=== PATIENT | male | born 1960 | race Caucasian/White ===

== ENCOUNTER 2018-12-20 02:55 | Inpatient (IN) ==
--- NOTE | 2018-12-20 03:24 | Emergency Department Note ---
Disposition Clinical Impression: Non-STEMI (non-ST elevated myocardial infarction), Acute decompensated heart failure, SOB (shortness of breath) Chest pain Qualifiers: Chest pain type: unspecified Qualified Code(s): R07.9 - Chest pain, unspecified Disposition: Admitted As Inpatient Condition: Good Time of Disposition: 05:30 SOB HPI - General Chief Complaint: ED Shortness of Breath/Dyspnea Stated Complaint: KYLE Time Seen by Provider: 12/20/18 03:00 Source: patient, EMS Limitations: no limitations Nursing Notes Reviewed: Yes Vital Signs Reviewed: Yes - History of Present Illness Patient is a 58-year-old male with past medical history of cirrhosis, ascites, COPD, GERD, hypertension, type 2 diabetes who presents with shortness of breath and chest pain. Patient says that the symptoms started earlier this afternoon. States that he was eating some pizza at the time and felt substernal chest pain that was sharp, did not radiate, worsened with exertion. Chest pain lasted about an hour and was not relieved with rest. Patient did not try any other medications to help with the pain. Shortness of breath also has been worsening since this afternoon. Chest pain does not worsen with deep inspiration. He endorses a dry cough, no wheezing. Denies any fevers or chills. Denies nausea, vomiting. - Related Data Home Medications Medication Instructions Recorded Confirmed Folic Acid 1 mg PO DAILY 04/18/15 06/24/15 Furosemide [Lasix] 40 mg PO BID 04/18/15 06/24/15 GlipiZIDE XL (24 HR) [Glucotrol XL] 10 mg PO 0800 04/18/15 06/24/15 Metoprolol [Lopressor] 25 mg PO BID 04/18/15 06/24/15 Omeprazole [PriLOSEC] 40 mg PO DAILY 04/18/15 06/24/15 TraMADol [Ultram] 100 mg PO TID PRN 04/18/15 06/24/15 Docusate [Colace] 100 mg PO DAILY 06/23/15 06/23/15 Tamsulosin [Flomax] 0.4 mg PO DAILY 06/23/15 06/23/15 Thiamine Mononitrate [Vitamin B-1] 100 mg PO DAILY 06/23/15 06/24/15 Previous Rx's Medication Instructions Recorded Spironolactone [Aldactone] 100 mg PO TID #90 tablet 04/18/15 predniSONE [PredniSONE] 60 mg PO DAILY 5 Days tablet 10/14/15 Nortriptyline [Pamelor] 25 mg PO TID PRN #21 capsule 12/08/18 Allergies Allergy/AdvReac Type Severity Reaction Status Date / Time No Known Allergies Allergy Verified 12/08/18 20:09 All systems ED: reviewed and negative except as stated. Review of Systems: As Per HPI Constitutional: Denies: fever, chills, weakness Eyes: Denies: eye pain, eye discharge, vision change ENT ED: Denies: ear pain, throat pain, dental pain Cardiovascular: Reports: chest pain, dyspnea on exertion. Denies: palpitations Respiratory: Reports: cough, dyspnea. Denies: wheezes Gastrointestinal: Denies: abdominal pain, nausea, vomiting Genitourinary: Denies: urgency, dysuria, frequency Musculoskeletal: Denies: back pain, neck pain, joint swelling Integumentary: Denies: rash, abrasion, lesions Neurological: Denies: headache, weakness, numbness Psychiatric: Denies: anxiety, depression, suicidal thoughts Endocrine: Denies: fatigue, heat or cold intolerance, polyuria Past Medical History - Past Medical History Attestation: Yes The following information was validated with the patient. Source: patient Medical history: Reports: arthritis, cirrhosis, COPD, diabetes, GERD, hypertension Surgical history: Reports: other Psychiatric history: Reports: depression - Social History Smoking Status: Current every day smoker Smokeless Tobacco Status: No Alcohol use: Reports: occasionally Drug use: Reports: none Physical Exam GEN: Speaking in phrases while trying to catch breath, no acute distress HEENT: NC, AT. MMM. EOMI, clear conjunctiva, oropharynx clear. NECK: Supple without lymphadenopathy. No stiffness or restricted ROM. HEART: Normal rate and regular rhythm, normal S1/S1, no m/r/g LUNGS: CTAB, moving air well. No crackles or wheezes are heard. ABDOMEN: Soft, nontender, distended abdomen with good bowel sounds heard. BACK: No CVAT, no obvious deformity. EXTREMITIES: Without cyanosis, clubbing or edema. 2+ pitting edema to the bilateral lower extremities. NEUROLOGICAL: Grossly nonfocal. Alert and oriented, moving all 4 extremities. CN not formally tested but appear grossly intact. Observed to ambulate with normal gait. Skin: Warm and dry without any rash. - General Limitations: no limitations General appearance: alert, in no apparent distress Course Course Narrative: Patient was seen and examined. Blood pressure notable for 91/44. Physical exam showed clear lungs though with lower extremity edema. Labs were obtained for chest pain rule out. EKG and troponin was ordered. Chest x-ray was ordered. - Reevaluation(s) Reevaluation #1: Cardiology was consulted at this time. Patient was communicated to Dr. Jeramy Fox. Cardiology will see the patient in the morning. Will start heparin drip now. Time: 05:29 Vital Signs Temperature 98.7 F 12/20/18 03:03 Pulse Rate 85 12/20/18 03:03 Respiratory Rate 16 12/20/18 03:03 Blood Pressure 91/44 12/20/18 03:03 O2 Sat by Pulse Oximetry 100 12/20/18 03:03 Temperature 98.7 F 12/20/18 03:03 Pulse Rate 94 12/20/18 04:57 Respiratory Rate 19 12/20/18 05:01 Blood Pressure 105/73 12/20/18 04:57 O2 Sat by Pulse Oximetry 97 12/20/18 05:01 Oxygen Delivery Oxygen Delivery Nasal Cannula Shortness of Breath/Dyspnea - [facility] Narrative Medical decision making narrative: Patient is a 58-year-old male who presented with shortness of breath and chest pain concerning for a AL yesterday. Differential includes but is not limited to AL, ACS, pneumonia, COPD exacerbation, CHF exacerbation, fluid overload, pneumothorax. Labs remarkable for hemoglobin of 7.9 which is stable. Sodium was 126 which is baseline. Troponin was 4.47. BNP was 3708. Chest x-ray showed cardiomegaly with pulmonary vascular congestion, no focal consolidation concerning for pneumonia or pneumothorax. Low suspicion for COPD exacerbation given character of patient's chest pain and development of shortness of breath following. Patient does appear fluid overloaded on exam with lower extremity swelling. Cardiology was consulted patient was started on a heparin drip. Patient was given 325 aspirin. Patient was also given 40 of Lasix and DuoNeb's for shortness of breath. A CT of his chest showed no PE, showed pleural effusions possibly due to CHF or fluid overload. Patient was admitted to the hospital for management of an NSTEMI and subsequent decompensated heart failure. Patient was communicated to the hospitalists and accepted for admission. - Medical Records Medical records reviewed: Yes I reviewed the patient's medical records. - Lab Data Lab results reviewed: Yes I reviewed the patient's lab results. Result diagrams: 12/20/18 03:10 12/20/18 03:10 Lab Results 12/20/18 12/20/18 12/20/18 Range/Units 03:10 03:10 03:10 WBC 10.4 (4.3-11.1) K/mcL RBC 2.76 L (4.19-5.50) M/mcL Hgb 7.9 L (12.9-16.9) g/dL Hct 25.7 L (37.5-50.1) % MCV 93.1 (83.0-100.0) fL MCH 28.6 (28.0-33.3) pg MCHC 30.7 L (31.6-35.5) g/dL RDW 17.1 H (11.5-14.5) % Plt Count 217 (140-400) K/mcL MPV 10.0 (9.4-12.4) fL Immature Gran % 0.5 (0-4) % Seg Neutrophils % 78.6 % Lymphocytes % 10.5 % Monocytes % 9.0 % Eosinophils % 1.1 % Basophils % 0.3 % Neutrophils # 8.2 (1.6-8.9) K/mcL Lymphocytes # 1.1 (0.6-4.6) K/mcL Monocytes # 0.9 (0.0-1.3) K/mcL Eosinophils # 0.1 (0.0-0.6) K/mcL Basophils # 0.0 (0.0-0.2) K/mcL Heparin Anti-Xa, Unfract (0.30-0.70) IU/mL Sodium 126 L (136-145) mEq/L Potassium 4.1 (3.5-5.1) mEq/L Chloride 93 L (98-107) mEq/L Carbon Dioxide 22 L (23-29) mEq/L BUN 10 (6-20) mg/dL Creatinine 1.13 (0.70-1.30) mg/dL Est GFR ( Amer) > 60 (> 60) Est GFR (Non-Af Amer) > 60 (> 60) BUN/Creatinine Ratio 9 (6-26) Glucose 123 H (70-105) mg/dL Calculated Osmolality 262 L (280-300) Calcium 9.0 (8.6-10.3) mg/dL Total Bilirubin 0.6 (0.3-1.0) mg/dL AST 42 H (13-39) Units/L ALT 19 (7-52) Units/L Alkaline Phosphatase 96 (34-104) Units/L Troponin I 4.47 H* (< 0.04) ng/mL B-Natriuretic Peptide 3708 H (Less than 100) pg/mL Serum Total Protein 7.1 (6.4-8.9) g/dL Albumin 3.8 (3.5-5.7) g/dL Globulin 3.3 (2.4-3.5) g/dL Albumin/Globulin Ratio 1.2 (1.1-2.2) Blood Type Antibody Screen 12/20/18 12/20/18 Range/Units 04:20 04:20 WBC (4.3-11.1) K/mcL RBC (4.19-5.50) M/mcL Hgb (12.9-16.9) g/dL Hct (37.5-50.1) % MCV (83.0-100.0) fL MCH (28.0-33.3) pg MCHC (31.6-35.5) g/dL RDW (11.5-14.5) % Plt Count (140-400) K/mcL MPV (9.4-12.4) fL Immature Gran % (0-4) % Seg Neutrophils % % Lymphocytes % % Monocytes % % Eosinophils % % Basophils % % Neutrophils # (1.6-8.9) K/mcL Lymphocytes # (0.6-4.6) K/mcL Monocytes # (0.0-1.3) K/mcL Eosinophils # (0.0-0.6) K/mcL Basophils # (0.0-0.2) K/mcL Heparin Anti-Xa, Unfract 0.01 L (0.30-0.70) IU/mL Sodium (136-145) mEq/L Potassium (3.5-5.1) mEq/L Chloride (98-107) mEq/L Carbon Dioxide (23-29) mEq/L BUN (6-20) mg/dL Creatinine (0.70-1.30) mg/dL Est GFR ( Amer) (> 60) Est GFR (Non-Af Amer) (> 60) BUN/Creatinine Ratio (6-26) Glucose (70-105) mg/dL Calculated Osmolality (280-300) Calcium (8.6-10.3) mg/dL Total Bilirubin (0.3-1.0) mg/dL AST (13-39) Units/L ALT (7-52) Units/L Alkaline Phosphatase (34-104) Units/L Troponin I (< 0.04) ng/mL B-Natriuretic Peptide (Less than 100) pg/mL Serum Total Protein (6.4-8.9) g/dL Albumin (3.5-5.7) g/dL Globulin (2.4-3.5) g/dL Albumin/Globulin Ratio (1.1-2.2) Blood Type A POSITIVE Antibody Screen NEGATIVE - Radiology Data Radiology results reviewed: Yes I reviewed the patient's radiology results. Chest X-Ray 12/20/18 03:06 IMPRESSION: Cardiomegaly with pulmonary vascular congestion. D/ / Mark Kiran / Mark Kiran Interpreting Provider: Mark Kiran Chest CTA 12/20/18 04:01 IMPRESSION: 1. No pulmonary embolism. 2. Mild edema with small pleural effusions, consistent with CHF or fluid overload. 3. Cirrhosis. D/ / Christopher Rojas MD / Christopher Rojas MD Interpreting Provider: Christopher Rojas MD - EKG Data EKG attestation: Yes I reviewed and interpreted this EKG. EKG results narrative: An EKG was obtained at 3:02 AM. My interpretation of the EKG is NSR, no axis deviation, normal intervals, no ST elevations or depressions, no T-wave inversions. No WPW, brugada, HOCM. Compared to prior from 10/26/2015.
[2018-12-20 03:25] LABS: Basophils % 0.3 %; Eosinophils # 0.1 K/mcL (0.0-0.6); Eosinophils % 1.1 %; Hematocrit 25.7 % (37.5-50.1); Hemoglobin 7.9 g/dL (12.9-16.9); Immature Granulocytes % 0.5 % (0-4); Lymphocytes # 1.1 K/mcL (0.6-4.6); Lymphocytes % 10.5 %; Mean Corpuscular HGB Conc 30.7 g/dL (31.6-35.5); Mean Corpuscular Hemoglobin 28.6 pg (28.0-33.3); Mean Corpuscular Volume 93.1 fL (83.0-100.0); Monocytes # 0.9 K/mcL (0.0-1.3); Neutrophils # 8.2 K/mcL (1.6-8.9); Platelet Count 217 K/mcL (140-400); Red Blood Count 2.76 M/mcL (4.19-5.50); Red Cell Distribution Width 17.1 % (11.5-14.5); Segmented Neutrophils % 78.6 %; White Blood Count 10.4 K/mcL (4.3-11.1)
[2018-12-20 03:47] LABS: Alanine Aminotransferase 19 Units/L (7-52); Albumin 3.8 g/dL (3.5-5.7); Albumin/Globulin Ratio 1.2 (1.1-2.2); Alkaline Phosphatase 96 Units/L (34-104); Aspartate Amino Transferase 42 Units/L (13-39); BUN/Creatinine Ratio 9 (6-26); Bilirubin,Total 0.6 mg/dL (0.3-1.0); Blood Urea Nitrogen 10 mg/dL (6-20); Carbon Dioxide 22 mEq/L (23-29); Chloride 93 mEq/L (98-107); Globulin 3.3 g/dL (2.4-3.5); Glucose 123 mg/dL (70-105); Osmolality,Calculated 262 (280-300); Potassium 4.1 mEq/L (3.5-5.1); Sodium 126 mEq/L (136-145); Total Protein 7.1 g/dL (6.4-8.9); Troponin I 4.47 ng/mL (< 0.04); eGFR For African Americans > 60 (> 60); eGFR For Non-African Americans > 60 (> 60)
[2018-12-20] MEDS ORDERED: Isovue-370 500 ML BOTTLE IVP ONE (04:01)
[2018-12-20] MEDS ORDERED: Aspirin 325 MG TABLET PO ONE (04:03)
--- NOTE | 2018-12-20 04:08 | Emergency Department Note ---
Disposition Clinical Impression: Non-STEMI (non-ST elevated myocardial infarction), Acute decompensated heart failure, SOB (shortness of breath) Disposition: Admitted As Inpatient Condition: Serious Referrals: Sadi Xiong DO [Primary Care Provider] - Forms: ED Satisfaction Letter Time of Disposition: 05:18 General Adult HPI - General Chief complaint: ED Shortness of Breath/Dyspnea Stated complaint: KYLE Time Seen by Provider: 12/20/18 03:00 Source: patient, EMS Limitations: no limitations Nursing Notes Reviewed: Yes Vital Signs Reviewed: Yes - History of Present Illness Pain Scale: 7 - Related Data Home Medications Medication Instructions Recorded Confirmed Folic Acid 1 mg PO DAILY 04/18/15 06/24/15 Furosemide [Lasix] 40 mg PO BID 04/18/15 06/24/15 GlipiZIDE XL (24 HR) [Glucotrol XL] 10 mg PO 0800 04/18/15 06/24/15 Metoprolol [Lopressor] 25 mg PO BID 04/18/15 06/24/15 Omeprazole [PriLOSEC] 40 mg PO DAILY 04/18/15 06/24/15 TraMADol [Ultram] 100 mg PO TID PRN 04/18/15 06/24/15 Docusate [Colace] 100 mg PO DAILY 06/23/15 06/23/15 Tamsulosin [Flomax] 0.4 mg PO DAILY 06/23/15 06/23/15 Thiamine Mononitrate [Vitamin B-1] 100 mg PO DAILY 06/23/15 06/24/15 Previous Rx's Medication Instructions Recorded Spironolactone [Aldactone] 100 mg PO TID #90 tablet 04/18/15 predniSONE [PredniSONE] 60 mg PO DAILY 5 Days tablet 10/14/15 Nortriptyline [Pamelor] 25 mg PO TID PRN #21 capsule 12/08/18 Allergies Allergy/AdvReac Type Severity Reaction Status Date / Time No Known Allergies Allergy Verified 12/08/18 20:09 Constitutional: Denies: fever, chills, weakness Eyes: Denies: eye pain, eye discharge, vision change ENT ED: Denies: ear pain, throat pain, dental pain Cardiovascular: Reports: chest pain, dyspnea on exertion. Denies: palpitations Respiratory: Reports: cough, dyspnea. Denies: wheezes Gastrointestinal: Denies: abdominal pain, nausea, vomiting Genitourinary: Denies: urgency, dysuria, frequency Musculoskeletal: Denies: back pain, neck pain, joint swelling Integumentary: Denies: rash, abrasion, lesions Neurological: Denies: headache, weakness, numbness Psychiatric: Denies: anxiety, depression, suicidal thoughts Endocrine: Denies: fatigue, heat or cold intolerance, polyuria Past Medical History - Past Medical History Medical history: Reports: arthritis, cirrhosis, COPD, diabetes, GERD, hypertension Surgical history: Reports: other Psychiatric history: Reports: depression - Social History Smoking Status: Current every day smoker Smokeless Tobacco Status: No Alcohol use: Reports: occasionally Drug use: Reports: none Physical Exam - General Limitations: no limitations General appearance: alert, in no apparent distress Course Vital Signs Temperature 98.7 F 12/20/18 03:03 Pulse Rate 85 12/20/18 03:03 Respiratory Rate 16 12/20/18 03:03 Blood Pressure 91/44 12/20/18 03:03 O2 Sat by Pulse Oximetry 100 12/20/18 03:03 Temperature 98.7 F 12/20/18 03:03 Pulse Rate 94 12/20/18 04:57 Respiratory Rate 19 12/20/18 05:01 Blood Pressure 105/73 12/20/18 04:57 O2 Sat by Pulse Oximetry 97 12/20/18 05:01 Oxygen Delivery Oxygen Delivery Nasal Cannula Medical Decision Making - Lab Data Result diagrams: 12/20/18 03:10 12/20/18 03:10 Lab Results 12/20/18 12/20/18 12/20/18 Range/Units 03:10 03:10 03:10 WBC 10.4 (4.3-11.1) K/mcL RBC 2.76 L (4.19-5.50) M/mcL Hgb 7.9 L (12.9-16.9) g/dL Hct 25.7 L (37.5-50.1) % MCV 93.1 (83.0-100.0) fL MCH 28.6 (28.0-33.3) pg MCHC 30.7 L (31.6-35.5) g/dL RDW 17.1 H (11.5-14.5) % Plt Count 217 (140-400) K/mcL MPV 10.0 (9.4-12.4) fL Immature Gran % 0.5 (0-4) % Seg Neutrophils % 78.6 % Lymphocytes % 10.5 % Monocytes % 9.0 % Eosinophils % 1.1 % Basophils % 0.3 % Neutrophils # 8.2 (1.6-8.9) K/mcL Lymphocytes # 1.1 (0.6-4.6) K/mcL Monocytes # 0.9 (0.0-1.3) K/mcL Eosinophils # 0.1 (0.0-0.6) K/mcL Basophils # 0.0 (0.0-0.2) K/mcL Heparin Anti-Xa, Unfract (0.30-0.70) IU/mL Sodium 126 L (136-145) mEq/L Potassium 4.1 (3.5-5.1) mEq/L Chloride 93 L (98-107) mEq/L Carbon Dioxide 22 L (23-29) mEq/L BUN 10 (6-20) mg/dL Creatinine 1.13 (0.70-1.30) mg/dL Est GFR ( Amer) > 60 (> 60) Est GFR (Non-Af Amer) > 60 (> 60) BUN/Creatinine Ratio 9 (6-26) Glucose 123 H (70-105) mg/dL Calculated Osmolality 262 L (280-300) Calcium 9.0 (8.6-10.3) mg/dL Total Bilirubin 0.6 (0.3-1.0) mg/dL AST 42 H (13-39) Units/L ALT 19 (7-52) Units/L Alkaline Phosphatase 96 (34-104) Units/L Troponin I 4.47 H* (< 0.04) ng/mL B-Natriuretic Peptide 3708 H (Less than 100) pg/mL Serum Total Protein 7.1 (6.4-8.9) g/dL Albumin 3.8 (3.5-5.7) g/dL Globulin 3.3 (2.4-3.5) g/dL Albumin/Globulin Ratio 1.2 (1.1-2.2) Blood Type 12/20/18 12/20/18 Range/Units 04:20 04:20 WBC (4.3-11.1) K/mcL RBC (4.19-5.50) M/mcL Hgb (12.9-16.9) g/dL Hct (37.5-50.1) % MCV (83.0-100.0) fL MCH (28.0-33.3) pg MCHC (31.6-35.5) g/dL RDW (11.5-14.5) % Plt Count (140-400) K/mcL MPV (9.4-12.4) fL Immature Gran % (0-4) % Seg Neutrophils % % Lymphocytes % % Monocytes % % Eosinophils % % Basophils % % Neutrophils # (1.6-8.9) K/mcL Lymphocytes # (0.6-4.6) K/mcL Monocytes # (0.0-1.3) K/mcL Eosinophils # (0.0-0.6) K/mcL Basophils # (0.0-0.2) K/mcL Heparin Anti-Xa, Unfract 0.01 L (0.30-0.70) IU/mL Sodium (136-145) mEq/L Potassium (3.5-5.1) mEq/L Chloride (98-107) mEq/L Carbon Dioxide (23-29) mEq/L BUN (6-20) mg/dL Creatinine (0.70-1.30) mg/dL Est GFR ( Amer) (> 60) Est GFR (Non-Af Amer) (> 60) BUN/Creatinine Ratio (6-26) Glucose (70-105) mg/dL Calculated Osmolality (280-300) Calcium (8.6-10.3) mg/dL Total Bilirubin (0.3-1.0) mg/dL AST (13-39) Units/L ALT (7-52) Units/L Alkaline Phosphatase (34-104) Units/L Troponin I (< 0.04) ng/mL B-Natriuretic Peptide (Less than 100) pg/mL Serum Total Protein (6.4-8.9) g/dL Albumin (3.5-5.7) g/dL Globulin (2.4-3.5) g/dL Albumin/Globulin Ratio (1.1-2.2) Blood Type A POSITIVE Critical Care Time Critical Care Time: Yes Total Critical Care Time: 40 Attestation: Critical care performed: Time is exclusive of separately billable procedures. Time includes: direct patient care, patient reassessment, coordination of patient care, interpretation of data (laboratory data, radiology data, and respiratory data), review of patient's medical records, medical consultation and documentation of patient care. Procedures included in critical care time: Procedures excluded from critical care time: Attestation Statement - Attestation Attestation: I examined this patient and my medical decision-making was reviewed with the Resident Physician. I agree with the documented findings, disposition and treatment plan as described except to the extent set forth below. 'Patient to the ED with a chief complaint of shortness of breath. Worsening throughout the day. Patient an episode of chest pain last night at 2 AM while eating pizza. It resolved. He is currently pain-free. Dry cough. No fever. History of COPD. No cardiac history. He is diabetic. On examination he is in no distress. His lungs are clear. He has 2-3+ pitting edema in his lower extremities. Plan. Cardiac workup. EKG reviewed with the resident. Inferior mild depressions. No ST elevations. Troponin elevated at 4. Reevaluated the patient. Still not having any chest pain. We will check a CTA as his lungs are clear and his dyspneic. Bedside echo performed by Dr. Gilmore and myself. Posterior wall appears hypokinetic. Patient receiving aspirin at this time.
[2018-12-20] MEDS ORDERED: Furosemide 40 MG/4 ML VIAL IVP ONE (04:53)
[2018-12-20] MEDS ORDERED: Ipratropium/Albuterol Neb 3 ML IH ONE (04:53)
[2018-12-20] MEDS ORDERED: *HR* Heparin 5,000 UNIT/ML VIAL IVP PRN ×2 (05:17)
[2018-12-20] MEDS ORDERED: *HR* Heparin 5,000 UNIT/ML VIAL IVP ONE (05:17)
[2018-12-20] MEDS ORDERED: Heparin 25,000 UNIT/250 ML D5W 25,000 UNIT/250 ML IV.SOLN IVC SCH (05:30)
[2018-12-20] MEDS ORDERED: Naloxone 0.4 MG/ML INJ IVP PRN (06:26)
[2018-12-20] MEDS ORDERED: *HR* LORazepam 2 MG/ML VIAL IVP PRN (06:26)
[2018-12-20] MEDS ORDERED: Ondansetron 4 MG/2 ML VIAL IVP PRN (06:26)
[2018-12-20] MEDS ORDERED: Pantoprazole 40 MG in 0.9 % Sodium Chloride Mini Bag 100 ML IVC SCH (06:30)
[2018-12-20] MEDS ORDERED: *HR* Dextrose 50 % in Water (Syg) 50 ML SYRINGE IVP PRN (06:38)
[2018-12-20] MEDS ORDERED: D5% in Water 1,000 ML IVC PRN (06:38)
[2018-12-20] MEDS ORDERED: Dextrose Gel 15 GM/37.5 ML TUBE PO PRN ×2 (06:38)
[2018-12-20] MEDS ORDERED: Morphine Sulfate 2 MG/ML SYRINGE IVP PRN (06:39)
--- NOTE | 2018-12-20 06:53 | Internal Med History&Physical ---
Date of Encounter: 12/20/18 Time of Encounter: 06:20 Internal Medicine - H&P: HPI Chief complaint: SOB Admitted From: Emergency Dept Plans for Post Hospital Care: Home History of present illness: Mr. Reynolds is a 58 year old male presents to the ER with 3-4 day history of shortness of breath, progressive orthopnea, edema, and fatigue. Workup in ER revealed patient to have a non-STEMI, anemia, and hyponatremia. Patient was given aspirin and was about to start heparin drip. Consult was made to cardiology and recommendation was made to start heparin drip, ASA, and BB. He was then admitted to hospitalist service. Upon my assessment of the patient, I reviewed his old records and note that he has cirrhosis, esophageal varices, and anemia. Upon further questioning of the patient, patient states he is due to see Dr. Aguila tomorrow for colonoscopy as he has been having some bloody stools. His last EGD was in 2014 showing grade 1 varices. Because of the reported GI bleeding, anemia, cirrhosis, and high risk of further bleeding, I asked ER to cancel heparin drip and transfuse 2 units packed red cells at this moment. Patient drinks roughly 12 beers per day every day and is already tremulous and appears as though he may be withdrawing. He denies any chest pain at this time. However, he does state that he has become progressively short of breath over last few days. He admits to several pound weight gain and increased abdominal girth. Past Med Surg Social Fam HX - Past Medical History Attestation: Yes The following information was validated with the patient. Source: old records reviewed Medical history: arthritis, cirrhosis, COPD, diabetes, GERD, hypertension Additional medical history: alcoholic cirrhosis Psychiatric history: depression - Past Surgical History Surgical History: tonsillectomy Additional surgical history: tonsillectomy. EGD. colonoscopy - Social History Smoking Status: Current every day smoker Smokeless Tobacco Status: No Alcohol use: heavy Drug use: none Current living situation: Home Activity Level: Independent ambulation Recent Out of Country Travel Within the Last 8 Weeks: No - Family History Mother Adopted: No Family Member Ethnicity: Non- Living Status: Hx Family Endocrine Disorder: Yes (diabetes) Internal Medicine - H&P: Meds Folic Acid 1 mg PO DAILY 04/18/15 [History] Furosemide [Lasix] 40 mg PO BID 04/18/15 [History] GlipiZIDE XL (24 HR) [Glucotrol XL] 10 mg PO 0800 04/18/15 [History] Metoprolol [Lopressor] 25 mg PO BID 04/18/15 [History] Omeprazole [PriLOSEC] 40 mg PO DAILY 04/18/15 [History] Spironolactone [Aldactone] 100 mg PO TID #90 tablet 04/18/15 [Rx] TraMADol [Ultram] 100 mg PO TID PRN 04/18/15 [History] Docusate [Colace] 100 mg PO DAILY 06/23/15 [History] Tamsulosin [Flomax] 0.4 mg PO DAILY 06/23/15 [History] Thiamine Mononitrate [Vitamin B-1] 100 mg PO DAILY 06/23/15 [History] predniSONE [PredniSONE] 60 mg PO DAILY 5 Days tablet 10/14/15 [Rx] Nortriptyline [Pamelor] 25 mg PO TID PRN #21 capsule 12/08/18 [Rx] Allergy/AdvReac Type Severity Reaction Status Date / Time No Known Allergies Allergy Verified 12/08/18 20:09 - Constitutional Constitutional: fatigue, weight gain, no chills, no fever(s), no night sweats - EENT Eyes: no blurry vision, no change in vision Ears: no ear pain, no tinnitus Nose, mouth and throat: no nasal congestion, no sore throat - Cardiovascular Cardiovascular ROS IM: diaphoresis, dyspnea, dyspnea on exertion, edema, orthopnea, paroxysmal nocturnal dyspnea, no chest pain - Respiratory Respiratory: no cough, no hemoptysis, no chest congestion, no excessive phlegm production - Gastrointestinal Gastrointestinal: bloating, melena, no coffee ground emesis, no diarrhea, no heartburn, no hematemesis, no hematochezia, no nausea, no vomiting - Genitourinary Genitourinary ROS male: no dysuria, no flank pain, no hematuria - Musculoskeletal Musculoskeletal ROS IM: arthralgias - Integumentary Integumentary IM: no rash, no jaundice - Neurological Neurological ROS: no dizziness, no focal weakness, no frequent falls, no headache(s) - Psychiatric Psychiatric: no anxiety, no depression - Endocrine Endocrine IM: no polydipsia, no polyphagia, no polyuria - Allergic/Immunologic Allergic/Immunologic: no GI upset with certain foods - Constitutional Vitals: Temp Pulse Resp BP Pulse Ox 98.7 F 94 19 105/73 97 12/20/18 03:03 12/20/18 04:57 12/20/18 05:01 12/20/18 04:57 12/20/18 05:01 General appearance: Present: cooperative, disheveled, mild distress, A&O X 3, pleasant, answers questions appropriately Exam: tremulous; mildly SOB; disheveled - Head Head exam: Present: normal inspection - Eye Eye exam: Present: EOMI, PERRL. Absent: scleral icterus Pupils: Present: normal accommodation - ENT ENT exam: Present: mucous membranes dry, normal exam, normal oropharynx - Neck Neck exam general surgery: Present: full ROM, supple, trachea midline. Absent: tenderness, nuchal rigidity, thyromegaly - Respiratory Respiratory exam: Present: rales, respiratory distress (mild), rhonchi, tachypnea. Absent: chest wall tenderness, wheezes - Cardiovascular Cardiovascular exam: Present: distant heart sounds, RRR, +S1, +S2, systolic murmur. Absent: diastolic murmur - GI/Abdominal GI/Abdominal exam: Present: normal bowel sounds, soft. Absent: guarding, hepatomegaly, mass, rebound, splenomegaly, tenderness - Extremities Exam Extremities exam: Present: full ROM, pedal edema (2-3+), warm, radial pulses palpable and symmetrical. Absent: calf tenderness, joint swelling, tenderness - Back Exam Back exam: Present: normal inspection. Absent: CVA tenderness (L), CVA tenderness (R) - Neurological Exam Neurological exam: Present: alert, CN II-XII intact, oriented X3, no focal deficits, strengths equal and symetr throughout. Absent: motor sensory deficit Additional comments: mild tremors - Psychiatric Psychiatric exam: Present: anxious - Skin Skin exam: Present: dry, intact, pallor Internal Med - H&P Results - Labs CBC & Chem 7: 12/20/18 03:10 12/20/18 03:10 Labs: Short CBC 12/20/18 Range/Units 03:10 WBC 10.4 (4.3-11.1) K/mcL Hgb 7.9 L (12.9-16.9) g/dL Hct 25.7 L (37.5-50.1) % Plt Count 217 (140-400) K/mcL Neutrophils # 8.2 (1.6-8.9) K/mcL BMP 12/20/18 03:10 Sodium 126 L Potassium 4.1 Chloride 93 L Carbon Dioxide 22 L BUN 10 Creatinine 1.13 Glucose 123 H Calcium 9.0 Cardiac Enzymes 12/20/18 Range/Units 03:10 Troponin I 4.47 H* (< 0.04) ng/mL Liver Function 12/20/18 Range/Units 03:10 Total Bilirubin 0.6 (0.3-1.0) mg/dL AST 42 H (13-39) Units/L ALT 19 (7-52) Units/L Alkaline Phosphatase 96 (34-104) Units/L Albumin 3.8 (3.5-5.7) g/dL - EKG Data -: EKG Interpreted by Myself - EKG Data Prior EKG available for review: no EKG comments: 12/20/18 07:[address]-T changes; Poor R wave progression - Impressions ITS Impressions Chest X-Ray 12/20/18 03:06 IMPRESSION: Cardiomegaly with pulmonary vascular congestion. D/ / Mark Kiran / Mark Kiran Interpreting Provider: Mark Kiran Chest CTA 12/20/18 04:01 IMPRESSION: 1. No pulmonary embolism. 2. Mild edema with small pleural effusions, consistent with CHF or fluid overload. 3. Cirrhosis. D/ / Christopher Rojas MD / Christopher Rojas MD Interpreting Provider: Christopher Rojas MD - Diagnostic Studies Chest x-ray Status: image reviewed by me (CHF) - Assessment and Plan (1) Non-STEMI (non-ST elevated myocardial infarction) Current Visit: Yes Status: Acute Assessment and plan: 1. Supportive measures with PRBC transfusion. 2. Hold off Heparin gtt until GI bleed stabilizes and endoscopy can be performed. 3. ECHO, trend troponins, consult Cardiology. 4. Monitor on telemetry. (2) GI bleed Current Visit: Yes Status: Chronic Assessment and plan: 1. Consult GI. 2. Protonix drip. 3. Monitor serial H/H; transfuse as necessary. Qualifiers: GI bleed type/associated pathology: unspecified gastrointestinal hemorrhage type Qualified Code(s): K92.2 - Gastrointestinal hemorrhage, unspecified (3) Acute decompensated heart failure Current Visit: Yes Status: Acute Assessment and plan: 1. Fluid restrict; Lasix diuresis. 2. Monitor I/O. 3. ECHO ordered. 4. Supportive measures. (4) DVT prophylaxis Current Visit: Yes Status: Acute Assessment and plan: 1. EPCD's. (5) Alcoholism Current Visit: Yes Status: Acute Assessment and plan: 1. Will place on CIWA protocol and monitor for withdrawal. 2. MVI/Thiamine/Folate.
[2018-12-20 07:42] LABS: Hematocrit 24.7 % (37.5-50.1); Hemoglobin 7.5 g/dL (12.9-16.9)
[2018-12-20 07:50] LABS: INR 1.1; Prothrombin Time 12.8 Seconds (9.4-12.1)
[2018-12-20 07:52] LABS: Activated Partial Thrombo Time 29.2 Seconds (26.0-36.0)
[2018-12-20 08:29] LABS: Bilirubin,Urine Negative (Negative); Blood,Urine Negative (Negative); Clarity,Urine Clear (Clear); Color,Urine Yellow (Yellow); Glucose,Urine (UA) Normal (Normal); Ketones,Urine Negative (Negative); Leukocyte Esterase,Urine Negative (Negative); Nitrite,Urine Negative (Negative); Protein,Urine Negative (Neg-Trace); Specific Gravity,Urine 1.023 (1.010-1.025); Urobilinogen,Urine Normal (Normal)
--- NOTE | 2018-12-20 10:08 | Cardiology Consult Note ---
Date of Encounter: 12/20/18 Time of Encounter: 09:00 Assessment and Plan (1) Non-STEMI (non-ST elevated myocardial infarction) Current Visit: Yes Status: Acute Per cardiology: -NSTEMI with trops 4.47, 2.81. -Denies current chest pain, however admitted to chest pain Friday. -ECG with non-specific ST and T wave abnormalities noted. -TTE pending. -Not on asa or heparin drip due to acute anemia, reports melena. -Will start statin and BB. No asa or heparin due to anemia, melena. -Patient is not currently a candidate for LHC with acute anemia, pending GI work up. However, discussed potential LHC during this admission and patient refuses. Risks of no LHC explained to patient, who states understanding. -Will treat medically, no cardiac rehab consult at this time. -Further recs pending TTE. (2) GI bleed Current Visit: Yes Status: Acute Per cardiology: -Hemoglobin 7.5, worse than baseline. -Reports melena. -Known history of esophageal varices. -GI consult pending. -Management per primary and GI services. Qualifiers: GI bleed type/associated pathology: unspecified gastrointestinal hemorrhage type Qualified Code(s): K92.2 - Gastrointestinal hemorrhage, unspecified (3) CHF (congestive heart failure) Current Visit: Yes Status: Acute Per cardiology: -Acute CHF, reports NYHA class III symptoms. -TTE pending. -TTE 07/2018 with LVEF 55-60%, mild concentric LVH, mild diastolic dysfunction, no segmental wall motion abnormalities noted. -X-ray with pulmonaru vascular congestion. -On IV lasix. -Still requiring O2, not normally on at home. -Agree with IV diuresis. -Strict i/so, fluid restriction, daily weights. -CHF education reviewed with patient. -Further recs pending TTE. Qualifiers: Heart failure type: unspecified Heart failure chronicity: acute Qualified Code(s): I50.9 - Heart failure, unspecified Discussion w patient/family: The assessment and plan as outlined above was discussed with the patient who expressed understanding and agreement. All questions were answered. Thank you for involving us in the care of your patient. Please call with any questions. Discussed and reviewed with . History of Present Illness Consult date: 12/20/18 Requesting physician: Tanvir Gilmore Consult reason: NSTEMI Chief complaint: shortness of breath History of present illness: Mr. Reynolds is a 58 year old male with a relevant past medical history of ETOH abuse reported 10-20 beers per day since age 8, cirrhosis, esophageal varices, HTN, CVA, astham, obesity, COPD, DM, HLD, who presented to [facility] with complaints of shortness of breath. Patient states symptoms started on Friday, states he felt like he was drowning. Patient also reported chest discomfort on Friday, states he contributed it to GERD, since it was after eating a pizza. Patient denies current chest discomfort. Reports shortness of breath has imrpoved since admission. Patient does report currently drinking about 10-12 beers per day. Past Med Surg Social Fam HX - Past Medical History Attestation: Yes The following information was validated with the patient. Source: patient, old records reviewed Medical history: arthritis, cirrhosis, COPD, diabetes, GERD, hypertension Additional medical history: alcoholic cirrhosis Psychiatric history: depression - Past Surgical History Surgical History: tonsillectomy Additional surgical history: tonsillectomy. EGD. colonoscopy - Social History Smoking Status: Current every day smoker Packs per day: 1 Smokeless Tobacco Status: No Alcohol use: heavy Drug use: none - Family History Mother Adopted: No Family Member Ethnicity: Non- Living Status: Hx Family Endocrine Disorder: Yes (diabetes) Medications and Allergies Folic Acid 1 mg PO DAILY 04/18/15 [History] Furosemide [Lasix] 40 mg PO BID 04/18/15 [History] GlipiZIDE XL (24 HR) [Glucotrol XL] 10 mg PO 0800 04/18/15 [History] Metoprolol [Lopressor] 25 mg PO BID 04/18/15 [History] Omeprazole [PriLOSEC] 40 mg PO DAILY 04/18/15 [History] Spironolactone [Aldactone] 100 mg PO TID #90 tablet 04/18/15 [Rx] TraMADol [Ultram] 100 mg PO TID PRN 04/18/15 [History] Docusate [Colace] 100 mg PO DAILY 06/23/15 [History] Tamsulosin [Flomax] 0.4 mg PO DAILY 06/23/15 [History] Thiamine Mononitrate [Vitamin B-1] 100 mg PO DAILY 06/23/15 [History] predniSONE [PredniSONE] 60 mg PO DAILY 5 Days tablet 10/14/15 [Rx] Nortriptyline [Pamelor] 25 mg PO TID PRN #21 capsule 12/08/18 [Rx] Allergy/AdvReac Type Severity Reaction Status Date / Time No Known Allergies Allergy Verified 12/08/18 20:09 All Systems Review: The remainder of the systems were reviewed and are negative - Cardiovascular Cardiovascular: as per HPI, chest pain at rest, dyspnea at rest, dyspnea on exertion Physical Examination Vital Signs, Last 4 Hours Temp Pulse Resp BP Pulse Ox 12/20/18 07:44 98.4 F 90 18 127/63 99 General: Conversant, No Apparent Distress HEENT: Atraumatic, Normocephaly, Mucus Membranes Moist Neck: No JVD, Normal carotid pulses Cardiac: Reg Rate and Rhythm, Normal S1 and S2, No Murmur Lungs: Other (Lung sounds diminished throughout. ) Neuro: Alert and responsive, No focal deficits noted Abdomen: Soft, Non-Tender Skin: No rashes noted on visualized skin Musculoskeletal: No Chest Wall Tenderness Extremities: No Clubbing, No Cyanosis, No Edema, Normal Pulses Results 12/20/18 07:29 12/20/18 03:10 Lab Results Impressions Chest X-Ray 12/20/18 03:06 IMPRESSION: Cardiomegaly with pulmonary vascular congestion. D/ / Mark Kiran / Mark Kiran Interpreting Provider: Mark Kiran Chest CTA 12/20/18 04:01 IMPRESSION: 1. No pulmonary embolism. 2. Mild edema with small pleural effusions, consistent with CHF or fluid overload. 3. Cirrhosis. D/ / Christopher Rojas MD / Christopher oRjas MD Interpreting Provider: Christopher Rojas MD Active Medications Dextrose/Water (Dextrose 50% (Syg)) 25 ml IVP AD PRN PRN Reason: Hypoglycemia Stop: 06/21/19 06:39 Furosemide (Lasix) 40 mg IVP BID [facility] Stop: 06/21/19 09:01 Glucagon (Glucagen) 1 mg IM ONCE PRN PRN Reason: Hypoglycemia Stop: 06/21/19 06:39 Glucose (Gluctose) 15 gm PO ONCE PRN PRN Reason: Hypoglycemia Stop: 06/21/19 06:39 Glucose (Gluctose) 30 gm PO ONCE PRN PRN Reason: Hypoglycemia Stop: 06/21/19 06:39 Dextrose (Dextrose 5%) 1,000 mls @ 100 mls/hr IVC .Q10H PRN PRN Reason: HYPOGLYCEMIA Stop: 06/21/19 06:39 Thiamine HCl 100 mg/ Folic Acid 1 mg/ Multivitamins 10 ml / Sodium Chloride 511.2 mls @ 85.2 mls/hr IVPB DAILY@1800 [facility] Stop: 12/22/18 23:59 Pantoprazole Sodium 40 mg/ (Sodium Chloride) 100 mls @ 20 mls/hr IVC .Q5H [facility] Stop: 06/21/19 06:31 Insulin Human Lispro (Humalog) 0 units SQ Q6HR [facility]; Protocol Stop: 06/21/19 12:01 Lorazepam (Ativan) 1 mg IVP Q1H PRN PRN Reason: Alcohol Withdrawal Stop: 06/21/19 06:27 Morphine Sulfate (Morphine) 2 mg IVP Q3H PRN; Protocol PRN Reason: Chest Pain Stop: 06/21/19 06:40 Naloxone HCl (Narcan) 0.4 mg IVP Q2MPRN PRN PRN Reason: SEE COMMENTS Stop: 06/21/19 06:27 Ondansetron HCl (Zofran) 4 mg IVP Q8HR PRN PRN Reason: Nausea And Vomiting Stop: 06/21/19 06:27 Laboratory Tests 12/20/18 12/20/18 12/20/18 03:10 03:10 03:10 Hgb 7.9 L Creatinine 1.13 AST 42 H ALT 19 Troponin I 4.47 H* B-Natriuretic Peptide 3708 H 12/20/18 07:29 Hgb Creatinine AST ALT Troponin I 2.81 H* B-Natriuretic Peptide - Imaging and Cardiology Chest Xray: report reviewed Echo: pending - EKG Interpretation EKG results cardiology: personally reviewed (ECG with SR, HR 80. Non-specific ST and T wave abnormalities noted.), other (Telemetry reviewed with average HR previous 12 hours noted to be 94, SR. PVCs, PACs noted.) Consult Discharge Plan - Plan Referrals: Sadi Xiong DO [Primary Care Provider] -
[2018-12-20] MEDS: Furosemide 40 MG/4 ML VIAL IVP SCH ×2 (10:37→21:28)
[2018-12-20] MEDS: Metoprolol XL (24 HR) Succ 25 MG TAB.ER.24H PO SCH (11:44)
[2018-12-20 13:13] LABS: Hematocrit 25.2 % (37.5-50.1); Hemoglobin 7.8 g/dL (12.9-16.9)
--- NOTE | 2018-12-20 13:16 | Event Note ---
Date of Encounter: 12/20/18 Time of Encounter: 13:13 I have seen and evaluated the patient at bedside. H&P, labs and image studies reviewed. Patient reported having dark stool on Friday and Friday. Denies chest pain during my evaluation. DC PPI drip started on pantoprazole 40mg/IV BID. continue IV diuretics. elevated trops. cardiolog recommended medical management will continue to follow up
[2018-12-20] MEDS: Insulin LISPRO 300 UNITS/3 ML VIAL SQ SCH ×2 (13:24→17:45)
[2018-12-20] MEDS: Nicotine 21 MG PATCH.TD24 TD SCH (13:25)
[2018-12-20] MEDS ORDERED: 0.9 % Sodium Chloride 250 ML ONE (13:45)
[2018-12-20] MEDS: Pantoprazole 40 MG VIAL IVP SCH ×2 (15:47→17:46)
[2018-12-20] MEDS: *HR* HYDROcodone/Acet 5/325 mg TABLET PO PRN (17:47)
[2018-12-20] MEDS ORDERED: Thiamine (B-1) 100 MG, Folic Acid 1 MG, MVI, adult with vitamin K 10 ML in 0.9 % Sodi... IVPB SCH (18:00)
[2018-12-20 18:55] LABS: Hematocrit 27.2 % (37.5-50.1); Hemoglobin 8.6 g/dL (12.9-16.9)
[2018-12-20] MEDS ORDERED: *HR* OxyCODONE Immed Rel 5 MG TABLET PO ONE (21:13)
[2018-12-21] MEDS: Insulin LISPRO 300 UNITS/3 ML VIAL SQ SCH ×4 (04:36→20:45)
[2018-12-21] MEDS: *HR* HYDROcodone/Acet 5/325 mg TABLET PO PRN ×3 (05:20→22:19)
[2018-12-21] MEDS: Pantoprazole 40 MG VIAL IVP SCH (05:22)
[2018-12-21 05:32] LABS: Basophils % 0.3 %; Eosinophils # 0.1 K/mcL (0.0-0.6); Eosinophils % 1.4 %; Hematocrit 26.7 % (37.5-50.1); Hemoglobin 8.4 g/dL (12.9-16.9); Immature Granulocytes % 0.5 % (0-4); Lymphocytes % 11.9 %; Mean Corpuscular HGB Conc 31.5 g/dL (31.6-35.5); Mean Corpuscular Hemoglobin 28.3 pg (28.0-33.3); Mean Corpuscular Volume 89.9 fL (83.0-100.0); Mean Platelet Volume 10.2 fL (9.4-12.4); Monocytes # 0.8 K/mcL (0.0-1.3); Monocytes % 9.5 %; Neutrophils # 6.6 K/mcL (1.6-8.9); Platelet Count 212 K/mcL (140-400); Red Blood Count 2.97 M/mcL (4.19-5.50); Red Cell Distribution Width 17.8 % (11.5-14.5); Segmented Neutrophils % 76.4 %; White Blood Count 8.6 K/mcL (4.3-11.1)
[2018-12-21 05:57] LABS: Alanine Aminotransferase 15 Units/L (7-52); Albumin 3.4 g/dL (3.5-5.7); Albumin/Globulin Ratio 1.1 (1.1-2.2); Alkaline Phosphatase 96 Units/L (34-104); Aspartate Amino Transferase 28 Units/L (13-39); BUN/Creatinine Ratio 8 (6-26); Bilirubin,Total 0.9 mg/dL (0.3-1.0); Blood Urea Nitrogen 8 mg/dL (6-20); Calcium 9.1 mg/dL (8.6-10.3); Carbon Dioxide 29 mEq/L (23-29); Chloride 95 mEq/L (98-107); Chol/HDL Ratio 2.4 (0-4.9); Cholesterol 99 mg/dL (< 200); Globulin 3.2 g/dL (2.4-3.5); Glucose 108 mg/dL (70-105); HDL Cholesterol 42 mg/dL (40-59); LDL Cholesterol,Calculated 41 mg/dL (0-99); Magnesium 1.7 mg/dL (1.6-2.6); Osmolality,Calculated 271 (280-300); Potassium 3.9 mEq/L (3.5-5.1); Sodium 131 mEq/L (136-145); Total Protein 6.6 g/dL (6.4-8.9); Triglycerides 82 mg/dL (< 150); eGFR For African Americans > 60 (> 60); eGFR For Non-African Americans > 60 (> 60)
[2018-12-21] MEDS ORDERED: Perflutren Lipid Microsphere 1.3 ML in 0.9 % Sodium Chloride 8.7 ML IVP ONE (07:18)
[2018-12-21 08:42] LABS: Estimated Average Glucose 126 mg/dl
[2018-12-21] MEDS: Furosemide 40 MG/4 ML VIAL IVP SCH (10:06)
[2018-12-21] MEDS: Metoprolol XL (24 HR) Succ 25 MG TAB.ER.24H PO SCH (10:07)
[2018-12-21] MEDS: Nicotine 21 MG PATCH.TD24 TD SCH (10:07)
--- NOTE | 2018-12-21 10:53 | Cardiology Progress Note ---
Date of Encounter: 12/21/18 Time of Encounter: 09:00 Assessment and Plan (1) Non-STEMI (non-ST elevated myocardial infarction) Current Visit: Yes Status: Acute Per cardiology: -NSTEMI with trops 4.47, 2.81, 2.55. -Denies current chest pain, however admitted to chest pain Friday. -ECG with non-specific ST and T wave abnormalities noted. -TTE with LVEF 50-55%, does have apex, apical inferior, and apical septal wall hypokinetic. -Not on asa or heparin drip due to acute anemia, reports melena. Continue statin, BB. -Patient is not currently a candidate for LHC with acute anemia, pending GI work up. However, discussed potential LHC during this admission and patient refuses. Risks of no LHC explained to patient, who states understanding. -Will treat medically, no cardiac rehab consult at this time. -Cardiology will sign off, will arrange outpatient follow up. (2) GI bleed Current Visit: Yes Status: Acute Per cardiology: -Hemoglobin 7.5 on admission, worse than baseline. -Reports melena. -Known history of esophageal varices. -GI consult pending. -Management per primary and GI services. Qualifiers: GI bleed type/associated pathology: unspecified gastrointestinal hemorrhage type Qualified Code(s): K92.2 - Gastrointestinal hemorrhage, unspecified (3) CHF (congestive heart failure) Current Visit: Yes Status: Acute Per cardiology: -Acute CHF, reports NYHA class III symptoms. -TTE with LVEF 50-55%, SWMA noted as above. -TTE 07/2018 with LVEF 55-60%, mild concentric LVH, mild diastolic dysfunction, no segmental wall motion abnormalities noted. -X-ray with pulmonary vascular congestion. -On IV lasix, curently net negative ~5L. Euvolemic on exam. -Now off O2. -Now euvolemic, will stop IV diuresis and will start oral lasix. -Strict i/so, fluid restriction, daily weights. -CHF education reviewed with patient and family at length. Patient was encouraged to quit drinking ETOH. Qualifiers: Heart failure type: diastolic Heart failure chronicity: acute Qualified Code(s): I50.31 - Acute diastolic (congestive) heart failure Discussion w patient/family: The assessment and plan as outlined above was discussed with the patient and family who expressed understanding and agreement. All questions were answered. Thank you for involving us in the care of your patient. Please call with any questions. Discussed and reviewed with . Subjective Principal diagnosis: NSTEMI, CHF Interval history: Patient reports shortness of breath is improved. No longer requiring O2. Denies chest pain. Objective Vital Signs, Last 4 Hours Temp Pulse Resp BP Pulse Ox 12/21/18 10:33 98.6 F 12/21/18 08:00 100.8 F H 104 16 142/80 93 General: Conversant, No Apparent Distress HEENT: Atraumatic, Normocephaly, Mucus Membranes Moist Neck: No JVD, Normal carotid pulses Cardiac: Reg Rate and Rhythm, Normal S1 and S2, No Murmur Lungs: Other (Lung sounds diminished throughout. ) Neuro: Alert and responsive, No focal deficits noted Abdomen: Soft, Non-Tender Skin: No rashes noted on visualized skin Musculoskeletal: No Chest Wall Tenderness Extremities: No Clubbing, No Cyanosis, No Edema, Normal Pulses Results 12/21/18 05:07 12/21/18 05:07 Lab Results Impressions Echocardiogram Limited Views 12/21/18 06:26 Impressions: LVEF 50-55%. Mild segmental left ventricular systolic dysfunction. Normal right ventricular structure and function. Cardiology consult team notified. Left Ventricular Wall Motion: Rest Echo Findings The apex, apical inferior and apical septal [place] were hypokinetic. All other wall segments showed normal motion. Findings: Study Quality * Technically adequate exam. ECG Findings * Sinus tachycardia. Left Ventricle * LVEF 50-55%. * Normal LV chamber size, wall thickness. * Mild segmental left ventricular systolic dysfunction. Right Ventricle * Normal right ventricular structure and function. Left Atrium * Normal left atrial size. Right Atrium * Normal right atrial size. Tricuspid Valve * Estimated RA pressure is 8 mmHg. IVC * The IVC is not dilated. * < 50% respiratory change. Active Medications Hydrocodone Bitart/Acetaminophen ([place] 5-325 Mg) 1 tab PO Q6HR PRN PRN Reason: Pain Stop: 06/21/19 15:58 Last Admin: 12/21/18 05:20 Dose: 1 tab Documented by: Atorvastatin Calcium (Lipitor) 20 mg PO HS [facility]ATH[facility] Stop: 06/21/19 21:01 Last Admin: 12/20/18 21:27 Dose: 20 mg Documented by: Dextrose/Water (Dextrose 50% (Syg)) 25 ml IVP AD PRN PRN Reason: Hypoglycemia Stop: 06/21/19 06:39 Furosemide (Lasix) 40 mg IVP BID [facility] Stop: 06/21/19 09:01 Last Admin: 12/21/18 10:06 Dose: 40 mg Documented by: Glucagon (Glucagen) 1 mg IM ONCE PRN PRN Reason: Hypoglycemia Stop: 06/21/19 06:39 Glucose (Gluctose) 15 gm PO ONCE PRN PRN Reason: Hypoglycemia Stop: 06/21/19 06:39 Glucose (Gluctose) 30 gm PO ONCE PRN PRN Reason: Hypoglycemia Stop: 06/21/19 06:39 Dextrose (Dextrose 5%) 1,000 mls @ 100 mls/hr IVC .Q10H PRN PRN Reason: HYPOGLYCEMIA Stop: 06/21/19 06:39 Insulin Human Lispro (Humalog) 0 units SQ Q6HR [facility]; Protocol Stop: 06/21/19 12:01 Last Admin: 12/21/18 06:13 Dose: Not Given Documented by: Lorazepam (Ativan) 1 mg IVP Q1H PRN PRN Reason: Alcohol Withdrawal Stop: 06/21/19 06:27 Last Admin: 12/21/18 05:25 Dose: 1 mg Documented by: Metoprolol Succinate (Toprol Xl) 25 mg PO DAILY [facility] Stop: 06/21/19 10:21 Last Admin: 12/21/18 10:07 Dose: 25 mg Documented by: Morphine Sulfate (Morphine) 2 mg IVP Q3H PRN; Protocol PRN Reason: Chest Pain Stop: 06/21/19 06:40 Naloxone HCl (Narcan) 0.4 mg IVP Q2MPRN PRN PRN Reason: SEE COMMENTS Stop: 06/21/19 06:27 Nicotine (Nicoderm) 21 mg TD DAILY [facility]; Protocol Stop: 06/21/19 11:59 Last Admin: 12/21/18 10:07 Dose: 21 mg Documented by: Ondansetron HCl (Zofran) 4 mg IVP Q8HR PRN PRN Reason: Nausea And Vomiting Stop: 06/21/19 06:27 Pantoprazole Sodium (Protonix) 40 mg IVP Q12HR [facility] Stop: 06/21/19 13:17 Last Admin: 12/21/18 05:22 Dose: 40 mg Documented by: Laboratory Tests 12/21/18 12/21/18 05:07 05:07 Hgb 8.4 L Creatinine 0.95 - Imaging and Cardiology Chest Xray: report reviewed Echo: report reviewed - EKG Interpretation EKG results cardiology: other (Telemetry reviewed with average HR previous 12 hours noted to be 100, SR. PVCs, PACS noted.) Consult Discharge Plan - Plan Referrals: Sadi Xiong DO [Primary Care Provider] -
[2018-12-21] MEDS ORDERED: Lidocaine -MPF 2% 2 ML VIAL ONE (12:46)
[2018-12-21] MEDS ORDERED: *HR* Propofol 200 MG/20 ML VIAL IVP ONE (12:46)
--- NOTE | 2018-12-21 13:12 | Anesthesia Evaluation PreOp ---
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 alcohol abuse, recently decreased from 24 beers a day to 10-12.) Alcohol Use: heavy Drug use: none Medications and Allergies Folic Acid 1 mg PO DAILY 04/18/15 [History] Furosemide [Lasix] 40 mg PO BID 04/18/15 [History] GlipiZIDE XL (24 HR) [Glucotrol XL] 10 mg PO 0800 04/18/15 [History] Metoprolol [Lopressor] 25 mg PO BID 04/18/15 [History] Omeprazole [PriLOSEC] 40 mg PO DAILY 04/18/15 [History] Spironolactone [Aldactone] 100 mg PO TID #90 tablet 04/18/15 [Rx] TraMADol [Ultram] 100 mg PO TID PRN 04/18/15 [History] Docusate [Colace] 100 mg PO DAILY 06/23/15 [History] Tamsulosin [Flomax] 0.4 mg PO DAILY 06/23/15 [History] Thiamine Mononitrate [Vitamin B-1] 100 mg PO DAILY 06/23/15 [History] predniSONE [PredniSONE] 60 mg PO DAILY 5 Days tablet 10/14/15 [Rx] Nortriptyline [Pamelor] 25 mg PO TID PRN #21 capsule 12/08/18 [Rx] Allergy/AdvReac Type Severity Reaction Status Date / Time No Known Allergies Allergy Verified 12/08/18 20:09 - Meds/Allergy Pre-op Review Medications Reviewed: Yes Allergies Reviewed: Yes Beta Blockers on Current Med List: Yes (1000) Anesthesia Results - Labs 12/21/18 05:07 12/21/18 05:07 Was transfused 2 units RBCs over the weekend. - Imaging EKG: report reviewed (nonspecific ST-T wave changes, ECHO-EF 55%,) Anesthesia Exam Selected Entries 12/21/18 11:37 Temperature 98.7 F Pulse Rate 93 Respiratory Rate 16 Blood Pressure 150/77 Weight: 155 kg. BMI 47 NPO (# of Hours): over 8 hours - HEENT Pupil (Motor): Pupils equal Mallampati: I Teeth: Missing (multiple missing teeth, no upper teeth) Oral Opening: Greater than 3 - Cardiac Rhythm: Regular Murmur: None - Pulmonary Breath Sounds: bilateral Clear Anesthesia Assess/Plan ASA Score: 4 Level of consciousness: Cooperative Anesthetic Plan: MAC Monitoring Plan: Standard Monitors Recovery Plan: Other (Discussed MAC anesthesia, agreed to procee.)
--- NOTE | 2018-12-21 13:51 | Anesthesia Evaluation Post Op ---
Date of Encounter: 12/21/18 Time of Encounter: 13:50 - Vital Signs Vital Signs: 104/56, HR 108, RR 20, SpO2 100% - Lungs Lungs: Clear Ascult./Percussion - Airway Airway: Non-obstructed - Cardiovascular Regular Rate - Mental Status Mental Status: Alert & Oriented, Answers Appropriately - Pain Pain Scale: 0 Pain Scale used: Numeric (1 - 10) - Nausea Vomiting Nausea Vomiting: Not Present - Hydration Hydration: NPO, Has not voided - Discharge PostOp Status: Transfer Patient to floor
--- NOTE | 2018-12-21 14:45 | Gastroenterology Consult Note ---
<Azar Rockwell - Last Filed: 12/21/18 14:43> Date of Encounter: 12/21/18 Time of Encounter: 11:05 - Assessment and plan (1) Cirrhosis Status: Acute Assessment and plan: MELD-Na 20, Child-Jaquez class A, DF 11.2. AFP 5 on 06/02/2018. Check AFP and liver US to r/o HCC. Recommend 2-4 BMs daily, use Lactulose if needed. Lifestyle Changes: 1. Total abstinence from alcohol including social drinking. 2. No smoking. 3. Gradual loss of weight. 4. Drink at least 3 cups of coffee due to its antioxidant effects in the liver, it reduces risk of HCC and advance fibrosis. 5. If needed, use less than 2 g/day of Tylenol (in divided doses). 6. Vaccination for Hep A, B, Pneumococcus if not already received and yearly influenza vaccination by PCP. 7. Avoid NSAIDS as can cause kidney damage. 8. Avoid benzodiazepines and other sedatives such as anti-histamines, narcotics etc. as can cause encephalopathy or confusion. 9. Take a late carbohydrate meal supplement as it reduces glucose production from protein breakdown and thus improves nutrition. 10. In cirrhosis, statins are safe to use and also improve portal hypertension and decrease risk of HCC. 11. Screening: Hepatocellular cancer screening: US of liver and AFP every 6 months Qualifiers: Hepatic cirrhosis type: alcoholic cirrhosis Ascites presence: unspecified Qualified Code(s): K70.30 - Alcoholic cirrhosis of liver without ascites (2) GI bleed Status: Acute Assessment and plan: Hgb 7.9 on admission and Hgb 8.4 today. He has received one unit PRBC. Continue to monitor CBC and transfuse PRBC as needed. Iron 20 with ferritin 16. Plan for EGD today to r/o esophagitis, gastritis, duodenitis, PUD, MW tear, variceal bleed, or AVM. Keep NPO for EGD. Qualifiers: GI bleed type/associated pathology: unspecified gastrointestinal hemorrhage type Qualified Code(s): K92.2 - Gastrointestinal hemorrhage, unspecified (3) Non-STEMI (non-ST elevated myocardial infarction) Status: Acute Assessment and plan: Patient refused LHC. - Time Spent With Patient Total time spent is greater than 50% in coordination of care (as documented) at patient's floor/unit and/or counseling patient: GI History of Present Illness - Data of Consult Patient: known to practice within the last 3 years Consult date: 12/21/18 Requesting Physician: Luke Pruitt MD - Consult Narrative Reason for consult: GI bleed, cirrhosis History of present illness: Mr. Reynolds is a 58 year old male with PMHx of alcoholic cirrhosis, esophageal varices, COPD, DM, GERD, HTN who presented to the ED with 3-4 day history of shortness of breath, progressive orthopnea, edema, and fatigue. Workup in ER revealed patient to have a NSTEMI, anemia, and hyponatremia. Patient refuses [facility] at this time. Patient was scheduled to have EGD and colonoscopy by Dr. Aguila today as outpatient due to having melena. He denies any abdominal fullness, difficulty thinking clearly. He admits to drinking about 12 beers daily. Procedures: EGD 03/01/2015 Dr. Aguila: Grade 1 esophageal varices, portal hypert ensive gastropathy. Colonoscopy 03/01/2015 Dr. Aguila: Two tubular adenoma ranging from 6-7 mm. NSAIDs: None Anticoagulation: None Past Med Surg Social Fam HX - Past Medical History Medical history: arthritis, cirrhosis, COPD, diabetes, GERD, hypertension Additional medical history: alcoholic cirrhosis Psychiatric history: depression - Past Surgical History Surgical History: tonsillectomy Additional surgical history: tonsillectomy. EGD. colonoscopy - Social History Smoking Status: Current every day smoker Packs per day: 1 Smokeless Tobacco Status: No Alcohol use: heavy Drug use: none - Family History Mother Adopted: No Family Member Ethnicity: Non- Living Status: Hx Family Endocrine Disorder: Yes (diabetes) - Gastrointestinal Gastrointestinal: Present: as per HPI - Constitutional Constitutional: as per HPI - EENT Eyes: as per HPI Ears: Present: as per HPI Nose, mouth and throat: Present: as per HPI - Cardiovascular Cardiovascular ROS: Present: as per HPI - Respiratory Respiratory IM: Present: as per HPI - Genitourinary Genitourinary: Absent: change in color, Urinary frequency - Neurological ROS Neurological GI: Present: as per HPI - Hematologic/Lymphatic Hematologic/Lymphatic pediatric: Present: as per HPI - Musculoskeletal Musculoskeletal ROS GI: Present: as per HPI - Integumentary Integumentary GI: Present: as per HPI - Psychiatric ROS Psychiatric GI: Present: as per HPI - Endocrine Endocrine IM: Present: as per HPI - Constitutional Vitals: Temp Pulse Resp BP Pulse Ox 98.7 F 96 16 153/74 98 12/21/18 14:08 12/21/18 14:08 12/21/18 14:08 12/21/18 14:08 12/21/18 14:08 General appearance: Present: cooperative, A&O X 3, no acute distress, answers questions appropriately - Head Head exam: Present: atraumatic, normocephalic - Eye Eye exam: Present: normal appearance, sclera anicteric - ENT ENT exam: Present: mucous membranes dry - Neck Neck exam general surgery: Present: normal inspection, trachea midline - Respiratory Respiratory exam: Present: decreased breath sounds, CTAB. Absent: rales, rhonchi - Cardiovascular Cardiovascular exam: Present: RRR, +S1, +S2 - GI/Abdominal GI/Abdominal exam: Present: soft, no peritoneal signs. Absent: distended, firm, guarding, tenderness Additional comments: obese - Rectal Rectal exam: Present: deferred - Extremities Exam Extremities exam: Present: warm - Neurological Exam Neurological exam: Present: no focal deficits - Psychiatric Psychiatric exam: Present: normal affect, normal mood - Skin Skin exam: Present: dry, intact, normal color, warm Results - Labs CBC & Chem 7: 12/21/18 05:07 12/21/18 05:07 Labs: Last Result 12/21/18 05:07 Calcium 9.1 Triglycerides 82 Entire Visit 12/21/18 12/21/18 05:07 05:07 Hgb 8.4 L Hct 26.7 L Total Bilirubin 0.9 AST 28 ALT 15 - ABG ABG results: PT/INR, D-dimer PT 12.8 Seconds (9.4-12.1) H 12/20/18 07:29 - Impressions Impressions Echocardiogram Limited Views 12/21/18 06:26 Impressions: LVEF 50-55%. Mild segmental left ventricular systolic dysfunction. Normal right ventricular structure and function. Cardiology consult team notified. Left Ventricular Wall Motion: Rest Echo Findings The apex, apical inferior and apical septal york were hypokinetic. All other wall segments showed normal motion. Findings: Study Quality * Technically adequate exam. ECG Findings * Sinus tachycardia. Left Ventricle * LVEF 50-55%. * Normal LV chamber size, wall thickness. * Mild segmental left ventricular systolic dysfunction. Right Ventricle * Normal right ventricular structure and function. Left Atrium * Normal left atrial size. Right Atrium * Normal right atrial size. Tricuspid Valve * Estimated RA pressure is 8 mmHg. IVC * The IVC is not dilated. * < 50% respiratory change. Consult Discharge Plan - Plan Referrals: Sadi Xiong DO [Primary Care Provider] - Prescriptions: Iron Polysaccharide Complex [Ferric X-150] 150 mg PO BID #60 capsule HYDROcodone/Acet 5/325 mg [[place] 5-325 mg] 1 tab PO Q6HR PRN 7 Days #28 tablet PRN Reason: Pain <Mike Sandra - Last Filed: 01/04/19 05:55> Date of Encounter: 12/21/18 - Time Spent With Patient Total time spent is greater than 50% in coordination of care (as documented) at patient's floor/unit and/or counseling patient: GI History of Present Illness - Data of Consult Requesting Physician: Mary Wagner - Consult Narrative History of present illness: Mr. Reynolds is a 58 year old male with history of alcoholic cirrhosis, esophageal varices, COPD, DM, GERD, HTN who presented to the ED with 3-4 day history of shortness of breath, progressive orthopnea, edema, and fatigue and workup in the ED suggests NSTEMI. Plan EGD to check for etiology of severe anemia. Differential diagnosis wide as multifactorial etiology of DARBY I have personally performed a face to face evaluation on this patient. I have reviewed and agree with the care plan. History and Exam by me shows: - Constitutional Vitals: Temp Pulse Resp BP Pulse Ox 98.1 F 83 18 148/74 98 12/28/18 07:05 12/28/18 07:05 12/28/18 07:05 12/28/18 07:05 12/28/18 07:05 Results - Labs CBC & Chem 7: 12/28/18 04:35 12/28/18 04:35 - ABG ABG results: ABG ABG pH 7.48 pH Units (7.32-7.45) H 12/23/18 04:41 ABG pCO2 42 mmHg (35-45) 12/23/18 04:41 ABG pO2 62 mmHg (85-104) L 12/23/18 04:41 ABG O2 Saturation 93 % (95-98) L 12/23/18 04:41 PT/INR, D-dimer PT 12.8 Seconds (9.4-12.1) H 12/20/18 07:29
--- NOTE | 2018-12-21 15:40 | Internal Med Progress Note ---
Hospitalist Progress Note - Encounter Date of Encounter: 12/21/18 Time of Encounter: 15:38 - Subjective Interval History: I have seen and evaluated the patient at bedside. Patient denies chest pain, and reports improvement on his shortness of breath. reports chronic back pain. denies nausea or vomiting - Exam Vitals: Temp Pulse Resp BP Pulse Ox 98.6 F 95 16 165/83 99 12/21/18 15:14 12/21/18 15:14 12/21/18 15:14 12/21/18 15:14 12/21/18 15:14 Exam: Vitals: Reviewed General: Alert and orientedx x4. In mild distress due to chronic back pain Cardiovascular: RRR, normal S1 & S2, no rubs, murmurs or gallops. Lungs: CTA b/l, no wheezes or crackles. Abdomen: Soft, non-tender, no rigidity. Extremities: 2+ edema in the lower extr b/l Neurological: Normal cognition and motor skills. Rest of the physical exam is non contributory - Assessment and Plan (1) Acute decompensated heart failure Current Visit: Yes Status: Acute Assessment and Plan: Respiratory status continues to improve. patient with a total negative balance of 6.1 litters. Plan: To continue IV diruresis with furosemide 40mg/IV BI strict intake and output water restriction to 1.5 litters a day. daily weight low dose aces add on metoprolol (2) Non-STEMI (non-ST elevated myocardial infarction) Current Visit: Yes Status: Acute Assessment and Plan: patient refused LHC. will start aspirin following colonoscopy. continue bb. (3) GI bleed Current Visit: Yes Status: Acute Assessment and Plan: Patient reported passing dark stool about 3 days ago. patient with Hx of esophageal varices. s/P EGD: grade II esophageal varices. Portal hypertensive gastropathy. Plan - scheduled for colonoscopy tomorrow - change PPI to once a day - clear liquid diet - NPO at midnight - continue anti-emetics (4) Alcoholism Current Visit: Yes Status: Chronic Assessment and Plan: Not withdrawing. (5) Esophageal varices Current Visit: Yes Status: Acute (6) Cirrhosis Current Visit: No Status: Chronic (7) DM (diabetes mellitus), type 2 Current Visit: No Status: Chronic Assessment and Plan: on insulin lispro low dose sliding scale (8) Anemia Current Visit: Yes Status: Chronic Assessment and Plan: iron deficiency and acute blood lost anemia. s/p 1 PRBCs transfused. ferrous sulfate added DVT Prophylaxis: Mechanical dvt prophylaxis. no chemical dvt prophylaxis due to GI bleed - Summary of Assessment and Plan Summary of Assessment and Plan: patient to remain in the hospital scheduled for EGD tomorrow - Time Spent with Patient Total time spent is greater than 50% in coordination of care (as documented) at patient's floor/unit and/or counseling patient: Greater than 35 minutes (45) Plan of Care Discussed with: patient (and the nurse.) Internal Medicine: Result - Labs CBC & Chem 7: 12/21/18 05:07 12/21/18 05:07 Labs: Short CBC 12/20/18 12/21/18 Range/Units 18:42 05:07 WBC 8.6 (4.3-11.1) K/mcL Hgb 8.6 L 8.4 L (12.9-16.9) g/dL Hct 27.2 L 26.7 L (37.5-50.1) % Plt Count 212 (140-400) K/mcL Neutrophils # 6.6 (1.6-8.9) K/mcL BMP 12/21/18 05:07 Sodium 131 L Potassium 3.9 Chloride 95 L Carbon Dioxide 29 BUN 8 Creatinine 0.95 Glucose 108 H Calcium 9.1 Liver Function 12/21/18 Range/Units 05:07 Total Bilirubin 0.9 (0.3-1.0) mg/dL AST 28 (13-39) Units/L ALT 15 (7-52) Units/L Alkaline Phosphatase 96 (34-104) Units/L Albumin 3.4 L (3.5-5.7) g/dL - ABG Interpretation ABG results: PT/INR, D-dimer PT 12.8 Seconds (9.4-12.1) H 12/20/18 07:29 - Impressions Impressions Echocardiogram Limited Views 12/21/18 06:26 Impressions: LVEF 50-55%. Mild segmental left ventricular systolic dysfunction. Normal right ventricular structure and function. Cardiology consult team notified. Left Ventricular Wall Motion: Rest Echo Findings The apex, apical inferior and apical septal york were hypokinetic. All other wall segments showed normal motion. Findings: Study Quality * Technically adequate exam. ECG Findings * Sinus tachycardia. Left Ventricle * LVEF 50-55%. * Normal LV chamber size, wall thickness. * Mild segmental left ventricular systolic dysfunction. Right Ventricle * Normal right ventricular structure and function. Left Atrium * Normal left atrial size. Right Atrium * Normal right atrial size. Tricuspid Valve * Estimated RA pressure is 8 mmHg. IVC * The IVC is not dilated. * < 50% respiratory change. Consult Discharge Plan - Plan Referrals: Sadi Xiong DO [Primary Care Provider] - (3) GI bleed Qualifiers: GI bleed type/associated pathology: unspecified gastrointestinal hemorrhage type Qualified Code(s): K92.2 - Gastrointestinal hemorrhage, unspecified (6) Cirrhosis Qualifiers: Hepatic cirrhosis type: alcoholic cirrhosis Ascites presence: unspecified Qualified Code(s): K70.30 - Alcoholic cirrhosis of liver without ascites (7) DM (diabetes mellitus), type 2 Qualifiers: Diabetes mellitus complication status: without complication Qualified Code(s): E11.9 - Type 2 diabetes mellitus without complications (8) Anemia Qualifiers: Anemia type: unspecified type Qualified Code(s): D64.9 - Anemia, unspecified
--- NOTE | 2018-12-21 16:01 | Electrocardiograph Report ---
[place] [id number] Test Date: 2018-12-20 Pat Name: Damir Reynolds Department: EXAM15 Room: 2NE35 Gender: M [employer] General Manager: : 1960 Requested By: [id number] Order Number: [id number] Reading MD: Osbaldo Howe Measurements Intervals Blue Rate: 89 P: 66 WV: 252 QRS: 79 QRSD: 92 T: 100 QT: 360 QTc: 438 Interpretive Statements Sinus rhythm Prolonged WV interval Low voltage, precordial leads Consider anterior infarct Borderline repolarization abnormality Electronically Signed On 12-21-2018 16:00:03 EDT by Osbaldo Howe
[2018-12-21] MEDS: Furosemide 40 MG TABLET PO SCH (16:06)
--- NOTE | 2018-12-21 16:19 | Electrocardiograph Report ---
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
[2018-12-21] MEDS ORDERED: SODIUM CHLORIDE/NAHCO3/KCL/PEG 4,000 ML SOLN.RECON PO ONE (17:00)
--- NOTE | 2018-12-21 20:55 | Anesthesia Evaluation PreOp ---
Date of Encounter: 12/21/18 Time of Encounter: 20:53 - Past History Planned Operation: Colonoscopy Cardiac History: [place] (Admitted through ER with non-STEMI on 12/20), Other (A dmitted through ER with non-STEMI on 12/20, dyspnea and hypnatremia.) Pulmonary History: Former smoker, ANGELA Dx Other Medical History: Hepatic (cirrhosis, varices), Diabetes Type II, GERD, Other (Hyponatremia, MO BMI 47.7) Anesthesia History: No Prior Anesthetic Complications, Past Anesthesia (EGD) Alcohol Use: heavy Drug use: none Medications and Allergies Metoprolol [Lopressor] 25 mg PO BID 04/18/15 [History] Docusate [Colace] 100 mg PO BID PRN 06/23/15 [History] Tamsulosin [Flomax] 0.4 mg PO DAILY 06/23/15 [History] Thiamine Mononitrate [Vitamin B-1] 100 mg PO DAILY 06/23/15 [History] Albuterol Sulfate [Ventolin Hfa] 2 puff IH Q6H PRN 12/21/18 [History] Aspirin 81 mg PO DAILY 12/21/18 [History] Cetirizine HCl [24Hour Allergy] 10 mg PO DAILY PRN 12/21/18 [History] Empagliflozin [Jardiance] 10 mg PO DAILY 12/21/18 [History] Ferrous Sulfate 325 mg PO DAILY 12/21/18 [History] Fluticasone Propionate Nasal [Flonase] 2 spray NS DAILY PRN 12/21/18 [History] Folic Acid 1 mg PO DAILY 12/21/18 [History] Furosemide [Lasix] 60 mg PO BID 12/21/18 [History] GlipiZIDE XL (24 HR) [Glucotrol XL] 10 mg PO BID 12/21/18 [History] Levomefolate/B6/B12/Algal Oil [Metanx Capsule] 1 cap PO BID 12/21/18 [History] Lisinopril [Zestril] 10 mg PO DAILY 12/21/18 [History] Multivit-Min/FA/Lycopen/Lutein [Centrum Silver Men Tablet] 1 tab PO DAILY 12/21/18 [History] Omeprazole [PriLOSEC] 40 mg PO DAILY 12/21/18 [History] Tramadol HCl [Ultram] 100 mg PO QID PRN 12/21/18 [History] Umeclidinium [place] [Incruse Ellipta] 1 puff IH HS 12/21/18 [History] metFORMIN [Glucophage] 500 mg PO BID 12/21/18 [History] Allergy/AdvReac Type Severity Reaction Status Date / Time No Known Allergies Allergy Verified 12/21/18 14:45 - Meds/Allergy Pre-op Review Medications Reviewed: Yes Allergies Reviewed: Yes Beta Blockers on Current Med List: Yes Anesthesia Results - Labs 12/21/18 05:07 12/21/18 05:07 - Imaging EKG: report reviewed (SINUS RHYTHM WITH FIRST DEGREE AV BLOCK NONSPECIFIC ST-T CHANGES Electronically Signed On 12-21-2018 16:17:19 EDT by Osbaldo Howe) Additional studies: Limited Echo with Imaging Enhancement Agent Name: Damir Reynolds Date of Study: 12/21/2018 EV/EV limited echo w enhance Impressions: LVEF 50-55%. Mild segmental left ventricular systolic dysfunction. Normal right ventricular structure and function. Cardiology consult team notified Anesthesia Exam Vital Signs/O2 Sat, Most Current Temp Pulse Resp BP Pulse Ox 98.9 F 97 17 126/96 95 12/21/18 20:55 12/21/18 20:55 12/21/18 20:55 12/21/18 20:55 12/21/18 20:55 - HEENT Pupil (Motor): Pupils equal, EOMI Mallampati: I (Pupils equal Mallampati: I Teeth: Missing (multiple missing teeth, no upper teeth) Oral Opening: Greater than 3 - Cardiac Rhythm: Regular Murmur: None - Pulmonary Breath Sounds: bilateral Clear Anesthesia Assess/Plan ASA Score: 4) Teeth: Missing Denture Type: Upper: Complete - BULB TESTER LOC: Oriented BULB TESTER Motor: Normal RUE, Normal LUE, Normal RLE, Normal LLE, Normal Face BULB TESTER Sensory: Normal: RUE, LUE, RLE, LLE, Face - Cardiac Rhythm: Regular Murmur: None JVD: No Carotid Bruit: No - Pulmonary Breath Sounds: bilateral Clear Respiratory Effort: Symmetrical Anesthesia Assess/Plan ASA Score: 4
[2018-12-22] MEDS: Insulin LISPRO 300 UNITS/3 ML VIAL SQ SCH ×5 (00:58→21:05)
[2018-12-22] MEDS: Pantoprazole 40 MG VIAL IVP SCH (05:59)
[2018-12-22] MEDS ORDERED: Fluticasone Propionate Nasal 50 MCG/SPRAY BOTTLE NS PRN (09:32)
[2018-12-22] MEDS ORDERED: Loratadine 10 MG TABLET PO PRN (09:32)
[2018-12-22] MEDS: Furosemide 40 MG TABLET PO SCH ×2 (10:19→16:35)
[2018-12-22] MEDS: Metoprolol XL (24 HR) Succ 25 MG TAB.ER.24H PO SCH (10:19)
[2018-12-22] MEDS: Nicotine 21 MG PATCH.TD24 TD SCH (10:19)
[2018-12-22] MEDS: *HR* HYDROcodone/Acet 5/325 mg TABLET PO PRN ×2 (10:20→16:34)
[2018-12-22] MEDS ORDERED: Lidocaine -MPF 2% 2 ML VIAL ONE (14:06)
[2018-12-22 14:27] LABS: BUN/Creatinine Ratio 7 (6-26); Blood Urea Nitrogen 5 mg/dL (6-20); Calcium 8.8 mg/dL (8.6-10.3); Carbon Dioxide 31 mEq/L (23-29); Chloride 95 mEq/L (98-107); Glucose 135 mg/dL (70-105); Magnesium 1.6 mg/dL (1.6-2.6); Osmolality,Calculated 273 (280-300); Potassium 3.8 mEq/L (3.5-5.1); Sodium 132 mEq/L (136-145); eGFR For African Americans > 60 (> 60); eGFR For Non-African Americans > 60 (> 60)
[2018-12-22 14:29] LABS: Hematocrit 29.4 % (37.5-50.1); Mean Corpuscular HGB Conc 30.6 g/dL (31.6-35.5); Mean Corpuscular Volume 91.3 fL (83.0-100.0); Mean Platelet Volume 10.3 fL (9.4-12.4); Platelet Count 195 K/mcL (140-400); Red Blood Count 3.22 M/mcL (4.19-5.50); White Blood Count 7.2 K/mcL (4.3-11.1)
[2018-12-22] MEDS ORDERED: *HR* PHENYLEPHRINE 1,000 MCG/10 ML SYRINGE IVP ONE (14:29)
--- NOTE | 2018-12-22 15:57 | Anesthesia Evaluation Post Op ---
Date of Encounter: 12/22/18 Time of Encounter: 15:50 - Vital Signs Vital Signs: Vital Signs Time 1550 BP 80/46 Pulse 100 Resp 20 O2 Sat 100 - Lungs Lungs: Clear Ascult./Percussion - Airway Airway: Non-obstructed - Cardiovascular Regular Rate - Mental Status Mental Status: Alert & Oriented, Answers Appropriately - Pain Pain Scale: 0 Pain Scale used: Numeric (1 - 10) - Nausea Vomiting Nausea Vomiting: Not Present - Hydration Hydration: NPO, Has not voided - Discharge PostOp Status: Transfer Patient to floor
--- NOTE | 2018-12-22 21:08 | Internal Med Progress Note ---
Hospitalist Progress Note - Encounter Date of Encounter: 12/22/18 Time of Encounter: 18:25 - Subjective Interval History: Mr Reynolds is now agreeable to left heart catheter. He attributes his initial refusal to not being fully educated. He does admit to being anxious and would like to be sedated before the procedure GEN: Denies fever, chills or malaise HEENT: Denies headache blurriness, or dysphagia RESP: Denies SOB or cough CV: Denies chest pain or palpitations GI: Denies Nausea, vomiting, diarrhea or constipation Reviewed current in hospital medications with modifications see orders Reviewed Routine labs - Exam Vitals: Temp Pulse Resp BP Pulse Ox 98.6 F 102 18 115/72 93 12/22/18 20:47 12/22/18 20:47 12/22/18 20:47 12/22/18 20:47 12/22/18 20:47 Exam: GEN: Obese male NAD, A&O x 3, Pleasant and conversant by bedside SKIN: [place] warm acyanotic not jaundice HEART: RRR, no murmurs LUNGS: CTA no wheeze or crackles, overall non labored ABDOMEN; Soft, non tender or distended, BS x 4 normactive EXT: No LE edema, Pedal pulses 1+, radial pulses 2+ PSYCH: Mood and affect is appropriate - Assessment and Plan (1) Non-STEMI (non-ST elevated myocardial infarction) Current Visit: Yes Status: Acute Assessment and Plan: patient initially refused LHC. He is now agreeable to left heart cath. Cardiology is following (2) DM (diabetes mellitus), type 2 Current Visit: No Status: Chronic Assessment and Plan: on insulin lispro low dose sliding scale, A1c was 6 (3) Acute decompensated heart failure Current Visit: Yes Status: Acute Assessment and Plan: His coronary artery disease likely playing a factor. Respiratory status continues to improve. patient with a total negative balance of 13.2 litters. Plan: To continue IV diruresis with furosemide 40mg/IV BI strict intake and output water restriction to 1.5 litters a day. daily weight low dose aces add on metoprolol (4) GI bleed Current Visit: Yes Status: Acute Assessment and Plan: Status post colonoscopy which revealed colonic polyp in the sigmoid colon 20 mm nonbleeding internal hemorrhoids and diverticulosis likely source of bleed. Hemoglobin stable at 9 would also initiate anemia work up. Patient reported passing dark stool about 3 days ago. patient with Hx of esophageal varices. s/P EGD: grade II esophageal varices. Portal hypertensive gastropathy. (5) Alcoholism Current Visit: Yes Status: Chronic Assessment and Plan: Not withdrawing. Continue to encourage abstinence place on CIWA (6) Esophageal varices Current Visit: Yes Status: Acute Assessment and Plan: Status post EGD on Toprol-XL for now (7) Anemia Current Visit: Yes Status: Chronic Assessment and Plan: Work up initiated DVT Prophylaxis: SCDs - Time Spent with Patient Total time spent is greater than 50% in coordination of care (as documented) at patient's floor/unit and/or counseling patient: Internal Medicine: Result - Labs CBC & Chem 7: 12/22/18 13:58 12/22/18 13:58 Labs: Short CBC 12/22/18 Range/Units 13:58 WBC 7.2 (4.3-11.1) K/mcL Hgb 9.0 L (12.9-16.9) g/dL Hct 29.4 L (37.5-50.1) % Plt Count 195 (140-400) K/mcL BMP 12/22/18 13:58 Sodium 132 L Potassium 3.8 Chloride 95 L Carbon Dioxide 31 H BUN 5 L Creatinine 0.73 Glucose 135 H Calcium 8.8 - ABG Interpretation ABG results: PT/INR, D-dimer PT 12.8 Seconds (9.4-12.1) H 12/20/18 07:29 - VTE Documentation of Mechanical Device: Graduated compression elastic hosiery Consult Discharge Plan - Plan Referrals: Sadi Xiong DO [Primary Care Provider] - (2) DM (diabetes mellitus), type 2 Qualifiers: Diabetes mellitus complication status: without complication Qualified Code(s): E11.9 - Type 2 diabetes mellitus without complications (4) GI bleed Qualifiers: GI bleed type/associated pathology: unspecified gastrointestinal hemorrhage type Qualified Code(s): K92.2 - Gastrointestinal hemorrhage, unspecified (7) Anemia Qualifiers: Anemia type: unspecified type Qualified Code(s): D64.9 - Anemia, unspecified
[2018-12-22] MEDS ORDERED: *HR* LORazepam 1 MG TABLET PO SCH (21:15)
[2018-12-23 04:49] LABS: ABG Base Excess 7 mEq/L (-2 to 3); ABG HCO3 32 mEq/L (21-27); ABG Oxygen Saturation 93 % (95-98); ABG PCO2 42 mmHg (35-45); ABG PH 7.48 pH Units (7.32-7.45); ABG PO2 62 mmHg (85-104); ABG TCO2 33 mEq/L (20-26)
[2018-12-23] MEDS: Pantoprazole 40 MG VIAL IVP SCH (04:58)
[2018-12-23 06:26] LABS: Hematocrit 27.6 % (37.5-50.1); Hemoglobin 8.5 g/dL (12.9-16.9); Mean Corpuscular HGB Conc 30.8 g/dL (31.6-35.5); Mean Corpuscular Hemoglobin 28.4 pg (28.0-33.3); Mean Corpuscular Volume 92.3 fL (83.0-100.0); Platelet Count 190 K/mcL (140-400); Red Blood Count 2.99 M/mcL (4.19-5.50); Red Cell Distribution Width 17.5 % (11.5-14.5); White Blood Count 7.3 K/mcL (4.3-11.1)
[2018-12-23 06:44] LABS: BUN/Creatinine Ratio 6 (6-26); Blood Urea Nitrogen 6 mg/dL (6-20); Calcium 8.9 mg/dL (8.6-10.3); Carbon Dioxide 31 mEq/L (23-29); Chloride 95 mEq/L (98-107); Glucose 145 mg/dL (70-105); Osmolality,Calculated 280 (280-300); Potassium 3.7 mEq/L (3.5-5.1); Sodium 135 mEq/L (136-145); eGFR For African Americans > 60 (> 60); eGFR For Non-African Americans > 60 (> 60)
[2018-12-23 06:45] LABS: % Iron Saturation 7 % (20-55); Iron 23 mcg/dL (65-175); Transferrin 250 mg/dL (203-362)
[2018-12-23 07:02] LABS: Ferritin 31 ng/mL (20-250)
[2018-12-23 07:12] LABS: Folate > 22.3 ng/mL (3.0-16.0); Vitamin B12 > 1500 pg/mL (250-1100)
[2018-12-23] MEDS ORDERED: *HR* LORazepam 2 MG/ML VIAL IVP PRN ×3 (08:19)
[2018-12-23] MEDS: Insulin LISPRO 300 UNITS/3 ML VIAL SQ SCH ×4 (08:29→20:54)
[2018-12-23] MEDS: Folic Acid 1 MG TABLET PO SCH (08:33)
[2018-12-23] MEDS: Metoprolol XL (24 HR) Succ 25 MG TAB.ER.24H PO SCH (08:33)
[2018-12-23] MEDS: Thiamine (B-1) 100 MG TABLET PO SCH (08:34)
[2018-12-23] MEDS: Furosemide 40 MG TABLET PO SCH ×2 (08:34→16:02)
[2018-12-23] MEDS ORDERED: Folic Acid 1 MG TABLET PO SCH (09:00)
[2018-12-23] MEDS: Nicotine 21 MG PATCH.TD24 TD SCH (10:56)
[2018-12-23] MEDS ORDERED: Ipratropium/Albuterol Neb 3 ML IH PRN (11:05)
--- NOTE | 2018-12-23 11:19 | Discharge Summary ---
Orders not resulted at time of discharge: Pending orders 12/22/18 09:53 AFP Tumor Marker Non- AM 0400 Date of Encounter: 12/23/18 - Discharge Diagnosis (1) Non-STEMI (non-ST elevated myocardial infarction) Status: Acute (2) DM (diabetes mellitus), type 2 Status: Chronic Qualifiers: Diabetes mellitus complication status: without complication Qualified Code(s): E11.9 - Type 2 diabetes mellitus without complications (3) Acute decompensated heart failure Status: Acute (4) GI bleed Status: Acute Qualifiers: GI bleed type/associated pathology: unspecified gastrointestinal hemorrhage type Qualified Code(s): K92.2 - Gastrointestinal hemorrhage, unspecified (5) Alcoholism Status: Chronic (6) Esophageal varices Status: Acute (7) Anemia Status: Chronic Qualifiers: Anemia type: unspecified type Qualified Code(s): D64.9 - Anemia, unspecified (8) COPD (chronic obstructive pulmonary disease) Status: Acute Hospital course: Mr. Reynolds is a 58 year old male - Time Spent with Patient Total time spent providing and/or coordinating discharge services: - Discharge Medications Prescriptions: No Action Metoprolol [Lopressor] 25 mg PO BID Docusate [Colace] 100 mg PO BID PRN PRN Reason: Constipation Tamsulosin [Flomax] 0.4 mg PO DAILY Thiamine Mononitrate [Vitamin B-1] 100 mg PO DAILY Albuterol Sulfate [Ventolin Hfa] 2 puff IH Q6H PRN PRN Reason: Shortness Of Breath Aspirin 81 mg PO DAILY Cetirizine HCl [24Hour Allergy] 10 mg PO DAILY PRN PRN Reason: Allergy Symptoms Empagliflozin [Jardiance] 10 mg PO DAILY Ferrous Sulfate 325 mg PO DAILY Fluticasone Propionate Nasal [Flonase] 2 spray NS DAILY PRN PRN Reason: Allergy Symptoms Folic Acid 1 mg PO DAILY Furosemide [Lasix] 60 mg PO BID GlipiZIDE XL (24 HR) [Glucotrol XL] 10 mg PO BID Levomefolate/B6/B12/Algal Oil [Metanx Capsule] 1 cap PO BID Lisinopril [Zestril] 10 mg PO DAILY metFORMIN [Glucophage] 500 mg PO BID Omeprazole [PriLOSEC] 40 mg PO DAILY Tramadol HCl [Ultram] 100 mg PO QID PRN PRN Reason: Pain Umeclidinium Reading [Incruse Ellipta] 1 puff IH HS Multivit-Min/FA/Lycopen/Lutein [Centrum Silver Men Tablet] 1 tab PO DAILY Home Medications: Metoprolol [Lopressor] 25 mg PO BID 04/18/15 [History] Docusate [Colace] 100 mg PO BID PRN 06/23/15 [History] Tamsulosin [Flomax] 0.4 mg PO DAILY 06/23/15 [History] Thiamine Mononitrate [Vitamin B-1] 100 mg PO DAILY 06/23/15 [History] Albuterol Sulfate [Ventolin Hfa] 2 puff IH Q6H PRN 12/21/18 [History] Aspirin 81 mg PO DAILY 12/21/18 [History] Cetirizine HCl [24Hour Allergy] 10 mg PO DAILY PRN 12/21/18 [History] Empagliflozin [Jardiance] 10 mg PO DAILY 12/21/18 [History] Ferrous Sulfate 325 mg PO DAILY 12/21/18 [History] Fluticasone Propionate Nasal [Flonase] 2 spray NS DAILY PRN 12/21/18 [History] Folic Acid 1 mg PO DAILY 12/21/18 [History] Furosemide [Lasix] 60 mg PO BID 12/21/18 [History] GlipiZIDE XL (24 HR) [Glucotrol XL] 10 mg PO BID 12/21/18 [History] Levomefolate/B6/B12/Algal Oil [Metanx Capsule] 1 cap PO BID 12/21/18 [History] Lisinopril [Zestril] 10 mg PO DAILY 12/21/18 [History] Multivit-Min/FA/Lycopen/Lutein [Centrum Silver Men Tablet] 1 tab PO DAILY 12/21/18 [History] Omeprazole [PriLOSEC] 40 mg PO DAILY 12/21/18 [History] Tramadol HCl [Ultram] 100 mg PO QID PRN 12/21/18 [History] Umeclidinium Reading [Incruse Ellipta] 1 puff IH HS 12/21/18 [History] metFORMIN [Glucophage] 500 mg PO BID 12/21/18 [History] Allergies/Adverse Reactions: Allergy/AdvReac Type Severity Reaction Status Date / Time No Known Allergies Allergy Verified 12/21/18 14:45 Date of admission: 12/20/18 06:26 Primary care physician: Sadi Xiong DO Consults: 12/20/18 05:16 Consult to Cardiology [CONS] Stat Comment: Consulting Provider: Cardiology Arlet Reason for Consult: NM Call Completed: Yes 12/20/18 06:54 Consult to Gastroenterology [CONS] Routine Consulting Provider: Gastroenterology Arlet Reason for Consult: GI bleed; Cirrohsis Call Completed: No 12/22/18 15:16 Consult to Nurse Navigator [CONS] Routine Comment: CHF, NSTEMI 12/23/18 08:31 Consult to Cardiology [CONS] Routine Comment: Pt is NPO Consulting Provider: Cardiology Arlet Reason for Consult: Patient is agreeable to heart cath Call Completed: Yes - Constitutional Vitals: Temp Pulse Resp BP Pulse Ox 97.4 F L 88 28 152/72 100 12/23/18 07:42 12/23/18 07:42 12/23/18 04:47 12/23/18 07:42 12/23/18 07:42 General appearance: Present: cooperative, disheveled, mild distress, A&O X 3, pleasant, answers questions appropriately - Patient Status Condition: Good - Discharge Instructions Follow Up With: Sadi Xiong DO [Primary Care Provider] - - VTE Documentation of Mechanical Device: Graduated compression elastic hosiery
--- NOTE | 2018-12-23 12:04 | Cardiology Progress Note ---
Date of Encounter: 12/23/18 Time of Encounter: 09:45 Assessment and Plan (1) Non-STEMI (non-ST elevated myocardial infarction) Current Visit: Yes Status: Acute Per cardiology: -NSTEMI with trops 4.47, 2.81, 2.55. -Denies current chest pain, however admitted to chest pain Friday. -ECG with non-specific ST and T wave abnormalities noted. -TTE with LVEF 50-55%, does have apex, apical inferior, and apical septal wall hypokinetic. -Not on asa or heparin drip due to acute anemia, reports melena. Continue statin, BB. -Patient is not currently a candidate for LHC. Patient did undergo GI evaluation and esopahgeal varices noted, however non-bleeding. Lesion noted in colonoscopy and cautery was performed. Patient has been deemed high risk for coronary evaluation due to high risk of bleeding. I discussed at length with patient and family regarding risk and benefits of LHC, and patient is in agreement with no LHC. Patient was reviewed at length with also. -Will treat medically, no cardiac rehab consult at this time. -Cardiology will sign off, will arrange outpatient follow up. (2) GI bleed Current Visit: Yes Status: Acute Per cardiology: -Management per primary and GI services. Qualifiers: GI bleed type/associated pathology: unspecified gastrointestinal hemorrhage type Qualified Code(s): K92.2 - Gastrointestinal hemorrhage, unspecified (3) CHF (congestive heart failure) Current Visit: Yes Status: Acute Per cardiology: -Acute CHF, reports NYHA class III symptoms. -TTE with LVEF 50-55%, SWMA noted as above. -TTE 07/2018 with LVEF 55-60%, mild concentric LVH, mild diastolic dysfunction, no segmental wall motion abnormalities noted. -X-ray with pulmonary vascular congestion. -On oral lasix, curently net negative ~13L. Euvolemic on exam. -Currently on Bipap. -Continue lasix. -Strict i/so, fluid restriction, daily weights. -CHF education reviewed with patient and family at length. Patient was encouraged to quit drinking ETOH. Qualifiers: Heart failure type: diastolic Heart failure chronicity: acute Qualified Code(s): I50.31 - Acute diastolic (congestive) heart failure Discussion w patient/family: The assessment and plan as outlined above was discussed with the patient and family who expressed understanding and agreement. All questions were answered. Thank you for involving us in the care of your patient. Please call with any questions. Discussed and reviewed with . Subjective Principal diagnosis: NSTEMI, CHF Interval history: Patient reports shortness of breath is improved. Denies chest pain. Objective Vital Signs Temperature 98.7 F 12/20/18 03:03 Pulse Rate 85 12/20/18 03:03 Respiratory Rate 16 12/20/18 03:03 Blood Pressure 91/44 12/20/18 03:03 O2 Sat by Pulse Oximetry 100 12/20/18 03:03 Temperature 97.4 F L 12/23/18 07:42 Pulse Rate 88 12/23/18 07:42 Respiratory Rate 28 12/23/18 04:47 Blood Pressure 152/72 12/23/18 07:42 O2 Sat by Pulse Oximetry 100 12/23/18 07:42 Oxygen Delivery Oxygen Delivery Nasal Cannula General: Conversant, No Apparent Distress HEENT: Atraumatic, Normocephaly, Mucus Membranes Moist Neck: No JVD, Normal carotid pulses Cardiac: Reg Rate and Rhythm, Normal S1 and S2, No Murmur Lungs: Other (Lung sounds diminished throughout. ) Neuro: Alert and responsive, No focal deficits noted Abdomen: Soft, Non-Tender Skin: No rashes noted on visualized skin Musculoskeletal: No Chest Wall Tenderness Extremities: No Clubbing, No Cyanosis, No Edema, Normal Pulses Results 12/23/18 06:11 12/23/18 06:11 Lab Results Active Medications Hydrocodone Bitart/Acetaminophen (Brice 5-325 Mg) 1 tab PO Q6HR PRN PRN Reason: Pain Stop: 06/21/19 15:58 Last Admin: 12/22/18 16:34 Dose: 1 tab Documented by: Albuterol Sulfate (Proventil Inhaler) 2 puff IH Q6H PRN PRN Reason: Shortness Of Breath Stop: 06/23/19 09:33 Albuterol/Ipratropium (Duoneb) 3 ml IH Q2VVSWC PRN PRN Reason: Shortness Of Breath/Wheezing Stop: 06/24/19 11:06 Atorvastatin Calcium (Lipitor) 20 mg PO HS SATHISH Stop: 06/21/19 21:01 Last Admin: 12/22/18 20:49 Dose: 20 mg Documented by: Dextrose/Water (Dextrose 50% (Syg)) 25 ml IVP AD PRN PRN Reason: Hypoglycemia Stop: 06/21/19 06:39 Ferrous Sulfate (Ferrous Sulfate) 325 mg PO BIDWM SATHISH Stop: 06/22/19 17:01 Last Admin: 12/23/18 08:34 Dose: 325 mg Documented by: Fluticasone Propionate (Flonase) 100 mcg NS DAILY PRN; Protocol PRN Reason: Allergy Symptoms Stop: 06/23/19 09:33 Folic Acid (Folic Acid) 1 mg PO DAILY SATHISH Stop: 06/24/19 09:01 Last Admin: 12/23/18 08:33 Dose: 1 mg Documented by: Furosemide (Lasix) 40 mg PO BIDDIURETIC [facility] Stop: 06/22/19 17:01 Last Admin: 12/23/18 08:34 Dose: 40 mg Documented by: Glucagon (Glucagen) 1 mg IM ONCE PRN PRN Reason: Hypoglycemia Stop: 06/21/19 06:39 Glucose (Gluctose) 15 gm PO ONCE PRN PRN Reason: Hypoglycemia Stop: 06/21/19 06:39 Glucose (Gluctose) 30 gm PO ONCE PRN PRN Reason: Hypoglycemia Stop: 06/21/19 06:39 Dextrose (Dextrose 5%) 1,000 mls @ 100 mls/hr IVC .Q10H PRN PRN Reason: HYPOGLYCEMIA Stop: 06/21/19 06:39 Insulin Human Lispro (Humalog) 0 units SQ TIDAC [facility]; Protocol Stop: 06/24/19 07:31 Last Admin: 12/23/18 11:34 Dose: 2 units Documented by: Insulin Human Lispro (Humalog) 0 units SQ [facility]; Protocol Stop: 06/23/19 21:01 Last Admin: 12/22/18 21:05 Dose: Not Given Documented by: Lisinopril (Zestril) 10 mg PO DAILY [facility]; Protocol Stop: 06/24/19 09:01 Last Admin: 12/23/18 08:33 Dose: 10 mg Documented by: Loratadine (Claritin) 10 mg PO DAILY PRN PRN Reason: Allergy Symptoms Lorazepam (Ativan) 1 mg IVP Q1H PRN PRN Reason: Alcohol Withdrawal Stop: 06/24/19 08:20 Lorazepam (Ativan) 2 mg IVP Q4HR PRN PRN Reason: CIWA Score of 10-21 Stop: 06/24/19 08:20 Lorazepam (Ativan) 4 mg IVP Q4HR PRN PRN Reason: CIWA Score of 22-45 Stop: 06/24/19 08:20 Metoprolol Succinate (Toprol Xl) 25 mg PO DAILY [facility] Stop: 06/21/19 10:21 Last Admin: 12/23/18 08:33 Dose: 25 mg Documented by: Morphine Sulfate (Morphine) 2 mg IVP Q3H PRN; Protocol PRN Reason: Chest Pain Stop: 06/21/19 06:40 Naloxone HCl (Narcan) 0.4 mg IVP Q2MPRN PRN PRN Reason: SEE COMMENTS Stop: 06/21/19 06:27 Nicotine (Nicoderm) 21 mg TD DAILY [facility]; Protocol Stop: 06/21/19 11:59 Last Admin: 12/23/18 10:56 Dose: 21 mg Documented by: Ondansetron HCl (Zofran) 4 mg IVP Q8HR PRN PRN Reason: Nausea And Vomiting Stop: 06/21/19 06:27 Pantoprazole Sodium (Protonix) 40 mg IVP DAILY@0630 [facility] Stop: 06/23/19 06:31 Last Admin: 12/23/18 04:58 Dose: 40 mg Documented by: Tamsulosin HCl (Flomax) 0.4 mg PO DAILY [facility]; Protocol Stop: 06/24/19 09:01 Last Admin: 12/23/18 08:34 Dose: 0.4 mg Documented by: Thiamine HCl (Vitamin B-1) 100 mg PO DAILY [facility] Stop: 06/24/19 09:01 Last Admin: 12/23/18 08:34 Dose: 100 mg Documented by: Laboratory Tests 12/23/18 12/23/18 06:11 06:11 Hgb 8.5 L Creatinine 0.98 - Imaging and Cardiology Chest Xray: report reviewed Echo: report reviewed - EKG Interpretation EKG results cardiology: other (Telemetry reveiwed with average HR previous 12 hours noted to be 100, SR. PVCs, PACs noted.) - VTE Documentation of Mechanical Device: Graduated compression elastic hosiery Consult Discharge Plan - Plan Referrals: Sadi Xiong DO [Primary Care Provider] -
[2018-12-23] MEDS: *HR* HYDROcodone/Acet 5/325 mg TABLET PO PRN (12:29)
--- NOTE | 2018-12-23 19:30 | Internal Med Progress Note ---
Hospitalist Progress Note - Encounter Date of Encounter: 12/23/18 Time of Encounter: 13:00 - Subjective Interval History: Mr. Reynolds was not considered a candidate for left heart catheter given his increased risk for bleeds from cirrhosis and varices. He does qualify for nocturnal oxygen use based on his nighttime pulse ox GEN: Denies fever, chills or malaise HEENT: Denies headache blurriness, or dysphagia RESP: Denies SOB or cough CV: Denies chest pain or palpitations GI: Denies Nausea, vomiting, diarrhea or constipation Reviewed current in hospital medications with modifications see orders Reviewed Routine labs - Exam Vitals: Temp Pulse Resp BP Pulse Ox 98.8 F 107 20 130/70 100 12/23/18 15:49 12/23/18 15:49 12/23/18 13:00 12/23/18 15:49 12/23/18 15:49 Exam: GEN: Obese male NAD, A&O x 3, Pleasant and conversant SKIN: [place] warm acyanotic not jaundice HEART: RRR, no murmurs LUNGS: Diminished with few wheezing and scattered crackles, overall non labored ABDOMEN; Soft, non tender or distended, BS x 4 normactive EXT: No LE edema, Pedal pulses 1+, radial pulses 2+ PSYCH: Mood anxious and affect is labile - Assessment and Plan (1) Non-STEMI (non-ST elevated myocardial infarction) Current Visit: Yes Status: Acute Assessment and Plan: patient initially refused LHC. He is now agreeable to left heart cath. Cardiology is following per progress note not considered ideal candidate at present due to increased risks of bleed given his cirrhosis and varices. We will continue to optimize medical management he is on KAYLIN inhibitor with lisinopril beta christiana with metoprolol and atorvastatin moderate intensity (2) DM (diabetes mellitus), type 2 Current Visit: No Status: Chronic Assessment and Plan: on insulin lispro low dose sliding scale, A1c was 6, POC 120-156 at goal (3) Acute decompensated heart failure Current Visit: Yes Status: Acute Assessment and Plan: His coronary artery disease likely playing a factor. Continue to optimize treatment may need outpatient follow-up with cardiology to discuss treatment option Respiratory status continues to improve. patient with a total negative balance of 13.2 litters. Plan: To continue IV diruresis with furosemide 40mg/IV BI strict intake and output water restriction to 1.5 litters a day. daily weight low dose aces add on metoprolol (4) GI bleed Current Visit: Yes Status: Acute Assessment and Plan: Status post colonoscopy which revealed colonic polyp in the sigmoid colon 20 mm nonbleeding internal hemorrhoids and diverticulosis likely source of bleed. Hemoglobin stable 9 yesterday 8.5 today would also initiate anemia work up- suggestive of iron deficiency anemia ferritin is low normal supratherapeutic B12 and folate. Patient reported passing dark stool about 3 days ago. patient with Hx of esophageal varices. s/P EGD: grade II esophageal varices. Portal hypertensive gastropathy. (5) Alcoholism Current Visit: Yes Status: Chronic Assessment and Plan: Not withdrawing. Continue to encourage abstinence place on CIWA (6) Esophageal varices Current Visit: Yes Status: Acute Assessment and Plan: Status post EGD on Toprol-XL for now (7) Anemia Current Visit: Yes Status: Chronic Assessment and Plan: Work up initiated revealed mild iron deficiency anemia would initiate iron sucrose, oral supplementation would not be adequate in the short-term (8) COPD (chronic obstructive pulmonary disease) Current Visit: Yes Status: Acute Assessment and Plan: His chronic tobacco use suspect underlying COPD. DuoNeb DVT Prophylaxis: SCDs - Time Spent with Patient Total time spent is greater than 50% in coordination of care (as documented) at patient's floor/unit and/or counseling patient: Internal Medicine: Result - Labs CBC & Chem 7: 12/23/18 06:11 12/23/18 06:11 Labs: Short CBC 12/23/18 Range/Units 06:11 WBC 7.3 (4.3-11.1) K/mcL Hgb 8.5 L (12.9-16.9) g/dL Hct 27.6 L (37.5-50.1) % Plt Count 190 (140-400) K/mcL BMP 12/23/18 06:11 Sodium 135 L Potassium 3.7 Chloride 95 L Carbon Dioxide 31 H BUN 6 Creatinine 0.98 Glucose 145 H Calcium 8.9 - ABG Interpretation ABG results: ABG ABG pH 7.48 pH Units (7.32-7.45) H 12/23/18 04:41 ABG pCO2 42 mmHg (35-45) 12/23/18 04:41 ABG pO2 62 mmHg (85-104) L 12/23/18 04:41 ABG O2 Saturation 93 % (95-98) L 12/23/18 04:41 PT/INR, D-dimer PT 12.8 Seconds (9.4-12.1) H 12/20/18 07:29 - Impressions Impressions Chest X-Ray 12/23/18 12:27 IMPRESSION: No acute process. D/ / Azar Hilario MD / Azar Hilario MD Interpreting Provider: Azar Hilario MD - VTE Documentation of Mechanical Device: Graduated compression elastic hosiery Consult Discharge Plan - Plan Referrals: Sadi Xiong DO [Primary Care Provider] - (2) DM (diabetes mellitus), type 2 Qualifiers: Diabetes mellitus complication status: without complication Qualified Code(s): E11.9 - Type 2 diabetes mellitus without complications (4) GI bleed Qualifiers: GI bleed type/associated pathology: unspecified gastrointestinal hemorrhage type Qualified Code(s): K92.2 - Gastrointestinal hemorrhage, unspecified (7) Anemia Qualifiers: Anemia type: iron deficiency Iron deficiency anemia type: chronic blood loss Qualified Code(s): D50.0 - Iron deficiency anemia secondary to blood loss (chronic)
[2018-12-23] MEDS: Ipratropium/Albuterol Neb 3 ML IH SCH (22:48)
[2018-12-24] MEDS: *HR* HYDROcodone/Acet 5/325 mg TABLET PO PRN ×4 (03:19→23:31)
[2018-12-24] MEDS: Ipratropium/Albuterol Neb 3 ML IH SCH ×4 (04:17→22:11)
[2018-12-24 05:18] LABS: Hematocrit 27.5 % (37.5-50.1); Hemoglobin 8.6 g/dL (12.9-16.9); Mean Corpuscular HGB Conc 31.3 g/dL (31.6-35.5); Mean Corpuscular Hemoglobin 29.1 pg (28.0-33.3); Mean Corpuscular Volume 92.9 fL (83.0-100.0); Mean Platelet Volume 10.2 fL (9.4-12.4); Platelet Count 181 K/mcL (140-400); Red Blood Count 2.96 M/mcL (4.19-5.50); Red Cell Distribution Width 17.4 % (11.5-14.5); White Blood Count 6.6 K/mcL (4.3-11.1)
[2018-12-24 05:39] LABS: BUN/Creatinine Ratio 6 (6-26); Blood Urea Nitrogen 5 mg/dL (6-20); Calcium 8.6 mg/dL (8.6-10.3); Carbon Dioxide 30 mEq/L (23-29); Chloride 96 mEq/L (98-107); Glucose 150 mg/dL (70-105); Osmolality,Calculated 280 (280-300); Potassium 3.5 mEq/L (3.5-5.1); Sodium 135 mEq/L (136-145); eGFR For African Americans > 60 (> 60); eGFR For Non-African Americans > 60 (> 60)
[2018-12-24] MEDS: Pantoprazole 40 MG VIAL IVP SCH (06:09)
[2018-12-24] MEDS: Metoprolol XL (24 HR) Succ 25 MG TAB.ER.24H PO SCH (08:02)
[2018-12-24] MEDS: Thiamine (B-1) 100 MG TABLET PO SCH (08:03)
[2018-12-24] MEDS: Folic Acid 1 MG TABLET PO SCH (08:03)
[2018-12-24] MEDS: Nicotine 21 MG PATCH.TD24 TD SCH (08:04)
[2018-12-24] MEDS: Furosemide 40 MG TABLET PO SCH ×2 (08:04→17:06)
[2018-12-24] MEDS: Insulin LISPRO 300 UNITS/3 ML VIAL SQ SCH ×4 (08:08→21:56)
--- NOTE | 2018-12-24 18:07 | Internal Med Progress Note ---
Hospitalist Progress Note - Encounter Date of Encounter: 12/24/18 Time of Encounter: 15:00 - Subjective Interval History: Mr. Reynolds is complaining of limited mobility and afraid of ambulation due to his acute on chronic low back pain. Discharge planning was discussed with the patient he is now agreeable to go to [facility] for rehabilitation. GEN: Denies fever, chills or malaise HEENT: Denies headache blurriness, or dysphagia RESP: Denies SOB or cough CV: Denies chest pain or palpitations GI: Denies Nausea, vomiting, diarrhea or constipation Reviewed current in hospital medications with modifications see orders Reviewed Routine labs - Exam Vitals: Temp Pulse Resp BP Pulse Ox 98.2 F 94 18 122/68 94 12/24/18 14:46 12/24/18 14:46 12/24/18 15:37 12/24/18 15:37 12/24/18 15:37 Exam: GEN: Obese male NAD, A&O x 3, seems tearful SKIN: [place] warm acyanotic not jaundice HEART: RRR, no murmurs LUNGS: Diminished with few wheezing and scattered crackles, overall non labored ABDOMEN; Soft, non tender or distended, BS x 4 normactive EXT: No LE edema, Pedal pulses 1+, radial pulses 2+ PSYCH: Mood anxious and affect is labile - Assessment and Plan (1) Non-STEMI (non-ST elevated myocardial infarction) Current Visit: Yes Status: Acute Assessment and Plan: patient initially refused LHC. He is now agreeable to left heart cath. Cardiology is following per progress note not considered ideal candidate at present due to increased risks of bleed given his cirrhosis and varices. We will continue to optimize medical management he is on KAYLIN inhibitor with lisinopril beta christiana with metoprolol and atorvastatin moderate intensity. He denies any chest pain (2) DM (diabetes mellitus), type 2 Current Visit: No Status: Chronic Assessment and Plan: on insulin lispro low dose sliding scale, A1c was 6, POC 148-208 at goal (3) Acute decompensated heart failure Current Visit: Yes Status: Acute Assessment and Plan: His coronary artery disease likely playing a factor. Continue to optimize treatment may need outpatient follow-up with cardiology to discuss treatment option Respiratory status continues to improve. patient with a total negative balance of 13.2 litters. Plan: To continue IV diruresis with furosemide 40mg/IV BI strict intake and output water restriction to 1.5 litters a day. daily weight low dose aces add on metoprolol (4) GI bleed Current Visit: Yes Status: Acute Assessment and Plan: Status post colonoscopy which revealed colonic polyp in the sigmoid colon 20 mm nonbleeding internal hemorrhoids and diverticulosis likely source of bleed. Hemoglobin stable 8.6 today would also initiate anemia work up-suggestive of iron deficiency anemia ferritin is low normal supratherapeutic B12 and folate. Patient reported passing dark stool about 3 days ago. patient with Hx of esophageal varices. s/P EGD: grade II esophageal varices. Portal hypertensive gastropathy. (5) Alcoholism Current Visit: Yes Status: Chronic Assessment and Plan: Not withdrawing. Continue to encourage abstinence place on CIWA, [place] CIWA (6) Esophageal varices Current Visit: Yes Status: Acute Assessment and Plan: Status post EGD on Toprol-XL for now (7) Anemia Current Visit: Yes Status: Chronic Assessment and Plan: Work up initiated revealed mild iron deficiency anemia would initiate iron sucrose, oral supplementation would not be adequate in the short-term (8) COPD (chronic obstructive pulmonary disease) Current Visit: Yes Status: Acute Assessment and Plan: His chronic tobacco use suspect underlying COPD. Star (9) Chronic intermittent hypoxia with obstructive sleep apnea Current Visit: Yes Status: Acute Assessment and Plan: Given patient's body habitus and nocturnal pulse ox patient appears to have ANGELA and nighttime hypoxia. He would benefit from a sleep study to qualify him for a CPAP howver this will have to be done as an outpatient DVT Prophylaxis: SCDs given his history of GI bleed. Anticipate discharge to ECF tomorrow - Time Spent with Patient Total time spent is greater than 50% in coordination of care (as documented) at patient's floor/unit and/or counseling patient: Internal Medicine: Result - Labs CBC & Chem 7: 12/24/18 04:25 12/24/18 04:25 Labs: Short CBC 12/24/18 Range/Units 04:25 WBC 6.6 (4.3-11.1) K/mcL Hgb 8.6 L (12.9-16.9) g/dL Hct 27.5 L (37.5-50.1) % Plt Count 181 (140-400) K/mcL BMP 12/24/18 04:25 Sodium 135 L Potassium 3.5 Chloride 96 L Carbon Dioxide 30 H BUN 5 L Creatinine 0.84 Glucose 150 H Calcium 8.6 - ABG Interpretation ABG results: ABG ABG pH 7.48 pH Units (7.32-7.45) H 12/23/18 04:41 ABG pCO2 42 mmHg (35-45) 12/23/18 04:41 ABG pO2 62 mmHg (85-104) L 12/23/18 04:41 ABG O2 Saturation 93 % (95-98) L 12/23/18 04:41 PT/INR, D-dimer PT 12.8 Seconds (9.4-12.1) H 12/20/18 07:29 - VTE Documentation of Mechanical Device: Graduated compression elastic hosiery Consult Discharge Plan - Plan Referrals: Sadi Xiong DO [Primary Care Provider] - (2) DM (diabetes mellitus), type 2 Qualifiers: Diabetes mellitus complication status: without complication Qualified Code(s): E11.9 - Type 2 diabetes mellitus without complications (4) GI bleed Qualifiers: GI bleed type/associated pathology: unspecified gastrointestinal hemorrhage type Qualified Code(s): K92.2 - Gastrointestinal hemorrhage, unspecified (7) Anemia Qualifiers: Anemia type: iron deficiency Iron deficiency anemia type: chronic blood loss Qualified Code(s): D50.0 - Iron deficiency anemia secondary to blood loss (chronic)
[2018-12-25] MEDS: Ipratropium/Albuterol Neb 3 ML IH SCH ×2 (04:11→10:18)
[2018-12-25] MEDS: Pantoprazole 40 MG VIAL IVP SCH (05:14)
[2018-12-25] MEDS: *HR* HYDROcodone/Acet 5/325 mg TABLET PO PRN ×3 (06:01→23:37)
[2018-12-25 06:12] LABS: Basophils % 0.6 %; Eosinophils # 0.4 K/mcL (0.0-0.6); Eosinophils % 5.2 %; Hematocrit 28.5 % (37.5-50.1); Hemoglobin 8.7 g/dL (12.9-16.9); Immature Granulocytes % 0.3 % (0-4); Lymphocytes % 15.1 %; Mean Corpuscular HGB Conc 30.5 g/dL (31.6-35.5); Mean Corpuscular Hemoglobin 28.6 pg (28.0-33.3); Mean Corpuscular Volume 93.8 fL (83.0-100.0); Mean Platelet Volume 10.6 fL (9.4-12.4); Monocytes # 0.9 K/mcL (0.0-1.3); Monocytes % 12.7 %; Neutrophils # 4.5 K/mcL (1.6-8.9); Platelet Count 185 K/mcL (140-400); Red Blood Count 3.04 M/mcL (4.19-5.50); Red Cell Distribution Width 17.2 % (11.5-14.5); Segmented Neutrophils % 66.1 %; White Blood Count 6.9 K/mcL (4.3-11.1)
[2018-12-25 06:34] LABS: BUN/Creatinine Ratio 8 (6-26); Blood Urea Nitrogen 8 mg/dL (6-20); Calcium 9.1 mg/dL (8.6-10.3); Carbon Dioxide 29 mEq/L (23-29); Chloride 98 mEq/L (98-107); Glucose 136 mg/dL (70-105); Osmolality,Calculated 280 (280-300); Potassium 3.8 mEq/L (3.5-5.1); Sodium 135 mEq/L (136-145); eGFR For African Americans > 60 (> 60); eGFR For Non-African Americans > 60 (> 60)
[2018-12-25] MEDS: Furosemide 40 MG TABLET PO SCH ×2 (09:06→16:41)
[2018-12-25] MEDS: Metoprolol XL (24 HR) Succ 25 MG TAB.ER.24H PO SCH (09:06)
[2018-12-25] MEDS: Thiamine (B-1) 100 MG TABLET PO SCH (09:07)
[2018-12-25] MEDS: Folic Acid 1 MG TABLET PO SCH (09:07)
[2018-12-25] MEDS: Insulin LISPRO 300 UNITS/3 ML VIAL SQ SCH ×4 (09:07→21:26)
[2018-12-25] MEDS: Nicotine 21 MG PATCH.TD24 TD SCH (09:08)
--- NOTE | 2018-12-25 13:22 | Internal Med Progress Note ---
Hospitalist Progress Note - Encounter Date of Encounter: 12/25/18 Time of Encounter: 13:15 - Subjective Interval History: Mr Reynolds is awaiting placement. Per nursing staff shrestha has been discontinued, He now avoids in the bedside bath room instead of the bedside urinal. He stated he did not tolerate the BiPAP mask last night and really not keen on using it. GEN: Denies fever, chills or malaise HEENT: Denies headache blurriness, or dysphagia RESP: Denies SOB or cough CV: Denies chest pain or palpitations GI: Denies Nausea, vomiting, diarrhea or constipation Reviewed current in hospital medications with modifications see orders Reviewed Routine labs - Exam Vitals: Temp Pulse Resp BP Pulse Ox 98.1 F 100 16 120/64 96 12/25/18 11:04 12/25/18 11:04 12/25/18 11:04 12/25/18 11:04 12/25/18 11:04 Exam: GEN: Obese male NAD, A&O x 3 although somnolent SKIN: [place] warm acyanotic not jaundice HEART: RRR but tachycardic, no murmurs LUNGS: Diminished with few wheezing and scattered crackles, overall non labored ABDOMEN; Soft, non tender or distended, BS x 4 normactive EXT: No LE edema, Pedal pulses 1+, radial pulses 2+ PSYCH: Mood anxious and affect is labile - Assessment and Plan (1) Non-STEMI (non-ST elevated myocardial infarction) Current Visit: Yes Status: Acute Assessment and Plan: patient initially refused LHC. He is now agreeable to left heart cath. Cardiology is following per progress note not considered ideal candidate at present due to increased risks of bleed given his cirrhosis and varices. We will continue to optimize medical management he is on KAYLIN inhibitor with lisinopril beta christiana with metoprolol and atorvastatin moderate intensity. He denies any chest pain (2) DM (diabetes mellitus), type 2 Current Visit: No Status: Chronic Assessment and Plan: on insulin lispro low dose sliding scale, A1c was 6, POC 157-190 at goal (3) Acute decompensated heart failure Current Visit: Yes Status: Acute Assessment and Plan: His coronary artery disease likely playing a factor. Continue to optimize treatment may need outpatient follow-up with cardiology to discuss futher treatment option Respiratory status continues to improve. patient with a total negative balance of 16 L (4) GI bleed Current Visit: Yes Status: Acute Assessment and Plan: Status post colonoscopy which revealed colonic polyp in the sigmoid colon 20 mm nonbleeding internal hemorrhoids and diverticulosis likely source of bleed. Hemoglobin stable 8.6 today would also initiate anemia work up-suggestive of iron deficiency anemia ferritin is low normal supratherapeutic B12 and folate. Patient reported passing dark stool about 3 days ago. patient with Hx of esophageal varices. s/P EGD: grade II esophageal varices. Portal hypertensive gastropathy. (5) Alcoholism Current Visit: Yes Status: Chronic Assessment and Plan: Not withdrawing. Continue to encourage abstinence place on CIWA, [place] CIWA (6) Esophageal varices Current Visit: Yes Status: Acute Assessment and Plan: Status post EGD on Toprol-XL for now (7) Anemia Current Visit: Yes Status: Chronic Assessment and Plan: Work up initiated revealed mild iron deficiency anemia would initiate iron sucrose, oral supplementation would not be adequate in the short-term, hemoglobin trended up slightly 8.6 to 8.7 (8) COPD (chronic obstructive pulmonary disease) Current Visit: Yes Status: Acute Assessment and Plan: His chronic tobacco use suspect underlying COPD. continue DuoNeb, would discontinue scheduled dosing due to tachycardia. No more incidence of patient desatting oxygen weaned down to 2 L satting 96% (9) Chronic intermittent hypoxia with obstructive sleep apnea Current Visit: Yes Status: Acute Assessment and Plan: Given patient's body habitus and nocturnal pulse ox patient appears to have ANGELA and nighttime hypoxia. He would benefit from a sleep study to qualify him for a CPAP howver this will have to be done as an outpatient. Although per today's discussion, patient seems to indicate he is not keen on positive ventilation due to claustrophobia DVT Prophylaxis: SCDs given his history of GI bleed. Anticipate discharge in the next 48 hours - Time Spent with Patient Total time spent is greater than 50% in coordination of care (as documented) at patient's floor/unit and/or counseling patient: Internal Medicine: Result - Labs CBC & Chem 7: 12/25/18 05:29 12/25/18 05:29 Labs: Short CBC 12/25/18 Range/Units 05:29 WBC 6.9 (4.3-11.1) K/mcL Hgb 8.7 L (12.9-16.9) g/dL Hct 28.5 L (37.5-50.1) % Plt Count 185 (140-400) K/mcL Neutrophils # 4.5 (1.6-8.9) K/mcL BMP 12/25/18 05:29 Sodium 135 L Potassium 3.8 Chloride 98 Carbon Dioxide 29 BUN 8 Creatinine 0.96 Glucose 136 H Calcium 9.1 - ABG Interpretation ABG results: ABG ABG pH 7.48 pH Units (7.32-7.45) H 12/23/18 04:41 ABG pCO2 42 mmHg (35-45) 12/23/18 04:41 ABG pO2 62 mmHg (85-104) L 12/23/18 04:41 ABG O2 Saturation 93 % (95-98) L 12/23/18 04:41 PT/INR, D-dimer PT 12.8 Seconds (9.4-12.1) H 12/20/18 07:29 - VTE Documentation of Mechanical Device: Graduated compression elastic hosiery Consult Discharge Plan - Plan Referrals: Sadi Xiong DO [Primary Care Provider] - (2) DM (diabetes mellitus), type 2 Qualifiers: Diabetes mellitus complication status: without complication Qualified Code(s): E11.9 - Type 2 diabetes mellitus without complications (4) GI bleed Qualifiers: GI bleed type/associated pathology: unspecified gastrointestinal hemorrhage type Qualified Code(s): K92.2 - Gastrointestinal hemorrhage, unspecified (7) Anemia Qualifiers: Anemia type: iron deficiency Iron deficiency anemia type: chronic blood loss Qualified Code(s): D50.0 - Iron deficiency anemia secondary to blood loss (chronic)
[2018-12-26] MEDS: *HR* HYDROcodone/Acet 5/325 mg TABLET PO PRN ×3 (05:49→21:14)
[2018-12-26 07:35] LABS: Basophils % 0.5 %; Eosinophils # 0.5 K/mcL (0.0-0.6); Eosinophils % 6.8 %; Hematocrit 29.2 % (37.5-50.1); Hemoglobin 8.8 g/dL (12.9-16.9); Immature Granulocytes % 0.3 % (0-4); Lymphocytes % 15.6 %; Mean Corpuscular HGB Conc 30.1 g/dL (31.6-35.5); Mean Corpuscular Hemoglobin 27.9 pg (28.0-33.3); Mean Corpuscular Volume 92.7 fL (83.0-100.0); Mean Platelet Volume 10.8 fL (9.4-12.4); Monocytes # 0.8 K/mcL (0.0-1.3); Monocytes % 11.3 %; Neutrophils # 4.3 K/mcL (1.6-8.9); Platelet Count 215 K/mcL (140-400); Red Blood Count 3.15 M/mcL (4.19-5.50); Red Cell Distribution Width 17.2 % (11.5-14.5); Segmented Neutrophils % 65.5 %; White Blood Count 6.6 K/mcL (4.3-11.1)
[2018-12-26 07:58] LABS: BUN/Creatinine Ratio 8 (6-26); Blood Urea Nitrogen 7 mg/dL (6-20); Calcium 8.9 mg/dL (8.6-10.3); Carbon Dioxide 31 mEq/L (23-29); Chloride 98 mEq/L (98-107); Glucose 119 mg/dL (70-105); Magnesium 1.7 mg/dL (1.6-2.6); Osmolality,Calculated 281 (280-300); Sodium 136 mEq/L (136-145); eGFR For African Americans > 60 (> 60); eGFR For Non-African Americans > 60 (> 60)
[2018-12-26] MEDS: Insulin LISPRO 300 UNITS/3 ML VIAL SQ SCH ×4 (10:20→21:16)
[2018-12-26] MEDS: Folic Acid 1 MG TABLET PO SCH (10:27)
[2018-12-26] MEDS: Thiamine (B-1) 100 MG TABLET PO SCH (10:27)
[2018-12-26] MEDS: Metoprolol XL (24 HR) Succ 25 MG TAB.ER.24H PO SCH (10:27)
[2018-12-26] MEDS: Nicotine 21 MG PATCH.TD24 TD SCH (10:27)
[2018-12-26] MEDS: Furosemide 40 MG TABLET PO SCH ×2 (10:27→17:39)
--- NOTE | 2018-12-26 16:08 | Internal Med Progress Note ---
Hospitalist Progress Note - Encounter Date of Encounter: 12/26/18 Time of Encounter: 11:15 - Subjective Interval History: Mr Reynolds is awaiting placement to the ECF for rehabilitation. He did not tolerate BiPAP machine last night GEN: Denies fever, chills or malaise HEENT: Denies headache blurriness, or dysphagia RESP: Denies SOB or cough CV: Denies chest pain or palpitations GI: Denies Nausea, vomiting, diarrhea or constipation Reviewed current in hospital medications with modifications see orders Reviewed Routine labs - Exam Vitals: Temp Pulse Resp BP Pulse Ox 98.1 F 110 22 104/82 96 12/26/18 15:52 12/26/18 15:52 12/26/18 15:52 12/26/18 15:52 12/26/18 15:52 Exam: GEN: Obese male NAD, A&O x 3 more awake today SKIN: [place] warm acyanotic not jaundice HEART: RRR but tachycardic, no murmurs LUNGS: Diminished but appears CTA no wheezing or rales overall non labored ABDOMEN; Soft, non tender or distended, BS x 4 normactive EXT: No LE edema, Pedal pulses 1+, radial pulses 2+ PSYCH: Mood anxious and affect is labile - Assessment and Plan (1) Non-STEMI (non-ST elevated myocardial infarction) Current Visit: Yes Status: Acute Assessment and Plan: patient initially refused LHC. He is now agreeable to left heart cath. Cardiology is following per progress note not considered ideal candidate at present due to increased risks of bleed given his cirrhosis and varices. We marla l continue to optimize medical management he is on KAYLIN inhibitor with lisinopril beta christiana with metoprolol and atorvastatin moderate intensity. He denies any chest pain (2) DM (diabetes mellitus), type 2 Current Visit: No Status: Chronic Assessment and Plan: on insulin lispro low dose sliding scale, A1c was 6, POC 160-195 at goal (3) Acute decompensated heart failure Current Visit: Yes Status: Acute Assessment and Plan: His coronary artery disease likely playing a factor. Continue to optimize karin atment may need outpatient follow-up with cardiology to discuss futher treatment option Respiratory status continues to improve. patient with a total negative balance of 19 L (4) GI bleed Current Visit: Yes Status: Acute Assessment and Plan: Status post colonoscopy which revealed colonic polyp in the sigmoid colon 20 mm nonbleeding internal hemorrhoids and diverticulosis likely source of bleed. H emoglobin trending up 8.6-8.7-8.8 today would also initiate anemia work up- suggestive of iron deficiency anemia ferritin is low normal supratherapeutic B12 and folate. Patient reported passing dark stool about 3 days ago. patient with Hx of esophageal varices. s/P EGD: grade II esophageal varices. Portal hypertensive gastropathy. (5) Alcoholism Current Visit: Yes Status: Chronic Assessment and Plan: Not withdrawing. Continue to encourage abstinence place on CIWA, [place] CIWA (6) Esophageal varices Current Visit: Yes Status: Acute Assessment and Plan: Status post EGD on Toprol-XL for now (7) Anemia Current Visit: Yes Status: Chronic Assessment and Plan: Work up initiated revealed mild iron deficiency anemia would initiate iron sucrose, oral supplementation would not be adequate in the short-term, h emoglobin trended up slightly 8.6-8.7-8.8 (8) COPD (chronic obstructive pulmonary disease) Current Visit: Yes Status: Acute Assessment and Plan: His chronic tobacco use suspect underlying COPD. continue DuoNeb prn, would discontinue scheduled dosing due to tachycardia. No more incidence of patient desatting oxygen weaned down to 2 L satting 96% (9) Chronic intermittent hypoxia with obstructive sleep apnea Current Visit: Yes Status: Acute Assessment and Plan: Given patient's body habitus and nocturnal pulse ox patient appears to have ANGELA and nighttime hypoxia. He would benefit from a sleep study to qualify him for a CPAP howver this will have to be done as an outpatient. Although per today's discussion, patient seems to indicate he is not keen on positive ventilation due to claustrophobia DVT Prophylaxis: SCDs given his history of GI bleed. Anticipate discharge friday - Time Spent with Patient Total time spent is greater than 50% in coordination of care (as documented) at patient's floor/unit and/or counseling patient: Internal Medicine: Result - Labs CBC & Chem 7: 12/26/18 06:45 12/26/18 06:45 Labs: Short CBC 12/26/18 Range/Units 06:45 WBC 6.6 (4.3-11.1) K/mcL Hgb 8.8 L (12.9-16.9) g/dL Hct 29.2 L (37.5-50.1) % Plt Count 215 (140-400) K/mcL Neutrophils # 4.3 (1.6-8.9) K/mcL BMP 12/26/18 06:45 Sodium 136 Potassium 4.0 Chloride 98 Carbon Dioxide 31 H BUN 7 Creatinine 0.89 Glucose 119 H Calcium 8.9 - ABG Interpretation ABG results: ABG ABG pH 7.48 pH Units (7.32-7.45) H 12/23/18 04:41 ABG pCO2 42 mmHg (35-45) 12/23/18 04:41 ABG pO2 62 mmHg (85-104) L 12/23/18 04:41 ABG O2 Saturation 93 % (95-98) L 12/23/18 04:41 PT/INR, D-dimer PT 12.8 Seconds (9.4-12.1) H 12/20/18 07:29 - VTE Documentation of Mechanical Device: Graduated compression elastic hosiery Consult Discharge Plan - Plan Referrals: Sadi Xiong DO [Primary Care Provider] - (2) DM (diabetes mellitus), type 2 Qualifiers: Diabetes mellitus complication status: without complication Qualified Code(s): E11.9 - Type 2 diabetes mellitus without complications (4) GI bleed Qualifiers: GI bleed type/associated pathology: unspecified gastrointestinal hemorrhage type Qualified Code(s): K92.2 - Gastrointestinal hemorrhage, unspecified (7) Anemia Qualifiers: Anemia type: iron deficiency Iron deficiency anemia type: chronic blood loss Qualified Code(s): D50.0 - Iron deficiency anemia secondary to blood loss (chronic)
[2018-12-27] MEDS: *HR* HYDROcodone/Acet 5/325 mg TABLET PO PRN ×2 (05:30→14:36)
[2018-12-27] MEDS: Metoprolol XL (24 HR) Succ 25 MG TAB.ER.24H PO SCH (08:57)
[2018-12-27] MEDS: Nicotine 21 MG PATCH.TD24 TD SCH (08:57)
[2018-12-27] MEDS: Thiamine (B-1) 100 MG TABLET PO SCH (08:57)
[2018-12-27] MEDS: Folic Acid 1 MG TABLET PO SCH (08:58)
[2018-12-27] MEDS: Furosemide 40 MG TABLET PO SCH ×2 (08:58→16:46)
[2018-12-27 09:00] LABS: Basophils % 0.5 %; Eosinophils # 0.4 K/mcL (0.0-0.6); Eosinophils % 5.8 %; Immature Granulocytes % 0.2 % (0-4); Lymphocytes # 0.8 K/mcL (0.6-4.6); Lymphocytes % 13.6 %; Mean Corpuscular Hemoglobin 28.5 pg (28.0-33.3); Mean Corpuscular Volume 94.9 fL (83.0-100.0); Mean Platelet Volume 10.5 fL (9.4-12.4); Monocytes # 0.7 K/mcL (0.0-1.3); Monocytes % 11.8 %; Neutrophils # 4.1 K/mcL (1.6-8.9); Platelet Count 193 K/mcL (140-400); Red Blood Count 3.16 M/mcL (4.19-5.50); Red Cell Distribution Width 17.2 % (11.5-14.5); Segmented Neutrophils % 68.1 %
[2018-12-27] MEDS: Insulin LISPRO 300 UNITS/3 ML VIAL SQ SCH ×4 (09:01→22:52)
[2018-12-27 09:21] LABS: BUN/Creatinine Ratio 10 (6-26); Blood Urea Nitrogen 10 mg/dL (6-20); Calcium 8.8 mg/dL (8.6-10.3); Carbon Dioxide 32 mEq/L (23-29); Chloride 96 mEq/L (98-107); Glucose 143 mg/dL (70-105); Magnesium 1.8 mg/dL (1.6-2.6); Osmolality,Calculated 282 (280-300); Sodium 135 mEq/L (136-145); eGFR For African Americans > 60 (> 60); eGFR For Non-African Americans > 60 (> 60)
--- NOTE | 2018-12-27 14:20 | Internal Med Progress Note ---
Hospitalist Progress Note - Encounter Date of Encounter: 12/27/18 Time of Encounter: 10:25 - Subjective Interval History: Mr dixon is awaiting placement to [facility] for rehabilitation. This morning he stated he is a little bit sleepy and tired he attributes this to his chronic back pain. He states he has been ambulating. He only tolerated his BiPAP briefly. GEN: Denies fever, chills or malaise HEENT: Denies headache blurriness, or dysphagia RESP: Denies SOB or cough CV: Denies chest pain or palpitations GI: Denies Nausea, vomiting, diarrhea or constipation Reviewed current in hospital medications with modifications see orders Reviewed Routine labs - Exam Vitals: Temp Pulse Resp BP Pulse Ox 98.1 F 114 20 121/66 99 12/26/18 15:52 12/27/18 11:57 12/27/18 11:57 12/27/18 11:57 12/26/18 21:17 Exam: GEN: Obese male NAD, A&O x 3, Pleasant and conversant, at his bedside SKIN: [place] warm acyanotic not jaundice HEART: RRR, no murmurs LUNGS: Diminished but CTA no wheeze or crackles, overall non labored ABDOMEN; Soft, non tender or distended, BS x 4 normactive EXT: No LE edema, Pedal pulses 1+, radial pulses 2+ PSYCH: Mood and affect is appropriate - Assessment and Plan (1) DM (diabetes mellitus), type 2 Current Visit: Yes Status: Chronic Assessment and Plan: on insulin lispro low dose sliding scale, A1c was 6, POC 126-163 at goal (2) Anemia Current Visit: Yes Status: Chronic Assessment and Plan: Work up initiated revealed mild iron deficiency anemia would initiate iron sucrose, oral supplementation would not be adequate in the short-term, hemoglobin trended up slightly 8.6-8.7-8.8-9 improvement since IV iron sucrose (3) Non-STEMI (non-ST elevated myocardial infarction) Current Visit: Yes Status: Acute Assessment and Plan: patient initially refused LHC. He is now agreeable to left heart cath. Cardiology is following per progress note not considered ideal candidate at present due to increased risks of bleed given his cirrhosis and varices. We will continue to optimize medical management he is on KAYLIN inhibitor with lisinopril beta christiana with metoprolol and atorvastatin moderate intensity. He denies any chest pain (4) Acute decompensated heart failure Current Visit: Yes Status: Acute Assessment and Plan: His coronary artery disease likely playing a factor. Continue to optimize treatment may need outpatient follow-up with cardiology to discuss futher treatm ent option. He has agreed to ECF for rehabilitation Respiratory status continues to improve. patient with a total negative balance of 19 L (5) GI bleed Current Visit: Yes Status: Acute Assessment and Plan: Status post colonoscopy which revealed colonic polyp in the sigmoid colon 20 mm nonbleeding internal hemorrhoids and diverticulosis likely source of bleed. Hemoglobin trending up 8.6-8.7-8.8 -9 today would also initiate anemia work up- suggestive of iron deficiency anemia ferritin is low normal supratherapeutic B12 and folate. Patient reported passing dark stool about 3 days ago. patient with Hx of esophageal varices. s/P EGD: grade II esophageal varices. Portal hypertensive gastropathy. (6) Alcoholism Current Visit: Yes Status: Chronic Assessment and Plan: Not withdrawing. Continue to encourage abstinence place on CIWA, [place] CIWA (7) Esophageal varices Current Visit: Yes Status: Acute Assessment and Plan: Status post EGD on Toprol-XL for now (8) COPD (chronic obstructive pulmonary disease) Current Visit: Yes Status: Acute (9) Chronic intermittent hypoxia with obstructive sleep apnea Current Visit: Yes Status: Acute Assessment and Plan: Given patient's body habitus and nocturnal pulse ox patient appears to have ANGELA and nighttime hypoxia. He would benefit from a sleep study to qualify him for a CPAP however this will have to be done as an outpatient. Although per today's discussion, patient seems to indicate he is not keen on positive ventilation due to claustrophobia DVT Prophylaxis: Given his recent GI bleed, on SCDs expect discharge tomorrow - Time Spent with Patient Total time spent is greater than 50% in coordination of care (as documented) at patient's floor/unit and/or counseling patient: Internal Medicine: Result - Labs CBC & Chem 7: 12/27/18 08:41 12/27/18 08:41 Labs: Short CBC 12/27/18 Range/Units 08:41 WBC 6.0 (4.3-11.1) K/mcL Hgb 9.0 L (12.9-16.9) g/dL Hct 30.0 L (37.5-50.1) % Plt Count 193 (140-400) K/mcL Neutrophils # 4.1 (1.6-8.9) K/mcL BMP 12/27/18 08:41 Sodium 135 L Potassium 4.0 Chloride 96 L Carbon Dioxide 32 H BUN 10 Creatinine 0.96 Glucose 143 H Calcium 8.8 - ABG Interpretation ABG results: ABG ABG pH 7.48 pH Units (7.32-7.45) H 12/23/18 04:41 ABG pCO2 42 mmHg (35-45) 12/23/18 04:41 ABG pO2 62 mmHg (85-104) L 12/23/18 04:41 ABG O2 Saturation 93 % (95-98) L 12/23/18 04:41 PT/INR, D-dimer PT 12.8 Seconds (9.4-12.1) H 12/20/18 07:29 - VTE Documentation of Mechanical Device: Graduated compression elastic hosiery Consult Discharge Plan - Plan Referrals: Sadi Xiong DO [Primary Care Provider] - (1) DM (diabetes mellitus), type 2 Qualifiers: Diabetes mellitus complication status: without complication Qualified Code(s) : E11.9 - Type 2 diabetes mellitus without complications (2) Anemia Qualifiers: Anemia type: iron deficiency Iron deficiency anemia type: chronic blood loss Qualified Code(s): D50.0 - Iron deficiency anemia secondary to blood loss (chronic) (5) GI bleed Qualifiers: GI bleed type/associated pathology: unspecified gastrointestinal hemorrhage type Qualified Code(s): K92.2 - Gastrointestinal hemorrhage, unspecified
[2018-12-28] MEDS: *HR* HYDROcodone/Acet 5/325 mg TABLET PO PRN ×3 (00:42→16:56)
[2018-12-28 05:17] LABS: Basophils % 0.6 %; Eosinophils # 0.3 K/mcL (0.0-0.6); Eosinophils % 5.9 %; Hematocrit 30.7 % (37.5-50.1); Hemoglobin 9.4 g/dL (12.9-16.9); Immature Granulocytes % 0.2 % (0-4); Lymphocytes # 0.9 K/mcL (0.6-4.6); Lymphocytes % 17.1 %; Mean Corpuscular HGB Conc 30.6 g/dL (31.6-35.5); Mean Corpuscular Hemoglobin 28.9 pg (28.0-33.3); Mean Corpuscular Volume 94.5 fL (83.0-100.0); Mean Platelet Volume 10.7 fL (9.4-12.4); Monocytes # 0.7 K/mcL (0.0-1.3); Monocytes % 12.5 %; Neutrophils # 3.5 K/mcL (1.6-8.9); Platelet Count 211 K/mcL (140-400); Red Blood Count 3.25 M/mcL (4.19-5.50); Red Cell Distribution Width 17.2 % (11.5-14.5); Segmented Neutrophils % 63.7 %; White Blood Count 5.5 K/mcL (4.3-11.1)
[2018-12-28 05:37] LABS: BUN/Creatinine Ratio 10 (6-26); Blood Urea Nitrogen 10 mg/dL (6-20); Calcium 9.4 mg/dL (8.6-10.3); Carbon Dioxide 32 mEq/L (23-29); Chloride 97 mEq/L (98-107); Glucose 143 mg/dL (70-105); Osmolality,Calculated 280 (280-300); Potassium 4.1 mEq/L (3.5-5.1); Sodium 134 mEq/L (136-145); eGFR For African Americans > 60 (> 60); eGFR For Non-African Americans > 60 (> 60)
[2018-12-28 07:10] VITALS: BP 148/74
[2018-12-28] MEDS: Thiamine (B-1) 100 MG TABLET PO SCH (09:11)
[2018-12-28] MEDS: Metoprolol XL (24 HR) Succ 25 MG TAB.ER.24H PO SCH (09:12)
[2018-12-28] MEDS: Folic Acid 1 MG TABLET PO SCH (09:12)
[2018-12-28] MEDS: Furosemide 40 MG TABLET PO SCH (09:12)
[2018-12-28] MEDS: Nicotine 21 MG PATCH.TD24 TD SCH (09:13)
[2018-12-28] MEDS: Insulin LISPRO 300 UNITS/3 ML VIAL SQ SCH ×2 (09:14→13:11)
--- NOTE | 2018-12-28 10:24 | Discharge Summary ---
- NOTES TO OUTPATIENT PROVIDER Notes to Outpatient Provider: Posthospital discharge for GI bleed, NSTEMI, chronic respiratory failure with hypoxia status post nocturnal pulse oximetry. Patient would need to evaluated for sleep apnea given his body habitus. Patient required noninvasive positive pressure ventilation during his hospital stay. Date of Encounter: 12/28/18 Time of Encounter: 10:22 - Discharge Diagnosis (1) Acute decompensated heart failure Priority: Primary Status: Acute Assessment and Plan: His coronary artery disease likely playing a factor. Continue to optimize treatment may need outpatient follow-up with cardiology to discuss futher treatment option. He has agreed to ECF for rehabilitation Respiratory status continues to improve. patient with a total negative balance of 19 L (2) GI bleed Priority: Primary Status: Acute Assessment and Plan: Status post colonoscopy which revealed colonic polyp in the sigmoid colon 20 mm nonbleeding internal hemorrhoids and diverticulosis likely source of bleed. Hemoglobin trending up 8.6-8.7-8.8 -9 today would also initiate anemia work up- suggestive of iron deficiency anemia ferritin is low normal supratherapeutic B12 and folate. Patient reported passing dark stool about 3 days ago. patient with Hx of esophageal varices. s/P EGD: grade II esophageal varices. Portal hypertensive gastropathy. Qualifiers: GI bleed type/associated pathology: unspecified gastrointestinal hemorrhage type Qualified Code(s): K92.2 - Gastrointestinal hemorrhage, unspecified (3) Non-STEMI (non-ST elevated myocardial infarction) Priority: Secondary Status: Acute Assessment and Plan: patient initially refused LHC. He is now agreeable to left heart cath. Cardio logy is following per progress note not considered ideal candidate at present due to increased risks of bleed given his cirrhosis and varices. We will continue to optimize medical management he is on KAYLIN inhibitor with lisinopril beta christiana with metoprolol and atorvastatin moderate intensity. He denies any chest pain (4) DM (diabetes mellitus), type 2 Priority: Secondary Status: Chronic Assessment and Plan: on insulin lispro low dose sliding scale, A1c was 6, POC 126-163 at goal Qualifiers: Diabetes mellitus complication status: without complication Qualified Code(s): E11.9 - Type 2 diabetes mellitus without complications (5) Anemia Priority: Secondary Status: Chronic Assessment and Plan: Work up initiated revealed mild iron deficiency anemia would initiate iron sucrose, oral supplementation would not be adequate in the short-term, hemoglobin trended up slightly 8.6-8.7-8.8-9 improvement since IV iron sucrose Qualifiers: Anemia type: iron deficiency Iron deficiency anemia type: chronic blood loss Qualified Code(s): D50.0 - Iron deficiency anemia secondary to blood loss (chronic) (6) Alcoholism Priority: Secondary Status: Chronic Assessment and Plan: Not withdrawing. Continue to encourage abstinence place on CIWA, DC CIWA (7) Esophageal varices Priority: Secondary Status: Acute Assessment and Plan: Status post EGD on Toprol-XL for now Qualifiers: Esophageal varices type: secondary Esophageal varices bleeding: with bleeding Qualified Code(s): I85.11 - Secondary esophageal varices with bleeding (8) COPD (chronic obstructive pulmonary disease) Priority: Secondary Status: Acute Assessment and Plan: His chronic tobacco use suspect underlying COPD. continue DuoNeb prn, would discontinue scheduled dosing due to tachycardia. No more incidence of patient desatting oxygen weaned down to 2 L satting 96% Qualifiers: COPD type: unspecified COPD Qualified Code(s): J44.9 - Chronic obstructive pulmonary disease, unspecified (9) Chronic intermittent hypoxia with obstructive sleep apnea Priority: Secondary Status: Acute Assessment and Plan: Given patient's body habitus and nocturnal pulse ox patient appears to have ANGELA and nighttime hypoxia. He would benefit from a sleep study to qualify him for a CPAP however this will have to be done as an outpatient. Although per today's discussion, patient seems to indicate he is not keen on positive ventilation due to claustrophobia Hospital course: Mr. Reynolds is a 58 year old male was hospitalized with shortness of breath, acute GI bleed and underwent EGD noted to have varices requiring intervention. Patient hospital stay was prolonged due to his acute coronary syndrome workup he was deemed too high risk for left heart Catheterization as such was opted for medical management on interim. Patient given his comorbid condition of body habitus was deemed not a candidate for discharge home given his limited mobility. His hospitalization was for prolonged due to ECF placement issues and patient's indecision regarding the treatment plan. Patient was also noted to this set intermittently nocturnal pulse oximetry revealed significant hypoxia. Given his body habitus he was considered to need workup for obstructive sleep apnea. Patient required noninvasive positive ventilation during his hospital stay initially was reluctant citing claustrophobia. Once patient was educated on positive ventilation and benefits he was able to tolerate the mask. He did try the mask last night all night and reported this morning feeling quite a new. He is very keen on undergoing sleep study now. This could be arranged as outpatient. He is currently been discharged to a rehabilitation facility - Time Spent with Patient Total time spent providing and/or coordinating discharge services: - Discharge Medications Prescriptions: New Ipratropium/Albuterol Neb [Duoneb] 3 ml IH [id number] PRN #0 inhsol PRN Reason: Shortness Of Breath/Wheezing Iron Polysaccharide Complex [Ferric X-150] 150 mg PO BID #60 capsule Atorvastatin [Lipitor] 20 mg PO HS tablet Nicotine Patch [Nicoderm] 21 mg TD DAILY patch.td24 HYDROcodone/Acet 5/325 mg [[place] 5-325 mg] 1 tab PO Q6HR PRN 7 Days #28 tablet PRN Reason: Pain Furosemide [Lasix] 40 mg PO BIDDIURETIC tablet Polyethylene Glycol 3350 [MiraLAX] 17 gm PO DAILY powd.pack Continued Metoprolol [Lopressor] 25 mg PO BID Docusate [Colace] 100 mg PO BID PRN PRN Reason: Constipation Tamsulosin [Flomax] 0.4 mg PO DAILY Thiamine Mononitrate [Vitamin B-1] 100 mg PO DAILY Albuterol Sulfate [Ventolin Hfa] 2 puff IH Q6H PRN PRN Reason: Shortness Of Breath Aspirin 81 mg PO DAILY Cetirizine HCl [24Hour Allergy] 10 mg PO DAILY PRN PRN Reason: Allergy Symptoms Empagliflozin [Jardiance] 10 mg PO DAILY Fluticasone Propionate Nasal [Flonase] 2 spray NS DAILY PRN PRN Reason: Allergy Symptoms Folic Acid 1 mg PO DAILY GlipiZIDE XL (24 HR) [Glucotrol XL] 10 mg PO BID Levomefolate/B6/B12/Algal Oil [Metanx Capsule] 1 cap PO BID Lisinopril [Zestril] 10 mg PO DAILY metFORMIN [Glucophage] 500 mg PO BID Omeprazole [PriLOSEC] 40 mg PO DAILY Umeclidinium [place] [Incruse Ellipta] 1 puff IH HS Multivit-Min/FA/Lycopen/Lutein [Centrum Silver Men Tablet] 1 tab PO DAILY Discontinued Ferrous Sulfate 325 mg PO DAILY Furosemide [Lasix] 60 mg PO BID Tramadol HCl [Ultram] 100 mg PO QID PRN PRN Reason: Pain Home Medications: Metoprolol [Lopressor] 25 mg PO BID 04/18/15 [History] Docusate [Colace] 100 mg PO BID PRN 06/23/15 [History] Tamsulosin [Flomax] 0.4 mg PO DAILY 06/23/15 [History] Thiamine Mononitrate [Vitamin B-1] 100 mg PO DAILY 06/23/15 [History] Albuterol Sulfate [Ventolin Hfa] 2 puff IH Q6H PRN 12/21/18 [History] Aspirin 81 mg PO DAILY 12/21/18 [History] Cetirizine HCl [24Hour Allergy] 10 mg PO DAILY PRN 12/21/18 [History] Empagliflozin [Jardiance] 10 mg PO DAILY 12/21/18 [History] Fluticasone Propionate Nasal [Flonase] 2 spray NS DAILY PRN 12/21/18 [History] Folic Acid 1 mg PO DAILY 12/21/18 [History] GlipiZIDE XL (24 HR) [Glucotrol XL] 10 mg PO BID 12/21/18 [History] Levomefolate/B6/B12/Algal Oil [Metanx Capsule] 1 cap PO BID 12/21/18 [History] Lisinopril [Zestril] 10 mg PO DAILY 12/21/18 [History] Multivit-Min/FA/Lycopen/Lutein [Centrum Silver Men Tablet] 1 tab PO DAILY 12/21/18 [History] Omeprazole [PriLOSEC] 40 mg PO DAILY 12/21/18 [History] Umeclidinium [place] [Incruse Ellipta] 1 puff IH HS 12/21/18 [History] metFORMIN [Glucophage] 500 mg PO BID 12/21/18 [History] Atorvastatin [Lipitor] 20 mg PO HS tablet 12/28/18 [Rx] Furosemide [Lasix] 40 mg PO BIDDIURETIC tablet 12/28/18 [Rx] HYDROcodone/Acet 5/325 mg [[place] 5-325 mg] 1 tab PO Q6HR PRN 7 Days #28 tablet 12/28/18 [Rx] Ipratropium/Albuterol Neb [Duoneb] 3 ml IH [id number] PRN #0 inhsol 12/28/18 [Rx] Iron Polysaccharide Complex [Ferric X-150] 150 mg PO BID #60 capsule 12/28/18 [Rx] Nicotine Patch [Nicoderm] 21 mg TD DAILY patch.td24 12/28/18 [Rx] Polyethylene Glycol 3350 [MiraLAX] 17 gm PO DAILY powd.pack 12/28/18 [Rx] Allergies/Adverse Reactions: Allergy/AdvReac Type Severity Reaction Status Date / Time No Known Allergies Allergy Verified 12/21/18 14:45 Date of admission: 12/20/18 06:26 Primary care physician: Sadi Xiong DO Consults: 12/20/18 05:16 Consult to Cardiology [CONS] Stat Comment: Consulting Provider: Cardiology [place] Reason for Consult: ME Call Completed: Yes 12/20/18 06:54 Consult to Gastroenterology [CONS] Routine Consulting Provider: Gastroenterology [place] Reason for Consult: GI bleed; Cirrohsis Call Completed: No 12/22/18 15:16 Consult to Nurse Navigator [CONS] Routine Comment: CHF, NSTEMI 12/23/18 08:31 Consult to Cardiology [CONS] Routine Comment: Pt is NPO Consulting Provider: Cardiology [place] Reason for Consult: Patient is agreeable to heart cath Call Completed: Yes 12/24/18 14:19 Consult to Physical Therapy [CONS] Routine Comment: Evaluate, develop and implement POC Reason for Consult: weakness, poss SNF for rehab Does patient have active BEDREST order?: No Is patient medically & hemodynamically stable?: Yes 12/24/18 14:20 Consult to Occupational Therapy [CONS] Routine Comment: Evaluate, develop and implement POC Reason for Consult: weakness, poss SNF placement for rehab Does patient have active BEDREST order?: No Is patient medically & hemodynamically stable?: Yes Discharging clinician: Mary Wagner Anticipated date of discharge: 12/28/18 - Constitutional Vitals: Temp Pulse Resp BP Pulse Ox 98.1 F 83 18 148/74 98 12/28/18 07:05 12/28/18 07:05 12/28/18 07:05 12/28/18 07:05 12/28/18 07:05 General appearance: Present: cooperative, disheveled, mild distress, A&O X 3, pleasant, answers questions appropriately Exam: GEN: NAD, A&O x 3, Pleasant and conversant SKIN: [place] warm acyanotic not jaundice HEART: RRR, no murmurs LUNGS: CTA no wheeze or crackles, overall non labored ABDOMEN; Soft, non tender or distended, BS x 4 normactive EXT: No LE edema, Pedal pulses 1+, radial pulses 2+ PSYCH: Mood and affect is appropriate - Patient Status Disposition: Transfer Inpatient Rehab Fac Condition: Good Functional capacity at discharge: independent ambulation Overall status at discharge: patient is progressing back to baseline - Discharge Instructions Follow Up With: Sadi Xiong DO [Primary Care Provider] - - Diet and Activity Activity: as per the cardiac rehab, as per physical therapy Diet: diabetic diet, low fat, low cholesterol, low salt diet - VTE Documentation of Mechanical Device: Graduated compression elastic hosiery
--- NOTE | 2018-12-28 10:50 | Physician Discharge Referral ---
ExtendedCare Referral Info Provider in Charge after Transfer: PCP Institutional Level of Care: Intermediate - Diagnosis (1) Acute decompensated heart failure Priority: Primary Status: Acute (2) GI bleed Priority: Primary Status: Acute (3) Non-STEMI (non-ST elevated myocardial infarction) Priority: Secondary Status: Acute (4) DM (diabetes mellitus), type 2 Priority: Secondary Status: Chronic (5) Anemia Priority: Secondary Status: Chronic (6) Alcoholism Priority: Secondary Status: Chronic (7) Esophageal varices Priority: Secondary Status: Acute (8) COPD (chronic obstructive pulmonary disease) Priority: Secondary Status: Acute (9) Chronic intermittent hypoxia with obstructive sleep apnea Priority: Secondary Status: Acute Prognosis: Fair Aware of Diagnosis: Patient, Family Aware of Prognosis: Patient, Family - Transfer Medications Prescriptions: Iron Polysaccharide Complex [Ferric X-150] 150 mg PO BID #60 capsule HYDROcodone/Acet 5/325 mg [[place] 5-325 mg] 1 tab PO Q6HR PRN 7 Days #28 tablet PRN Reason: Pain Home Medications: Metoprolol [Lopressor] 25 mg PO BID 04/18/15 [History] Docusate [Colace] 100 mg PO BID PRN 06/23/15 [History] Tamsulosin [Flomax] 0.4 mg PO DAILY 06/23/15 [History] Thiamine Mononitrate [Vitamin B-1] 100 mg PO DAILY 06/23/15 [History] Albuterol Sulfate [Ventolin Hfa] 2 puff IH Q6H PRN 12/21/18 [History] Aspirin 81 mg PO DAILY 12/21/18 [History] Cetirizine HCl [24Hour Allergy] 10 mg PO DAILY PRN 12/21/18 [History] Empagliflozin [Jardiance] 10 mg PO DAILY 12/21/18 [History] Fluticasone Propionate Nasal [Flonase] 2 spray NS DAILY PRN 12/21/18 [History] Folic Acid 1 mg PO DAILY 12/21/18 [History] GlipiZIDE XL (24 HR) [Glucotrol XL] 10 mg PO BID 12/21/18 [History] Levomefolate/B6/B12/Algal Oil [Metanx Capsule] 1 cap PO BID 12/21/18 [History] Lisinopril [Zestril] 10 mg PO DAILY 12/21/18 [History] Multivit-Min/FA/Lycopen/Lutein [Centrum Silver Men Tablet] 1 tab PO DAILY 12/21/18 [History] Omeprazole [PriLOSEC] 40 mg PO DAILY 12/21/18 [History] Umeclidinium [place] [Incruse Ellipta] 1 puff IH HS 12/21/18 [History] metFORMIN [Glucophage] 500 mg PO BID 12/21/18 [History] Atorvastatin [Lipitor] 20 mg PO HS tablet 12/28/18 [Rx] Furosemide [Lasix] 40 mg PO BIDDIURETIC tablet 12/28/18 [Rx] HYDROcodone/Acet 5/325 mg [[place] 5-325 mg] 1 tab PO Q6HR PRN 7 Days #28 tablet 12/28/18 [Rx] Ipratropium/Albuterol Neb [Duoneb] 3 ml IH [id number] PRN #0 inhsol 12/28/18 [Rx] Iron Polysaccharide Complex [Ferric X-150] 150 mg PO BID #60 capsule 12/28/18 [Rx] Nicotine Patch [Nicoderm] 21 mg TD DAILY patch.td24 12/28/18 [Rx] Polyethylene Glycol 3350 [MiraLAX] 17 gm PO DAILY powd.pack 12/28/18 [Rx] Allergies/Adverse Reactions: Allergy/AdvReac Type Severity Reaction Status Date / Time No Known Allergies Allergy Verified 12/21/18 14:45 - Respiratory Orders Oxygen / L per min (2 to 3 L) Smoking Cessation: Smoking cessation has been advised. For more information, call the [place] Tobacco Quit Line at 9-175-WIOF-NOW. - Advance Directives Code Status: Full Code - Mobility Orders Ambulate - Rehabiliation Orders Rehab Potential: Good - Diet Orders Cardiac CERTIFICATION: I certify that the transfer of the above named patient to an Extended Care Facility is necessary for the continuing treatment of the diagnosis listed. The above information is true and accurate reflection of patient's current condition. Confidential - Redisclosure prohibited without a patient's written consent.
== END 2018-12-28 20:24 | DRG 190 ==
LOC: EMEROOARM 02:55 → 2NENU 02:55 → SUATTDRO 06:26 → 2NENU 06:57
PROVIDERS: ADMIT Family Medicine; ATTEND Pharmacist

== ENCOUNTER 2019-01-12 19:30 | Inpatient (IN) ==
[2019-01-12] MEDS ORDERED: Aspirin 81 MG TAB.CHEW PO ONE (19:42)
[2019-01-12 20:31] LABS: BUN/Creatinine Ratio 17 (6-26); Blood Urea Nitrogen 25 mg/dL (6-20); Calcium 9.1 mg/dL (8.6-10.3); Carbon Dioxide 26 mEq/L (23-29); Chloride 92 mEq/L (98-107); Glucose 165 mg/dL (70-105); Osmolality,Calculated 274 (280-300); Potassium 4.2 mEq/L (3.5-5.1); Sodium 128 mEq/L (136-145); eGFR For African Americans > 60 (> 60); eGFR For Non-African Americans 50 (> 60)
[2019-01-12 20:37] LABS: Troponin I 0.04 ng/mL (< 0.04)
[2019-01-12] MEDS ORDERED: 0.9 % Sodium Chloride 1,000 ML IVC ONE (20:56)
[2019-01-12 21:51] LABS: Hematocrit 31.6 % (37.5-50.1); Mean Corpuscular HGB Conc 31.6 g/dL (31.6-35.5); Mean Corpuscular Hemoglobin 28.3 pg (28.0-33.3); Mean Corpuscular Volume 89.5 fL (83.0-100.0); Mean Platelet Volume 12.1 fL (9.4-12.4); Platelet Count 230 K/mcL (140-400); Red Blood Count 3.53 M/mcL (4.19-5.50); Red Cell Distribution Width 15.8 % (11.5-14.5); White Blood Count 18.5 K/mcL (4.3-11.1)
[2019-01-12 23:07] LABS: Bilirubin,Urine Negative (Negative); Blood,Urine Negative (Negative); Clarity,Urine Cloudy (Clear); Color,Urine Yellow (Yellow); Glucose,Urine (UA) Normal (Normal); Ketones,Urine Negative (Negative); Leukocyte Esterase,Urine Large (Negative); Nitrite,Urine Negative (Negative); Protein,Urine Negative (Neg-Trace); Specific Gravity,Urine 1.014 (1.010-1.025); Urobilinogen,Urine Normal (Normal)
[2019-01-12 23:14] LABS: Bacteria,Urine Moderate per hpf (None-Few); Hyaline Casts,Urine None Seen per lpf (None-Few); RBC,Urine 0-3 per hpf (0-3); Squamous Epithelial Cell,Urine Many per lpf (None-Few); WBC,Urine TNTC per hpf (0-3)
[2019-01-13] MEDS ORDERED: Nicotine 21 MG PATCH.TD24 TD PRN (00:26)
[2019-01-13] MEDS ORDERED: Naloxone 0.4 MG/ML INJ IVP PRN (00:27)
[2019-01-13] MEDS ORDERED: Dextrose Gel 15 GM/37.5 ML TUBE PO PRN ×2 (00:39)
[2019-01-13] MEDS ORDERED: D5% in Water 1,000 ML IVC PRN (00:39)
[2019-01-13] MEDS ORDERED: *HR* Dextrose 50 % in Water (Syg) 50 ML SYRINGE IVP PRN (00:39)
[2019-01-13] MEDS: cefTRIAXone 1,000 MG in Water for inj. (sterile) 10 ML IVP SCH ×2 (00:59→08:59)
[2019-01-13 02:08] LABS: Hematocrit 30.2 % (37.5-50.1); Hemoglobin 9.6 g/dL (12.9-16.9); Mean Corpuscular HGB Conc 31.8 g/dL (31.6-35.5); Mean Corpuscular Volume 91.2 fL (83.0-100.0); Mean Platelet Volume 11.6 fL (9.4-12.4); Platelet Count 208 K/mcL (140-400); Red Blood Count 3.31 M/mcL (4.19-5.50); Red Cell Distribution Width 15.9 % (11.5-14.5); White Blood Count 16.7 K/mcL (4.3-11.1)
[2019-01-13 02:22] LABS: BUN/Creatinine Ratio 18 (6-26); Blood Urea Nitrogen 25 mg/dL (6-20); Calcium 8.8 mg/dL (8.6-10.3); Carbon Dioxide 26 mEq/L (23-29); Chloride 95 mEq/L (98-107); Glucose 127 mg/dL (70-105); Osmolality,Calculated 276 (280-300); Potassium 4.1 mEq/L (3.5-5.1); Sodium 130 mEq/L (136-145); eGFR For African Americans > 60 (> 60); eGFR For Non-African Americans 52 (> 60)
[2019-01-13 02:25] LABS: Troponin I 0.04 ng/mL (< 0.04)
[2019-01-13] MEDS: *HR* HYDROcodone/Acet 5/325 mg TABLET PO PRN (04:26)
[2019-01-13] MEDS: Insulin LISPRO 300 UNITS/3 ML VIAL SQ SCH ×3 (05:48→17:30)
[2019-01-13] MEDS ORDERED: Ipratropium/Albuterol Neb 3 ML IH PRN (09:16)
[2019-01-13] MEDS ORDERED: Loratadine 10 MG TABLET PO PRN (09:16)
[2019-01-13] MEDS ORDERED: Fluticasone Propionate Nasal 50 MCG/SPRAY BOTTLE NS PRN (09:16)
[2019-01-13] MEDS: Aspirin 81 MG TAB.CHEW PO SCH (10:04)
[2019-01-13] MEDS: Folic Acid 1 MG TABLET PO SCH (10:04)
[2019-01-13] MEDS: *HR* Heparin 5,000 UNIT/ML VIAL SQ SCH ×2 (13:08→17:29)
[2019-01-13] MEDS: Tiotropium 18 MCG inhalation IH SCH (20:17)
[2019-01-13] MEDS ORDERED: NON-FORMULARY MEDICATION 1 EACH EACH (Umeclidinium Bromide [Incruse Ellipta] 1 PUFF) IH SCH (21:00)
[2019-01-13] MEDS: Iron Polysaccharide Complex 150 MG CAPSULE PO SCH (21:06)
[2019-01-14] MEDS: *HR* HYDROcodone/Acet 5/325 mg TABLET PO PRN ×3 (00:10→18:59)
[2019-01-14] MEDS: Insulin LISPRO 300 UNITS/3 ML VIAL SQ SCH ×5 (00:12→21:56)
[2019-01-14] MEDS: *HR* Heparin 5,000 UNIT/ML VIAL SQ SCH ×2 (05:15→17:52)
[2019-01-14 05:39] LABS: Basophils % 0.3 %; Eosinophils % 2.1 %; Hematocrit 31.1 % (37.5-50.1); Hemoglobin 9.8 g/dL (12.9-16.9); Immature Granulocytes % 0.5 % (0-4); Lymphocytes % 13.2 %; Mean Corpuscular HGB Conc 31.5 g/dL (31.6-35.5); Mean Corpuscular Hemoglobin 28.1 pg (28.0-33.3); Mean Corpuscular Volume 89.1 fL (83.0-100.0); Mean Platelet Volume 12.1 fL (9.4-12.4); Monocytes % 8.3 %; Platelet Count 211 K/mcL (140-400); Red Blood Count 3.49 M/mcL (4.19-5.50); Red Cell Distribution Width 15.6 % (11.5-14.5); Segmented Neutrophils % 75.6 %; White Blood Count 10.6 K/mcL (4.3-11.1)
[2019-01-14 05:40] LABS: Eosinophils # 0.2 K/mcL (0.0-0.6); Lymphocytes # 1.4 K/mcL (0.6-4.6); Monocytes # 0.9 K/mcL (0.0-1.3)
[2019-01-14 05:56] LABS: BUN/Creatinine Ratio 18 (6-26); Blood Urea Nitrogen 16 mg/dL (6-20); Calcium 9.3 mg/dL (8.6-10.3); Carbon Dioxide 28 mEq/L (23-29); Chloride 97 mEq/L (98-107); Glucose 189 mg/dL (70-105); Osmolality,Calculated 284 (280-300); Potassium 4.1 mEq/L (3.5-5.1); Sodium 134 mEq/L (136-145); eGFR For African Americans > 60 (> 60); eGFR For Non-African Americans > 60 (> 60)
[2019-01-14] MEDS ORDERED: Regadenoson 0.4 MG/5 ML SYRINGE IVP ONE (06:25)
[2019-01-14] MEDS: Thiamine (B-1) 100 MG TABLET PO SCH (08:59)
[2019-01-14] MEDS: Aspirin 81 MG TAB.CHEW PO SCH (08:59)
[2019-01-14] MEDS: Folic Acid 1 MG TABLET PO SCH (08:59)
[2019-01-14] MEDS: Multivit/Ca/Min/Fe/FA 1 TAB TABLET PO SCH (08:59)
[2019-01-14] MEDS: Iron Polysaccharide Complex 150 MG CAPSULE PO SCH ×2 (08:59→21:15)
[2019-01-14] MEDS ORDERED: Nicotine 21 MG PATCH.TD24 TD SCH (09:00)
[2019-01-14] MEDS: LEVOMEFOLATE PO SCH (09:00)
[2019-01-14] MEDS: B12 PO SCH (09:00)
[2019-01-14] MEDS: B6 PO SCH (09:00)
[2019-01-14] MEDS: ALGAL OIL PO SCH (09:00)
[2019-01-14] MEDS: cefTRIAXone 1,000 MG in Water for inj. (sterile) 10 ML IVP SCH (09:00)
[2019-01-14] MEDS: Tiotropium 18 MCG inhalation IH SCH (20:24)
[2019-01-15] MEDS: *HR* Heparin 5,000 UNIT/ML VIAL SQ SCH (02:21)
[2019-01-15] MEDS: Insulin LISPRO 300 UNITS/3 ML VIAL SQ SCH (02:21)
[2019-01-15 06:54] VITALS: BP 167/84
[2019-01-15] MEDS: Multivit/Ca/Min/Fe/FA 1 TAB TABLET PO SCH (08:31)
[2019-01-15] MEDS: Aspirin 81 MG TAB.CHEW PO SCH (08:31)
[2019-01-15] MEDS: Folic Acid 1 MG TABLET PO SCH (08:31)
[2019-01-15] MEDS: cefTRIAXone 1,000 MG in Water for inj. (sterile) 10 ML IVP SCH (08:32)
[2019-01-15] MEDS: Thiamine (B-1) 100 MG TABLET PO SCH (08:32)
[2019-01-15] MEDS: Iron Polysaccharide Complex 150 MG CAPSULE PO SCH (08:32)
[2019-01-15] MEDS: *HR* HYDROcodone/Acet 5/325 mg TABLET PO PRN (08:32)
[2019-01-15] MEDS: ALGAL OIL PO SCH (08:33)
[2019-01-15] MEDS: B12 PO SCH (08:33)
[2019-01-15] MEDS: LEVOMEFOLATE PO SCH (08:33)
[2019-01-15] MEDS: B6 PO SCH (08:33)
== END 2019-01-15 09:40 | disposition home or self-care (01) | DRG 463 ==
LOC: EMEROOARM 19:30 → 3BNU 19:30
PROVIDERS: ADMIT Family Medicine; ATTEND Family Medicine

== ENCOUNTER 2019-01-19 16:02 | Observation (INO) ==
--- NOTE | 2019-01-19 17:30 | Emergency Department Note ---
Disposition Clinical Impression: Anemia, DM (diabetes mellitus), type 2, Tobacco abuse, CAD (coronary artery disease), Obesity, COPD (chronic obstructive pulmonary disease), CHF (congestive heart failure) Disposition: Admitted As Inpatient Forms: ED Satisfaction Letter Time of Disposition: 21:14 General Adult HPI - General Chief complaint: ED Recheck/Abnormal Lab/Rx Stated complaint: Needs a heart cath Time Seen by Provider: 01/19/19 17:27 Source: patient Limitations: no limitations - History of Present Illness HPI Narrative: 58-year-old male reports emergency department from the outpatient residency clinic at their recommendation for a notably abnormal stress test. The patient states he was recently hospitalized last week and stayed in the hospital from Friday through Friday. He has known alcoholic, per report he had hyponatremia urinary tract infection and abnormal cardiac testing. The patient followed up today, and there were concerns for significant coronary abnormalities on the stress test. The patient denies acute chest pain or shortness of breath. He has had intermittent shortness of breath and chest discomfort over the last month however. He does not describe chest pain arrived to emergency department. There is no history of prior aneurysm malignancy DVT or PE. The patient denies acute abdominal pain vomiting or diarrhea. No confusion slurred speech facial drooping or unilateral arm or leg weakness or numbness no falls injuries or acute back pain. The patient came at the behest of his primary care evaluate her regarding significant vascular comorbidities and abnormal stress test with reportedly elevated troponins last week. There is no history of coughing up blood, no leg swelling, no syncope or trauma. No confusion or convulsion. Pain Scale: 0 - Related Data Home Medications Medication Instructions Recorded Confirmed Metoprolol [Lopressor] 25 mg PO BID 04/18/15 01/12/19 Tamsulosin [Flomax] 0.4 mg PO DAILY 06/23/15 01/12/19 Thiamine Mononitrate [Vitamin B-1] 100 mg PO DAILY 06/23/15 01/12/19 Albuterol Sulfate [Ventolin Hfa] 2 puff IH Q6H PRN 12/21/18 01/12/19 Aspirin 81 mg PO DAILY 12/21/18 01/12/19 Cetirizine HCl [24Hour Allergy] 10 mg PO DAILY PRN 12/21/18 01/12/19 Fluticasone Propionate Nasal 2 spray NS DAILY PRN 12/21/18 01/12/19 [Flonase] Folic Acid 1 mg PO DAILY 12/21/18 01/12/19 GlipiZIDE XL (24 HR) [Glucotrol XL] 10 mg PO BID 12/21/18 01/12/19 Levomefolate/B6/B12/Algal Oil 1 cap PO DAILY 12/21/18 01/12/19 [Metanx Capsule] Lisinopril [Zestril] 10 mg PO DAILY 12/21/18 01/12/19 Multivit-Min/FA/Lycopen/Lutein 1 tab PO DAILY 12/21/18 01/12/19 [Centrum Silver Men Tablet] Omeprazole [PriLOSEC] 40 mg PO DAILY 12/21/18 01/12/19 Umeclidinium Empire [Incruse 1 puff IH HS 12/21/18 01/12/19 Ellipta] metFORMIN [Glucophage] 500 mg PO BID 12/21/18 01/12/19 HYDROcodone/Acet 5/325 mg [[place]ster 1 tab PO Q6HR PRN 01/12/19 01/12/19 5-325 mg] Polyethylene Glycol 3350 [MiraLAX] 17 gm PO DAILY PRN 01/12/19 01/12/19 Tramadol HCl [Ultram] 100 mg PO QID PRN 01/12/19 01/12/19 Previous Rx's Medication Instructions Recorded Atorvastatin [Lipitor] 20 mg PO HS tablet 12/28/18 Ipratropium/Albuterol Neb [Duoneb] 3 ml IH [id number] PRN #0 inhsol 12/28/18 Iron Polysaccharide Complex 150 mg PO BID #60 capsule 12/28/18 [Ferric X-150] Nicotine Patch [Nicoderm] 21 mg TD DAILY patch.td24 12/28/18 Amoxicillin/Clavulanate [Augmentin] 875 mg PO BIDWM #14 tablet 01/15/19 Furosemide [Lasix] 40 mg PO DAILY #30 tablet 01/15/19 Allergies Allergy/AdvReac Type Severity Reaction Status Date / Time No Known Allergies Allergy Verified 01/19/19 16:24 All systems ED: reviewed and negative except as stated. Past Medical History - Past Medical History Medical history: Reports: cirrhosis, CHF, COPD, myocardial infarction, other Surgical history: Reports: tonsillectomy Psychiatric history: Reports: depression - Social History Smoking Status: Current every day smoker Smokeless Tobacco Status: No Alcohol use: Reports: none Drug use: Reports: none Physical Exam - General Limitations: no limitations General appearance: alert, in no apparent distress - Head Head exam: atraumatic, normocephalic, normal inspection - Eye Eye exam: Present: normal appearance, PERRL, EOMI - ENT ENT exam: normal exam, normal oropharynx, mucous membranes moist, TM's normal bilaterally, normal external ear exam - Neck Neck exam: Present: normal inspection, full ROM, trachea midline - Chest Chest inspection: Present: normal inspection, symmetric chest wall rise. Absent: tenderness - Respiratory Respiratory exam: Present: normal lung sounds bilaterally. Absent: respiratory distress, prolonged expiratory phase - Cardiovascular Cardiovascular exam: Present: regular rate, normal rhythm, normal heart sounds - Abdominal Exam Abdominal exam: Present: soft, Non-Tender, normal bowel sounds. Absent: tenderness, distention, guarding, rebound, rigidity - Extremities Exam Extremities exam: Present: normal inspection, full ROM, normal capillary refill. Absent: tenderness, pedal edema, joint swelling, calf tenderness - Expanded Lower Extremity Exam Lower leg exam: Absent: Homans' sign Neurovascular/Tendon exam: Present: normal capillary refill. Absent: pulse deficit, motor deficit, sensory deficit, tendon deficit, extremity cold to touch, pallor - Back Exam Back exam: Present: normal inspection, full ROM. Absent: tenderness, CVA te nderness (R), CVA tenderness (L), vertebral tenderness - Neurological Exam Neurological exam: Present: alert, oriented X3, CN II-XII intact. Absent: motor sensory deficit - Psychiatric Psychiatric exam: Present: normal affect, normal mood - Skin Skin exam: Present: warm, dry, intact, normal color Course Vital Signs Temperature 98.4 F 01/19/19 16:22 Pulse Rate 90 01/19/19 16:22 Respiratory Rate 18 01/19/19 16:22 Blood Pressure 115/71 01/19/19 16:22 O2 Sat by Pulse Oximetry 98 01/19/19 16:22 Temperature 98.4 F 01/19/19 16:22 Pulse Rate 90 01/19/19 16:22 Respiratory Rate 18 01/19/19 16:22 Blood Pressure 115/71 01/19/19 16:22 O2 Sat by Pulse Oximetry 98 01/19/19 16:22 Oxygen Delivery Oxygen Delivery Room Air Medical Decision Making - MDM Narrative Medical decision making narrative: The patient has significant abnormalities on his stress test. He was sent in from the outpatient clinic for concerns regarding these abnormalities. The patient is had intermittent chest pain and shortness of breath over the last month but is not having active chest pain or shortness of breath today. EKG shows no acute changes there are some slight T-wave inversions laterally. Basic laboratory studies obtained anemia and hyperglycemia noted. The patient is known to be diabetic he is somewhat obese but has no history of prior coronary stents. Based on the patient's significant stress test abnormalities with notable vascular risk factors, I thought it might be appropriate to admit the patient the hospital. I discussed the case with the regulatory internship on-call Dr. Mena who feels it would be appropriate to admit the patient to primary medical service with cardiology consultation. I discussed the case with the hospitalist on-call who has excepted the patient to their care. Aspirin was given in the emergency department. The patient is agreeable and currently pending admission. - Lab Data Lab results reviewed: Yes I reviewed the patient's lab results. Result diagrams: 01/19/19 17:57 01/19/19 17:59 Lab Results 01/19/19 01/19/19 01/19/19 Range/Units 17:57 17:57 17:57 WBC 10.7 (4.3-11.1) K/mcL RBC 3.71 L (4.19-5.50) M/mcL Hgb 10.6 L (12.9-16.9) g/dL Hct 33.4 L (37.5-50.1) % MCV 90.0 (83.0-100.0) fL MCH 28.6 (28.0-33.3) pg MCHC 31.7 (31.6-35.5) g/dL RDW 15.9 H (11.5-14.5) % Plt Count 226 (140-400) K/mcL MPV 11.6 (9.4-12.4) fL Immature Gran % 0.3 (0-4) % Seg Neutrophils % 76.8 % Lymphocytes % 12.6 % Monocytes % 7.3 % Eosinophils % 2.7 % Basophils % 0.3 % Neutrophils # 8.2 (1.6-8.9) K/mcL Lymphocytes # 1.4 (0.6-4.6) K/mcL Monocytes # 0.8 (0.0-1.3) K/mcL Eosinophils # 0.3 (0.0-0.6) K/mcL Basophils # 0.0 (0.0-0.2) K/mcL PT 12.1 (9.4-12.1) Seconds INR 1.1 APTT 35.6 (26.0-36.0) Seconds Sodium (136-145) mEq/L Potassium (3.5-5.1) mEq/L Chloride (98-107) mEq/L Carbon Dioxide (23-29) mEq/L BUN (6-20) mg/dL Creatinine (0.70-1.30) mg/dL Est GFR ( Amer) (> 60) Est GFR (Non-Af Amer) (> 60) BUN/Creatinine Ratio (6-26) Glucose (70-105) mg/dL Calculated Osmolality (280-300) Lactic Acid (0.5-2.2) mmol/L Calcium (8.6-10.3) mg/dL Total Bilirubin (0.3-1.0) mg/dL Direct Bilirubin (0.0-0.2) mg/dL Indirect Bilirubin (0.0-1.2) mg/dL AST (13-39) Units/L ALT (7-52) Units/L Alkaline Phosphatase (34-104) Units/L Troponin I (< 0.04) ng/mL B-Natriuretic Peptide 329 H (Less than 100) pg/mL Serum Total Protein (6.4-8.9) g/dL Albumin (3.5-5.7) g/dL Globulin (2.4-3.5) g/dL Albumin/Globulin Ratio (1.1-2.2) Lipase (11-82) Units/L Urine Color (Yellow) Urine Clarity (Clear) Urine pH (5.0-8.0) pH Units Ur Specific Shannon (1.010-1.025) Urine Protein (Neg-Trace) mg/dL Urine Glucose (UA) (Normal) mg/dL Urine Ketones (Negative) mg/dL Urine Blood (Negative) Urine Nitrite (Negative) Urine Bilirubin (Negative) Urine Urobilinogen (Normal) mg/dL Ur Leukocyte Esterase (Negative) Ur Culture Indicated? (NO) Ethyl Alcohol (Less than 10) mg/dL 01/19/19 01/19/19 01/19/19 Range/Units 17:57 17:59 17:59 WBC (4.3-11.1) K/mcL RBC (4.19-5.50) M/mcL Hgb (12.9-16.9) g/dL Hct (37.5-50.1) % MCV (83.0-100.0) fL MCH (28.0-33.3) pg MCHC (31.6-35.5) g/dL RDW (11.5-14.5) % Plt Count (140-400) K/mcL MPV (9.4-12.4) fL Immature Gran % (0-4) % Seg Neutrophils % % Lymphocytes % % Monocytes % % Eosinophils % % Basophils % % Neutrophils # (1.6-8.9) K/mcL Lymphocytes # (0.6-4.6) K/mcL Monocytes # (0.0-1.3) K/mcL Eosinophils # (0.0-0.6) K/mcL Basophils # (0.0-0.2) K/mcL PT (9.4-12.1) Seconds INR APTT (26.0-36.0) Seconds Sodium 133 L (136-145) mEq/L Potassium 4.0 (3.5-5.1) mEq/L Chloride 99 (98-107) mEq/L Carbon Dioxide 24 (23-29) mEq/L BUN 16 (6-20) mg/dL Creatinine 0.97 (0.70-1.30) mg/dL Est GFR ( Amer) > 60 (> 60) Est GFR (Non-Af Amer) > 60 (> 60) BUN/Creatinine Ratio 16 (6-26) Glucose 196 H (70-105) mg/dL Calculated Osmolality 283 (280-300) Lactic Acid 2.3 H (0.5-2.2) mmol/L Calcium 9.4 (8.6-10.3) mg/dL Total Bilirubin 0.3 (0.3-1.0) mg/dL Direct Bilirubin 0.1 (0.0-0.2) mg/dL Indirect Bilirubin 0.2 (0.0-1.2) mg/dL AST 19 (13-39) Units/L ALT 18 (7-52) Units/L Alkaline Phosphatase 122 H (34-104) Units/L Troponin I 0.03 (< 0.04) ng/mL B-Natriuretic Peptide (Less than 100) pg/mL Serum Total Protein 7.6 (6.4-8.9) g/dL Albumin 3.8 (3.5-5.7) g/dL Globulin 3.8 H (2.4-3.5) g/dL Albumin/Globulin Ratio 1.0 L (1.1-2.2) Lipase 31 (11-82) Units/L Urine Color (Yellow) Urine Clarity (Clear) Urine pH (5.0-8.0) pH Units Ur Specific Shannon (1.010-1.025) Urine Protein (Neg-Trace) mg/dL Urine Glucose (UA) (Normal) mg/dL Urine Ketones (Negative) mg/dL Urine Blood (Negative) Urine Nitrite (Negative) Urine Bilirubin (Negative) Urine Urobilinogen (Normal) mg/dL Ur Leukocyte Esterase (Negative) Ur Culture Indicated? (NO) Ethyl Alcohol < 10 (Less than 10) mg/dL 01/19/19 Range/Units 19:16 WBC (4.3-11.1) K/mcL RBC (4.19-5.50) M/mcL Hgb (12.9-16.9) g/dL Hct (37.5-50.1) % MCV (83.0-100.0) fL MCH (28.0-33.3) pg MCHC (31.6-35.5) g/dL RDW (11.5-14.5) % Plt Count (140-400) K/mcL MPV (9.4-12.4) fL Immature Gran % (0-4) % Seg Neutrophils % % Lymphocytes % % Monocytes % % Eosinophils % % Basophils % % Neutrophils # (1.6-8.9) K/mcL Lymphocytes # (0.6-4.6) K/mcL Monocytes # (0.0-1.3) K/mcL Eosinophils # (0.0-0.6) K/mcL Basophils # (0.0-0.2) K/mcL PT (9.4-12.1) Seconds INR APTT (26.0-36.0) Seconds Sodium (136-145) mEq/L Potassium (3.5-5.1) mEq/L Chloride (98-107) mEq/L Carbon Dioxide (23-29) mEq/L BUN (6-20) mg/dL Creatinine (0.70-1.30) mg/dL Est GFR ( Amer) (> 60) Est GFR (Non-Af Amer) (> 60) BUN/Creatinine Ratio (6-26) Glucose (70-105) mg/dL Calculated Osmolality (280-300) Lactic Acid (0.5-2.2) mmol/L Calcium (8.6-10.3) mg/dL Total Bilirubin (0.3-1.0) mg/dL Direct Bilirubin (0.0-0.2) mg/dL Indirect Bilirubin (0.0-1.2) mg/dL AST (13-39) Units/L ALT (7-52) Units/L Alkaline Phosphatase (34-104) Units/L Troponin I (< 0.04) ng/mL B-Natriuretic Peptide (Less than 100) pg/mL Serum Total Protein (6.4-8.9) g/dL Albumin (3.5-5.7) g/dL Globulin (2.4-3.5) g/dL Albumin/Globulin Ratio (1.1-2.2) Lipase (11-82) Units/L Urine Color Yellow (Yellow) Urine Clarity Clear (Clear) Urine pH 6.0 (5.0-8.0) pH Units Ur Specific Shannon 1.016 (1.010-1.025) Urine Protein Negative (Neg-Trace) mg/dL Urine Glucose (UA) Normal (Normal) mg/dL Urine Ketones Negative (Negative) mg/dL Urine Blood Negative (Negative) Urine Nitrite Negative (Negative) Urine Bilirubin Negative (Negative) Urine Urobilinogen Normal (Normal) mg/dL Ur Leukocyte Esterase Negative (Negative) Ur Culture Indicated? NO (NO) Ethyl Alcohol (Less than 10) mg/dL - Radiology Data Radiology results reviewed: Yes I reviewed the patient's radiology results.
[2019-01-19 18:20] LABS: Basophils % 0.3 %; Eosinophils # 0.3 K/mcL (0.0-0.6); Eosinophils % 2.7 %; Hematocrit 33.4 % (37.5-50.1); Hemoglobin 10.6 g/dL (12.9-16.9); Immature Granulocytes % 0.3 % (0-4); Lymphocytes # 1.4 K/mcL (0.6-4.6); Lymphocytes % 12.6 %; Mean Corpuscular HGB Conc 31.7 g/dL (31.6-35.5); Mean Corpuscular Hemoglobin 28.6 pg (28.0-33.3); Mean Platelet Volume 11.6 fL (9.4-12.4); Monocytes # 0.8 K/mcL (0.0-1.3); Monocytes % 7.3 %; Neutrophils # 8.2 K/mcL (1.6-8.9); Platelet Count 226 K/mcL (140-400); Red Blood Count 3.71 M/mcL (4.19-5.50); Red Cell Distribution Width 15.9 % (11.5-14.5); Segmented Neutrophils % 76.8 %; White Blood Count 10.7 K/mcL (4.3-11.1)
[2019-01-19 18:27] LABS: INR 1.1; Prothrombin Time 12.1 Seconds (9.4-12.1)
[2019-01-19 18:30] LABS: Activated Partial Thrombo Time 35.6 Seconds (26.0-36.0)
[2019-01-19 18:42] LABS: Alanine Aminotransferase 18 Units/L (7-52); Albumin 3.8 g/dL (3.5-5.7); Alkaline Phosphatase 122 Units/L (34-104); Aspartate Amino Transferase 19 Units/L (13-39); BUN/Creatinine Ratio 16 (6-26); Bilirubin,Direct 0.1 mg/dL (0.0-0.2); Bilirubin,Indirect 0.2 mg/dL (0.0-1.2); Bilirubin,Total 0.3 mg/dL (0.3-1.0); Blood Urea Nitrogen 16 mg/dL (6-20); Calcium 9.4 mg/dL (8.6-10.3); Carbon Dioxide 24 mEq/L (23-29); Chloride 99 mEq/L (98-107); Ethanol < 10 mg/dL (Less than 10); Globulin 3.8 g/dL (2.4-3.5); Glucose 196 mg/dL (70-105); Osmolality,Calculated 283 (280-300); Sodium 133 mEq/L (136-145); Total Protein 7.6 g/dL (6.4-8.9); Troponin I 0.03 ng/mL (< 0.04); eGFR For African Americans > 60 (> 60); eGFR For Non-African Americans > 60 (> 60)
[2019-01-19 19:28] LABS: Bilirubin,Urine Negative (Negative); Blood,Urine Negative (Negative); Clarity,Urine Clear (Clear); Color,Urine Yellow (Yellow); Glucose,Urine (UA) Normal (Normal); Ketones,Urine Negative (Negative); Leukocyte Esterase,Urine Negative (Negative); Nitrite,Urine Negative (Negative); Protein,Urine Negative (Neg-Trace); Specific Gravity,Urine 1.016 (1.010-1.025); Urobilinogen,Urine Normal (Normal)
[2019-01-19] MEDS ORDERED: Aspirin 325 MG TABLET PO ONE (20:58)
[2019-01-19] MEDS ORDERED: *HR* HYDROmorphone (PF) 1 MG/ML SYRINGE IVP ONE (22:27)
[2019-01-19] MEDS ORDERED: Ondansetron 4 MG/2 ML VIAL IVP ONE (22:28)
[2019-01-20] MEDS ORDERED: *HR* HYDROmorphone 2 MG TABLET PO ONE (02:17)
[2019-01-20] MEDS ORDERED: Naloxone 0.4 MG/ML INJ IVP PRN (02:20)
[2019-01-20] MEDS ORDERED: *HR* Promethazine 25 MG/ML VIAL IVP PRN (02:20)
--- NOTE | 2019-01-20 03:47 | Internal Med History&Physical ---
Date of Encounter: 01/20/19 Time of Encounter: 01:30 Internal Medicine - H&P: HPI Chief complaint: Abnormal stress test Admitted From: Emergency Dept Plans for Post Hospital Care: Home History of present illness: Mr. Reynolds is a 58 year old male w/PMH of cirrhosis, diabetes, CHF, COPD, GERD, previous myocardial infarction, sciatica, bilateral hip pain, and depression presents from the ED w/CC of abnormal stress test results. Patient was recently hospitalized d/t hyponatremia, UTI, and abnormal cardiac testing. Patient presented to the ED d/t recommendation from his PCP for these abnormal test results. Patient reports he is under a lot of stress at home currently. He denies recent illness, fever, chills, nausea, vomiting, chest pain, shortness of breath, unusual bleeding, headache, changes in vision, abdominal pain, diarrhea, constipation, dizziness, lightheadedness, numbness, tingling, pre-syncope, or syncope. Past Med Surg Social Fam HX - Past Medical History Source: patient, old records reviewed Medical history: cirrhosis, CHF, COPD, myocardial infarction, other Additional medical history: alcoholic cirrhosis Psychiatric history: depression - Past Surgical History Surgical History: tonsillectomy, other Additional surgical history: tonsillectomy. EGD. colonoscopy - Social History Smoking Status: Current every day smoker Packs per day: 1/2 PPD Smokeless Tobacco Status: No Alcohol use: none Drug use: none Current living situation: Home, With Family Activity Level: Independent ambulation Recent Out of Country Travel Within the Last 8 Weeks: No Exposure or Possible Exposure to Illness During Travel: No - Family History Mother Adopted: No Race: Family Member Ethnicity: Non- Living Status: Age at : 86 Cause of : Old age Hx Family Endocrine Disorder: Yes (DM) Father Race: Family Member Ethnicity: Non- Living Status: Age at : 40 Cause of : Alcoholism Hx Family Endocrine Disorder: Yes (DM) Hx Family Psychosocial Disorders: Yes (Alcoholism) Brother Race: Family Member Ethnicity: Non- Living Status: Age at : 51 Cause of : Unknown Sister Race: Family Member Ethnicity: Non- Living Status: Still Living Hx Family Medical Disorders: No Internal Medicine - H&P: Meds Metoprolol [Lopressor] 25 mg PO BID 04/18/15 [History] Tamsulosin [Flomax] 0.4 mg PO DAILY 06/23/15 [History] Thiamine Mononitrate [Vitamin B-1] 100 mg PO DAILY 06/23/15 [History] Albuterol Sulfate [Ventolin Hfa] 2 puff IH Q6H PRN 12/21/18 [History] Aspirin 81 mg PO DAILY 12/21/18 [History] Cetirizine HCl [24Hour Allergy] 10 mg PO DAILY PRN 12/21/18 [History] Fluticasone Propionate Nasal [Flonase] 2 spray NS DAILY PRN 12/21/18 [History] Folic Acid 1 mg PO DAILY 12/21/18 [History] GlipiZIDE XL (24 HR) [Glucotrol XL] 10 mg PO BID 12/21/18 [History] Levomefolate/B6/B12/Algal Oil [Metanx Capsule] 1 cap PO DAILY 12/21/18 [History] Lisinopril [Zestril] 10 mg PO DAILY 12/21/18 [History] Multivit-Min/FA/Lycopen/Lutein [Centrum Silver Men Tablet] 1 tab PO DAILY 12/21/18 [History] Omeprazole [PriLOSEC] 40 mg PO DAILY 12/21/18 [History] Umeclidinium Waterfall [Incruse Ellipta] 1 puff IH HS 12/21/18 [History] metFORMIN [Glucophage] 500 mg PO BID 12/21/18 [History] Atorvastatin [Lipitor] 20 mg PO HS tablet 12/28/18 [Rx] Ipratropium/Albuterol Neb [Duoneb] 3 ml IH [id number] PRN #0 inhsol 12/28/18 [Rx] Iron Polysaccharide Complex [Ferric X-150] 150 mg PO BID #60 capsule 12/28/18 [Rx] Nicotine Patch [Nicoderm] 21 mg TD DAILY patch.td24 12/28/18 [Rx] HYDROcodone/Acet 5/325 mg [Rosepine 5-325 mg] 1 tab PO Q6HR PRN 01/12/19 [History] Polyethylene Glycol 3350 [MiraLAX] 17 gm PO DAILY PRN 01/12/19 [History] Tramadol HCl [Ultram] 100 mg PO QID PRN 01/12/19 [History] Amoxicillin/Clavulanate [Augmentin] 875 mg PO BIDWM #14 tablet 01/15/19 [Rx] Furosemide [Lasix] 40 mg PO DAILY #30 tablet 01/15/19 [Rx] Allergy/AdvReac Type Severity Reaction Status Date / Time No Known Allergies Allergy Verified 01/19/19 16:24 All Systems PM: A 10-system review of systems was performed and is negative for pertinent findings except as documented above in the HPI. - Constitutional Constitutional: as per HPI, no chills, no fever(s), no night sweats - EENT Eyes: as per HPI, no change in vision, no discharge, no pain, no photophobia Ears: as per HPI, no ear discharge, no ear pain, no tinnitus Nose, mouth and throat: as per HPI, no dysphagia, no nasal discharge, no neck pain, no sore throat - Breasts Breasts: as per HPI - Cardiovascular Cardiovascular ROS IM: as per HPI, no chest pain, no diaphoresis, no dyspnea, no lightheadedness, no palpitations, no syncope - Respiratory Respiratory: as per HPI, no cough, no dyspnea, no wheezing, no excessive phlegm production - Gastrointestinal Gastrointestinal: no abdominal pain, no diarrhea, no hematemesis, no h ematochezia, no melena, no nausea, no vomiting - Genitourinary Genitourinary ROS male: as per HPI - Musculoskeletal Musculoskeletal ROS IM: back pain, other (Sciatica), no numbness, no tingling - Integumentary Integumentary IM: no rash, no unusual bruising - Neurological Neurological ROS: no confusion, no convulsions, no focal weakness, no numbness, no tingling, no tremor(s) - Psychiatric Psychiatric: as per HPI, depression - Endocrine Endocrine IM: as per HPI - Hematologic/Lymphatic Hematologic/Lymphatic: no easy bruising - Allergic/Immunologic Allergic/Immunologic: as per HPI - Constitutional Vitals: Temp Pulse Resp BP Pulse Ox 98.2 F 98 18 97/54 95 01/20/19 00:44 01/20/19 00:44 01/20/19 00:44 01/20/19 00:44 01/20/19 00:44 General appearance: Present: cooperative, mild distress (Sciatica), A&O X 3, morbidly obese, pleasant, answers questions appropriately Exam: Patient examined at bedside. Patient reports back pain and sciatica with movement. Denies CP or SOB. Patient also denies any other sx or complaints on exam. VS: 98.2F temp, HR 98, RR 18, BP 97/54, SPO2 95% on room air. - Head Head exam: Present: atraumatic, normocephalic - Eye Eye exam: Present: PERRL, conjuntiva pink, sclera anicteric Pupils: Present: PERRL - ENT ENT exam: Present: normal exam - Neck Neck exam general surgery: Present: normal inspection, supple, trachea midline. Absent: lymphadenopathy - Respiratory Respiratory exam: Present: CTAB. Absent: accessory muscle use, rales, rhonchi, wheezes - Cardiovascular Cardiovascular exam: Present: RRR, +S1, +S2. Absent: diastolic murmur, gallop, rubs, systolic murmur - GI/Abdominal GI/Abdominal exam: Present: normal bowel sounds, soft, no peritoneal signs. Absent: distended, tenderness - Rectal Rectal exam: Present: deferred - Additional comments: exam deferred. - Extremities Exam Extremities exam: Present: warm, radial pulses palpable and symmetrical. Absent: calf tenderness, cyanotic, pedal edema - Back Exam Back exam: Present: normal inspection - Neurological Exam Neurological exam: Present: alert, CN II-XII intact, oriented X3, no focal deficits. Absent: pronater drift, facial droop, speech deficit - Psychiatric Psychiatric exam: Present: normal affect, normal mood - Skin Skin exam: Present: dry, intact Internal Med - H&P Results - Labs CBC & Chem 7: 01/19/19 17:57 01/19/19 17:59 Labs: Short CBC 01/19/19 Range/Units 17:57 WBC 10.7 (4.3-11.1) K/mcL Hgb 10.6 L (12.9-16.9) g/dL Hct 33.4 L (37.5-50.1) % Plt Count 226 (140-400) K/mcL Neutrophils # 8.2 (1.6-8.9) K/mcL BMP 01/19/19 17:59 Sodium 133 L Potassium 4.0 Chloride 99 Carbon Dioxide 24 BUN 16 Creatinine 0.97 Glucose 196 H Calcium 9.4 Cardiac Enzymes 01/19/19 Range/Units 17:59 Troponin I 0.03 (< 0.04) ng/mL Liver Function 01/19/19 Range/Units 17:59 Total Bilirubin 0.3 (0.3-1.0) mg/dL Direct Bilirubin 0.1 (0.0-0.2) mg/dL AST 19 (13-39) Units/L ALT 18 (7-52) Units/L Alkaline Phosphatase 122 H (34-104) Units/L Albumin 3.8 (3.5-5.7) g/dL Urine 01/19/19 Range/Units 19:16 Urine Color Yellow (Yellow) Urine Clarity Clear (Clear) Urine pH 6.0 (5.0-8.0) pH Units Ur Specific [place] 1.016 (1.010-1.025) Urine Protein Negative (Neg-Trace) mg/dL Urine Glucose (UA) Normal (Normal) mg/dL - EKG Data EKG shows normal: sinus rhythm - EKG Data Prior EKG available for review: yes EKG comments: 01/20/19 05:00 EKG dated 01/12/19 shows sinus rhythm with prolonged MT interval. EKG dated 01/19/19 shows sinus rhythm with low QRS voltage in precordial leads and nonspecific T-wave abnormality. EKG dated 01/20/19 shows sinus rhythm with nonspecific T-wave abnormality. - Diagnostic Studies Chest x-ray Additional comments: Impressions Chest X-Ray 01/19/19 00:00 IMPRESSION: Mild pulmonary vascular congestion. D/ / Angel Paul MD / Angel Paul MD Interpreting Provider: Angel Paul MD - Assessment and Plan (1) Abnormal stress test Current Visit: Yes Status: Acute Assessment and plan: Acutely abnormal stress test. Patient was recently hospitalized d/t hyponatremia, UTI, and abnormal cardiac testing. Patient presented to the ED d/t recommendation from his PCP for these abnormal test results. Patient reports he is under a lot of stress at home currently. Patient denies CP or SOB on exam. C ardiology consulted in ED. Discussion for possible LHC today. NPO. Patient is high risk for cardiac event and further morbidity d/t current abnormal stress test results requiring possible LHC, hx of CAD, hx of previous PR, current cirrhosis; and risk factors of CHF, COPD, HTN, HLD, DM, current tobacco abuse, and morbid obesity. Observation. (2) CAD (coronary artery disease) Current Visit: Yes Status: Chronic Assessment and plan: Hx of chronic CAD. Hx of previous PR. Current abnormal stress test results. Patient also reports he has carotid blockages and did not follow-up after dx. Carotid Dopplers on 08/18/18 showed right proximal ICA and mid ICA have severe 60-79% stenosis. Left mid ICA has a critical 80-99% stenosis. Continue pts. HTN and HLD medications. Continuous cardiac telemetry. Qualifiers: Coronary Disease-Associated Artery/Lesion type: [place] artery [place] vs. transplanted heart: [place] heart Associated angina: angina presence unspecified Qualified Code(s): I25.10 - Atherosclerotic heart disease of [place] coronary artery without angina pectoris (3) CHF (congestive heart failure) Current Visit: Yes Status: Chronic Assessment and plan: Hx of chronic CHF. Stable. Patient shows no signs of edema or fluid overload on exam. 1.5L daily fluid restriction. Monitor I&O. Qualifiers: Heart failure type: systolic Heart failure chronicity: chronic Qualified Code(s): I50.22 - Chronic systolic (congestive) heart failure (4) COPD (chronic obstructive pulmonary disease) Current Visit: Yes Status: Chronic Assessment and plan: Hx of chronic COPD. Stable. Supplemental O2 w/titration and SpO2 monitoring. Qualifiers: COPD type: unspecified COPD Qualified Code(s): J44.9 - Chronic obstructive pulmonary disease, unspecified (5) DM (diabetes mellitus), type 2 Current Visit: Yes Status: Chronic Assessment and plan: Hx of chronic DM controlled w/oral anti-hyperglycemic medications. Hold oral medications and administer low-dose correction SS insulin and BG checks. BG checks and SS insulin every 6 hour patient is nothing by mouth. BG checks and SS insulin before meals at bedtime when patient is no longer nothing by mouth. Hypoglycemic protocol ordered. A1c in a.m. labs. Qualifiers: Diabetes mellitus assisted insulin use: without assisted use Diabetes mellitus complication status: with other specified complication Qualified Code(s): E11.69 - Type 2 diabetes mellitus with other specified complication (6) Chronic back pain Current Visit: Yes Status: Chronic Assessment and plan: Hx of chronic back pain with right-sided sciatica. Dilaudid ordered once to see how pts. pain responds. Monitor and administer pain medications as needed being mindful of pts. cirrhosis. Falls/safety precautions and up with assist. Qualifiers: Back pain location: low back pain Back pain laterality: bilateral Sciatica presence: with sciatica Sciatica laterality: sciatica of right side Qualified Code(s): M54.41 - Lumbago with sciatica, right side; G89.29 - Other chronic pain (7) Alcoholism Current Visit: Yes Status: Chronic Assessment and plan: Hx of chronic alcoholism. Patient reports he quit prior to previous admission. (8) Cirrhosis Current Visit: Yes Status: Chronic Assessment and plan: Hx of alcoholic cirrhosis. Patient reports he stopped drinking prior to previous admission. AST 19 and ALT 18 on admission. Monitor f/u labs. Qualifiers: Hepatic cirrhosis type: alcoholic cirrhosis Ascites presence: unspecified Qualified Code(s): K70.30 - Alcoholic cirrhosis of liver without ascites (9) GERD (gastroesophageal reflux disease) Current Visit: Yes Status: Chronic Assessment and plan: Hx of chronic GERD. Continue pts. Prilosec daily. Qualifiers: Esophagitis presence: esophagitis presence not specified Qualified Code(s): K21.9 - Gastro-esophageal reflux disease without esophagitis (10) Tobacco abuse Current Visit: Yes Status: Chronic Assessment and plan: Hx of chronic tobacco abuse. Pt. reports he smoked 1.5 PPD prior to previous admission and now smokes .5 PPD. Will require nicotine patch post-Cardiology intervention. (11) DVT prophylaxis Current Visit: Yes Status: Acute Assessment and plan: Bilateral SCDs on LEs for DVT prophylaxis d/t possible C today. - Time Spent With Patient Total time spent is greater than 50% in coordination of care (as documented) at patient's floor/unit and/or counseling patient: Greater than 35 minutes
[2019-01-20] MEDS ORDERED: Ipratropium/Albuterol Neb 3 ML IH PRN (05:21)
[2019-01-20] MEDS ORDERED: D5% in Water 1,000 ML IVC PRN (05:23)
[2019-01-20] MEDS ORDERED: Dextrose Gel 15 GM/37.5 ML TUBE PO PRN ×2 (05:23)
[2019-01-20] MEDS ORDERED: *HR* Dextrose 50 % in Water (Syg) 50 ML SYRINGE IVP PRN (05:23)
[2019-01-20 05:51] LABS: Hematocrit 30.8 % (37.5-50.1); Hemoglobin 9.7 g/dL (12.9-16.9); Mean Corpuscular HGB Conc 31.5 g/dL (31.6-35.5); Mean Corpuscular Hemoglobin 28.7 pg (28.0-33.3); Mean Corpuscular Volume 91.1 fL (83.0-100.0); Mean Platelet Volume 11.1 fL (9.4-12.4); Platelet Count 206 K/mcL (140-400); Red Blood Count 3.38 M/mcL (4.19-5.50); Red Cell Distribution Width 15.9 % (11.5-14.5); White Blood Count 9.9 K/mcL (4.3-11.1)
[2019-01-20 06:09] LABS: BUN/Creatinine Ratio 16 (6-26); Blood Urea Nitrogen 21 mg/dL (6-20); Calcium 8.9 mg/dL (8.6-10.3); Carbon Dioxide 27 mEq/L (23-29); Chloride 100 mEq/L (98-107); Chol/HDL Ratio 4.6 (0-4.9); Cholesterol 133 mg/dL (< 200); Glucose 109 mg/dL (70-105); HDL Cholesterol 29 mg/dL (40-59); LDL Cholesterol,Calculated 71 mg/dL (0-99); Magnesium 1.6 mg/dL (1.6-2.6); Osmolality,Calculated 286 (280-300); Potassium 3.9 mEq/L (3.5-5.1); Sodium 136 mEq/L (136-145); Triglycerides 166 mg/dL (< 150); eGFR For African Americans > 60 (> 60); eGFR For Non-African Americans 58 (> 60)
[2019-01-20] MEDS: Insulin LISPRO 300 UNITS/3 ML VIAL SQ SCH ×8 (07:50→23:50)
[2019-01-20 09:13] LABS: Estimated Average Glucose 140 mg/dl
[2019-01-20] MEDS: Iron Polysaccharide Complex 150 MG CAPSULE PO SCH ×2 (09:57→22:35)
[2019-01-20] MEDS: Thiamine (B-1) 100 MG TABLET PO SCH (09:57)
[2019-01-20] MEDS: Aspirin 81 MG TAB.CHEW PO SCH (09:57)
[2019-01-20] MEDS: Folic Acid 1 MG TABLET PO SCH (09:57)
[2019-01-20] MEDS: Nicotine 14 MG PATCH.TD24 TD SCH (10:03)
[2019-01-20] MEDS ORDERED: Perflutren Lipid Microsphere 1.3 ML in 0.9 % Sodium Chloride 8.7 ML IVP ONE (10:10)
[2019-01-20] MEDS: Tiotropium 18 MCG inhalation IH SCH (10:27)
--- NOTE | 2019-01-20 12:27 | Cardiology Consult Note ---
<LamonteTeri Manuelito - Last Filed: 01/20/19 12:20> Date of Encounter: 01/20/19 Time of Encounter: 09:00 Assessment and Plan (1) Abnormal stress test Current Visit: Yes Status: Acute Per cardiology: -Stress test 01/14/19 with medium sized, moderate intensity inferior, inferolateral, and apex reversible perfusion defect, suggestive of ischemia. -Recent OK without LHC due to patient was not a candidate with active bleeding, troponin 4.47 12/20/18. -TTE 11/2018 with LVEF 50-55%, SMWA noted, which were new from previous. -Patient denies chest pain, increased shortness of breath, or increased fatigue. -Troponin negative. -ECG with non-specific T wave abnormalities noted. -Of note, hemoglobin down trending. -Will repeat TTE. -Monitor hemoglobin closely. -Continue ASA, statin, BB. -Can consider LHC pending TTE and hemoglobin trend. Discussed at length with pateint and family regarding high risk of bleeding and other risks of LHC. P ateint and family state understanding and wish to proceed with LHC, if reasonable. (2) Diastolic congestive heart failure, NYHA class 2 Current Visit: Yes Status: Chronic Per cardiology: -Known diastolic CHF, reports NYHA class II symptoms. -TTE as above. -Euvolemic on exam. -ON lasix at home. -Continue home lasix. -CHF education reviewed with patient. Qualifiers: Congestive heart failure chronicity: chronic Qualified Code(s): I50.32 - Chronic diastolic (congestive) heart failure (3) Anemia Current Visit: Yes Status: Chronic Per cardiology: -Known anemia. -Hemoglobin down trending today. -Known history of GI bleeding, esophageal varices. -Reports black stools, however states chronic due to iron supplementation. -Will order stool OB. -Monitor hemoglobin. Qualifiers: Anemia type: unspecified type Qualified Code(s): D64.9 - Anemia, unspecified Discussion w patient/family: The assessment and plan as outlined above was discussed with the patient and/or family members who expressed understanding and agreement. All questions were answered. Thank you for involving us in the care of your patient. Please call with any questions. Discussed and reviewed with . History of Present Illness Consult date: 01/19/19 Requesting physician: José Luis Victoria Consult reason: abnormal stress test Chief complaint: abnormal stress test History of present illness: Mr. Reynolds is a 58 year old male with a relevant PMH of ETOH abuse reported 10-20 beers per day since age 8--stopped 3 weeks ago, cirrhosis, esophageal varices, HTN, CVA, asthma, obesity, COPD, DM, HLD, [place], who presented to [facility] with concerns of abnormal stress test. Patient was recently admitted and underwent stress, however patient signed out AMA prior to stress test resulting. Patient states he saw his PCP yesterday and was told his stress test was abnormal, so he presented to ER. Patient denies chest pain. Denies shortness of breath. Denies edema. Patient reports he was just concerned about stress test. Past Med Surg Social Fam HX - Past Medical History Attestation: Yes The following information was validated with the patient. Source: patient, old records reviewed Medical history: cirrhosis, CHF, COPD, myocardial infarction, other Additional medical history: alcoholic cirrhosis Psychiatric history: depression - Past Surgical History Surgical History: tonsillectomy, other Additional surgical history: tonsillectomy. EGD. colonoscopy - Social History Smoking Status: Current every day smoker Packs per day: 1/2 PPD Smokeless Tobacco Status: No Alcohol use: none Drug use: none - Family History Mother Adopted: No Race: Family Member Ethnicity: Non- Living Status: Age at : 86 Cause of : Old age Hx Family Endocrine Disorder: Yes (DM) Father Race: Family Member Ethnicity: Non- Living Status: Age at : 40 Cause of : Alcoholism Hx Family Endocrine Disorder: Yes (DM) Hx Family Psychosocial Disorders: Yes (Alcoholism) Brother Race: Family Member Ethnicity: Non- Living Status: Age at : 51 Cause of : Unknown Sister Race: Family Member Ethnicity: Non- Living Status: Still Living Hx Family Medical Disorders: No Medications and Allergies Metoprolol [Lopressor] 25 mg PO BID 04/18/15 [History] Tamsulosin [Flomax] 0.4 mg PO DAILY 06/23/15 [History] Thiamine Mononitrate [Vitamin B-1] 100 mg PO DAILY 06/23/15 [History] Albuterol Sulfate [Ventolin Hfa] 2 puff IH Q6H PRN 12/21/18 [History] Aspirin 81 mg PO DAILY 12/21/18 [History] Cetirizine HCl [24Hour Allergy] 10 mg PO DAILY PRN 12/21/18 [History] Fluticasone Propionate Nasal [Flonase] 2 spray NS DAILY PRN 12/21/18 [History] Folic Acid 1 mg PO DAILY 12/21/18 [History] GlipiZIDE XL (24 HR) [Glucotrol XL] 10 mg PO BID 12/21/18 [History] Levomefolate/B6/B12/Algal Oil [Metanx Capsule] 1 cap PO DAILY 12/21/18 [History] Lisinopril [Zestril] 10 mg PO DAILY 12/21/18 [History] Multivit-Min/FA/Lycopen/Lutein [Centrum Silver Men Tablet] 1 tab PO DAILY 12/21/18 [History] Omeprazole [PriLOSEC] 40 mg PO DAILY 12/21/18 [History] Umeclidinium [place] [Incruse Ellipta] 1 puff IH HS 12/21/18 [History] metFORMIN [Glucophage] 500 mg PO BID 12/21/18 [History] Atorvastatin [Lipitor] 20 mg PO HS tablet 12/28/18 [Rx] Ipratropium/Albuterol Neb [Duoneb] 3 ml IH [id number] PRN #0 inhsol 12/28/18 [Rx] Iron Polysaccharide Complex [Ferric X-150] 150 mg PO BID #60 capsule 12/28/18 [Rx] Nicotine Patch [Nicoderm] 21 mg TD DAILY patch.td24 12/28/18 [Rx] HYDROcodone/Acet 5/325 mg [[place] 5-325 mg] 1 tab PO Q6HR PRN 01/12/19 [History] Polyethylene Glycol 3350 [MiraLAX] 17 gm PO DAILY PRN 01/12/19 [History] Tramadol HCl [Ultram] 100 mg PO QID PRN 01/12/19 [History] Amoxicillin/Clavulanate [Augmentin] 875 mg PO BIDWM #14 tablet 01/15/19 [Rx] Furosemide [Lasix] 40 mg PO DAILY #30 tablet 01/15/19 [Rx] Allergy/AdvReac Type Severity Reaction Status Date / Time No Known Allergies Allergy Verified 01/19/19 16:24 All Systems Review: The remainder of the systems were reviewed and are negative - Cardiovascular Cardiovascular: as per HPI, other (Abnormal testing) Physical Examination Vital Signs, Last 4 Hours Temp Pulse Resp BP Pulse Ox 01/20/19 11:11 98.0 F 79 16 129/60 98 01/20/19 10:27 18 96 General: Conversant, No Apparent Distress HEENT: Atraumatic, Normocephaly, Mucus Membranes Moist Neck: No JVD, Normal carotid pulses Cardiac: Reg Rate and Rhythm, Normal S1 and S2, No Murmur Lungs: Normal Breath Sounds, No Wheeze, Rales, Rhonchi Neuro: Alert and responsive, No focal deficits noted Abdomen: Soft, Non-Tender Skin: No rashes noted on visualized skin Musculoskeletal: No Chest Wall Tenderness Extremities: No Clubbing, No Cyanosis, No Edema, Normal Pulses Results 01/20/19 05:24 01/20/19 05:24 Lab Results Impressions Chest X-Ray 01/19/19 00:00 IMPRESSION: Mild pulmonary vascular congestion. D/ / Angel Paul MD / Angel Paul MD Interpreting Provider: Angel Paul MD Echocardiogram Limited Views 01/20/19 08:54 Impressions: LVEF 55-60%. Mildly dilated left ventricle. Normal LV wall thickness and function. Left Ventricular Wall Motion: Rest Echo Findings All wall segments showed normal motion. Findings: Study Quality * Technically adequate exam. ECG Findings * Normal sinus rhythm. Left Ventricle * LVEF 55-60%. * Mildly dilated left ventricle. * Normal LV wall thickness and function. Active Medications Albuterol/Ipratropium (Duoneb) 3 ml IH [id number] PRN PRN Reason: Shortness Of Breath/Wheezing Stop: 07/22/19 05:22 Aspirin (Aspirin) 81 mg PO DAILY SATHISH Stop: 07/22/19 09:01 Last Admin: 01/20/19 09:57 Dose: 81 mg Documented by: Atorvastatin Calcium (Lipitor) 20 mg PO HS SATHISH Stop: 07/22/19 21:01 Dextrose/Water (Dextrose 50% (Syg)) 25 ml IVP AD PRN PRN Reason: Hypoglycemia Stop: 07/22/19 05:24 Folic Acid (Folic Acid) 1 mg PO DAILY [facility] Stop: 07/22/19 09:01 Last Admin: 01/20/19 09:57 Dose: 1 mg Documented by: Glucagon (Glucagen) 1 mg IM ONCE PRN PRN Reason: Hypoglycemia Stop: 07/22/19 05:24 Glucose (Gluctose) 15 gm PO ONCE PRN PRN Reason: Hypoglycemia Stop: 07/22/19 05:24 Glucose (Gluctose) 30 gm PO ONCE PRN PRN Reason: Hypoglycemia Stop: 07/22/19 05:24 Dextrose (Dextrose 5%) 1,000 mls @ 100 mls/hr IVC .Q10H PRN PRN Reason: HYPOGLYCEMIA Stop: 07/22/19 05:24 Insulin Human Lispro (Humalog) 0 units SQ Q6HR [facility]; Protocol Stop: 07/22/19 06:01 Last Admin: 01/20/19 07:50 Dose: Not Given Documented by: Insulin Human Lispro (Humalog) 0 units SQ HS [facility]; Protocol Stop: 07/22/19 21:01 Insulin Human Lispro (Humalog) 0 units SQ TIDAC [facility]; Protocol Stop: 07/22/19 07:31 Last Admin: 01/20/19 08:41 Dose: Not Given Documented by: Metoprolol Tartrate (Lopressor) 25 mg PO BID [facility] Stop: 07/22/19 09:01 Last Admin: 01/20/19 09:57 Dose: 25 mg Documented by: Naloxone HCl (Narcan) 0.4 mg IVP Q2MPRN PRN PRN Reason: SEE COMMENTS Stop: 07/22/19 02:21 Nicotine (Nicoderm) 14 mg TD DAILY [facility]; Protocol Stop: 07/22/19 10:01 Last Admin: 01/20/19 10:03 Dose: 14 mg Documented by: Omeprazole (Prilosec) 40 mg PO 0630 [facility] Stop: 07/22/19 06:31 Last Admin: 01/20/19 09:57 Dose: 40 mg Documented by: Polyethylene Glycol (Miralax) 17 gm PO DAILY PRN PRN Reason: Constipation Stop: 07/22/19 05:22 Polysaccharide Iron Complex (Ferrex 150) 150 mg PO BID [facility] Stop: 07/22/19 09:01 Last Admin: 01/20/19 09:57 Dose: 150 mg Documented by: Tamsulosin HCl (Flomax) 0.4 mg PO HS [facility]; Protocol Stop: 07/22/19 21:01 Thiamine HCl (Vitamin B-1) 100 mg PO DAILY [facility] Stop: 07/22/19 09:01 Last Admin: 01/20/19 09:57 Dose: 100 mg Documented by: Tiotropium [place] (Spiriva) 18 mcg IH DAILY [facility] Stop: 07/22/19 09:01 Last Admin: 01/20/19 10:27 Dose: 18 mcg Documented by: Laboratory Tests 01/19/19 01/19/19 01/20/19 17:57 17:59 05:24 Hgb 10.6 L 9.7 L Creatinine Troponin I 0.03 01/20/19 05:24 Hgb Creatinine 1.28 Troponin I - Imaging and Cardiology Chest Xray: report reviewed Stress Test: report reviewed Echo: report reviewed - EKG Interpretation EKG results cardiology: personally reviewed (ECG with SR, HR 90. Non-specific T wave abnormalities noted.) Consult Discharge Plan - Plan Referrals: Harrison Villarreal MD [Primary Care Provider] - HAS-BLED Score - Score Abnormal liver function: Cirrhosis or Bilirubin >2x normal or AST/ALT/AP>3x normal Bleeding: Prior major bleeding or predisposition to bleeding Prior alcohol or drug usage history: Greater than or equal to 8 drinks/week Medication usage predisposing to bleeding: Antiplatelet agents, NSAIDs, Anticoagulants Score: 4 <Kortney Manuel - Last Filed: 01/20/19 13:06> Date of Encounter: 01/20/19 - Attending Attestation I examined this patient and my medical decision-making was reviewed with the REGIONAL OPERATIONS MANAGER. I agree with the documented findings, disposition and treatment plan as described. Mr. Reynolds presents out of concern for abnormal stress test that was recently performed. He denies recent chest pain or worsening dyspnea. Troponin negative. No acute ECG changes. Recent admission in November 2018 for bleeding. Endoscopy did not show active bleeding thought secondary to diverticulosis and internal hemorrhoids. Has cirrhosis and esophageal varices. Currently blood count downtrended. Patient denies active bleed but reports dark stools may be from iron supplementation. Recommend following Hgb and considering GI consult. Discussed stress test finding with the patient who asks to undergo LHC. The R/B/A of the procedure were discussed with the patient including possibility of bleeding and fatal bleeding if requiring PCI and DAPT. Patient expressed understanding and would like to think about his options. He presently is chest pain free and has normal LVEF. Assessment and Plan Discussion w patient/family: The assessment and plan as outlined above was discussed with the patient and/or family members who expressed understanding and agreement. All questions were answered. Thank you for involving us in the care of your patient. Please call with any questions. History of Present Illness History of present illness: Mr. Reynolds is a 58 year old male All Systems Review: The remainder of the systems were reviewed and are negative Physical Examination Vital Signs, Last 4 Hours Temp Pulse Resp BP Pulse Ox 01/20/19 11:11 98.0 F 79 16 129/60 98 01/20/19 10:27 18 96 Results 01/20/19 05:24 01/20/19 05:24 Lab Results 01/19/19 01/19/19 01/19/19 17:57 17:57 17:57 WBC 10.7 Hgb 10.6 L Hct 33.4 L Plt Count 226 INR 1.1 APTT 35.6 Sodium Potassium Chloride Carbon Dioxide BUN Creatinine Glucose Calcium Magnesium Total Bilirubin AST ALT Alkaline Phosphatase Troponin I B-Natriuretic Peptide 329 H Lipase 01/19/19 01/19/19 01/20/19 17:57 17:59 05:24 WBC 9.9 Hgb 9.7 L Hct 30.8 L Plt Count 206 INR APTT Sodium 133 L Potassium 4.0 Chloride 99 Carbon Dioxide 24 BUN 16 Creatinine 0.97 Glucose 196 H Calcium 9.4 Magnesium Total Bilirubin 0.3 AST 19 ALT 18 Alkaline Phosphatase 122 H Troponin I 0.03 B-Natriuretic Peptide Lipase 31 01/20/19 05:24 WBC Hgb Hct Plt Count INR APTT Sodium 136 Potassium 3.9 Chloride 100 Carbon Dioxide 27 BUN 21 H Creatinine 1.28 Glucose 109 H Calcium 8.9 Magnesium 1.6 Total Bilirubin AST ALT Alkaline Phosphatase Troponin I B-Natriuretic Peptide Lipase
--- NOTE | 2019-01-20 13:10 | Electrocardiograph Report ---
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
[2019-01-20] MEDS ORDERED: Fluticasone Propionate Nasal 50 MCG/SPRAY BOTTLE NS PRN (14:41)
[2019-01-20] MEDS: *HR* HYDROcodone/Acet 5/325 mg TABLET PO PRN ×2 (14:58→23:52)
--- NOTE | 2019-01-20 15:43 | Discharge Summary ---
- NOTES TO OUTPATIENT PROVIDER Notes to Outpatient Provider: f/u with PCP in one week. f/u with Cardiology in 5-7 days. If you get any Chest pain / chest pressure please go to nearest ER [facility], since you do need Heart Cath. Orders not resulted at time of discharge: Pending orders 01/19/19 17:58 Culture,Blood [BC] Stat 01/20/19 13:45 Occult Blood,Stool [BF] Routine Date of Encounter: 01/20/19 Time of Encounter: 15:41 - Discharge Diagnosis (1) Abnormal stress test Priority: Primary Status: Acute (2) DM (diabetes mellitus), type 2 Priority: Secondary Status: Chronic Qualifiers: Diabetes mellitus long-term insulin use: without long-term use Diabetes m ellitus complication status: with other specified complication Qualified Code(s): E11.69 - Type 2 diabetes mellitus with other specified complication (3) Tobacco abuse Priority: Secondary Status: Chronic (4) DVT prophylaxis Priority: Secondary Status: Acute (5) Cirrhosis Priority: Secondary Status: Chronic Qualifiers: Hepatic cirrhosis type: alcoholic cirrhosis Ascites presence: unspecified Qualified Code(s): K70.30 - Alcoholic cirrhosis of liver without ascites (6) Alcoholism Priority: Secondary Status: Chronic (7) CHF (congestive heart failure) Priority: Secondary Status: Chronic Qualifiers: Heart failure type: systolic Heart failure chronicity: chronic Qualified Code(s): I50.22 - Chronic systolic (congestive) heart failure (8) COPD (chronic obstructive pulmonary disease) Priority: Secondary Status: Chronic Qualifiers: COPD type: unspecified COPD Qualified Code(s): J44.9 - Chronic obstructive pulmonary disease, unspecified (9) CAD (coronary artery disease) Priority: Secondary Status: Chronic Qualifiers: Coronary Disease-Associated Artery/Lesion type: [place] artery [place] vs. transplanted heart: [place] heart Associated angina: angina presence unspecified Qualified Code(s): I25.10 - Atherosclerotic heart disease of [place] coronary artery without angina pectoris (10) Chronic back pain Priority: Secondary Status: Chronic Qualifiers: Back pain location: low back pain Back pain laterality: bilateral Sciatica presence: with sciatica Sciatica laterality: sciatica of right side Qualified Code(s): M54.41 - Lumbago with sciatica, right side; G89.29 - Other chronic pain (11) GERD (gastroesophageal reflux disease) Priority: Secondary Status: Chronic Qualifiers: Esophagitis presence: esophagitis presence not specified Qualified Code(s): K21.9 - Gastro-esophageal reflux disease without esophagitis Hospital course: Mr. Reynolds is a 58 year old male with a relevant PMH of ETOH abuse reported 10-20 beers per day since age 8--stopped 3 weeks ago, cirrhosis, esophageal varices with GI bleed, HTN, CVA, asthma, obesity, COPD, DM, HLD, [place], who presented to [facility] since he had an out pt abnormal stress test. Patient was recently admitted and underwent stress, however patient signed out AMA prior to stress test resulting. Patient states he saw his PCP yesterday and was told his stress test was abnormal, so he presented to ER. Patient denies chest pain. Denies shortness of breath. Denies edema. Patient reports he was just concerned about stress test. He was admitted in the hospital and placed him on phototypesetting equipment monitor. His initial Trop 0.03. He denied any Chest pain what so ever. Pt stated he never had CP. He was evaluated by Hair Machine Operator who wanted to monitor his Hb closely for now before to do any LHC since he does have recently dx esophageal varices which put him on high risk for bleeding. Pt do not want to stay in the hospital now, he wanted leave AMA. I did explained to him he needs this diagnostic LHC to find out where he had the lesion, if he wont take care of it he may with heart attack. However he still decided to leave AMA. Pt did mention if he gets CP m he will come back to ER. - Time Spent with Patient Total time spent providing and/or coordinating discharge services: - Discharge Medications Prescriptions: New Nicotine Patch [Nicoderm] 14 mg TD DAILY #30 patch.td24 Continued Metoprolol [Lopressor] 25 mg PO BID Tamsulosin [Flomax] 0.4 mg PO DAILY Thiamine Mononitrate [Vitamin B-1] 100 mg PO DAILY Albuterol Sulfate [Ventolin Hfa] 2 puff IH Q6H PRN PRN Reason: Shortness Of Breath Aspirin 81 mg PO DAILY Cetirizine HCl [24Hour Allergy] 10 mg PO DAILY PRN PRN Reason: Allergy Symptoms Fluticasone Propionate Nasal [Flonase] 2 spray NS DAILY PRN PRN Reason: Allergy Symptoms Folic Acid 1 mg PO DAILY GlipiZIDE XL (24 HR) [Glucotrol XL] 10 mg PO BID Levomefolate/B6/B12/Algal Oil [Metanx Capsule] 1 cap PO DAILY Lisinopril [Zestril] 10 mg PO DAILY metFORMIN [Glucophage] 500 mg PO BID Omeprazole [PriLOSEC] 40 mg PO DAILY Umeclidinium [place] [Incruse Ellipta] 1 puff IH HS Multivit-Min/FA/Lycopen/Lutein [Centrum Silver Men Tablet] 1 tab PO DAILY Ipratropium/Albuterol Neb [Duoneb] 3 ml IH [id number] PRN #0 inhsol PRN Reason: Shortness Of Breath/Wheezing Iron Polysaccharide Complex [Ferric X-150] 150 mg PO BID #60 capsule Atorvastatin [Lipitor] 20 mg PO HS tablet Nicotine Patch [Nicoderm] 21 mg TD DAILY patch.td24 Polyethylene Glycol 3350 [MiraLAX] 17 gm PO DAILY PRN PRN Reason: Constipation Tramadol HCl [Ultram] 100 mg PO QID PRN PRN Reason: Mild To Moderate Pain HYDROcodone/Acet 5/325 mg [[place] 5-325 mg] 1 tab PO Q6HR PRN PRN Reason: Severe Pain Amoxicillin/Clavulanate [Augmentin] 875 mg PO BIDWM #14 tablet Furosemide [Lasix] 40 mg PO DAILY #30 tablet Home Medications: Metoprolol [Lopressor] 25 mg PO BID 04/18/15 [History] Tamsulosin [Flomax] 0.4 mg PO DAILY 06/23/15 [History] Thiamine Mononitrate [Vitamin B-1] 100 mg PO DAILY 06/23/15 [History] Albuterol Sulfate [Ventolin Hfa] 2 puff IH Q6H PRN 12/21/18 [History] Aspirin 81 mg PO DAILY 12/21/18 [History] Cetirizine HCl [24Hour Allergy] 10 mg PO DAILY PRN 12/21/18 [History] Fluticasone Propionate Nasal [Flonase] 2 spray NS DAILY PRN 12/21/18 [History] Folic Acid 1 mg PO DAILY 12/21/18 [History] GlipiZIDE XL (24 HR) [Glucotrol XL] 10 mg PO BID 12/21/18 [History] Levomefolate/B6/B12/Algal Oil [Metanx Capsule] 1 cap PO DAILY 12/21/18 [History] Lisinopril [Zestril] 10 mg PO DAILY 12/21/18 [History] Multivit-Min/FA/Lycopen/Lutein [Centrum Silver Men Tablet] 1 tab PO DAILY 12/21/18 [History] Omeprazole [PriLOSEC] 40 mg PO DAILY 12/21/18 [History] Umeclidinium [place] [Incruse Ellipta] 1 puff IH HS 12/21/18 [History] metFORMIN [Glucophage] 500 mg PO BID 12/21/18 [History] Atorvastatin [Lipitor] 20 mg PO HS tablet 12/28/18 [Rx] Ipratropium/Albuterol Neb [Duoneb] 3 ml IH [id number] PRN #0 inhsol 12/28/18 [Rx] Iron Polysaccharide Complex [Ferric X-150] 150 mg PO BID #60 capsule 12/28/18 [Rx] Nicotine Patch [Nicoderm] 21 mg TD DAILY patch.td24 12/28/18 [Rx] HYDROcodone/Acet 5/325 mg [[place] 5-325 mg] 1 tab PO Q6HR PRN 01/12/19 [History] Polyethylene Glycol 3350 [MiraLAX] 17 gm PO DAILY PRN 01/12/19 [History] Tramadol HCl [Ultram] 100 mg PO QID PRN 01/12/19 [History] Amoxicillin/Clavulanate [Augmentin] 875 mg PO BIDWM #14 tablet 01/15/19 [Rx] Furosemide [Lasix] 40 mg PO DAILY #30 tablet 01/15/19 [Rx] Nicotine Patch [Nicoderm] 14 mg TD DAILY #30 patch.td24 01/20/19 [Rx] Allergies/Adverse Reactions: Allergy/AdvReac Type Severity Reaction Status Date / Time No Known Allergies Allergy Verified 01/19/19 16:24 Date of admission: 01/19/19 23:31 Primary care physician: Harrison Villarreal Consults: 01/19/19 20:59 Consult to Cardiology [CONS] Stat Comment: Consulting Provider: Cardiology [place] Reason for Consult: Abnormal stress test Dr. Mena Time Notified: 20:59 Call Completed: Yes 01/20/19 02:22 Consult to Occupational Therapy [CONS] Routine Comment: Evaluate, develop and implement POC Reason for Consult: Patient has hx of chronic back pain and sciatica. Reports difficulty w/ambulation. Please assess for ambulation stre ngth, safety, stability, and possible home assistive/rehabilitation needs for postdischarge planning. Does patient have active BEDREST order?: No Is patient medically & hemodynamically stable?: Yes Patient assessed for mobility or mobilized this visit?: No Consult to Program Or Project Administrator [CONS] Routine Reason for SW Consult: Please assess patient for possible home needs for post-discharge planning. 01/20/19 02:23 Consult to Physical Therapy [CONS] Routine Comment: Evaluate, develop and implement POC Reason for Consult: Patient has hx of chronic back pain and sciatica. Reports difficulty w/ambulation. Please assess for ambulation strength, safety, stability, and possible home assistive/rehabilitation needs for postdischarge planning. Does patient have active BEDREST order?: No Is patient medically & hemodynamically stable?: Yes Patient assessed for mobility or mobilized this visit?: No - Constitutional Vitals: Temp Pulse Resp BP Pulse Ox 98.0 F 79 16 129/60 98 01/20/19 11:11 01/20/19 11:11 01/20/19 11:11 01/20/19 11:11 01/20/19 11:11 General appearance: Present: cooperative, A&O X 3, morbidly obese, pleasant, answers questions appropriately Exam: Gen: Alert, awake, Oriented to time,place and person Chest: Diminished breath sounds B/L, No wheezing, No crackles, No rales Heart: S1S2+ RRR No murmurs Abd: Soft, NT, BS +, No organomegaly Ext: No edema, pulses are palpable, No calf tenderness Neuro : No acute focal neuro deficits noticed Skin: No rash. - Patient Status Disposition: Left Against Medical Advice Condition: Fair Overall status at discharge: patient is back to baseline - Discharge Instructions Follow Up With: Harrison Villarreal MD [Primary Care Provider] - Kortney Manuel DO [Partnered Physician] - - Diet and Activity Activity: increase activity as tolerated Diet: low salt diet
--- NOTE | 2019-01-20 16:34 | Internal Med Progress Note ---
Hospitalist Progress Note - Encounter Date of Encounter: 01/20/19 Time of Encounter: 16:31 - Subjective Interval History: Mr. Reynolds is a 58 year old male with a relevant PMH of ETOH abuse reported 10-20 beers per day since age 8--stopped 3 weeks ago, cirrhosis, esophageal varices with GI bleed, HTN, CVA, asthma, obesity, COPD, DM, HLD, DC, who presented to [facility] since he had an out pt abnormal stress test. Patient was recently admitted and underwent stress, however patient signed out AMA prior to stress test resulting. Patient states he saw his PCP yesterday and was told his stress test was abnormal, so he presented to ER. Patient denies chest pain. Denies shortness of breath. Denies edema. Patient reports he was just concerned about stress test. He was admitted in the hospital and placed him on residential monitor. His initial Trop 0.03. He denied any Chest pain what so ever. Pt stated he never had CP. He was evaluated by Sales Director who wanted to monitor his Hb closely for now before to do any LHC since he does have recently dx esophageal varices which put him on high risk for bleeding. Pt do not want to stay in the hospital now, he wanted leave AMA. I did explained to him he needs this diagnostic LHC to find out where he had the lesion. He changed his mind and wanted to stay in the hospital now. - Exam Vitals: Temp Pulse Resp BP Pulse Ox 98.0 F 79 16 129/60 98 01/20/19 11:11 01/20/19 11:11 01/20/19 11:11 01/20/19 11:11 01/20/19 11:11 Exam: Gen: Alert, awake, Oriented to time,place and person Chest: Diminished breath sounds B/L, No wheezing, No crackles, No rales Heart: S1S2+ RRR No murmurs Abd: Soft, NT, BS +, No organomegaly Ext: No edema, pulses are palpable, No calf tenderness Neuro : No acute focal neuro deficits noticed Skin: No rash. - Assessment and Plan (1) Abnormal stress test Current Visit: Yes Status: Acute Assessment and Plan: Cont on tele talked to card .. scheduled for LHC in AM Cont ASA for now cont home med Statin and BB (2) DM (diabetes mellitus), type 2 Current Visit: Yes Status: Chronic Assessment and Plan: Stable BS on ISS ADA diet (3) Anemia Current Visit: Yes Status: Chronic Assessment and Plan: cont close monitoring chronic anemia stable Hb for now (4) Esophageal varices Current Visit: No Status: Acute Assessment and Plan: s/p EGD in 10/11 no signs of active bleeding now continue close monitoring (5) Tobacco abuse Current Visit: Yes Status: Chronic Assessment and Plan: Counseled to quit smoking placed on nicotine patch (6) DVT prophylaxis Current Visit: Yes Status: Acute Assessment and Plan: Bilateral SCDs on LEs for DVT prophylaxis d/t possible LHC today. (7) Cirrhosis Current Visit: Yes Status: Chronic Assessment and Plan: Hx of alcoholic cirrhosis. Patient reports he stopped drinking prior to previous admission. AST 19 and ALT 18 on admission. Continue close monitoring (8) Alcoholism Current Visit: Yes Status: Chronic Assessment and Plan: Hx of chronic alcoholism. Patient reports he quit prior to previous admission. (9) CHF (congestive heart failure) Current Visit: Yes Status: Chronic Assessment and Plan: Chronic diastolic CHF not in exacerbation close monitoring (10) COPD (chronic obstructive pulmonary disease) Current Visit: Yes Status: Chronic Assessment and Plan: Hx of chronic COPD. Stable not in exacerbation resumed home inhalers (11) CAD (coronary artery disease) Current Visit: Yes Status: Chronic Assessment and Plan: Continue home medications scheduled for heart cath In the morning (12) Chronic back pain Current Visit: Yes Status: Chronic Assessment and Plan: Chronic narcotic dependent resumed all home medications (13) GERD (gastroesophageal reflux disease) Current Visit: Yes Status: Chronic Assessment and Plan: Continue PPI - Time Spent with Patient Total time spent is greater than 50% in coordination of care (as documented) at patient's floor/unit and/or counseling patient: Internal Medicine: Result - Labs CBC & Chem 7: 01/20/19 05:24 01/20/19 05:24 Labs: Short CBC 01/19/19 01/20/19 Range/Units 17:57 05:24 WBC 10.7 9.9 (4.3-11.1) K/mcL Hgb 10.6 L 9.7 L (12.9-16.9) g/dL Hct 33.4 L 30.8 L (37.5-50.1) % Plt Count 226 206 (140-400) K/mcL Neutrophils # 8.2 (1.6-8.9) K/mcL BMP 01/19/19 01/20/19 17:59 05:24 Sodium 133 L 136 Potassium 4.0 3.9 Chloride 99 100 Carbon Dioxide 24 27 BUN 16 21 H Creatinine 0.97 1.28 Glucose 196 H 109 H Calcium 9.4 8.9 Cardiac Enzymes 01/19/19 Range/Units 17:59 Troponin I 0.03 (< 0.04) ng/mL Liver Function 01/19/19 Range/Units 17:59 Total Bilirubin 0.3 (0.3-1.0) mg/dL Direct Bilirubin 0.1 (0.0-0.2) mg/dL AST 19 (13-39) Units/L ALT 18 (7-52) Units/L Alkaline Phosphatase 122 H (34-104) Units/L Albumin 3.8 (3.5-5.7) g/dL Urine 01/19/19 Range/Units 19:16 Urine Color Yellow (Yellow) Urine Clarity Clear (Clear) Urine pH 6.0 (5.0-8.0) pH Units Ur Specific Lindsay 1.016 (1.010-1.025) Urine Protein Negative (Neg-Trace) mg/dL Urine Glucose (UA) Normal (Normal) mg/dL - ABG Interpretation ABG results: PT/INR, D-dimer PT 12.1 Seconds (9.4-12.1) 01/19/19 17:57 - Impressions Impressions Chest X-Ray 01/19/19 00:00 IMPRESSION: Mild pulmonary vascular congestion. D/ / Angel Paul MD / Angel Paul MD Interpreting Provider: Angel Paul MD Echocardiogram Limited Views 01/20/19 08:54 Impressions: LVEF 55-60%. Mildly dilated left ventricle. Normal LV wall thickness and function. Left Ventricular Wall Motion: Rest Echo Findings All wall segments showed normal motion. Findings: Study Quality * Technically adequate exam. ECG Findings * Normal sinus rhythm. Left Ventricle * LVEF 55-60%. * Mildly dilated left ventricle. * Normal LV wall thickness and function. Consult Discharge Plan - Plan Instructions: Nicotine (Absorbed through the skin), Chest Pain (DC) Referrals: Harrison Villarreal MD [Primary Care Provider] - (Please contact our office for a follow-up appointment. ) Kortney Manuel DO [Partnered Physician] - (An appointment has been requested.) Prescriptions: Nicotine Patch [Nicoderm] 14 mg TD DAILY #30 patch.td24 (2) DM (diabetes mellitus), type 2 Qualifiers: Diabetes mellitus shelter insulin use: without shelter use Diabetes mellitus complication status: with other specified complication Qualified Code(s): E11.69 - Type 2 diabetes mellitus with other specified complication (3) Anemia Qualifiers: Anemia type: unspecified type Qualified Code(s): D64.9 - Anemia, unspecified (4) Esophageal varices Qualifiers: Esophageal varices type: secondary Esophageal varices bleeding: with bleeding Qualified Code(s): I85.11 - Secondary esophageal varices with bleeding (7) Cirrhosis Qualifiers: Hepatic cirrhosis type: alcoholic cirrhosis Ascites presence: unspecified Qualified Code(s): K70.30 - Alcoholic cirrhosis of liver without ascites (9) CHF (congestive heart failure) Qualifiers: Heart failure type: systolic Heart failure chronicity: chronic Qualified Code(s): I50.22 - Chronic systolic (congestive) heart failure (10) COPD (chronic obstructive pulmonary disease) Qualifiers: COPD type: unspecified COPD Qualified Code(s): J44.9 - Chronic obstructive pulmonary disease, unspecified (11) CAD (coronary artery disease) Qualifiers: Coronary Disease-Associated Artery/Lesion type: [place] artery [place] vs. transplanted heart: [place] heart Associated angina: angina presence unspecified Qualified Code(s): I25.10 - Atherosclerotic heart disease of [place] coronary artery without angina pectoris (12) Chronic back pain Qualifiers: Back pain location: low back pain Back pain laterality: bilateral Sciatica presence: with sciatica Sciatica laterality: sciatica of right side Qualified Code(s): M54.41 - Lumbago with sciatica, right side; G89.29 - Other chronic pain (13) GERD (gastroesophageal reflux disease) Qualifiers: Esophagitis presence: esophagitis presence not specified Qualified Code(s): K21.9 - Gastro-esophageal reflux disease without esophagitis
[2019-01-21 01:29] LABS: Hematocrit 32.1 % (37.5-50.1); Hemoglobin 10.2 g/dL (12.9-16.9); Mean Corpuscular HGB Conc 31.8 g/dL (31.6-35.5); Mean Corpuscular Hemoglobin 28.8 pg (28.0-33.3); Mean Corpuscular Volume 90.7 fL (83.0-100.0); Mean Platelet Volume 11.5 fL (9.4-12.4); Platelet Count 212 K/mcL (140-400); Red Blood Count 3.54 M/mcL (4.19-5.50); Red Cell Distribution Width 15.7 % (11.5-14.5); White Blood Count 8.7 K/mcL (4.3-11.1)
[2019-01-21 01:46] LABS: % Iron Saturation 24 % (20-55); BUN/Creatinine Ratio 15 (6-26); Blood Urea Nitrogen 15 mg/dL (6-20); Calcium 9.2 mg/dL (8.6-10.3); Carbon Dioxide 27 mEq/L (23-29); Chloride 101 mEq/L (98-107); Glucose 184 mg/dL (70-105); Iron 73 mcg/dL (65-175); Osmolality,Calculated 286 (280-300); Potassium 4.2 mEq/L (3.5-5.1); Sodium 135 mEq/L (136-145); Transferrin 217 mg/dL (203-362); eGFR For African Americans > 60 (> 60); eGFR For Non-African Americans > 60 (> 60)
[2019-01-21] MEDS: Insulin LISPRO 300 UNITS/3 ML VIAL SQ SCH ×7 (05:53→21:00)
[2019-01-21] MEDS ORDERED: Nicotine 21 MG PATCH.TD24 TD SCH (09:00)
[2019-01-21] MEDS: Iron Polysaccharide Complex 150 MG CAPSULE PO SCH ×2 (09:51→20:59)
[2019-01-21] MEDS: Furosemide 40 MG TABLET PO SCH (09:51)
[2019-01-21] MEDS: Aspirin 81 MG TAB.CHEW PO SCH (09:51)
[2019-01-21] MEDS: Folic Acid 1 MG TABLET PO SCH (09:51)
[2019-01-21] MEDS: Thiamine (B-1) 100 MG TABLET PO SCH (09:51)
[2019-01-21] MEDS: Tiotropium 18 MCG inhalation IH SCH (10:07)
[2019-01-21] MEDS: *HR* HYDROcodone/Acet 5/325 mg TABLET PO PRN ×2 (10:11→17:14)
--- NOTE | 2019-01-21 10:24 | Event Note ---
Date of Encounter: 01/21/19 Time of Encounter: 10:00 - Cardiology Event Note Discussed and reviewed with patient regarding LHC vs medical management. Educated on risk of major bleeding with PCI requiring dual anti-platelet therapy. Patient states understanding and wishes to proceed with LHC. Risks versus benefits of LHC explained to patient who states understanding and agreeable to proceed. Further recs pending LHC. HAS-BLED Score - Score Abnormal liver function: Cirrhosis or Bilirubin >2x normal or AST/ALT/AP>3x normal Bleeding: Prior major bleeding or predisposition to bleeding Prior alcohol or drug usage history: Greater than or equal to 8 drinks/week Medication usage predisposing to bleeding: Antiplatelet agents, NSAIDs, Anticoagulants Score: 4
[2019-01-21] MEDS ORDERED: *HR* Heparin 10,000 UNIT/10 ML VIAL ONE (10:32)
[2019-01-21] MEDS ORDERED: Heparin 1,000 UNITS/500 mL 500 ML ONE (10:32)
[2019-01-21] MEDS ORDERED: Nitroglycerin 1,000 MCG/10 ML VIAL IV ONE (10:32)
[2019-01-21] MEDS ORDERED: 0.9 % Sodium Chloride 2,000 ML ONE (10:32)
[2019-01-21] MEDS ORDERED: Iopamidol 125 ML INFUS..BTL ONE ×2 (10:36→12:21)
[2019-01-21] MEDS ORDERED: Verapamil 5 MG/2 ML VIAL ONE (10:54)
[2019-01-21] MEDS ORDERED: *HR* Midazolam HCl 2 MG/2 ML VIAL ONE (12:05)
--- NOTE | 2019-01-21 12:08 | Pre-Sedation Evaluation ---
Pre-sedation evaluation - Pre-sedation checklist Date of procedure: 01/21/19 Procedure: [facility] Recent Vitals: Last Vital Signs Temp 97.8 F 01/21/19 10:35 Pulse 75 01/21/19 10:35 Resp 16 01/21/19 10:35 BP 151/77 01/21/19 10:35 Pulse Ox 94 01/21/19 10:35 H&P (including ROS) documented in medical record: Yes Previous reaction to sedatives/anesthetics: No Dietary Status: NPO after Midnight Airway Assessment: Patient can open mouth completely, TMJ function normal Dentition: poor dentition Possible difficult airway: No ASA Classification *see protocol: CLASS III-Severe systemic disease Plan of Care: Pt appropriate candidate for procedure/moderate/conscious sedation Cardiac Registry (Cardio Only) - Functional Capacity Functional Capacity: >=4 METS without symptoms - Clincal Frailty Scale Clinical Frailty Scale: Well
--- NOTE | 2019-01-21 12:51 | Event Note ---
Date of Encounter: 01/21/19 Time of Encounter: 12:49 - Cardiology Event Note Cath completed. 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
--- NOTE | 2019-01-21 13:03 | Invasive Diagnostic Lab Proc ---
Name: Damir Reynolds Date of Study: 01/21/2019 Date: 1960 Ht: 70.9in Medical Record#: [id number] Age: 58 Wt: 322.54lb Gender: Male BSA: 2.58 Order #: [id number] BMI: 45.15 Physicians Procedure Physician: Zenon Guzman MD Referring MD: Referring MD: Staff Name Position Time In Stephen Polo RN Hammer Operator 11:37 AM Christa Donald RT (R) Scrub 11:38 AM Erick Hdz RT (R) Monitor 11:38 AM Indications Indication Other-Abnormal Test - Stress Procedures Performed Procedure L HRT ARTERY/VENTRICLE ANGIO PRQ CARD BM STENT W/ANGIO 1 VSL Pre-Procedure Checklist Informed consent is complete signed and on chart. H&P is on chart. ID band is on and ID verified with patient. Patient NPO for procedure The procedure was described for the patient and questions were answered. Blood Pressure: 151/77 ECG is on chart. Rhythm: NSR Plan of Care Patient will tolerate the procedure without complications. Adequate level of comfort will be maintained. Hemodynamics will remain stable Patient will recover from procedure without complications. Respiratory function will be maintained. Cardiac rhythm will remain stable. Patient temperature will be maintained. Patient and/or family have verbalized understanding of the procedure. Patient Education Chief Complaint/Reason for Test: Cardiac Cath Developmental Category: Adult (18-64 years) Developmentally Appropriate for Age: Yes Learning Barriers: None Education Needs: Procedure Education Method: Verbal Information Taught: Cardiac Cath Educational Evaluation: Able to repeat information Intravenous Access Time IV Size Location DC'd Fluid/Drip Rate Units RN 11:55 AM 22g 1" Patent On Arrival Lt Hand 0.9NaCl 25 ml/hr Stephen Polo RN Allergies No Known Allergies Vital Signs Time BP (mmHg) HR (bpm) O2 Sat. RR (bpm) LOC 11:55 AM 151 / 77 75 94 % 16 5 = Fully awake and oriented or at pre-proc level 11:55 AM / % 5 = Fully awake and oriented or at pre-proc level 11:56 AM / % 5 = Fully awake and oriented or at pre-proc level 12:11 PM / % 4 = Oriented but drowsy 12:26 PM / % 5 = Fully awake and oriented or at pre-proc level 12:07 PM 184 / 98 84 98 % 10 12:12 PM 165 / 88 84 98 % 16 12:17 PM 90 / 33 89 99 % 13 12:19 PM 103 / 53 88 98 % 13 12:25 PM 164 / 67 82 99 % 17 12:30 PM 135 / 70 86 99 % 8 12:35 PM 138 / 75 84 99 % 8 12:42 PM 166 / 156 83 99 % 14 12:45 PM 144 / 90 89 100 % 23 12:41 PM / % 5 = Fully awake and oriented or at pre-proc level Procedural Medications Time Medication Dose Units Method Given By 12:07 PM Oxygen 2 L/min nasal cannula Stephen Polo RN 12:08 PM Versed 2 mg Intravenous Stephen Polo RN 12:12 PM Lidocaine 2% 1 ml Subcutaneous Zenon Guzman MD 12:15 PM Heparin 4000 units Nitroglycerin 200 mcg Verapamil 2.5 mg Intraarterial Zenon Guzman MD 12:29 PM Nitroglycerin 200 mcg Intracoronary Zenon Guzman MD 12:30 PM Heparin 3000 units Intravenous Stephen Polo RN 12:43 PM Plavix 600 mg Orally Stephen Polo RN ASA Classification: CLASS II- Mild systemic disease (i.e. well-controlled diabetes, hypertension, asthma, cigarette smoking) Srinivasa Score Preprocedure Postprocedure Activity 2- Moves 4 extremities sustained head lift Activity 2- Moves 4 extremities sustained head lift Circulation 2- SBP +/= 20 points of pre-anesthetic level Circulation 2- SBP +/= 20 points of pre-anesthetic level Consciousness 2- Awake and alert oriented x 3 Consciousness 2- Awake and alert oriented x 3 O2 Saturation 2- Able to maintain O2 satruation of 92% on room air O2 Saturation 2- Able to maintain O2 satruation of 92% on room air Respiratory 2- Able to deep breathe and cough well Respiratory 2- Able to deep breathe and cough well Total Score 10 Total Score 10 Contrast Agent: Isovue Diagnostic Contrast: 140 ml Total Contrast: 140 ml Fluoro Dose: 127 mGy Activated Clotting Time Time Seconds to Clot 12:30 PM 179 Procedure Log Time Note Enter By 11:38 AM Stephen Polo RN Position: Hammer Operator Time in: 11:37 [email or web address] 11:38 AM Christa Donald RT (R) Position: Scrub Time in: 11:38 [email or web address] 11:38 AM Erick Hdz (R) Position: Monitor Time in: 11:38 [email or web address] 11:38 AM Patient charges- Angio tray pack, Navilyst 3mm J, Pulse Oximetry and ACIST tubing and transducer [email or web address] 11:55 AM CathStat 11:55 AM 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 well-controlled diabetes, hypertension, asthma, cigarette smoking) [email or web address] 11:55 AM Meet and greet completed [email or web address] 11:55 AM Sign in performed according to hospital policy. Informed consent was obtained. [email or web address] 11:55 AM Time: :55 Patient comfortable and pain free: Yes [email or web address] 11:56 AM Time: :55LOC: 5 = Fully awake and oriented or at pre-proc level [email or web address] 11:56 AM Procedure start 11:56 [email or web address] 12:02 PM Hair removed from procedure site in procedure lab using clippers. Right wrist and Right groin prepped with Chloraprep by Christa Donald (R), then patient was draped. Skin intact. [email or web address] 12:06 PM Vitals capture started with the following parameters, Patient=Adult, Interval=5 min, Initial Oinpfjml=898 mmHg, Deflation Rate=5 mmHg, Cuff placed on Left Arm 12:06 PM Recorded ECG: HR=83 Condition=Condition 1 12:07 PM HR=84 bpm, PNEZ=657/98 mmhg, SpO2=98.0 %, Resp=10 B/min 12:07 PM Time: 12:07 Oxygen on at 2 L/min per nasal cannula by Stephen Polo RN [place] [id number] 12:08 PM Time: 12:08 Versed 2 mg Intravenous Given by Stephen Polo RN [place] [id number] 12:11 PM Time: :56LOC: 5 = Fully awake and oriented or at pre-proc level [email or web address] 12:11 PM Time: :55 Patient comfortable and pain free: Yes [email or web address] 12:11 PM Time out was performed according to hospital policy. Conscious sedation and anesthesia was achieved (see medication log with in this report above) [email or web address] 12:12 PM HR=84 bpm, CWZR=429/88 mmhg, SpO2=98.0 %, Resp=16 B/min 12:12 PM Time: 12:12 1 ml Lidocaine 2% to right radial Subcutaneous Given by Zenon Guzman MD [email or web address] 12:14 PM Access obtained by percutaneous puncture. 6Fr 10cm Terumo Glidesheath sheath placed in right Radial artery. [id number] [email or web address] 12:15 PM Pressure channel 2 zeroed. 12:15 PM Time: 12:15 Patient given 4,000 units Heparin, 200 mcg Nitroglycerin, and 2.5 mg Verapamil Intraarterial by Zenon Guzman MD. This is given to reduce risk of vessel spasm and thrombosis. [email or web address] 12:15 PM 0.035 260cm Navilyst 3mmJ wire [id number] [email or web address] 12:16 PM 5Fr FL3.5 catheter inserted over the wire [id number] 12:17 PM LCA angiography performed in multiple views. [email or web address] 12:17 PM HR=89 bpm, NIBP=90/33 mmhg, SpO2=99.0 %, Resp=13 B/min 12:17 PM Recorded Pressure: Ao, HR=89, Condition=Condition 1 (Aorta) Ao 102/55/73 12:17 PM Vitals capture stopped. 12:17 PM Vitals capture started with the following parameters, Patient=Adult, Interval=5 min, Initial Ipilijka=366 mmHg, Deflation Rate=5 mmHg, Cuff placed on Left Arm 12:19 PM HR=88 bpm, GKBK=214/53 mmhg, SpO2=98.0 %, Resp=13 B/min 12:20 PM Catheter removed [facility] 12:20 PM 5Fr FR 4 catheter [email or web address] PM Recorded Pressure: Ao, HR=98, Condition=Condition 1 (Aorta) Ao 129/79/100 12:21 PM RCA angiography performed in multiple views. [email or web address] 12:22 PM Coronary Dominance: right [email or web address] 12:22 PM Catheter removed [facility] 12:23 PM 5Fr Pigtail catheter inserted over the wire [facility] 12:24 PM Recorded Pressure: LV, HR=88, Condition=Condition 1 (Left Ventricle) LV 141/25/29 12:24 PM Recorded Pressure: LV, HR=88, Condition=Condition 1 (Left Ventricle) LV 144/22/26 12:25 PM Vitals capture started with the following parameters, Patient=Adult, Interval=5 min, Initial Rqomdwnq=467 mmHg, Deflation Rate=5 mmHg, Cuff placed on Left Arm 12:25 PM Recorded Pressure: LV, Ao, HR=87, Condition=Condition 1 (Left Ventricle) LV 163/29/32, (Aorta) Ao 155/29/78 12:25 PM Catheter crossed the aortic valve and was selectively placed in the left ventricle. Pressures recorded on pullback for left heart catheterization. [email or web address] 12:25 PM hand injected LV gram [email or web address] 12:25 PM Catheter removed [email or web address] 12:25 PM HR=82 bpm, MPCA=728/67 mmhg, SpO2=99.0 %, Resp=17 B/min 12: PM Time: 12:11 Patient comfortable and pain free: Yes [email or web address] 12:26 PM Time: 12:11LOC: 4 = Oriented but drowsy [email or web address] 12:27 PM Inflation device was opened. [email or web address] 12:27 PM Lesion found in Mid RCA. Pre Stenosis: 90 Pre TOSHIA Flow: [email or web address] 12:27 PM Right Coronary, Right Posterior Descending Arteries with Right Posterolateral and Acute Marginal branches with 90 % stenosis. If graft is supplying this area, 0 % stenosis [email or web address] 12:28 PM 6Fr JR 4 [place] Bright-Tip guide catheter was used to cannulate the PCI vessel successfully. reused? No [email or web address] 12:28 PM Recorded Pressure: Ao, HR=82, Condition=Condition 1 (Aorta) Ao 149/85/109 12:29 PM Time: 12:29 Nitroglycerin 200 mcg Intracoronary Given by Zenon Guzman MD [place] [id number] 12:30 PM At 12:30 the ACT was 179 seconds. [email or web address] 12:30 PM .014 Balance 300cm guide wire across target lesion- successful. reused? No [email or web address] 12:30 PM HR=86 bpm, UWYT=519/70 mmhg, SpO2=99.0 %, Resp=8 B/min 12:30 PM Time: 12:30 Heparin 3000 units Intravenous Given by Stephen Polo RN [email or web address] 12:33 PM 3.0mm x 20mm Rebel [place] [employer] bare metal stent across target lesion- successful Lot #[id number] [email or web address] 12:35 PM HR=84 bpm, CWGZ=437/75 mmhg, SpO2=99.0 %, Resp=8 B/min 12:36 PM Stent delivery system removed intact. not deployed [email or web address] 12:36 PM 2.5 mm x 20 mm Emerge [employer]or[employer] balloon across target lesion- successful. reused? No [email or web address] 12:38 PM Balloon inflated @ 14 kym for 17 seconds [email or web address] 12:38 PM Balloon catheter removed intact. [email or web address] 12:38 PM 3.0mm x 20 rebel stent advanced [email or web address] 12:41 PM Stent deployed @ 14 kym for 30 seconds [email or web address] 12:41 PM Time: 12:26LOC: 5 = Fully awake and oriented or at pre-proc level [email or web address] 12:41 PM Time: 12:26 Patient comfortable and pain free: Yes [email or web address] 12:41 PM Stent delivery system removed intact. [email or web address] 12:41 PM Guide wire removed intact. [email or web address] 12:42 PM Guide catheter removed intact. [email or web address] 12:42 PM HR=83 bpm, LCBI=692/156 mmhg, SpO2=99.0 %, Resp=14 B/min 12:43 PM Arterial sheath pulled, Vasc Band closure device used and was Successful S/N. [email or web address] 12:43 PM 10 ml air in Vasc Band. [email or web address] 12:43 PM Time: 12:43 Plavix 600 mg Orally Given by Stephen Polo RN [email or web address] 12:44 PM Procedure completed at 12:44 01/21/2019 [email or web address] 12:45 PM Sign out completed: Radiation Dose 1318.12 mGy, 127 Gy/cm2 Fluoro Time: 11.1 Isovue 370 - 200ml contrast 140 ml given by Zenon Guzman MD. Complications: None. 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 Sedation minutes 37. Cardiac Rehab Consult needed: Yes. Confirmed administered medications: Yes [email or web address] 12:45 PM Isovue 370 - 200ml,1 Bottle(s) used. [email or web address] 12:45 PM Estimated Blood Loss: minimal [email or web address] 12:45 PM Post ECG NSR [email or web address] 12:45 PM Post Blood Pressure 138/75 [email or web address] 12:45 PM 12:45 Post Pulses Rt Radial 1+ [email or web address] 12:45 PM Information taught Cardiac Cath, PCI, and Vasc Band [email or web address] 12:45 PM HR=89 bpm, SLKS=819/90 mmhg, JsM6=012.0 %, Resp=23 B/min 12:45 PM Education needs Procedure, Plan of Care, and Disease Process [email or web address] 12:46 PM Learning barriers :Sedated [email or web address] 12:46 PM Education Methods Verbal [email or web address] 12:46 PM Education evaluation Needs further instruction [email or web address] 12:46 PM Site status No bleeding/ No Hematoma - Rt Wrist as reported by Sites, Christa RT (R) at 12:46 [email or web address] 12:46 PM Delay to floor No [email or web address] 12:46 PM Family placed in consult room. [email or web address] 12:46 PM Complications: None [email or web address] 12:48 PM Vitals capture stopped. 12:50 PM Report given to fran MORALES Pt taken to 3B Room #55. 12:50 [email or web address] 12:51 PM Patient out of room: 12:51 [email or web address] 12:53 PM Lesion found in Proximal LAD. Pre Stenosis: 70 Pre TOSHIA Flow: [email or web address] 12:53 PM Proximal Left Anterior Descending Coronary Artery with 70% stenosis. If graft is supplying this territory, 0 % stenosis. [email or web address] 12:53 PM Lesion found in Mid LAD. Pre Stenosis: 30 Pre TOSHIA Flow: [email or web address] 12:53 PM Mid/Distal Left Anterior Descending Coronary Artery and diagonal branches with 30% stenosis. If graft is supplying this area, 0 % stenosis [email or web address] 12:56 PM Time: 12:41 Patient comfortable and pain free: Yes [email or web address] 12:56 PM Time: 12:41LOC: 5 = Fully awake and oriented or at pre-proc level [email or web address] Complications Complication None None Hemodynamics Pressures Site Systolic/A Wave Diastolic/V Wave Mean AO 102 55 73 AO 129 79 100 LV 141 25 29 LV 144 22 26 LV 163 29 32 AO 155 29 78 AO 149 85 109 Post Procedure Information Blood Pressure: 138/75 mmHg Rhythm: NSR Post procedural instructions were given Closure Device Time Device Success/Fail 01/21/2019 12:43:00 PM Mechanical Compression Successful Site Checks Time Location Status Staff Sheath In? Note 12:46 PM Rt Wrist No bleeding/ No Hematoma Sites, Christa RT (R) Pulses Time Site Pre-Procedure Post-Procedure Note 01/21/2019 11:55:00 AM Bilateral DP & PT 1+ 01/21/2019 12:07:00 PM Rt Radial 2+ 01/21/2019 12:07:00 PM Lt Radial 2+ 12:45:00 PM Rt Radial 1+ Updated by Erick Hdz RT (R) on 01/21/2019 12:58:48 PM Erick Hdz, RT electronically signed on 01/21/2019 12:59:10 PM with status of Final
[2019-01-21] MEDS: Nicotine 14 MG PATCH.TD24 TD SCH (14:18)
[2019-01-21] MEDS ORDERED: traMADol 50 MG TABLET PO PRN (16:01)
[2019-01-21] MEDS ORDERED: Loratadine 10 MG TABLET PO PRN (16:01)
--- NOTE | 2019-01-21 16:07 | Internal Med Progress Note ---
Hospitalist Progress Note - Encounter Date of Encounter: 01/21/19 Time of Encounter: 16:04 - Subjective Interval History: He just came back from [facility]. He denied any CP / SOB. Resting comfortably. - Exam Vitals: Temp Pulse Resp BP Pulse Ox 97.8 F 85 16 108/59 99 01/21/19 10:35 01/21/19 15:29 01/21/19 15:00 01/21/19 15:00 01/21/19 15:00 Exam: Gen: Alert, awake, Oriented to time,place and person Chest: Diminished breath sounds B/L, No wheezing, No crackles, No rales Heart: S1S2+ RRR No murmurs Abd: Soft, NT, BS +, No organomegaly Ext: No edema, pulses are palpable, No calf tenderness Neuro : No acute focal neuro deficits noticed Skin: No rash. - Assessment and Plan (1) Abnormal stress test Current Visit: Yes Status: Acute Assessment and Plan: Cont on tele s/p [facility] today He had lesion in RCA with dominant-tubular 85%.. Placed BMS Started him on DAPT ASA + Plavix - 30 days cont home med Statin and BB (2) CAD (coronary artery disease) Current Visit: Yes Status: Chronic Assessment and Plan: Continue home medications (3) DM (diabetes mellitus), type 2 Current Visit: Yes Status: Chronic Assessment and Plan: Stable BS on ISS ADA diet (4) Anemia Current Visit: Yes Status: Chronic Assessment and Plan: cont close monitoring chronic anemia stable Hb for now (5) Esophageal varices Current Visit: No Status: Acute Assessment and Plan: s/p EGD in 10/11 no signs of active bleeding now continue close monitoring (6) Tobacco abuse Current Visit: Yes Status: Chronic Assessment and Plan: Counseled to quit smoking placed on nicotine patch (7) DVT prophylaxis Current Visit: Yes Status: Acute Assessment and Plan: Bilateral SCDs on LEs for DVT prophylaxis d/t possible [facility] today. (8) Cirrhosis Current Visit: Yes Status: Chronic Assessment and Plan: Hx of alcoholic cirrhosis. Patient reports he stopped drinking prior to previous admission. AST 19 and ALT 18 on admission. Continue close monitoring (9) Alcoholism Current Visit: Yes Status: Chronic Assessment and Plan: Hx of chronic alcoholism. Patient reports he quit prior to previous admission. (10) CHF (congestive heart failure) Current Visit: Yes Status: Chronic Assessment and Plan: Chronic diastolic CHF not in exacerbation close monitoring (11) COPD (chronic obstructive pulmonary disease) Current Visit: Yes Status: Chronic Assessment and Plan: Hx of chronic COPD. Stable not in exacerbation resumed home inhalers (12) Chronic back pain Current Visit: Yes Status: Chronic Assessment and Plan: Chronic narcotic dependent resumed all home medications (13) GERD (gastroesophageal reflux disease) Current Visit: Yes Status: Chronic Assessment and Plan: Continue PPI - Time Spent with Patient Total time spent is greater than 50% in coordination of care (as documented) at patient's floor/unit and/or counseling patient: Internal Medicine: Result - Labs CBC & Chem 7: 01/21/19 01:00 01/21/19 01:00 Labs: Short CBC 01/21/19 Range/Units 01:00 WBC 8.7 (4.3-11.1) K/mcL Hgb 10.2 L (12.9-16.9) g/dL Hct 32.1 L (37.5-50.1) % Plt Count 212 (140-400) K/mcL BMP 01/21/19 01:00 Sodium 135 L Potassium 4.2 Chloride 101 Carbon Dioxide 27 BUN 15 Creatinine 0.98 Glucose 184 H Calcium 9.2 - ABG Interpretation ABG results: PT/INR, D-dimer PT 12.1 Seconds (9.4-12.1) 01/19/19 17:57 Consult Discharge Plan - Plan Instructions: Nicotine (Absorbed through the skin), Chest Pain (DC) Referrals: Harrison Villarreal MD [Primary Care Provider] - (Please contact our office for a follow-up appointment. ) Kortney Manuel DO [Partnered Physician] - (An appointment has been requested.) Prescriptions: Nicotine Patch [Nicoderm] 14 mg TD DAILY #30 patch.td24 (2) CAD (coronary artery disease) Qualifiers: Coronary Disease-Associated Artery/Lesion type: [place] artery [place] vs. transplanted heart: [place] heart Associated angina: angina presence unspecified Qualified Code(s): I25.10 - Atherosclerotic heart disease of [place] coronary artery without angina pectoris (3) DM (diabetes mellitus), type 2 Qualifiers: Diabetes mellitus terminal system operator insulin use: without terminal system operator use Diabetes mellitus complication status: with other specified complication Qualified Code(s): E11.69 - Type 2 diabetes mellitus with other specified complication (4) Anemia Qualifiers: Anemia type: unspecified type Qualified Code(s): D64.9 - Anemia, unspecified (5) Esophageal varices Qualifiers: Esophageal varices type: secondary Esophageal varices bleeding: with bleeding Qualified Code(s): I85.11 - Secondary esophageal varices with bleeding (8) Cirrhosis Qualifiers: Hepatic cirrhosis type: alcoholic cirrhosis Ascites presence: unspecified Qualified Code(s): K70.30 - Alcoholic cirrhosis of liver without ascites (10) CHF (congestive heart failure) Qualifiers: Heart failure type: systolic Heart failure chronicity: chronic Qualified Code(s): I50.22 - Chronic systolic (congestive) heart failure (11) COPD (chronic obstructive pulmonary disease) Qualifiers: COPD type: unspecified COPD Qualified Code(s): J44.9 - Chronic obstructive pulmonary disease, unspecified (12) Chronic back pain Qualifiers: Back pain location: low back pain Back pain laterality: bilateral Sciatica presence: with sciatica Sciatica laterality: sciatica of right side Qualified Code(s): M54.41 - Lumbago with sciatica, right side; G89.29 - Other chronic pain (13) GERD (gastroesophageal reflux disease) Qualifiers: Esophagitis presence: esophagitis presence not specified Qualified Code(s): K21.9 - Gastro-esophageal reflux disease without esophagitis
[2019-01-22] MEDS: *HR* HYDROcodone/Acet 5/325 mg TABLET PO PRN ×2 (00:28→08:43)
[2019-01-22] MEDS ORDERED: Melatonin 3 MG TABLET PO PRN (00:49)
--- NOTE | 2019-01-22 04:25 | Electrocardiograph Report ---
[place] [employer] Test Date: 2019-01-19 Pat Name: Damir Reynolds Department: 104 Room: 3B55 Gender: M Purchasing Manager/Sales: Lane SIMONB: 1960 Requested By: Viet Hurtado Order Number: [id number] Reading MD: Jeri Thompson Measurements Intervals [place] Rate: 90 P: -77 MS: 208 QRS: 49 QRSD: 81 T: 0 QT: 342 QTc: 390 Interpretive Statements SINUS RHYTHM LOW QRS VOLTAGE IN PRECORDIAL LEADS NONSPECIFIC T-WAVE ABNORMALITY Electronically Signed On 01-22-2019 4:23:35 EDT by Jeri Thompson
[2019-01-22 05:33] LABS: White Blood Count 9.3 K/mcL (4.3-11.1)
[2019-01-22 05:34] LABS: Basophils # 0.1 K/mcL (0.0-0.2); Basophils % 0.5 %; Eosinophils # 0.3 K/mcL (0.0-0.6); Eosinophils % 3.4 %; Hematocrit 31.1 % (37.5-50.1); Hemoglobin 9.6 g/dL (12.9-16.9); Immature Granulocytes % 0.4 % (0-4); Lymphocytes # 1.6 K/mcL (0.6-4.6); Lymphocytes % 17.5 %; Mean Corpuscular HGB Conc 30.9 g/dL (31.6-35.5); Mean Corpuscular Hemoglobin 28.3 pg (28.0-33.3); Mean Corpuscular Volume 91.7 fL (83.0-100.0); Mean Platelet Volume 10.9 fL (9.4-12.4); Monocytes # 0.8 K/mcL (0.0-1.3); Neutrophils # 6.4 K/mcL (1.6-8.9); Platelet Count 184 K/mcL (140-400); Red Blood Count 3.39 M/mcL (4.19-5.50); Red Cell Distribution Width 15.9 % (11.5-14.5); Segmented Neutrophils % 69.2 %
[2019-01-22 05:52] LABS: BUN/Creatinine Ratio 15 (6-26); Blood Urea Nitrogen 13 mg/dL (6-20); Calcium 9.4 mg/dL (8.6-10.3); Carbon Dioxide 28 mEq/L (23-29); Chloride 102 mEq/L (98-107); Glucose 140 mg/dL (70-105); Osmolality,Calculated 284 (280-300); Sodium 136 mEq/L (136-145); eGFR For African Americans > 60 (> 60); eGFR For Non-African Americans > 60 (> 60)
[2019-01-22 07:29] VITALS: BP 140/67
[2019-01-22] MEDS: Tiotropium 18 MCG inhalation IH SCH (08:05)
[2019-01-22] MEDS: Insulin LISPRO 300 UNITS/3 ML VIAL SQ SCH (08:42)
[2019-01-22] MEDS: Thiamine (B-1) 100 MG TABLET PO SCH (08:42)
[2019-01-22] MEDS: Folic Acid 1 MG TABLET PO SCH (08:42)
[2019-01-22] MEDS: Nicotine 14 MG PATCH.TD24 TD SCH (08:43)
[2019-01-22] MEDS: Iron Polysaccharide Complex 150 MG CAPSULE PO SCH (08:43)
[2019-01-22] MEDS: Aspirin 81 MG TAB.CHEW PO SCH (08:43)
[2019-01-22] MEDS: Furosemide 40 MG TABLET PO SCH (08:57)
--- NOTE | 2019-01-22 09:49 | Discharge Summary ---
- NOTES TO OUTPATIENT PROVIDER Notes to Outpatient Provider: f/u with PCP in one week. f/u with Cardiology in 1-2 weeks. Please take Plavix 75mg along with Aspirin 81mg for 30 days. Orders not resulted at time of discharge: Pending orders 01/19/19 17:58 Culture,Blood [BC] Stat 01/20/19 13:45 Occult Blood,Stool [BF] Routine Date of Encounter: 01/22/19 Time of Encounter: 09:47 - Discharge Diagnosis (1) Abnormal stress test Priority: Primary Status: Acute (2) CAD (coronary artery disease) Priority: Secondary Status: Chronic Qualifiers: Coronary Disease-Associated Artery/Lesion type: [place] artery [place] vs. transplanted heart: [place] heart Associated angina: angina presence unspecified Qualified Code(s): I25.10 - Atherosclerotic heart disease of [place] coronary artery without angina pectoris (3) Paroxysmal A-fib Priority: Primary Status: Acute (4) DM (diabetes mellitus), type 2 Priority: Secondary Status: Chronic Qualifiers: Diabetes mellitus chcf insulin use: without terminal press operator use Diabetes mellitus complication status: with other specified complication Qualified Code(s): E11.69 - Type 2 diabetes mellitus with other specified complication (5) Anemia Priority: Secondary Status: Chronic Qualifiers: Anemia type: unspecified type Qualified Code(s): D64.9 - Anemia, unspecified (6) Esophageal varices Priority: Secondary Status: Acute Qualifiers: Esophageal varices type: secondary Esophageal varices bleeding: with bleeding Qualified Code(s): I85.11 - Secondary esophageal varices with bleeding (7) Tobacco abuse Priority: Secondary Status: Chronic (8) DVT prophylaxis Priority: Secondary Status: Acute (9) Cirrhosis Priority: Secondary Status: Chronic Qualifiers: Hepatic cirrhosis type: alcoholic cirrhosis Ascites presence: unspecified Qualified Code(s): K70.30 - Alcoholic cirrhosis of liver without ascites (10) Alcoholism Priority: Secondary Status: Chronic (11) CHF (congestive heart failure) Priority: Secondary Status: Chronic Qualifiers: Heart failure type: systolic Heart failure chronicity: chronic Qualified Code(s): I50.22 - Chronic systolic (congestive) heart failure (12) COPD (chronic obstructive pulmonary disease) Priority: Secondary Status: Chronic Qualifiers: COPD type: unspecified COPD Qualified Code(s): J44.9 - Chronic obstructive pulmonary disease, unspecified (13) Chronic back pain Priority: Secondary Status: Chronic Qualifiers: Back pain location: low back pain Back pain laterality: bilateral Sciatica presence: with sciatica Sciatica laterality: sciatica of right side Qualified Code(s): M54.41 - Lumbago with sciatica, right side; G89.29 - Other chronic pain (14) GERD (gastroesophageal reflux disease) Priority: Secondary Status: Chronic Qualifiers: Esophagitis presence: esophagitis presence not specified Qualified Code(s): K21.9 - Gastro-esophageal reflux disease without esophagitis (15) Morbid obesity with BMI of 45.0-49.9, adult Priority: Secondary Status: Acute Hospital course: Mr. Reynolds is a 58 year old male with a relevant PMH of ETOH abuse reported 10-20 beers per day since age 8--stopped 3 weeks ago, cirrhosis, esophageal varices with GI bleed, HTN, CVA, asthma, obesity, COPD, DM, HLD, OR, who presented to [facility] since he had an out pt abnormal stress test. Patient was recently admitted and underwent stress, however patient signed out AMA prior to stress test resulting. Patient states he saw his PCP yesterday and was told his stress test was abnormal, so he presented to ER. Patient denies chest pain. Denies shortness of breath. Denies edema. Patient reports he was just concerned about stress test. He was admitted in the hospital and placed him on new product trainer. His initial Trop was 0.03. He denied any Chest pain what so ever. Pt stated he never had CP. He was evaluated by Wool Scourer who wanted to monitor his Hb closely for now before to do any LHC since he does have recently dx esophageal varices which put him on high risk for bleeding. He did go for LHC y/d which showed lesion in RCA with dominant-tubular 85%.. Placed BMS and started him on DAPT ASA + Plavix for 30 days. He does have ANGELA too, and he happened to have Afib on monitor last night. However now he is back in NSR and rate controlled with Metoprolol. He is not a candidate for anti coagulation due to esophageal varices and GI bleed. So recommend to continue Aspirin and also go for sleep study as an out pt. - Time Spent with Patient Total time spent providing and/or coordinating discharge services: - Discharge Medications Prescriptions: New Nicotine Patch [Nicoderm] 14 mg TD DAILY #30 patch.td24 Clopidogrel [Plavix] 75 mg PO DAILY #30 tablet Continued Metoprolol [Lopressor] 25 mg PO BID Tamsulosin [Flomax] 0.4 mg PO DAILY Thiamine Mononitrate [Vitamin B-1] 100 mg PO DAILY Albuterol Sulfate [Ventolin Hfa] 2 puff IH Q6H PRN PRN Reason: Shortness Of Breath Aspirin 81 mg PO DAILY Cetirizine HCl [24Hour Allergy] 10 mg PO DAILY PRN PRN Reason: Allergy Symptoms Fluticasone Propionate Nasal [Flonase] 2 spray NS DAILY PRN PRN Reason: Allergy Symptoms Folic Acid 1 mg PO DAILY GlipiZIDE XL (24 HR) [Glucotrol XL] 10 mg PO BID Levomefolate/B6/B12/Algal Oil [Metanx Capsule] 1 cap PO DAILY Lisinopril [Zestril] 10 mg PO DAILY metFORMIN [Glucophage] 500 mg PO BID Omeprazole [PriLOSEC] 40 mg PO DAILY Umeclidinium [place] [Incruse Ellipta] 1 puff IH HS Multivit-Min/FA/Lycopen/Lutein [Centrum Silver Men Tablet] 1 tab PO DAILY Ipratropium/Albuterol Neb [Duoneb] 3 ml IH [id number] PRN #0 inhsol PRN Reason: Shortness Of Breath/Wheezing Iron Polysaccharide Complex [Ferric X-150] 150 mg PO BID #60 capsule Atorvastatin [Lipitor] 20 mg PO HS tablet Polyethylene Glycol 3350 [MiraLAX] 17 gm PO DAILY PRN PRN Reason: Constipation Tramadol HCl [Ultram] 100 mg PO QID PRN PRN Reason: Mild To Moderate Pain HYDROcodone/Acet 5/325 mg [[place] 5-325 mg] 1 tab PO Q6HR PRN PRN Reason: Severe Pain Furosemide [Lasix] 40 mg PO DAILY #30 tablet Home Medications: Metoprolol [Lopressor] 25 mg PO BID 04/18/15 [History] Tamsulosin [Flomax] 0.4 mg PO DAILY 06/23/15 [History] Thiamine Mononitrate [Vitamin B-1] 100 mg PO DAILY 06/23/15 [History] Albuterol Sulfate [Ventolin Hfa] 2 puff IH Q6H PRN 12/21/18 [History] Aspirin 81 mg PO DAILY 12/21/18 [History] Cetirizine HCl [24Hour Allergy] 10 mg PO DAILY PRN 12/21/18 [History] Fluticasone Propionate Nasal [Flonase] 2 spray NS DAILY PRN 12/21/18 [History] Folic Acid 1 mg PO DAILY 12/21/18 [History] GlipiZIDE XL (24 HR) [Glucotrol XL] 10 mg PO BID 12/21/18 [History] Levomefolate/B6/B12/Algal Oil [Metanx Capsule] 1 cap PO DAILY 12/21/18 [History] Lisinopril [Zestril] 10 mg PO DAILY 12/21/18 [History] Multivit-Min/FA/Lycopen/Lutein [Centrum Silver Men Tablet] 1 tab PO DAILY 12/21/18 [History] Omeprazole [PriLOSEC] 40 mg PO DAILY 12/21/18 [History] Umeclidinium [place] [Incruse Ellipta] 1 puff IH HS 12/21/18 [History] metFORMIN [Glucophage] 500 mg PO BID 12/21/18 [History] Atorvastatin [Lipitor] 20 mg PO HS tablet 12/28/18 [Rx] Ipratropium/Albuterol Neb [Duoneb] 3 ml IH [id number] PRN #0 inhsol 12/28/18 [Rx] Iron Polysaccharide Complex [Ferric X-150] 150 mg PO BID #60 capsule 12/28/18 [Rx] HYDROcodone/Acet 5/325 mg [[place] 5-325 mg] 1 tab PO Q6HR PRN 01/12/19 [History] Polyethylene Glycol 3350 [MiraLAX] 17 gm PO DAILY PRN 01/12/19 [History] Tramadol HCl [Ultram] 100 mg PO QID PRN 01/12/19 [History] Furosemide [Lasix] 40 mg PO DAILY #30 tablet 01/15/19 [Rx] Nicotine Patch [Nicoderm] 14 mg TD DAILY #30 patch.td24 01/20/19 [Rx] Clopidogrel [Plavix] 75 mg PO DAILY #30 tablet 01/22/19 [Rx] Allergies/Adverse Reactions: Allergy/AdvReac Type Severity Reaction Status Date / Time No Known Allergies Allergy Verified 01/21/19 10:39 Date of admission: 01/19/19 23:31 Primary care physician: Harrison Villarreal Consults: 01/19/19 20:59 Consult to Cardiology [CONS] Stat Comment: Consulting Provider: Cardiology [facility] Reason for Consult: Abnormal stress test Dr. Mena Time Notified: 20:59 Call Completed: Yes 01/20/19 02:22 Consult to Manager Performance [CONS] Routine Reason for SW Consult: Please assess patient for possible home needs for post-discharge planning. 01/21/19 12:46 Consult to Cardiac Rehabilitation-Phase1 [CONS] Routine Comment: Reason for Consult: post op PCI Call Completed: Yes - Constitutional Vitals: Temp Pulse Resp BP Pulse Ox 98.2 F 79 16 140/67 97 01/22/19 07:21 01/22/19 07:21 01/22/19 08:05 01/22/19 07:21 01/22/19 08:05 General appearance: Present: cooperative, A&O X 3, morbidly obese, pleasant, answers questions appropriately Exam: Gen: Alert, awake, Oriented to time,place and person Chest: Diminished breath sounds B/L, No wheezing, No crackles, No rales Heart: S1S2+ RRR No murmurs Abd: Soft, NT, BS +, No organomegaly Ext: No edema, pulses are palpable, No calf tenderness Neuro : No acute focal neuro deficits noticed Skin: No rash. - Patient Status Disposition: Home, Self-Care Condition: Good Overall status at discharge: patient is back to baseline - Discharge Instructions Instructions: Nicotine (Absorbed through the skin), Chest Pain (DC) Follow Up With: Harrison Villarrela MD [Primary Care Provider] - (Please contact our office for a follow-up appointment. ) Kortney Manuel DO [Partnered Physician] - (An appointment has been requested.) - Diet and Activity Activity: increase activity as tolerated Diet: low salt diet
--- NOTE | 2019-01-22 21:04 | Electrocardiograph Report ---
[place] [id number] Test Date: 2019-01-22 Pat Name: Damir Reynolds Department: 113 Room: 3B Gender: M Material Dispatcher: : 1960 Requested By: Lorena Frost Order Number: [id number] Reading MD: Arthur Villela Measurements Intervals [place] Rate: 75 P: 10 MT: 238 QRS: 33 QRSD: 82 T: 22 QT: 368 QTc: 397 Interpretive Statements SINUS RHYTHM WITH FIRST DEGREE AV BLOCK NONSPECIFIC T-WAVE ABNORMALITY Electronically Signed On 01-22-2019 21:03:13 EDT by Arthur Villela
== END 2019-01-22 10:02 | disposition home or self-care (01) ==
LOC: 3BNU 16:02 → EMEROOARM 16:02 → SUATTDRO 23:31 → 3BNU 01-20 00:08
PROVIDERS: ADMIT Internal Medicine; ATTEND Family Medicine

== ENCOUNTER 2019-05-09 17:00 | Inpatient (IN) ==
[2019-05-09] MEDS ORDERED: methylPREDNISolone 125 MG/2 ML VIAL IVP ONE (17:21)
[2019-05-09] MEDS ORDERED: Ipratropium/Albuterol Neb 3 ML IH ONE (17:21)
[2019-05-09 17:40] LABS: Basophils # 0.1 K/mcL (0.0-0.2); Basophils % 0.7 %; Eosinophils # 0.2 K/mcL (0.0-0.6); Hematocrit 33.6 % (37.5-50.1); Hemoglobin 11.5 g/dL (12.9-16.9); Immature Granulocytes % 0.4 % (0-4); Lymphocytes # 1.1 K/mcL (0.6-4.6); Lymphocytes % 14.2 %; Mean Corpuscular HGB Conc 34.2 g/dL (31.6-35.5); Mean Corpuscular Hemoglobin 32.8 pg (28.0-33.3); Mean Corpuscular Volume 95.7 fL (83.0-100.0); Mean Platelet Volume 10.2 fL (9.4-12.4); Monocytes # 0.6 K/mcL (0.0-1.3); Monocytes % 7.9 %; Neutrophils # 5.6 K/mcL (1.6-8.9); Platelet Count 225 K/mcL (140-400); Red Blood Count 3.51 M/mcL (4.19-5.50); Red Cell Distribution Width 14.1 % (11.5-14.5); Segmented Neutrophils % 73.8 %; White Blood Count 7.6 K/mcL (4.3-11.1)
[2019-05-09 17:53] LABS: Bilirubin,Urine Negative (Negative); Blood,Urine Negative (Negative); Clarity,Urine Clear (Clear); Color,Urine Yellow (Yellow); Glucose,Urine (UA) Normal (Normal); Ketones,Urine Negative (Negative); Leukocyte Esterase,Urine Negative (Negative); Nitrite,Urine Negative (Negative); Protein,Urine Negative (Neg-Trace); Specific Gravity,Urine 1.012 (1.010-1.025); Urobilinogen,Urine Normal (Normal)
[2019-05-09] MEDS ORDERED: Furosemide 40 MG/4 ML VIAL IVP ONE (18:02)
[2019-05-09 18:08] LABS: Calcium 9.3 mg/dL (8.6-10.3); Potassium 5.2 mEq/L (3.5-5.1)
[2019-05-09 18:11] LABS: Troponin I 0.67 ng/mL (< 0.04)
[2019-05-09] MEDS ORDERED: Aspirin 325 MG TABLET PO ONE (18:18)
[2019-05-09] MEDS ORDERED: *HR* Heparin 5,000 UNIT/ML VIAL IVP PRN ×2 (18:19)
[2019-05-09] MEDS ORDERED: *HR* Heparin 5,000 UNIT/ML VIAL IVP ONE (18:19)
[2019-05-09] MEDS ORDERED: Heparin 25,000 UNIT/250 ML D5W 25,000 UNIT/250 ML IV.SOLN IVC SCH (18:30)
[2019-05-09 18:35] LABS: Prothrombin Time 10.9 Seconds (9.4-12.1)
[2019-05-09 18:38] LABS: Activated Partial Thrombo Time 34.2 Seconds (26.0-36.0)
[2019-05-09] MEDS ORDERED: Naloxone 0.4 MG/ML INJ IVP PRN (22:17)
[2019-05-09] MEDS ORDERED: Dextrose Gel 15 GM/37.5 ML TUBE PO PRN ×2 (22:19)
[2019-05-09] MEDS ORDERED: *HR* LORazepam 2 MG/ML VIAL IVP PRN ×3 (22:19)
[2019-05-09] MEDS ORDERED: D5% in Water 1,000 ML IVC PRN (22:19)
[2019-05-09] MEDS ORDERED: *HR* Dextrose 50 % in Water (Syg) 50 ML SYRINGE IVP PRN (22:19)
[2019-05-09] MEDS ORDERED: Nicotine 21 MG PATCH.TD24 TD SCH (22:30)
[2019-05-09] MEDS ORDERED: Albuterol 2.5 MG/3 ML NEBULIZER IH PRN (23:37)
[2019-05-09] MEDS ORDERED: Azithromycin 500 MG in 0.9 % Sodium Chloride 250 ML IVPB SCH (23:45)
[2019-05-10] MEDS ORDERED: Insulin LISPRO 300 UNITS/3 ML VIAL SQ SCH
[2019-05-10] MEDS ORDERED: MethylPREDNISolone 40 MG/ML VIAL IVP SCH
[2019-05-10] MEDS: Ipratropium/Albuterol Neb 3 ML IH SCH ×6 (00:09→22:53)
[2019-05-10 00:53] LABS: BUN/Creatinine Ratio 22 (6-26); Blood Urea Nitrogen 30 mg/dL (6-20); Calcium 9.5 mg/dL (8.6-10.3); Carbon Dioxide 19 mEq/L (23-29); Chloride 95 mEq/L (98-107); Glucose 283 mg/dL (70-105); Osmolality,Calculated 280 (280-300); Potassium 5.2 mEq/L (3.5-5.1); Sodium 127 mEq/L (136-145); eGFR For African Americans > 60 (> 60); eGFR For Non-African Americans 52 (> 60)
[2019-05-10] MEDS ORDERED: Nitroglycerin 0.4 MG TAB.SUBL SL ONE (01:25)
[2019-05-10] MEDS: Nitroglycerin 0.4 MG TAB.SUBL SL PRN ×2 (01:26→01:32)
[2019-05-10] MEDS ORDERED: Dextrose Gel 15 GM/37.5 ML TUBE PO PRN ×2 (01:53)
[2019-05-10] MEDS ORDERED: *HR* Heparin 5,000 UNIT/ML VIAL IVP PRN ×2 (01:53)
[2019-05-10] MEDS ORDERED: Albuterol 2.5 MG/3 ML NEBULIZER IH PRN (01:53)
[2019-05-10] MEDS ORDERED: *HR* Dextrose 50 % in Water (Syg) 50 ML SYRINGE IVP PRN (01:53)
[2019-05-10] MEDS ORDERED: *HR* LORazepam 2 MG/ML VIAL IVP PRN ×2 (01:53)
[2019-05-10] MEDS ORDERED: Nitroglycerin 0.4 MG TAB.SUBL SL PRN (01:53)
[2019-05-10] MEDS ORDERED: D5% in Water 1,000 ML IVC PRN (01:53)
[2019-05-10] MEDS ORDERED: Naloxone 0.4 MG/ML INJ IVP PRN (01:53)
[2019-05-10] MEDS ORDERED: Dexmedetomidine HCl 400 MCG/100 ML MLS IVC ONE (01:56)
[2019-05-10] MEDS: Heparin 25,000 UNIT/250 ML D5W 25,000 UNIT/250 ML IV.SOLN IVC SCH ×2 (02:01→14:16)
[2019-05-10 02:43] LABS: Hematocrit 33.5 % (37.5-50.1); Hemoglobin 11.4 g/dL (12.9-16.9); Mean Corpuscular Hemoglobin 32.4 pg (28.0-33.3); Mean Corpuscular Volume 95.2 fL (83.0-100.0); Platelet Count 222 K/mcL (140-400); Red Blood Count 3.52 M/mcL (4.19-5.50)
[2019-05-10 03:04] LABS: Calcium 8.9 mg/dL (8.6-10.3); Potassium 5.9 mEq/L (3.5-5.1)
[2019-05-10 03:09] LABS: Troponin I 0.68 ng/mL (< 0.04)
[2019-05-10] MEDS ORDERED: Calcium Gluconate 1gm/50mL 1 GM/50 ML BAG IVPB ONE (03:23)
[2019-05-10] MEDS ORDERED: Albuterol 2.5 MG/3 ML NEBULIZER IH ONE (03:24)
[2019-05-10] MEDS ORDERED: Insulin Human Regular 10 UNIT in 0.9 % Sodium Chloride 10 ML IV ONE (03:25)
[2019-05-10] MEDS: Insulin LISPRO 300 UNITS/3 ML VIAL SQ SCH ×3 (05:49→18:42)
[2019-05-10] MEDS: MethylPREDNISolone 40 MG/ML VIAL IVP SCH ×3 (05:50→18:48)
[2019-05-10 07:01] LABS: BUN/Creatinine Ratio 24 (6-26); Blood Urea Nitrogen 33 mg/dL (6-20); Calcium 8.9 mg/dL (8.6-10.3); Carbon Dioxide 24 mEq/L (23-29); Chloride 94 mEq/L (98-107); Glucose 341 mg/dL (70-105); Osmolality,Calculated 289 (280-300); Potassium 5.3 mEq/L (3.5-5.1); Sodium 129 mEq/L (136-145); eGFR For African Americans > 60 (> 60); eGFR For Non-African Americans 52 (> 60)
[2019-05-10] MEDS: Aspirin 81 MG TAB.CHEW PO SCH (08:01)
[2019-05-10] MEDS: Nicotine 21 MG PATCH.TD24 TD SCH (08:02)
[2019-05-10] MEDS: Furosemide 40 MG/4 ML VIAL IVP SCH (08:02)
[2019-05-10] MEDS ORDERED: Furosemide 40 MG/4 ML VIAL IVP SCH (09:00)
[2019-05-10] MEDS ORDERED: Fluticasone Propionate Nasal 50 MCG/SPRAY BOTTLE NS PRN (13:36)
[2019-05-10] MEDS: Menthol 9.1 MG LOZENGE PO PRN ×2 (14:08→22:36)
[2019-05-10] MEDS ORDERED: Thiamine (B-1) 100 MG, Folic Acid 1 MG, MVI, adult with vitamin K 10 ML in 0.9 % Sodi... IVPB SCH (18:00)
[2019-05-10] MEDS: Thiamine (B-1) 100 MG, Folic Acid 1 MG, MVI, adult with vitamin K 10 ML in 0.9 % Sodi... IVPB SCH (18:48)
[2019-05-10] MEDS: Insulin DETEMIR 100 UNIT/ML X5UNITS SQ SCH (20:32)
[2019-05-10] MEDS ORDERED: NON-FORMULARY MEDICATION 1 EACH EACH (Umeclidinium Bromide [Incruse Ellipta] 1 PUFF) IH SCH (21:00)
[2019-05-10] MEDS ORDERED: Perflutren Lipid Microsphere 1.3 ML in 0.9 % Sodium Chloride 8.7 ML IVP ONE (21:17)
[2019-05-11] MEDS: Insulin LISPRO 300 UNITS/3 ML VIAL SQ SCH ×4 (00:20→18:28)
[2019-05-11] MEDS: *HR* LORazepam 2 MG/ML VIAL IVP PRN ×2 (00:33→04:25)
[2019-05-11] MEDS: Azithromycin 500 MG in 0.9 % Sodium Chloride 250 ML IVPB SCH (01:05)
[2019-05-11] MEDS: Ipratropium/Albuterol Neb 3 ML IH SCH ×4 (03:34→22:17)
[2019-05-11] MEDS: MethylPREDNISolone 40 MG/ML VIAL IVP SCH ×2 (06:15→18:30)
[2019-05-11 08:00] LABS: Basophils % 0.1 %; Hematocrit 32.9 % (37.5-50.1); Hemoglobin 10.9 g/dL (12.9-16.9); Immature Granulocytes % 0.6 % (0-4); Lymphocytes # 0.5 K/mcL (0.6-4.6); Lymphocytes % 4.1 %; Mean Corpuscular HGB Conc 33.1 g/dL (31.6-35.5); Mean Corpuscular Hemoglobin 32.5 pg (28.0-33.3); Mean Corpuscular Volume 98.2 fL (83.0-100.0); Monocytes # 0.7 K/mcL (0.0-1.3); Neutrophils # 10.1 K/mcL (1.6-8.9); Platelet Count 213 K/mcL (140-400); Red Blood Count 3.35 M/mcL (4.19-5.50); Red Cell Distribution Width 14.3 % (11.5-14.5); Segmented Neutrophils % 89.2 %; White Blood Count 11.3 K/mcL (4.3-11.1)
[2019-05-11] MEDS: Furosemide 40 MG/4 ML VIAL IVP SCH (08:10)
[2019-05-11] MEDS: Nicotine 21 MG PATCH.TD24 TD SCH (08:12)
[2019-05-11 08:13] LABS: BUN/Creatinine Ratio 28 (6-26); Blood Urea Nitrogen 26 mg/dL (6-20); Calcium 9.4 mg/dL (8.6-10.3); Carbon Dioxide 25 mEq/L (23-29); Chloride 98 mEq/L (98-107); Glucose 217 mg/dL (70-105); Osmolality,Calculated 295 (280-300); Potassium 4.6 mEq/L (3.5-5.1); Sodium 137 mEq/L (136-145); eGFR For African Americans > 60 (> 60); eGFR For Non-African Americans > 60 (> 60)
[2019-05-11] MEDS: Aspirin 81 MG TAB.CHEW PO SCH (08:13)
[2019-05-11 08:21] LABS: Troponin I 7.42 ng/mL (< 0.04)
[2019-05-11] MEDS: Heparin 25,000 UNIT/250 ML D5W 25,000 UNIT/250 ML IV.SOLN IVC SCH (09:14)
[2019-05-11] MEDS: Tiotropium 18 MCG inhalation IH SCH (10:03)
[2019-05-11] MEDS ORDERED: 0.9 % Sodium Chloride 2,000 ML ONE (10:26)
[2019-05-11] MEDS ORDERED: Nitroglycerin 1,000 MCG/10 ML VIAL IV ONE (10:26)
[2019-05-11] MEDS ORDERED: *HR* Heparin 10,000 UNIT/10 ML VIAL ONE (10:26)
[2019-05-11] MEDS ORDERED: ISOVUE-370 200 ML INFUS..BTL ONE (10:26)
[2019-05-11] MEDS ORDERED: Heparin 1,000 UNITS/500 mL 500 ML ONE (10:26)
[2019-05-11] MEDS ORDERED: *HR* Midazolam HCl 2 MG/2 ML VIAL ONE (10:43)
[2019-05-11] MEDS ORDERED: *HR* FentaNYL (PF) 100 MCG/2 ML VIAL ONE (10:43)
[2019-05-11] MEDS ORDERED: Verapamil 5 MG/2 ML VIAL ONE (11:10)
[2019-05-11] MEDS: Isosorbide MONOnitrate (24 HR) 30 MG TAB.ER.24H PO SCH (14:00)
[2019-05-11] MEDS: *HR* Heparin 5,000 UNIT/ML VIAL SQ SCH (18:30)
[2019-05-11] MEDS: Thiamine (B-1) 100 MG, Folic Acid 1 MG, MVI, adult with vitamin K 10 ML in 0.9 % Sodi... IVPB SCH (18:30)
[2019-05-11] MEDS: Insulin DETEMIR 100 UNIT/ML X5UNITS SQ SCH (21:23)
[2019-05-12] MEDS: Azithromycin 500 MG in 0.9 % Sodium Chloride 250 ML IVPB SCH (01:16)
[2019-05-12] MEDS: Insulin LISPRO 300 UNITS/3 ML VIAL SQ SCH ×3 (02:19→11:25)
[2019-05-12] MEDS: Ipratropium/Albuterol Neb 3 ML IH SCH ×2 (04:23→11:06)
[2019-05-12] MEDS: *HR* Heparin 5,000 UNIT/ML VIAL SQ SCH (05:42)
[2019-05-12] MEDS: MethylPREDNISolone 40 MG/ML VIAL IVP SCH (05:42)
[2019-05-12 07:24] LABS: BUN/Creatinine Ratio 21 (6-26); Blood Urea Nitrogen 23 mg/dL (6-20); Calcium 9.7 mg/dL (8.6-10.3); Carbon Dioxide 24 mEq/L (23-29); Chloride 100 mEq/L (98-107); Glucose 163 mg/dL (70-105); Osmolality,Calculated 289 (280-300); Potassium 4.5 mEq/L (3.5-5.1); Sodium 136 mEq/L (136-145); eGFR For African Americans > 60 (> 60); eGFR For Non-African Americans > 60 (> 60)
[2019-05-12] MEDS: Tiotropium 18 MCG inhalation IH SCH (07:34)
[2019-05-12] MEDS: Nicotine 21 MG PATCH.TD24 TD SCH (07:55)
[2019-05-12] MEDS: Furosemide 40 MG/4 ML VIAL IVP SCH (07:55)
[2019-05-12] MEDS: Isosorbide MONOnitrate (24 HR) 30 MG TAB.ER.24H PO SCH (07:56)
[2019-05-12] MEDS: Aspirin 81 MG TAB.CHEW PO SCH (07:56)
[2019-05-12] MEDS ORDERED: GuaiFENesin Liq 200 MG/10 ML UDC PO PRN (08:03)
[2019-05-12] MEDS ORDERED: Morphine Sulfate 2 MG/ML SYRINGE IVP ONE (08:03)
[2019-05-12 11:07] VITALS: BP 150/96
[2019-05-12] MEDS ORDERED: FLU Vac QV 19-20 (6Month+)/PF 0.5 ML SYRINGE IM ONE (12:43)
[2019-05-13] MEDS ORDERED: predniSONE 20 MG TABLET PO SCH (09:00)
[2019-05-13] MEDS ORDERED: Azithromycin 250 MG TABLET PO SCH (09:00)
[2019-05-13] MEDS ORDERED: Metoprolol XL (24 HR) Succ 50 MG TAB.ER.24H PO SCH (09:00)
[2019-05-13] MEDS ORDERED: Furosemide 40 MG TABLET PO SCH (09:00)
[2019-05-13] MEDS ORDERED: Folic Acid 1 MG TABLET PO SCH ×2 (09:00)
[2019-05-13] MEDS ORDERED: Vitamin B Complex/Vit C/Vit E 1 EACH TABLET PO SCH ×2 (09:00)
[2019-05-13] MEDS ORDERED: Thiamine (B-1) 100 MG TABLET PO SCH ×2 (09:00)
== END 2019-05-12 13:56 | disposition home or self-care (01) | DRG 192 ==
LOC: EMEROOARM 17:00 → 2NENU 17:00 → SUATTDRO 19:14 → 2NENU 20:00 → 2NNU 05-10 02:01 → SUATTDRO 05-10 16:49
PROVIDERS: ADMIT Internal Medicine; ATTEND Family Medicine

== ENCOUNTER 2019-05-17 17:52 | Inpatient (IN) ==
[2019-05-17] MEDS ORDERED: 0.9 % Sodium Chloride 1,000 ML IVC ONE (18:33)
[2019-05-17] MEDS ORDERED: Metoclopramide 10 MG/2 ML VIAL IVP ONE (18:33)
[2019-05-17 18:50] LABS: Basophils % 0.1 %; Eosinophils # 0.2 K/mcL (0.0-0.6); Eosinophils % 1.7 %; Hematocrit 31.3 % (37.5-50.1); Hemoglobin 10.3 g/dL (12.9-16.9); Immature Granulocytes % 0.3 % (0-4); Lymphocytes # 0.8 K/mcL (0.6-4.6); Lymphocytes % 7.7 %; Mean Corpuscular HGB Conc 32.9 g/dL (31.6-35.5); Mean Corpuscular Hemoglobin 32.9 pg (28.0-33.3); Mean Platelet Volume 11.1 fL (9.4-12.4); Monocytes # 0.7 K/mcL (0.0-1.3); Monocytes % 6.6 %; Neutrophils # 8.8 K/mcL (1.6-8.9); Platelet Count 153 K/mcL (140-400); Red Blood Count 3.13 M/mcL (4.19-5.50); Red Cell Distribution Width 14.6 % (11.5-14.5); Segmented Neutrophils % 83.6 %; White Blood Count 10.5 K/mcL (4.3-11.1)
[2019-05-17 19:10] LABS: Alanine Aminotransferase 34 Units/L (7-52); Albumin 3.8 g/dL (3.5-5.7); Albumin/Globulin Ratio 1.4 (1.1-2.2); Alkaline Phosphatase 94 Units/L (34-104); Aspartate Amino Transferase 34 Units/L (13-39); BUN/Creatinine Ratio 21 (6-26); Bilirubin,Direct 0.2 mg/dL (0.0-0.2); Bilirubin,Indirect 0.5 mg/dL (0.0-1.0); Bilirubin,Total 0.7 mg/dL (0.3-1.0); Blood Urea Nitrogen 28 mg/dL (6-20); Carbon Dioxide 24 mEq/L (23-29); Chloride 99 mEq/L (98-107); Globulin 2.8 g/dL (2.4-3.5); Glucose 111 mg/dL (70-105); Osmolality,Calculated 280 (280-300); Potassium 4.6 mEq/L (3.5-5.1); Sodium 132 mEq/L (136-145); Total Protein 6.6 g/dL (6.4-8.9); Troponin I 0.56 ng/mL (< 0.04); eGFR For African Americans > 60 (> 60); eGFR For Non-African Americans 55 (> 60)
[2019-05-17] MEDS ORDERED: Aspirin 325 MG TABLET PO ONE (19:22)
[2019-05-17 19:34] LABS: Bilirubin,Urine Negative (Negative); Blood,Urine Negative (Negative); Clarity,Urine Clear (Clear); Color,Urine Yellow (Yellow); Glucose,Urine (UA) Normal (Normal); Ketones,Urine Negative (Negative); Leukocyte Esterase,Urine Negative (Negative); Nitrite,Urine Negative (Negative); Protein,Urine Negative (Neg-Trace); Specific Gravity,Urine 1.016 (1.010-1.025); Urobilinogen,Urine Normal (Normal)
[2019-05-17] MEDS ORDERED: Furosemide 40 MG/4 ML VIAL IVP ONE (22:21)
[2019-05-18] MEDS ORDERED: Nicotine 14 MG PATCH.TD24 TD PRN (05:10)
[2019-05-18] MEDS ORDERED: GuaiFENesin Liq 200 MG/10 ML UDC PO PRN (05:11)
[2019-05-18] MEDS ORDERED: Fluticasone Propionate Nasal 50 MCG/SPRAY BOTTLE NS PRN (05:11)
[2019-05-18 05:26] LABS: Basophils % 0.1 %; Eosinophils # 0.2 K/mcL (0.0-0.6); Eosinophils % 2.4 %; Hematocrit 29.3 % (37.5-50.1); Hemoglobin 9.5 g/dL (12.9-16.9); Immature Granulocytes % 0.2 % (0-4); Lymphocytes # 1.3 K/mcL (0.6-4.6); Lymphocytes % 14.7 %; Mean Corpuscular HGB Conc 32.4 g/dL (31.6-35.5); Mean Corpuscular Hemoglobin 32.3 pg (28.0-33.3); Mean Corpuscular Volume 99.7 fL (83.0-100.0); Mean Platelet Volume 10.9 fL (9.4-12.4); Monocytes # 0.8 K/mcL (0.0-1.3); Monocytes % 9.5 %; Neutrophils # 6.3 K/mcL (1.6-8.9); Platelet Count 144 K/mcL (140-400); Red Blood Count 2.94 M/mcL (4.19-5.50); Red Cell Distribution Width 14.3 % (11.5-14.5); Segmented Neutrophils % 73.1 %; White Blood Count 8.6 K/mcL (4.3-11.1)
[2019-05-18 05:42] LABS: Albumin 3.5 g/dL (3.5-5.7); Albumin/Globulin Ratio 1.4 (1.1-2.2); Bilirubin,Total 0.3 mg/dL (0.3-1.0); Calcium 8.7 mg/dL (8.6-10.3); Globulin 2.5 g/dL (2.4-3.5); Potassium 4.2 mEq/L (3.5-5.1)
[2019-05-18 05:46] LABS: Troponin I 0.56 ng/mL (< 0.04)
[2019-05-18] MEDS: Aspirin 81 MG TAB.CHEW PO SCH (08:34)
[2019-05-18] MEDS: Multivit/Ca/Min/Fe/FA 1 TAB TABLET PO SCH (08:34)
[2019-05-18] MEDS: Folic Acid 1 MG TABLET PO SCH (08:35)
[2019-05-18] MEDS: Acetaminophen 325 MG TABLET PO PRN ×2 (08:39→16:54)
[2019-05-18] MEDS ORDERED: [UNRECOGNIZED DRUG - OTHER] PO SCH (09:00)
[2019-05-18] MEDS ORDERED: Metoprolol XL (24 HR) Succ 50 MG TAB.ER.24H PO SCH (09:00)
[2019-05-18] MEDS ORDERED: B6 PO SCH (09:00)
[2019-05-18] MEDS ORDERED: B12 PO SCH (09:00)
[2019-05-18] MEDS ORDERED: LEVOMEFOLATE PO SCH (09:00)
[2019-05-18] MEDS ORDERED: ALGAL OIL PO SCH (09:00)
[2019-05-18] MEDS: Isosorbide MONOnitrate (24 HR) 30 MG TAB.ER.24H PO SCH (12:10)
[2019-05-18] MEDS ORDERED: Loratadine 10 MG TABLET PO PRN (14:17)
[2019-05-18] MEDS ORDERED: *HR* Dextrose 50 % in Water (Syg) 50 ML SYRINGE IVP PRN (15:20)
[2019-05-18] MEDS ORDERED: D5% in Water 1,000 ML IVC PRN (15:20)
[2019-05-18] MEDS ORDERED: Dextrose Gel 15 GM/37.5 ML TUBE PO PRN ×2 (15:20)
[2019-05-18] MEDS: Insulin LISPRO 300 UNITS/3 ML VIAL SQ SCH ×2 (16:50→21:19)
[2019-05-18] MEDS: *HR* Heparin 5,000 UNIT/ML VIAL SQ SCH (21:19)
[2019-05-19] MEDS: Ipratropium/Albuterol Neb 3 ML IH PRN ×2 (03:38→19:54)
[2019-05-19 07:00] LABS: Basophils % 0.2 %; Eosinophils # 0.2 K/mcL (0.0-0.6); Eosinophils % 1.7 %; Hematocrit 28.8 % (37.5-50.1); Hemoglobin 9.5 g/dL (12.9-16.9); Immature Granulocytes % 0.3 % (0-4); Lymphocytes # 1.2 K/mcL (0.6-4.6); Lymphocytes % 13.4 %; Mean Corpuscular Hemoglobin 32.2 pg (28.0-33.3); Mean Corpuscular Volume 97.6 fL (83.0-100.0); Mean Platelet Volume 11.1 fL (9.4-12.4); Monocytes # 1.1 K/mcL (0.0-1.3); Monocytes % 12.2 %; Neutrophils # 6.3 K/mcL (1.6-8.9); Platelet Count 137 K/mcL (140-400); Red Blood Count 2.95 M/mcL (4.19-5.50); Red Cell Distribution Width 14.3 % (11.5-14.5); Segmented Neutrophils % 72.2 %; White Blood Count 8.7 K/mcL (4.3-11.1)
[2019-05-19] MEDS: *HR* Heparin 5,000 UNIT/ML VIAL SQ SCH ×3 (07:08→21:15)
[2019-05-19 07:22] LABS: % Iron Saturation 18 % (20-55); BUN/Creatinine Ratio 22 (6-26); Blood Urea Nitrogen 28 mg/dL (6-20); Calcium 9.2 mg/dL (8.6-10.3); Carbon Dioxide 24 mEq/L (23-29); Chloride 102 mEq/L (98-107); Glucose 143 mg/dL (70-105); Iron 53 mcg/dL (65-175); Osmolality,Calculated 286 (280-300); Potassium 4.6 mEq/L (3.5-5.1); Sodium 134 mEq/L (136-145); Transferrin 215 mg/dL (203-362); eGFR For African Americans > 60 (> 60); eGFR For Non-African Americans 59 (> 60)
[2019-05-19 07:38] LABS: Ferritin 100 ng/mL (20-250)
[2019-05-19] MEDS: Furosemide 40 MG/4 ML VIAL IVP SCH (07:44)
[2019-05-19] MEDS: Aspirin 81 MG TAB.CHEW PO SCH (07:44)
[2019-05-19] MEDS: Finasteride 5 MG TABLET PO SCH (07:44)
[2019-05-19] MEDS: Folic Acid 1 MG TABLET PO SCH (07:44)
[2019-05-19] MEDS: Multivit/Ca/Min/Fe/FA 1 TAB TABLET PO SCH (07:44)
[2019-05-19] MEDS: Thiamine (B-1) 100 MG TABLET PO SCH (07:44)
[2019-05-19] MEDS: Insulin LISPRO 300 UNITS/3 ML VIAL SQ SCH ×4 (07:45→20:21)
[2019-05-19] MEDS: Acetaminophen 325 MG TABLET PO PRN (07:45)
[2019-05-19] MEDS: Metoprolol XL (24 HR) Succ 25 MG TAB.ER.24H PO SCH (07:45)
[2019-05-19 07:47] LABS: Folate > 22.3 ng/mL (3.0-16.0); Vitamin B12 > 1500 pg/mL (250-1100)
[2019-05-19] MEDS: Isosorbide MONOnitrate (24 HR) 30 MG TAB.ER.24H PO SCH (10:23)
[2019-05-19] MEDS: MethylPREDNISolone 40 MG/ML VIAL IVP SCH ×2 (16:09→22:15)
[2019-05-19] MEDS ORDERED: *HR* LORazepam 2 MG/ML VIAL IVP ONE (22:08)
[2019-05-20] MEDS: *HR* Heparin 5,000 UNIT/ML VIAL SQ SCH ×3 (05:03→20:30)
[2019-05-20 05:13] LABS: Hematocrit 30.9 % (37.5-50.1); Immature Granulocytes % 0.7 % (0-4); Lymphocytes # 0.3 K/mcL (0.6-4.6); Lymphocytes % 4.7 %; Mean Corpuscular HGB Conc 32.4 g/dL (31.6-35.5); Mean Corpuscular Hemoglobin 32.7 pg (28.0-33.3); Mean Platelet Volume 11.3 fL (9.4-12.4); Monocytes # 0.1 K/mcL (0.0-1.3); Neutrophils # 5.6 K/mcL (1.6-8.9); Platelet Count 137 K/mcL (140-400); Red Blood Count 3.06 M/mcL (4.19-5.50); Red Cell Distribution Width 13.8 % (11.5-14.5); Segmented Neutrophils % 93.6 %
[2019-05-20 05:30] LABS: BUN/Creatinine Ratio 21 (6-26); Blood Urea Nitrogen 21 mg/dL (6-20); Calcium 9.5 mg/dL (8.6-10.3); Carbon Dioxide 26 mEq/L (23-29); Chloride 100 mEq/L (98-107); Glucose 254 mg/dL (70-105); Osmolality,Calculated 290 (280-300); Potassium 5.4 mEq/L (3.5-5.1); Sodium 134 mEq/L (136-145); eGFR For African Americans > 60 (> 60); eGFR For Non-African Americans > 60 (> 60)
[2019-05-20] MEDS: Thiamine (B-1) 100 MG TABLET PO SCH (07:52)
[2019-05-20] MEDS: MethylPREDNISolone 40 MG/ML VIAL IVP SCH ×2 (07:52→15:18)
[2019-05-20] MEDS: Aspirin 81 MG TAB.CHEW PO SCH (07:52)
[2019-05-20] MEDS: Finasteride 5 MG TABLET PO SCH (07:52)
[2019-05-20] MEDS: Multivit/Ca/Min/Fe/FA 1 TAB TABLET PO SCH (07:52)
[2019-05-20] MEDS: Folic Acid 1 MG TABLET PO SCH (07:52)
[2019-05-20] MEDS: Isosorbide MONOnitrate (24 HR) 30 MG TAB.ER.24H PO SCH (07:52)
[2019-05-20] MEDS: Metoprolol XL (24 HR) Succ 25 MG TAB.ER.24H PO SCH (07:52)
[2019-05-20] MEDS: Furosemide 40 MG/4 ML VIAL IVP SCH (07:53)
[2019-05-20] MEDS: Insulin LISPRO 300 UNITS/3 ML VIAL SQ SCH ×4 (07:59→20:34)
[2019-05-21] MEDS: MethylPREDNISolone 40 MG/ML VIAL IVP SCH ×2 (00:24→08:40)
[2019-05-21] MEDS: Ipratropium/Albuterol Neb 3 ML IH PRN (04:20)
[2019-05-21] MEDS: *HR* Heparin 5,000 UNIT/ML VIAL SQ SCH ×3 (06:16→20:33)
[2019-05-21] MEDS: Finasteride 5 MG TABLET PO SCH (08:40)
[2019-05-21] MEDS: Insulin LISPRO 300 UNITS/3 ML VIAL SQ SCH ×4 (08:40→20:33)
[2019-05-21] MEDS: Thiamine (B-1) 100 MG TABLET PO SCH (08:40)
[2019-05-21] MEDS: Furosemide 40 MG/4 ML VIAL IVP SCH ×2 (08:40→17:21)
[2019-05-21] MEDS: Metoprolol XL (24 HR) Succ 25 MG TAB.ER.24H PO SCH (08:40)
[2019-05-21] MEDS: Isosorbide MONOnitrate (24 HR) 30 MG TAB.ER.24H PO SCH (08:41)
[2019-05-21] MEDS: Multivit/Ca/Min/Fe/FA 1 TAB TABLET PO SCH (08:41)
[2019-05-21] MEDS: Folic Acid 1 MG TABLET PO SCH (08:41)
[2019-05-21] MEDS: Aspirin 81 MG TAB.CHEW PO SCH (08:41)
[2019-05-21] MEDS ORDERED: Levalbuterol Neb 1.25 MG/3 ML ONE (22:43)
[2019-05-21] MEDS: Levalbuterol Neb 1.25 MG/3 ML IH SCH (22:46)
[2019-05-22] MEDS: Levalbuterol Neb 1.25 MG/3 ML IH SCH ×4 (03:54→22:19)
[2019-05-22] MEDS: *HR* Heparin 5,000 UNIT/ML VIAL SQ SCH ×3 (05:32→21:13)
[2019-05-22] MEDS: Thiamine (B-1) 100 MG TABLET PO SCH (09:02)
[2019-05-22] MEDS: Furosemide 40 MG/4 ML VIAL IVP SCH ×2 (09:02→16:28)
[2019-05-22] MEDS: Metoprolol XL (24 HR) Succ 25 MG TAB.ER.24H PO SCH (09:02)
[2019-05-22] MEDS: Isosorbide MONOnitrate (24 HR) 30 MG TAB.ER.24H PO SCH (09:02)
[2019-05-22] MEDS: Folic Acid 1 MG TABLET PO SCH (09:02)
[2019-05-22] MEDS: Multivit/Ca/Min/Fe/FA 1 TAB TABLET PO SCH (09:02)
[2019-05-22] MEDS: Aspirin 81 MG TAB.CHEW PO SCH (09:02)
[2019-05-22] MEDS: Finasteride 5 MG TABLET PO SCH (09:02)
[2019-05-22] MEDS: Insulin LISPRO 300 UNITS/3 ML VIAL SQ SCH ×4 (09:03→21:13)
[2019-05-22] MEDS: predniSONE 20 MG TABLET PO SCH (09:03)
[2019-05-22] MEDS: Azithromycin 250 MG TABLET PO SCH (10:42)
[2019-05-22] MEDS: Tiotropium 18 MCG inhalation IH SCH (10:58)
[2019-05-22 16:48] LABS: Basophils % 0.1 %; Hemoglobin 9.2 g/dL (12.9-16.9); Immature Granulocytes % 0.5 % (0-4); Lymphocytes # 0.6 K/mcL (0.6-4.6); Lymphocytes % 3.9 %; Mean Corpuscular HGB Conc 32.9 g/dL (31.6-35.5); Mean Corpuscular Hemoglobin 33.1 pg (28.0-33.3); Mean Corpuscular Volume 100.7 fL (83.0-100.0); Mean Platelet Volume 11.3 fL (9.4-12.4); Monocytes # 0.7 K/mcL (0.0-1.3); Monocytes % 4.7 %; Platelet Count 146 K/mcL (140-400); Red Blood Count 2.78 M/mcL (4.19-5.50); Red Cell Distribution Width 13.7 % (11.5-14.5); Segmented Neutrophils % 90.8 %
[2019-05-22 16:49] LABS: White Blood Count 15.4 K/mcL (4.3-11.1)
[2019-05-22 17:09] LABS: BUN/Creatinine Ratio 22 (6-26); Blood Urea Nitrogen 28 mg/dL (6-20); Calcium 9.2 mg/dL (8.6-10.3); Carbon Dioxide 26 mEq/L (23-29); Chloride 95 mEq/L (98-107); Glucose 275 mg/dL (70-105); Osmolality,Calculated 291 (280-300); Sodium 133 mEq/L (136-145); eGFR For African Americans > 60 (> 60); eGFR For Non-African Americans 58 (> 60)
[2019-05-23] MEDS: Levalbuterol Neb 1.25 MG/3 ML IH SCH ×4 (04:05→22:21)
[2019-05-23 04:41] LABS: Basophils % 0.1 %; Eosinophils % 0.1 %; Hematocrit 26.6 % (37.5-50.1); Hemoglobin 8.7 g/dL (12.9-16.9); Immature Granulocytes % 0.5 % (0-4); Lymphocytes # 1.8 K/mcL (0.6-4.6); Lymphocytes % 11.5 %; Mean Corpuscular HGB Conc 32.7 g/dL (31.6-35.5); Mean Corpuscular Hemoglobin 32.6 pg (28.0-33.3); Mean Corpuscular Volume 99.6 fL (83.0-100.0); Mean Platelet Volume 10.9 fL (9.4-12.4); Monocytes # 1.3 K/mcL (0.0-1.3); Monocytes % 8.7 %; Neutrophils # 12.1 K/mcL (1.6-8.9); Nucleated Red Blood Cells 0.1 /100 WBC (0); Platelet Count 141 K/mcL (140-400); Red Blood Count 2.67 M/mcL (4.19-5.50); Red Cell Distribution Width 13.9 % (11.5-14.5); Segmented Neutrophils % 79.1 %; White Blood Count 15.2 K/mcL (4.3-11.1)
[2019-05-23 05:00] LABS: BUN/Creatinine Ratio 21 (6-26); Blood Urea Nitrogen 27 mg/dL (6-20); Carbon Dioxide 28 mEq/L (23-29); Chloride 95 mEq/L (98-107); Glucose 202 mg/dL (70-105); Osmolality,Calculated 289 (280-300); Potassium 3.5 mEq/L (3.5-5.1); Sodium 134 mEq/L (136-145); eGFR For African Americans > 60 (> 60); eGFR For Non-African Americans 56 (> 60)
[2019-05-23] MEDS: *HR* Heparin 5,000 UNIT/ML VIAL SQ SCH ×3 (05:49→20:56)
[2019-05-23] MEDS: Furosemide 40 MG/4 ML VIAL IVP SCH ×2 (09:07→18:14)
[2019-05-23] MEDS: Metoprolol XL (24 HR) Succ 25 MG TAB.ER.24H PO SCH (09:07)
[2019-05-23] MEDS: Finasteride 5 MG TABLET PO SCH (09:07)
[2019-05-23] MEDS: Isosorbide MONOnitrate (24 HR) 30 MG TAB.ER.24H PO SCH (09:07)
[2019-05-23] MEDS: Thiamine (B-1) 100 MG TABLET PO SCH (09:07)
[2019-05-23] MEDS: Folic Acid 1 MG TABLET PO SCH (09:08)
[2019-05-23] MEDS: Multivit/Ca/Min/Fe/FA 1 TAB TABLET PO SCH (09:08)
[2019-05-23] MEDS: Aspirin 81 MG TAB.CHEW PO SCH (09:08)
[2019-05-23] MEDS: Azithromycin 250 MG TABLET PO SCH (09:08)
[2019-05-23] MEDS: predniSONE 20 MG TABLET PO SCH (09:09)
[2019-05-23] MEDS: Insulin LISPRO 300 UNITS/3 ML VIAL SQ SCH ×4 (09:13→20:56)
[2019-05-23] MEDS: Tiotropium 18 MCG inhalation IH SCH (10:09)
[2019-05-23] MEDS: Acetaminophen 325 MG TABLET PO PRN (13:47)
[2019-05-24] MEDS: Acetaminophen 325 MG TABLET PO PRN ×2 (01:03→06:56)
[2019-05-24] MEDS: Levalbuterol Neb 1.25 MG/3 ML IH SCH ×2 (04:41→09:43)
[2019-05-24] MEDS: *HR* Heparin 5,000 UNIT/ML VIAL SQ SCH (06:18)
[2019-05-24 07:05] VITALS: BP 143/72
[2019-05-24 07:30] LABS: Basophils % 0.1 %; Eosinophils # 0.1 K/mcL (0.0-0.6); Eosinophils % 0.8 %; Hematocrit 27.8 % (37.5-50.1); Immature Granulocytes % 0.5 % (0-4); Lymphocytes # 1.8 K/mcL (0.6-4.6); Lymphocytes % 11.9 %; Mean Corpuscular HGB Conc 32.4 g/dL (31.6-35.5); Mean Corpuscular Hemoglobin 32.8 pg (28.0-33.3); Mean Corpuscular Volume 101.5 fL (83.0-100.0); Mean Platelet Volume 11.1 fL (9.4-12.4); Monocytes # 0.7 K/mcL (0.0-1.3); Monocytes % 4.9 %; Neutrophils # 12.4 K/mcL (1.6-8.9); Platelet Count 151 K/mcL (140-400); Red Blood Count 2.74 M/mcL (4.19-5.50); Red Cell Distribution Width 14.2 % (11.5-14.5); Segmented Neutrophils % 81.8 %; White Blood Count 15.2 K/mcL (4.3-11.1)
[2019-05-24 07:34] LABS: BUN/Creatinine Ratio 24 (6-26); Blood Urea Nitrogen 26 mg/dL (6-20); Calcium 9.5 mg/dL (8.6-10.3); Carbon Dioxide 32 mEq/L (23-29); Chloride 96 mEq/L (98-107); Glucose 157 mg/dL (70-105); Osmolality,Calculated 294 (280-300); Potassium 3.5 mEq/L (3.5-5.1); Sodium 138 mEq/L (136-145); eGFR For African Americans > 60 (> 60); eGFR For Non-African Americans > 60 (> 60)
[2019-05-24] MEDS: Insulin LISPRO 300 UNITS/3 ML VIAL SQ SCH (07:41)
[2019-05-24] MEDS: Furosemide 40 MG/4 ML VIAL IVP SCH (07:42)
[2019-05-24] MEDS: Isosorbide MONOnitrate (24 HR) 30 MG TAB.ER.24H PO SCH (07:43)
[2019-05-24] MEDS: Multivit/Ca/Min/Fe/FA 1 TAB TABLET PO SCH (07:43)
[2019-05-24] MEDS: Aspirin 81 MG TAB.CHEW PO SCH (07:44)
[2019-05-24] MEDS: Finasteride 5 MG TABLET PO SCH (07:45)
[2019-05-24] MEDS: Folic Acid 1 MG TABLET PO SCH (07:45)
[2019-05-24] MEDS: predniSONE 20 MG TABLET PO SCH (07:45)
[2019-05-24] MEDS: Metoprolol XL (24 HR) Succ 25 MG TAB.ER.24H PO SCH (07:46)
[2019-05-24] MEDS: Azithromycin 250 MG TABLET PO SCH (07:46)
[2019-05-24] MEDS: Thiamine (B-1) 100 MG TABLET PO SCH (07:46)
[2019-05-24] MEDS: Tiotropium 18 MCG inhalation IH SCH (09:43)
== END 2019-05-24 10:36 | disposition home or self-care (01) | DRG 194 ==
LOC: EMEROOARM 17:52 → 2NNU 17:52 → SUATTDRO 23:22 → 2NNU 23:59 → 3ANU 05-20 10:48
PROVIDERS: ADMIT Internal Medicine; ATTEND Internal Medicine

== ENCOUNTER 2019-05-28 15:10 | Inpatient (IN) ==
[2019-05-28] MEDS ORDERED: Ipratropium/Albuterol Neb 3 ML IH ONE (15:23)
[2019-05-28] MEDS ORDERED: methylPREDNISolone 125 MG/2 ML VIAL IVP ONE (15:23)
[2019-05-28 16:21] LABS: White Blood Count 10.3 K/mcL (4.3-11.1)
[2019-05-28 16:22] LABS: Basophils % 0.2 %; Eosinophils # 0.2 K/mcL (0.0-0.6); Eosinophils % 1.7 %; Hematocrit 27.3 % (37.5-50.1); Hemoglobin 9.1 g/dL (12.9-16.9); Immature Granulocytes % 0.6 % (0-4); Lymphocytes # 0.9 K/mcL (0.6-4.6); Mean Corpuscular HGB Conc 33.3 g/dL (31.6-35.5); Mean Corpuscular Hemoglobin 32.7 pg (28.0-33.3); Mean Corpuscular Volume 98.2 fL (83.0-100.0); Mean Platelet Volume 11.2 fL (9.4-12.4); Monocytes # 0.7 K/mcL (0.0-1.3); Monocytes % 6.3 %; Neutrophils # 8.5 K/mcL (1.6-8.9); Platelet Count 169 K/mcL (140-400); Red Blood Count 2.78 M/mcL (4.19-5.50); Red Cell Distribution Width 14.4 % (11.5-14.5); Segmented Neutrophils % 82.2 %
[2019-05-28 16:43] LABS: Calcium 8.9 mg/dL (8.6-10.3); Troponin I 0.05 ng/mL (< 0.04)
[2019-05-28] MEDS ORDERED: Aspirin 81 MG TAB.CHEW PO STA (16:44)
[2019-05-28] MEDS: 0.9 % Sodium Chloride 1,000 ML IVC SCH (17:14)
[2019-05-28] MEDS ORDERED: Pantoprazole 40 MG VIAL IVP ONE (18:12)
[2019-05-28] MEDS ORDERED: Azithromycin 500 MG in 0.9 % Sodium Chloride 250 ML IVPB SCH (20:00)
[2019-05-28] MEDS ORDERED: *HR* Dextrose 50 % in Water (Syg) 50 ML SYRINGE IVP PRN (22:06)
[2019-05-28] MEDS ORDERED: Dextrose Gel 15 GM/37.5 ML TUBE PO PRN ×2 (22:06)
[2019-05-28] MEDS ORDERED: D5% in Water 1,000 ML IVC PRN (22:06)
[2019-05-28 22:53] LABS: Estimated Average Glucose 137 mg/dl
[2019-05-28] MEDS: Ipratropium/Albuterol Neb 3 ML IH SCH (22:54)
[2019-05-28] MEDS: Insulin LISPRO 300 UNITS/3 ML VIAL SQ SCH (22:57)
[2019-05-29] MEDS: MethylPREDNISolone 40 MG/ML VIAL IVP SCH ×4 (00:04→18:18)
[2019-05-29] MEDS: Ipratropium/Albuterol Neb 3 ML IH SCH ×4 (03:42→22:55)
[2019-05-29] MEDS: 0.9 % Sodium Chloride 1,000 ML IVC SCH ×2 (05:28→13:06)
[2019-05-29 07:08] LABS: Hematocrit 26.6 % (37.5-50.1); Hemoglobin 8.8 g/dL (12.9-16.9); Immature Granulocytes % 0.6 % (0-4); Lymphocytes # 0.3 K/mcL (0.6-4.6); Lymphocytes % 3.2 %; Mean Corpuscular HGB Conc 33.1 g/dL (31.6-35.5); Mean Corpuscular Hemoglobin 31.9 pg (28.0-33.3); Mean Corpuscular Volume 96.4 fL (83.0-100.0); Mean Platelet Volume 11.6 fL (9.4-12.4); Monocytes # 0.1 K/mcL (0.0-1.3); Neutrophils # 7.4 K/mcL (1.6-8.9); Platelet Count 167 K/mcL (140-400); Red Blood Count 2.76 M/mcL (4.19-5.50); Red Cell Distribution Width 14.2 % (11.5-14.5); Segmented Neutrophils % 95.2 %; White Blood Count 7.8 K/mcL (4.3-11.1)
[2019-05-29 07:27] LABS: Albumin 3.8 g/dL (3.5-5.7); Albumin/Globulin Ratio 1.3 (1.1-2.2); Bilirubin,Total 0.5 mg/dL (0.3-1.0); Potassium 4.1 mEq/L (3.5-5.1); Total Protein 6.8 g/dL (6.4-8.9)
[2019-05-29] MEDS: Insulin LISPRO 300 UNITS/3 ML VIAL SQ SCH ×3 (07:47→18:19)
[2019-05-29] MEDS: *HR* Heparin 5,000 UNIT/ML VIAL SQ SCH (18:18)
[2019-05-29] MEDS ORDERED: Acetaminophen 325 MG TABLET PO PRN (18:38)
[2019-05-29] MEDS ORDERED: Nitroglycerin 0.4 MG TAB.SUBL SL PRN (18:43)
[2019-05-29] MEDS ORDERED: Nitroglycerin 0.4 MG TAB.SUBL SL ONE (18:47)
[2019-05-29] MEDS ORDERED: NON-FORMULARY MEDICATION 1 EACH EACH (Umeclidinium Bromide [Incruse Ellipta] 1 PUFF) IH SCH (21:00)
[2019-05-29] MEDS: Tiotropium 18 MCG inhalation IH SCH (22:54)
[2019-05-30] MEDS: MethylPREDNISolone 40 MG/ML VIAL IVP SCH ×2 (00:28→06:36)
[2019-05-30 02:47] LABS: VBG HCO3 24 mEq/L (21-27); VBG PCO2 29 mmHg (41-51); VBG PH 7.52 pH Units (7.32-7.42); VBG PO2 132 mmHg (25-50)
[2019-05-30 02:51] LABS: Hematocrit 26.7 % (37.5-50.1); Mean Corpuscular HGB Conc 33.7 g/dL (31.6-35.5); Mean Corpuscular Hemoglobin 32.4 pg (28.0-33.3); Mean Platelet Volume 11.1 fL (9.4-12.4); Platelet Count 187 K/mcL (140-400); Red Blood Count 2.78 M/mcL (4.19-5.50); Red Cell Distribution Width 14.5 % (11.5-14.5); White Blood Count 9.7 K/mcL (4.3-11.1)
[2019-05-30 02:52] LABS: INR 1.1
[2019-05-30] MEDS ORDERED: *HR* LORazepam 2 MG/ML VIAL IVP ONE (03:01)
[2019-05-30 03:03] LABS: Alanine Aminotransferase 24 Units/L (7-52); Albumin 3.8 g/dL (3.5-5.7); Albumin/Globulin Ratio 1.2 (1.1-2.2); Alkaline Phosphatase 78 Units/L (34-104); Aspartate Amino Transferase 17 Units/L (13-39); BUN/Creatinine Ratio 43 (6-26); Bilirubin,Direct 0.1 mg/dL (0.0-0.2); Bilirubin,Indirect 0.5 mg/dL (0.0-1.0); Bilirubin,Total 0.6 mg/dL (0.3-1.0); Blood Urea Nitrogen 59 mg/dL (6-20); Calcium 9.1 mg/dL (8.6-10.3); Carbon Dioxide 22 mEq/L (23-29); Chloride 94 mEq/L (98-107); Globulin 3.1 g/dL (2.4-3.5); Glucose 296 mg/dL (70-105); Magnesium 2.1 mg/dL (1.6-2.6); Osmolality,Calculated 294 (280-300); Potassium 4.4 mEq/L (3.5-5.1); Sodium 128 mEq/L (136-145); Total Protein 6.9 g/dL (6.4-8.9); eGFR For African Americans > 60 (> 60); eGFR For Non-African Americans 54 (> 60)
[2019-05-30] MEDS: Ipratropium/Albuterol Neb 3 ML IH SCH ×4 (04:20→21:52)
[2019-05-30] MEDS: *HR* Heparin 5,000 UNIT/ML VIAL SQ SCH (06:36)
[2019-05-30] MEDS: Metoprolol XL (24 HR) Succ 50 MG TAB.ER.24H PO SCH (08:35)
[2019-05-30] MEDS: Azithromycin 250 MG TABLET PO SCH (08:35)
[2019-05-30] MEDS: Aspirin 81 MG TAB.CHEW PO SCH (08:35)
[2019-05-30] MEDS: Insulin LISPRO 300 UNITS/3 ML VIAL SQ SCH ×3 (08:36→17:01)
[2019-05-30] MEDS: Folic Acid 1 MG TABLET PO SCH (10:42)
[2019-05-30] MEDS: Furosemide 40 MG TABLET PO SCH (10:42)
[2019-05-30] MEDS: Isosorbide MONOnitrate (24 HR) 30 MG TAB.ER.24H PO SCH (10:42)
[2019-05-30] MEDS: Thiamine (B-1) 100 MG TABLET PO SCH (10:42)
[2019-05-30] MEDS: *HR* Enoxaparin 150 MG/ML SYRINGE SQ SCH ×2 (10:42→17:01)
[2019-05-30] MEDS ORDERED: *HR* LORazepam 0.5 MG TABLET PO ONE (21:07)
[2019-05-30] MEDS: Tiotropium 18 MCG inhalation IH SCH (21:52)
[2019-05-31] MEDS: Ipratropium/Albuterol Neb 3 ML IH SCH ×4 (04:25→22:34)
[2019-05-31] MEDS: *HR* Enoxaparin 150 MG/ML SYRINGE SQ SCH ×2 (05:35→17:05)
[2019-05-31 06:06] LABS: Hemoglobin 8.8 g/dL (12.9-16.9); Mean Corpuscular HGB Conc 32.6 g/dL (31.6-35.5); Mean Corpuscular Hemoglobin 31.9 pg (28.0-33.3); Mean Corpuscular Volume 97.8 fL (83.0-100.0); Mean Platelet Volume 11.6 fL (9.4-12.4); Platelet Count 181 K/mcL (140-400); Red Blood Count 2.76 M/mcL (4.19-5.50); Red Cell Distribution Width 14.5 % (11.5-14.5); White Blood Count 12.7 K/mcL (4.3-11.1)
[2019-05-31 06:32] LABS: Troponin I 0.49 ng/mL (< 0.04)
[2019-05-31 06:49] LABS: Alanine Aminotransferase 22 Units/L (7-52); Albumin 3.8 g/dL (3.5-5.7); Albumin/Globulin Ratio 1.3 (1.1-2.2); Alkaline Phosphatase 75 Units/L (34-104); Aspartate Amino Transferase 17 Units/L (13-39); BUN/Creatinine Ratio 42 (6-26); Bilirubin,Direct 0.1 mg/dL (0.0-0.2); Bilirubin,Indirect 0.3 mg/dL (0.0-1.0); Bilirubin,Total 0.4 mg/dL (0.3-1.0); Blood Urea Nitrogen 57 mg/dL (6-20); Calcium 9.5 mg/dL (8.6-10.3); Carbon Dioxide 22 mEq/L (23-29); Chloride 93 mEq/L (98-107); Glucose 275 mg/dL (70-105); Magnesium 2.2 mg/dL (1.6-2.6); Osmolality,Calculated 290 (280-300); Potassium 4.5 mEq/L (3.5-5.1); Sodium 127 mEq/L (136-145); Total Protein 6.8 g/dL (6.4-8.9); eGFR For African Americans > 60 (> 60); eGFR For Non-African Americans 54 (> 60)
[2019-05-31] MEDS: Furosemide 40 MG TABLET PO SCH (07:53)
[2019-05-31] MEDS: predniSONE 20 MG TABLET PO SCH (07:53)
[2019-05-31] MEDS: Thiamine (B-1) 100 MG TABLET PO SCH (07:53)
[2019-05-31] MEDS: Insulin LISPRO 300 UNITS/3 ML VIAL SQ SCH ×3 (07:53→17:03)
[2019-05-31] MEDS: Isosorbide MONOnitrate (24 HR) 30 MG TAB.ER.24H PO SCH (07:53)
[2019-05-31] MEDS: Folic Acid 1 MG TABLET PO SCH (07:54)
[2019-05-31] MEDS: Azithromycin 250 MG TABLET PO SCH (07:54)
[2019-05-31] MEDS: Aspirin 81 MG TAB.CHEW PO SCH (07:54)
[2019-05-31] MEDS: Metoprolol XL (24 HR) Succ 50 MG TAB.ER.24H PO SCH (07:54)
[2019-05-31] MEDS ORDERED: Furosemide 20 MG/2 ML VIAL IVP ONE (14:12)
[2019-05-31] MEDS ORDERED: Furosemide 40 MG/4 ML VIAL IVP ONE (14:30)
[2019-05-31] MEDS ORDERED: Perflutren Lipid Microsphere 1.3 ML in 0.9 % Sodium Chloride 8.7 ML IVP ONE (15:21)
[2019-05-31 15:37] LABS: ABG Base Excess 2 mEq/L (-2 to 3); ABG HCO3 28 mEq/L (21-27); ABG Oxygen Saturation 98 % (95-98); ABG PCO2 44 mmHg (35-45); ABG PO2 98 mmHg (85-104); ABG TCO2 29 mEq/L (20-26)
[2019-05-31 16:08] LABS: % Iron Saturation 15 % (20-55); Iron 51 mcg/dL (65-175); Transferrin 248 mg/dL (203-362)
[2019-05-31] MEDS: Methyl Salicylate/Menthol 57 APPL/57 GM TUBE TP PRN (16:33)
[2019-05-31 16:34] LABS: Folate > 22.3 ng/mL (3.0-16.0); Vitamin B12 > 1500 pg/mL (250-1100)
[2019-05-31 17:44] LABS: Ferritin 110 ng/mL (20-250)
[2019-05-31] MEDS: Acetaminophen 325 MG TABLET PO PRN (20:46)
[2019-06-01] MEDS: Methyl Salicylate/Menthol 57 APPL/57 GM TUBE TP PRN (03:16)
[2019-06-01] MEDS: Ipratropium/Albuterol Neb 3 ML IH SCH ×4 (03:50→22:12)
[2019-06-01] MEDS: *HR* Enoxaparin 150 MG/ML SYRINGE SQ SCH (05:14)
[2019-06-01 05:41] LABS: Hematocrit 25.8 % (37.5-50.1); Hemoglobin 8.6 g/dL (12.9-16.9); Mean Corpuscular HGB Conc 33.3 g/dL (31.6-35.5); Mean Corpuscular Hemoglobin 32.5 pg (28.0-33.3); Mean Corpuscular Volume 97.4 fL (83.0-100.0); Mean Platelet Volume 11.1 fL (9.4-12.4); Platelet Count 183 K/mcL (140-400); Red Blood Count 2.65 M/mcL (4.19-5.50); Red Cell Distribution Width 14.3 % (11.5-14.5); White Blood Count 12.6 K/mcL (4.3-11.1)
[2019-06-01 06:02] LABS: BUN/Creatinine Ratio 40 (6-26); Blood Urea Nitrogen 50 mg/dL (6-20); Calcium 9.6 mg/dL (8.6-10.3); Carbon Dioxide 27 mEq/L (23-29); Chloride 91 mEq/L (98-107); Glucose 212 mg/dL (70-105); Magnesium 2.1 mg/dL (1.6-2.6); Osmolality,Calculated 286 (280-300); Potassium 4.4 mEq/L (3.5-5.1); Sodium 128 mEq/L (136-145); eGFR For African Americans > 60 (> 60); eGFR For Non-African Americans 59 (> 60)
[2019-06-01] MEDS ORDERED: Furosemide 40 MG/4 ML VIAL IVP SCH ×2 (09:00→21:00)
[2019-06-01] MEDS: Insulin LISPRO 300 UNITS/3 ML VIAL SQ SCH ×4 (10:12→23:33)
[2019-06-01] MEDS: Folic Acid 1 MG TABLET PO SCH (10:13)
[2019-06-01] MEDS: Isosorbide MONOnitrate (24 HR) 30 MG TAB.ER.24H PO SCH (10:13)
[2019-06-01] MEDS: Azithromycin 250 MG TABLET PO SCH (10:15)
[2019-06-01] MEDS: Metoprolol XL (24 HR) Succ 50 MG TAB.ER.24H PO SCH (10:15)
[2019-06-01] MEDS: predniSONE 20 MG TABLET PO SCH (10:15)
[2019-06-01] MEDS: Thiamine (B-1) 100 MG TABLET PO SCH (10:15)
[2019-06-01] MEDS: Aspirin 81 MG TAB.CHEW PO SCH (10:16)
[2019-06-01 12:19] LABS: INR 1.1; Prothrombin Time 12.8 Seconds (9.4-12.1)
[2019-06-01] MEDS ORDERED: *HR* Heparin 5,000 UNIT/ML VIAL SQ SCH (18:00)
[2019-06-01] MEDS: Furosemide 40 MG/4 ML VIAL IVP SCH (18:07)
[2019-06-01] MEDS: Apixaban 5 MG TABLET PO SCH (20:56)
[2019-06-02] MEDS: Ipratropium/Albuterol Neb 3 ML IH SCH ×4 (03:32→21:56)
[2019-06-02 05:46] LABS: Hemoglobin 8.2 g/dL (12.9-16.9); Mean Corpuscular HGB Conc 34.2 g/dL (31.6-35.5); Mean Corpuscular Hemoglobin 32.5 pg (28.0-33.3); Mean Corpuscular Volume 95.2 fL (83.0-100.0); Platelet Count 161 K/mcL (140-400); Red Blood Count 2.52 M/mcL (4.19-5.50); Red Cell Distribution Width 14.1 % (11.5-14.5); White Blood Count 9.7 K/mcL (4.3-11.1)
[2019-06-02 06:03] LABS: BUN/Creatinine Ratio 38 (6-26); Blood Urea Nitrogen 44 mg/dL (6-20); Calcium 9.4 mg/dL (8.6-10.3); Carbon Dioxide 28 mEq/L (23-29); Chloride 94 mEq/L (98-107); Glucose 166 mg/dL (70-105); Osmolality,Calculated 285 (280-300); Potassium 4.4 mEq/L (3.5-5.1); Sodium 130 mEq/L (136-145); eGFR For African Americans > 60 (> 60); eGFR For Non-African Americans > 60 (> 60)
[2019-06-02] MEDS: Furosemide 40 MG/4 ML VIAL IVP SCH ×2 (09:00→17:15)
[2019-06-02] MEDS: predniSONE 20 MG TABLET PO SCH (09:01)
[2019-06-02] MEDS: Apixaban 5 MG TABLET PO SCH ×2 (09:01→20:35)
[2019-06-02] MEDS: Isosorbide MONOnitrate (24 HR) 30 MG TAB.ER.24H PO SCH (09:01)
[2019-06-02] MEDS: Thiamine (B-1) 100 MG TABLET PO SCH (09:01)
[2019-06-02] MEDS: Insulin LISPRO 300 UNITS/3 ML VIAL SQ SCH ×4 (09:02→20:35)
[2019-06-02] MEDS: Metoprolol XL (24 HR) Succ 50 MG TAB.ER.24H PO SCH (09:02)
[2019-06-02] MEDS: Folic Acid 1 MG TABLET PO SCH (09:02)
[2019-06-02] MEDS: Azithromycin 250 MG TABLET PO SCH (09:02)
[2019-06-03] MEDS: Ipratropium/Albuterol Neb 3 ML IH SCH ×4 (03:52→22:41)
[2019-06-03] MEDS: Metoprolol XL (24 HR) Succ 50 MG TAB.ER.24H PO SCH (08:12)
[2019-06-03] MEDS: Apixaban 5 MG TABLET PO SCH ×2 (08:12→21:05)
[2019-06-03] MEDS: Folic Acid 1 MG TABLET PO SCH (08:12)
[2019-06-03] MEDS: Isosorbide MONOnitrate (24 HR) 30 MG TAB.ER.24H PO SCH (08:13)
[2019-06-03] MEDS: Furosemide 40 MG/4 ML VIAL IVP SCH ×2 (08:13→16:37)
[2019-06-03] MEDS: predniSONE 20 MG TABLET PO SCH (08:13)
[2019-06-03] MEDS: Insulin LISPRO 300 UNITS/3 ML VIAL SQ SCH ×4 (08:14→21:04)
[2019-06-03] MEDS: Thiamine (B-1) 100 MG TABLET PO SCH (08:18)
[2019-06-03 08:41] LABS: BUN/Creatinine Ratio 32 (6-26); Blood Urea Nitrogen 37 mg/dL (6-20); Calcium 9.2 mg/dL (8.6-10.3); Carbon Dioxide 27 mEq/L (23-29); Chloride 95 mEq/L (98-107); Glucose 197 mg/dL (70-105); Osmolality,Calculated 286 (280-300); Potassium 3.9 mEq/L (3.5-5.1); Sodium 131 mEq/L (136-145); eGFR For African Americans > 60 (> 60); eGFR For Non-African Americans > 60 (> 60)
[2019-06-03] MEDS: Insulin DETEMIR 100 UNIT/ML X5UNITS SQ SCH (14:23)
[2019-06-04] MEDS: Ipratropium/Albuterol Neb 3 ML IH SCH ×3 (04:17→16:59)
[2019-06-04 04:53] LABS: BUN/Creatinine Ratio 27 (6-26); Blood Urea Nitrogen 33 mg/dL (6-20); Calcium 9.1 mg/dL (8.6-10.3); Carbon Dioxide 27 mEq/L (23-29); Chloride 96 mEq/L (98-107); Glucose 194 mg/dL (70-105); Osmolality,Calculated 285 (280-300); Potassium 4.2 mEq/L (3.5-5.1); Sodium 131 mEq/L (136-145); eGFR For African Americans > 60 (> 60); eGFR For Non-African Americans > 60 (> 60)
[2019-06-04] MEDS: Insulin LISPRO 300 UNITS/3 ML VIAL SQ SCH ×4 (07:32→21:38)
[2019-06-04] MEDS: Isosorbide MONOnitrate (24 HR) 30 MG TAB.ER.24H PO SCH (07:33)
[2019-06-04] MEDS: Metoprolol XL (24 HR) Succ 50 MG TAB.ER.24H PO SCH (07:33)
[2019-06-04] MEDS: predniSONE 20 MG TABLET PO SCH (07:33)
[2019-06-04] MEDS: Thiamine (B-1) 100 MG TABLET PO SCH (07:33)
[2019-06-04] MEDS: Folic Acid 1 MG TABLET PO SCH (07:33)
[2019-06-04] MEDS: Furosemide 40 MG/4 ML VIAL IVP SCH (07:33)
[2019-06-04] MEDS: Apixaban 5 MG TABLET PO SCH ×2 (07:33→21:38)
[2019-06-04] MEDS: Insulin DETEMIR 100 UNIT/ML X5UNITS SQ SCH (07:38)
[2019-06-04] MEDS ORDERED: Furosemide 240 MG in 0.9 % Sodium Chloride 96 ML IVC SCH (12:15)
[2019-06-05] MEDS: Ipratropium/Albuterol Neb 3 ML IH SCH ×5 (00:01→22:40)
[2019-06-05] MEDS: Insulin LISPRO 300 UNITS/3 ML VIAL SQ SCH ×4 (08:44→20:24)
[2019-06-05] MEDS: Folic Acid 1 MG TABLET PO SCH (08:45)
[2019-06-05] MEDS: Thiamine (B-1) 100 MG TABLET PO SCH (08:45)
[2019-06-05] MEDS: Isosorbide MONOnitrate (24 HR) 30 MG TAB.ER.24H PO SCH (08:45)
[2019-06-05] MEDS: Apixaban 5 MG TABLET PO SCH ×2 (08:45→20:49)
[2019-06-05] MEDS: Insulin DETEMIR 100 UNIT/ML X5UNITS SQ SCH (08:45)
[2019-06-05] MEDS: Metoprolol XL (24 HR) Succ 50 MG TAB.ER.24H PO SCH (08:45)
[2019-06-05 11:14] LABS: Hematocrit 24.1 % (37.5-50.1); Hemoglobin 8.1 g/dL (12.9-16.9); Mean Corpuscular HGB Conc 33.6 g/dL (31.6-35.5); Mean Corpuscular Hemoglobin 32.5 pg (28.0-33.3); Mean Corpuscular Volume 96.8 fL (83.0-100.0); Mean Platelet Volume 11.1 fL (9.4-12.4); Platelet Count 177 K/mcL (140-400); Red Blood Count 2.49 M/mcL (4.19-5.50); Red Cell Distribution Width 13.9 % (11.5-14.5); White Blood Count 16.3 K/mcL (4.3-11.1)
[2019-06-05 11:19] LABS: BUN/Creatinine Ratio 30 (6-26); Blood Urea Nitrogen 34 mg/dL (6-20); Calcium 8.6 mg/dL (8.6-10.3); Carbon Dioxide 29 mEq/L (23-29); Chloride 95 mEq/L (98-107); Glucose 262 mg/dL (70-105); Osmolality,Calculated 289 (280-300); Potassium 4.1 mEq/L (3.5-5.1); Sodium 131 mEq/L (136-145); eGFR For African Americans > 60 (> 60); eGFR For Non-African Americans > 60 (> 60)
[2019-06-05] MEDS: Furosemide 240 MG in 0.9 % Sodium Chloride 96 ML IVC SCH (12:24)
[2019-06-05] MEDS ORDERED: *HR* OxyCODONE Immed Rel 5 MG TABLET PO ONE (14:10)
[2019-06-05] MEDS: Acetaminophen 325 MG TABLET PO PRN (20:49)
[2019-06-06] MEDS: Furosemide 240 MG in 0.9 % Sodium Chloride 96 ML IVC SCH (00:13)
[2019-06-06] MEDS: Ipratropium/Albuterol Neb 3 ML IH SCH ×4 (03:48→22:19)
[2019-06-06] MEDS: Metoprolol XL (24 HR) Succ 50 MG TAB.ER.24H PO SCH (08:39)
[2019-06-06] MEDS: Thiamine (B-1) 100 MG TABLET PO SCH (08:39)
[2019-06-06] MEDS: Apixaban 5 MG TABLET PO SCH ×2 (08:40→20:00)
[2019-06-06] MEDS: Folic Acid 1 MG TABLET PO SCH (08:40)
[2019-06-06] MEDS: Isosorbide MONOnitrate (24 HR) 30 MG TAB.ER.24H PO SCH (08:40)
[2019-06-06] MEDS: Insulin LISPRO 300 UNITS/3 ML VIAL SQ SCH ×4 (08:40→19:58)
[2019-06-06] MEDS: Insulin DETEMIR 100 UNIT/ML X5UNITS SQ SCH (08:43)
[2019-06-06 11:17] LABS: Hematocrit 23.5 % (37.5-50.1); Hemoglobin 7.5 g/dL (12.9-16.9); Mean Corpuscular HGB Conc 31.9 g/dL (31.6-35.5); Mean Corpuscular Hemoglobin 32.2 pg (28.0-33.3); Mean Corpuscular Volume 100.9 fL (83.0-100.0); Mean Platelet Volume 11.1 fL (9.4-12.4); Platelet Count 136 K/mcL (140-400); Red Blood Count 2.33 M/mcL (4.19-5.50); Red Cell Distribution Width 14.1 % (11.5-14.5); White Blood Count 15.6 K/mcL (4.3-11.1)
[2019-06-06 11:37] LABS: BUN/Creatinine Ratio 24 (6-26); Blood Urea Nitrogen 29 mg/dL (6-20); Calcium 8.4 mg/dL (8.6-10.3); Carbon Dioxide 29 mEq/L (23-29); Chloride 95 mEq/L (98-107); Glucose 195 mg/dL (70-105); Magnesium 1.8 mg/dL (1.6-2.6); Osmolality,Calculated 283 (280-300); Sodium 131 mEq/L (136-145); eGFR For African Americans > 60 (> 60); eGFR For Non-African Americans > 60 (> 60)
[2019-06-06] MEDS: Methyl Salicylate/Menthol 57 APPL/57 GM TUBE TP PRN ×2 (12:27→20:05)
[2019-06-06] MEDS ORDERED: 0.9 % Sodium Chloride 250 ML ONE (14:16)
[2019-06-06] MEDS ORDERED: Furosemide 240 MG in 0.9 % Sodium Chloride 96 ML IVC SCH (23:15)
[2019-06-06] MEDS: Benzonatate 100 MG CAPSULE PO PRN (23:41)
[2019-06-06] MEDS: Acetaminophen 325 MG TABLET PO PRN (23:41)
[2019-06-07] MEDS: Ipratropium/Albuterol Neb 3 ML IH SCH ×4 (03:44→22:07)
[2019-06-07 04:28] LABS: Basophils % 0.1 %; Eosinophils # 0.2 K/mcL (0.0-0.6); Eosinophils % 1.2 %; Hematocrit 25.5 % (37.5-50.1); Hemoglobin 8.7 g/dL (12.9-16.9); Immature Granulocytes % 0.5 % (0-4); Lymphocytes # 0.9 K/mcL (0.6-4.6); Lymphocytes % 6.9 %; Mean Corpuscular HGB Conc 34.1 g/dL (31.6-35.5); Mean Corpuscular Hemoglobin 32.6 pg (28.0-33.3); Mean Corpuscular Volume 95.5 fL (83.0-100.0); Mean Platelet Volume 11.2 fL (9.4-12.4); Monocytes # 0.9 K/mcL (0.0-1.3); Monocytes % 6.4 %; Neutrophils # 11.4 K/mcL (1.6-8.9); Platelet Count 145 K/mcL (140-400); Red Blood Count 2.67 M/mcL (4.19-5.50); Red Cell Distribution Width 14.6 % (11.5-14.5); Segmented Neutrophils % 84.9 %; White Blood Count 13.4 K/mcL (4.3-11.1)
[2019-06-07 04:46] LABS: BUN/Creatinine Ratio 25 (6-26); Blood Urea Nitrogen 34 mg/dL (6-20); Calcium 8.9 mg/dL (8.6-10.3); Carbon Dioxide 29 mEq/L (23-29); Chloride 92 mEq/L (98-107); Glucose 219 mg/dL (70-105); Osmolality,Calculated 282 (280-300); Potassium 4.4 mEq/L (3.5-5.1); Sodium 129 mEq/L (136-145); eGFR For African Americans > 60 (> 60); eGFR For Non-African Americans 54 (> 60)
[2019-06-07] MEDS: Acetaminophen 325 MG TABLET PO PRN (05:31)
[2019-06-07] MEDS: Insulin LISPRO 300 UNITS/3 ML VIAL SQ SCH ×4 (08:55→20:42)
[2019-06-07] MEDS: Insulin DETEMIR 100 UNIT/ML X5UNITS SQ SCH (08:58)
[2019-06-07] MEDS: Apixaban 5 MG TABLET PO SCH ×2 (08:59→20:41)
[2019-06-07] MEDS: Thiamine (B-1) 100 MG TABLET PO SCH (09:00)
[2019-06-07] MEDS: Folic Acid 1 MG TABLET PO SCH (09:01)
[2019-06-07] MEDS: Metoprolol XL (24 HR) Succ 50 MG TAB.ER.24H PO SCH (09:02)
[2019-06-07] MEDS: Isosorbide MONOnitrate (24 HR) 30 MG TAB.ER.24H PO SCH (09:02)
[2019-06-07 13:48] LABS: BUN/Creatinine Ratio 26 (6-26); Blood Urea Nitrogen 32 mg/dL (6-20); Calcium 8.9 mg/dL (8.6-10.3); Carbon Dioxide 29 mEq/L (23-29); Chloride 93 mEq/L (98-107); Glucose 236 mg/dL (70-105); Osmolality,Calculated 281 (280-300); Potassium 4.2 mEq/L (3.5-5.1); Sodium 128 mEq/L (136-145); eGFR For African Americans > 60 (> 60); eGFR For Non-African Americans 60 (> 60)
[2019-06-07] MEDS: Furosemide 240 MG in 0.9 % Sodium Chloride 96 ML IVC SCH ×2 (16:46→20:48)
[2019-06-08] MEDS: Ipratropium/Albuterol Neb 3 ML IH SCH ×4 (04:05→22:58)
[2019-06-08 05:11] LABS: BUN/Creatinine Ratio 22 (6-26); Blood Urea Nitrogen 27 mg/dL (6-20); Calcium 8.8 mg/dL (8.6-10.3); Carbon Dioxide 29 mEq/L (23-29); Chloride 93 mEq/L (98-107); Glucose 166 mg/dL (70-105); Osmolality,Calculated 279 (280-300); Potassium 4.3 mEq/L (3.5-5.1); Sodium 130 mEq/L (136-145); eGFR For African Americans > 60 (> 60); eGFR For Non-African Americans 59 (> 60)
[2019-06-08] MEDS: Insulin LISPRO 300 UNITS/3 ML VIAL SQ SCH ×7 (07:53→20:57)
[2019-06-08] MEDS: Folic Acid 1 MG TABLET PO SCH (07:54)
[2019-06-08] MEDS: Insulin DETEMIR 100 UNIT/ML X5UNITS SQ SCH (07:54)
[2019-06-08] MEDS: Acetaminophen 325 MG TABLET PO PRN ×2 (07:54→16:37)
[2019-06-08] MEDS: Apixaban 5 MG TABLET PO SCH ×2 (07:54→21:06)
[2019-06-08] MEDS: Metoprolol XL (24 HR) Succ 50 MG TAB.ER.24H PO SCH (07:55)
[2019-06-08] MEDS: Isosorbide MONOnitrate (24 HR) 30 MG TAB.ER.24H PO SCH (07:55)
[2019-06-08] MEDS: Thiamine (B-1) 100 MG TABLET PO SCH (07:55)
[2019-06-08] MEDS: Benzonatate 100 MG CAPSULE PO PRN (11:56)
[2019-06-08] MEDS: Furosemide 240 MG in 0.9 % Sodium Chloride 96 ML IVC SCH (12:48)
[2019-06-09] MEDS ORDERED: Ipratropium/Albuterol Neb 3 ML IH ONE (01:53)
[2019-06-09] MEDS: Ipratropium/Albuterol Neb 3 ML IH SCH ×4 (03:49→21:44)
[2019-06-09] MEDS: Furosemide 240 MG in 0.9 % Sodium Chloride 96 ML IVC SCH ×2 (05:09→20:22)
[2019-06-09 05:39] LABS: Hematocrit 25.3 % (37.5-50.1); Hemoglobin 8.3 g/dL (12.9-16.9); Mean Corpuscular HGB Conc 32.8 g/dL (31.6-35.5); Mean Corpuscular Hemoglobin 31.6 pg (28.0-33.3); Mean Corpuscular Volume 96.2 fL (83.0-100.0); Mean Platelet Volume 11.3 fL (9.4-12.4); Platelet Count 138 K/mcL (140-400); Red Blood Count 2.63 M/mcL (4.19-5.50); Red Cell Distribution Width 13.7 % (11.5-14.5); White Blood Count 10.5 K/mcL (4.3-11.1)
[2019-06-09 06:01] LABS: BUN/Creatinine Ratio 22 (6-26); Blood Urea Nitrogen 28 mg/dL (6-20); Calcium 8.8 mg/dL (8.6-10.3); Carbon Dioxide 30 mEq/L (23-29); Chloride 92 mEq/L (98-107); Glucose 163 mg/dL (70-105); Magnesium 1.7 mg/dL (1.6-2.6); Osmolality,Calculated 283 (280-300); Potassium 3.6 mEq/L (3.5-5.1); Sodium 132 mEq/L (136-145); eGFR For African Americans > 60 (> 60); eGFR For Non-African Americans 58 (> 60)
[2019-06-09] MEDS: Apixaban 5 MG TABLET PO SCH ×2 (08:23→20:58)
[2019-06-09] MEDS: Folic Acid 1 MG TABLET PO SCH (08:23)
[2019-06-09] MEDS: Thiamine (B-1) 100 MG TABLET PO SCH (08:23)
[2019-06-09] MEDS: Metoprolol XL (24 HR) Succ 50 MG TAB.ER.24H PO SCH (08:23)
[2019-06-09] MEDS: Isosorbide MONOnitrate (24 HR) 30 MG TAB.ER.24H PO SCH (08:23)
[2019-06-09] MEDS: Insulin LISPRO 300 UNITS/3 ML VIAL SQ SCH ×7 (08:24→21:00)
[2019-06-09] MEDS: Insulin DETEMIR 100 UNIT/ML X5UNITS SQ SCH (08:25)
[2019-06-10] MEDS: Ipratropium/Albuterol Neb 3 ML IH SCH ×2 (03:44→10:38)
[2019-06-10 05:24] LABS: Hematocrit 24.5 % (37.5-50.1); Hemoglobin 8.2 g/dL (12.9-16.9); Mean Corpuscular HGB Conc 33.5 g/dL (31.6-35.5); Mean Corpuscular Volume 95.7 fL (83.0-100.0); Mean Platelet Volume 10.7 fL (9.4-12.4); Platelet Count 134 K/mcL (140-400); Red Blood Count 2.56 M/mcL (4.19-5.50); Red Cell Distribution Width 13.3 % (11.5-14.5); White Blood Count 9.7 K/mcL (4.3-11.1)
[2019-06-10 05:45] LABS: BUN/Creatinine Ratio 19 (6-26); Blood Urea Nitrogen 20 mg/dL (6-20); Calcium 8.5 mg/dL (8.6-10.3); Carbon Dioxide 31 mEq/L (23-29); Chloride 90 mEq/L (98-107); Glucose 155 mg/dL (70-105); Magnesium 1.7 mg/dL (1.6-2.6); Osmolality,Calculated 278 (280-300); Potassium 3.4 mEq/L (3.5-5.1); Sodium 131 mEq/L (136-145); eGFR For African Americans > 60 (> 60); eGFR For Non-African Americans > 60 (> 60)
[2019-06-10] MEDS: Thiamine (B-1) 100 MG TABLET PO SCH (08:36)
[2019-06-10] MEDS: Apixaban 5 MG TABLET PO SCH (08:36)
[2019-06-10] MEDS: Isosorbide MONOnitrate (24 HR) 30 MG TAB.ER.24H PO SCH (08:37)
[2019-06-10] MEDS: Insulin LISPRO 300 UNITS/3 ML VIAL SQ SCH ×4 (08:37→11:45)
[2019-06-10] MEDS: Metoprolol XL (24 HR) Succ 50 MG TAB.ER.24H PO SCH (08:37)
[2019-06-10] MEDS: Insulin DETEMIR 100 UNIT/ML X5UNITS SQ SCH (08:37)
[2019-06-10] MEDS: Folic Acid 1 MG TABLET PO SCH (08:37)
[2019-06-10 11:34] VITALS: BP 111/61
[2019-06-10] MEDS: Furosemide 240 MG in 0.9 % Sodium Chloride 96 ML IVC SCH (12:51)
== END 2019-06-10 15:38 | disposition short-term general hospital (02) | DRG 190 ==
LOC: EMEROOARM 15:10 → 2ANU 15:10 → SUATTDRO 19:39 → 2ANU 20:52 → SUATTDRO 05-30 10:42
PROVIDERS: ADMIT Family Medicine; ATTEND Internal Medicine

== ENCOUNTER 2019-07-08 13:34 | Inpatient (IN) ==
[2019-07-08 14:20] LABS: Basophils % 0.2 %; Eosinophils # 0.1 K/mcL (0.0-0.6); Eosinophils % 1.6 %; Hematocrit 22.1 % (37.5-50.1); Immature Granulocytes % 0.4 % (0-4); Lymphocytes # 0.3 K/mcL (0.6-4.6); Lymphocytes % 3.9 %; Mean Corpuscular HGB Conc 31.7 g/dL (31.6-35.5); Mean Corpuscular Hemoglobin 30.6 pg (28.0-33.3); Mean Corpuscular Volume 96.5 fL (83.0-100.0); Mean Platelet Volume 9.8 fL (9.4-12.4); Monocytes # 0.7 K/mcL (0.0-1.3); Monocytes % 8.3 %; Neutrophils # 6.9 K/mcL (1.6-8.9); Platelet Count 191 K/mcL (140-400); Red Blood Count 2.29 M/mcL (4.19-5.50); Red Cell Distribution Width 14.4 % (11.5-14.5); Segmented Neutrophils % 85.6 %; White Blood Count 8.1 K/mcL (4.3-11.1)
[2019-07-08 14:24] LABS: Bilirubin,Urine Small (Negative); Blood,Urine Large (Negative); Color,Urine Yellow (Yellow); Glucose,Urine (UA) Normal (Normal); Ketones,Urine Negative (Negative); Leukocyte Esterase,Urine Large (Negative); Nitrite,Urine Negative (Negative); PH,Urine 5.5 pH Units (5.0-8.0); Protein,Urine 30 mg/dL (Neg-Trace); Urobilinogen,Urine Normal (Normal)
[2019-07-08 14:29] LABS: Bacteria,Urine None Seen per hpf (None-Few)
[2019-07-08 14:29] LABS: Amphetamine Screen,Urine Negative ng/mL (Cutoff=1000); Barbiturate Screen,Urine Negative ng/mL (Cutoff=200); Benzodiazepines Screen,Urine Negative ng/mL (Cutoff=200); Cannabinoid Screen,Urine Negative ng/mL (Cutoff = 50); Cocaine Screen,Urine Negative ng/mL (Cutoff= 300); Opiate Screen,Urine Positive ng/mL (Cutoff=300); Phencyclidine Screen,Urine Negative ng/mL (Cutoff=25)
[2019-07-08 14:31] LABS: Clarity,Urine Hazy (Clear)
[2019-07-08 14:44] LABS: Alanine Aminotransferase 11 Units/L (7-52); Albumin 3.4 g/dL (3.5-5.7); Albumin/Globulin Ratio 1.2 (1.1-2.2); Alkaline Phosphatase 77 Units/L (34-104); Aspartate Amino Transferase 15 Units/L (13-39); BUN/Creatinine Ratio 26 (6-26); Bilirubin,Direct 0.2 mg/dL (0.0-0.2); Bilirubin,Indirect 0.3 mg/dL (0.0-1.0); Bilirubin,Total 0.5 mg/dL (0.3-1.0); Blood Urea Nitrogen 58 mg/dL (6-20); Calcium 8.8 mg/dL (8.6-10.3); Carbon Dioxide 26 mEq/L (23-29); Chloride 88 mEq/L (98-107); Ethanol < 10 mg/dL (Less than 10); Globulin 2.9 g/dL (2.4-3.5); Glucose 93 mg/dL (70-105); Osmolality,Calculated 272 (280-300); Potassium 4.6 mEq/L (3.5-5.1); Sodium 123 mEq/L (136-145); Total Protein 6.3 g/dL (6.4-8.9); Troponin I 0.03 ng/mL (< 0.04); eGFR For African Americans 36 (> 60); eGFR For Non-African Americans 30 (> 60)
[2019-07-08 14:48] LABS: Squamous Epithelial Cell,Urine Few per lpf (None-Few); Transitional Epi Cells,Urine Few per hpf (None-Few)
[2019-07-08 14:50] LABS: Mucus,Urine Moderate per lpf (Few)
[2019-07-08] MEDS ORDERED: Naloxone 0.4 MG/ML INJ IVP PRN (16:58)
[2019-07-08] MEDS ORDERED: Ondansetron ODT 4 MG TAB.RAPDIS SL PRN (16:58)
[2019-07-08] MEDS ORDERED: Furosemide 40 MG/4 ML VIAL IVP SCH ×2 (17:05→21:00)
[2019-07-08] MEDS ORDERED: *HR* Dextrose 50 % in Water (Syg) 50 ML SYRINGE IVP PRN (17:08)
[2019-07-08] MEDS ORDERED: D5% in Water 1,000 ML IVC PRN (17:08)
[2019-07-08] MEDS ORDERED: Dextrose Gel 15 GM/37.5 ML TUBE PO PRN ×2 (17:08)
[2019-07-08] MEDS ORDERED: *HR* LORazepam 2 MG/ML VIAL IVP PRN ×3 (17:12)
[2019-07-08] MEDS ORDERED: Albumin 25% 25gram/100mL 25 GM/100 ML IV.SOLN IVPB ONE (17:23)
[2019-07-08 17:32] LABS: ABG Base Excess 2 mEq/L (-2 to 3); ABG HCO3 27 mEq/L (21-27); ABG Oxygen Saturation 97 % (95-98); ABG PCO2 45 mmHg (35-45); ABG PH 7.38 pH Units (7.32-7.45); ABG PO2 98 mmHg (85-104); ABG TCO2 28 mEq/L (20-26)
[2019-07-08 17:55] LABS: % Iron Saturation 5 % (20-55); Iron 20 mcg/dL (65-175); Transferrin 280 mg/dL (203-362)
[2019-07-08 18:08] LABS: Ferritin 51 ng/mL (20-250)
[2019-07-08 18:32] LABS: Hematocrit 22.6 % (37.5-50.1); Hemoglobin 7.1 g/dL (12.9-16.9)
[2019-07-08] MEDS: predniSONE 20 MG TABLET PO SCH (18:39)
[2019-07-08] MEDS: cefTRIAXone 1,000 MG in Water for inj. (sterile) 10 ML IVP SCH (18:39)
[2019-07-08 18:56] LABS: Calcium 8.8 mg/dL (8.6-10.3); Potassium 4.6 mEq/L (3.5-5.1)
[2019-07-08] MEDS: Insulin LISPRO 300 UNITS/3 ML VIAL SQ SCH (19:35)
[2019-07-08] MEDS: Ipratropium/Albuterol Neb 3 ML IH SCH (19:55)
[2019-07-08] MEDS: Furosemide 40 MG/4 ML VIAL IVP SCH ×2 (21:16→21:22)
[2019-07-09] MEDS: Ipratropium/Albuterol Neb 3 ML IH SCH ×7 (00:07→23:35)
[2019-07-09] MEDS ORDERED: *HR* LORazepam 2 MG/ML VIAL IVP ONE (00:22)
[2019-07-09 00:42] LABS: Hematocrit 22.5 % (37.5-50.1); Hemoglobin 7.4 g/dL (12.9-16.9)
[2019-07-09 00:43] LABS: Hematocrit 22.5 % (37.5-50.1); Hemoglobin 7.4 g/dL (12.9-16.9); Mean Corpuscular HGB Conc 32.9 g/dL (31.6-35.5); Mean Corpuscular Hemoglobin 30.3 pg (28.0-33.3); Mean Corpuscular Volume 92.2 fL (83.0-100.0); Mean Platelet Volume 10.5 fL (9.4-12.4); Platelet Count 215 K/mcL (140-400); Red Blood Count 2.44 M/mcL (4.19-5.50); Red Cell Distribution Width 14.5 % (11.5-14.5); White Blood Count 7.7 K/mcL (4.3-11.1)
[2019-07-09 00:44] LABS: Potassium 5.5 mEq/L (3.5-5.1)
[2019-07-09] MEDS: Nystatin POWDER 30 GM BOTTLE TP SCH ×4 (00:55→21:01)
[2019-07-09 05:47] LABS: Calcium 8.8 mg/dL (8.6-10.3); Potassium 5.3 mEq/L (3.5-5.1)
[2019-07-09] MEDS ORDERED: Furosemide 20 MG/2 ML VIAL IVP ONE (07:19)
[2019-07-09] MEDS ORDERED: 0.9 % Sodium Chloride 250 ML IVC SCH (07:30)
[2019-07-09] MEDS: cefTRIAXone 1,000 MG in Water for inj. (sterile) 10 ML IVP SCH (08:16)
[2019-07-09] MEDS: Furosemide 40 MG/4 ML VIAL IVP SCH ×2 (08:17→21:01)
[2019-07-09] MEDS: Insulin LISPRO 300 UNITS/3 ML VIAL SQ SCH ×4 (08:18→21:02)
[2019-07-09] MEDS: Folic Acid 1 MG TABLET PO SCH ×2 (08:18→12:26)
[2019-07-09] MEDS: Vitamin B Complex/Vit C/Vit E 1 EACH TABLET PO SCH ×2 (08:18→12:26)
[2019-07-09] MEDS: Thiamine (B-1) 100 MG TABLET PO SCH ×2 (08:18→12:26)
[2019-07-09] MEDS: predniSONE 20 MG TABLET PO SCH ×2 (10:30→12:27)
[2019-07-09] MEDS: Iron Sucrose Complex 200 MG in 0.9 % Sodium Chloride 100 ML IVPB SCH (12:27)
[2019-07-09 14:04] LABS: Calcium 8.8 mg/dL (8.6-10.3); Potassium 4.7 mEq/L (3.5-5.1)
[2019-07-09 14:14] LABS: Hematocrit 23.5 % (37.5-50.1); Hemoglobin 7.7 g/dL (12.9-16.9)
[2019-07-09] MEDS: *HR* OxyCODONE Immed Rel 5 MG TABLET PO PRN (17:47)
[2019-07-09 17:49] LABS: Calcium 8.9 mg/dL (8.6-10.3); Potassium 4.5 mEq/L (3.5-5.1)
[2019-07-09] MEDS: Albuterol 2.5 MG/3 ML NEBULIZER IH PRN (18:16)
[2019-07-09 21:58] LABS: Hematocrit 24.7 % (37.5-50.1)
[2019-07-09 22:17] LABS: Calcium 9.1 mg/dL (8.6-10.3); Potassium 4.7 mEq/L (3.5-5.1)
[2019-07-10] MEDS ORDERED: *HR* LORazepam 2 MG/ML VIAL IVP ONE (01:43)
[2019-07-10] MEDS: Albuterol 2.5 MG/3 ML NEBULIZER IH PRN (01:54)
[2019-07-10] MEDS: Ipratropium/Albuterol Neb 3 ML IH SCH (03:24)
[2019-07-10] MEDS: Levalbuterol Neb 1.25 MG/3 ML IH SCH ×5 (03:49→19:42)
[2019-07-10] MEDS ORDERED: Levalbuterol Neb 1.25 MG/3 ML IH SCH (04:00)
[2019-07-10 06:42] LABS: Hematocrit 25.2 % (37.5-50.1); Hemoglobin 8.2 g/dL (12.9-16.9); Mean Corpuscular HGB Conc 32.5 g/dL (31.6-35.5); Mean Corpuscular Hemoglobin 29.6 pg (28.0-33.3); Mean Platelet Volume 10.1 fL (9.4-12.4); Platelet Count 236 K/mcL (140-400); Red Blood Count 2.77 M/mcL (4.19-5.50); Red Cell Distribution Width 15.2 % (11.5-14.5); White Blood Count 7.6 K/mcL (4.3-11.1)
[2019-07-10 06:53] LABS: Calcium 9.2 mg/dL (8.6-10.3); Potassium 4.5 mEq/L (3.5-5.1)
[2019-07-10] MEDS ORDERED: Albumin 25% 25gram/100mL 25 GM/100 ML IV.SOLN IVPB ONE (07:13)
[2019-07-10] MEDS: Insulin LISPRO 300 UNITS/3 ML VIAL SQ SCH ×3 (08:50→18:21)
[2019-07-10] MEDS: Folic Acid 1 MG TABLET PO SCH (08:51)
[2019-07-10] MEDS: Thiamine (B-1) 100 MG TABLET PO SCH ×2 (08:51)
[2019-07-10] MEDS: Metoprolol XL (24 HR) Succ 25 MG TAB.ER.24H PO SCH (08:51)
[2019-07-10] MEDS: Vitamin B Complex/Vit C/Vit E 1 EACH TABLET PO SCH (08:51)
[2019-07-10] MEDS: predniSONE 20 MG TABLET PO SCH (08:51)
[2019-07-10] MEDS: Apixaban 5 MG TABLET PO SCH ×2 (08:52→21:00)
[2019-07-10] MEDS: Fluticasone Propionate Nasal 50 MCG/SPRAY BOTTLE NS SCH (08:52)
[2019-07-10] MEDS: Furosemide 40 MG/4 ML VIAL IVP SCH ×3 (08:52→21:00)
[2019-07-10] MEDS: Nystatin POWDER 30 GM BOTTLE TP SCH ×3 (08:53→21:00)
[2019-07-10] MEDS ORDERED: Gabapentin 300 MG CAPSULE PO SCH (09:00)
[2019-07-10 09:30] LABS: ABG Base Excess 3 mEq/L (-2 to 3); ABG HCO3 28 mEq/L (21-27); ABG Oxygen Saturation 96 % (95-98); ABG PCO2 47 mmHg (35-45); ABG PH 7.38 pH Units (7.32-7.45); ABG PO2 84 mmHg (85-104); ABG TCO2 30 mEq/L (20-26)
[2019-07-10] MEDS: Iron Sucrose Complex 200 MG in 0.9 % Sodium Chloride 100 ML IVPB SCH (10:38)
[2019-07-10] MEDS: *HR* OxyCODONE Immed Rel 5 MG TABLET PO PRN ×2 (13:29→18:20)
[2019-07-10] MEDS: Tiotropium 18 MCG inhalation IH SCH (19:43)
[2019-07-10] MEDS: Gabapentin 300 MG CAPSULE PO SCH (21:00)
[2019-07-10] MEDS ORDERED: NON-FORMULARY MEDICATION 1 EACH EACH (Umeclidinium Bromide [Incruse Ellipta] 1 PUFF) IH SCH (21:00)
[2019-07-11 01:46] LABS: Hemoglobin 8.2 g/dL (12.9-16.9); Mean Corpuscular HGB Conc 32.8 g/dL (31.6-35.5); Mean Corpuscular Hemoglobin 29.6 pg (28.0-33.3); Mean Corpuscular Volume 90.3 fL (83.0-100.0); Mean Platelet Volume 9.7 fL (9.4-12.4); Platelet Count 211 K/mcL (140-400); Red Blood Count 2.77 M/mcL (4.19-5.50); White Blood Count 6.7 K/mcL (4.3-11.1)
[2019-07-11 01:59] LABS: BUN/Creatinine Ratio 45 (6-26); Blood Urea Nitrogen 64 mg/dL (6-20); Calcium 9.5 mg/dL (8.6-10.3); Carbon Dioxide 26 mEq/L (23-29); Chloride 88 mEq/L (98-107); Glucose 145 mg/dL (70-105); Osmolality,Calculated 279 (280-300); Potassium 4.4 mEq/L (3.5-5.1); Sodium 124 mEq/L (136-145); eGFR For African Americans > 60 (> 60); eGFR For Non-African Americans 51 (> 60)
[2019-07-11 02:00] LABS: Phosphorous 4.7 mg/dL (2.7-4.5); Uric Acid 15.5 mg/dL (2.3-7.6)
[2019-07-11 02:14] LABS: Thyroid Stimulating Hormone 1.24 mcIU/mL (0.340-5.600)
[2019-07-11] MEDS: Levalbuterol Neb 1.25 MG/3 ML IH SCH ×6 (04:02→20:10)
[2019-07-11] MEDS: *HR* OxyCODONE Immed Rel 5 MG TABLET PO PRN ×4 (05:09→21:17)
[2019-07-11] MEDS: Insulin LISPRO 300 UNITS/3 ML VIAL SQ SCH ×5 (05:10→21:18)
[2019-07-11] MEDS ORDERED: Tolvaptan 15 MG TABLET PO ONE (09:49)
[2019-07-11] MEDS: Gabapentin 300 MG CAPSULE PO SCH ×2 (10:45→21:17)
[2019-07-11] MEDS: Apixaban 5 MG TABLET PO SCH ×2 (10:45→21:17)
[2019-07-11] MEDS: Thiamine (B-1) 100 MG TABLET PO SCH ×3 (10:46→10:58)
[2019-07-11] MEDS: Vitamin B Complex/Vit C/Vit E 1 EACH TABLET PO SCH (10:47)
[2019-07-11] MEDS: Folic Acid 1 MG TABLET PO SCH (10:47)
[2019-07-11] MEDS: predniSONE 20 MG TABLET PO SCH (10:47)
[2019-07-11] MEDS: Metoprolol XL (24 HR) Succ 25 MG TAB.ER.24H PO SCH (10:47)
[2019-07-11] MEDS: Iron Sucrose Complex 200 MG in 0.9 % Sodium Chloride 100 ML IVPB SCH (10:59)
[2019-07-11] MEDS: Nystatin POWDER 30 GM BOTTLE TP SCH ×3 (10:59→21:37)
[2019-07-11] MEDS: Furosemide 40 MG/4 ML VIAL IVP SCH ×3 (11:00→21:19)
[2019-07-11] MEDS: Fluticasone Propionate Nasal 50 MCG/SPRAY BOTTLE NS SCH (11:00)
[2019-07-11] MEDS: Tiotropium 18 MCG inhalation IH SCH (20:10)
[2019-07-12] MEDS: Levalbuterol Neb 1.25 MG/3 ML IH SCH ×6 (00:06→19:57)
[2019-07-12 02:54] LABS: Hematocrit 24.2 % (37.5-50.1); Mean Corpuscular HGB Conc 33.1 g/dL (31.6-35.5); Mean Corpuscular Hemoglobin 30.3 pg (28.0-33.3); Mean Corpuscular Volume 91.7 fL (83.0-100.0); Mean Platelet Volume 9.6 fL (9.4-12.4); Platelet Count 189 K/mcL (140-400); Red Blood Count 2.64 M/mcL (4.19-5.50); Red Cell Distribution Width 14.9 % (11.5-14.5); White Blood Count 6.5 K/mcL (4.3-11.1)
[2019-07-12 03:17] LABS: Albumin 3.8 g/dL (3.5-5.7); Albumin/Globulin Ratio 1.3 (1.1-2.2); BUN/Creatinine Ratio 50 (6-26); Bilirubin,Direct 0.1 mg/dL (0.0-0.2); Bilirubin,Indirect 0.3 mg/dL (0.0-1.0); Bilirubin,Total 0.4 mg/dL (0.3-1.0); Blood Urea Nitrogen 63 mg/dL (6-20); Calcium 9.5 mg/dL (8.6-10.3); Carbon Dioxide 30 mEq/L (23-29); Chloride 88 mEq/L (98-107); Glucose 195 mg/dL (70-105); Osmolality,Calculated 289 (280-300); Potassium 4.2 mEq/L (3.5-5.1); Sodium 128 mEq/L (136-145); Total Protein 6.8 g/dL (6.4-8.9); eGFR For African Americans > 60 (> 60); eGFR For Non-African Americans 58 (> 60)
[2019-07-12] MEDS ORDERED: Tolvaptan 15 MG TABLET PO ONE (08:14)
[2019-07-12] MEDS: predniSONE 20 MG TABLET PO SCH (09:28)
[2019-07-12] MEDS: Vitamin B Complex/Vit C/Vit E 1 EACH TABLET PO SCH (09:28)
[2019-07-12] MEDS: Thiamine (B-1) 100 MG TABLET PO SCH (09:28)
[2019-07-12] MEDS: Metoprolol XL (24 HR) Succ 25 MG TAB.ER.24H PO SCH (09:29)
[2019-07-12] MEDS: Folic Acid 1 MG TABLET PO SCH (09:29)
[2019-07-12] MEDS: Gabapentin 300 MG CAPSULE PO SCH ×2 (09:29→21:26)
[2019-07-12] MEDS: Furosemide 40 MG/4 ML VIAL IVP SCH ×3 (09:29→21:27)
[2019-07-12] MEDS: Insulin LISPRO 300 UNITS/3 ML VIAL SQ SCH ×4 (09:30→21:38)
[2019-07-12] MEDS: Apixaban 5 MG TABLET PO SCH ×2 (09:33→21:26)
[2019-07-12] MEDS: Nystatin POWDER 30 GM BOTTLE TP SCH ×3 (09:35→21:56)
[2019-07-12] MEDS: Fluticasone Propionate Nasal 50 MCG/SPRAY BOTTLE NS SCH (10:21)
[2019-07-12] MEDS: *HR* OxyCODONE Immed Rel 5 MG TABLET PO PRN ×2 (17:26→23:35)
[2019-07-12] MEDS: Tiotropium 18 MCG inhalation IH SCH (19:57)
[2019-07-13] MEDS: Levalbuterol Neb 1.25 MG/3 ML IH SCH ×6 (03:49→20:19)
[2019-07-13 06:06] LABS: Hematocrit 25.7 % (37.5-50.1); Hemoglobin 8.4 g/dL (12.9-16.9); Mean Corpuscular HGB Conc 32.7 g/dL (31.6-35.5); Mean Corpuscular Hemoglobin 30.1 pg (28.0-33.3); Mean Corpuscular Volume 92.1 fL (83.0-100.0); Mean Platelet Volume 9.9 fL (9.4-12.4); Platelet Count 211 K/mcL (140-400); Red Blood Count 2.79 M/mcL (4.19-5.50); Red Cell Distribution Width 14.8 % (11.5-14.5); White Blood Count 5.8 K/mcL (4.3-11.1)
[2019-07-13 06:53] LABS: BUN/Creatinine Ratio 50 (6-26); Blood Urea Nitrogen 54 mg/dL (6-20); Calcium 9.7 mg/dL (8.6-10.3); Carbon Dioxide 31 mEq/L (23-29); Chloride 93 mEq/L (98-107); Glucose 231 mg/dL (70-105); Osmolality,Calculated 280 (280-300); Potassium 3.6 mEq/L (3.5-5.1); Sodium 124 mEq/L (136-145); eGFR For African Americans > 60 (> 60); eGFR For Non-African Americans > 60 (> 60)
[2019-07-13] MEDS ORDERED: Tolvaptan 15 MG TABLET PO ONE (07:59)
[2019-07-13] MEDS: Furosemide 40 MG/4 ML VIAL IVP SCH ×3 (08:25→22:19)
[2019-07-13] MEDS: Fluticasone Propionate Nasal 50 MCG/SPRAY BOTTLE NS SCH (08:27)
[2019-07-13] MEDS: Insulin LISPRO 300 UNITS/3 ML VIAL SQ SCH ×4 (08:27→22:20)
[2019-07-13] MEDS: Metoprolol XL (24 HR) Succ 25 MG TAB.ER.24H PO SCH (08:28)
[2019-07-13] MEDS: Folic Acid 1 MG TABLET PO SCH (08:29)
[2019-07-13] MEDS: predniSONE 20 MG TABLET PO SCH (08:29)
[2019-07-13] MEDS: Gabapentin 300 MG CAPSULE PO SCH ×2 (08:29→22:19)
[2019-07-13] MEDS: *HR* OxyCODONE Immed Rel 5 MG TABLET PO PRN (08:29)
[2019-07-13] MEDS: Thiamine (B-1) 100 MG TABLET PO SCH (08:29)
[2019-07-13] MEDS: Apixaban 5 MG TABLET PO SCH ×2 (08:29→22:19)
[2019-07-13] MEDS: Nystatin POWDER 30 GM BOTTLE TP SCH ×3 (08:30→22:20)
[2019-07-13] MEDS: Vitamin B Complex/Vit C/Vit E 1 EACH TABLET PO SCH (08:30)
[2019-07-13] MEDS: Tiotropium 18 MCG inhalation IH SCH (22:01)
[2019-07-13] MEDS: Insulin DETEMIR 100 UNIT/ML X5UNITS SQ SCH (22:29)
[2019-07-14] MEDS: Levalbuterol Neb 1.25 MG/3 ML IH SCH ×7 (00:46→23:35)
[2019-07-14 05:49] LABS: Hematocrit 26.5 % (37.5-50.1); Hemoglobin 8.2 g/dL (12.9-16.9); Mean Corpuscular HGB Conc 30.9 g/dL (31.6-35.5); Mean Corpuscular Hemoglobin 29.6 pg (28.0-33.3); Mean Corpuscular Volume 95.7 fL (83.0-100.0); Mean Platelet Volume 10.1 fL (9.4-12.4); Platelet Count 208 K/mcL (140-400); Red Blood Count 2.77 M/mcL (4.19-5.50); Red Cell Distribution Width 15.1 % (11.5-14.5)
[2019-07-14] MEDS: Furosemide 40 MG/4 ML VIAL IVP SCH ×3 (07:54→21:15)
[2019-07-14] MEDS: Fluticasone Propionate Nasal 50 MCG/SPRAY BOTTLE NS SCH (07:57)
[2019-07-14] MEDS: Thiamine (B-1) 100 MG TABLET PO SCH (07:57)
[2019-07-14] MEDS: Gabapentin 300 MG CAPSULE PO SCH ×2 (07:57→21:14)
[2019-07-14] MEDS: Nystatin POWDER 30 GM BOTTLE TP SCH ×3 (07:57→21:15)
[2019-07-14] MEDS: Insulin LISPRO 300 UNITS/3 ML VIAL SQ SCH ×4 (07:57→21:15)
[2019-07-14] MEDS: Vitamin B Complex/Vit C/Vit E 1 EACH TABLET PO SCH (07:57)
[2019-07-14] MEDS: Metoprolol XL (24 HR) Succ 25 MG TAB.ER.24H PO SCH (07:58)
[2019-07-14] MEDS: Folic Acid 1 MG TABLET PO SCH (07:58)
[2019-07-14] MEDS: Apixaban 5 MG TABLET PO SCH ×2 (07:58→21:14)
[2019-07-14 10:12] LABS: BUN/Creatinine Ratio 39 (6-26); Blood Urea Nitrogen 41 mg/dL (6-20); Calcium 10.4 mg/dL (8.6-10.3); Carbon Dioxide 37 mEq/L (23-29); Chloride 90 mEq/L (98-107); Glucose 159 mg/dL (70-105); Osmolality,Calculated 297 (280-300); Potassium 3.5 mEq/L (3.5-5.1); Sodium 137 mEq/L (136-145); eGFR For African Americans > 60 (> 60); eGFR For Non-African Americans > 60 (> 60)
[2019-07-14 13:21] LABS: VBG HCO3 37 mEq/L (21-27); VBG PCO2 56 mmHg (41-51); VBG PH 7.43 pH Units (7.32-7.42); VBG PO2 116 mmHg (25-50)
[2019-07-14] MEDS: Benzonatate 100 MG CAPSULE PO PRN (17:02)
[2019-07-14] MEDS: Tiotropium 18 MCG inhalation IH SCH (20:02)
[2019-07-14] MEDS: *HR* OxyCODONE Immed Rel 5 MG TABLET PO PRN (21:14)
[2019-07-14] MEDS: Insulin DETEMIR 100 UNIT/ML X5UNITS SQ SCH (21:14)
[2019-07-15] MEDS: Levalbuterol Neb 1.25 MG/3 ML IH SCH ×5 (03:59→20:33)
[2019-07-15 05:50] LABS: Basophils % 0.2 %; Eosinophils # 0.2 K/mcL (0.0-0.6); Eosinophils % 2.7 %; Hematocrit 29.1 % (37.5-50.1); Hemoglobin 8.8 g/dL (12.9-16.9); Immature Granulocytes % 0.4 % (0-4); Lymphocytes # 1.4 K/mcL (0.6-4.6); Lymphocytes % 15.1 %; Mean Corpuscular HGB Conc 30.2 g/dL (31.6-35.5); Mean Corpuscular Hemoglobin 29.1 pg (28.0-33.3); Mean Corpuscular Volume 96.4 fL (83.0-100.0); Mean Platelet Volume 10.1 fL (9.4-12.4); Monocytes # 0.7 K/mcL (0.0-1.3); Monocytes % 8.3 %; Neutrophils # 6.5 K/mcL (1.6-8.9); Platelet Count 209 K/mcL (140-400); Red Blood Count 3.02 M/mcL (4.19-5.50); Segmented Neutrophils % 73.3 %; White Blood Count 8.9 K/mcL (4.3-11.1)
[2019-07-15 05:57] LABS: VBG HCO3 38 mEq/L (21-27); VBG PCO2 57 mmHg (41-51); VBG PH 7.44 pH Units (7.32-7.42); VBG PO2 129 mmHg (25-50)
[2019-07-15] MEDS: *HR* OxyCODONE Immed Rel 5 MG TABLET PO PRN ×4 (06:08→22:29)
[2019-07-15 06:15] LABS: BUN/Creatinine Ratio 35 (6-26); Blood Urea Nitrogen 29 mg/dL (6-20); Calcium 9.8 mg/dL (8.6-10.3); Chloride 93 mEq/L (98-107); Glucose 121 mg/dL (70-105); Osmolality,Calculated 289 (280-300); Potassium 3.4 mEq/L (3.5-5.1); Sodium 136 mEq/L (136-145); eGFR For African Americans > 60 (> 60); eGFR For Non-African Americans > 60 (> 60)
[2019-07-15 06:24] LABS: Carbon Dioxide 35 mEq/L (23-29)
[2019-07-15] MEDS: Vitamin B Complex/Vit C/Vit E 1 EACH TABLET PO SCH (08:13)
[2019-07-15] MEDS: Thiamine (B-1) 100 MG TABLET PO SCH (08:13)
[2019-07-15] MEDS: Metoprolol XL (24 HR) Succ 25 MG TAB.ER.24H PO SCH (08:14)
[2019-07-15] MEDS: Gabapentin 300 MG CAPSULE PO SCH ×2 (08:14→22:28)
[2019-07-15] MEDS: Folic Acid 1 MG TABLET PO SCH (08:14)
[2019-07-15] MEDS: Fluticasone Propionate Nasal 50 MCG/SPRAY BOTTLE NS SCH (08:14)
[2019-07-15] MEDS: Apixaban 5 MG TABLET PO SCH ×2 (08:14→22:29)
[2019-07-15] MEDS: Insulin LISPRO 300 UNITS/3 ML VIAL SQ SCH ×4 (08:15→22:21)
[2019-07-15] MEDS ORDERED: Furosemide 40 MG/4 ML VIAL IVP ONE (08:51)
[2019-07-15] MEDS: Nystatin POWDER 30 GM BOTTLE TP SCH ×3 (09:37→22:22)
[2019-07-15] MEDS: Benzonatate 100 MG CAPSULE PO PRN ×3 (09:43→22:29)
[2019-07-15] MEDS: Tiotropium 18 MCG inhalation IH SCH (20:33)
[2019-07-15] MEDS: Insulin DETEMIR 100 UNIT/ML X5UNITS SQ SCH (22:29)
[2019-07-16] MEDS: Levalbuterol Neb 1.25 MG/3 ML IH SCH ×5 (00:08→15:36)
[2019-07-16 06:35] LABS: BUN/Creatinine Ratio 26 (6-26); Blood Urea Nitrogen 24 mg/dL (6-20); Calcium 9.3 mg/dL (8.6-10.3); Carbon Dioxide 38 mEq/L (23-29); Chloride 89 mEq/L (98-107); Glucose 108 mg/dL (70-105); Osmolality,Calculated 289 (280-300); Potassium 3.6 mEq/L (3.5-5.1); Sodium 137 mEq/L (136-145); eGFR For African Americans > 60 (> 60); eGFR For Non-African Americans > 60 (> 60)
[2019-07-16 06:36] VITALS: BP 115/66
[2019-07-16] MEDS: Insulin LISPRO 300 UNITS/3 ML VIAL SQ SCH ×2 (09:46→13:14)
[2019-07-16] MEDS: Folic Acid 1 MG TABLET PO SCH (09:59)
[2019-07-16] MEDS: Thiamine (B-1) 100 MG TABLET PO SCH (09:59)
[2019-07-16] MEDS: Vitamin B Complex/Vit C/Vit E 1 EACH TABLET PO SCH (09:59)
[2019-07-16] MEDS: Apixaban 5 MG TABLET PO SCH (09:59)
[2019-07-16] MEDS: Gabapentin 300 MG CAPSULE PO SCH (10:00)
[2019-07-16] MEDS: Fluticasone Propionate Nasal 50 MCG/SPRAY BOTTLE NS SCH (10:01)
[2019-07-16] MEDS: Nystatin POWDER 30 GM BOTTLE TP SCH (10:01)
[2019-07-16] MEDS: Metoprolol XL (24 HR) Succ 25 MG TAB.ER.24H PO SCH (10:01)
== END 2019-07-16 15:45 | disposition home health service (06) | DRG 194 ==
LOC: EMEROOARM 13:34 → 2ANU 13:34 → SUATTDRO 16:01 → 2ANU 16:28 → SUATTDRO 07-10 13:10
PROVIDERS: ADMIT Family Medicine; ATTEND Internal Medicine

== ENCOUNTER 2019-07-17 18:35 | Inpatient (IN) ==
[2019-07-17 19:47] LABS: Basophils % 0.2 %; Eosinophils # 0.1 K/mcL (0.0-0.6); Eosinophils % 0.9 %; Hematocrit 28.5 % (37.5-50.1); Hemoglobin 8.9 g/dL (12.9-16.9); Immature Granulocytes % 0.3 % (0-4); Lymphocytes # 0.8 K/mcL (0.6-4.6); Lymphocytes % 7.2 %; Mean Corpuscular HGB Conc 31.2 g/dL (31.6-35.5); Mean Corpuscular Hemoglobin 29.7 pg (28.0-33.3); Mean Platelet Volume 9.7 fL (9.4-12.4); Monocytes # 0.6 K/mcL (0.0-1.3); Monocytes % 6.1 %; Neutrophils # 8.9 K/mcL (1.6-8.9); Platelet Count 170 K/mcL (140-400); Red Cell Distribution Width 14.5 % (11.5-14.5); Segmented Neutrophils % 85.3 %; White Blood Count 10.5 K/mcL (4.3-11.1)
[2019-07-17 20:05] LABS: BUN/Creatinine Ratio 17 (6-26); Blood Urea Nitrogen 21 mg/dL (6-20); Calcium 9.4 mg/dL (8.6-10.3); Carbon Dioxide 36 mEq/L (23-29); Chloride 90 mEq/L (98-107); Glucose 106 mg/dL (70-105); Osmolality,Calculated 279 (280-300); Potassium 3.7 mEq/L (3.5-5.1); Sodium 133 mEq/L (136-145); eGFR For African Americans > 60 (> 60); eGFR For Non-African Americans > 60 (> 60)
[2019-07-17 20:10] LABS: Troponin I 0.06 ng/mL (< 0.04)
[2019-07-17 20:31] LABS: Bilirubin,Urine Negative (Negative); Blood,Urine Negative (Negative); Clarity,Urine Clear (Clear); Color,Urine Yellow (Yellow); Glucose,Urine (UA) Normal (Normal); Ketones,Urine Negative (Negative); Leukocyte Esterase,Urine Trace (Negative); Nitrite,Urine Negative (Negative); PH,Urine 7.5 pH Units (5.0-8.0); Protein,Urine Negative (Neg-Trace); Specific Gravity,Urine 1.014 (1.010-1.025); Urobilinogen,Urine Normal (Normal)
[2019-07-17 20:33] LABS: Bacteria,Urine None Seen per hpf (None-Few); Hyaline Casts,Urine None Seen per lpf (None-Few); RBC,Urine 0-3 per hpf (0-3); Squamous Epithelial Cell,Urine Many per lpf (None-Few)
[2019-07-17 21:55] LABS: INR 1.4; Prothrombin Time 15.9 Seconds (9.4-12.1)
[2019-07-17] MEDS ORDERED: Naloxone 0.4 MG/ML INJ IVP PRN ×2 (22:56→22:58)
[2019-07-17] MEDS ORDERED: Ondansetron ODT 4 MG TAB.RAPDIS SL PRN (22:58)
[2019-07-17] MEDS ORDERED: Mag Hydrox/Al Hydrox/Simeth 30 ML UDC PO PRN (22:58)
[2019-07-17] MEDS ORDERED: Benzonatate 100 MG CAPSULE PO PRN (23:04)
[2019-07-17] MEDS: Tiotropium 18 MCG inhalation IH SCH (23:36)
[2019-07-17] MEDS: Furosemide 20 MG TABLET PO SCH (23:59)
[2019-07-18] MEDS: Acetaminophen 325 MG TABLET PO PRN (00:04)
[2019-07-18] MEDS: *HR* OxyCODONE Immed Rel 5 MG TABLET PO PRN ×3 (00:50→16:03)
[2019-07-18 03:39] LABS: Basophils % 0.2 %; Eosinophils # 0.3 K/mcL (0.0-0.6); Eosinophils % 3.5 %; Hematocrit 27.9 % (37.5-50.1); Hemoglobin 8.6 g/dL (12.9-16.9); Immature Granulocytes % 0.4 % (0-4); Lymphocytes # 1.1 K/mcL (0.6-4.6); Lymphocytes % 12.5 %; Mean Corpuscular HGB Conc 30.8 g/dL (31.6-35.5); Mean Corpuscular Hemoglobin 29.4 pg (28.0-33.3); Mean Corpuscular Volume 95.2 fL (83.0-100.0); Mean Platelet Volume 10.4 fL (9.4-12.4); Monocytes # 0.8 K/mcL (0.0-1.3); Monocytes % 8.8 %; Neutrophils # 6.3 K/mcL (1.6-8.9); Platelet Count 166 K/mcL (140-400); Red Blood Count 2.93 M/mcL (4.19-5.50); Red Cell Distribution Width 14.5 % (11.5-14.5); Segmented Neutrophils % 74.6 %; White Blood Count 8.5 K/mcL (4.3-11.1)
[2019-07-18 03:45] LABS: BUN/Creatinine Ratio 17 (6-26); Blood Urea Nitrogen 25 mg/dL (6-20); Calcium 8.7 mg/dL (8.6-10.3); Carbon Dioxide 35 mEq/L (23-29); Chloride 92 mEq/L (98-107); Glucose 96 mg/dL (70-105); Magnesium 1.2 mg/dL (1.6-2.6); Osmolality,Calculated 278 (280-300); Potassium 3.5 mEq/L (3.5-5.1); Sodium 132 mEq/L (136-145); eGFR For African Americans > 60 (> 60); eGFR For Non-African Americans 51 (> 60)
[2019-07-18] MEDS: Furosemide 20 MG TABLET PO SCH (09:18)
[2019-07-18] MEDS: Gabapentin 300 MG CAPSULE PO SCH ×3 (09:19→22:18)
[2019-07-18] MEDS: Apixaban 5 MG TABLET PO SCH ×3 (09:19→22:17)
[2019-07-18] MEDS: Loratadine 10 MG TABLET PO SCH (09:19)
[2019-07-18] MEDS: Metoprolol XL (24 HR) Succ 25 MG TAB.ER.24H PO SCH (09:20)
[2019-07-18] MEDS: Folic Acid 1 MG TABLET PO SCH (09:20)
[2019-07-18] MEDS: Insulin LISPRO 300 UNITS/3 ML VIAL SQ SCH ×5 (09:21→22:16)
[2019-07-18] MEDS: Fluticasone Propionate Nasal 50 MCG/SPRAY BOTTLE NS SCH (09:21)
[2019-07-18] MEDS: Ipratropium/Albuterol Neb 3 ML IH PRN (20:52)
[2019-07-18] MEDS: Tiotropium 18 MCG inhalation IH SCH (20:59)
[2019-07-18] MEDS ORDERED: Furosemide 40 MG/4 ML VIAL IVP SCH (21:00)
[2019-07-18] MEDS: Insulin DETEMIR 100 UNIT/ML X5UNITS SQ SCH ×2 (22:15)
[2019-07-19] MEDS: Acetaminophen 325 MG TABLET PO PRN ×2 (05:00→19:58)
[2019-07-19 06:26] LABS: Calcium 8.1 mg/dL (8.6-10.3); Magnesium 1.3 mg/dL (1.6-2.6); Phosphorous 5.3 mg/dL (2.7-4.5); Potassium 3.9 mEq/L (3.5-5.1)
[2019-07-19] MEDS ORDERED: 0.9 % Sodium Chloride 500 ML IVC ONE ×2 (08:42→09:52)
[2019-07-19] MEDS: Insulin LISPRO 300 UNITS/3 ML VIAL SQ SCH ×4 (08:43→19:59)
[2019-07-19] MEDS ORDERED: 0.9 % Sodium Chloride 500 ML ONE (08:45)
[2019-07-19] MEDS: Apixaban 5 MG TABLET PO SCH ×2 (08:48→19:59)
[2019-07-19] MEDS: Loratadine 10 MG TABLET PO SCH (08:48)
[2019-07-19] MEDS: Folic Acid 1 MG TABLET PO SCH (08:49)
[2019-07-19] MEDS: Metoprolol XL (24 HR) Succ 25 MG TAB.ER.24H PO SCH (08:49)
[2019-07-19 09:10] LABS: Basophils % 0.1 %; Eosinophils # 0.3 K/mcL (0.0-0.6); Hematocrit 27.7 % (37.5-50.1); Hemoglobin 8.4 g/dL (12.9-16.9); Immature Granulocytes % 0.2 % (0-4); Lymphocytes # 1.1 K/mcL (0.6-4.6); Lymphocytes % 12.2 %; Mean Corpuscular HGB Conc 30.3 g/dL (31.6-35.5); Mean Corpuscular Hemoglobin 29.4 pg (28.0-33.3); Mean Corpuscular Volume 96.9 fL (83.0-100.0); Mean Platelet Volume 10.5 fL (9.4-12.4); Monocytes # 0.7 K/mcL (0.0-1.3); Monocytes % 8.3 %; Neutrophils # 6.7 K/mcL (1.6-8.9); Platelet Count 157 K/mcL (140-400); Red Blood Count 2.86 M/mcL (4.19-5.50); Red Cell Distribution Width 14.6 % (11.5-14.5); Segmented Neutrophils % 76.2 %; White Blood Count 8.7 K/mcL (4.3-11.1)
[2019-07-19 09:15] LABS: ABG Base Excess 13 mEq/L (-2 to 3); ABG HCO3 38 mEq/L (21-27); ABG Oxygen Saturation 100 % (95-98); ABG PCO2 52 mmHg (35-45); ABG PH 7.47 pH Units (7.32-7.45); ABG PO2 156 mmHg (85-104); ABG TCO2 40 mEq/L (20-26)
[2019-07-19] MEDS: Gabapentin 300 MG CAPSULE PO SCH ×2 (10:10→19:59)
[2019-07-19] MEDS: Fluticasone Propionate Nasal 50 MCG/SPRAY BOTTLE NS SCH (10:15)
[2019-07-19] MEDS ORDERED: Albumin Human 5% 12.5 GM/250 ML IV.SOLN IVPB ONE ×2 (10:52→13:00)
[2019-07-19] MEDS ORDERED: Piperacillin/Tazobactam 3.375 GM in 0.9 % Sodium Chloride Mini Bag 100 ML IVPB ONE (11:04)
[2019-07-19] MEDS: 0.9 % Sodium Chloride 1,000 ML IVC ONE ×2 (12:06→17:30)
[2019-07-19] MEDS: Albumin Human 5% 12.5 GM/250 ML IV.SOLN IVPB ONE ×2 (12:07→14:28)
[2019-07-19] MEDS ORDERED: Norepinephrine 4 MG in 0.9 % Sodium Chloride 250 ML IVC SCH (14:30)
[2019-07-19] MEDS ORDERED: Perflutren Lipid Microsphere 1.3 ML in 0.9 % Sodium Chloride 8.7 ML IVP ONE (15:40)
[2019-07-19 16:14] LABS: INR 1.6; Prothrombin Time 18.6 Seconds (9.4-12.1)
[2019-07-19] MEDS: Insulin DETEMIR 100 UNIT/ML X5UNITS SQ SCH (19:59)
[2019-07-19] MEDS: Ipratropium/Albuterol Neb 3 ML IH PRN (20:25)
[2019-07-19] MEDS: Tiotropium 18 MCG inhalation IH SCH (21:23)
[2019-07-20] MEDS: 0.9 % Sodium Chloride 1,000 ML IVC SCH ×2 (03:39→11:14)
[2019-07-20 04:24] LABS: Basophils % 0.2 %; Eosinophils # 0.2 K/mcL (0.0-0.6); Eosinophils % 1.9 %; Hematocrit 26.4 % (37.5-50.1); Hemoglobin 8.2 g/dL (12.9-16.9); Immature Granulocytes % 0.4 % (0-4); Lymphocytes # 1.1 K/mcL (0.6-4.6); Lymphocytes % 13.7 %; Mean Corpuscular HGB Conc 31.1 g/dL (31.6-35.5); Mean Corpuscular Hemoglobin 29.9 pg (28.0-33.3); Mean Corpuscular Volume 96.4 fL (83.0-100.0); Mean Platelet Volume 10.3 fL (9.4-12.4); Monocytes # 0.7 K/mcL (0.0-1.3); Monocytes % 8.8 %; Neutrophils # 6.1 K/mcL (1.6-8.9); Platelet Count 138 K/mcL (140-400); Red Blood Count 2.74 M/mcL (4.19-5.50); Red Cell Distribution Width 14.8 % (11.5-14.5); White Blood Count 8.1 K/mcL (4.3-11.1)
[2019-07-20] MEDS: Ipratropium/Albuterol Neb 3 ML IH PRN (04:34)
[2019-07-20 04:38] LABS: Calcium 7.9 mg/dL (8.6-10.3); Magnesium 1.6 mg/dL (1.6-2.6); Phosphorous 4.2 mg/dL (2.7-4.5); Potassium 4.1 mEq/L (3.5-5.1)
[2019-07-20 04:48] LABS: Troponin I 0.1 ng/mL (< 0.04)
[2019-07-20] MEDS ORDERED: 0.9 % Sodium Chloride 1,000 ML ONE ×2 (05:07→05:46)
[2019-07-20] MEDS ORDERED: Heparin 1,000 UNITS/500 mL 500 ML ONE (05:49)
[2019-07-20] MEDS: Loratadine 10 MG TABLET PO SCH (08:36)
[2019-07-20] MEDS: Folic Acid 1 MG TABLET PO SCH (08:36)
[2019-07-20] MEDS: Gabapentin 300 MG CAPSULE PO SCH ×2 (08:37→20:33)
[2019-07-20] MEDS: Apixaban 5 MG TABLET PO SCH (08:37)
[2019-07-20] MEDS: Piperacillin/Tazobactam 3.375 GM in 0.9 % Sodium Chloride Mini Bag 100 ML IVPB SCH ×3 (08:38→23:48)
[2019-07-20] MEDS: Fluticasone Propionate Nasal 50 MCG/SPRAY BOTTLE NS SCH (08:38)
[2019-07-20] MEDS: Insulin LISPRO 300 UNITS/3 ML VIAL SQ SCH ×4 (08:48→20:35)
[2019-07-20] MEDS ORDERED: Aminoglycoside Consult 1 EACH MC ONE (09:15)
[2019-07-20] MEDS: *HR* OxyCODONE Immed Rel 5 MG TABLET PO PRN ×2 (15:53→22:06)
[2019-07-20] MEDS: Benzonatate 100 MG CAPSULE PO SCH (20:33)
[2019-07-20] MEDS: Insulin DETEMIR 100 UNIT/ML X5UNITS SQ SCH (20:34)
[2019-07-20] MEDS: Tiotropium 18 MCG inhalation IH SCH (20:44)
[2019-07-20] MEDS ORDERED: Albuterol 2.5 MG/3 ML NEBULIZER IH PRN (20:57)
[2019-07-21 03:47] LABS: Basophils % 0.2 %; Eosinophils # 0.2 K/mcL (0.0-0.6); Eosinophils % 2.3 %; Hematocrit 25.2 % (37.5-50.1); Hemoglobin 7.9 g/dL (12.9-16.9); Immature Granulocytes % 0.5 % (0-4); Lymphocytes # 0.8 K/mcL (0.6-4.6); Lymphocytes % 8.9 %; Mean Corpuscular HGB Conc 31.3 g/dL (31.6-35.5); Mean Corpuscular Hemoglobin 29.6 pg (28.0-33.3); Mean Corpuscular Volume 94.4 fL (83.0-100.0); Mean Platelet Volume 10.5 fL (9.4-12.4); Monocytes # 0.8 K/mcL (0.0-1.3); Monocytes % 9.7 %; Neutrophils # 6.8 K/mcL (1.6-8.9); Platelet Count 131 K/mcL (140-400); Red Blood Count 2.67 M/mcL (4.19-5.50); Red Cell Distribution Width 14.8 % (11.5-14.5); Segmented Neutrophils % 78.4 %; White Blood Count 8.6 K/mcL (4.3-11.1)
[2019-07-21 03:49] LABS: INR 1.5; Prothrombin Time 16.7 Seconds (9.4-12.1)
[2019-07-21 03:52] LABS: Activated Partial Thrombo Time 35.7 Seconds (26.0-36.0)
[2019-07-21 04:02] LABS: Albumin 3.4 g/dL (3.5-5.7); Albumin/Globulin Ratio 1.2 (1.1-2.2); Bilirubin,Total 0.6 mg/dL (0.3-1.0); Globulin 2.8 g/dL (2.4-3.5); Magnesium 1.5 mg/dL (1.6-2.6); Potassium 3.9 mEq/L (3.5-5.1); Total Protein 6.2 g/dL (6.4-8.9)
[2019-07-21] MEDS ORDERED: *HR* Heparin 5,000 UNIT/ML VIAL SQ SCH (06:00)
[2019-07-21] MEDS: Insulin LISPRO 300 UNITS/3 ML VIAL SQ SCH ×4 (07:27→20:40)
[2019-07-21] MEDS: Piperacillin/Tazobactam 3.375 GM in 0.9 % Sodium Chloride Mini Bag 100 ML IVPB SCH (07:28)
[2019-07-21] MEDS: Benzonatate 100 MG CAPSULE PO SCH ×3 (07:29→20:29)
[2019-07-21] MEDS: *HR* OxyCODONE Immed Rel 5 MG TABLET PO PRN ×2 (07:29→16:42)
[2019-07-21] MEDS: Gabapentin 300 MG CAPSULE PO SCH ×2 (07:29→20:30)
[2019-07-21] MEDS: Loratadine 10 MG TABLET PO SCH (07:29)
[2019-07-21] MEDS: Folic Acid 1 MG TABLET PO SCH (07:29)
[2019-07-21] MEDS: Fluticasone Propionate Nasal 50 MCG/SPRAY BOTTLE NS SCH (07:30)
[2019-07-21] MEDS ORDERED: Ondansetron ODT 4 MG TAB.RAPDIS SL PRN (13:17)
[2019-07-21] MEDS ORDERED: Naloxone 0.4 MG/ML INJ IVP PRN (13:17)
[2019-07-21] MEDS ORDERED: Mag Hydrox/Al Hydrox/Simeth 30 ML UDC PO PRN (13:17)
[2019-07-21] MEDS ORDERED: Ampicillin 1,000 MG in 0.9 % Sodium Chloride Mini Bag 100 ML IVPB SCH (16:00)
[2019-07-21] MEDS: *HR* Heparin 5,000 UNIT/ML VIAL SQ SCH (16:36)
[2019-07-21] MEDS: Furosemide 40 MG TABLET PO SCH (16:36)
[2019-07-21] MEDS: Ampicillin 1,000 MG in 0.9 % Sodium Chloride Mini Bag 100 ML IVPB SCH ×3 (16:43→21:51)
[2019-07-21] MEDS: Tiotropium 18 MCG inhalation IH SCH (20:00)
[2019-07-21] MEDS: Acetaminophen 325 MG TABLET PO PRN (20:29)
[2019-07-21] MEDS: Insulin DETEMIR 100 UNIT/ML X5UNITS SQ SCH (20:41)
[2019-07-21] MEDS: Albuterol 2.5 MG/3 ML NEBULIZER IH PRN (21:16)
[2019-07-22] MEDS: Ampicillin 1,000 MG in 0.9 % Sodium Chloride Mini Bag 100 ML IVPB SCH ×5 (00:14→15:30)
[2019-07-22] MEDS: *HR* OxyCODONE Immed Rel 5 MG TABLET PO PRN ×2 (03:39→16:37)
[2019-07-22 04:13] LABS: Basophils % 0.3 %; Eosinophils # 0.2 K/mcL (0.0-0.6); Eosinophils % 2.6 %; Hematocrit 24.9 % (37.5-50.1); Hemoglobin 7.8 g/dL (12.9-16.9); Immature Granulocytes % 0.3 % (0-4); Lymphocytes # 0.9 K/mcL (0.6-4.6); Lymphocytes % 11.8 %; Mean Corpuscular HGB Conc 31.3 g/dL (31.6-35.5); Mean Corpuscular Hemoglobin 30.1 pg (28.0-33.3); Mean Corpuscular Volume 96.1 fL (83.0-100.0); Mean Platelet Volume 11.2 fL (9.4-12.4); Monocytes # 0.8 K/mcL (0.0-1.3); Monocytes % 10.7 %; Neutrophils # 5.3 K/mcL (1.6-8.9); Platelet Count 126 K/mcL (140-400); Red Blood Count 2.59 M/mcL (4.19-5.50); Red Cell Distribution Width 14.8 % (11.5-14.5); Segmented Neutrophils % 74.3 %; White Blood Count 7.2 K/mcL (4.3-11.1)
[2019-07-22 04:34] LABS: Alanine Aminotransferase 13 Units/L (7-52); Albumin 3.5 g/dL (3.5-5.7); Albumin/Globulin Ratio 1.1 (1.1-2.2); Alkaline Phosphatase 84 Units/L (34-104); Aspartate Amino Transferase 18 Units/L (13-39); BUN/Creatinine Ratio 30 (6-26); Bilirubin,Total 0.6 mg/dL (0.3-1.0); Blood Urea Nitrogen 37 mg/dL (6-20); Calcium 8.5 mg/dL (8.6-10.3); Carbon Dioxide 28 mEq/L (23-29); Chloride 97 mEq/L (98-107); Globulin 3.1 g/dL (2.4-3.5); Glucose 108 mg/dL (70-105); Magnesium 1.5 mg/dL (1.6-2.6); Osmolality,Calculated 291 (280-300); Phosphorous 2.9 mg/dL (2.7-4.5); Potassium 4.1 mEq/L (3.5-5.1); Sodium 136 mEq/L (136-145); Total Protein 6.6 g/dL (6.4-8.9); eGFR For African Americans > 60 (> 60); eGFR For Non-African Americans > 60 (> 60)
[2019-07-22] MEDS: *HR* Heparin 5,000 UNIT/ML VIAL SQ SCH (05:09)
[2019-07-22] MEDS: Insulin LISPRO 300 UNITS/3 ML VIAL SQ SCH ×4 (09:13→22:22)
[2019-07-22] MEDS: Gabapentin 300 MG CAPSULE PO SCH ×2 (09:25→22:18)
[2019-07-22] MEDS: Benzonatate 100 MG CAPSULE PO SCH ×3 (09:25→22:18)
[2019-07-22] MEDS: Furosemide 40 MG TABLET PO SCH ×2 (09:26→16:37)
[2019-07-22] MEDS: Metoprolol XL (24 HR) Succ 25 MG TAB.ER.24H PO SCH (09:26)
[2019-07-22] MEDS: Folic Acid 1 MG TABLET PO SCH (09:26)
[2019-07-22] MEDS: Loratadine 10 MG TABLET PO SCH (09:26)
[2019-07-22] MEDS: Fluticasone Propionate Nasal 50 MCG/SPRAY BOTTLE NS SCH (09:33)
[2019-07-22 10:45] LABS: Hematocrit 25.3 % (37.5-50.1)
[2019-07-22 12:07] LABS: Uric Acid 9.8 mg/dL (2.3-7.6)
[2019-07-22 14:29] LABS: Source,Synovial Fluid Left knee
[2019-07-22 15:08] LABS: Appearance,Synovial Fluid Clear (Clear-Hazy); Color,Synovial Fluid Straw (Straw)
[2019-07-22 16:14] LABS: Hematocrit 26.4 % (37.5-50.1); Hemoglobin 8.2 g/dL (12.9-16.9)
[2019-07-22] MEDS: Tiotropium 18 MCG inhalation IH SCH (20:28)
[2019-07-22] MEDS: Apixaban 5 MG TABLET PO SCH (22:19)
[2019-07-22] MEDS: Amoxicillin 500 MG CAPSULE PO SCH (22:19)
[2019-07-22] MEDS: Insulin DETEMIR 100 UNIT/ML X5UNITS SQ SCH (22:22)
[2019-07-22 22:46] LABS: Hematocrit 24.5 % (37.5-50.1); Hemoglobin 7.6 g/dL (12.9-16.9)
[2019-07-23] MEDS: *HR* OxyCODONE Immed Rel 5 MG TABLET PO PRN ×3 (01:26→23:36)
[2019-07-23] MEDS: Acetaminophen 325 MG TABLET PO PRN ×2 (01:41→23:41)
[2019-07-23] MEDS ORDERED: Melatonin 3 MG TABLET PO ONE (02:32)
[2019-07-23 04:10] LABS: Hematocrit 24.1 % (37.5-50.1); Hemoglobin 7.6 g/dL (12.9-16.9); Mean Corpuscular HGB Conc 31.5 g/dL (31.6-35.5); Mean Corpuscular Hemoglobin 29.9 pg (28.0-33.3); Mean Corpuscular Volume 94.9 fL (83.0-100.0); Mean Platelet Volume 11.8 fL (9.4-12.4); Platelet Count 139 K/mcL (140-400); Red Blood Count 2.54 M/mcL (4.19-5.50); Red Cell Distribution Width 14.7 % (11.5-14.5); White Blood Count 7.7 K/mcL (4.3-11.1)
[2019-07-23 04:22] LABS: BUN/Creatinine Ratio 29 (6-26); Blood Urea Nitrogen 30 mg/dL (6-20); Calcium 8.5 mg/dL (8.6-10.3); Carbon Dioxide 29 mEq/L (23-29); Chloride 97 mEq/L (98-107); Glucose 158 mg/dL (70-105); Osmolality,Calculated 281 (280-300); Potassium 4.1 mEq/L (3.5-5.1); Sodium 131 mEq/L (136-145); eGFR For African Americans > 60 (> 60); eGFR For Non-African Americans > 60 (> 60)
[2019-07-23] MEDS: Insulin LISPRO 300 UNITS/3 ML VIAL SQ SCH ×4 (07:51→23:11)
[2019-07-23] MEDS: Amoxicillin 500 MG CAPSULE PO SCH ×3 (07:51→21:07)
[2019-07-23] MEDS: Folic Acid 1 MG TABLET PO SCH (07:52)
[2019-07-23] MEDS: Gabapentin 300 MG CAPSULE PO SCH ×2 (07:52→21:07)
[2019-07-23] MEDS: Benzonatate 100 MG CAPSULE PO SCH ×3 (07:52→21:07)
[2019-07-23] MEDS: Apixaban 5 MG TABLET PO SCH ×2 (07:52→21:08)
[2019-07-23] MEDS: Metoprolol XL (24 HR) Succ 25 MG TAB.ER.24H PO SCH (07:52)
[2019-07-23] MEDS: Furosemide 40 MG TABLET PO SCH (07:52)
[2019-07-23] MEDS: Loratadine 10 MG TABLET PO SCH (07:52)
[2019-07-23] MEDS: Fluticasone Propionate Nasal 50 MCG/SPRAY BOTTLE NS SCH (08:03)
[2019-07-23] MEDS ORDERED: Furosemide 40 MG/4 ML VIAL IVP ONE (14:12)
[2019-07-23] MEDS: polyethylene glycoL 3350 17 GM POWD.PACK PO PRN (16:16)
[2019-07-23] MEDS: predniSONE 20 MG TABLET PO SCH (17:17)
[2019-07-23] MEDS: Albuterol 2.5 MG/3 ML NEBULIZER IH PRN (20:59)
[2019-07-23] MEDS: Tiotropium 18 MCG inhalation IH SCH (20:59)
[2019-07-23] MEDS ORDERED: Insulin DETEMIR 100 UNIT/ML X5UNITS SQ SCH (21:00)
[2019-07-24 04:28] LABS: Mean Corpuscular HGB Conc 30.8 g/dL (31.6-35.5); Mean Corpuscular Hemoglobin 29.2 pg (28.0-33.3); Mean Corpuscular Volume 94.9 fL (83.0-100.0); Mean Platelet Volume 11.4 fL (9.4-12.4); Platelet Count 145 K/mcL (140-400); Red Blood Count 2.74 M/mcL (4.19-5.50); Red Cell Distribution Width 14.8 % (11.5-14.5); White Blood Count 7.2 K/mcL (4.3-11.1)
[2019-07-24 04:47] LABS: BUN/Creatinine Ratio 27 (6-26); Blood Urea Nitrogen 30 mg/dL (6-20); Calcium 9.1 mg/dL (8.6-10.3); Carbon Dioxide 27 mEq/L (23-29); Chloride 97 mEq/L (98-107); Glucose 219 mg/dL (70-105); Magnesium 1.6 mg/dL (1.6-2.6); Osmolality,Calculated 287 (280-300); Sodium 132 mEq/L (136-145); eGFR For African Americans > 60 (> 60); eGFR For Non-African Americans > 60 (> 60)
[2019-07-24] MEDS: Insulin LISPRO 300 UNITS/3 ML VIAL SQ SCH ×4 (08:27→21:51)
[2019-07-24] MEDS: predniSONE 20 MG TABLET PO SCH (08:28)
[2019-07-24] MEDS: *HR* OxyCODONE Immed Rel 5 MG TABLET PO PRN ×2 (08:28→22:06)
[2019-07-24] MEDS: Amoxicillin 500 MG CAPSULE PO SCH ×3 (08:28→21:50)
[2019-07-24] MEDS: Apixaban 5 MG TABLET PO SCH ×2 (08:29→21:50)
[2019-07-24] MEDS: Metoprolol XL (24 HR) Succ 25 MG TAB.ER.24H PO SCH (08:29)
[2019-07-24] MEDS: Loratadine 10 MG TABLET PO SCH (08:29)
[2019-07-24] MEDS: Folic Acid 1 MG TABLET PO SCH (08:29)
[2019-07-24] MEDS: Benzonatate 100 MG CAPSULE PO SCH (08:29)
[2019-07-24] MEDS: Gabapentin 300 MG CAPSULE PO SCH ×2 (08:58→21:50)
[2019-07-24] MEDS: Fluticasone Propionate Nasal 50 MCG/SPRAY BOTTLE NS SCH (08:58)
[2019-07-24] MEDS ORDERED: Furosemide 40 MG/4 ML VIAL IVP SCH (09:00)
[2019-07-24] MEDS: Furosemide 40 MG/4 ML VIAL IVP SCH ×2 (16:16→21:50)
[2019-07-24] MEDS ORDERED: metOLazone 5 MG TABLET PO ONE (20:30)
[2019-07-24] MEDS: Tiotropium 18 MCG inhalation IH SCH (20:42)
[2019-07-24] MEDS: Albuterol 2.5 MG/3 ML NEBULIZER IH PRN (20:48)
[2019-07-24] MEDS: Insulin DETEMIR 100 UNIT/ML X5UNITS SQ SCH (21:52)
[2019-07-25] MEDS ORDERED: Melatonin 3 MG TABLET PO STA (01:11)
[2019-07-25 05:43] LABS: BUN/Creatinine Ratio 28 (6-26); Blood Urea Nitrogen 33 mg/dL (6-20); Calcium 9.3 mg/dL (8.6-10.3); Carbon Dioxide 30 mEq/L (23-29); Chloride 98 mEq/L (98-107); Glucose 193 mg/dL (70-105); Magnesium 1.7 mg/dL (1.6-2.6); Osmolality,Calculated 293 (280-300); Potassium 4.4 mEq/L (3.5-5.1); Sodium 135 mEq/L (136-145); eGFR For African Americans > 60 (> 60); eGFR For Non-African Americans > 60 (> 60)
[2019-07-25] MEDS: Insulin LISPRO 300 UNITS/3 ML VIAL SQ SCH ×4 (08:35→20:41)
[2019-07-25] MEDS: Furosemide 40 MG/4 ML VIAL IVP SCH (08:35)
[2019-07-25] MEDS: Apixaban 5 MG TABLET PO SCH ×2 (08:36→20:39)
[2019-07-25] MEDS: Amoxicillin 500 MG CAPSULE PO SCH ×3 (08:36→20:40)
[2019-07-25] MEDS: Loratadine 10 MG TABLET PO SCH (08:36)
[2019-07-25] MEDS: predniSONE 20 MG TABLET PO SCH (08:36)
[2019-07-25] MEDS: Gabapentin 300 MG CAPSULE PO SCH ×2 (08:36→20:39)
[2019-07-25] MEDS: Metoprolol XL (24 HR) Succ 25 MG TAB.ER.24H PO SCH (08:36)
[2019-07-25] MEDS: Fluticasone Propionate Nasal 50 MCG/SPRAY BOTTLE NS SCH (08:36)
[2019-07-25] MEDS: *HR* OxyCODONE Immed Rel 5 MG TABLET PO PRN ×3 (08:44→23:57)
[2019-07-25] MEDS ORDERED: metOLazone 5 MG TABLET PO SCH (09:00)
[2019-07-25] MEDS ORDERED: Furosemide 40 MG/4 ML VIAL IVP SCH (09:00)
[2019-07-25] MEDS: Furosemide 80 MG in 0.9 % Sodium Chloride 50 ML IV SCH ×2 (15:16→20:40)
[2019-07-25] MEDS: Albuterol 2.5 MG/3 ML NEBULIZER IH PRN (19:48)
[2019-07-25] MEDS: Tiotropium 18 MCG inhalation IH SCH (19:48)
[2019-07-25] MEDS: Insulin DETEMIR 100 UNIT/ML X5UNITS SQ SCH (20:39)
[2019-07-25] MEDS: metOLazone 5 MG TABLET PO SCH (20:39)
[2019-07-26] MEDS: Melatonin 3 MG TABLET PO SCH ×2 (00:08→22:09)
[2019-07-26 06:35] LABS: BUN/Creatinine Ratio 28 (6-26); Blood Urea Nitrogen 35 mg/dL (6-20); Calcium 9.6 mg/dL (8.6-10.3); Carbon Dioxide 33 mEq/L (23-29); Chloride 97 mEq/L (98-107); Glucose 127 mg/dL (70-105); Magnesium 1.5 mg/dL (1.6-2.6); Osmolality,Calculated 292 (280-300); Potassium 4.1 mEq/L (3.5-5.1); Sodium 136 mEq/L (136-145); eGFR For African Americans > 60 (> 60); eGFR For Non-African Americans > 60 (> 60)
[2019-07-26] MEDS: Insulin LISPRO 300 UNITS/3 ML VIAL SQ SCH ×4 (08:32→22:10)
[2019-07-26] MEDS: Apixaban 5 MG TABLET PO SCH ×2 (08:58→22:09)
[2019-07-26] MEDS: Gabapentin 300 MG CAPSULE PO SCH ×2 (08:58→22:10)
[2019-07-26] MEDS: Metoprolol XL (24 HR) Succ 25 MG TAB.ER.24H PO SCH (08:58)
[2019-07-26] MEDS: Loratadine 10 MG TABLET PO SCH (08:58)
[2019-07-26] MEDS: predniSONE 20 MG TABLET PO SCH (08:58)
[2019-07-26] MEDS: metOLazone 5 MG TABLET PO SCH ×2 (08:58→22:09)
[2019-07-26] MEDS: Amoxicillin 500 MG CAPSULE PO SCH ×3 (08:58→22:09)
[2019-07-26] MEDS: *HR* OxyCODONE Immed Rel 5 MG TABLET PO PRN ×2 (09:09→22:09)
[2019-07-26] MEDS: Fluticasone Propionate Nasal 50 MCG/SPRAY BOTTLE NS SCH (09:12)
[2019-07-26] MEDS: Furosemide 80 MG in 0.9 % Sodium Chloride 50 ML IV SCH ×2 (09:27→23:23)
[2019-07-26] MEDS ORDERED: Colchicine 0.6 MG TABLET PO ONE ×2 (12:17→15:00)
[2019-07-26] MEDS ORDERED: Methyl Salicylate/Menthol 28 GM TUBE TP SCH (12:30)
[2019-07-26] MEDS: polyethylene glycoL 3350 17 GM POWD.PACK PO PRN (17:21)
[2019-07-26] MEDS: Methyl Salicylate/Menthol 57 APPL/57 GM TUBE TP SCH (22:14)
[2019-07-26] MEDS: Insulin DETEMIR 100 UNIT/ML X5UNITS SQ SCH (22:14)
[2019-07-27] MEDS: *HR* OxyCODONE Immed Rel 5 MG TABLET PO PRN ×4 (04:13→22:50)
[2019-07-27 05:07] LABS: Hematocrit 25.7 % (37.5-50.1); Hemoglobin 7.9 g/dL (12.9-16.9); Mean Corpuscular HGB Conc 30.7 g/dL (31.6-35.5); Mean Corpuscular Hemoglobin 29.2 pg (28.0-33.3); Mean Corpuscular Volume 94.8 fL (83.0-100.0); Mean Platelet Volume 11.2 fL (9.4-12.4); Platelet Count 207 K/mcL (140-400); Red Blood Count 2.71 M/mcL (4.19-5.50); Red Cell Distribution Width 14.8 % (11.5-14.5); White Blood Count 8.5 K/mcL (4.3-11.1)
[2019-07-27 05:28] LABS: BUN/Creatinine Ratio 32 (6-26); Blood Urea Nitrogen 35 mg/dL (6-20); Calcium 9.6 mg/dL (8.6-10.3); Carbon Dioxide 31 mEq/L (23-29); Chloride 93 mEq/L (98-107); Glucose 103 mg/dL (70-105); Magnesium 1.7 mg/dL (1.6-2.6); Osmolality,Calculated 284 (280-300); Potassium 4.1 mEq/L (3.5-5.1); Sodium 133 mEq/L (136-145); eGFR For African Americans > 60 (> 60); eGFR For Non-African Americans > 60 (> 60)
[2019-07-27] MEDS: Albuterol 2.5 MG/3 ML NEBULIZER IH PRN ×2 (05:40→22:19)
[2019-07-27] MEDS: Insulin LISPRO 300 UNITS/3 ML VIAL SQ SCH ×4 (07:35→22:00)
[2019-07-27] MEDS: Metoprolol XL (24 HR) Succ 25 MG TAB.ER.24H PO SCH (09:15)
[2019-07-27] MEDS: Loratadine 10 MG TABLET PO SCH (09:15)
[2019-07-27] MEDS: Gabapentin 300 MG CAPSULE PO SCH ×2 (09:15→21:59)
[2019-07-27] MEDS: metOLazone 5 MG TABLET PO SCH (09:15)
[2019-07-27] MEDS: predniSONE 20 MG TABLET PO SCH (09:16)
[2019-07-27] MEDS: Amoxicillin 500 MG CAPSULE PO SCH ×3 (09:16→21:58)
[2019-07-27] MEDS: Apixaban 5 MG TABLET PO SCH ×2 (09:16→21:58)
[2019-07-27] MEDS: Colchicine 0.6 MG TABLET PO SCH ×2 (09:16→22:10)
[2019-07-27] MEDS: Furosemide 80 MG in 0.9 % Sodium Chloride 50 ML IV SCH ×2 (09:16→21:59)
[2019-07-27] MEDS: Fluticasone Propionate Nasal 50 MCG/SPRAY BOTTLE NS SCH (09:17)
[2019-07-27] MEDS: Methyl Salicylate/Menthol 57 APPL/57 GM TUBE TP SCH ×2 (09:18→22:10)
[2019-07-27] MEDS: polyethylene glycoL 3350 17 GM POWD.PACK PO PRN (17:28)
[2019-07-27] MEDS ORDERED: metOLazone 5 MG TABLET PO SCH (21:00)
[2019-07-27] MEDS ORDERED: Insulin DETEMIR 100 UNIT/ML X5UNITS SQ SCH (21:00)
[2019-07-27] MEDS: Melatonin 3 MG TABLET PO SCH (21:59)
[2019-07-27] MEDS: Insulin DETEMIR 100 UNIT/ML X5UNITS SQ SCH (22:00)
[2019-07-28] MEDS: Albuterol 2.5 MG/3 ML NEBULIZER IH PRN (00:53)
[2019-07-28 04:35] LABS: Hematocrit 24.2 % (37.5-50.1); Hemoglobin 7.7 g/dL (12.9-16.9); Mean Corpuscular HGB Conc 31.8 g/dL (31.6-35.5); Mean Corpuscular Hemoglobin 29.8 pg (28.0-33.3); Mean Corpuscular Volume 93.8 fL (83.0-100.0); Platelet Count 206 K/mcL (140-400); Red Blood Count 2.58 M/mcL (4.19-5.50); Red Cell Distribution Width 14.7 % (11.5-14.5)
[2019-07-28 04:47] LABS: BUN/Creatinine Ratio 32 (6-26); Blood Urea Nitrogen 35 mg/dL (6-20); Calcium 9.1 mg/dL (8.6-10.3); Carbon Dioxide 32 mEq/L (23-29); Chloride 93 mEq/L (98-107); Glucose 172 mg/dL (70-105); Magnesium 1.9 mg/dL (1.6-2.6); Osmolality,Calculated 288 (280-300); Sodium 133 mEq/L (136-145); eGFR For African Americans > 60 (> 60); eGFR For Non-African Americans > 60 (> 60)
[2019-07-28] MEDS: Furosemide 80 MG in 0.9 % Sodium Chloride 50 ML IV SCH ×2 (07:44→21:00)
[2019-07-28] MEDS: Loratadine 10 MG TABLET PO SCH (07:45)
[2019-07-28] MEDS: Metoprolol XL (24 HR) Succ 25 MG TAB.ER.24H PO SCH (07:45)
[2019-07-28] MEDS: Amoxicillin 500 MG CAPSULE PO SCH (07:45)
[2019-07-28] MEDS: Colchicine 0.6 MG TABLET PO SCH ×2 (07:45→20:59)
[2019-07-28] MEDS: Gabapentin 300 MG CAPSULE PO SCH ×2 (07:45→20:59)
[2019-07-28] MEDS: Apixaban 5 MG TABLET PO SCH ×2 (07:46→20:59)
[2019-07-28] MEDS: Insulin LISPRO 300 UNITS/3 ML VIAL SQ SCH ×4 (07:46→21:01)
[2019-07-28] MEDS: Fluticasone Propionate Nasal 50 MCG/SPRAY BOTTLE NS SCH (08:00)
[2019-07-28] MEDS: *HR* OxyCODONE Immed Rel 5 MG TABLET PO PRN ×2 (08:02→14:41)
[2019-07-28] MEDS: Methyl Salicylate/Menthol 57 APPL/57 GM TUBE TP SCH ×2 (08:04→21:43)
[2019-07-28] MEDS: *HR* HYDROcodone/Acet 5/325 mg TABLET PO PRN (20:59)
[2019-07-28] MEDS: Melatonin 3 MG TABLET PO SCH (21:00)
[2019-07-28] MEDS: Insulin DETEMIR 100 UNIT/ML X5UNITS SQ SCH (21:42)
[2019-07-29] MEDS: *HR* HYDROcodone/Acet 5/325 mg TABLET PO PRN ×2 (03:35→09:42)
[2019-07-29 04:18] LABS: Hematocrit 25.4 % (37.5-50.1); Hemoglobin 8.1 g/dL (12.9-16.9)
[2019-07-29 04:45] LABS: BUN/Creatinine Ratio 31 (6-26); Blood Urea Nitrogen 34 mg/dL (6-20); Calcium 9.3 mg/dL (8.6-10.3); Carbon Dioxide 34 mEq/L (23-29); Chloride 94 mEq/L (98-107); Glucose 114 mg/dL (70-105); Magnesium 1.7 mg/dL (1.6-2.6); Osmolality,Calculated 286 (280-300); Phosphorous 3.8 mg/dL (2.7-4.5); Sodium 134 mEq/L (136-145); eGFR For African Americans > 60 (> 60); eGFR For Non-African Americans > 60 (> 60)
[2019-07-29] MEDS: Colchicine 0.6 MG TABLET PO SCH (08:20)
[2019-07-29] MEDS: Apixaban 5 MG TABLET PO SCH (08:22)
[2019-07-29] MEDS: Metoprolol XL (24 HR) Succ 25 MG TAB.ER.24H PO SCH (08:22)
[2019-07-29] MEDS: Gabapentin 300 MG CAPSULE PO SCH (08:22)
[2019-07-29] MEDS: Furosemide 80 MG in 0.9 % Sodium Chloride 50 ML IV SCH (08:23)
[2019-07-29] MEDS: Loratadine 10 MG TABLET PO SCH (08:23)
[2019-07-29] MEDS: Insulin LISPRO 300 UNITS/3 ML VIAL SQ SCH ×2 (08:25→11:46)
[2019-07-29] MEDS: Fluticasone Propionate Nasal 50 MCG/SPRAY BOTTLE NS SCH (08:51)
[2019-07-29] MEDS: Methyl Salicylate/Menthol 57 APPL/57 GM TUBE TP SCH (08:51)
[2019-07-29 11:23] VITALS: BP 126/76
== END 2019-07-29 13:26 | DRG 280 ==
LOC: 2ANU 18:35 → EMEROOARM 18:35 → 2ANU 22:22 → SUATTDRO 07-19 14:57 → ICNU 07-20 06:57 → 2NENU 07-21 17:35
PROVIDERS: ADMIT Family Medicine; ATTEND Internal Medicine

== ENCOUNTER 2019-08-01 13:10 | Inpatient (IN) ==
[2019-08-01 14:01] LABS: Basophils % 0.2 %; Eosinophils # 0.1 K/mcL (0.0-0.6); Eosinophils % 2.1 %; Hematocrit 28.2 % (37.5-50.1); Hemoglobin 8.8 g/dL (12.9-16.9); Immature Granulocytes % 0.2 % (0-4); Lymphocytes # 0.6 K/mcL (0.6-4.6); Lymphocytes % 9.6 %; Mean Corpuscular HGB Conc 31.2 g/dL (31.6-35.5); Mean Corpuscular Volume 93.1 fL (83.0-100.0); Monocytes # 0.4 K/mcL (0.0-1.3); Monocytes % 7.2 %; Neutrophils # 4.6 K/mcL (1.6-8.9); Platelet Count 231 K/mcL (140-400); Red Blood Count 3.03 M/mcL (4.19-5.50); Segmented Neutrophils % 80.7 %; White Blood Count 5.7 K/mcL (4.3-11.1)
[2019-08-01 14:06] LABS: INR 1.2; Prothrombin Time 13.5 Seconds (9.4-12.1)
[2019-08-01 14:09] LABS: Activated Partial Thrombo Time 33.4 Seconds (26.0-36.0)
[2019-08-01 14:22] LABS: Alanine Aminotransferase 12 Units/L (7-52); Albumin 3.8 g/dL (3.5-5.7); Albumin/Globulin Ratio 1.3 (1.1-2.2); Alkaline Phosphatase 87 Units/L (34-104); Aspartate Amino Transferase 16 Units/L (13-39); BUN/Creatinine Ratio 20 (6-26); Bilirubin,Total 0.6 mg/dL (0.3-1.0); Blood Urea Nitrogen 22 mg/dL (6-20); Calcium 9.1 mg/dL (8.6-10.3); Carbon Dioxide 27 mEq/L (23-29); Chloride 96 mEq/L (98-107); Glucose 52 mg/dL (70-105); Osmolality,Calculated 275 (280-300); Sodium 132 mEq/L (136-145); Total Protein 6.8 g/dL (6.4-8.9); eGFR For African Americans > 60 (> 60); eGFR For Non-African Americans > 60 (> 60)
[2019-08-01 14:27] LABS: Troponin I 0.11 ng/mL (< 0.04)
[2019-08-01] MEDS ORDERED: Bumetanide 1 MG/4 ML VIAL IVP SCH (14:30)
[2019-08-01] MEDS ORDERED: Ondansetron 4 MG/2 ML VIAL IVP PRN (15:15)
[2019-08-01] MEDS ORDERED: Naloxone 0.4 MG/ML INJ IVP PRN (15:15)
[2019-08-01] MEDS ORDERED: D5% in Water 1,000 ML IVC PRN (15:18)
[2019-08-01] MEDS ORDERED: Dextrose Gel 15 GM/37.5 ML TUBE PO PRN (15:18)
[2019-08-01] MEDS: *HR* HYDROcodone/Acet 5/325 mg TABLET PO PRN ×2 (16:35→22:34)
[2019-08-01] MEDS: Dextrose Gel 15 GM/37.5 ML TUBE PO PRN ×2 (16:54→20:41)
[2019-08-01] MEDS: Insulin LISPRO 300 UNITS/3 ML VIAL SQ SCH (16:55)
[2019-08-01] MEDS: Furosemide 40 MG/4 ML VIAL IVP SCH (20:40)
[2019-08-01] MEDS: Colchicine 0.6 MG TABLET PO SCH (20:41)
[2019-08-01] MEDS: Apixaban 5 MG TABLET PO SCH (20:41)
[2019-08-01] MEDS: Gabapentin 300 MG CAPSULE PO SCH (20:42)
[2019-08-01] MEDS: Melatonin 3 MG TABLET PO SCH (20:42)
[2019-08-01] MEDS: *HR* Dextrose 50 % in Water (Syg) 50 ML SYRINGE IVP PRN (22:49)
[2019-08-01] MEDS ORDERED: Ipratropium/Albuterol Neb 3 ML IH PRN (23:13)
[2019-08-01] MEDS: Tiotropium 18 MCG inhalation IH SCH (23:58)
[2019-08-02 00:26] LABS: Basophils % 0.3 %; Eosinophils # 0.2 K/mcL (0.0-0.6); Hemoglobin 8.2 g/dL (12.9-16.9); Immature Granulocytes % 0.1 % (0-4); Lymphocytes % 14.2 %; Mean Corpuscular HGB Conc 31.5 g/dL (31.6-35.5); Mean Corpuscular Hemoglobin 29.2 pg (28.0-33.3); Mean Corpuscular Volume 92.5 fL (83.0-100.0); Mean Platelet Volume 10.6 fL (9.4-12.4); Monocytes # 0.6 K/mcL (0.0-1.3); Monocytes % 9.1 %; Neutrophils # 4.9 K/mcL (1.6-8.9); Platelet Count 221 K/mcL (140-400); Red Blood Count 2.81 M/mcL (4.19-5.50); Segmented Neutrophils % 73.3 %; White Blood Count 6.7 K/mcL (4.3-11.1)
[2019-08-02] MEDS: *HR* Dextrose 50 % in Water (Syg) 50 ML SYRINGE IVP PRN ×2 (00:37→04:07)
[2019-08-02 00:46] LABS: BUN/Creatinine Ratio 19 (6-26); Blood Urea Nitrogen 24 mg/dL (6-20); Calcium 8.7 mg/dL (8.6-10.3); Carbon Dioxide 28 mEq/L (23-29); Chloride 97 mEq/L (98-107); Glucose 56 mg/dL (70-105); Osmolality,Calculated 276 (280-300); Potassium 3.3 mEq/L (3.5-5.1); Sodium 132 mEq/L (136-145); eGFR For African Americans > 60 (> 60); eGFR For Non-African Americans 60 (> 60)
[2019-08-02 01:13] LABS: Magnesium 1.4 mg/dL (1.6-2.6)
[2019-08-02] MEDS: Insulin LISPRO 300 UNITS/3 ML VIAL SQ SCH ×3 (09:29→15:45)
[2019-08-02] MEDS: *HR* HYDROcodone/Acet 5/325 mg TABLET PO PRN ×3 (09:37→23:32)
[2019-08-02] MEDS: Metoprolol XL (24 HR) Succ 25 MG TAB.ER.24H PO SCH (09:38)
[2019-08-02] MEDS: Folic Acid 1 MG TABLET PO SCH (09:38)
[2019-08-02] MEDS: Colchicine 0.6 MG TABLET PO SCH ×2 (09:38→21:09)
[2019-08-02] MEDS: Thiamine (B-1) 100 MG TABLET PO SCH (09:38)
[2019-08-02] MEDS: Finasteride 5 MG TABLET PO SCH (09:39)
[2019-08-02] MEDS: Apixaban 5 MG TABLET PO SCH ×2 (09:39→21:09)
[2019-08-02] MEDS: Gabapentin 300 MG CAPSULE PO SCH ×2 (09:39→21:09)
[2019-08-02] MEDS: polyethylene glycoL 3350 17 GM POWD.PACK PO SCH (09:40)
[2019-08-02] MEDS: Furosemide 40 MG/4 ML VIAL IVP SCH ×2 (09:40→20:58)
[2019-08-02] MEDS: Fluticasone Propionate Nasal 50 MCG/SPRAY BOTTLE NS SCH (09:41)
[2019-08-02] MEDS: D10% in Water 500 ML IVC SCH (10:00)
[2019-08-02] MEDS: Tiotropium 18 MCG inhalation IH SCH (20:10)
[2019-08-02] MEDS: Melatonin 3 MG TABLET PO SCH (21:09)
[2019-08-03] MEDS: D10% in Water 500 ML IVC SCH (01:14)
[2019-08-03] MEDS ORDERED: Morphine Sulfate 2 MG/ML SYRINGE IVP ONE (01:51)
[2019-08-03 02:28] LABS: Calcium 8.5 mg/dL (8.6-10.3); Magnesium 1.7 mg/dL (1.6-2.6); Phosphorous 4.9 mg/dL (2.7-4.5); Potassium 4.4 mEq/L (3.5-5.1)
[2019-08-03] MEDS: Insulin LISPRO 300 UNITS/3 ML VIAL SQ SCH ×3 (08:08→17:18)
[2019-08-03] MEDS: *HR* HYDROcodone/Acet 5/325 mg TABLET PO PRN ×2 (08:08→17:18)
[2019-08-03] MEDS: Gabapentin 300 MG CAPSULE PO SCH ×2 (08:08→20:20)
[2019-08-03] MEDS: Thiamine (B-1) 100 MG TABLET PO SCH (08:09)
[2019-08-03] MEDS: Folic Acid 1 MG TABLET PO SCH (08:09)
[2019-08-03] MEDS: Fluticasone Propionate Nasal 50 MCG/SPRAY BOTTLE NS SCH (08:09)
[2019-08-03] MEDS: Apixaban 5 MG TABLET PO SCH ×2 (08:09→20:20)
[2019-08-03] MEDS: Colchicine 0.6 MG TABLET PO SCH (08:09)
[2019-08-03] MEDS: polyethylene glycoL 3350 17 GM POWD.PACK PO SCH (08:09)
[2019-08-03] MEDS: Metoprolol XL (24 HR) Succ 25 MG TAB.ER.24H PO SCH (08:09)
[2019-08-03] MEDS: Finasteride 5 MG TABLET PO SCH (08:09)
[2019-08-03 10:20] LABS: ABG Base Excess 2 mEq/L (-2 to 3); ABG HCO3 26 mEq/L (21-27); ABG Oxygen Saturation 99 % (95-98); ABG PCO2 41 mmHg (35-45); ABG PH 7.42 pH Units (7.32-7.45); ABG PO2 119 mmHg (85-104); ABG TCO2 28 mEq/L (20-26)
[2019-08-03] MEDS ORDERED: 0.9 % Sodium Chloride 250 ML IV ONE (10:56)
[2019-08-03] MEDS ORDERED: Albumin 25% 25gram/100mL 25 GM/100 ML IV.SOLN IVPB ONE (13:00)
[2019-08-03] MEDS: Tiotropium 18 MCG inhalation IH SCH (19:37)
[2019-08-03] MEDS: Melatonin 3 MG TABLET PO SCH (20:20)
[2019-08-04 04:59] LABS: Basophils % 0.4 %; Eosinophils # 0.2 K/mcL (0.0-0.6); Eosinophils % 2.8 %; Hematocrit 24.2 % (37.5-50.1); Hemoglobin 7.6 g/dL (12.9-16.9); Immature Granulocytes % 0.6 % (0-4); Lymphocytes # 1.1 K/mcL (0.6-4.6); Lymphocytes % 16.1 %; Mean Corpuscular HGB Conc 31.4 g/dL (31.6-35.5); Mean Corpuscular Hemoglobin 29.3 pg (28.0-33.3); Mean Corpuscular Volume 93.4 fL (83.0-100.0); Mean Platelet Volume 11.3 fL (9.4-12.4); Monocytes # 0.9 K/mcL (0.0-1.3); Monocytes % 13.3 %; Neutrophils # 4.5 K/mcL (1.6-8.9); Platelet Count 186 K/mcL (140-400); Red Blood Count 2.59 M/mcL (4.19-5.50); Red Cell Distribution Width 15.5 % (11.5-14.5); Segmented Neutrophils % 66.8 %; White Blood Count 6.7 K/mcL (4.3-11.1)
[2019-08-04 05:29] LABS: Calcium 8.7 mg/dL (8.6-10.3); Magnesium 1.7 mg/dL (1.6-2.6); Phosphorous 5.8 mg/dL (2.7-4.5); Potassium 4.7 mEq/L (3.5-5.1)
[2019-08-04 05:36] LABS: Thyroid Stimulating Hormone 1.631 mcIU/mL (0.340-5.600)
[2019-08-04] MEDS: Insulin LISPRO 300 UNITS/3 ML VIAL SQ SCH ×3 (08:19→16:40)
[2019-08-04] MEDS: Fluticasone Propionate Nasal 50 MCG/SPRAY BOTTLE NS SCH (08:20)
[2019-08-04] MEDS: Folic Acid 1 MG TABLET PO SCH (08:20)
[2019-08-04] MEDS: Apixaban 5 MG TABLET PO SCH ×2 (08:20→20:40)
[2019-08-04] MEDS: Thiamine (B-1) 100 MG TABLET PO SCH (08:21)
[2019-08-04] MEDS: Finasteride 5 MG TABLET PO SCH (08:21)
[2019-08-04] MEDS: Metoprolol XL (24 HR) Succ 25 MG TAB.ER.24H PO SCH (08:21)
[2019-08-04] MEDS: Gabapentin 300 MG CAPSULE PO SCH (08:21)
[2019-08-04] MEDS: polyethylene glycoL 3350 17 GM POWD.PACK PO SCH (08:23)
[2019-08-04] MEDS ORDERED: Colchicine 0.6 MG TABLET PO SCH (09:00)
[2019-08-04] MEDS ORDERED: Tolvaptan 15 MG TABLET PO ONE (09:30)
[2019-08-04] MEDS ORDERED: *HR* HYDROcodone/Acet 5/325 mg TABLET PO PRN ×2 (10:01→15:06)
[2019-08-04] MEDS ORDERED: Dextrose Gel 15 GM/37.5 ML TUBE PO PRN ×2 (15:06)
[2019-08-04] MEDS ORDERED: Ipratropium/Albuterol Neb 3 ML IH PRN (15:06)
[2019-08-04] MEDS ORDERED: Naloxone 0.4 MG/ML INJ IVP PRN (15:06)
[2019-08-04] MEDS ORDERED: D5% in Water 1,000 ML IVC PRN (15:06)
[2019-08-04] MEDS ORDERED: Ondansetron 4 MG/2 ML VIAL IVP PRN (15:06)
[2019-08-04] MEDS ORDERED: *HR* Dextrose 50 % in Water (Syg) 50 ML SYRINGE IVP PRN (15:06)
[2019-08-04] MEDS ORDERED: Albumin 25% 25gram/100mL 25 GM/100 ML IV.SOLN IVPB SCH (16:00)
[2019-08-04] MEDS: Albumin 25% 25gram/100mL 25 GM/100 ML IV.SOLN IVPB SCH (16:31)
[2019-08-04 16:33] LABS: Calcium 8.7 mg/dL (8.6-10.3); Potassium 4.8 mEq/L (3.5-5.1)
[2019-08-04 17:39] LABS: Hematocrit 24.6 % (37.5-50.1); Hemoglobin 7.5 g/dL (12.9-16.9); Mean Corpuscular HGB Conc 30.5 g/dL (31.6-35.5); Mean Corpuscular Hemoglobin 28.6 pg (28.0-33.3); Mean Corpuscular Volume 93.9 fL (83.0-100.0); Mean Platelet Volume 11.1 fL (9.4-12.4); Platelet Count 176 K/mcL (140-400); Red Blood Count 2.62 M/mcL (4.19-5.50); Red Cell Distribution Width 15.3 % (11.5-14.5); White Blood Count 6.3 K/mcL (4.3-11.1)
[2019-08-04] MEDS: Furosemide 20 MG/2 ML VIAL IVP SCH (18:05)
[2019-08-04] MEDS ORDERED: Tiotropium 18 MCG inhalation IH SCH (21:00)
[2019-08-04] MEDS ORDERED: Furosemide 40 MG/4 ML VIAL IVP SCH ×2 (21:00)
[2019-08-04] MEDS ORDERED: Melatonin 3 MG TABLET PO SCH (21:00)
[2019-08-04] MEDS ORDERED: Gabapentin 300 MG CAPSULE PO SCH ×2 (21:00)
[2019-08-05] MEDS: Albumin 25% 25gram/100mL 25 GM/100 ML IV.SOLN IVPB SCH ×3 (01:01→15:04)
[2019-08-05] MEDS: Furosemide 20 MG/2 ML VIAL IVP SCH ×3 (01:01→17:40)
[2019-08-05 04:00] LABS: Basophils % 0.5 %; Eosinophils # 0.2 K/mcL (0.0-0.6); Eosinophils % 2.4 %; Hematocrit 23.6 % (37.5-50.1); Hemoglobin 7.3 g/dL (12.9-16.9); Immature Granulocytes % 0.3 % (0-4); Lymphocytes # 0.7 K/mcL (0.6-4.6); Mean Corpuscular HGB Conc 30.9 g/dL (31.6-35.5); Mean Corpuscular Hemoglobin 28.9 pg (28.0-33.3); Mean Corpuscular Volume 93.3 fL (83.0-100.0); Mean Platelet Volume 10.8 fL (9.4-12.4); Monocytes # 0.7 K/mcL (0.0-1.3); Neutrophils # 4.8 K/mcL (1.6-8.9); Platelet Count 174 K/mcL (140-400); Red Blood Count 2.53 M/mcL (4.19-5.50); Red Cell Distribution Width 15.3 % (11.5-14.5); Segmented Neutrophils % 74.8 %; White Blood Count 6.4 K/mcL (4.3-11.1)
[2019-08-05 04:08] LABS: Magnesium 1.6 mg/dL (1.6-2.6); Potassium 4.4 mEq/L (3.5-5.1)
[2019-08-05] MEDS: Insulin LISPRO 300 UNITS/3 ML VIAL SQ SCH ×3 (07:59→17:40)
[2019-08-05] MEDS: Apixaban 5 MG TABLET PO SCH ×3 (08:01→20:08)
[2019-08-05] MEDS ORDERED: Dextrose Gel 15 GM/37.5 ML TUBE PO PRN ×2 (08:55)
[2019-08-05] MEDS ORDERED: Naloxone 0.4 MG/ML INJ IVP PRN (08:55)
[2019-08-05] MEDS ORDERED: D5% in Water 1,000 ML IVC PRN (08:55)
[2019-08-05] MEDS ORDERED: *HR* Dextrose 50 % in Water (Syg) 50 ML SYRINGE IVP PRN (08:55)
[2019-08-05] MEDS ORDERED: Ipratropium/Albuterol Neb 3 ML IH PRN (08:55)
[2019-08-05] MEDS ORDERED: polyethylene glycoL 3350 17 GM POWD.PACK PO SCH (09:00)
[2019-08-05] MEDS ORDERED: Fluticasone Propionate Nasal 50 MCG/SPRAY BOTTLE NS SCH (09:00)
[2019-08-05] MEDS ORDERED: Finasteride 5 MG TABLET PO SCH (09:00)
[2019-08-05] MEDS ORDERED: Folic Acid 1 MG TABLET PO SCH (09:00)
[2019-08-05] MEDS ORDERED: Thiamine (B-1) 100 MG TABLET PO SCH (09:00)
[2019-08-05] MEDS: Fluticasone Propionate Nasal 50 MCG/SPRAY BOTTLE NS SCH (09:25)
[2019-08-05] MEDS: Folic Acid 1 MG TABLET PO SCH (09:25)
[2019-08-05] MEDS: Thiamine (B-1) 100 MG TABLET PO SCH (09:26)
[2019-08-05] MEDS: Finasteride 5 MG TABLET PO SCH (09:26)
[2019-08-05] MEDS: polyethylene glycoL 3350 17 GM POWD.PACK PO SCH (09:26)
[2019-08-05] MEDS: *HR* HYDROcodone/Acet 5/325 mg TABLET PO PRN ×3 (09:33→23:01)
[2019-08-05] MEDS: Gabapentin 300 MG CAPSULE PO SCH (20:08)
[2019-08-05] MEDS: Tiotropium 18 MCG inhalation IH SCH (20:10)
[2019-08-05] MEDS: Melatonin 3 MG TABLET PO SCH (20:11)
[2019-08-06] MEDS: Albumin 25% 25gram/100mL 25 GM/100 ML IV.SOLN IVPB SCH ×3 (00:08→18:26)
[2019-08-06] MEDS: Furosemide 20 MG/2 ML VIAL IVP SCH ×3 (01:46→19:07)
[2019-08-06] MEDS: *HR* HYDROcodone/Acet 5/325 mg TABLET PO PRN (05:37)
[2019-08-06 07:40] LABS: Basophils % 0.5 %; Eosinophils # 0.2 K/mcL (0.0-0.6); Eosinophils % 2.5 %; Hematocrit 20.5 % (37.5-50.1); Hemoglobin 6.7 g/dL (12.9-16.9); Immature Granulocytes % 0.3 % (0-4); Lymphocytes # 0.7 K/mcL (0.6-4.6); Lymphocytes % 11.4 %; Mean Corpuscular HGB Conc 32.7 g/dL (31.6-35.5); Mean Corpuscular Hemoglobin 29.9 pg (28.0-33.3); Mean Corpuscular Volume 91.5 fL (83.0-100.0); Monocytes # 0.6 K/mcL (0.0-1.3); Monocytes % 10.6 %; Neutrophils # 4.4 K/mcL (1.6-8.9); Platelet Count 161 K/mcL (140-400); Red Blood Count 2.24 M/mcL (4.19-5.50); Red Cell Distribution Width 15.1 % (11.5-14.5); Segmented Neutrophils % 74.7 %
[2019-08-06 07:44] LABS: Calcium 9.7 mg/dL (8.6-10.3); Magnesium 1.7 mg/dL (1.6-2.6); Phosphorous 4.9 mg/dL (2.7-4.5); Potassium 4.8 mEq/L (3.5-5.1)
[2019-08-06] MEDS: Thiamine (B-1) 100 MG TABLET PO SCH (08:21)
[2019-08-06] MEDS: Finasteride 5 MG TABLET PO SCH (08:21)
[2019-08-06] MEDS: Insulin LISPRO 300 UNITS/3 ML VIAL SQ SCH ×3 (08:22→17:18)
[2019-08-06] MEDS: Apixaban 5 MG TABLET PO SCH (08:22)
[2019-08-06] MEDS: Fluticasone Propionate Nasal 50 MCG/SPRAY BOTTLE NS SCH (08:22)
[2019-08-06] MEDS: polyethylene glycoL 3350 17 GM POWD.PACK PO SCH (08:22)
[2019-08-06] MEDS: Folic Acid 1 MG TABLET PO SCH (08:26)
[2019-08-06] MEDS: Pantoprazole 40 MG VIAL IVP SCH ×2 (10:43→17:18)
[2019-08-06] MEDS ORDERED: 0.9 % Sodium Chloride 250 ML ONE ×2 (11:21→17:15)
[2019-08-06] MEDS ORDERED: 0.9 % Sodium Chloride 250 ML IVC SCH (11:30)
[2019-08-06] MEDS: Ondansetron 4 MG/2 ML VIAL IVP PRN ×2 (14:24→21:45)
[2019-08-06] MEDS: Tiotropium 18 MCG inhalation IH SCH (20:28)
[2019-08-06] MEDS: Gabapentin 300 MG CAPSULE PO SCH (21:44)
[2019-08-06] MEDS: Melatonin 3 MG TABLET PO SCH (21:45)
[2019-08-06] MEDS: *HR* OxyCODONE Immed Rel 5 MG TABLET PO PRN (21:54)
[2019-08-06] MEDS ORDERED: Albumin 25% 25gram/100mL 25 GM/100 ML IV.SOLN IVPB ONE (23:00)
[2019-08-07] MEDS: Albumin 25% 25gram/100mL 25 GM/100 ML IV.SOLN IVPB SCH ×4 (00:13→23:26)
[2019-08-07] MEDS: Furosemide 20 MG/2 ML VIAL IVP SCH ×3 (02:06→18:28)
[2019-08-07] MEDS: Pantoprazole 40 MG VIAL IVP SCH ×2 (05:04→18:27)
[2019-08-07 07:12] LABS: Basophils % 0.3 %; Eosinophils # 0.1 K/mcL (0.0-0.6); Eosinophils % 1.7 %; Hematocrit 24.5 % (37.5-50.1); Hemoglobin 7.8 g/dL (12.9-16.9); Immature Granulocytes % 0.3 % (0-4); Lymphocytes # 0.6 K/mcL (0.6-4.6); Lymphocytes % 9.7 %; Mean Corpuscular HGB Conc 31.8 g/dL (31.6-35.5); Mean Corpuscular Hemoglobin 29.2 pg (28.0-33.3); Mean Corpuscular Volume 91.8 fL (83.0-100.0); Mean Platelet Volume 10.2 fL (9.4-12.4); Monocytes # 0.8 K/mcL (0.0-1.3); Monocytes % 13.2 %; Neutrophils # 4.7 K/mcL (1.6-8.9); Platelet Count 161 K/mcL (140-400); Red Blood Count 2.67 M/mcL (4.19-5.50); Red Cell Distribution Width 14.9 % (11.5-14.5); Segmented Neutrophils % 74.8 %; White Blood Count 6.3 K/mcL (4.3-11.1)
[2019-08-07] MEDS: Thiamine (B-1) 100 MG TABLET PO SCH (07:26)
[2019-08-07] MEDS: Finasteride 5 MG TABLET PO SCH (07:26)
[2019-08-07] MEDS: Folic Acid 1 MG TABLET PO SCH (07:26)
[2019-08-07] MEDS: Fluticasone Propionate Nasal 50 MCG/SPRAY BOTTLE NS SCH (07:27)
[2019-08-07] MEDS ORDERED: *HR* Propofol 200 MG/20 ML VIAL IVP ONE ×2 (10:56→12:27)
[2019-08-07] MEDS ORDERED: Lidocaine -MPF 2% 2 ML VIAL ONE ×2 (10:56→12:27)
[2019-08-07 14:15] LABS: Calcium 9.9 mg/dL (8.6-10.3); Magnesium 1.8 mg/dL (1.6-2.6); Phosphorous 3.8 mg/dL (2.7-4.5); Potassium 4.3 mEq/L (3.5-5.1)
[2019-08-07] MEDS: Insulin LISPRO 300 UNITS/3 ML VIAL SQ SCH ×2 (16:05→16:55)
[2019-08-07] MEDS: *HR* OxyCODONE Immed Rel 5 MG TABLET PO PRN ×2 (16:54→23:25)
[2019-08-07] MEDS: Tiotropium 18 MCG inhalation IH SCH (19:45)
[2019-08-07] MEDS: Melatonin 3 MG TABLET PO SCH (20:47)
[2019-08-07] MEDS: Gabapentin 300 MG CAPSULE PO SCH (20:47)
[2019-08-08] MEDS: Furosemide 20 MG/2 ML VIAL IVP SCH ×3 (03:26→18:16)
[2019-08-08 06:05] LABS: Basophils % 0.3 %; Eosinophils # 0.2 K/mcL (0.0-0.6); Eosinophils % 2.2 %; Hematocrit 23.6 % (37.5-50.1); Hemoglobin 7.6 g/dL (12.9-16.9); Immature Granulocytes % 0.3 % (0-4); Lymphocytes # 0.8 K/mcL (0.6-4.6); Lymphocytes % 11.4 %; Mean Corpuscular HGB Conc 32.2 g/dL (31.6-35.5); Mean Corpuscular Volume 93.3 fL (83.0-100.0); Mean Platelet Volume 11.3 fL (9.4-12.4); Monocytes # 0.8 K/mcL (0.0-1.3); Monocytes % 12.1 %; Neutrophils # 4.9 K/mcL (1.6-8.9); Platelet Count 150 K/mcL (140-400); Red Blood Count 2.53 M/mcL (4.19-5.50); Red Cell Distribution Width 14.8 % (11.5-14.5); Segmented Neutrophils % 73.7 %; White Blood Count 6.7 K/mcL (4.3-11.1)
[2019-08-08] MEDS: Pantoprazole 40 MG VIAL IVP SCH ×2 (06:22→18:16)
[2019-08-08 06:24] LABS: Calcium 9.8 mg/dL (8.6-10.3); Magnesium 1.8 mg/dL (1.6-2.6); Phosphorous 4.3 mg/dL (2.7-4.5); Potassium 4.3 mEq/L (3.5-5.1)
[2019-08-08] MEDS: Albumin 25% 25gram/100mL 25 GM/100 ML IV.SOLN IVPB SCH ×2 (10:23→16:27)
[2019-08-08] MEDS: Finasteride 5 MG TABLET PO SCH (10:27)
[2019-08-08] MEDS: *HR* OxyCODONE Immed Rel 5 MG TABLET PO PRN ×2 (10:27→18:16)
[2019-08-08] MEDS: Thiamine (B-1) 100 MG TABLET PO SCH (10:27)
[2019-08-08] MEDS: Folic Acid 1 MG TABLET PO SCH (10:27)
[2019-08-08] MEDS: Fluticasone Propionate Nasal 50 MCG/SPRAY BOTTLE NS SCH (10:28)
[2019-08-08] MEDS: Insulin LISPRO 300 UNITS/3 ML VIAL SQ SCH ×3 (10:28→16:28)
[2019-08-08] MEDS: Tiotropium 18 MCG inhalation IH SCH (19:34)
[2019-08-08] MEDS: Gabapentin 300 MG CAPSULE PO SCH (22:31)
[2019-08-08] MEDS: Melatonin 3 MG TABLET PO SCH (22:31)
[2019-08-09] MEDS: *HR* OxyCODONE Immed Rel 5 MG TABLET PO PRN ×3 (00:35→19:55)
[2019-08-09] MEDS: Albumin 25% 25gram/100mL 25 GM/100 ML IV.SOLN IVPB SCH ×4 (00:36→23:33)
[2019-08-09] MEDS: Furosemide 20 MG/2 ML VIAL IVP SCH ×4 (02:33→23:34)
[2019-08-09 04:37] LABS: Basophils % 0.3 %; Eosinophils # 0.2 K/mcL (0.0-0.6); Eosinophils % 2.9 %; Hematocrit 25.4 % (37.5-50.1); Immature Granulocytes % 0.5 % (0-4); Lymphocytes # 0.8 K/mcL (0.6-4.6); Lymphocytes % 10.2 %; Mean Corpuscular HGB Conc 31.5 g/dL (31.6-35.5); Mean Corpuscular Hemoglobin 29.4 pg (28.0-33.3); Mean Corpuscular Volume 93.4 fL (83.0-100.0); Mean Platelet Volume 10.8 fL (9.4-12.4); Monocytes # 0.8 K/mcL (0.0-1.3); Monocytes % 10.8 %; Neutrophils # 5.8 K/mcL (1.6-8.9); Platelet Count 165 K/mcL (140-400); Red Blood Count 2.72 M/mcL (4.19-5.50); Red Cell Distribution Width 14.7 % (11.5-14.5); Segmented Neutrophils % 75.3 %; White Blood Count 7.7 K/mcL (4.3-11.1)
[2019-08-09 04:57] LABS: BUN/Creatinine Ratio 35 (6-26); Blood Urea Nitrogen 50 mg/dL (6-20); Carbon Dioxide 26 mEq/L (23-29); Chloride 99 mEq/L (98-107); Glucose 144 mg/dL (70-105); Magnesium 1.9 mg/dL (1.6-2.6); Osmolality,Calculated 290 (280-300); Phosphorous 3.7 mg/dL (2.7-4.5); Potassium 4.1 mEq/L (3.5-5.1); Sodium 132 mEq/L (136-145); eGFR For African Americans > 60 (> 60); eGFR For Non-African Americans 51 (> 60)
[2019-08-09] MEDS: Pantoprazole 40 MG VIAL IVP SCH (06:01)
[2019-08-09] MEDS: Folic Acid 1 MG TABLET PO SCH (08:15)
[2019-08-09] MEDS: Finasteride 5 MG TABLET PO SCH (08:15)
[2019-08-09] MEDS: Thiamine (B-1) 100 MG TABLET PO SCH (08:15)
[2019-08-09] MEDS: Fluticasone Propionate Nasal 50 MCG/SPRAY BOTTLE NS SCH (08:17)
[2019-08-09] MEDS: Insulin LISPRO 300 UNITS/3 ML VIAL SQ SCH ×3 (08:17→16:52)
[2019-08-09] MEDS: Melatonin 3 MG TABLET PO SCH (19:51)
[2019-08-09] MEDS: Gabapentin 300 MG CAPSULE PO SCH (19:51)
[2019-08-09] MEDS: Tiotropium 18 MCG inhalation IH SCH (20:18)
[2019-08-10 04:57] LABS: Basophils % 0.6 %; Eosinophils # 0.3 K/mcL (0.0-0.6); Eosinophils % 4.1 %; Hematocrit 24.7 % (37.5-50.1); Hemoglobin 7.9 g/dL (12.9-16.9); Immature Granulocytes % 0.1 % (0-4); Immature Platelets 5.2 % (1.1-6.1); Lymphocytes # 0.8 K/mcL (0.6-4.6); Lymphocytes % 11.1 %; Mean Corpuscular Hemoglobin 30.4 pg (28.0-33.3); Mean Platelet Volume 11.3 fL (9.4-12.4); Monocytes # 0.6 K/mcL (0.0-1.3); Neutrophils # 5.3 K/mcL (1.6-8.9); Platelet Count 154 K/mcL (140-400); Red Cell Distribution Width 14.7 % (11.5-14.5); Segmented Neutrophils % 75.1 %; White Blood Count 7.1 K/mcL (4.3-11.1)
[2019-08-10 05:19] LABS: Calcium 10.2 mg/dL (8.6-10.3); Magnesium 1.7 mg/dL (1.6-2.6); Phosphorous 4.5 mg/dL (2.7-4.5); Potassium 4.5 mEq/L (3.5-5.1)
[2019-08-10] MEDS: Insulin LISPRO 300 UNITS/3 ML VIAL SQ SCH ×3 (08:07→16:31)
[2019-08-10] MEDS: Thiamine (B-1) 100 MG TABLET PO SCH (08:14)
[2019-08-10] MEDS: Finasteride 5 MG TABLET PO SCH (08:14)
[2019-08-10] MEDS: Folic Acid 1 MG TABLET PO SCH (08:15)
[2019-08-10] MEDS: Albumin 25% 25gram/100mL 25 GM/100 ML IV.SOLN IVPB SCH (08:15)
[2019-08-10] MEDS: Fluticasone Propionate Nasal 50 MCG/SPRAY BOTTLE NS SCH (08:16)
[2019-08-10] MEDS: *HR* OxyCODONE Immed Rel 5 MG TABLET PO PRN ×2 (08:25→18:45)
[2019-08-10] MEDS ORDERED: Spironolactone 25 MG TABLET PO SCH (09:00)
[2019-08-10] MEDS: Furosemide 20 MG/2 ML VIAL IVP SCH (10:06)
[2019-08-10] MEDS: Furosemide 40 MG TABLET PO SCH (16:31)
[2019-08-10] MEDS: Gabapentin 300 MG CAPSULE PO SCH (19:44)
[2019-08-10] MEDS: Melatonin 3 MG TABLET PO SCH (19:44)
[2019-08-10] MEDS: Tiotropium 18 MCG inhalation IH SCH (20:11)
[2019-08-10] MEDS ORDERED: Insulin LISPRO 300 UNITS/3 ML VIAL SQ SCH (21:00)
[2019-08-11 04:58] LABS: Basophils % 0.4 %; Eosinophils # 0.2 K/mcL (0.0-0.6); Eosinophils % 2.9 %; Hematocrit 24.9 % (37.5-50.1); Hemoglobin 7.9 g/dL (12.9-16.9); Immature Granulocytes % 0.3 % (0-4); Lymphocytes # 0.7 K/mcL (0.6-4.6); Lymphocytes % 10.2 %; Mean Corpuscular HGB Conc 31.7 g/dL (31.6-35.5); Mean Corpuscular Hemoglobin 29.7 pg (28.0-33.3); Mean Corpuscular Volume 93.6 fL (83.0-100.0); Monocytes # 0.6 K/mcL (0.0-1.3); Monocytes % 8.1 %; Neutrophils # 5.6 K/mcL (1.6-8.9); Platelet Count 165 K/mcL (140-400); Red Blood Count 2.66 M/mcL (4.19-5.50); Red Cell Distribution Width 14.5 % (11.5-14.5); Segmented Neutrophils % 78.1 %; White Blood Count 7.1 K/mcL (4.3-11.1)
[2019-08-11 05:16] LABS: BUN/Creatinine Ratio 35 (6-26); Blood Urea Nitrogen 50 mg/dL (6-20); Calcium 9.8 mg/dL (8.6-10.3); Carbon Dioxide 23 mEq/L (23-29); Chloride 99 mEq/L (98-107); Glucose 134 mg/dL (70-105); Magnesium 1.9 mg/dL (1.6-2.6); Osmolality,Calculated 287 (280-300); Phosphorous 4.2 mg/dL (2.7-4.5); Potassium 4.1 mEq/L (3.5-5.1); Sodium 131 mEq/L (136-145); eGFR For African Americans > 60 (> 60); eGFR For Non-African Americans 51 (> 60)
[2019-08-11] MEDS: *HR* OxyCODONE Immed Rel 5 MG TABLET PO PRN ×2 (05:25→13:18)
[2019-08-11] MEDS ORDERED: Artificial Tears SOLN 15 ML BOTTLE BOTH EYES PRN (08:04)
[2019-08-11] MEDS: Furosemide 40 MG TABLET PO SCH (08:13)
[2019-08-11] MEDS: Folic Acid 1 MG TABLET PO SCH (08:14)
[2019-08-11] MEDS: Fluticasone Propionate Nasal 50 MCG/SPRAY BOTTLE NS SCH (08:15)
[2019-08-11] MEDS: Insulin LISPRO 300 UNITS/3 ML VIAL SQ SCH (08:15)
[2019-08-11] MEDS: Finasteride 5 MG TABLET PO SCH (08:16)
[2019-08-11] MEDS: Thiamine (B-1) 100 MG TABLET PO SCH (08:16)
[2019-08-11] MEDS ORDERED: CLEAR EYES NATURAL TEARS 15 ML BOTTLE BOTH EYES PRN (08:30)
[2019-08-11 11:20] VITALS: BP 165/75
== END 2019-08-11 13:46 | DRG 812 ==
LOC: EMEROOARM 13:10 → 2NENU 13:10 → SUATTDRO 15:34 → 2NENU 16:02 → ICNU 08-04 14:58 → 2ANU 08-05 14:48
PROVIDERS: ADMIT Internal Medicine; ATTEND Internal Medicine

== ENCOUNTER 2019-08-17 16:07 | Observation (INO) ==
[2019-08-17] MEDS ORDERED: Furosemide 40 MG/4 ML VIAL IVP ONE (16:34)
[2019-08-17 16:41] LABS: Basophils % 0.3 %; Eosinophils # 0.2 K/mcL (0.0-0.6); Eosinophils % 2.1 %; Hematocrit 23.4 % (37.5-50.1); Hemoglobin 7.5 g/dL (12.9-16.9); Immature Granulocytes % 0.3 % (0-4); Lymphocytes # 0.8 K/mcL (0.6-4.6); Lymphocytes % 10.6 %; Mean Corpuscular HGB Conc 32.1 g/dL (31.6-35.5); Mean Corpuscular Volume 93.6 fL (83.0-100.0); Monocytes # 0.4 K/mcL (0.0-1.3); Neutrophils # 5.8 K/mcL (1.6-8.9); Platelet Count 209 K/mcL (140-400); Red Cell Distribution Width 14.8 % (11.5-14.5); Segmented Neutrophils % 80.7 %; White Blood Count 7.2 K/mcL (4.3-11.1)
[2019-08-17 17:13] LABS: Troponin I 0.07 ng/mL (< 0.04)
[2019-08-17] MEDS ORDERED: *HR* Dextrose 50 % in Water (Syg) 50 ML SYRINGE IVP PRN (22:02)
[2019-08-17] MEDS ORDERED: Ipratropium/Albuterol Neb 3 ML IH PRN (22:02)
[2019-08-17] MEDS ORDERED: Dextrose Gel 15 GM/37.5 ML TUBE PO PRN ×2 (22:02)
[2019-08-17] MEDS ORDERED: D5% in Water 1,000 ML IVC PRN (22:02)
[2019-08-17] MEDS ORDERED: Naloxone 0.4 MG/ML INJ IVP PRN (22:02)
[2019-08-17] MEDS ORDERED: Albuterol 2.5 MG/3 ML NEBULIZER IH PRN (22:02)
[2019-08-17] MEDS ORDERED: Aspirin 81 MG TAB.CHEW PO ONE (22:06)
[2019-08-17] MEDS ORDERED: *HR* HYDROcodone/Acet 5/325 mg TABLET PO PRN (22:08)
[2019-08-17] MEDS ORDERED: Benzonatate 100 MG CAPSULE PO PRN (22:08)
[2019-08-17] MEDS ORDERED: Gabapentin 300 MG CAPSULE PO SCH (22:15)
[2019-08-17] MEDS ORDERED: Apixaban 5 MG TABLET PO SCH ×2 (22:15→22:45)
[2019-08-17] MEDS ORDERED: Melatonin 3 MG TABLET PO SCH (22:15)
[2019-08-17] MEDS ORDERED: 0.9 % Sodium Chloride 500 ML IVC SCH (22:15)
[2019-08-17] MEDS ORDERED: Insulin LISPRO 300 UNITS/3 ML VIAL SQ SCH (22:30)
[2019-08-17 23:01] LABS: Bilirubin,Urine Negative (Negative); Blood,Urine Trace (Negative); Clarity,Urine Cloudy (Clear); Color,Urine Yellow (Yellow); Glucose,Urine (UA) Normal (Normal); Ketones,Urine Negative (Negative); Leukocyte Esterase,Urine Large (Negative); Nitrite,Urine Negative (Negative); PH,Urine 5.5 pH Units (5.0-8.0); Protein,Urine Negative (Neg-Trace); Specific Gravity,Urine 1.018 (1.010-1.025); Urobilinogen,Urine Normal (Normal)
[2019-08-17 23:04] LABS: Bacteria,Urine Moderate per hpf (None-Few); Hyaline Casts,Urine None Seen per lpf (None-Few); Squamous Epithelial Cell,Urine Few per lpf (None-Few); WBC,Urine TNTC per hpf (0-3)
[2019-08-17] MEDS: Nicotine 14 MG PATCH.TD24 TD SCH (23:04)
[2019-08-17 23:11] LABS: RBC,Urine 0-3 per hpf (0-3)
[2019-08-18 00:44] LABS: Basophils % 0.3 %; Eosinophils # 0.2 K/mcL (0.0-0.6); Eosinophils % 2.4 %; Hematocrit 21.4 % (37.5-50.1); Hemoglobin 6.7 g/dL (12.9-16.9); Immature Granulocytes % 0.3 % (0-4); Lymphocytes # 0.8 K/mcL (0.6-4.6); Lymphocytes % 12.8 %; Mean Corpuscular HGB Conc 31.3 g/dL (31.6-35.5); Mean Corpuscular Hemoglobin 29.1 pg (28.0-33.3); Mean Platelet Volume 10.7 fL (9.4-12.4); Monocytes # 0.5 K/mcL (0.0-1.3); Monocytes % 8.7 %; Neutrophils # 4.7 K/mcL (1.6-8.9); Platelet Count 170 K/mcL (140-400); Segmented Neutrophils % 75.5 %; White Blood Count 6.2 K/mcL (4.3-11.1)
[2019-08-18 00:52] LABS: Albumin/Globulin Ratio 1.9 (1.1-2.2); Bilirubin,Total 0.5 mg/dL (0.3-1.0); Calcium 9.1 mg/dL (8.6-10.3); Globulin 2.1 g/dL (2.4-3.5); Magnesium 1.6 mg/dL (1.6-2.6); Phosphorous 4.6 mg/dL (2.7-4.5); Potassium 4.2 mEq/L (3.5-5.1); Total Protein 6.1 g/dL (6.4-8.9)
[2019-08-18 00:58] LABS: INR 2.1
[2019-08-18] MEDS ORDERED: Acetaminophen 325 MG TABLET PO ONE (01:07)
[2019-08-18] MEDS ORDERED: Pantoprazole 40 MG VIAL IVP SCH (01:08)
[2019-08-18] MEDS ORDERED: 0.9 % Sodium Chloride 250 ML IVC SCH (01:15)
[2019-08-18 05:13] LABS: Calcium 8.7 mg/dL (8.6-10.3); Potassium 4.2 mEq/L (3.5-5.1); Troponin I 0.07 ng/mL (< 0.04)
[2019-08-18 07:28] LABS: Basophils % 0.3 %; Eosinophils # 0.2 K/mcL (0.0-0.6); Eosinophils % 2.9 %; Hematocrit 21.6 % (37.5-50.1); Hemoglobin 6.9 g/dL (12.9-16.9); Immature Granulocytes % 0.2 % (0-4); Lymphocytes # 0.8 K/mcL (0.6-4.6); Lymphocytes % 13.1 %; Mean Corpuscular HGB Conc 31.9 g/dL (31.6-35.5); Mean Corpuscular Hemoglobin 29.6 pg (28.0-33.3); Mean Corpuscular Volume 92.7 fL (83.0-100.0); Mean Platelet Volume 11.1 fL (9.4-12.4); Monocytes # 0.5 K/mcL (0.0-1.3); Monocytes % 7.6 %; Neutrophils # 4.7 K/mcL (1.6-8.9); Platelet Count 178 K/mcL (140-400); Red Blood Count 2.33 M/mcL (4.19-5.50); Red Cell Distribution Width 15.1 % (11.5-14.5); Segmented Neutrophils % 75.9 %; White Blood Count 6.2 K/mcL (4.3-11.1)
[2019-08-18] MEDS ORDERED: Insulin LISPRO 300 UNITS/3 ML VIAL SQ SCH ×2 (07:30→12:00)
[2019-08-18] MEDS ORDERED: cefTRIAXone 2,000 MG in Water for inj. (sterile) 20 ML IVP ONE (08:29)
[2019-08-18] MEDS ORDERED: 0.9 % Sodium Chloride 500 ML IVC ONE (08:34)
[2019-08-18] MEDS ORDERED: Hydrocortisone Sodium Succ 100 MG/2 ML VIAL IVP ONE (08:34)
[2019-08-18 09:07] LABS: VBG HCO3 22 mEq/L (21-27); VBG PCO2 33 mmHg (41-51); VBG PH 7.42 pH Units (7.32-7.42); VBG PO2 119 mmHg (25-50)
[2019-08-18] MEDS ORDERED: 0.9 % Sodium Chloride 500 ML ONE (09:24)
[2019-08-18] MEDS: Nicotine 14 MG PATCH.TD24 TD SCH (09:32)
[2019-08-18] MEDS ORDERED: Lactulose Oral Soln 20 GM/30 ML UDC PO ONE (10:26)
[2019-08-18 10:38] LABS: Albumin 3.8 g/dL (3.5-5.7); Albumin/Globulin Ratio 1.8 (1.1-2.2); Bilirubin,Direct 0.2 mg/dL (0.0-0.2); Bilirubin,Indirect 0.5 mg/dL (0.0-1.0); Bilirubin,Total 0.7 mg/dL (0.3-1.0); Globulin 2.1 g/dL (2.4-3.5); Total Protein 5.9 g/dL (6.4-8.9)
[2019-08-18 11:15] VITALS: BP 100/59
[2019-08-18] MEDS ORDERED: Albumin 25% 25gram/100mL 25 GM/100 ML IV.SOLN IVPB ONE (12:07)
[2019-08-18 12:14] LABS: Hematocrit 24.1 % (37.5-50.1)
[2019-08-18 12:18] LABS: Hemoglobin 8.9 g/dL (12.9-16.9)
[2019-08-18] MEDS ORDERED: Octreotide 50 MCG/ML INJ IVP ONE (14:34)
[2019-08-18] MEDS ORDERED: *HR* Heparin 5,000 UNIT/ML VIAL SQ SCH (22:04)
== END 2019-08-18 15:16 | disposition other institution (70) ==
LOC: 2NNU 16:07 → EMEROOARM 16:07 → SUATTDRO 20:27 → 2NNU 20:32
PROVIDERS: ADMIT Internal Medicine; ATTEND Student in an Organized Health Care Education/Training Program

== ENCOUNTER 2019-11-16 11:49 | Inpatient (IN) ==
[2019-11-16 13:06] LABS: Basophils % 0.2 %; Eosinophils # 0.1 K/mcL (0.0-0.6); Eosinophils % 1.1 %; Hematocrit 21.5 % (37.5-50.1); Hemoglobin 6.9 g/dL (12.9-16.9); Immature Granulocytes % 0.3 % (0-4); Lymphocytes # 0.3 K/mcL (0.6-4.6); Lymphocytes % 2.6 %; Mean Corpuscular HGB Conc 32.1 g/dL (31.6-35.5); Mean Corpuscular Hemoglobin 29.6 pg (28.0-33.3); Mean Corpuscular Volume 92.3 fL (83.0-100.0); Mean Platelet Volume 11.9 fL (9.4-12.4); Monocytes # 0.5 K/mcL (0.0-1.3); Monocytes % 3.8 %; Neutrophils # 11.1 K/mcL (1.6-8.9); Platelet Count 97 K/mcL (140-400); Red Blood Count 2.33 M/mcL (4.19-5.50); Red Cell Distribution Width 16.6 % (11.5-14.5); White Blood Count 12.1 K/mcL (4.3-11.1)
[2019-11-16 13:29] LABS: Troponin I 0.09 ng/mL (< 0.04)
[2019-11-16 13:51] LABS: Calcium 9.1 mg/dL (8.6-10.3); Potassium 4.6 mEq/L (3.5-5.1)
[2019-11-16] MEDS ORDERED: Furosemide 40 MG/4 ML VIAL IVP ONE (16:22)
[2019-11-16] MEDS ORDERED: Naloxone 0.4 MG/ML INJ IVP PRN (16:23)
[2019-11-16] MEDS ORDERED: 0.9 % Sodium Chloride 250 ML ONE (16:32)
[2019-11-16 16:48] LABS: Bacteria,Urine Few per hpf (None-Few); Bilirubin,Urine Negative (Negative); Blood,Urine Negative (Negative); Clarity,Urine Clear (Clear); Color,Urine Yellow (Yellow); Glucose,Urine (UA) Normal (Normal); Hyaline Casts,Urine Few per lpf (None Seen); Ketones,Urine Negative (Negative); Leukocyte Esterase,Urine Small (Negative); Mucus,Urine Few per lpf (None-Few); Nitrite,Urine Negative (Negative); PH,Urine 5.5 pH Units (5.0-8.0); Protein,Urine Trace mg/dL (Neg-Trace); RBC,Urine 0-3 per hpf (0-3); Specific Gravity,Urine 1.018 (1.010-1.025); Squamous Epithelial Cell,Urine Few per hpf (None-Few); Urobilinogen,Urine Normal (Normal)
[2019-11-16 17:03] LABS: VBG HCO3 23 mEq/L (21-27); VBG PCO2 35 mmHg (41-51); VBG PH 7.42 pH Units (7.32-7.42); VBG PO2 209 mmHg (25-50)
[2019-11-16] MEDS ORDERED: D5% in Water 1,000 ML IVC PRN (17:11)
[2019-11-16] MEDS ORDERED: Dextrose Gel 15 GM/37.5 ML TUBE PO PRN ×2 (17:11)
[2019-11-16] MEDS ORDERED: *HR* Dextrose 50 % in Water (Vial) 50 ML VIAL IVP PRN (17:11)
[2019-11-16] MEDS ORDERED: Fluticasone Propionate Nasal 50 MCG/SPRAY BOTTLE NS PRN (17:21)
[2019-11-16] MEDS ORDERED: Simethicone 80 MG TAB.CHEW PO PRN (17:21)
[2019-11-16] MEDS: Pantoprazole 40 MG VIAL IVP SCH (18:52)
[2019-11-16] MEDS: Lactulose Oral Soln 20 GM/30 ML UDC PO SCH ×2 (18:52→21:17)
[2019-11-16] MEDS: Albumin 25% 25gram/100mL 25 GM/100 ML IV.SOLN IVPB SCH ×2 (18:52→23:46)
[2019-11-16 19:36] LABS: Basophils % 0.2 %; Eosinophils # 0.2 K/mcL (0.0-0.6); Eosinophils % 1.5 %; Hematocrit 23.6 % (37.5-50.1); Hemoglobin 7.5 g/dL (12.9-16.9); Immature Granulocytes % 0.3 % (0-4); Lymphocytes # 0.3 K/mcL (0.6-4.6); Lymphocytes % 3.3 %; Mean Corpuscular HGB Conc 31.8 g/dL (31.6-35.5); Mean Corpuscular Hemoglobin 29.3 pg (28.0-33.3); Mean Corpuscular Volume 92.2 fL (83.0-100.0); Mean Platelet Volume 11.9 fL (9.4-12.4); Monocytes # 0.5 K/mcL (0.0-1.3); Monocytes % 4.4 %; Neutrophils # 9.3 K/mcL (1.6-8.9); Platelet Count 101 K/mcL (140-400); Red Blood Count 2.56 M/mcL (4.19-5.50); Red Cell Distribution Width 16.2 % (11.5-14.5); Segmented Neutrophils % 90.3 %; White Blood Count 10.3 K/mcL (4.3-11.1)
[2019-11-16 20:13] LABS: Calcium 9.2 mg/dL (8.6-10.3); Potassium 4.6 mEq/L (3.5-5.1)
[2019-11-16] MEDS: Insulin LISPRO 300 UNITS/3 ML VIAL SQ SCH (20:16)
[2019-11-16] MEDS: Ipratropium/Albuterol Neb 3 ML IH SCH (20:20)
[2019-11-16] MEDS: Furosemide 40 MG/4 ML VIAL IVP SCH (21:18)
[2019-11-17] MEDS: Ipratropium/Albuterol Neb 3 ML IH SCH ×7 (00:19→23:29)
[2019-11-17 01:20] LABS: Hemoglobin 6.7 g/dL (12.9-16.9); Lymphocytes % 4.2 %
[2019-11-17 01:21] LABS: Basophils % 0.4 %; Eosinophils # 0.1 K/mcL (0.0-0.6); Eosinophils % 1.2 %; Hematocrit 21.3 % (37.5-50.1); Immature Granulocytes % 0.4 % (0-4); Immature Platelets 5.3 % (1.1-6.1); Lymphocytes # 0.3 K/mcL (0.6-4.6); Mean Corpuscular HGB Conc 31.5 g/dL (31.6-35.5); Mean Corpuscular Hemoglobin 29.8 pg (28.0-33.3); Mean Corpuscular Volume 94.7 fL (83.0-100.0); Mean Platelet Volume 11.8 fL (9.4-12.4); Monocytes # 0.4 K/mcL (0.0-1.3); Monocytes % 5.3 %; Red Blood Count 2.25 M/mcL (4.19-5.50); Red Cell Distribution Width 16.4 % (11.5-14.5); Segmented Neutrophils % 88.5 %; White Blood Count 8.2 K/mcL (4.3-11.1)
[2019-11-17 01:25] LABS: Neutrophils # 7.3 K/mcL (1.6-8.9); Platelet Count 87 K/mcL (140-400)
[2019-11-17 01:39] LABS: Calcium 9.1 mg/dL (8.6-10.3); Magnesium 2.3 mg/dL (1.6-2.6); Potassium 4.6 mEq/L (3.5-5.1)
[2019-11-17] MEDS: polyethylene glycoL 3350 17 GM POWD.PACK PO PRN ×2 (02:41→21:34)
[2019-11-17] MEDS ORDERED: Bisacodyl 10 MG RECTAL SUPPOSITORY RC ONE (03:35)
[2019-11-17 03:59] LABS: Hematocrit 20.8 % (37.5-50.1); Hemoglobin 6.7 g/dL (12.9-16.9)
[2019-11-17] MEDS: Pantoprazole 40 MG VIAL IVP SCH ×2 (05:49→17:06)
[2019-11-17] MEDS: Insulin LISPRO 300 UNITS/3 ML VIAL SQ SCH ×4 (07:33→21:12)
[2019-11-17] MEDS ORDERED: NON-FORMULARY MEDICATION 1 EACH EACH (Umeclidinium Bromide [Incruse Ellipta] 1 PUFF) IH SCH (09:00)
[2019-11-17] MEDS: Lactulose Oral Soln 20 GM/30 ML UDC PO SCH ×2 (09:23→21:13)
[2019-11-17] MEDS: Metoprolol XL (24 HR) Succ 25 MG TAB.ER.24H PO SCH (09:24)
[2019-11-17] MEDS: Albumin 25% 25gram/100mL 25 GM/100 ML IV.SOLN IVPB SCH (09:25)
[2019-11-17] MEDS: Furosemide 40 MG/4 ML VIAL IVP SCH ×2 (09:25→21:13)
[2019-11-17 11:36] LABS: Albumin 4.3 g/dL (3.5-5.7)
[2019-11-17] MEDS ORDERED: cefTRIAXone 2,000 MG in Water for inj. (sterile) 20 ML IVP ONE (11:38)
[2019-11-17 14:29] LABS: INR 1.7
[2019-11-17 16:57] LABS: Hematocrit 23.7 % (37.5-50.1); Hemoglobin 7.5 g/dL (12.9-16.9)
[2019-11-17 17:12] LABS: % Iron Saturation 18 % (20-55); Iron 59 mcg/dL (65-175); Transferrin 233 mg/dL (203-362)
[2019-11-17 17:30] LABS: Ferritin 132 ng/mL (20-250)
[2019-11-18 01:05] LABS: Hemoglobin 7.1 g/dL (12.9-16.9); Immature Platelets 6.8 % (1.1-6.1); Mean Corpuscular HGB Conc 32.3 g/dL (31.6-35.5); Mean Corpuscular Hemoglobin 29.1 pg (28.0-33.3); Mean Corpuscular Volume 90.2 fL (83.0-100.0); Red Blood Count 2.44 M/mcL (4.19-5.50); White Blood Count 7.8 K/mcL (4.3-11.1)
[2019-11-18 01:17] LABS: Potassium 4.6 mEq/L (3.5-5.1)
[2019-11-18] MEDS: Ipratropium/Albuterol Neb 3 ML IH SCH ×6 (03:07→23:25)
[2019-11-18] MEDS: Pantoprazole 40 MG VIAL IVP SCH ×2 (05:30→19:11)
[2019-11-18] MEDS: Furosemide 40 MG/4 ML VIAL IVP SCH ×2 (10:53→20:21)
[2019-11-18] MEDS: Insulin LISPRO 300 UNITS/3 ML VIAL SQ SCH ×4 (10:54→20:46)
[2019-11-18] MEDS: Metoprolol XL (24 HR) Succ 25 MG TAB.ER.24H PO SCH (10:54)
[2019-11-18] MEDS: Lactulose Oral Soln 20 GM/30 ML UDC PO SCH ×2 (10:54→20:20)
[2019-11-18] MEDS: cefTRIAXone 1,000 MG in Water for inj. (sterile) 10 ML IVP SCH (14:28)
[2019-11-18] MEDS: polyethylene glycoL 3350 17 GM POWD.PACK PO PRN (14:40)
[2019-11-19] MEDS: Ipratropium/Albuterol Neb 3 ML IH SCH ×7 (03:33→23:04)
[2019-11-19] MEDS: Pantoprazole 40 MG VIAL IVP SCH ×2 (05:15→17:07)
[2019-11-19 05:59] LABS: Hematocrit 21.2 % (37.5-50.1); Mean Corpuscular Hemoglobin 29.8 pg (28.0-33.3); Mean Corpuscular Volume 90.2 fL (83.0-100.0); Mean Platelet Volume 11.3 fL (9.4-12.4); Platelet Count 115 K/mcL (140-400); Red Blood Count 2.35 M/mcL (4.19-5.50); White Blood Count 7.1 K/mcL (4.3-11.1)
[2019-11-19 06:25] LABS: Calcium 9.5 mg/dL (8.6-10.3); Potassium 4.6 mEq/L (3.5-5.1)
[2019-11-19] MEDS: Insulin LISPRO 300 UNITS/3 ML VIAL SQ SCH ×4 (07:44→21:48)
[2019-11-19] MEDS ORDERED: *HR* Propofol 200 MG/20 ML VIAL IVP ONE (07:49)
[2019-11-19] MEDS ORDERED: Lidocaine -MPF 2% 2 ML VIAL ONE (07:49)
[2019-11-19] MEDS: Lactulose Oral Soln 20 GM/30 ML UDC PO SCH ×2 (09:30→21:46)
[2019-11-19] MEDS: carvediloL 6.25 MG TABLET PO SCH ×2 (09:30→16:42)
[2019-11-19] MEDS: Furosemide 40 MG/4 ML VIAL IVP SCH ×2 (09:31→21:46)
[2019-11-19] MEDS: cefTRIAXone 1,000 MG in Water for inj. (sterile) 10 ML IVP SCH (09:31)
[2019-11-19] MEDS: Metoprolol XL (24 HR) Succ 25 MG TAB.ER.24H PO SCH (11:02)
[2019-11-19 13:47] LABS: Creatinine,Urine 67 mg/dL; Microalbum/Creatinine Ratio,Ur 752 mcg/mg (Less than 30); Microalbumin,Urine 504 mg/L; Protein/Creatinine Ratio,Urine 1.61 mg/mg (0.00-0.20); Sodium, Urine < 10.0 mEq/L
[2019-11-19] MEDS ORDERED: *HR* Heparin 5,000 UNIT/ML VIAL ONE (15:35)
[2019-11-19] MEDS: Preparation H Ointment 57 GM TUBE RC SCH ×2 (17:54→21:47)
[2019-11-19] MEDS: Ondansetron 4 MG/2 ML VIAL IVP PRN (18:23)
[2019-11-19] MEDS ORDERED: *HR* HYDROcodone/Acet 5/325 mg TABLET PO ONE (18:57)
[2019-11-20] MEDS: Ipratropium/Albuterol Neb 3 ML IH SCH ×5 (03:46→19:48)
[2019-11-20 05:11] LABS: Hematocrit 21.3 % (37.5-50.1); Mean Corpuscular HGB Conc 32.9 g/dL (31.6-35.5); Mean Corpuscular Hemoglobin 29.9 pg (28.0-33.3); Mean Platelet Volume 10.8 fL (9.4-12.4); Platelet Count 122 K/mcL (140-400); Red Blood Count 2.34 M/mcL (4.19-5.50); Red Cell Distribution Width 15.9 % (11.5-14.5)
[2019-11-20 05:30] LABS: Calcium 8.9 mg/dL (8.6-10.3); Potassium 4.5 mEq/L (3.5-5.1)
[2019-11-20] MEDS: Pantoprazole 40 MG VIAL IVP SCH (06:19)
[2019-11-20] MEDS: Insulin LISPRO 300 UNITS/3 ML VIAL SQ SCH ×4 (07:18→20:50)
[2019-11-20] MEDS: Furosemide 40 MG/4 ML VIAL IVP SCH ×2 (07:57→20:46)
[2019-11-20] MEDS: Lactulose Oral Soln 20 GM/30 ML UDC PO SCH ×2 (07:57→20:45)
[2019-11-20] MEDS ORDERED: 0.9 % Sodium Chloride 250 ML IVC PRN (08:27)
[2019-11-20] MEDS ORDERED: *HR* Heparin 10,000 UNIT/10 ML VIAL IV PRN (08:27)
[2019-11-20] MEDS ORDERED: 0.9 % Sodium Chloride 1,000 ML PRIME SCH (08:30)
[2019-11-20] MEDS: Preparation H Ointment 57 GM TUBE RC SCH ×2 (13:47→20:46)
[2019-11-20] MEDS: carvediloL 6.25 MG TABLET PO SCH ×2 (13:47→17:19)
[2019-11-21] MEDS: Ipratropium/Albuterol Neb 3 ML IH SCH ×7 (00:14→23:48)
[2019-11-21] MEDS ORDERED: *HR* OxyCODONE Immed Rel 5 MG TABLET PO PRN (01:06)
[2019-11-21] MEDS ORDERED: Acetaminophen 325 MG TABLET PO PRN (01:06)
[2019-11-21] MEDS: Insulin LISPRO 300 UNITS/3 ML VIAL SQ SCH ×5 (07:43→21:45)
[2019-11-21 08:49] LABS: Basophils % 0.3 %; Eosinophils # 0.3 K/mcL (0.0-0.6); Eosinophils % 4.5 %; Hematocrit 24.7 % (37.5-50.1); Hemoglobin 7.8 g/dL (12.9-16.9); Immature Granulocytes % 0.3 % (0-4); Lymphocytes # 0.4 K/mcL (0.6-4.6); Lymphocytes % 6.1 %; Mean Corpuscular HGB Conc 31.6 g/dL (31.6-35.5); Mean Corpuscular Hemoglobin 29.2 pg (28.0-33.3); Mean Corpuscular Volume 92.5 fL (83.0-100.0); Mean Platelet Volume 11.1 fL (9.4-12.4); Monocytes # 0.8 K/mcL (0.0-1.3); Monocytes % 14.1 %; Neutrophils # 4.3 K/mcL (1.6-8.9); Platelet Count 147 K/mcL (140-400); Red Blood Count 2.67 M/mcL (4.19-5.50); Segmented Neutrophils % 74.7 %; White Blood Count 5.7 K/mcL (4.3-11.1)
[2019-11-21 09:05] LABS: Potassium 4.5 mEq/L (3.5-5.1)
[2019-11-21] MEDS: carvediloL 6.25 MG TABLET PO SCH ×2 (09:05→16:31)
[2019-11-21] MEDS: Lactulose Oral Soln 20 GM/30 ML UDC PO SCH ×2 (09:06→21:42)
[2019-11-21] MEDS: Preparation H Ointment 57 GM TUBE RC SCH ×2 (09:06→21:47)
[2019-11-21] MEDS: Furosemide 40 MG/4 ML VIAL IVP SCH ×2 (09:06→21:45)
[2019-11-21] MEDS: polyethylene glycoL 3350 17 GM POWD.PACK PO PRN (16:43)
[2019-11-22] MEDS: Ipratropium/Albuterol Neb 3 ML IH SCH ×5 (04:09→20:06)
[2019-11-22 04:34] LABS: Basophils % 0.4 %; Eosinophils # 0.3 K/mcL (0.0-0.6); Eosinophils % 5.4 %; Hematocrit 24.4 % (37.5-50.1); Hemoglobin 7.6 g/dL (12.9-16.9); Immature Granulocytes % 0.2 % (0-4); Lymphocytes # 0.4 K/mcL (0.6-4.6); Mean Corpuscular HGB Conc 31.1 g/dL (31.6-35.5); Mean Corpuscular Hemoglobin 28.9 pg (28.0-33.3); Mean Corpuscular Volume 92.8 fL (83.0-100.0); Mean Platelet Volume 11.6 fL (9.4-12.4); Monocytes # 0.8 K/mcL (0.0-1.3); Monocytes % 13.9 %; Neutrophils # 4.1 K/mcL (1.6-8.9); Platelet Count 158 K/mcL (140-400); Red Blood Count 2.63 M/mcL (4.19-5.50); Red Cell Distribution Width 15.9 % (11.5-14.5); Segmented Neutrophils % 73.1 %; White Blood Count 5.6 K/mcL (4.3-11.1)
[2019-11-22 04:51] LABS: Calcium 8.8 mg/dL (8.6-10.3); Potassium 4.7 mEq/L (3.5-5.1)
[2019-11-22] MEDS ORDERED: *HR* Heparin 10,000 UNIT/10 ML VIAL IV PRN (08:58)
[2019-11-22] MEDS ORDERED: 0.9 % Sodium Chloride 250 ML IVC PRN (08:58)
[2019-11-22] MEDS: Insulin LISPRO 300 UNITS/3 ML VIAL SQ SCH ×4 (09:35→21:10)
[2019-11-22] MEDS: Lactulose Oral Soln 20 GM/30 ML UDC PO SCH ×2 (09:36→21:09)
[2019-11-22] MEDS: carvediloL 6.25 MG TABLET PO SCH ×2 (09:36→17:09)
[2019-11-22] MEDS: Preparation H Ointment 57 GM TUBE RC SCH ×2 (09:36→21:10)
[2019-11-22] MEDS: Furosemide 40 MG/4 ML VIAL IVP SCH ×2 (09:47→21:09)
[2019-11-22] MEDS: Ondansetron 4 MG/2 ML VIAL IVP PRN (16:28)
[2019-11-23] MEDS: Ipratropium/Albuterol Neb 3 ML IH SCH ×7 (00:10→23:06)
[2019-11-23 03:09] LABS: Hematocrit 23.8 % (37.5-50.1); Hemoglobin 7.5 g/dL (12.9-16.9); Mean Corpuscular HGB Conc 31.5 g/dL (31.6-35.5); Mean Corpuscular Hemoglobin 29.6 pg (28.0-33.3); Mean Corpuscular Volume 94.1 fL (83.0-100.0); Mean Platelet Volume 10.2 fL (9.4-12.4); Platelet Count 136 K/mcL (140-400); Red Blood Count 2.53 M/mcL (4.19-5.50); White Blood Count 5.6 K/mcL (4.3-11.1)
[2019-11-23 03:29] LABS: Potassium 4.4 mEq/L (3.5-5.1)
[2019-11-23] MEDS ORDERED: *HR* Heparin 10,000 UNIT/10 ML VIAL IV PRN (07:49)
[2019-11-23] MEDS ORDERED: 0.9 % Sodium Chloride 250 ML IVC PRN (07:49)
[2019-11-23] MEDS ORDERED: 0.9 % Sodium Chloride 1,000 ML PRIME SCH (08:00)
[2019-11-23] MEDS: Insulin LISPRO 300 UNITS/3 ML VIAL SQ SCH ×4 (08:01→21:20)
[2019-11-23] MEDS: Furosemide 20 MG TABLET PO SCH (08:07)
[2019-11-23] MEDS: Preparation H Ointment 57 GM TUBE RC SCH ×2 (08:08→21:21)
[2019-11-23] MEDS: carvediloL 6.25 MG TABLET PO SCH ×2 (08:08→16:52)
[2019-11-23] MEDS ORDERED: Lidocaine/EPI 1:100k 1% 50 ML VIAL ONE (08:28)
[2019-11-23] MEDS ORDERED: Heparin 1,000 UNITS/500 mL 500 ML ONE (08:28)
[2019-11-23 11:48] LABS: Hepatitis B Surface Antigen Nonreactive (Nonreactive)
[2019-11-23 12:17] LABS: Hepatitis B Core IgM Nonreactive (Nonreactive)
[2019-11-23] MEDS ORDERED: 0.9 % Sodium Chloride 500 ML ONE (14:20)
[2019-11-23] MEDS ORDERED: *HR* Midazolam HCl 2 MG/2 ML VIAL IVP ONE (14:22)
[2019-11-23] MEDS ORDERED: *HR* FentaNYL (PF) 100 MCG/2 ML VIAL IVP ONE (14:22)
[2019-11-23] MEDS ORDERED: *HR* FentaNYL (PF) 100 MCG/2 ML VIAL ONE (14:22)
[2019-11-23] MEDS ORDERED: *HR* Midazolam HCl 2 MG/2 ML VIAL ONE (14:23)
[2019-11-23] MEDS ORDERED: CeFAZolin 2,000 MG/50 ML BAG IVPB ONE ×2 (14:26→14:45)
[2019-11-23] MEDS ORDERED: *HR* Heparin 5,000 UNIT/ML VIAL ONE (14:37)
[2019-11-23] MEDS: Lactulose Oral Soln 20 GM/30 ML UDC PO SCH ×2 (16:20→21:20)
[2019-11-23] MEDS: Apixaban 5 MG TABLET PO SCH (21:20)
[2019-11-24] MEDS: Ipratropium/Albuterol Neb 3 ML IH SCH ×3 (04:26→11:09)
[2019-11-24] MEDS ORDERED: 0.9 % Sodium Chloride 250 ML IVC PRN (07:20)
[2019-11-24] MEDS ORDERED: *HR* Heparin 10,000 UNIT/10 ML VIAL IV PRN (07:20)
[2019-11-24] MEDS: Lactulose Oral Soln 20 GM/30 ML UDC PO SCH (07:33)
[2019-11-24] MEDS: carvediloL 6.25 MG TABLET PO SCH (07:34)
[2019-11-24] MEDS: Apixaban 5 MG TABLET PO SCH (07:34)
[2019-11-24] MEDS: Furosemide 20 MG TABLET PO SCH (07:35)
[2019-11-24] MEDS: Insulin LISPRO 300 UNITS/3 ML VIAL SQ SCH ×2 (07:36→11:34)
[2019-11-24 07:51] LABS: Hematocrit 25.9 % (37.5-50.1); Hemoglobin 8.2 g/dL (12.9-16.9); Mean Corpuscular HGB Conc 31.7 g/dL (31.6-35.5); Mean Corpuscular Hemoglobin 29.8 pg (28.0-33.3); Mean Corpuscular Volume 94.2 fL (83.0-100.0); Platelet Count 143 K/mcL (140-400); Red Blood Count 2.75 M/mcL (4.19-5.50); Red Cell Distribution Width 15.9 % (11.5-14.5); White Blood Count 5.8 K/mcL (4.3-11.1)
[2019-11-24 08:11] LABS: Calcium 9.3 mg/dL (8.6-10.3); Potassium 4.6 mEq/L (3.5-5.1)
[2019-11-24] MEDS: Preparation H Ointment 57 GM TUBE RC SCH (11:35)
[2019-11-24 12:34] VITALS: BP 121/64
== END 2019-11-24 13:06 | DRG 194 ==
LOC: EMEROOARM 11:49 → 2ANU 11:49 → SUATTDRO 17:34 → 2ANU 18:02 → SUATTDRO 11-18 10:58
PROVIDERS: ADMIT Pharmacist; ATTEND Family Medicine
PROC: IRPERMA (2019-11-23 12:00)

== ENCOUNTER 2019-11-27 08:34 | Inpatient (IN) ==
[2019-11-27 09:27] LABS: Basophils % 0.2 %; Eosinophils # 0.2 K/mcL (0.0-0.6); Hemoglobin 7.6 g/dL (12.9-16.9); Immature Granulocytes % 0.2 % (0-4); Lymphocytes # 0.5 K/mcL (0.6-4.6); Lymphocytes % 8.6 %; Mean Corpuscular HGB Conc 31.7 g/dL (31.6-35.5); Mean Corpuscular Volume 94.9 fL (83.0-100.0); Monocytes # 0.8 K/mcL (0.0-1.3); Monocytes % 13.3 %; Neutrophils # 4.4 K/mcL (1.6-8.9); Platelet Count 142 K/mcL (140-400); Red Blood Count 2.53 M/mcL (4.19-5.50); Red Cell Distribution Width 15.2 % (11.5-14.5); Segmented Neutrophils % 73.7 %
[2019-11-27] MEDS ORDERED: Azithromycin 500 MG in 0.9 % Sodium Chloride 250 ML IVPB ONE (09:35)
[2019-11-27] MEDS ORDERED: cefTRIAXone 1,000 MG in Water for inj. (sterile) 10 ML IVP ONE (09:36)
[2019-11-27 09:53] LABS: Albumin 3.9 g/dL (3.5-5.7); Albumin/Globulin Ratio 1.5 (1.1-2.2); Bilirubin,Direct 0.2 mg/dL (0.0-0.2); Bilirubin,Indirect 0.4 mg/dL (0.0-1.0); Bilirubin,Total 0.6 mg/dL (0.3-1.0); Calcium 8.8 mg/dL (8.6-10.3); Globulin 2.6 g/dL (2.4-3.5); Potassium 3.4 mEq/L (3.5-5.1); Total Protein 6.5 g/dL (6.4-8.9)
[2019-11-27 09:56] LABS: Troponin I 0.08 ng/mL (< 0.04)
[2019-11-27] MEDS ORDERED: Furosemide 40 MG in 0.9 % Sodium Chloride 50 ML IV STA (10:49)
[2019-11-27] MEDS ORDERED: Furosemide 40 MG/4 ML VIAL IVP ONE (11:03)
[2019-11-27] MEDS ORDERED: Isovue-370 500 ML BOTTLE IVP ONE (11:06)
[2019-11-27] MEDS ORDERED: Perflutren Lipid Microsphere 1.3 ML in 0.9 % Sodium Chloride 8.7 ML IVP ONE ×2 (12:56→14:30)
[2019-11-27] MEDS ORDERED: *HR* Heparin 5,000 UNIT/ML VIAL IVP ONE (13:02)
[2019-11-27] MEDS ORDERED: *HR* Heparin 5,000 UNIT/ML VIAL IVP PRN ×2 (13:02)
[2019-11-27] MEDS ORDERED: Heparin 25,000 UNIT/250 ML D5W 25,000 UNIT/250 ML IV.SOLN IVC SCH (13:15)
[2019-11-27 16:11] LABS: INR 2.3; Prothrombin Time 26.4 Seconds (9.4-12.1)
[2019-11-27 16:16] LABS: Heparin anti-factor XA UFH > 2.00 IU/mL (0.30-0.70)
[2019-11-27] MEDS ORDERED: Fluticasone Propionate Nasal 50 MCG/SPRAY BOTTLE NS PRN (17:57)
[2019-11-27] MEDS ORDERED: Simethicone 80 MG TAB.CHEW PO PRN (17:57)
[2019-11-27] MEDS ORDERED: polyethylene glycoL 3350 17 GM POWD.PACK PO PRN (17:57)
[2019-11-27] MEDS ORDERED: *HR* OxyCODONE Immed Rel 5 MG TABLET PO PRN (17:57)
[2019-11-27] MEDS ORDERED: Ipratropium/Albuterol Neb 3 ML IH PRN (17:57)
[2019-11-27] MEDS ORDERED: *HR* HYDROcodone/Acet 5/325 mg TABLET PO SCH (18:00)
[2019-11-27] MEDS ORDERED: Naloxone 0.4 MG/ML INJ IVP PRN (18:01)
[2019-11-27 18:32] LABS: Hematocrit 26.5 % (37.5-50.1)
[2019-11-27 20:19] VITALS: BP 86/62
[2019-11-27] MEDS ORDERED: Lactulose Oral Soln 20 GM/30 ML UDC PO SCH (21:00)
[2019-11-27] MEDS ORDERED: Gabapentin 100 MG CAPSULE PO SCH (21:00)
[2019-11-27] MEDS ORDERED: Insulin LISPRO 300 UNITS/3 ML VIAL SQ SCH (21:00)
[2019-11-27] MEDS ORDERED: Melatonin 3 MG TABLET PO SCH (21:00)
[2019-11-28] MEDS ORDERED: Pantoprazole 40 MG VIAL IVP SCH (06:00)
[2019-11-28] MEDS ORDERED: Insulin LISPRO 300 UNITS/3 ML VIAL SQ SCH (08:00)
[2019-11-28] MEDS ORDERED: carvediloL 6.25 MG TABLET PO SCH (08:00)
[2019-11-28] MEDS ORDERED: Loratadine 10 MG TABLET PO SCH (09:00)
[2019-11-28] MEDS ORDERED: cefTRIAXone 1,000 MG in Water for inj. (sterile) 10 ML IVP SCH (09:00)
[2019-11-28] MEDS ORDERED: Azithromycin 500 MG in 0.9 % Sodium Chloride 250 ML IVPB SCH (09:00)
[2019-11-28] MEDS ORDERED: Furosemide 20 MG TABLET PO SCH (09:00)
[2019-11-28] MEDS ORDERED: Thiamine (B-1) 100 MG TABLET PO SCH (09:00)
[2019-11-28] MEDS ORDERED: Folic Acid 1 MG TABLET PO SCH (09:00)
[2019-11-28] MEDS ORDERED: Multivit/Ca/Min/Fe/FA 1 TAB TABLET PO SCH (09:00)
[2019-11-28] MEDS ORDERED: Tiotropium 18 MCG inhalation IH SCH (10:00)
== END 2019-11-27 19:40 | disposition short-term general hospital (02) | DRG 134 ==
LOC: 2NNU 08:34 → EMEROOARM 08:34 → 2NNU 18:00
PROVIDERS: ADMIT Internal Medicine; ATTEND Student in an Organized Health Care Education/Training Program

== ENCOUNTER 2019-12-08 05:21 | Observation (INO) ==
[2019-12-08 07:07] LABS: Basophils # 0.1 K/mcL (0.0-0.2); Basophils % 0.6 %; Eosinophils # 0.1 K/mcL (0.0-0.6); Eosinophils % 1.4 %; Hemoglobin 7.6 g/dL (12.9-16.9); Immature Platelets 4.6 % (1.1-6.1); Lymphocytes # 0.7 K/mcL (0.6-4.6); Lymphocytes % 8.5 %; Mean Corpuscular HGB Conc 30.4 g/dL (31.6-35.5); Mean Corpuscular Hemoglobin 29.6 pg (28.0-33.3); Mean Corpuscular Volume 97.3 fL (83.0-100.0); Mean Platelet Volume 10.8 fL (9.4-12.4); Monocytes % 11.2 %; Neutrophils # 6.7 K/mcL (1.6-8.9); Platelet Count 122 K/mcL (140-400); Red Blood Count 2.57 M/mcL (4.19-5.50); Red Cell Distribution Width 15.9 % (11.5-14.5); Segmented Neutrophils % 77.3 %; White Blood Count 8.7 K/mcL (4.3-11.1)
[2019-12-08 07:09] LABS: INR 3.7; Prothrombin Time 42.6 Seconds (9.4-12.1)
[2019-12-08 07:12] LABS: Activated Partial Thrombo Time 43.1 Seconds (26.0-36.0)
[2019-12-08 07:12] LABS: VBG HCO3 28 mEq/L (21-27); VBG PCO2 53 mmHg (41-51); VBG PH 7.33 pH Units (7.32-7.42); VBG PO2 94 mmHg (25-50)
[2019-12-08 07:34] LABS: Albumin 3.8 g/dL (3.5-5.7); Albumin/Globulin Ratio 1.5 (1.1-2.2); Bilirubin,Direct 0.1 mg/dL (0.0-0.2); Bilirubin,Indirect 0.4 mg/dL (0.0-1.0); Bilirubin,Total 0.5 mg/dL (0.3-1.0); Calcium 9.2 mg/dL (8.6-10.3); Globulin 2.6 g/dL (2.4-3.5); Potassium 4.1 mEq/L (3.5-5.1); Total Protein 6.4 g/dL (6.4-8.9); Troponin I 0.35 ng/mL (< 0.04)
[2019-12-08] MEDS ORDERED: Ondansetron ODT 4 MG TAB.RAPDIS SL PRN (09:06)
[2019-12-08] MEDS ORDERED: Naloxone 0.4 MG/ML INJ IVP PRN (09:06)
[2019-12-08] MEDS ORDERED: *HR* Heparin 10,000 UNIT/10 ML VIAL IV PRN (10:54)
[2019-12-08] MEDS ORDERED: 0.9 % Sodium Chloride 250 ML IVC PRN (10:54)
[2019-12-08] MEDS ORDERED: 0.9 % Sodium Chloride 1,000 ML PRIME SCH (11:00)
[2019-12-08 11:22] LABS: Hepatitis B Surface Antibody < 3.10 mIU/mL
[2019-12-08 11:34] LABS: Hepatitis B Surface Antigen Nonreactive (Nonreactive)
[2019-12-08] MEDS ORDERED: Fluticasone Propionate Nasal 50 MCG/SPRAY BOTTLE NS PRN (14:43)
[2019-12-08] MEDS ORDERED: polyethylene glycoL 3350 17 GM POWD.PACK PO PRN (14:43)
[2019-12-08] MEDS ORDERED: hydrOXYzine pamoate 25 MG CAPSULE PO PRN (14:45)
[2019-12-08] MEDS ORDERED: *HR* Dextrose 50 % in Water (Vial) 50 ML VIAL IVP PRN (17:06)
[2019-12-08] MEDS ORDERED: D5% in Water 1,000 ML IVC PRN (17:06)
[2019-12-08] MEDS ORDERED: Dextrose Gel 15 GM/37.5 ML TUBE PO PRN ×2 (17:06)
[2019-12-08] MEDS ORDERED: Warfarin perPT PO PRN (18:00)
[2019-12-08 18:01] LABS: Bacteria,Urine Few per hpf (None-Few); Bilirubin,Urine Small (Negative); Blood,Urine Negative (Negative); Clarity,Urine Clear (Clear); Color,Urine Light-Orange (Yellow); Glucose,Urine (UA) Normal (Normal); Hyaline Casts,Urine Many per lpf (None Seen); Ketones,Urine Negative (Negative); Leukocyte Esterase,Urine Negative (Negative); Mucus,Urine Few per lpf (None-Few); Nitrite,Urine Negative (Negative); Protein,Urine 30 mg/dL (Neg-Trace); RBC,Urine 0-3 per hpf (0-3); Squamous Epithelial Cell,Urine Few per hpf (None-Few); Urobilinogen,Urine Normal (Normal)
[2019-12-08] MEDS: Insulin LISPRO 300 UNITS/3 ML VIAL SQ SCH (19:17)
[2019-12-08] MEDS: Melatonin 3 MG TABLET PO SCH (21:16)
[2019-12-08] MEDS: Gabapentin 100 MG CAPSULE PO SCH (21:16)
[2019-12-08] MEDS: Insulin DETEMIR 100 UNIT/ML X5UNITS SQ SCH (21:16)
[2019-12-09 03:06] LABS: INR 3.6; Prothrombin Time 41.3 Seconds (9.4-12.1)
[2019-12-09 03:15] LABS: Calcium 8.9 mg/dL (8.6-10.3); Potassium 4.4 mEq/L (3.5-5.1)
[2019-12-09] MEDS ORDERED: 0.9 % Sodium Chloride 250 ML IVC PRN (07:19)
[2019-12-09] MEDS ORDERED: *HR* Heparin 10,000 UNIT/10 ML VIAL IV PRN (07:19)
[2019-12-09] MEDS: Tiotropium 18 MCG inhalation IH SCH (07:19)
[2019-12-09] MEDS ORDERED: 0.9 % Sodium Chloride 1,000 ML PRIME SCH (07:30)
[2019-12-09] MEDS: Insulin LISPRO 300 UNITS/3 ML VIAL SQ SCH ×3 (07:47→16:33)
[2019-12-09] MEDS: Gabapentin 100 MG CAPSULE PO SCH ×2 (07:58→21:43)
[2019-12-09] MEDS: hydrOXYzine pamoate 25 MG CAPSULE PO PRN (07:58)
[2019-12-09] MEDS ORDERED: *HR* LORazepam 2 MG/ML VIAL IVP ONE (09:41)
[2019-12-09] MEDS: carvediloL 6.25 MG TABLET PO SCH (12:39)
[2019-12-09] MEDS ORDERED: *HR* Warfarin 1 MG TABLET PO ONE (18:00)
[2019-12-09] MEDS: Melatonin 3 MG TABLET PO SCH (21:43)
[2019-12-09] MEDS: Insulin DETEMIR 100 UNIT/ML X5UNITS SQ SCH (21:45)
[2019-12-10] MEDS: Ipratropium/Albuterol Neb 3 ML IH PRN (04:11)
[2019-12-10 07:11] LABS: INR 2.8; Prothrombin Time 32.2 Seconds (9.4-12.1)
[2019-12-10 07:29] LABS: Calcium 8.4 mg/dL (8.6-10.3); Potassium 3.8 mEq/L (3.5-5.1)
[2019-12-10] MEDS ORDERED: 0.9 % Sodium Chloride 250 ML IVC PRN (08:03)
[2019-12-10] MEDS ORDERED: *HR* Heparin 10,000 UNIT/10 ML VIAL IV PRN (08:03)
[2019-12-10] MEDS: hydrOXYzine pamoate 25 MG CAPSULE PO PRN (08:25)
[2019-12-10] MEDS: Gabapentin 100 MG CAPSULE PO SCH ×2 (08:26→20:52)
[2019-12-10] MEDS: carvediloL 6.25 MG TABLET PO SCH (08:26)
[2019-12-10] MEDS: Insulin LISPRO 300 UNITS/3 ML VIAL SQ SCH ×3 (08:26→18:30)
[2019-12-10] MEDS: *HR* LORazepam 0.5 MG TABLET PO PRN (10:24)
[2019-12-10] MEDS: Tiotropium 18 MCG inhalation IH SCH (11:17)
[2019-12-10] MEDS ORDERED: *HR* Warfarin 5 MG TABLET PO ONE (18:00)
[2019-12-10] MEDS: Melatonin 3 MG TABLET PO SCH (20:52)
[2019-12-10] MEDS: Insulin DETEMIR 100 UNIT/ML X5UNITS SQ SCH (22:22)
[2019-12-11 03:13] LABS: Prothrombin Time 33.7 Seconds (9.4-12.1)
[2019-12-11 03:26] LABS: Basophils # 0.1 K/mcL (0.0-0.2); Basophils % 0.5 %; Calcium 8.9 mg/dL (8.6-10.3); Eosinophils # 0.1 K/mcL (0.0-0.6); Eosinophils % 1.3 %; Hematocrit 26.2 % (37.5-50.1); Hemoglobin 7.9 g/dL (12.9-16.9); Immature Granulocytes % 0.6 % (0-4); Lymphocytes # 0.9 K/mcL (0.6-4.6); Lymphocytes % 8.9 %; Mean Corpuscular HGB Conc 30.2 g/dL (31.6-35.5); Mean Corpuscular Hemoglobin 29.6 pg (28.0-33.3); Mean Corpuscular Volume 98.1 fL (83.0-100.0); Mean Platelet Volume 10.7 fL (9.4-12.4); Monocytes # 0.9 K/mcL (0.0-1.3); Monocytes % 9.5 %; Neutrophils # 7.9 K/mcL (1.6-8.9); Platelet Count 119 K/mcL (140-400); Potassium 4.2 mEq/L (3.5-5.1); Red Blood Count 2.67 M/mcL (4.19-5.50); Red Cell Distribution Width 15.3 % (11.5-14.5); Segmented Neutrophils % 79.2 %; White Blood Count 9.9 K/mcL (4.3-11.1)
[2019-12-11] MEDS ORDERED: 0.9 % Sodium Chloride 250 ML IVC PRN (07:30)
[2019-12-11] MEDS ORDERED: *HR* Heparin 10,000 UNIT/10 ML VIAL IV PRN (07:45)
[2019-12-11] MEDS: Gabapentin 100 MG CAPSULE PO SCH ×2 (08:00→21:27)
[2019-12-11] MEDS ORDERED: Darbepoetin 100 MCG/0.5 ML SYRINGE SQ SCH (08:00)
[2019-12-11] MEDS: *HR* LORazepam 0.5 MG TABLET PO PRN (08:01)
[2019-12-11] MEDS: Insulin LISPRO 300 UNITS/3 ML VIAL SQ SCH ×3 (08:13→17:21)
[2019-12-11] MEDS ORDERED: *HR* LORazepam 2 MG/ML VIAL IVP ONE (09:09)
[2019-12-11] MEDS: Tiotropium 18 MCG inhalation IH SCH (10:11)
[2019-12-11] MEDS: carvediloL 6.25 MG TABLET PO SCH (15:30)
[2019-12-11] MEDS: Lactulose Oral Soln 20 GM/30 ML UDC PO SCH (15:37)
[2019-12-11] MEDS ORDERED: *HR* Warfarin 3 MG TABLET PO ONE (18:00)
[2019-12-11] MEDS: Melatonin 3 MG TABLET PO SCH (21:27)
[2019-12-11] MEDS: Insulin DETEMIR 100 UNIT/ML X5UNITS SQ SCH (21:27)
[2019-12-12] MEDS ORDERED: Acetaminophen IV 1,000 MG/100 ML INFUS..BTL IVPB ONE (03:04)
[2019-12-12 06:23] LABS: Basophils # 0.1 K/mcL (0.0-0.2); Basophils % 0.6 %; Eosinophils # 0.1 K/mcL (0.0-0.6); Eosinophils % 1.1 %; Hematocrit 23.9 % (37.5-50.1); Hemoglobin 7.2 g/dL (12.9-16.9); Immature Granulocytes % 0.5 % (0-4); Lymphocytes # 0.8 K/mcL (0.6-4.6); Lymphocytes % 9.4 %; Mean Corpuscular HGB Conc 30.1 g/dL (31.6-35.5); Mean Corpuscular Hemoglobin 28.6 pg (28.0-33.3); Mean Corpuscular Volume 94.8 fL (83.0-100.0); Mean Platelet Volume 10.6 fL (9.4-12.4); Monocytes # 0.9 K/mcL (0.0-1.3); Monocytes % 10.8 %; Neutrophils # 6.2 K/mcL (1.6-8.9); Platelet Count 128 K/mcL (140-400); Red Blood Count 2.52 M/mcL (4.19-5.50); Red Cell Distribution Width 15.4 % (11.5-14.5); Segmented Neutrophils % 77.6 %
[2019-12-12 06:39] LABS: INR 3.3; Prothrombin Time 37.2 Seconds (9.4-12.1)
[2019-12-12 06:45] LABS: Calcium 8.6 mg/dL (8.6-10.3); Potassium 4.2 mEq/L (3.5-5.1)
[2019-12-12] MEDS ORDERED: *HR* LORazepam 0.5 MG TABLET PO PRN (07:32)
[2019-12-12] MEDS: Insulin LISPRO 300 UNITS/3 ML VIAL SQ SCH ×3 (08:18→17:33)
[2019-12-12] MEDS: carvediloL 6.25 MG TABLET PO SCH (09:31)
[2019-12-12] MEDS: Folic Acid 1 MG TABLET PO SCH (09:32)
[2019-12-12] MEDS: Loratadine 10 MG TABLET PO SCH (09:32)
[2019-12-12] MEDS: Gabapentin 100 MG CAPSULE PO SCH ×2 (09:33→19:32)
[2019-12-12] MEDS: Lactulose Oral Soln 20 GM/30 ML UDC PO SCH ×3 (09:33→17:28)
[2019-12-12] MEDS: Multivit/Ca/Min/Fe/FA 1 TAB TABLET PO SCH (09:33)
[2019-12-12] MEDS: Thiamine (B-1) 100 MG TABLET PO SCH (09:33)
[2019-12-12] MEDS: Tiotropium 18 MCG inhalation IH SCH (10:16)
[2019-12-12] MEDS ORDERED: *HR* Warfarin 1 MG TABLET PO ONE (18:00)
[2019-12-12] MEDS: Melatonin 3 MG TABLET PO SCH (19:32)
[2019-12-12] MEDS: hydrOXYzine pamoate 25 MG CAPSULE PO PRN (19:32)
[2019-12-12] MEDS: Insulin DETEMIR 100 UNIT/ML X5UNITS SQ SCH (21:06)
[2019-12-13 06:54] LABS: Basophils # 0.1 K/mcL (0.0-0.2); Basophils % 0.6 %; Eosinophils # 0.1 K/mcL (0.0-0.6); Eosinophils % 1.6 %; Hematocrit 25.9 % (37.5-50.1); Hemoglobin 7.7 g/dL (12.9-16.9); Immature Granulocytes % 0.6 % (0-4); Lymphocytes # 0.8 K/mcL (0.6-4.6); Lymphocytes % 9.4 %; Mean Corpuscular HGB Conc 29.7 g/dL (31.6-35.5); Mean Corpuscular Hemoglobin 29.1 pg (28.0-33.3); Mean Corpuscular Volume 97.7 fL (83.0-100.0); Mean Platelet Volume 10.4 fL (9.4-12.4); Neutrophils # 6.3 K/mcL (1.6-8.9); Platelet Count 147 K/mcL (140-400); Red Blood Count 2.65 M/mcL (4.19-5.50); Red Cell Distribution Width 15.4 % (11.5-14.5); Segmented Neutrophils % 75.8 %; White Blood Count 8.3 K/mcL (4.3-11.1)
[2019-12-13 06:58] LABS: INR 3.1; Prothrombin Time 35.1 Seconds (9.4-12.1)
[2019-12-13 07:19] LABS: Calcium 8.8 mg/dL (8.6-10.3); Potassium 4.1 mEq/L (3.5-5.1)
[2019-12-13] MEDS ORDERED: 0.9 % Sodium Chloride 250 ML IVC PRN (07:20)
[2019-12-13] MEDS ORDERED: *HR* Heparin 10,000 UNIT/10 ML VIAL IV PRN (07:33)
[2019-12-13] MEDS: Insulin LISPRO 300 UNITS/3 ML VIAL SQ SCH ×3 (08:00→17:31)
[2019-12-13] MEDS: Gabapentin 100 MG CAPSULE PO SCH ×2 (08:00→19:43)
[2019-12-13] MEDS: carvediloL 6.25 MG TABLET PO SCH (08:00)
[2019-12-13] MEDS: Lactulose Oral Soln 20 GM/30 ML UDC PO SCH ×3 (08:00→17:30)
[2019-12-13] MEDS: Loratadine 10 MG TABLET PO SCH (08:01)
[2019-12-13] MEDS: Thiamine (B-1) 100 MG TABLET PO SCH (08:01)
[2019-12-13] MEDS: hydrOXYzine pamoate 25 MG CAPSULE PO PRN (08:01)
[2019-12-13] MEDS: Multivit/Ca/Min/Fe/FA 1 TAB TABLET PO SCH (08:01)
[2019-12-13] MEDS: Folic Acid 1 MG TABLET PO SCH (08:01)
[2019-12-13] MEDS ORDERED: *HR* LORazepam 1 MG TABLET PO ONE (09:07)
[2019-12-13] MEDS: Tiotropium 18 MCG inhalation IH SCH (10:18)
[2019-12-13] MEDS ORDERED: *HR* Warfarin 5 MG TABLET PO ONE (18:00)
[2019-12-13] MEDS: Melatonin 3 MG TABLET PO SCH (19:43)
[2019-12-13] MEDS: Insulin DETEMIR 100 UNIT/ML X5UNITS SQ SCH (19:44)
[2019-12-14 03:02] LABS: Hematocrit 25.7 % (37.5-50.1); Hemoglobin 7.7 g/dL (12.9-16.9); Mean Corpuscular Hemoglobin 28.6 pg (28.0-33.3); Mean Corpuscular Volume 95.5 fL (83.0-100.0); Mean Platelet Volume 10.7 fL (9.4-12.4); Platelet Count 130 K/mcL (140-400); Red Blood Count 2.69 M/mcL (4.19-5.50); Red Cell Distribution Width 15.2 % (11.5-14.5)
[2019-12-14 03:06] LABS: INR 2.9; Prothrombin Time 32.5 Seconds (9.4-12.1)
[2019-12-14 03:24] LABS: Calcium 8.6 mg/dL (8.6-10.3); Potassium 4.3 mEq/L (3.5-5.1)
[2019-12-14] MEDS ORDERED: 0.9 % Sodium Chloride 250 ML IVC PRN (06:58)
[2019-12-14] MEDS: Tiotropium 18 MCG inhalation IH SCH (07:54)
[2019-12-14] MEDS: Insulin LISPRO 300 UNITS/3 ML VIAL SQ SCH ×3 (08:30→16:27)
[2019-12-14] MEDS: Gabapentin 100 MG CAPSULE PO SCH ×2 (08:31→19:46)
[2019-12-14] MEDS: Lactulose Oral Soln 20 GM/30 ML UDC PO SCH ×3 (08:31→16:26)
[2019-12-14] MEDS: Thiamine (B-1) 100 MG TABLET PO SCH (08:32)
[2019-12-14] MEDS: carvediloL 6.25 MG TABLET PO SCH (08:33)
[2019-12-14] MEDS: Loratadine 10 MG TABLET PO SCH (08:33)
[2019-12-14] MEDS: Multivit/Ca/Min/Fe/FA 1 TAB TABLET PO SCH (08:33)
[2019-12-14] MEDS: Folic Acid 1 MG TABLET PO SCH (08:33)
[2019-12-14] MEDS ORDERED: *HR* Warfarin 5 MG TABLET PO ONE (18:00)
[2019-12-14] MEDS: Insulin DETEMIR 100 UNIT/ML X5UNITS SQ SCH (19:45)
[2019-12-14] MEDS: Melatonin 3 MG TABLET PO SCH (19:46)
[2019-12-15 03:07] LABS: Hematocrit 26.2 % (37.5-50.1); Hemoglobin 7.7 g/dL (12.9-16.9); Mean Corpuscular HGB Conc 29.4 g/dL (31.6-35.5); Mean Corpuscular Hemoglobin 28.5 pg (28.0-33.3); Mean Platelet Volume 10.6 fL (9.4-12.4); Platelet Count 135 K/mcL (140-400); Red Cell Distribution Width 15.4 % (11.5-14.5); White Blood Count 9.9 K/mcL (4.3-11.1)
[2019-12-15 03:11] LABS: INR 3.5; Prothrombin Time 39.4 Seconds (9.4-12.1)
[2019-12-15 03:26] LABS: Calcium 8.7 mg/dL (8.6-10.3)
[2019-12-15] MEDS: Lactulose Oral Soln 20 GM/30 ML UDC PO SCH ×3 (07:57→16:43)
[2019-12-15] MEDS: Multivit/Ca/Min/Fe/FA 1 TAB TABLET PO SCH (07:58)
[2019-12-15] MEDS: Gabapentin 100 MG CAPSULE PO SCH ×2 (07:58→19:48)
[2019-12-15] MEDS: Thiamine (B-1) 100 MG TABLET PO SCH (07:58)
[2019-12-15] MEDS: Loratadine 10 MG TABLET PO SCH (07:58)
[2019-12-15] MEDS: Folic Acid 1 MG TABLET PO SCH (07:58)
[2019-12-15] MEDS: carvediloL 6.25 MG TABLET PO SCH (07:58)
[2019-12-15] MEDS: Insulin LISPRO 300 UNITS/3 ML VIAL SQ SCH ×3 (07:59→16:44)
[2019-12-15] MEDS ORDERED: *HR* LORazepam 1 MG TABLET PO PRN (08:39)
[2019-12-15] MEDS: Tiotropium 18 MCG inhalation IH SCH (09:42)
[2019-12-15] MEDS ORDERED: *HR* Warfarin 1 MG TABLET PO ONE (18:00)
[2019-12-15] MEDS: Melatonin 3 MG TABLET PO SCH (19:48)
[2019-12-15] MEDS: Insulin DETEMIR 100 UNIT/ML X5UNITS SQ SCH (19:49)
[2019-12-15] MEDS ORDERED: *HR* OxyCODONE Immed Rel 5 MG TABLET PO PRN (19:57)
[2019-12-15] MEDS ORDERED: Methyl Salicylate/Menthol 57 APPL/57 GM TUBE TP PRN (19:58)
[2019-12-15] MEDS: Ipratropium/Albuterol Neb 3 ML IH PRN (21:32)
[2019-12-16 02:07] LABS: Hemoglobin 7.6 g/dL (12.9-16.9); Mean Corpuscular HGB Conc 30.4 g/dL (31.6-35.5); Mean Corpuscular Volume 95.4 fL (83.0-100.0); Mean Platelet Volume 10.5 fL (9.4-12.4); Platelet Count 137 K/mcL (140-400); Red Blood Count 2.62 M/mcL (4.19-5.50); Red Cell Distribution Width 15.6 % (11.5-14.5); White Blood Count 9.4 K/mcL (4.3-11.1)
[2019-12-16 02:12] LABS: INR 3.2; Prothrombin Time 36.4 Seconds (9.4-12.1)
[2019-12-16 02:28] LABS: Calcium 8.6 mg/dL (8.6-10.3); Potassium 4.4 mEq/L (3.5-5.1)
[2019-12-16] MEDS: Ipratropium/Albuterol Neb 3 ML IH PRN (04:24)
[2019-12-16] MEDS ORDERED: 0.9 % Sodium Chloride 250 ML IVC PRN (07:20)
[2019-12-16] MEDS: Tiotropium 18 MCG inhalation IH SCH (07:46)
[2019-12-16] MEDS: Insulin LISPRO 300 UNITS/3 ML VIAL SQ SCH (08:51)
[2019-12-16] MEDS: hydrOXYzine pamoate 25 MG CAPSULE PO PRN (08:58)
[2019-12-16 16:58] VITALS: BP 101/57
[2019-12-16] MEDS ORDERED: *HR* Warfarin 4 MG TABLET PO SCH (18:00)
== END 2019-12-16 18:05 ==
LOC: EMEROOARM 05:21 → 2ANU 05:21 → SUATTDRO 08:36 → 2ANU 09:43
PROVIDERS: ADMIT Internal Medicine; ATTEND Internal Medicine

== ENCOUNTER 2019-12-18 08:39 | Inpatient (IN) ==
[2019-12-18] MEDS ORDERED: Ipratropium/Albuterol Neb 3 ML IH ONE (08:54)
[2019-12-18 09:35] LABS: Basophils % 0.5 %; Eosinophils # 0.2 K/mcL (0.0-0.6); Eosinophils % 2.8 %; Hematocrit 27.9 % (37.5-50.1); Hemoglobin 8.3 g/dL (12.9-16.9); Immature Granulocytes % 0.3 % (0-4); Lymphocytes # 0.6 K/mcL (0.6-4.6); Lymphocytes % 6.6 %; Mean Corpuscular HGB Conc 29.7 g/dL (31.6-35.5); Mean Corpuscular Hemoglobin 28.4 pg (28.0-33.3); Mean Corpuscular Volume 95.5 fL (83.0-100.0); Mean Platelet Volume 10.2 fL (9.4-12.4); Monocytes % 11.5 %; Neutrophils # 6.8 K/mcL (1.6-8.9); Platelet Count 122 K/mcL (140-400); Red Blood Count 2.92 M/mcL (4.19-5.50); Red Cell Distribution Width 15.5 % (11.5-14.5); Segmented Neutrophils % 78.3 %; White Blood Count 8.7 K/mcL (4.3-11.1)
[2019-12-18 09:41] LABS: INR 1.8; Prothrombin Time 20.3 Seconds (9.4-12.1)
[2019-12-18 09:57] LABS: Albumin 3.9 g/dL (3.5-5.7); Albumin/Globulin Ratio 1.3 (1.1-2.2); Bilirubin,Direct 0.2 mg/dL (0.0-0.2); Bilirubin,Indirect 0.4 mg/dL (0.0-1.0); Bilirubin,Total 0.6 mg/dL (0.3-1.0); Globulin 2.9 g/dL (2.4-3.5); Potassium 3.9 mEq/L (3.5-5.1); Total Protein 6.8 g/dL (6.4-8.9)
[2019-12-18 10:08] LABS: Troponin I 0.04 ng/mL (< 0.04)
[2019-12-18] MEDS ORDERED: Ondansetron 4 MG/2 ML VIAL IVP PRN (11:21)
[2019-12-18] MEDS ORDERED: Naloxone 0.4 MG/ML INJ IVP PRN (11:21)
[2019-12-18] MEDS ORDERED: Ipratropium/Albuterol Neb 3 ML IH PRN (11:24)
[2019-12-18] MEDS ORDERED: *HR* Dextrose 50 % in Water (Vial) 50 ML VIAL IVP PRN (11:25)
[2019-12-18] MEDS ORDERED: *HR* Heparin 5,000 UNIT/ML VIAL IVP ONE (11:25)
[2019-12-18] MEDS ORDERED: *HR* Heparin 5,000 UNIT/ML VIAL IVP PRN ×2 (11:25)
[2019-12-18] MEDS ORDERED: D5% in Water 1,000 ML IVC PRN (11:25)
[2019-12-18] MEDS ORDERED: Dextrose Gel 15 GM/37.5 ML TUBE PO PRN ×2 (11:25)
[2019-12-18] MEDS ORDERED: Heparin 25,000 UNIT/250 ML D5W 25,000 UNIT/250 ML IV.SOLN IVC SCH (11:30)
[2019-12-18] MEDS ORDERED: 0.9 % Sodium Chloride 250 ML IVC PRN ×2 (12:14→12:16)
[2019-12-18] MEDS ORDERED: *HR* Heparin 10,000 UNIT/10 ML VIAL IV PRN (12:16)
[2019-12-18] MEDS ORDERED: 0.9 % Sodium Chloride 1,000 ML PRIME SCH (12:30)
[2019-12-18 13:25] LABS: Folate 19.7 ng/mL (3.0-16.0)
[2019-12-18] MEDS ORDERED: *HR* LORazepam 1 MG TABLET PO ONE (13:31)
[2019-12-18] MEDS: Insulin LISPRO 300 UNITS/3 ML VIAL SQ SCH ×2 (14:11→18:11)
[2019-12-18 14:38] LABS: Immature Reticulocyte % 19.3 % (11.0-38.0); Retculocyte # 0.08 M/mcL (0.05-0.10); Reticulocyte % 2.6 % (1.6-2.8)
[2019-12-18] MEDS: Lactulose Oral Soln 20 GM/30 ML UDC PO SCH ×2 (15:01→18:04)
[2019-12-18] MEDS: hydrOXYzine pamoate 25 MG CAPSULE PO PRN (16:05)
[2019-12-18] MEDS ORDERED: *HR* Midazolam HCl 5 MG/5 ML VIAL IVP ONE (17:51)
[2019-12-18] MEDS ORDERED: *HR* Warfarin 3 MG TABLET PO SCH (18:00)
[2019-12-18] MEDS: FentaNYL (PF) 1,000 MCG/100 ML IV.SOLN IVC SCH (18:13)
[2019-12-18] MEDS: Midazolam HCl 50 MG/100 ML IV.SOLN IVC SCH (18:14)
[2019-12-18] MEDS ORDERED: Artificial Tears SOLN 15 ML BOTTLE BOTH EYES PRN (18:24)
[2019-12-18] MEDS ORDERED: Vancomycin 2,000 MG/520 ML IV.SOLN IVPB ONE (19:00)
[2019-12-18 19:26] LABS: Adenovirus Not Detected (Not Detect); Bordetella Pertussis Not Detected (Not Detect); Chlamydophila pneumoniae Not Detected (Not Detect); Coronavirus 229E Not Detected (Not Detect); Coronavirus HKU1 Not Detected (Not Detect); Coronavirus NL63 Not Detected (Not Detect); Coronavirus OC43 Not Detected (Not Detect); Human Metapneumovirus Not Detected (Not Detect); Human Rhinovirus/Enterovirus Not Detected (Not Detect); Influenza A Subtype 2009 H1 Not Detected (Not Detect); Influenza B Not Detected (Not Detect); Mycoplasma pneumoniae Not Detected (Not Detect); Parainfluenza Virus 1 Not Detected (Not Detect); Parainfluenza Virus 2 Not Detected (Not Detect); Parainfluenza Virus 3 Not Detected (Not Detect); Parainfluenza Virus 4 Not Detected (Not Detect); Respiratory Syncytial Virus Not Detected (Not Detect)
[2019-12-18 19:41] LABS: ABG Base Excess 5 mEq/L (-2 to 3); ABG HCO3 32 mEq/L (21-27); ABG Oxygen Saturation 100 % (95-98); ABG PCO2 63 mmHg (35-45); ABG PH 7.31 pH Units (7.32-7.45); ABG PO2 510 mmHg (85-104); ABG TCO2 34 mEq/L (20-26); Blood Gas Modality ASSIST CONTROL; Blood Gas VT 500 cc
[2019-12-18 19:53] LABS: Basophils # 0.1 K/mcL (0.0-0.2); Basophils % 0.3 %; Eosinophils # 0.2 K/mcL (0.0-0.6); Hematocrit 26.2 % (37.5-50.1); Hemoglobin 7.9 g/dL (12.9-16.9); Immature Granulocytes % 0.4 % (0-4); Lymphocytes # 0.4 K/mcL (0.6-4.6); Lymphocytes % 2.6 %; Mean Corpuscular HGB Conc 30.2 g/dL (31.6-35.5); Mean Corpuscular Volume 96.3 fL (83.0-100.0); Mean Platelet Volume 10.7 fL (9.4-12.4); Monocytes # 0.9 K/mcL (0.0-1.3); Neutrophils # 13.7 K/mcL (1.6-8.9); Platelet Count 108 K/mcL (140-400); Red Blood Count 2.72 M/mcL (4.19-5.50); Red Cell Distribution Width 15.4 % (11.5-14.5); Segmented Neutrophils % 89.7 %
[2019-12-18 19:54] LABS: White Blood Count 15.3 K/mcL (4.3-11.1)
[2019-12-18 19:59] LABS: VBG Ionized Calcium 1.01 mmol/L (1.15-1.35)
[2019-12-18 20:18] LABS: Albumin 3.7 g/dL (3.5-5.7); Albumin/Globulin Ratio 1.3 (1.1-2.2); Bilirubin,Direct 0.2 mg/dL (0.0-0.2); Bilirubin,Indirect 0.5 mg/dL (0.0-1.0); Bilirubin,Total 0.7 mg/dL (0.3-1.0); Calcium 8.9 mg/dL (8.6-10.3); Globulin 2.9 g/dL (2.4-3.5); Magnesium 1.9 mg/dL (1.6-2.6); Phosphorous 3.6 mg/dL (2.7-4.5); Potassium 4.2 mEq/L (3.5-5.1); Total Protein 6.6 g/dL (6.4-8.9)
[2019-12-18] MEDS: Azithromycin 500 MG in 0.9 % Sodium Chloride 250 ML IVPB SCH (21:04)
[2019-12-18] MEDS: Pantoprazole 40 MG VIAL IVP SCH (21:04)
[2019-12-18] MEDS: Chlorhexidine Rinse 15 ML MOUTHWASH MM SCH (21:04)
[2019-12-18] MEDS: Artificial Tears SOLN 15 ML BOTTLE BOTH EYES SCH ×2 (21:29→23:44)
[2019-12-19] MEDS: Norepinephrine 4 MG/254 ML IV.SOLN IVC SCH ×2 (00:02→23:55)
[2019-12-19 00:14] LABS: Hematocrit 25.2 % (37.5-50.1); Hemoglobin 7.4 g/dL (12.9-16.9)
[2019-12-19] MEDS: Artificial Tears SOLN 15 ML BOTTLE BOTH EYES SCH ×5 (03:48→20:37)
[2019-12-19] MEDS: FentaNYL (PF) 1,000 MCG/100 ML IV.SOLN IVC SCH (04:35)
[2019-12-19 04:47] LABS: ABG Base Excess 3 mEq/L (-2 to 3); ABG HCO3 28 mEq/L (21-27); ABG Oxygen Saturation 98 % (95-98); ABG PCO2 44 mmHg (35-45); ABG PH 7.41 pH Units (7.32-7.45); ABG PO2 110 mmHg (85-104); ABG TCO2 30 mEq/L (20-26); Blood Gas VT 500 cc
[2019-12-19 05:06] LABS: Hemoglobin 7.2 g/dL (12.9-16.9); Red Cell Distribution Width 15.4 % (11.5-14.5)
[2019-12-19 05:08] LABS: Hematocrit 23.6 % (37.5-50.1); Immature Platelets 6.4 % (1.1-6.1); Mean Corpuscular HGB Conc 30.5 g/dL (31.6-35.5); Mean Corpuscular Volume 95.2 fL (83.0-100.0); Red Blood Count 2.48 M/mcL (4.19-5.50); White Blood Count 8.9 K/mcL (4.3-11.1)
[2019-12-19 05:09] LABS: INR 1.8; Prothrombin Time 20.4 Seconds (9.4-12.1)
[2019-12-19 05:11] LABS: Activated Partial Thrombo Time 35.9 Seconds (26.0-36.0)
[2019-12-19 05:23] LABS: Albumin 3.4 g/dL (3.5-5.7); Calcium 8.6 mg/dL (8.6-10.3); Calcium 8.8 mg/dL (8.6-10.3); Magnesium 1.9 mg/dL (1.6-2.6); Phosphorous 3.7 mg/dL (2.7-4.5); Potassium 4.3 mEq/L (3.5-5.1)
[2019-12-19] MEDS: Piperacillin/Tazobactam 3.375 GM in 0.9 % Sodium Chloride Mini Bag 100 ML IVPB SCH ×2 (06:12→17:35)
[2019-12-19] MEDS: Pantoprazole 40 MG VIAL IVP SCH ×2 (06:13→17:35)
[2019-12-19] MEDS ORDERED: Perflutren Lipid Microsphere 1.3 ML in 0.9 % Sodium Chloride 8.7 ML IVP PRN (07:28)
[2019-12-19] MEDS: Lactulose Oral Soln 20 GM/30 ML UDC PO SCH ×3 (07:44→17:35)
[2019-12-19] MEDS: Folic Acid 1 MG TABLET PO SCH (07:44)
[2019-12-19] MEDS: Insulin LISPRO 300 UNITS/3 ML VIAL SQ SCH ×3 (07:56→15:55)
[2019-12-19] MEDS: Chlorhexidine Rinse 15 ML MOUTHWASH MM SCH ×2 (07:56→20:37)
[2019-12-19] MEDS ORDERED: Ferumoxytol 510 MG in 0.9 % Sodium Chloride 100 ML IVPB ONE (10:56)
[2019-12-19] MEDS: *HR* HYDROcodone/Acet 5/325 mg TABLET PO PRN ×2 (15:51→21:02)
[2019-12-19] MEDS ORDERED: Vancomycin 1,500 MG/265 ML IV.SOLN IVPB ONE (16:00)
[2019-12-19] MEDS ORDERED: *HR* Heparin 5,000 UNIT/ML VIAL IVP PRN ×2 (16:23)
[2019-12-19] MEDS: Heparin 25,000 UNIT/250 ML D5W 25,000 UNIT/250 ML IV.SOLN IVC SCH (17:35)
[2019-12-19] MEDS ORDERED: *HR* EPINEPHrine 1 MG/10 ML SYRINGE IVP ONE (17:53)
[2019-12-19 18:18] LABS: Hematocrit 25.1 % (37.5-50.1); Hemoglobin 7.6 g/dL (12.9-16.9)
[2019-12-19 18:21] LABS: INR 1.9; Prothrombin Time 21.1 Seconds (9.4-12.1)
[2019-12-19] MEDS: Midazolam HCl 50 MG/100 ML IV.SOLN IVC SCH (18:49)
[2019-12-19] MEDS: Azithromycin 500 MG in 0.9 % Sodium Chloride 250 ML IVPB SCH (18:51)
[2019-12-19] MEDS: hydrOXYzine pamoate 25 MG CAPSULE PO PRN (21:45)
[2019-12-19] MEDS ORDERED: *HR* Heparin 5,000 UNIT/ML VIAL SQ SCH (22:00)
[2019-12-20 03:09] LABS: Basophils % 0.5 %; Eosinophils # 0.3 K/mcL (0.0-0.6); Eosinophils % 3.4 %; Hematocrit 23.6 % (37.5-50.1); Hemoglobin 7.1 g/dL (12.9-16.9); Immature Granulocytes % 0.4 % (0-4); Lymphocytes # 0.9 K/mcL (0.6-4.6); Lymphocytes % 10.6 %; Mean Corpuscular HGB Conc 30.1 g/dL (31.6-35.5); Mean Corpuscular Hemoglobin 28.7 pg (28.0-33.3); Mean Corpuscular Volume 95.5 fL (83.0-100.0); Mean Platelet Volume 10.5 fL (9.4-12.4); Monocytes % 12.5 %; Platelet Count 109 K/mcL (140-400); Red Blood Count 2.47 M/mcL (4.19-5.50); Red Cell Distribution Width 15.1 % (11.5-14.5); Segmented Neutrophils % 72.6 %; White Blood Count 8.3 K/mcL (4.3-11.1)
[2019-12-20 03:31] LABS: Calcium 8.4 mg/dL (8.6-10.3); Potassium 3.9 mEq/L (3.5-5.1)
[2019-12-20] MEDS: Piperacillin/Tazobactam 3.375 GM in 0.9 % Sodium Chloride Mini Bag 100 ML IVPB SCH (05:14)
[2019-12-20] MEDS: Pantoprazole 40 MG VIAL IVP SCH ×2 (05:14→17:28)
[2019-12-20] MEDS: Heparin 25,000 UNIT/250 ML D5W 25,000 UNIT/250 ML IV.SOLN IVC SCH ×2 (06:20→15:35)
[2019-12-20] MEDS: Insulin LISPRO 300 UNITS/3 ML VIAL SQ SCH ×3 (07:30→16:54)
[2019-12-20] MEDS ORDERED: 0.9 % Sodium Chloride 250 ML IVC PRN ×2 (07:46→12:49)
[2019-12-20] MEDS ORDERED: *HR* Heparin 10,000 UNIT/10 ML VIAL IV PRN ×2 (07:46→12:49)
[2019-12-20] MEDS: *HR* HYDROcodone/Acet 5/325 mg TABLET PO PRN ×2 (08:00→17:36)
[2019-12-20] MEDS: Lactulose Oral Soln 20 GM/30 ML UDC PO SCH ×3 (08:01→17:32)
[2019-12-20] MEDS: Folic Acid 1 MG TABLET PO SCH (08:01)
[2019-12-20 10:56] LABS: Magnesium 1.9 mg/dL (1.6-2.6)
[2019-12-20 10:58] LABS: Troponin I 0.13 ng/mL (< 0.04)
[2019-12-20] MEDS ORDERED: Aminoglycoside Consult 1 EACH MC ONE (11:43)
[2019-12-20] MEDS ORDERED: *HR* Dextrose 50 % in Water (Vial) 50 ML VIAL IVP PRN (12:49)
[2019-12-20] MEDS ORDERED: Artificial Tears SOLN 15 ML BOTTLE BOTH EYES PRN (12:49)
[2019-12-20] MEDS ORDERED: Dextrose Gel 15 GM/37.5 ML TUBE PO PRN ×2 (12:49)
[2019-12-20] MEDS ORDERED: D5% in Water 1,000 ML IVC PRN (12:49)
[2019-12-20] MEDS ORDERED: 0.9 % Sodium Chloride 1,000 ML PRIME SCH (12:49)
[2019-12-20] MEDS ORDERED: Naloxone 0.4 MG/ML INJ IVP PRN (12:49)
[2019-12-20] MEDS ORDERED: *HR* Heparin 5,000 UNIT/ML VIAL IVP PRN ×2 (12:49)
[2019-12-20 18:00] LABS: Hematocrit 23.7 % (37.5-50.1); Hemoglobin 7.1 g/dL (12.9-16.9)
[2019-12-20] MEDS: hydrOXYzine pamoate 25 MG CAPSULE PO PRN (18:31)
[2019-12-21] MEDS: Heparin 25,000 UNIT/250 ML D5W 25,000 UNIT/250 ML IV.SOLN IVC SCH ×2 (01:23→14:58)
[2019-12-21] MEDS: *HR* HYDROcodone/Acet 5/325 mg TABLET PO PRN ×3 (01:35→19:44)
[2019-12-21] MEDS: Pantoprazole 40 MG VIAL IVP SCH ×2 (05:24→18:03)
[2019-12-21 05:48] LABS: Hematocrit 23.8 % (37.5-50.1)
[2019-12-21 07:03] LABS: Hematocrit 22.9 % (37.5-50.1); Hemoglobin 6.9 g/dL (12.9-16.9)
[2019-12-21 07:22] LABS: Calcium 8.3 mg/dL (8.6-10.3); Potassium 4.1 mEq/L (3.5-5.1)
[2019-12-21] MEDS ORDERED: Furosemide 40 MG/4 ML VIAL IVP ONE ×3 (07:25→16:00)
[2019-12-21] MEDS ORDERED: Albumin 25% 25gram/100mL 25 GM/100 ML IV.SOLN IVPB ONE (07:25)
[2019-12-21] MEDS: Insulin LISPRO 300 UNITS/3 ML VIAL SQ SCH ×3 (08:43→16:14)
[2019-12-21] MEDS: Folic Acid 1 MG TABLET PO SCH (10:36)
[2019-12-21] MEDS: Lactulose Oral Soln 20 GM/30 ML UDC PO SCH ×3 (10:36→17:25)
[2019-12-21] MEDS: *HR* OxyCODONE Immed Rel 5 MG TABLET PO PRN (22:50)
[2019-12-22] MEDS: *HR* HYDROcodone/Acet 5/325 mg TABLET PO PRN (02:09)
[2019-12-22] MEDS: Ondansetron 4 MG/2 ML VIAL IVP PRN (03:41)
[2019-12-22] MEDS: hydrOXYzine pamoate 25 MG CAPSULE PO PRN (03:41)
[2019-12-22] MEDS: Acetaminophen 325 MG TABLET PO PRN ×2 (03:41→13:12)
[2019-12-22 03:46] LABS: Hematocrit 23.2 % (37.5-50.1)
[2019-12-22] MEDS: *HR* OxyCODONE Immed Rel 5 MG TABLET PO PRN (05:13)
[2019-12-22] MEDS: Pantoprazole 40 MG VIAL IVP SCH ×2 (05:28→17:22)
[2019-12-22] MEDS: Lactulose Oral Soln 20 GM/30 ML UDC PO SCH ×3 (07:57→17:22)
[2019-12-22] MEDS: Folic Acid 1 MG TABLET PO SCH (07:57)
[2019-12-22 08:37] LABS: Calcium 8.5 mg/dL (8.6-10.3)
[2019-12-22] MEDS: Insulin LISPRO 300 UNITS/3 ML VIAL SQ SCH ×3 (08:55→16:33)
[2019-12-22] MEDS ORDERED: SODIUM CHLORIDE 0.9% IVPB ONE (09:45)
[2019-12-22] MEDS ORDERED: FUROSEMIDE IVPB ONE (09:45)
[2019-12-22] MEDS ORDERED: Furosemide 40 MG/4 ML VIAL IVP ONE (10:00)
[2019-12-22] MEDS: Albumin Human 5% 12.5 GM/250 ML IV.SOLN IVC SCH ×2 (10:09→15:00)
[2019-12-22] MEDS: Heparin 25,000 UNIT/250 ML D5W 25,000 UNIT/250 ML IV.SOLN IVC SCH (10:39)
[2019-12-22 16:59] LABS: Hematocrit 22.5 % (37.5-50.1); Hemoglobin 6.8 g/dL (12.9-16.9)
[2019-12-22] MEDS: Simethicone 80 MG TAB.CHEW PO PRN (22:48)
[2019-12-23] MEDS: *HR* HYDROcodone/Acet 5/325 mg TABLET PO PRN ×2 (00:05→22:26)
[2019-12-23] MEDS: Ondansetron 4 MG/2 ML VIAL IVP PRN (02:00)
[2019-12-23 03:40] LABS: Basophils % 0.3 %; Eosinophils # 0.3 K/mcL (0.0-0.6); Eosinophils % 3.9 %; Hematocrit 23.9 % (37.5-50.1); Hemoglobin 7.1 g/dL (12.9-16.9); Immature Granulocytes % 0.4 % (0-4); Lymphocytes # 0.9 K/mcL (0.6-4.6); Lymphocytes % 11.4 %; Mean Corpuscular HGB Conc 29.7 g/dL (31.6-35.5); Mean Corpuscular Hemoglobin 28.4 pg (28.0-33.3); Mean Corpuscular Volume 95.6 fL (83.0-100.0); Mean Platelet Volume 10.1 fL (9.4-12.4); Monocytes # 0.8 K/mcL (0.0-1.3); Monocytes % 11.3 %; Neutrophils # 5.4 K/mcL (1.6-8.9); Platelet Count 168 K/mcL (140-400); Red Cell Distribution Width 15.4 % (11.5-14.5); Segmented Neutrophils % 72.7 %; White Blood Count 7.4 K/mcL (4.3-11.1)
[2019-12-23 03:57] LABS: Calcium 8.7 mg/dL (8.6-10.3)
[2019-12-23] MEDS: Heparin 25,000 UNIT/250 ML D5W 25,000 UNIT/250 ML IV.SOLN IVC SCH ×2 (04:23→19:57)
[2019-12-23] MEDS: Pantoprazole 40 MG VIAL IVP SCH ×2 (04:24→18:50)
[2019-12-23] MEDS ORDERED: Prochlorperazine 10 MG/2 ML VIAL IVP PRN (06:26)
[2019-12-23] MEDS: *HR* OxyCODONE Immed Rel 5 MG TABLET PO PRN (08:57)
[2019-12-23] MEDS: Insulin LISPRO 300 UNITS/3 ML VIAL SQ SCH ×3 (09:00→19:29)
[2019-12-23] MEDS: Folic Acid 1 MG TABLET PO SCH (09:10)
[2019-12-23] MEDS: Lactulose Oral Soln 20 GM/30 ML UDC PO SCH ×3 (09:10→18:49)
[2019-12-23] MEDS ORDERED: Ferumoxytol 510 MG in 0.9 % Sodium Chloride 100 ML IVPB ONE (09:27)
[2019-12-23] MEDS: Furosemide 40 MG TABLET PO SCH (10:10)
[2019-12-23 16:07] LABS: Prothrombin Time 22.3 Seconds (9.4-12.1)
[2019-12-23] MEDS ORDERED: *HR* Warfarin 3 MG TABLET PO ONE (18:00)
[2019-12-23] MEDS ORDERED: Warfarin perPT PO PRN (18:00)
[2019-12-23] MEDS: Gabapentin 100 MG CAPSULE PO SCH (19:54)
[2019-12-24 04:12] LABS: Hematocrit 23.4 % (37.5-50.1); Mean Corpuscular HGB Conc 29.9 g/dL (31.6-35.5); Mean Corpuscular Hemoglobin 28.2 pg (28.0-33.3); Mean Corpuscular Volume 94.4 fL (83.0-100.0); Platelet Count 172 K/mcL (140-400); Red Blood Count 2.48 M/mcL (4.19-5.50); Red Cell Distribution Width 15.5 % (11.5-14.5); White Blood Count 6.6 K/mcL (4.3-11.1)
[2019-12-24 04:16] LABS: INR 1.9; Prothrombin Time 21.6 Seconds (9.4-12.1)
[2019-12-24 04:35] LABS: Calcium 9.4 mg/dL (8.6-10.3); Potassium 4.1 mEq/L (3.5-5.1)
[2019-12-24] MEDS: Ipratropium/Albuterol Neb 3 ML IH PRN (05:52)
[2019-12-24] MEDS: Pantoprazole 40 MG VIAL IVP SCH ×2 (06:07→18:47)
[2019-12-24] MEDS ORDERED: carvediloL 25 MG TABLET PO SCH (09:00)
[2019-12-24] MEDS: Insulin LISPRO 300 UNITS/3 ML VIAL SQ SCH ×3 (13:11→18:43)
[2019-12-24] MEDS: Furosemide 40 MG TABLET PO SCH (13:13)
[2019-12-24] MEDS: polyethylene glycoL 3350 17 GM POWD.PACK PO SCH ×2 (13:13→13:34)
[2019-12-24] MEDS: Folic Acid 1 MG TABLET PO SCH (13:13)
[2019-12-24] MEDS: Lactulose Oral Soln 20 GM/30 ML UDC PO SCH ×3 (13:13→18:44)
[2019-12-24] MEDS: Gabapentin 100 MG CAPSULE PO SCH ×2 (13:15→19:59)
[2019-12-24] MEDS: Thiamine (B-1) 100 MG TABLET PO SCH (13:15)
[2019-12-24] MEDS: Multivit/Ca/Min/Fe/FA 1 TAB TABLET PO SCH (13:15)
[2019-12-24] MEDS: Heparin 25,000 UNIT/250 ML D5W 25,000 UNIT/250 ML IV.SOLN IVC SCH ×2 (13:16→18:55)
[2019-12-24] MEDS: *HR* OxyCODONE Immed Rel 5 MG TABLET PO PRN (13:28)
[2019-12-24] MEDS: Ondansetron 4 MG/2 ML VIAL IVP PRN (22:55)
[2019-12-25] MEDS: *HR* OxyCODONE Immed Rel 5 MG TABLET PO PRN ×2 (00:15→19:57)
[2019-12-25] MEDS: Heparin 25,000 UNIT/250 ML D5W 25,000 UNIT/250 ML IV.SOLN IVC SCH (04:25)
[2019-12-25 05:00] LABS: Basophils % 0.4 %; Eosinophils # 0.3 K/mcL (0.0-0.6); Eosinophils % 3.7 %; Hematocrit 22.7 % (37.5-50.1); Hemoglobin 6.8 g/dL (12.9-16.9); Immature Granulocytes % 0.4 % (0-4); Lymphocytes # 0.8 K/mcL (0.6-4.6); Mean Corpuscular Hemoglobin 28.6 pg (28.0-33.3); Mean Corpuscular Volume 95.4 fL (83.0-100.0); Mean Platelet Volume 10.4 fL (9.4-12.4); Monocytes # 0.9 K/mcL (0.0-1.3); Monocytes % 13.3 %; Neutrophils # 4.7 K/mcL (1.6-8.9); Platelet Count 172 K/mcL (140-400); Red Blood Count 2.38 M/mcL (4.19-5.50); Red Cell Distribution Width 15.9 % (11.5-14.5); Segmented Neutrophils % 70.2 %; White Blood Count 6.7 K/mcL (4.3-11.1)
[2019-12-25 05:03] LABS: INR 2.2; Prothrombin Time 25.4 Seconds (9.4-12.1)
[2019-12-25 05:22] LABS: Calcium 9.3 mg/dL (8.6-10.3); Potassium 4.1 mEq/L (3.5-5.1)
[2019-12-25] MEDS: Pantoprazole 40 MG VIAL IVP SCH ×2 (06:21→17:00)
[2019-12-25] MEDS ORDERED: carvediloL 6.25 MG TABLET PO SCH (08:00)
[2019-12-25] MEDS: Insulin LISPRO 300 UNITS/3 ML VIAL SQ SCH ×3 (08:32→17:00)
[2019-12-25] MEDS: Folic Acid 1 MG TABLET PO SCH (10:31)
[2019-12-25] MEDS: Lactulose Oral Soln 20 GM/30 ML UDC PO SCH ×3 (10:31→17:00)
[2019-12-25] MEDS: Multivit/Ca/Min/Fe/FA 1 TAB TABLET PO SCH (10:31)
[2019-12-25] MEDS: Thiamine (B-1) 100 MG TABLET PO SCH (10:31)
[2019-12-25] MEDS: Gabapentin 100 MG CAPSULE PO SCH ×2 (10:31→19:57)
[2019-12-25] MEDS: polyethylene glycoL 3350 17 GM POWD.PACK PO SCH (10:31)
[2019-12-25] MEDS: Furosemide 40 MG TABLET PO SCH (10:32)
[2019-12-25] MEDS: Ipratropium/Albuterol Neb 3 ML IH PRN (11:03)
[2019-12-25] MEDS ORDERED: 0.9 % Sodium Chloride 250 ML ONE (14:17)
[2019-12-25] MEDS: Ondansetron 4 MG/2 ML VIAL IVP PRN (15:12)
[2019-12-26] MEDS: Pantoprazole 40 MG VIAL IVP SCH ×2 (05:16→17:11)
[2019-12-26 05:45] LABS: Mean Corpuscular HGB Conc 30.8 g/dL (31.6-35.5); Mean Corpuscular Hemoglobin 29.1 pg (28.0-33.3); Mean Corpuscular Volume 94.5 fL (83.0-100.0); Mean Platelet Volume 10.1 fL (9.4-12.4); Platelet Count 173 K/mcL (140-400); Red Blood Count 2.75 M/mcL (4.19-5.50); Red Cell Distribution Width 16.1 % (11.5-14.5); White Blood Count 7.2 K/mcL (4.3-11.1)
[2019-12-26 05:50] LABS: INR 1.8; Prothrombin Time 20.1 Seconds (9.4-12.1)
[2019-12-26 06:08] LABS: Calcium 9.1 mg/dL (8.6-10.3); Potassium 4.2 mEq/L (3.5-5.1)
[2019-12-26 06:33] LABS: Folate > 22.3 ng/mL (3.0-16.0); Vitamin B12 1082 pg/mL (250-1100)
[2019-12-26] MEDS: Insulin LISPRO 300 UNITS/3 ML VIAL SQ SCH ×3 (07:38→16:38)
[2019-12-26] MEDS: Ipratropium/Albuterol Neb 3 ML IH PRN (07:47)
[2019-12-26] MEDS: Thiamine (B-1) 100 MG TABLET PO SCH (07:50)
[2019-12-26] MEDS: *HR* OxyCODONE Immed Rel 5 MG TABLET PO PRN ×2 (07:50→20:02)
[2019-12-26] MEDS: Multivit/Ca/Min/Fe/FA 1 TAB TABLET PO SCH (07:50)
[2019-12-26] MEDS: polyethylene glycoL 3350 17 GM POWD.PACK PO SCH (07:51)
[2019-12-26] MEDS: Folic Acid 1 MG TABLET PO SCH (07:51)
[2019-12-26] MEDS: Gabapentin 100 MG CAPSULE PO SCH ×2 (07:51→20:02)
[2019-12-26] MEDS: Lactulose Oral Soln 20 GM/30 ML UDC PO SCH ×3 (07:51→17:11)
[2019-12-26] MEDS: Metoprolol XL (24 HR) Succ 25 MG TAB.ER.24H PO SCH (07:51)
[2019-12-26] MEDS: Furosemide 40 MG TABLET PO SCH (07:51)
[2019-12-26] MEDS: Ondansetron 4 MG/2 ML VIAL IVP PRN (11:16)
[2019-12-26] MEDS ORDERED: *HR* Warfarin 3 MG TABLET PO ONE (18:00)
[2019-12-27] MEDS: *HR* OxyCODONE Immed Rel 5 MG TABLET PO PRN (03:32)
[2019-12-27 03:54] LABS: INR 1.6; Prothrombin Time 17.9 Seconds (9.4-12.1)
[2019-12-27] MEDS: Ipratropium/Albuterol Neb 3 ML IH PRN ×2 (06:02→21:47)
[2019-12-27] MEDS: Pantoprazole 40 MG VIAL IVP SCH (06:11)
[2019-12-27] MEDS: Insulin LISPRO 300 UNITS/3 ML VIAL SQ SCH ×3 (09:57→17:52)
[2019-12-27] MEDS: Folic Acid 1 MG TABLET PO SCH (10:03)
[2019-12-27] MEDS: Thiamine (B-1) 100 MG TABLET PO SCH (10:03)
[2019-12-27] MEDS: Multivit/Ca/Min/Fe/FA 1 TAB TABLET PO SCH (10:03)
[2019-12-27] MEDS: Furosemide 40 MG TABLET PO SCH (10:03)
[2019-12-27] MEDS: Lactulose Oral Soln 20 GM/30 ML UDC PO SCH ×3 (10:03→17:55)
[2019-12-27] MEDS: Gabapentin 100 MG CAPSULE PO SCH ×2 (10:03→19:42)
[2019-12-27] MEDS: Metoprolol XL (24 HR) Succ 25 MG TAB.ER.24H PO SCH (10:04)
[2019-12-27] MEDS: polyethylene glycoL 3350 17 GM POWD.PACK PO SCH (10:06)
[2019-12-27] MEDS: hydrOXYzine pamoate 25 MG CAPSULE PO PRN (17:58)
[2019-12-27] MEDS ORDERED: *HR* Warfarin 3 MG TABLET PO ONE (18:00)
[2019-12-27] MEDS: *HR* HYDROcodone/Acet 5/325 mg TABLET PO PRN (21:29)
[2019-12-28 03:58] LABS: Hematocrit 25.3 % (37.5-50.1); Hemoglobin 7.8 g/dL (12.9-16.9); INR 1.4
[2019-12-28 04:17] LABS: Calcium 9.2 mg/dL (8.6-10.3); Potassium 4.3 mEq/L (3.5-5.1)
[2019-12-28] MEDS: Insulin LISPRO 300 UNITS/3 ML VIAL SQ SCH ×3 (08:12→16:25)
[2019-12-28] MEDS: Multivit/Ca/Min/Fe/FA 1 TAB TABLET PO SCH (08:23)
[2019-12-28] MEDS: Gabapentin 100 MG CAPSULE PO SCH ×2 (08:24→21:01)
[2019-12-28] MEDS: Thiamine (B-1) 100 MG TABLET PO SCH (08:24)
[2019-12-28] MEDS: Lactulose Oral Soln 20 GM/30 ML UDC PO SCH ×3 (08:24→17:12)
[2019-12-28] MEDS: Folic Acid 1 MG TABLET PO SCH (08:24)
[2019-12-28] MEDS: Furosemide 40 MG TABLET PO SCH (08:24)
[2019-12-28] MEDS: Metoprolol XL (24 HR) Succ 25 MG TAB.ER.24H PO SCH (08:24)
[2019-12-28] MEDS: polyethylene glycoL 3350 17 GM POWD.PACK PO SCH ×2 (08:25→17:14)
[2019-12-28] MEDS: *HR* HYDROcodone/Acet 5/325 mg TABLET PO PRN ×3 (08:32→23:49)
[2019-12-28] MEDS: *HR* OxyCODONE Immed Rel 5 MG TABLET PO PRN (21:01)
[2019-12-28] MEDS: Simethicone 80 MG TAB.CHEW PO PRN (21:01)
[2019-12-28] MEDS: Melatonin 3 MG TABLET PO PRN (21:01)
[2019-12-28] MEDS: hydrOXYzine pamoate 25 MG CAPSULE PO PRN (21:02)
[2019-12-29] MEDS ORDERED: 0.9 % Sodium Chloride 500 ML IVC SCH
[2019-12-29 04:32] LABS: INR 1.3; Prothrombin Time 14.8 Seconds (9.4-12.1)
[2019-12-29 05:50] LABS: Calcium 8.9 mg/dL (8.6-10.3); Potassium 4.4 mEq/L (3.5-5.1)
[2019-12-29] MEDS: Insulin LISPRO 300 UNITS/3 ML VIAL SQ SCH ×3 (08:53→16:33)
[2019-12-29] MEDS: Folic Acid 1 MG TABLET PO SCH (09:01)
[2019-12-29] MEDS: Multivit/Ca/Min/Fe/FA 1 TAB TABLET PO SCH (09:01)
[2019-12-29] MEDS: Gabapentin 100 MG CAPSULE PO SCH ×2 (09:02→20:01)
[2019-12-29] MEDS: Thiamine (B-1) 100 MG TABLET PO SCH (09:02)
[2019-12-29] MEDS: Lactulose Oral Soln 20 GM/30 ML UDC PO SCH ×3 (09:02→16:08)
[2019-12-29] MEDS: Metoprolol XL (24 HR) Succ 25 MG TAB.ER.24H PO SCH (09:02)
[2019-12-29] MEDS: polyethylene glycoL 3350 17 GM POWD.PACK PO SCH (09:02)
[2019-12-29] MEDS: *HR* HYDROcodone/Acet 5/325 mg TABLET PO PRN (09:04)
[2019-12-29] MEDS: Ipratropium/Albuterol Neb 3 ML IH PRN (09:16)
[2019-12-29 10:47] LABS: Basophils % 0.6 %; Eosinophils # 0.4 K/mcL (0.0-0.6); Eosinophils % 5.3 %; Hematocrit 27.4 % (37.5-50.1); Hemoglobin 8.4 g/dL (12.9-16.9); Immature Granulocytes % 0.3 % (0-4); Lymphocytes # 0.6 K/mcL (0.6-4.6); Lymphocytes % 9.2 %; Mean Corpuscular HGB Conc 30.7 g/dL (31.6-35.5); Mean Corpuscular Hemoglobin 29.3 pg (28.0-33.3); Mean Corpuscular Volume 95.5 fL (83.0-100.0); Mean Platelet Volume 10.3 fL (9.4-12.4); Monocytes # 0.7 K/mcL (0.0-1.3); Monocytes % 10.4 %; Neutrophils # 4.9 K/mcL (1.6-8.9); Platelet Count 197 K/mcL (140-400); Red Blood Count 2.87 M/mcL (4.19-5.50); Red Cell Distribution Width 16.3 % (11.5-14.5); Segmented Neutrophils % 74.2 %; White Blood Count 6.6 K/mcL (4.3-11.1)
[2019-12-29] MEDS ORDERED: *HR* Heparin 5,000 UNIT/ML VIAL IVP PRN ×2 (13:09)
[2019-12-29] MEDS ORDERED: Heparin 25,000UNIT/250ML 1/2NS 25,000 UNIT/250 ML IV.SOLN IVC SCH (13:15)
[2019-12-30] MEDS: Ipratropium/Albuterol Neb 3 ML IH PRN (02:20)
[2019-12-30 02:53] LABS: Hematocrit 27.4 % (37.5-50.1); Hemoglobin 8.2 g/dL (12.9-16.9)
[2019-12-30 02:57] LABS: INR 1.4; Prothrombin Time 15.5 Seconds (9.4-12.1)
[2019-12-30 03:13] LABS: Calcium 9.1 mg/dL (8.6-10.3); Potassium 4.7 mEq/L (3.5-5.1)
[2019-12-30] MEDS ORDERED: Heparin 25,000UNIT/250ML 1/2NS 25,000 UNIT/250 ML IV.SOLN IVC SCH ×2 (03:30→04:30)
[2019-12-30] MEDS ORDERED: 0.9 % Sodium Chloride 500 ML IVC SCH (06:30)
[2019-12-30] MEDS: Insulin LISPRO 300 UNITS/3 ML VIAL SQ SCH ×3 (07:43→17:09)
[2019-12-30] MEDS: Metoprolol XL (24 HR) Succ 25 MG TAB.ER.24H PO SCH (07:59)
[2019-12-30] MEDS: Lactulose Oral Soln 20 GM/30 ML UDC PO SCH ×4 (07:59→17:10)
[2019-12-30] MEDS: polyethylene glycoL 3350 17 GM POWD.PACK PO SCH (07:59)
[2019-12-30] MEDS: Folic Acid 1 MG TABLET PO SCH (08:00)
[2019-12-30] MEDS: Thiamine (B-1) 100 MG TABLET PO SCH (08:00)
[2019-12-30] MEDS: Gabapentin 100 MG CAPSULE PO SCH ×2 (08:00→20:38)
[2019-12-30] MEDS: Multivit/Ca/Min/Fe/FA 1 TAB TABLET PO SCH (08:00)
[2019-12-30] MEDS: Heparin 25,000UNIT/250ML 1/2NS 25,000 UNIT/250 ML IV.SOLN IVC SCH (14:03)
[2019-12-30] MEDS ORDERED: 0.9 % Sodium Chloride 1,000 ML ONE (14:06)
[2019-12-30] MEDS ORDERED: Heparin 1,000 UNITS/500 mL 500 ML ONE (14:06)
[2019-12-30] MEDS ORDERED: *HR* Heparin 10,000 UNIT/10 ML VIAL ONE (14:06)
[2019-12-30] MEDS ORDERED: Nitroglycerin 1,000 MCG/10 ML VIAL IV ONE (14:07)
[2019-12-30] MEDS ORDERED: ISOVUE-370 200 ML INFUS..BTL ONE (14:07)
[2019-12-30] MEDS ORDERED: Furosemide 40 MG TABLET PO SCH (15:30)
[2019-12-30] MEDS: *HR* HYDROcodone/Acet 5/325 mg TABLET PO PRN (17:09)
[2019-12-31 05:56] LABS: Heparin anti-factor XA UFH 0.46 IU/mL (0.30-0.70); INR 1.3; Prothrombin Time 15.3 Seconds (9.4-12.1)
[2019-12-31 06:06] LABS: Calcium 8.8 mg/dL (8.6-10.3); Potassium 4.4 mEq/L (3.5-5.1)
[2019-12-31] MEDS: polyethylene glycoL 3350 17 GM POWD.PACK PO SCH (08:58)
[2019-12-31] MEDS: Metoprolol XL (24 HR) Succ 25 MG TAB.ER.24H PO SCH (08:58)
[2019-12-31] MEDS: Lactulose Oral Soln 20 GM/30 ML UDC PO SCH ×3 (08:58→18:45)
[2019-12-31] MEDS: Multivit/Ca/Min/Fe/FA 1 TAB TABLET PO SCH (08:59)
[2019-12-31] MEDS: Folic Acid 1 MG TABLET PO SCH (09:00)
[2019-12-31] MEDS: Thiamine (B-1) 100 MG TABLET PO SCH (09:00)
[2019-12-31] MEDS: Gabapentin 100 MG CAPSULE PO SCH ×2 (09:00→20:33)
[2019-12-31] MEDS: *HR* HYDROcodone/Acet 5/325 mg TABLET PO PRN ×2 (09:05→23:28)
[2019-12-31] MEDS ORDERED: Furosemide 40 MG TABLET PO SCH (09:45)
[2019-12-31] MEDS: Insulin LISPRO 300 UNITS/3 ML VIAL SQ SCH ×3 (10:15→16:30)
[2019-12-31] MEDS: Heparin 25,000UNIT/250ML 1/2NS 25,000 UNIT/250 ML IV.SOLN IVC SCH (14:00)
[2019-12-31] MEDS ORDERED: *HR* Warfarin 3 MG TABLET PO ONE (18:00)
[2019-12-31] MEDS ORDERED: Warfarin perPT PO PRN (18:00)
[2020-01-01 04:56] LABS: Heparin anti-factor XA UFH 0.46 IU/mL (0.30-0.70)
[2020-01-01 04:57] LABS: INR 1.4
[2020-01-01 05:08] LABS: Calcium 9.3 mg/dL (8.6-10.3); Potassium 4.2 mEq/L (3.5-5.1)
[2020-01-01] MEDS: polyethylene glycoL 3350 17 GM POWD.PACK PO SCH (10:01)
[2020-01-01] MEDS: Lactulose Oral Soln 20 GM/30 ML UDC PO SCH ×4 (10:02→16:27)
[2020-01-01] MEDS: Furosemide 40 MG TABLET PO SCH ×2 (10:02→16:24)
[2020-01-01] MEDS: Multivit/Ca/Min/Fe/FA 1 TAB TABLET PO SCH (10:03)
[2020-01-01] MEDS: Gabapentin 100 MG CAPSULE PO SCH ×2 (10:03→20:55)
[2020-01-01] MEDS: Metoprolol XL (24 HR) Succ 25 MG TAB.ER.24H PO SCH (10:03)
[2020-01-01] MEDS: Folic Acid 1 MG TABLET PO SCH (10:04)
[2020-01-01] MEDS: Thiamine (B-1) 100 MG TABLET PO SCH (10:04)
[2020-01-01] MEDS: Insulin LISPRO 300 UNITS/3 ML VIAL SQ SCH ×3 (11:25→16:21)
[2020-01-01] MEDS: *HR* HYDROcodone/Acet 5/325 mg TABLET PO PRN (11:34)
[2020-01-01] MEDS: Heparin 25,000UNIT/250ML 1/2NS 25,000 UNIT/250 ML IV.SOLN IVC SCH (16:16)
[2020-01-01] MEDS ORDERED: *HR* Warfarin 3 MG TABLET PO ONE (18:00)
[2020-01-01] MEDS: *HR* OxyCODONE Immed Rel 5 MG TABLET PO PRN (20:54)
[2020-01-01] MEDS: hydrOXYzine pamoate 25 MG CAPSULE PO PRN (22:23)
[2020-01-02] MEDS: Acetaminophen 325 MG TABLET PO PRN (01:47)
[2020-01-02] MEDS: Melatonin 3 MG TABLET PO PRN (02:39)
[2020-01-02 03:04] LABS: Basophils % 0.4 %; Eosinophils # 0.2 K/mcL (0.0-0.6); Eosinophils % 3.4 %; Hemoglobin 8.5 g/dL (12.9-16.9); Immature Granulocytes % 0.1 % (0-4); Lymphocytes # 0.7 K/mcL (0.6-4.6); Lymphocytes % 9.6 %; Mean Corpuscular HGB Conc 30.4 g/dL (31.6-35.5); Mean Corpuscular Volume 95.6 fL (83.0-100.0); Mean Platelet Volume 10.1 fL (9.4-12.4); Monocytes # 0.8 K/mcL (0.0-1.3); Monocytes % 12.4 %; Platelet Count 189 K/mcL (140-400); Red Blood Count 2.93 M/mcL (4.19-5.50); Red Cell Distribution Width 16.4 % (11.5-14.5); Segmented Neutrophils % 74.1 %; White Blood Count 6.8 K/mcL (4.3-11.1)
[2020-01-02 03:07] LABS: INR 1.7; Prothrombin Time 19.1 Seconds (9.4-12.1)
[2020-01-02 03:22] LABS: Calcium 9.4 mg/dL (8.6-10.3); Potassium 3.8 mEq/L (3.5-5.1)
[2020-01-02] MEDS: Multivit/Ca/Min/Fe/FA 1 TAB TABLET PO SCH (09:10)
[2020-01-02] MEDS: Metoprolol XL (24 HR) Succ 25 MG TAB.ER.24H PO SCH (09:10)
[2020-01-02] MEDS: Folic Acid 1 MG TABLET PO SCH (09:11)
[2020-01-02] MEDS: Furosemide 40 MG TABLET PO SCH ×2 (09:11→17:16)
[2020-01-02] MEDS: Thiamine (B-1) 100 MG TABLET PO SCH (09:11)
[2020-01-02] MEDS: *HR* OxyCODONE Immed Rel 5 MG TABLET PO PRN ×2 (09:11→17:21)
[2020-01-02] MEDS: Gabapentin 100 MG CAPSULE PO SCH ×2 (09:11→22:08)
[2020-01-02] MEDS: polyethylene glycoL 3350 17 GM POWD.PACK PO SCH (09:12)
[2020-01-02] MEDS: Lactulose Oral Soln 20 GM/30 ML UDC PO SCH ×3 (09:12→17:16)
[2020-01-02] MEDS: Insulin LISPRO 300 UNITS/3 ML VIAL SQ SCH ×3 (09:12→17:16)
[2020-01-02] MEDS ORDERED: Albumin 25% 25gram/100mL 25 GM/100 ML IV.SOLN IVPB ONE (12:24)
[2020-01-02] MEDS: Heparin 25,000UNIT/250ML 1/2NS 25,000 UNIT/250 ML IV.SOLN IVC SCH (17:16)
[2020-01-02] MEDS ORDERED: *HR* Warfarin 3 MG TABLET PO ONE (18:00)
[2020-01-03 04:21] LABS: INR 1.7; Prothrombin Time 19.5 Seconds (9.4-12.1)
[2020-01-03 04:37] LABS: Calcium 9.2 mg/dL (8.6-10.3); Potassium 4.1 mEq/L (3.5-5.1)
[2020-01-03] MEDS: Metoprolol XL (24 HR) Succ 25 MG TAB.ER.24H PO SCH (09:19)
[2020-01-03] MEDS: Multivit/Ca/Min/Fe/FA 1 TAB TABLET PO SCH (09:19)
[2020-01-03] MEDS: Gabapentin 100 MG CAPSULE PO SCH (09:19)
[2020-01-03] MEDS: Lactulose Oral Soln 20 GM/30 ML UDC PO SCH ×3 (09:19→16:49)
[2020-01-03] MEDS: hydrOXYzine pamoate 25 MG CAPSULE PO PRN (09:19)
[2020-01-03] MEDS: Insulin LISPRO 300 UNITS/3 ML VIAL SQ SCH ×3 (09:20→16:49)
[2020-01-03] MEDS: Folic Acid 1 MG TABLET PO SCH (09:20)
[2020-01-03] MEDS: Thiamine (B-1) 100 MG TABLET PO SCH (09:20)
[2020-01-03] MEDS: Furosemide 40 MG TABLET PO SCH ×2 (09:20→16:47)
[2020-01-03] MEDS: polyethylene glycoL 3350 17 GM POWD.PACK PO SCH (09:21)
[2020-01-03] MEDS ORDERED: *HR* Enoxaparin 150 MG/ML SYRINGE SQ SCH (12:49)
[2020-01-03 15:34] VITALS: BP 161/65
[2020-01-03] MEDS: Acetaminophen 325 MG TABLET PO PRN (16:47)
[2020-01-03] MEDS ORDERED: *HR* Warfarin 4 MG TABLET PO ONE (18:00)
== END 2020-01-03 17:47 | DRG 194 ==
LOC: EMEROOARM 08:39 → 2ANU 08:39 → ICNU 17:36 → SUATTDRO 12-19 09:46 → 2ANU 12-22 18:24
PROVIDERS: ADMIT Internal Medicine; ATTEND Internal Medicine

== ENCOUNTER 2020-01-11 12:58 | Inpatient (IN) ==
[2020-01-11] MEDS ORDERED: methylPREDNISolone 125 MG/2 ML VIAL IVP ONE (13:18)
[2020-01-11] MEDS ORDERED: Furosemide 40 MG/4 ML VIAL IVP ONE (13:18)
[2020-01-11] MEDS ORDERED: Ipratropium/Albuterol Neb 3 ML IH ONE (13:19)
[2020-01-11 13:47] LABS: Basophils % 0.3 %; Eosinophils # 0.2 K/mcL (0.0-0.6); Eosinophils % 1.7 %; Hemoglobin 9.2 g/dL (12.9-16.9); Immature Granulocytes % 0.5 % (0-4); Lymphocytes # 0.6 K/mcL (0.6-4.6); Lymphocytes % 5.8 %; Mean Corpuscular HGB Conc 30.7 g/dL (31.6-35.5); Mean Corpuscular Hemoglobin 29.4 pg (28.0-33.3); Mean Corpuscular Volume 95.8 fL (83.0-100.0); Mean Platelet Volume 10.3 fL (9.4-12.4); Monocytes # 0.8 K/mcL (0.0-1.3); Monocytes % 7.8 %; Neutrophils # 9.1 K/mcL (1.6-8.9); Platelet Count 225 K/mcL (140-400); Red Blood Count 3.13 M/mcL (4.19-5.50); Red Cell Distribution Width 16.1 % (11.5-14.5); Segmented Neutrophils % 83.9 %; White Blood Count 10.8 K/mcL (4.3-11.1)
[2020-01-11 13:51] LABS: Activated Partial Thrombo Time 52.5 Seconds (26.0-36.0)
[2020-01-11 13:59] LABS: INR 13.7; Prothrombin Time 156.6 Seconds (9.4-12.1)
[2020-01-11 14:07] LABS: Troponin I 0.04 ng/mL (< 0.04)
[2020-01-11 14:19] LABS: Alanine Aminotransferase 8 Units/L (7-52); Albumin 3.6 g/dL (3.5-5.7); Albumin/Globulin Ratio 1.1 (1.1-2.2); Alkaline Phosphatase 90 Units/L (34-104); Aspartate Amino Transferase 18 Units/L (13-39); BUN/Creatinine Ratio 21 (6-26); Bilirubin,Direct 0.3 mg/dL (0.0-0.2); Bilirubin,Indirect 0.5 mg/dL (0.0-1.0); Bilirubin,Total 0.8 mg/dL (0.3-1.0); Blood Urea Nitrogen 22 mg/dL (6-20); Calcium 8.6 mg/dL (8.6-10.3); Carbon Dioxide 31 mEq/L (23-29); Chloride 94 mEq/L (98-107); Globulin 3.2 g/dL (2.4-3.5); Glucose 113 mg/dL (70-105); Osmolality,Calculated 292 (280-300); Potassium 3.4 mEq/L (3.5-5.1); Sodium 139 mEq/L (136-145); Total Protein 6.8 g/dL (6.4-8.9); eGFR For African Americans > 60 (> 60); eGFR For Non-African Americans > 60 (> 60)
[2020-01-11] MEDS ORDERED: Albuterol 2.5 MG/3 ML NEBULIZER IH ONE (16:01)
[2020-01-11] MEDS ORDERED: Ondansetron 4 MG/2 ML VIAL IVP PRN (16:44)
[2020-01-11] MEDS ORDERED: Naloxone 0.4 MG/ML INJ IVP PRN (16:44)
[2020-01-11] MEDS ORDERED: D5% in Water 1,000 ML IVC PRN (16:59)
[2020-01-11] MEDS ORDERED: Dextrose Gel 15 GM/37.5 ML TUBE PO PRN ×2 (16:59)
[2020-01-11] MEDS ORDERED: *HR* Dextrose 50 % in Water (Vial) 50 ML VIAL IVP PRN (16:59)
[2020-01-11 18:32] LABS: ABG Base Excess 4 mEq/L (-2 to 3); ABG HCO3 30 mEq/L (21-27); ABG Oxygen Saturation 99 % (95-98); ABG PCO2 48 mmHg (35-45); ABG PH 7.39 pH Units (7.32-7.45); ABG PO2 142 mmHg (85-104); ABG TCO2 31 mEq/L (20-26)
[2020-01-11] MEDS: Insulin LISPRO 300 UNITS/3 ML VIAL SQ SCH (19:43)
[2020-01-11] MEDS: Levalbuterol Neb 0.63 MG/3 ML IH SCH (22:46)
[2020-01-12] MEDS: Levalbuterol Neb 0.63 MG/3 ML IH SCH ×4 (03:23→21:36)
[2020-01-12 04:55] LABS: Hematocrit 28.7 % (37.5-50.1); Hemoglobin 8.8 g/dL (12.9-16.9); Immature Granulocytes % 0.6 % (0-4); Lymphocytes # 0.3 K/mcL (0.6-4.6); Lymphocytes % 5.1 %; Mean Corpuscular HGB Conc 30.7 g/dL (31.6-35.5); Mean Corpuscular Hemoglobin 28.4 pg (28.0-33.3); Mean Corpuscular Volume 92.6 fL (83.0-100.0); Mean Platelet Volume 10.4 fL (9.4-12.4); Monocytes # 0.1 K/mcL (0.0-1.3); Monocytes % 1.4 %; Neutrophils # 4.6 K/mcL (1.6-8.9); Platelet Count 218 K/mcL (140-400); Red Cell Distribution Width 15.7 % (11.5-14.5); Segmented Neutrophils % 92.9 %
[2020-01-12 04:58] LABS: INR 2.4
[2020-01-12 04:59] LABS: White Blood Count 4.9 K/mcL (4.3-11.1)
[2020-01-12 05:08] LABS: Albumin 3.4 g/dL (3.5-5.7); Albumin/Globulin Ratio 1.1 (1.1-2.2); Bilirubin,Direct 0.2 mg/dL (0.0-0.2); Bilirubin,Indirect 0.4 mg/dL (0.0-1.0); Bilirubin,Total 0.6 mg/dL (0.3-1.0); Total Protein 6.4 g/dL (6.4-8.9)
[2020-01-12 05:09] LABS: % Iron Saturation 8 % (20-55); Iron 15 mcg/dL (65-175); Transferrin 130 mg/dL (203-362)
[2020-01-12 05:10] LABS: BUN/Creatinine Ratio 30 (6-26); Blood Urea Nitrogen 28 mg/dL (6-20); Calcium 8.7 mg/dL (8.6-10.3); Carbon Dioxide 27 mEq/L (23-29); Chloride 96 mEq/L (98-107); Glucose 215 mg/dL (70-105); Magnesium 1.4 mg/dL (1.6-2.6); Osmolality,Calculated 296 (280-300); Potassium 4.3 mEq/L (3.5-5.1); Sodium 137 mEq/L (136-145); eGFR For African Americans > 60 (> 60); eGFR For Non-African Americans > 60 (> 60)
[2020-01-12] MEDS: Pantoprazole 40 MG VIAL IVP SCH ×2 (05:17→16:19)
[2020-01-12 05:27] LABS: Ferritin 543 ng/mL (20-250)
[2020-01-12 05:36] LABS: Folate > 22.3 ng/mL (3.0-16.0); Vitamin B12 1150 pg/mL (250-1100)
[2020-01-12] MEDS ORDERED: Furosemide 40 MG/4 ML VIAL IVP SCH (09:00)
[2020-01-12] MEDS ORDERED: predniSONE 20 MG TABLET PO SCH (09:00)
[2020-01-12] MEDS: Insulin LISPRO 300 UNITS/3 ML VIAL SQ SCH ×4 (09:20→19:53)
[2020-01-12] MEDS: Spironolactone 25 MG TABLET PO SCH (09:21)
[2020-01-12] MEDS: Magnesium Oxide 400 MG TABLET PO SCH ×2 (09:21→19:53)
[2020-01-12] MEDS: Furosemide 240 MG in 0.9 % Sodium Chloride 96 ML IVC SCH (12:29)
[2020-01-12] MEDS ORDERED: Warfarin perPT PO PRN (18:00)
[2020-01-12] MEDS: Lactulose Oral Soln 20 GM/30 ML UDC PO SCH (19:53)
[2020-01-12] MEDS ORDERED: *HR* Warfarin 1 MG TABLET PO ONE (19:54)
[2020-01-12] MEDS: Acetaminophen 325 MG TABLET PO PRN (20:16)
[2020-01-13] MEDS: Levalbuterol Neb 0.63 MG/3 ML IH SCH ×4 (03:05→22:10)
[2020-01-13] MEDS: Acetaminophen 325 MG TABLET PO PRN ×3 (04:05→21:51)
[2020-01-13 07:29] LABS: Eosinophils % 0.1 %; Hematocrit 27.3 % (37.5-50.1); Hemoglobin 8.5 g/dL (12.9-16.9); Immature Granulocytes % 0.6 % (0-4); Lymphocytes # 0.4 K/mcL (0.6-4.6); Lymphocytes % 4.5 %; Mean Corpuscular HGB Conc 31.1 g/dL (31.6-35.5); Mean Corpuscular Hemoglobin 28.7 pg (28.0-33.3); Mean Corpuscular Volume 92.2 fL (83.0-100.0); Mean Platelet Volume 10.8 fL (9.4-12.4); Monocytes # 0.8 K/mcL (0.0-1.3); Monocytes % 8.3 %; Platelet Count 244 K/mcL (140-400); Red Blood Count 2.96 M/mcL (4.19-5.50); Red Cell Distribution Width 15.8 % (11.5-14.5); Segmented Neutrophils % 86.5 %; White Blood Count 9.4 K/mcL (4.3-11.1)
[2020-01-13 07:38] LABS: INR 1.4; Prothrombin Time 15.4 Seconds (9.4-12.1)
[2020-01-13 07:42] LABS: Neutrophils # 8.1 K/mcL (1.6-8.9)
[2020-01-13 07:51] LABS: BUN/Creatinine Ratio 29 (6-26); Blood Urea Nitrogen 32 mg/dL (6-20); Calcium 9.2 mg/dL (8.6-10.3); Carbon Dioxide 34 mEq/L (23-29); Chloride 96 mEq/L (98-107); Glucose 158 mg/dL (70-105); Osmolality,Calculated 298 (280-300); Potassium 3.7 mEq/L (3.5-5.1); Sodium 139 mEq/L (136-145); eGFR For African Americans > 60 (> 60); eGFR For Non-African Americans > 60 (> 60)
[2020-01-13] MEDS: Insulin LISPRO 300 UNITS/3 ML VIAL SQ SCH ×4 (10:12→21:23)
[2020-01-13] MEDS: Lactulose Oral Soln 20 GM/30 ML UDC PO SCH ×3 (10:12→18:37)
[2020-01-13] MEDS: Furosemide 240 MG in 0.9 % Sodium Chloride 96 ML IVC SCH (10:12)
[2020-01-13] MEDS: Magnesium Oxide 400 MG TABLET PO SCH ×2 (10:14→21:51)
[2020-01-13] MEDS: Spironolactone 25 MG TABLET PO SCH (10:15)
[2020-01-13] MEDS: polyethylene glycoL 3350 17 GM POWD.PACK PO SCH (10:15)
[2020-01-13] MEDS: *HR* Enoxaparin 120 MG/0.8 ML SYRINGE SQ SCH ×2 (12:40→18:37)
[2020-01-13] MEDS: Metoprolol XL (24 HR) Succ 25 MG TAB.ER.24H PO SCH (13:35)
[2020-01-13] MEDS ORDERED: *HR* Warfarin 1 MG TABLET PO ONE (18:00)
[2020-01-13] MEDS: Melatonin 3 MG TABLET PO SCH (21:51)
[2020-01-14 01:22] LABS: Basophils % 0.1 %; Eosinophils # 0.2 K/mcL (0.0-0.6); Eosinophils % 1.4 %; Hematocrit 26.5 % (37.5-50.1); Hemoglobin 8.1 g/dL (12.9-16.9); Immature Granulocytes % 0.5 % (0-4); Mean Corpuscular HGB Conc 30.6 g/dL (31.6-35.5); Mean Corpuscular Hemoglobin 28.5 pg (28.0-33.3); Mean Corpuscular Volume 93.3 fL (83.0-100.0); Mean Platelet Volume 10.3 fL (9.4-12.4); Monocytes % 8.4 %; Platelet Count 225 K/mcL (140-400); Red Blood Count 2.84 M/mcL (4.19-5.50); Red Cell Distribution Width 15.8 % (11.5-14.5); Segmented Neutrophils % 82.6 %
[2020-01-14 01:23] LABS: Lymphocytes # 0.9 K/mcL (0.6-4.6); White Blood Count 12.1 K/mcL (4.3-11.1)
[2020-01-14 01:31] LABS: INR 1.4; Prothrombin Time 15.9 Seconds (9.4-12.1)
[2020-01-14 01:42] LABS: BUN/Creatinine Ratio 27 (6-26); Blood Urea Nitrogen 31 mg/dL (6-20); Calcium 8.9 mg/dL (8.6-10.3); Carbon Dioxide 32 mEq/L (23-29); Chloride 97 mEq/L (98-107); Glucose 110 mg/dL (70-105); Osmolality,Calculated 295 (280-300); Potassium 3.6 mEq/L (3.5-5.1); Sodium 139 mEq/L (136-145); eGFR For African Americans > 60 (> 60); eGFR For Non-African Americans > 60 (> 60)
[2020-01-14] MEDS: Levalbuterol Neb 0.63 MG/3 ML IH SCH ×4 (03:24→22:06)
[2020-01-14] MEDS: *HR* Enoxaparin 120 MG/0.8 ML SYRINGE SQ SCH (06:00)
[2020-01-14] MEDS: Lactulose Oral Soln 20 GM/30 ML UDC PO SCH ×3 (09:04→18:53)
[2020-01-14] MEDS: Metoprolol XL (24 HR) Succ 25 MG TAB.ER.24H PO SCH (09:04)
[2020-01-14] MEDS: Spironolactone 25 MG TABLET PO SCH (09:04)
[2020-01-14] MEDS: Thiamine (B-1) 100 MG TABLET PO SCH (09:04)
[2020-01-14] MEDS: Magnesium Oxide 400 MG TABLET PO SCH ×2 (09:05→20:07)
[2020-01-14] MEDS: polyethylene glycoL 3350 17 GM POWD.PACK PO SCH (09:05)
[2020-01-14] MEDS: Folic Acid 1 MG TABLET PO SCH (09:05)
[2020-01-14] MEDS: Insulin LISPRO 300 UNITS/3 ML VIAL SQ SCH ×4 (09:06→19:46)
[2020-01-14] MEDS: Furosemide 40 MG TABLET PO SCH ×2 (09:16→18:53)
[2020-01-14] MEDS: Acetaminophen 325 MG TABLET PO PRN (14:12)
[2020-01-14] MEDS: Melatonin 3 MG TABLET PO SCH (20:08)
[2020-01-14] MEDS ORDERED: Apixaban 5 MG TABLET PO SCH (21:00)
[2020-01-14 21:37] LABS: Bacteria,Urine Few per hpf (None-Few); Bilirubin,Urine Negative (Negative); Blood,Urine Negative (Negative); Clarity,Urine Clear (Clear); Color,Urine Light-Yellow (Yellow); Glucose,Urine (UA) Normal (Normal); Hyaline Casts,Urine Few per lpf (None Seen); Ketones,Urine Negative (Negative); Leukocyte Esterase,Urine Small (Negative); Mucus,Urine Few per lpf (None-Few); Nitrite,Urine Negative (Negative); PH,Urine 6.5 pH Units (5.0-8.0); Protein,Urine Trace mg/dL (Neg-Trace); RBC,Urine 0-3 per hpf (0-3); Specific Gravity,Urine 1.013 (1.010-1.025); Urobilinogen,Urine Normal (Normal)
[2020-01-15] MEDS: Acetaminophen 325 MG TABLET PO PRN (03:20)
[2020-01-15] MEDS: Levalbuterol Neb 0.63 MG/3 ML IH SCH ×4 (03:57→21:35)
[2020-01-15 06:18] LABS: Basophils % 0.2 %; Eosinophils # 0.3 K/mcL (0.0-0.6); Eosinophils % 3.1 %; Hematocrit 27.5 % (37.5-50.1); Hemoglobin 8.2 g/dL (12.9-16.9); Immature Granulocytes % 0.6 % (0-4); Lymphocytes # 0.8 K/mcL (0.6-4.6); Lymphocytes % 9.2 %; Mean Corpuscular HGB Conc 29.8 g/dL (31.6-35.5); Mean Corpuscular Hemoglobin 28.1 pg (28.0-33.3); Mean Corpuscular Volume 94.2 fL (83.0-100.0); Mean Platelet Volume 10.8 fL (9.4-12.4); Monocytes # 0.7 K/mcL (0.0-1.3); Monocytes % 8.5 %; Neutrophils # 6.6 K/mcL (1.6-8.9); Platelet Count 205 K/mcL (140-400); Red Blood Count 2.92 M/mcL (4.19-5.50); Red Cell Distribution Width 15.9 % (11.5-14.5); Segmented Neutrophils % 78.4 %; White Blood Count 8.5 K/mcL (4.3-11.1)
[2020-01-15 06:33] LABS: INR 1.5; Prothrombin Time 16.8 Seconds (9.4-12.1)
[2020-01-15 06:39] LABS: BUN/Creatinine Ratio 24 (6-26); Blood Urea Nitrogen 26 mg/dL (6-20); Carbon Dioxide 35 mEq/L (23-29); Chloride 95 mEq/L (98-107); Glucose 103 mg/dL (70-105); Osmolality,Calculated 291 (280-300); Potassium 3.6 mEq/L (3.5-5.1); Sodium 138 mEq/L (136-145); eGFR For African Americans > 60 (> 60); eGFR For Non-African Americans > 60 (> 60)
[2020-01-15] MEDS: Insulin LISPRO 300 UNITS/3 ML VIAL SQ SCH ×4 (08:17→21:36)
[2020-01-15] MEDS: Furosemide 40 MG TABLET PO SCH ×2 (08:26→16:04)
[2020-01-15] MEDS: Thiamine (B-1) 100 MG TABLET PO SCH (08:26)
[2020-01-15] MEDS: Lactulose Oral Soln 20 GM/30 ML UDC PO SCH ×3 (08:26→16:03)
[2020-01-15] MEDS: polyethylene glycoL 3350 17 GM POWD.PACK PO SCH (08:27)
[2020-01-15] MEDS: Magnesium Oxide 400 MG TABLET PO SCH ×2 (08:27→20:25)
[2020-01-15] MEDS: Folic Acid 1 MG TABLET PO SCH (08:27)
[2020-01-15] MEDS: Spironolactone 25 MG TABLET PO SCH (08:27)
[2020-01-15] MEDS: *HR* Enoxaparin 120 MG/0.8 ML SYRINGE SQ SCH ×2 (09:06→16:04)
[2020-01-15] MEDS: Melatonin 3 MG TABLET PO SCH (20:26)
[2020-01-16 02:13] LABS: INR 1.4; Prothrombin Time 15.4 Seconds (9.4-12.1)
[2020-01-16 02:30] LABS: BUN/Creatinine Ratio 23 (6-26); Blood Urea Nitrogen 24 mg/dL (6-20); Calcium 9.1 mg/dL (8.6-10.3); Carbon Dioxide 32 mEq/L (23-29); Chloride 96 mEq/L (98-107); Glucose 104 mg/dL (70-105); Osmolality,Calculated 286 (280-300); Potassium 3.9 mEq/L (3.5-5.1); Sodium 136 mEq/L (136-145); eGFR For African Americans > 60 (> 60); eGFR For Non-African Americans > 60 (> 60)
[2020-01-16] MEDS: Levalbuterol Neb 0.63 MG/3 ML IH SCH ×4 (03:44→21:24)
[2020-01-16] MEDS: Apixaban 5 MG TABLET PO SCH ×2 (06:14→17:13)
[2020-01-16] MEDS: Lactulose Oral Soln 20 GM/30 ML UDC PO SCH ×3 (08:13→17:14)
[2020-01-16] MEDS: polyethylene glycoL 3350 17 GM POWD.PACK PO SCH (08:13)
[2020-01-16] MEDS: Insulin LISPRO 300 UNITS/3 ML VIAL SQ SCH ×4 (08:13→20:51)
[2020-01-16] MEDS: Magnesium Oxide 400 MG TABLET PO SCH ×2 (08:14→20:08)
[2020-01-16] MEDS: Furosemide 40 MG TABLET PO SCH ×2 (08:14→17:13)
[2020-01-16] MEDS: Folic Acid 1 MG TABLET PO SCH (08:14)
[2020-01-16] MEDS: Spironolactone 25 MG TABLET PO SCH (08:14)
[2020-01-16] MEDS: Thiamine (B-1) 100 MG TABLET PO SCH (08:15)
[2020-01-16] MEDS: Aspirin Enteric Coated 81 MG Tablet PO SCH (08:15)
[2020-01-16] MEDS ORDERED: Acetaminophen 325 MG TABLET PO PRN (10:13)
[2020-01-16] MEDS: *HR* OxyCODONE/APAP 5/325 TABLET PO PRN ×2 (10:35→22:20)
[2020-01-16] MEDS: Melatonin 3 MG TABLET PO SCH (23:25)
[2020-01-17] MEDS: Levalbuterol Neb 0.63 MG/3 ML IH SCH ×3 (03:30→14:57)
[2020-01-17] MEDS: Apixaban 5 MG TABLET PO SCH (06:00)
[2020-01-17] MEDS: Aspirin Enteric Coated 81 MG Tablet PO SCH (08:55)
[2020-01-17] MEDS: Furosemide 40 MG TABLET PO SCH (08:55)
[2020-01-17] MEDS: Thiamine (B-1) 100 MG TABLET PO SCH (08:55)
[2020-01-17] MEDS: Magnesium Oxide 400 MG TABLET PO SCH (08:55)
[2020-01-17] MEDS: Folic Acid 1 MG TABLET PO SCH (08:55)
[2020-01-17] MEDS: Spironolactone 25 MG TABLET PO SCH (08:55)
[2020-01-17] MEDS: Insulin LISPRO 300 UNITS/3 ML VIAL SQ SCH ×2 (08:55→12:10)
[2020-01-17] MEDS: Lactulose Oral Soln 20 GM/30 ML UDC PO SCH ×2 (08:56→12:10)
[2020-01-17] MEDS: polyethylene glycoL 3350 17 GM POWD.PACK PO SCH (08:56)
[2020-01-17 11:22] LABS: Bacteria,Urine Few per hpf (None-Few); Bilirubin,Urine Negative (Negative); Blood,Urine Negative (Negative); Clarity,Urine Clear (Clear); Color,Urine Light-Yellow (Yellow); Glucose,Urine (UA) Normal (Normal); Ketones,Urine Negative (Negative); Leukocyte Esterase,Urine Moderate (Negative); Nitrite,Urine Positive (Negative); Protein,Urine Negative (Neg-Trace); Specific Gravity,Urine 1.012 (1.010-1.025); Squamous Epithelial Cell,Urine Few per hpf (None-Few); Urobilinogen,Urine Normal (Normal); WBC,Urine 15-30 per hpf (0-3)
[2020-01-17 15:35] VITALS: BP 132/82
== END 2020-01-17 16:28 | disposition home health service (06) | DRG 194 ==
LOC: SUATTDRO → 2ANU 12:58 → EMEROOARM 12:58 → SUATTDRO 16:53 → 2ANU 17:30
PROVIDERS: ADMIT Pharmacist; ATTEND Internal Medicine

== ENCOUNTER 2020-02-15 16:28 | Inpatient (IN) ==
[2020-02-15] MEDS ORDERED: methylPREDNISolone 125 MG/2 ML VIAL IVP ONE (17:10)
[2020-02-15] MEDS ORDERED: Ipratropium/Albuterol Neb 3 ML IH ONE (17:10)
[2020-02-15 17:17] LABS: Basophils # 0.1 K/mcL (0.0-0.2); Basophils % 0.5 %; Eosinophils # 0.1 K/mcL (0.0-0.6); Eosinophils % 0.7 %; Hematocrit 21.1 % (37.5-50.1); Hemoglobin 6.6 g/dL (12.9-16.9); Immature Granulocytes % 0.6 % (0-4); Lymphocytes # 0.4 K/mcL (0.6-4.6); Lymphocytes % 3.7 %; Mean Corpuscular HGB Conc 31.3 g/dL (31.6-35.5); Mean Corpuscular Hemoglobin 30.1 pg (28.0-33.3); Mean Corpuscular Volume 96.3 fL (83.0-100.0); Mean Platelet Volume 10.7 fL (9.4-12.4); Monocytes # 0.7 K/mcL (0.0-1.3); Monocytes % 6.1 %; Neutrophils # 9.5 K/mcL (1.6-8.9); Platelet Count 200 K/mcL (140-400); Red Blood Count 2.19 M/mcL (4.19-5.50); Red Cell Distribution Width 15.2 % (11.5-14.5); Segmented Neutrophils % 88.4 %; White Blood Count 10.7 K/mcL (4.3-11.1)
[2020-02-15 17:40] LABS: INR 1.8; Prothrombin Time 20.4 Seconds (9.4-12.1)
[2020-02-15 17:40] LABS: ABG Base Excess 2 mEq/L (-2 to 3); ABG HCO3 28 mEq/L (21-27); ABG Oxygen Saturation 100 % (95-98); ABG PCO2 56 mmHg (35-45); ABG PH 7.31 pH Units (7.32-7.45); ABG PO2 311 mmHg (85-104); ABG TCO2 30 mEq/L (20-26)
[2020-02-15 17:50] LABS: Alanine Aminotransferase 5 Units/L (7-52); Albumin 3.7 g/dL (3.5-5.7); Albumin/Globulin Ratio 1.2 (1.1-2.2); Alkaline Phosphatase 106 Units/L (34-104); Aspartate Amino Transferase 18 Units/L (13-39); BUN/Creatinine Ratio 26 (6-26); Bilirubin,Direct 0.1 mg/dL (0.0-0.2); Bilirubin,Indirect 0.4 mg/dL (0.0-1.0); Bilirubin,Total 0.5 mg/dL (0.3-1.0); Blood Urea Nitrogen 44 mg/dL (6-20); Calcium 8.8 mg/dL (8.6-10.3); Carbon Dioxide 23 mEq/L (23-29); Chloride 90 mEq/L (98-107); Globulin 3.1 g/dL (2.4-3.5); Glucose 134 mg/dL (70-105); Osmolality,Calculated 269 (280-300); Potassium 5.4 mEq/L (3.5-5.1); Sodium 123 mEq/L (136-145); Total Protein 6.8 g/dL (6.4-8.9); Troponin I < 0.03 ng/mL (< 0.04); eGFR For African Americans 50 (> 60); eGFR For Non-African Americans 41 (> 60)
[2020-02-15 19:27] LABS: Adenovirus Not Detected (Not Detect); Bordetella Pertussis Not Detected (Not Detect); Chlamydophila pneumoniae Not Detected (Not Detect); Coronavirus 229E Not Detected (Not Detect); Coronavirus HKU1 Not Detected (Not Detect); Coronavirus NL63 Not Detected (Not Detect); Coronavirus OC43 Not Detected (Not Detect); Human Metapneumovirus Not Detected (Not Detect); Human Rhinovirus/Enterovirus DETECTED (Not Detect); Influenza A Subtype 2009 H1 Not Detected (Not Detect); Influenza B Not Detected (Not Detect); Mycoplasma pneumoniae Not Detected (Not Detect); Parainfluenza Virus 1 Not Detected (Not Detect); Parainfluenza Virus 2 Not Detected (Not Detect); Parainfluenza Virus 3 Not Detected (Not Detect); Parainfluenza Virus 4 Not Detected (Not Detect); Respiratory Syncytial Virus Not Detected (Not Detect); SARS-CoV-2 Not Detected (Not Detect)
[2020-02-15] MEDS ORDERED: Naloxone 0.4 MG/ML INJ IVP PRN (21:24)
[2020-02-15] MEDS ORDERED: Acetaminophen 325 MG TABLET PO PRN (21:24)
[2020-02-15] MEDS ORDERED: *HR* Promethazine 25 MG/ML VIAL IVP PRN (21:24)
[2020-02-15] MEDS ORDERED: Furosemide 20 MG/2 ML VIAL IVP ONE (21:28)
[2020-02-15 21:46] LABS: Chol/HDL Ratio 4.3 (0-4.9); Cholesterol 147 mg/dL (< 200); HDL Cholesterol 34 mg/dL (40-59); LDL Cholesterol,Calculated 92 mg/dL (< 100); Triglycerides 103 mg/dL (< 150)
[2020-02-15] MEDS ORDERED: Perflutren Lipid Microsphere 1.3 ML in 0.9 % Sodium Chloride 8.7 ML IVP PRN (22:33)
[2020-02-15] MEDS ORDERED: Fluticasone Propionate Nasal 50 MCG/SPRAY BOTTLE NS PRN (22:42)
[2020-02-15] MEDS ORDERED: Dextrose Gel 15 GM/37.5 ML TUBE PO PRN ×2 (23:07)
[2020-02-15] MEDS ORDERED: D5% in Water 1,000 ML IVC PRN (23:07)
[2020-02-15] MEDS ORDERED: *HR* Dextrose 50 % in Water (Vial) 50 ML VIAL IVP PRN (23:07)
[2020-02-15] MEDS ORDERED: 0.9 % Sodium Chloride 250 ML ONE (23:35)
[2020-02-15] MEDS: Pantoprazole 40 MG VIAL IVP SCH (23:51)
[2020-02-15] MEDS: Insulin LISPRO 300 UNITS/3 ML VIAL SQ SCH (23:53)
[2020-02-16] MEDS: *HR* HYDROcodone/Acet 5/325 mg TABLET PO PRN (00:50)
[2020-02-16] MEDS: Ipratropium/Albuterol Neb 3 ML IH PRN ×4 (00:55→23:10)
[2020-02-16 02:07] LABS: Bilirubin,Urine Negative (Negative); Blood,Urine Negative (Negative); Clarity,Urine Clear (Clear); Color,Urine Light-Yellow (Yellow); Glucose,Urine (UA) Normal (Normal); Ketones,Urine Negative (Negative); Leukocyte Esterase,Urine Negative (Negative); Nitrite,Urine Negative (Negative); PH,Urine 5.5 pH Units (5.0-8.0); Protein,Urine Negative (Neg-Trace); Specific Gravity,Urine 1.012 (1.010-1.025); Urobilinogen,Urine Normal (Normal)
[2020-02-16] MEDS: Pantoprazole 40 MG VIAL IVP SCH (05:31)
[2020-02-16 05:44] LABS: Basophils % 0.1 %; Hematocrit 24.1 % (37.5-50.1); Hemoglobin 7.6 g/dL (12.9-16.9); INR 1.9; Immature Granulocytes % 0.6 % (0-4); Lymphocytes # 0.2 K/mcL (0.6-4.6); Lymphocytes % 2.1 %; Mean Corpuscular HGB Conc 31.5 g/dL (31.6-35.5); Mean Corpuscular Hemoglobin 29.5 pg (28.0-33.3); Mean Corpuscular Volume 93.4 fL (83.0-100.0); Mean Platelet Volume 10.2 fL (9.4-12.4); Monocytes % 0.6 %; Neutrophils # 6.9 K/mcL (1.6-8.9); Platelet Count 184 K/mcL (140-400); Prothrombin Time 21.2 Seconds (9.4-12.1); Red Blood Count 2.58 M/mcL (4.19-5.50); Segmented Neutrophils % 96.6 %; White Blood Count 7.1 K/mcL (4.3-11.1)
[2020-02-16 06:01] LABS: Magnesium 2.3 mg/dL (1.6-2.6); Phosphorous 5.7 mg/dL (2.7-4.5)
[2020-02-16 06:02] LABS: Calcium 9.4 mg/dL (8.6-10.3); Potassium 5.5 mEq/L (3.5-5.1)
[2020-02-16 06:10] LABS: Anisocytosis 1+ (Not Present); Platelet Estimate Normal (Normal)
[2020-02-16] MEDS: Loratadine 10 MG TABLET PO SCH (09:56)
[2020-02-16] MEDS: Insulin LISPRO 300 UNITS/3 ML VIAL SQ SCH ×3 (09:56→17:37)
[2020-02-16] MEDS: Gabapentin 100 MG CAPSULE PO SCH ×2 (09:57→20:12)
[2020-02-16] MEDS: Furosemide 40 MG/4 ML VIAL IVP SCH ×2 (09:57→20:12)
[2020-02-16] MEDS: MethylPREDNISolone 40 MG/ML VIAL IVP SCH ×2 (13:13→20:12)
[2020-02-16] MEDS: Azithromycin 250 MG TABLET PO SCH (13:13)
[2020-02-16 15:07] LABS: Hematocrit 23.2 % (37.5-50.1); Hemoglobin 7.4 g/dL (12.9-16.9)
[2020-02-16 15:24] LABS: Calcium 9.5 mg/dL (8.6-10.3); Potassium 5.1 mEq/L (3.5-5.1)
[2020-02-17] MEDS: *HR* HYDROcodone/Acet 5/325 mg TABLET PO PRN (02:56)
[2020-02-17 05:28] LABS: Hematocrit 21.2 % (37.5-50.1); Hemoglobin 6.6 g/dL (12.9-16.9); Immature Granulocytes % 0.6 % (0-4); Lymphocytes # 0.2 K/mcL (0.6-4.6); Lymphocytes % 5.8 %; Mean Corpuscular HGB Conc 31.1 g/dL (31.6-35.5); Mean Corpuscular Hemoglobin 28.9 pg (28.0-33.3); Mean Platelet Volume 10.3 fL (9.4-12.4); Monocytes # 0.1 K/mcL (0.0-1.3); Monocytes % 3.8 %; Neutrophils # 2.8 K/mcL (1.6-8.9); Platelet Count 178 K/mcL (140-400); Red Blood Count 2.28 M/mcL (4.19-5.50); Red Cell Distribution Width 15.2 % (11.5-14.5); Segmented Neutrophils % 89.8 %
[2020-02-17 05:36] LABS: BUN/Creatinine Ratio 37 (6-26); Blood Urea Nitrogen 54 mg/dL (6-20); Calcium 9.3 mg/dL (8.6-10.3); Carbon Dioxide 25 mEq/L (23-29); Chloride 92 mEq/L (98-107); Glucose 132 mg/dL (70-105); Magnesium 2.3 mg/dL (1.6-2.6); Osmolality,Calculated 281 (280-300); Phosphorous 4.8 mg/dL (2.7-4.5); Sodium 127 mEq/L (136-145); eGFR For African Americans > 60 (> 60); eGFR For Non-African Americans 50 (> 60)
[2020-02-17 05:49] LABS: White Blood Count 3.1 K/mcL (4.3-11.1)
[2020-02-17] MEDS: Pantoprazole 40 MG VIAL IVP SCH (05:57)
[2020-02-17 07:12] LABS: Platelet Estimate Normal (Normal)
[2020-02-17] MEDS ORDERED: 0.9 % Sodium Chloride 250 ML ONE (07:30)
[2020-02-17] MEDS: Cholecalciferol (D-3) 1,000 UNIT (25MCG) TABLET PO SCH (07:57)
[2020-02-17] MEDS: Multivit/Ca/Min/Fe/FA 1 TAB TABLET PO SCH (07:57)
[2020-02-17] MEDS: Azithromycin 250 MG TABLET PO SCH (07:58)
[2020-02-17] MEDS: Furosemide 40 MG/4 ML VIAL IVP SCH ×2 (07:58→21:25)
[2020-02-17] MEDS: Loratadine 10 MG TABLET PO SCH (07:58)
[2020-02-17] MEDS: Folic Acid 1 MG TABLET PO SCH (07:58)
[2020-02-17] MEDS: Gabapentin 100 MG CAPSULE PO SCH ×2 (07:58→21:24)
[2020-02-17] MEDS: Insulin LISPRO 300 UNITS/3 ML VIAL SQ SCH ×3 (07:58→16:35)
[2020-02-17] MEDS: Octreotide 400 MCG in 0.9 % Sodium Chloride 100 ML IVC SCH ×2 (12:08→21:27)
[2020-02-17] MEDS: MethylPREDNISolone 40 MG/ML VIAL IVP SCH ×2 (12:08→21:25)
[2020-02-17] MEDS: Pantoprazole 40 MG in 0.9 % Sodium Chloride Mini Bag 100 ML IVC SCH ×3 (12:09→21:26)
[2020-02-17] MEDS: cefTRIAXone 1,000 MG in 0.9 % Sodium Chloride Mini Bag 100 ML IVPB SCH (12:09)
[2020-02-17] MEDS: Metoprolol XL (24 HR) Succ 25 MG TAB.ER.24H PO SCH (13:46)
[2020-02-17 15:26] LABS: Hematocrit 26.1 % (37.5-50.1)
[2020-02-17 15:30] LABS: Hemoglobin 8.3 g/dL (12.9-16.9)
[2020-02-18] MEDS: Pantoprazole 40 MG in 0.9 % Sodium Chloride Mini Bag 100 ML IVC SCH (06:09)
[2020-02-18 06:12] LABS: Hematocrit 25.6 % (37.5-50.1); Hemoglobin 8.1 g/dL (12.9-16.9); Immature Granulocytes % 1.3 % (0-4); Lymphocytes # 0.2 K/mcL (0.6-4.6); Lymphocytes % 6.3 %; Mean Corpuscular HGB Conc 31.6 g/dL (31.6-35.5); Mean Corpuscular Hemoglobin 28.8 pg (28.0-33.3); Mean Corpuscular Volume 91.1 fL (83.0-100.0); Mean Platelet Volume 9.9 fL (9.4-12.4); Monocytes # 0.1 K/mcL (0.0-1.3); Monocytes % 4.4 %; Neutrophils # 2.8 K/mcL (1.6-8.9); Platelet Count 182 K/mcL (140-400); Red Blood Count 2.81 M/mcL (4.19-5.50); White Blood Count 3.2 K/mcL (4.3-11.1)
[2020-02-18 06:21] LABS: BUN/Creatinine Ratio 40 (6-26); Blood Urea Nitrogen 52 mg/dL (6-20); Calcium 9.3 mg/dL (8.6-10.3); Carbon Dioxide 28 mEq/L (23-29); Chloride 94 mEq/L (98-107); Glucose 170 mg/dL (70-105); Osmolality,Calculated 288 (280-300); Potassium 4.6 mEq/L (3.5-5.1); Sodium 130 mEq/L (136-145); eGFR For African Americans > 60 (> 60); eGFR For Non-African Americans 56 (> 60)
[2020-02-18] MEDS: Insulin LISPRO 300 UNITS/3 ML VIAL SQ SCH ×3 (07:53→16:16)
[2020-02-18] MEDS: Furosemide 40 MG/4 ML VIAL IVP SCH ×2 (07:55→21:53)
[2020-02-18] MEDS: Folic Acid 1 MG TABLET PO SCH (07:55)
[2020-02-18] MEDS: Spironolactone 25 MG TABLET PO SCH (07:55)
[2020-02-18] MEDS: Azithromycin 250 MG TABLET PO SCH (07:55)
[2020-02-18] MEDS: Multivit/Ca/Min/Fe/FA 1 TAB TABLET PO SCH (07:55)
[2020-02-18] MEDS: Gabapentin 100 MG CAPSULE PO SCH ×2 (07:55→21:54)
[2020-02-18] MEDS: Cholecalciferol (D-3) 1,000 UNIT (25MCG) TABLET PO SCH (07:55)
[2020-02-18] MEDS: Loratadine 10 MG TABLET PO SCH (07:56)
[2020-02-18] MEDS: Metoprolol XL (24 HR) Succ 25 MG TAB.ER.24H PO SCH (07:56)
[2020-02-18] MEDS: cefTRIAXone 1,000 MG in 0.9 % Sodium Chloride Mini Bag 100 ML IVPB SCH (07:56)
[2020-02-18] MEDS: Octreotide 400 MCG in 0.9 % Sodium Chloride 100 ML IVC SCH (07:57)
[2020-02-18] MEDS ORDERED: Albuterol 2.5 MG/3 ML NEBULIZER ONE (08:35)
[2020-02-18] MEDS ORDERED: Albuterol 2.5 MG/3 ML NEBULIZER IH ONE (08:44)
[2020-02-18] MEDS ORDERED: *HR* Propofol 200 MG/20 ML VIAL IVP ONE (08:56)
[2020-02-18] MEDS ORDERED: Lidocaine -MPF 2% 2 ML VIAL ONE (08:57)
[2020-02-18] MEDS: MethylPREDNISolone 40 MG/ML VIAL IVP SCH ×2 (10:41→21:53)
[2020-02-18] MEDS: *HR* HYDROcodone/Acet 5/325 mg TABLET PO PRN (22:09)
[2020-02-19 02:58] LABS: Hematocrit 26.3 % (37.5-50.1); Hemoglobin 8.1 g/dL (12.9-16.9); Immature Granulocytes % 0.6 % (0-4); Lymphocytes # 0.2 K/mcL (0.6-4.6); Lymphocytes % 4.6 %; Mean Corpuscular HGB Conc 30.8 g/dL (31.6-35.5); Mean Corpuscular Hemoglobin 28.7 pg (28.0-33.3); Mean Corpuscular Volume 93.3 fL (83.0-100.0); Mean Platelet Volume 9.8 fL (9.4-12.4); Monocytes # 0.1 K/mcL (0.0-1.3); Monocytes % 2.3 %; Neutrophils # 3.2 K/mcL (1.6-8.9); Platelet Count 176 K/mcL (140-400); Red Blood Count 2.82 M/mcL (4.19-5.50); Red Cell Distribution Width 15.9 % (11.5-14.5); Segmented Neutrophils % 92.5 %; White Blood Count 3.5 K/mcL (4.3-11.1)
[2020-02-19 03:23] LABS: BUN/Creatinine Ratio 42 (6-26); Blood Urea Nitrogen 50 mg/dL (6-20); Calcium 9.1 mg/dL (8.6-10.3); Carbon Dioxide 27 mEq/L (23-29); Chloride 95 mEq/L (98-107); Glucose 165 mg/dL (70-105); Osmolality,Calculated 289 (280-300); Potassium 4.4 mEq/L (3.5-5.1); Sodium 131 mEq/L (136-145); eGFR For African Americans > 60 (> 60); eGFR For Non-African Americans > 60 (> 60)
[2020-02-19 03:54] LABS: Platelet Estimate Normal (Normal)
[2020-02-19] MEDS: Metoprolol XL (24 HR) Succ 25 MG TAB.ER.24H PO SCH (09:07)
[2020-02-19] MEDS: Gabapentin 100 MG CAPSULE PO SCH (09:07)
[2020-02-19] MEDS: Cholecalciferol (D-3) 1,000 UNIT (25MCG) TABLET PO SCH (09:08)
[2020-02-19] MEDS: Azithromycin 250 MG TABLET PO SCH (09:08)
[2020-02-19] MEDS: MethylPREDNISolone 40 MG/ML VIAL IVP SCH (09:08)
[2020-02-19] MEDS: Loratadine 10 MG TABLET PO SCH (09:08)
[2020-02-19] MEDS: Multivit/Ca/Min/Fe/FA 1 TAB TABLET PO SCH (09:08)
[2020-02-19] MEDS: Spironolactone 25 MG TABLET PO SCH (09:08)
[2020-02-19] MEDS: Folic Acid 1 MG TABLET PO SCH (09:08)
[2020-02-19] MEDS: Furosemide 40 MG/4 ML VIAL IVP SCH (09:08)
[2020-02-19] MEDS: Insulin LISPRO 300 UNITS/3 ML VIAL SQ SCH (09:10)
[2020-02-19 12:38] VITALS: BP 124/72
== END 2020-02-19 13:12 | disposition home health service (06) | DRG 194 ==
LOC: EMEROOARM 16:28 → 2ANU 16:28 → SUATTDRO 20:53 → 2ANU 21:54
PROVIDERS: ADMIT Family Medicine; ATTEND Family Medicine

== ENCOUNTER 2020-05-07 21:43 | Inpatient (IN) ==
[2020-05-07] MEDS ORDERED: Ipratropium/Albuterol Neb 3 ML IH ONE (21:45)
[2020-05-07 22:27] LABS: Basophils % 0.5 %; Eosinophils % 0.1 %; Hematocrit 26.1 % (37.5-50.1); Hemoglobin 8.3 g/dL (12.9-16.9); Immature Granulocytes % 0.3 % (0-4); Lymphocytes # 0.5 K/mcL (0.6-4.6); Lymphocytes % 6.1 %; Mean Corpuscular HGB Conc 31.8 g/dL (31.6-35.5); Mean Corpuscular Hemoglobin 28.1 pg (28.0-33.3); Mean Corpuscular Volume 88.5 fL (83.0-100.0); Mean Platelet Volume 10.7 fL (9.4-12.4); Monocytes # 0.7 K/mcL (0.0-1.3); Neutrophils # 7.5 K/mcL (1.6-8.9); Platelet Count 217 K/mcL (140-400); Red Blood Count 2.95 M/mcL (4.19-5.50); Red Cell Distribution Width 15.2 % (11.5-14.5); White Blood Count 8.9 K/mcL (4.3-11.1)
[2020-05-07 22:33] LABS: INR 1.1; Prothrombin Time 13.1 Seconds (9.4-12.1)
[2020-05-07 22:36] LABS: VBG HCO3 26 mEq/L (21-27); VBG PCO2 51 mmHg (41-51); VBG PH 7.32 pH Units (7.32-7.42); VBG PO2 43 mmHg (25-50)
[2020-05-07 22:53] LABS: Albumin 3.8 g/dL (3.5-5.7); Albumin/Globulin Ratio 1.1 (1.1-2.2); Bilirubin,Direct 0.2 mg/dL (0.0-0.2); Bilirubin,Indirect 0.5 mg/dL (0.0-1.0); Bilirubin,Total 0.7 mg/dL (0.3-1.0); Globulin 3.4 g/dL (2.4-3.5); Magnesium 2.1 mg/dL (1.6-2.6); Phosphorous 3.8 mg/dL (2.7-4.5); Potassium 3.7 mEq/L (3.5-5.1); Total Protein 7.2 g/dL (6.4-8.9); Troponin I 0.08 ng/mL (< 0.04)
[2020-05-07] MEDS ORDERED: Furosemide 40 MG/4 ML VIAL IVP ONE (23:36)
[2020-05-07 23:59] LABS: Adenovirus Not Detected (Not Detect); Coronavirus 229E Not Detected (Not Detect); Coronavirus HKU1 Not Detected (Not Detect); Coronavirus NL63 Not Detected (Not Detect); Coronavirus OC43 Not Detected (Not Detect); Human Metapneumovirus Not Detected (Not Detect); Human Rhinovirus/Enterovirus Not Detected (Not Detect); Influenza A Subtype 2009 H1 Not Detected (Not Detect); Influenza B Not Detected (Not Detect); Parainfluenza Virus 1 Not Detected (Not Detect); Parainfluenza Virus 2 Not Detected (Not Detect); Parainfluenza Virus 3 Not Detected (Not Detect); Parainfluenza Virus 4 Not Detected (Not Detect); SARS-CoV-2 Not Detected (Not Detect)
[2020-05-08] LABS: Bordetella Pertussis Not Detected (Not Detect); Chlamydophila pneumoniae Not Detected (Not Detect); Mycoplasma pneumoniae Not Detected (Not Detect); Respiratory Syncytial Virus Not Detected (Not Detect)
[2020-05-08] MEDS ORDERED: Ondansetron ODT 4 MG TAB.RAPDIS SL PRN (00:28)
[2020-05-08] MEDS ORDERED: Acetaminophen 325 MG TABLET PO PRN (00:28)
[2020-05-08] MEDS ORDERED: Aspirin 325 MG TABLET PO ONE (00:32)
[2020-05-08] MEDS ORDERED: D5% in Water 1,000 ML IVC PRN (01:21)
[2020-05-08] MEDS ORDERED: Dextrose Gel 15 GM/37.5 ML TUBE PO PRN ×2 (01:21)
[2020-05-08] MEDS ORDERED: *HR* Dextrose 50 % in Water (Vial) 50 ML VIAL IVP PRN (01:21)
[2020-05-08 03:21] LABS: Hematocrit 26.7 % (37.5-50.1); Hemoglobin 8.3 g/dL (12.9-16.9); Mean Corpuscular HGB Conc 31.1 g/dL (31.6-35.5); Mean Corpuscular Hemoglobin 27.4 pg (28.0-33.3); Mean Corpuscular Volume 88.1 fL (83.0-100.0); Mean Platelet Volume 10.6 fL (9.4-12.4); Platelet Count 212 K/mcL (140-400); Red Blood Count 3.03 M/mcL (4.19-5.50); Red Cell Distribution Width 15.2 % (11.5-14.5); White Blood Count 9.6 K/mcL (4.3-11.1)
[2020-05-08 03:47] LABS: Calcium 9.5 mg/dL (8.6-10.3); Potassium 3.8 mEq/L (3.5-5.1); Troponin I 0.08 ng/mL (< 0.04)
[2020-05-08 04:29] LABS: Bilirubin,Urine Negative (Negative); Blood,Urine Negative (Negative); Clarity,Urine Clear (Clear); Color,Urine Light-Yellow (Yellow); Glucose,Urine (UA) Normal (Normal); Ketones,Urine Negative (Negative); Leukocyte Esterase,Urine Negative (Negative); Nitrite,Urine Negative (Negative); PH,Urine 5.5 pH Units (5.0-8.0); Protein,Urine Negative (Neg-Trace); Specific Gravity,Urine 1.012 (1.010-1.025); Urobilinogen,Urine Normal (Normal)
[2020-05-08] MEDS: *HR* Heparin 5,000 UNIT/ML VIAL SQ SCH ×3 (04:49→21:07)
[2020-05-08] MEDS: Insulin LISPRO 300 UNITS/3 ML VIAL SQ SCH ×4 (08:07→21:08)
[2020-05-08] MEDS ORDERED: Lactulose Oral Soln 20 GM/30 ML UDC PO ONE (08:48)
[2020-05-08] MEDS: Furosemide 40 MG/4 ML VIAL IVP SCH ×2 (10:42→16:57)
[2020-05-08] MEDS ORDERED: *HR* LORazepam 2 MG/ML VIAL IM PRN ×3 (10:59)
[2020-05-08] MEDS: Lactulose Oral Soln 20 GM/30 ML UDC PO SCH (18:27)
[2020-05-08] MEDS ORDERED: Lactulose Oral Soln 20 GM/30 ML UDC PO SCH (21:00)
[2020-05-08] MEDS: Ipratropium/Albuterol Neb 3 ML IH PRN (21:41)
[2020-05-08] MEDS: *HR* HYDROcodone/Acet 7.5/325 mg TABLET PO PRN (22:32)
[2020-05-08] MEDS: Gabapentin 100 MG CAPSULE PO SCH (22:33)
[2020-05-09] MEDS: *HR* Heparin 5,000 UNIT/ML VIAL SQ SCH ×3 (04:53→21:03)
[2020-05-09] MEDS: *HR* HYDROcodone/Acet 7.5/325 mg TABLET PO PRN ×2 (04:54→21:02)
[2020-05-09 07:10] LABS: Basophils % 0.4 %; Eosinophils # 0.2 K/mcL (0.0-0.6); Eosinophils % 2.3 %; Hematocrit 23.2 % (37.5-50.1); Hemoglobin 7.4 g/dL (12.9-16.9); Immature Granulocytes % 0.4 % (0-4); Lymphocytes # 0.7 K/mcL (0.6-4.6); Lymphocytes % 9.8 %; Mean Corpuscular HGB Conc 31.9 g/dL (31.6-35.5); Mean Corpuscular Volume 87.9 fL (83.0-100.0); Mean Platelet Volume 10.3 fL (9.4-12.4); Monocytes # 0.7 K/mcL (0.0-1.3); Monocytes % 9.8 %; Neutrophils # 5.3 K/mcL (1.6-8.9); Platelet Count 193 K/mcL (140-400); Red Blood Count 2.64 M/mcL (4.19-5.50); Red Cell Distribution Width 15.2 % (11.5-14.5); Segmented Neutrophils % 77.3 %; White Blood Count 6.9 K/mcL (4.3-11.1)
[2020-05-09 07:43] LABS: Albumin 3.5 g/dL (3.5-5.7); Albumin/Globulin Ratio 1.2 (1.1-2.2); Bilirubin,Total 0.8 mg/dL (0.3-1.0); Potassium 3.8 mEq/L (3.5-5.1); Total Protein 6.5 g/dL (6.4-8.9)
[2020-05-09] MEDS: Insulin LISPRO 300 UNITS/3 ML VIAL SQ SCH ×4 (08:41→21:03)
[2020-05-09] MEDS: Lactulose Oral Soln 20 GM/30 ML UDC PO SCH ×3 (08:58→21:03)
[2020-05-09] MEDS: Aspirin 81 MG TAB.CHEW PO SCH (08:58)
[2020-05-09] MEDS: Furosemide 40 MG/4 ML VIAL IVP SCH ×2 (08:58→16:42)
[2020-05-09] MEDS: Gabapentin 100 MG CAPSULE PO SCH ×2 (08:58→21:02)
[2020-05-10 02:41] LABS: Basophils % 0.5 %; Eosinophils # 0.1 K/mcL (0.0-0.6); Eosinophils % 2.2 %; Hematocrit 24.1 % (37.5-50.1); Hemoglobin 7.5 g/dL (12.9-16.9); Immature Granulocytes % 0.3 % (0-4); Lymphocytes # 0.6 K/mcL (0.6-4.6); Lymphocytes % 9.5 %; Mean Corpuscular HGB Conc 31.1 g/dL (31.6-35.5); Mean Corpuscular Volume 89.9 fL (83.0-100.0); Mean Platelet Volume 10.6 fL (9.4-12.4); Monocytes # 0.6 K/mcL (0.0-1.3); Monocytes % 9.7 %; Neutrophils # 5.1 K/mcL (1.6-8.9); Platelet Count 201 K/mcL (140-400); Red Blood Count 2.68 M/mcL (4.19-5.50); Segmented Neutrophils % 77.8 %; White Blood Count 6.5 K/mcL (4.3-11.1)
[2020-05-10 02:57] LABS: BUN/Creatinine Ratio 33 (6-26); Blood Urea Nitrogen 44 mg/dL (6-20); Calcium 9.1 mg/dL (8.6-10.3); Carbon Dioxide 25 mEq/L (23-29); Chloride 98 mEq/L (98-107); Glucose 80 mg/dL (70-105); Osmolality,Calculated 288 (280-300); Sodium 134 mEq/L (136-145); eGFR For African Americans > 60 (> 60); eGFR For Non-African Americans 54 (> 60)
[2020-05-10] MEDS: *HR* Heparin 5,000 UNIT/ML VIAL SQ SCH ×3 (06:28→21:47)
[2020-05-10] MEDS: *HR* HYDROcodone/Acet 7.5/325 mg TABLET PO PRN ×2 (06:28→14:56)
[2020-05-10] MEDS: Insulin LISPRO 300 UNITS/3 ML VIAL SQ SCH ×3 (08:22→16:15)
[2020-05-10] MEDS: Aspirin 81 MG TAB.CHEW PO SCH (08:27)
[2020-05-10] MEDS: Gabapentin 100 MG CAPSULE PO SCH ×2 (08:27→21:47)
[2020-05-10] MEDS: Lactulose Oral Soln 20 GM/30 ML UDC PO SCH ×3 (08:27→21:46)
[2020-05-10] MEDS: Furosemide 40 MG/4 ML VIAL IVP SCH ×2 (08:27→16:19)
[2020-05-11] MEDS: Insulin LISPRO 300 UNITS/3 ML VIAL SQ SCH ×5 (00:23→19:48)
[2020-05-11] MEDS: Furosemide 40 MG/4 ML VIAL IVP SCH ×2 (07:05→15:22)
[2020-05-11] MEDS: *HR* Heparin 5,000 UNIT/ML VIAL SQ SCH ×3 (07:13→19:47)
[2020-05-11] MEDS: Lactulose Oral Soln 20 GM/30 ML UDC PO SCH ×3 (09:32→19:48)
[2020-05-11] MEDS: Gabapentin 100 MG CAPSULE PO SCH ×2 (09:32→19:47)
[2020-05-11] MEDS: Aspirin 81 MG TAB.CHEW PO SCH (09:32)
[2020-05-11 11:48] LABS: BUN/Creatinine Ratio 32 (6-26); Blood Urea Nitrogen 38 mg/dL (6-20); Calcium 9.2 mg/dL (8.6-10.3); Carbon Dioxide 29 mEq/L (23-29); Chloride 97 mEq/L (98-107); Glucose 115 mg/dL (70-105); Osmolality,Calculated 288 (280-300); Potassium 3.6 mEq/L (3.5-5.1); Sodium 134 mEq/L (136-145); eGFR For African Americans > 60 (> 60); eGFR For Non-African Americans > 60 (> 60)
[2020-05-11 13:35] LABS: Basophils % 0.3 %; Eosinophils # 0.1 K/mcL (0.0-0.6); Eosinophils % 0.7 %; Hematocrit 27.9 % (37.5-50.1); Hemoglobin 8.4 g/dL (12.9-16.9); Immature Granulocytes % 0.3 % (0-4); Lymphocytes # 0.6 K/mcL (0.6-4.6); Mean Corpuscular HGB Conc 30.1 g/dL (31.6-35.5); Mean Corpuscular Hemoglobin 27.5 pg (28.0-33.3); Mean Corpuscular Volume 91.2 fL (83.0-100.0); Monocytes # 0.8 K/mcL (0.0-1.3); Monocytes % 9.3 %; Neutrophils # 7.2 K/mcL (1.6-8.9); Platelet Count 228 K/mcL (140-400); Red Blood Count 3.06 M/mcL (4.19-5.50); Red Cell Distribution Width 15.1 % (11.5-14.5); Segmented Neutrophils % 82.4 %; White Blood Count 8.8 K/mcL (4.3-11.1)
[2020-05-11] MEDS ORDERED: Melatonin 3 MG TABLET PO ONE (21:00)
[2020-05-11 21:06] LABS: ABG Base Excess 3 mEq/L (-2 to 3); ABG HCO3 28 mEq/L (21-27); ABG Oxygen Saturation 95 % (95-98); ABG PCO2 42 mmHg (35-45); ABG PH 7.43 pH Units (7.32-7.45); ABG PO2 72 mmHg (85-104); ABG TCO2 29 mEq/L (20-26)
[2020-05-11] MEDS: Ipratropium/Albuterol Neb 3 ML IH PRN (23:44)
[2020-05-12] MEDS: *HR* Heparin 5,000 UNIT/ML VIAL SQ SCH ×3 (05:45→22:07)
[2020-05-12 06:43] LABS: Basophils % 0.3 %; Eosinophils % 0.5 %; Hematocrit 24.9 % (37.5-50.1); Hemoglobin 7.9 g/dL (12.9-16.9); Immature Granulocytes % 0.2 % (0-4); Lymphocytes # 0.6 K/mcL (0.6-4.6); Lymphocytes % 8.6 %; Mean Corpuscular HGB Conc 31.7 g/dL (31.6-35.5); Mean Corpuscular Hemoglobin 28.3 pg (28.0-33.3); Mean Corpuscular Volume 89.2 fL (83.0-100.0); Mean Platelet Volume 10.2 fL (9.4-12.4); Monocytes # 0.7 K/mcL (0.0-1.3); Monocytes % 11.2 %; Neutrophils # 5.2 K/mcL (1.6-8.9); Platelet Count 180 K/mcL (140-400); Red Blood Count 2.79 M/mcL (4.19-5.50); Red Cell Distribution Width 15.1 % (11.5-14.5); Segmented Neutrophils % 79.2 %; White Blood Count 6.6 K/mcL (4.3-11.1)
[2020-05-12 07:02] LABS: BUN/Creatinine Ratio 32 (6-26); Blood Urea Nitrogen 40 mg/dL (6-20); Calcium 9.3 mg/dL (8.6-10.3); Carbon Dioxide 28 mEq/L (23-29); Chloride 98 mEq/L (98-107); Glucose 124 mg/dL (70-105); Osmolality,Calculated 289 (280-300); Potassium 3.9 mEq/L (3.5-5.1); Sodium 134 mEq/L (136-145); eGFR For African Americans > 60 (> 60); eGFR For Non-African Americans 60 (> 60)
[2020-05-12] MEDS: Insulin LISPRO 300 UNITS/3 ML VIAL SQ SCH ×4 (10:52→22:05)
[2020-05-12] MEDS: Furosemide 40 MG/4 ML VIAL IVP SCH (11:10)
[2020-05-12] MEDS: Gabapentin 100 MG CAPSULE PO SCH ×2 (11:11→22:06)
[2020-05-12] MEDS: Lactulose Oral Soln 20 GM/30 ML UDC PO SCH ×3 (11:11→22:06)
[2020-05-12] MEDS: Aspirin 81 MG TAB.CHEW PO SCH (11:11)
[2020-05-12] MEDS: Furosemide 40 MG TABLET PO SCH (18:31)
[2020-05-13] MEDS: *HR* HYDROcodone/Acet 7.5/325 mg TABLET PO PRN (00:11)
[2020-05-13 05:03] LABS: Basophils % 0.4 %; Eosinophils # 0.2 K/mcL (0.0-0.6); Eosinophils % 3.1 %; Hematocrit 25.2 % (37.5-50.1); Hemoglobin 7.7 g/dL (12.9-16.9); Immature Granulocytes % 0.3 % (0-4); Lymphocytes # 0.7 K/mcL (0.6-4.6); Lymphocytes % 9.5 %; Mean Corpuscular HGB Conc 30.6 g/dL (31.6-35.5); Mean Corpuscular Hemoglobin 27.4 pg (28.0-33.3); Mean Corpuscular Volume 89.7 fL (83.0-100.0); Mean Platelet Volume 10.8 fL (9.4-12.4); Monocytes # 0.8 K/mcL (0.0-1.3); Monocytes % 11.2 %; Neutrophils # 5.3 K/mcL (1.6-8.9); Platelet Count 183 K/mcL (140-400); Red Blood Count 2.81 M/mcL (4.19-5.50); Red Cell Distribution Width 14.9 % (11.5-14.5); Segmented Neutrophils % 75.5 %
[2020-05-13] MEDS: *HR* Heparin 5,000 UNIT/ML VIAL SQ SCH ×3 (05:13→20:11)
[2020-05-13 05:21] LABS: BUN/Creatinine Ratio 30 (6-26); Blood Urea Nitrogen 41 mg/dL (6-20); Calcium 9.1 mg/dL (8.6-10.3); Carbon Dioxide 29 mEq/L (23-29); Chloride 97 mEq/L (98-107); Glucose 137 mg/dL (70-105); Osmolality,Calculated 288 (280-300); Sodium 133 mEq/L (136-145); eGFR For African Americans > 60 (> 60); eGFR For Non-African Americans 54 (> 60)
[2020-05-13] MEDS: Insulin LISPRO 300 UNITS/3 ML VIAL SQ SCH ×4 (09:57→20:10)
[2020-05-13] MEDS: Gabapentin 100 MG CAPSULE PO SCH ×2 (10:01→20:11)
[2020-05-13] MEDS: Lactulose Oral Soln 20 GM/30 ML UDC PO SCH ×3 (10:01→20:11)
[2020-05-13] MEDS: Aspirin 81 MG TAB.CHEW PO SCH (10:02)
[2020-05-13] MEDS: Furosemide 40 MG TABLET PO SCH (10:02)
[2020-05-13] MEDS: Furosemide 40 MG/4 ML VIAL IVP SCH ×2 (10:18→20:10)
[2020-05-14 02:12] LABS: Basophils % 0.3 %; Eosinophils % 0.5 %; Hematocrit 25.3 % (37.5-50.1); Immature Granulocytes % 0.3 % (0-4); Lymphocytes # 0.6 K/mcL (0.6-4.6); Lymphocytes % 8.7 %; Mean Corpuscular HGB Conc 31.6 g/dL (31.6-35.5); Mean Corpuscular Hemoglobin 28.6 pg (28.0-33.3); Mean Corpuscular Volume 90.4 fL (83.0-100.0); Mean Platelet Volume 11.2 fL (9.4-12.4); Monocytes # 0.7 K/mcL (0.0-1.3); Monocytes % 9.5 %; Platelet Count 183 K/mcL (140-400); Red Cell Distribution Width 15.1 % (11.5-14.5); Segmented Neutrophils % 80.7 %; White Blood Count 7.4 K/mcL (4.3-11.1)
[2020-05-14 02:32] LABS: BUN/Creatinine Ratio 30 (6-26); Blood Urea Nitrogen 42 mg/dL (6-20); Calcium 9.3 mg/dL (8.6-10.3); Carbon Dioxide 29 mEq/L (23-29); Chloride 97 mEq/L (98-107); Glucose 117 mg/dL (70-105); Osmolality,Calculated 290 (280-300); Sodium 134 mEq/L (136-145); eGFR For African Americans > 60 (> 60); eGFR For Non-African Americans 52 (> 60)
[2020-05-14] MEDS: *HR* Heparin 5,000 UNIT/ML VIAL SQ SCH ×3 (06:14→21:00)
[2020-05-14] MEDS: Insulin LISPRO 300 UNITS/3 ML VIAL SQ SCH ×4 (07:29→20:54)
[2020-05-14] MEDS ORDERED: Lactulose Oral Soln 20 GM/30 ML UDC PO ONE (07:50)
[2020-05-14] MEDS: Lactulose Oral Soln 20 GM/30 ML UDC PO SCH ×4 (08:12→21:01)
[2020-05-14] MEDS: Gabapentin 100 MG CAPSULE PO SCH ×2 (08:12→21:00)
[2020-05-14] MEDS: Aspirin 81 MG TAB.CHEW PO SCH (08:12)
[2020-05-14] MEDS: Furosemide 40 MG/4 ML VIAL IVP SCH ×2 (08:13→21:00)
[2020-05-14] MEDS ORDERED: *HR* LORazepam 2 MG/ML VIAL IVP ONE (12:40)
[2020-05-14 18:00] LABS: Campylobacter by PCR Not detected (Not detect)
[2020-05-14 18:01] LABS: Adenovirus F 40/41 PCR Not detected (Not detect); Astrovirus PCR Not detected (Not detect); C.difficile Toxin A/B Gene PCR DETECTED (Not detect); Cryptosporidium by PCR Not detected (Not detect); Cyclospora cayetanensis PCR Not detected (Not detect); E. coli O157 by PCR Not detected (Not detect); Entamoeba histolytica PCR Not detected (Not detect); Enteroaggregative E.coli(EAEC) Not detected (Not detect); Enteropathogenic E.coli(EPEC) Not detected (Not detect); Enterotoxigenic E.coli (ETEC) Not detected (Not detect); Giardia lamblia PCR Not detected (Not detect); Norovirus GI/GII PCR Not detected (Not detect); Plesiomonas shigelloides PCR Not detected (Not detect); Rotavirus A PCR Not detected (Not detect); Salmonella PCR Not detected (Not detect); Sapovirus PCR Not detected (Not detect); Shig/EnteroinvasiveE coli EIEC Not detected (Not detect); Shigalike tox-prod E coli STEC Not detected (Not detect); Vibrio PCR Not detected (Not detect); Vibrio cholerae PCR Not detected (Not detect); Yersinia enterocolitica PCR Not detected (Not detect)
[2020-05-14] MEDS: metroNIDAZOLE 500 MG TABLET PO SCH (21:00)
[2020-05-15] MEDS: *HR* Heparin 5,000 UNIT/ML VIAL SQ SCH ×3 (05:24→20:56)
[2020-05-15 06:56] LABS: Basophils % 0.4 %; Eosinophils # 0.1 K/mcL (0.0-0.6); Eosinophils % 1.9 %; Hematocrit 26.4 % (37.5-50.1); Immature Granulocytes % 0.3 % (0-4); Lymphocytes # 0.6 K/mcL (0.6-4.6); Mean Corpuscular HGB Conc 30.3 g/dL (31.6-35.5); Mean Corpuscular Hemoglobin 27.2 pg (28.0-33.3); Mean Corpuscular Volume 89.8 fL (83.0-100.0); Mean Platelet Volume 11.2 fL (9.4-12.4); Monocytes # 0.7 K/mcL (0.0-1.3); Monocytes % 10.1 %; Neutrophils # 5.5 K/mcL (1.6-8.9); Platelet Count 194 K/mcL (140-400); Red Blood Count 2.94 M/mcL (4.19-5.50); Red Cell Distribution Width 15.2 % (11.5-14.5); Segmented Neutrophils % 78.3 %
[2020-05-15 07:16] LABS: BUN/Creatinine Ratio 31 (6-26); Blood Urea Nitrogen 39 mg/dL (6-20); Calcium 9.2 mg/dL (8.6-10.3); Carbon Dioxide 30 mEq/L (23-29); Chloride 96 mEq/L (98-107); Glucose 132 mg/dL (70-105); Osmolality,Calculated 289 (280-300); Sodium 134 mEq/L (136-145); eGFR For African Americans > 60 (> 60); eGFR For Non-African Americans 59 (> 60)
[2020-05-15] MEDS: Insulin LISPRO 300 UNITS/3 ML VIAL SQ SCH ×4 (08:06→20:58)
[2020-05-15] MEDS: Gabapentin 100 MG CAPSULE PO SCH ×2 (09:04→20:56)
[2020-05-15] MEDS: Furosemide 40 MG/4 ML VIAL IVP SCH ×2 (09:04→20:56)
[2020-05-15] MEDS: metroNIDAZOLE 500 MG TABLET PO SCH (09:04)
[2020-05-15] MEDS: Aspirin 81 MG TAB.CHEW PO SCH (09:04)
[2020-05-15] MEDS: Lactulose Oral Soln 20 GM/30 ML UDC PO SCH ×3 (09:04→20:58)
[2020-05-15] MEDS: Vancomycin Oral Soln 125 MG/2.5 ML UDC PO SCH ×3 (11:51→20:57)
[2020-05-16] MEDS: *HR* HYDROcodone/Acet 7.5/325 mg TABLET PO PRN (04:56)
[2020-05-16] MEDS: *HR* Heparin 5,000 UNIT/ML VIAL SQ SCH ×3 (04:56→20:31)
[2020-05-16 07:52] LABS: Basophils % 0.4 %; Eosinophils # 0.1 K/mcL (0.0-0.6); Eosinophils % 0.7 %; Hematocrit 25.1 % (37.5-50.1); Hemoglobin 7.7 g/dL (12.9-16.9); Immature Granulocytes % 0.3 % (0-4); Lymphocytes # 0.5 K/mcL (0.6-4.6); Lymphocytes % 7.1 %; Mean Corpuscular HGB Conc 30.7 g/dL (31.6-35.5); Mean Corpuscular Hemoglobin 27.9 pg (28.0-33.3); Mean Corpuscular Volume 90.9 fL (83.0-100.0); Mean Platelet Volume 11.4 fL (9.4-12.4); Monocytes % 12.9 %; Neutrophils # 5.9 K/mcL (1.6-8.9); Platelet Count 186 K/mcL (140-400); Red Blood Count 2.76 M/mcL (4.19-5.50); Red Cell Distribution Width 15.2 % (11.5-14.5); Segmented Neutrophils % 78.6 %; White Blood Count 7.5 K/mcL (4.3-11.1)
[2020-05-16 08:03] LABS: BUN/Creatinine Ratio 32 (6-26); Blood Urea Nitrogen 39 mg/dL (6-20); Carbon Dioxide 28 mEq/L (23-29); Chloride 97 mEq/L (98-107); Glucose 107 mg/dL (70-105); Osmolality,Calculated 286 (280-300); Potassium 4.1 mEq/L (3.5-5.1); Sodium 133 mEq/L (136-145); eGFR For African Americans > 60 (> 60); eGFR For Non-African Americans > 60 (> 60)
[2020-05-16] MEDS ORDERED: Furosemide 40 MG TABLET PO SCH (08:30)
[2020-05-16] MEDS: Insulin LISPRO 300 UNITS/3 ML VIAL SQ SCH ×4 (09:09→20:54)
[2020-05-16] MEDS: Gabapentin 100 MG CAPSULE PO SCH ×2 (09:16→20:30)
[2020-05-16] MEDS: Vancomycin Oral Soln 125 MG/2.5 ML UDC PO SCH ×4 (09:16→20:30)
[2020-05-16] MEDS: Lactulose Oral Soln 20 GM/30 ML UDC PO SCH ×3 (09:16→20:30)
[2020-05-16] MEDS: Aspirin 81 MG TAB.CHEW PO SCH (09:17)
[2020-05-16] MEDS ORDERED: Albumin 25% 25gram/100mL 25 GM/100 ML IV.SOLN IVPB ONE (10:59)
[2020-05-16] MEDS: *HR* LORazepam 0.5 MG TABLET PO PRN (15:52)
[2020-05-16] MEDS: Furosemide 40 MG/4 ML VIAL IVP SCH (20:30)
[2020-05-16] MEDS: Albumin 25% 25gram/100mL 25 GM/100 ML IV.SOLN IVPB SCH (22:33)
[2020-05-17 03:26] LABS: Basophils % 0.5 %; Eosinophils # 0.1 K/mcL (0.0-0.6); Eosinophils % 0.7 %; Hematocrit 26.2 % (37.5-50.1); Hemoglobin 7.9 g/dL (12.9-16.9); Immature Granulocytes % 0.3 % (0-4); Lymphocytes # 0.6 K/mcL (0.6-4.6); Lymphocytes % 8.4 %; Mean Corpuscular HGB Conc 30.2 g/dL (31.6-35.5); Mean Corpuscular Hemoglobin 27.5 pg (28.0-33.3); Mean Corpuscular Volume 91.3 fL (83.0-100.0); Mean Platelet Volume 11.2 fL (9.4-12.4); Monocytes # 0.7 K/mcL (0.0-1.3); Monocytes % 8.6 %; Neutrophils # 6.2 K/mcL (1.6-8.9); Platelet Count 187 K/mcL (140-400); Red Blood Count 2.87 M/mcL (4.19-5.50); Segmented Neutrophils % 81.5 %; White Blood Count 7.6 K/mcL (4.3-11.1)
[2020-05-17 03:37] LABS: BUN/Creatinine Ratio 30 (6-26); Blood Urea Nitrogen 41 mg/dL (6-20); Calcium 9.4 mg/dL (8.6-10.3); Carbon Dioxide 27 mEq/L (23-29); Chloride 97 mEq/L (98-107); Glucose 105 mg/dL (70-105); Osmolality,Calculated 290 (280-300); Potassium 4.3 mEq/L (3.5-5.1); Sodium 135 mEq/L (136-145); eGFR For African Americans > 60 (> 60); eGFR For Non-African Americans 53 (> 60)
[2020-05-17] MEDS: *HR* Heparin 5,000 UNIT/ML VIAL SQ SCH ×3 (05:07→20:36)
[2020-05-17] MEDS: Albumin 25% 25gram/100mL 25 GM/100 ML IV.SOLN IVPB SCH ×2 (06:04→16:42)
[2020-05-17] MEDS: *HR* HYDROcodone/Acet 7.5/325 mg TABLET PO PRN (06:07)
[2020-05-17] MEDS: Furosemide 40 MG/4 ML VIAL IVP SCH ×2 (08:38→20:36)
[2020-05-17] MEDS: Aspirin 81 MG TAB.CHEW PO SCH (08:38)
[2020-05-17] MEDS: Gabapentin 100 MG CAPSULE PO SCH ×2 (08:38→20:35)
[2020-05-17] MEDS: Vancomycin Oral Soln 125 MG/2.5 ML UDC PO SCH ×4 (08:39→20:36)
[2020-05-17] MEDS: Lactulose Oral Soln 20 GM/30 ML UDC PO SCH ×3 (08:41→20:36)
[2020-05-17] MEDS: Insulin LISPRO 300 UNITS/3 ML VIAL SQ SCH ×4 (09:45→20:29)
[2020-05-17] MEDS: *HR* LORazepam 0.5 MG TABLET PO PRN (20:53)
[2020-05-18 01:39] LABS: Basophils % 0.4 %; Eosinophils # 0.1 K/mcL (0.0-0.6); Eosinophils % 0.6 %; Hematocrit 23.7 % (37.5-50.1); Hemoglobin 7.5 g/dL (12.9-16.9); Immature Granulocytes % 0.1 % (0-4); Lymphocytes # 0.4 K/mcL (0.6-4.6); Lymphocytes % 4.6 %; Mean Corpuscular HGB Conc 31.6 g/dL (31.6-35.5); Mean Corpuscular Hemoglobin 28.6 pg (28.0-33.3); Mean Corpuscular Volume 90.5 fL (83.0-100.0); Monocytes # 0.7 K/mcL (0.0-1.3); Monocytes % 8.8 %; Neutrophils # 7.1 K/mcL (1.6-8.9); Platelet Count 188 K/mcL (140-400); Red Blood Count 2.62 M/mcL (4.19-5.50); Segmented Neutrophils % 85.5 %; White Blood Count 8.3 K/mcL (4.3-11.1)
[2020-05-18 01:58] LABS: BUN/Creatinine Ratio 33 (6-26); Blood Urea Nitrogen 39 mg/dL (6-20); Calcium 9.3 mg/dL (8.6-10.3); Carbon Dioxide 27 mEq/L (23-29); Chloride 95 mEq/L (98-107); Glucose 105 mg/dL (70-105); Osmolality,Calculated 286 (280-300); Potassium 4.2 mEq/L (3.5-5.1); Sodium 133 mEq/L (136-145); eGFR For African Americans > 60 (> 60); eGFR For Non-African Americans > 60 (> 60)
[2020-05-18] MEDS: Albumin 25% 25gram/100mL 25 GM/100 ML IV.SOLN IVPB SCH (05:54)
[2020-05-18] MEDS: *HR* Heparin 5,000 UNIT/ML VIAL SQ SCH (05:58)
[2020-05-18 08:34] VITALS: BP 129/87
[2020-05-18] MEDS: Insulin LISPRO 300 UNITS/3 ML VIAL SQ SCH (08:37)
[2020-05-18] MEDS: Furosemide 40 MG/4 ML VIAL IVP SCH (09:01)
[2020-05-18] MEDS: Aspirin 81 MG TAB.CHEW PO SCH (09:01)
[2020-05-18] MEDS: Gabapentin 100 MG CAPSULE PO SCH (09:01)
[2020-05-18] MEDS: Lactulose Oral Soln 20 GM/30 ML UDC PO SCH (09:01)
[2020-05-18] MEDS: Vancomycin Oral Soln 125 MG/2.5 ML UDC PO SCH (10:10)
[2020-05-18] MEDS: Ipratropium/Albuterol Neb 3 ML IH PRN (11:04)
== END 2020-05-18 12:53 | disposition home or self-care (01) | DRG 194 ==
LOC: EMEROOARM 21:43 → 2ANU 21:43 → SUATTDRO 05-08 00:13 → 2ANU 05-08 00:44 → SUATTDRO 05-09 17:09 → 2ANU 05-12 20:20
PROVIDERS: ADMIT Internal Medicine; ATTEND Internal Medicine

== ENCOUNTER 2020-05-24 00:49 | Inpatient (IN) ==
[2020-05-24 02:40] LABS: Basophils % 0.1 %; Eosinophils % 0.1 %; Hematocrit 22.2 % (37.5-50.1); Hemoglobin 6.8 g/dL (12.9-16.9); Immature Granulocytes % 0.3 % (0-4); Lymphocytes # 0.3 K/mcL (0.6-4.6); Lymphocytes % 3.1 %; Mean Corpuscular HGB Conc 30.6 g/dL (31.6-35.5); Mean Corpuscular Hemoglobin 27.5 pg (28.0-33.3); Mean Corpuscular Volume 89.9 fL (83.0-100.0); Mean Platelet Volume 10.9 fL (9.4-12.4); Monocytes # 0.5 K/mcL (0.0-1.3); Monocytes % 5.5 %; Neutrophils # 8.9 K/mcL (1.6-8.9); Platelet Count 246 K/mcL (140-400); Red Blood Count 2.47 M/mcL (4.19-5.50); Red Cell Distribution Width 15.6 % (11.5-14.5); Segmented Neutrophils % 90.9 %; White Blood Count 9.8 K/mcL (4.3-11.1)
[2020-05-24 03:19] LABS: Troponin I 0.04 ng/mL (< 0.04)
[2020-05-24 03:20] LABS: Albumin/Globulin Ratio 1.3 (1.1-2.2); Bilirubin,Direct 0.2 mg/dL (0.0-0.2); Bilirubin,Indirect 0.3 mg/dL (0.0-1.0); Bilirubin,Total 0.5 mg/dL (0.3-1.0); Calcium 8.9 mg/dL (8.6-10.3); Globulin 3.2 g/dL (2.4-3.5); Potassium 5.4 mEq/L (3.5-5.1); Total Protein 7.2 g/dL (6.4-8.9)
[2020-05-24] MEDS ORDERED: 0.9 % Sodium Chloride 500 ML IVC ONE (04:03)
[2020-05-24] MEDS ORDERED: Naloxone 0.4 MG/ML INJ IVP PRN (04:27)
[2020-05-24 04:59] LABS: Influenza A PCR Negative (Negative); Influenza B PCR Negative (Negative); Resp. Syncytial Virus PCR Negative (Negative)
[2020-05-24 05:02] LABS: SARS-CoV-2 by PCR (In House) Negative (Negative)
[2020-05-24] MEDS ORDERED: D5% in Water 1,000 ML IVC PRN (05:08)
[2020-05-24] MEDS ORDERED: *HR* Dextrose 50 % in Water (Vial) 50 ML VIAL IVP PRN (05:08)
[2020-05-24] MEDS ORDERED: Dextrose Gel 15 GM/37.5 ML TUBE PO PRN ×2 (05:08)
[2020-05-24] MEDS ORDERED: Pantoprazole 80 MG in 0.9 % Sodium Chloride 50 ML IVPB ONE (05:45)
[2020-05-24] MEDS ORDERED: Albumin 25% 25gram/100mL 25 GM/100 ML IV.SOLN ONE (06:06)
[2020-05-24] MEDS ORDERED: Perflutren Lipid Microsphere 1.3 ML in 0.9 % Sodium Chloride 8.7 ML IVP PRN (06:18)
[2020-05-24] MEDS ORDERED: Octreotide 50 MCG/ML INJ IVP ONE (06:24)
[2020-05-24] MEDS ORDERED: Ipratropium/Albuterol Neb 3 ML IH PRN (06:42)
[2020-05-24 06:54] LABS: Bacteria,Urine Moderate per hpf (None-Few); Bilirubin,Urine Negative (Negative); Blood,Urine Small (Negative); Clarity,Urine Ex.Turbid (Clear); Color,Urine Dark-Orange (Yellow); Glucose,Urine (UA) Normal (Normal); Ketones,Urine Negative (Negative); Leukocyte Esterase,Urine Large (Negative); Mucus,Urine Many per lpf (None-Few); Nitrite,Urine Negative (Negative); PH,Urine 6.5 pH Units (5.0-8.0); Protein,Urine >=300 mg/dL (Neg-Trace); RBC,Urine 50-100 per hpf (0-3); Specific Gravity,Urine 1.015 (1.010-1.025); Urobilinogen,Urine Normal (Normal); WBC,Urine TNTC per hpf (0-3)
[2020-05-24] MEDS ORDERED: cefTRIAXone 1,000 MG in Water for inj. (sterile) 10 ML IVP SCH (07:00)
[2020-05-24 07:10] LABS: Amphetamine Screen,Urine Negative ng/mL (Cutoff=1000); Barbiturate Screen,Urine Negative ng/mL (Cutoff=200)
[2020-05-24 07:12] LABS: Benzodiazepines Screen,Urine Negative ng/mL (Cutoff=300); Cannabinoid Screen,Urine Negative ng/mL (Cutoff = 50); Cocaine Screen,Urine Negative ng/mL (Cutoff= 300); Opiate Screen,Urine Positive ng/mL (Cutoff=300); Phencyclidine Screen,Urine Negative ng/mL (Cutoff=25)
[2020-05-24] MEDS: Insulin LISPRO 300 UNITS/3 ML VIAL SUBQ SCH ×3 (07:45→18:32)
[2020-05-24] MEDS: Octreotide 400 MCG in 0.9 % Sodium Chloride 100 ML IVC SCH (07:59)
[2020-05-24 09:12] LABS: ABG Base Excess -4 mEq/L (-2 to 3); ABG HCO3 21 mEq/L (21-27); ABG Oxygen Saturation 95 % (95-98); ABG PCO2 37 mmHg (35-45); ABG PH 7.37 pH Units (7.32-7.45); ABG PO2 77 mmHg (85-104); ABG TCO2 22 mEq/L (20-26)
[2020-05-24 09:26] LABS: Hematocrit 24.2 % (37.5-50.1); Hemoglobin 7.5 g/dL (12.9-16.9); Mean Corpuscular Hemoglobin 28.6 pg (28.0-33.3); Mean Corpuscular Volume 92.4 fL (83.0-100.0); Mean Platelet Volume 10.8 fL (9.4-12.4); Platelet Count 230 K/mcL (140-400); Red Blood Count 2.62 M/mcL (4.19-5.50); Red Cell Distribution Width 15.7 % (11.5-14.5); White Blood Count 8.7 K/mcL (4.3-11.1)
[2020-05-24 09:31] LABS: INR 1.2; Prothrombin Time 13.9 Seconds (9.4-12.1)
[2020-05-24 09:34] LABS: Activated Partial Thrombo Time 26.8 Seconds (26.0-36.0)
[2020-05-24] MEDS: Pantoprazole 40 MG VIAL IVP SCH ×2 (09:50→19:44)
[2020-05-24 10:01] LABS: Thyroid Stimulating Hormone 2.361 mcIU/mL (0.340-5.600); Troponin I 0.06 ng/mL (< 0.04)
[2020-05-24] MEDS: Vasopressin 40 UNIT in D5% in Water 100 ML IVC SCH (13:26)
[2020-05-24 15:44] LABS: Uric Acid 14.5 mg/dL (2.3-7.6)
[2020-05-24 15:50] LABS: Basophils % 0.4 %; Eosinophils % 0.4 %; Hematocrit 27.8 % (37.5-50.1); Hemoglobin 8.8 g/dL (12.9-16.9); Immature Granulocytes % 0.2 % (0-4); Lymphocytes # 0.5 K/mcL (0.6-4.6); Mean Corpuscular HGB Conc 31.7 g/dL (31.6-35.5); Mean Corpuscular Hemoglobin 29.3 pg (28.0-33.3); Mean Corpuscular Volume 92.7 fL (83.0-100.0); Mean Platelet Volume 10.9 fL (9.4-12.4); Monocytes # 0.8 K/mcL (0.0-1.3); Monocytes % 9.1 %; Platelet Count 248 K/mcL (140-400); Red Cell Distribution Width 15.4 % (11.5-14.5); Segmented Neutrophils % 83.9 %; White Blood Count 8.3 K/mcL (4.3-11.1)
[2020-05-24 16:13] LABS: Hepatitis B Surface Antigen Nonreactive (Nonreactive)
[2020-05-24 16:43] LABS: Hepatitis B Core IgM Nonreactive (Nonreactive)
[2020-05-24 16:46] LABS: Hepatitis A Antibody IgM Nonreactive (Nonreactive)
[2020-05-24 16:47] LABS: Hepatitis C Virus Antibody Nonreactive (Nonreactive)
[2020-05-24] MEDS: Nystatin POWDER 30 GM BOTTLE TP SCH ×2 (17:20→21:26)
[2020-05-24] MEDS: Cefepime HCl 2,000 MG in Water for inj. (sterile) 20 ML IVP SCH (17:29)
[2020-05-24 17:43] LABS: Basophils % 0.2 %; Eosinophils % 0.2 %; Hematocrit 27.8 % (37.5-50.1); Hemoglobin 8.6 g/dL (12.9-16.9); Immature Granulocytes % 0.2 % (0-4); Lymphocytes # 0.5 K/mcL (0.6-4.6); Lymphocytes % 5.6 %; Mean Corpuscular HGB Conc 30.9 g/dL (31.6-35.5); Mean Corpuscular Hemoglobin 28.7 pg (28.0-33.3); Mean Corpuscular Volume 92.7 fL (83.0-100.0); Mean Platelet Volume 10.9 fL (9.4-12.4); Monocytes # 0.8 K/mcL (0.0-1.3); Monocytes % 9.3 %; Neutrophils # 7.1 K/mcL (1.6-8.9); Platelet Count 234 K/mcL (140-400); Red Cell Distribution Width 15.2 % (11.5-14.5); Segmented Neutrophils % 84.5 %; White Blood Count 8.4 K/mcL (4.3-11.1)
[2020-05-24 18:02] LABS: Albumin 4.1 g/dL (3.5-5.7); Albumin/Globulin Ratio 1.5 (1.1-2.2); Bilirubin,Total 0.9 mg/dL (0.3-1.0); Globulin 2.8 g/dL (2.4-3.5); Potassium 5.5 mEq/L (3.5-5.1); Total Protein 6.9 g/dL (6.4-8.9)
[2020-05-24 23:37] LABS: Protein/Creatinine Ratio,Urine 4.06 mg/mg (0.00-0.20)
[2020-05-24 23:50] LABS: Creatinine,Urine 178 mg/dL
[2020-05-25] MEDS: Insulin LISPRO 300 UNITS/3 ML VIAL SUBQ SCH ×4 (00:33→17:50)
[2020-05-25] MEDS: Octreotide 400 MCG in 0.9 % Sodium Chloride 100 ML IVC SCH ×2 (01:15→07:51)
[2020-05-25 03:52] LABS: Hematocrit 27.3 % (37.5-50.1); Hemoglobin 8.6 g/dL (12.9-16.9); Mean Corpuscular HGB Conc 31.5 g/dL (31.6-35.5); Mean Corpuscular Hemoglobin 28.7 pg (28.0-33.3); Mean Platelet Volume 10.5 fL (9.4-12.4); Platelet Count 234 K/mcL (140-400); Red Cell Distribution Width 15.6 % (11.5-14.5); White Blood Count 8.7 K/mcL (4.3-11.1)
[2020-05-25 04:01] LABS: VBG Ionized Calcium 1.05 mmol/L (1.15-1.35)
[2020-05-25 04:11] LABS: Albumin/Globulin Ratio 1.3 (1.1-2.2); Bilirubin,Total 0.8 mg/dL (0.3-1.0); Calcium 8.9 mg/dL (8.6-10.3); Potassium 5.5 mEq/L (3.5-5.1)
[2020-05-25] MEDS: Cefepime HCl 2,000 MG in Water for inj. (sterile) 20 ML IVP SCH (06:13)
[2020-05-25] MEDS ORDERED: 0.9 % Sodium Chloride 250 ML IVC PRN (08:57)
[2020-05-25] MEDS ORDERED: Albumin 25% 25gram/100mL 25 GM/100 ML IV.SOLN IVPB PRN (08:57)
[2020-05-25] MEDS ORDERED: 0.9 % Sodium Chloride 1,000 ML PRIME SCH (09:00)
[2020-05-25] MEDS ORDERED: *HR* HYDROcodone/Acet 7.5/325 mg TABLET PO PRN (09:09)
[2020-05-25] MEDS: Pantoprazole 40 MG VIAL IVP SCH ×2 (09:55→20:53)
[2020-05-25] MEDS: Vasopressin 40 UNIT in D5% in Water 100 ML IVC SCH (10:04)
[2020-05-25] MEDS: Nystatin POWDER 30 GM BOTTLE TP SCH ×3 (10:04→20:54)
[2020-05-25] MEDS: *HR* HYDROcodone/Acet 10/325 mg TABLET PO PRN (10:46)
[2020-05-25] MEDS ORDERED: *HR* Heparin 5,000 UNIT/ML VIAL ONE (11:06)
[2020-05-25] MEDS ORDERED: *HR* LORazepam 2 MG/ML VIAL IVP PRN (12:11)
[2020-05-25] MEDS: Gabapentin 100 MG CAPSULE PO SCH ×2 (14:00→21:00)
[2020-05-25] MEDS ORDERED: *HR* Heparin 10,000 UNIT/10 ML VIAL IV PRN (15:52)
[2020-05-25] MEDS: Cefepime HCl 1,000 MG in Water for inj. (sterile) 10 ML IVP SCH (17:50)
[2020-05-26] MEDS: Vasopressin 40 UNIT in D5% in Water 100 ML IVC SCH (03:43)
[2020-05-26 03:49] LABS: Basophils % 0.3 %; Eosinophils # 0.1 K/mcL (0.0-0.6); Eosinophils % 1.2 %; Hematocrit 27.5 % (37.5-50.1); Hemoglobin 8.6 g/dL (12.9-16.9); Immature Granulocytes % 0.3 % (0-4); Lymphocytes # 0.5 K/mcL (0.6-4.6); Lymphocytes % 6.1 %; Mean Corpuscular HGB Conc 31.3 g/dL (31.6-35.5); Mean Corpuscular Hemoglobin 29.4 pg (28.0-33.3); Mean Corpuscular Volume 93.9 fL (83.0-100.0); Mean Platelet Volume 10.3 fL (9.4-12.4); Monocytes # 0.7 K/mcL (0.0-1.3); Neutrophils # 6.1 K/mcL (1.6-8.9); Platelet Count 195 K/mcL (140-400); Red Blood Count 2.93 M/mcL (4.19-5.50); Segmented Neutrophils % 83.1 %; White Blood Count 7.3 K/mcL (4.3-11.1)
[2020-05-26 04:09] LABS: Calcium 8.8 mg/dL (8.6-10.3); Potassium 4.9 mEq/L (3.5-5.1)
[2020-05-26] MEDS: Insulin LISPRO 300 UNITS/3 ML VIAL SUBQ SCH ×5 (05:47→23:54)
[2020-05-26] MEDS: Cefepime HCl 1,000 MG in Water for inj. (sterile) 10 ML IVP SCH ×2 (05:51→18:16)
[2020-05-26] MEDS ORDERED: 0.9 % Sodium Chloride 250 ML IVC PRN ×2 (07:31→09:10)
[2020-05-26] MEDS: Gabapentin 100 MG CAPSULE PO SCH ×2 (08:06→19:37)
[2020-05-26] MEDS: Pantoprazole 40 MG VIAL IVP SCH (08:06)
[2020-05-26] MEDS: *HR* HYDROcodone/Acet 10/325 mg TABLET PO PRN ×2 (08:06→15:51)
[2020-05-26] MEDS: Nystatin POWDER 30 GM BOTTLE TP SCH ×3 (08:06→19:38)
[2020-05-26] MEDS ORDERED: Albumin 25% 25gram/100mL 25 GM/100 ML IV.SOLN IVPB PRN (09:10)
[2020-05-26] MEDS ORDERED: Ipratropium/Albuterol Neb 3 ML IH PRN (09:10)
[2020-05-26] MEDS ORDERED: D5% in Water 1,000 ML IVC PRN (09:10)
[2020-05-26] MEDS ORDERED: Naloxone 0.4 MG/ML INJ IVP PRN (09:10)
[2020-05-26] MEDS ORDERED: Dextrose Gel 15 GM/37.5 ML TUBE PO PRN ×2 (09:10)
[2020-05-26] MEDS ORDERED: *HR* Dextrose 50 % in Water (Vial) 50 ML VIAL IVP PRN (09:10)
[2020-05-26] MEDS ORDERED: 0.9 % Sodium Chloride 1,000 ML PRIME SCH (09:10)
[2020-05-26] MEDS ORDERED: *HR* LORazepam 2 MG/ML VIAL IVP PRN (09:10)
[2020-05-26] MEDS ORDERED: *HR* Heparin 10,000 UNIT/10 ML VIAL ONE (14:03)
[2020-05-26] MEDS: Folic Acid 1 MG TABLET PO SCH (15:51)
[2020-05-27] MEDS: *HR* HYDROcodone/Acet 10/325 mg TABLET PO PRN (01:03)
[2020-05-27] MEDS ORDERED: Haloperidol Lactate 5 MG/ML VIAL IVP ONE (01:45)
[2020-05-27 02:49] LABS: Basophils % 0.4 %; Eosinophils # 0.1 K/mcL (0.0-0.6); Eosinophils % 0.6 %; Hematocrit 27.4 % (37.5-50.1); Hemoglobin 8.5 g/dL (12.9-16.9); Immature Granulocytes % 0.3 % (0-4); Lymphocytes # 0.4 K/mcL (0.6-4.6); Lymphocytes % 4.8 %; Mean Corpuscular Hemoglobin 29.3 pg (28.0-33.3); Mean Corpuscular Volume 94.5 fL (83.0-100.0); Mean Platelet Volume 10.6 fL (9.4-12.4); Monocytes # 0.7 K/mcL (0.0-1.3); Monocytes % 9.3 %; Neutrophils # 6.5 K/mcL (1.6-8.9); Platelet Count 166 K/mcL (140-400); Red Cell Distribution Width 15.9 % (11.5-14.5); Segmented Neutrophils % 84.6 %; White Blood Count 7.7 K/mcL (4.3-11.1)
[2020-05-27 02:55] LABS: Albumin 3.8 g/dL (3.5-5.7); Calcium 8.8 mg/dL (8.6-10.3); Phosphorous 5.5 mg/dL (2.7-4.5); Potassium 4.4 mEq/L (3.5-5.1)
[2020-05-27] MEDS: Cefepime HCl 1,000 MG in Water for inj. (sterile) 10 ML IVP SCH ×2 (05:18→17:46)
[2020-05-27] MEDS: Insulin LISPRO 300 UNITS/3 ML VIAL SUBQ SCH ×3 (05:22→18:16)
[2020-05-27] MEDS ORDERED: 0.9 % Sodium Chloride 250 ML IVC PRN (07:03)
[2020-05-27] MEDS ORDERED: 0.9 % Sodium Chloride 1,000 ML PRIME SCH (07:15)
[2020-05-27] MEDS: Folic Acid 1 MG TABLET PO SCH (07:29)
[2020-05-27] MEDS: Gabapentin 100 MG CAPSULE PO SCH ×2 (07:29→20:05)
[2020-05-27] MEDS: Nystatin POWDER 30 GM BOTTLE TP SCH ×3 (07:37→20:05)
[2020-05-27 10:16] LABS: Blood Gas Pressure Support 14 cm H2O; VBG HCO3 27 mEq/L (21-27); VBG PCO2 59 mmHg (41-51); VBG PH 7.27 pH Units (7.32-7.42); VBG PO2 48 mmHg (25-50)
[2020-05-27 11:47] LABS: ABG Base Excess -1 mEq/L (-2 to 3); ABG HCO3 26 mEq/L (21-27); ABG Oxygen Saturation 96 % (95-98); ABG PCO2 56 mmHg (35-45); ABG PH 7.28 pH Units (7.32-7.45); ABG PO2 96 mmHg (85-104); ABG TCO2 28 mEq/L (20-26); Blood Gas VT 500 cc
[2020-05-27] MEDS ORDERED: Albumin 25% 25gram/100mL 25 GM/100 ML IV.SOLN IVPB PRN (14:47)
[2020-05-27] MEDS ORDERED: Ipratropium/Albuterol Neb 3 ML IH PRN (14:47)
[2020-05-27] MEDS ORDERED: Dextrose Gel 15 GM/37.5 ML TUBE PO PRN ×2 (14:47)
[2020-05-27] MEDS ORDERED: *HR* HYDROcodone/Acet 10/325 mg TABLET PO PRN (14:47)
[2020-05-27] MEDS ORDERED: D5% in Water 1,000 ML IVC PRN (14:47)
[2020-05-27] MEDS ORDERED: *HR* Dextrose 50 % in Water (Vial) 50 ML VIAL IVP PRN (14:47)
[2020-05-27] MEDS ORDERED: Naloxone 0.4 MG/ML INJ IVP PRN (14:47)
[2020-05-27] MEDS ORDERED: Furosemide 20 MG/2 ML VIAL IVP ONE (16:54)
[2020-05-27 18:22] LABS: VBG HCO3 25 mEq/L (21-27); VBG PCO2 60 mmHg (41-51); VBG PH 7.22 pH Units (7.32-7.42); VBG PO2 112 mmHg (25-50)
[2020-05-27] MEDS: Octreotide 400 MCG in 0.9 % Sodium Chloride 100 ML IVC SCH (18:57)
[2020-05-28] MEDS: Insulin LISPRO 300 UNITS/3 ML VIAL SUBQ SCH ×4 (01:02→17:45)
[2020-05-28 03:42] LABS: Basophils % 0.4 %; Eosinophils # 0.1 K/mcL (0.0-0.6); Eosinophils % 0.6 %; Hematocrit 29.2 % (37.5-50.1); Hemoglobin 8.8 g/dL (12.9-16.9); Immature Granulocytes % 0.2 % (0-4); Lymphocytes # 0.5 K/mcL (0.6-4.6); Mean Corpuscular HGB Conc 30.1 g/dL (31.6-35.5); Mean Corpuscular Hemoglobin 28.1 pg (28.0-33.3); Mean Corpuscular Volume 93.3 fL (83.0-100.0); Mean Platelet Volume 10.9 fL (9.4-12.4); Monocytes # 0.9 K/mcL (0.0-1.3); Monocytes % 9.8 %; Neutrophils # 7.9 K/mcL (1.6-8.9); Platelet Count 181 K/mcL (140-400); Red Blood Count 3.13 M/mcL (4.19-5.50); Red Cell Distribution Width 16.1 % (11.5-14.5); White Blood Count 9.4 K/mcL (4.3-11.1)
[2020-05-28 04:02] LABS: Calcium 9.1 mg/dL (8.6-10.3); Magnesium 2.2 mg/dL (1.6-2.6); Potassium 4.5 mEq/L (3.5-5.1)
[2020-05-28] MEDS: Cefepime HCl 1,000 MG in Water for inj. (sterile) 10 ML IVP SCH ×2 (05:22→17:23)
[2020-05-28] MEDS: Nystatin POWDER 30 GM BOTTLE TP SCH ×3 (08:24→20:08)
[2020-05-28] MEDS: Gabapentin 100 MG CAPSULE PO SCH ×2 (08:24→20:08)
[2020-05-28] MEDS ORDERED: Folic Acid 1 MG TABLET PO SCH (09:00)
[2020-05-28] MEDS ORDERED: Furosemide 40 MG/4 ML VIAL IVP ONE (10:22)
[2020-05-28] MEDS ORDERED: *HR* Dextrose 50 % in Water (Vial) 50 ML VIAL IVP PRN (12:01)
[2020-05-28] MEDS ORDERED: D5% in Water 1,000 ML IVC PRN (12:01)
[2020-05-28] MEDS ORDERED: *HR* HYDROcodone/Acet 10/325 mg TABLET PO PRN (12:01)
[2020-05-28] MEDS ORDERED: Dextrose Gel 15 GM/37.5 ML TUBE PO PRN ×2 (12:01)
[2020-05-28] MEDS ORDERED: Naloxone 0.4 MG/ML INJ IVP PRN (12:01)
[2020-05-28] MEDS ORDERED: Ipratropium/Albuterol Neb 3 ML IH PRN (18:11)
[2020-05-29] MEDS: Insulin LISPRO 300 UNITS/3 ML VIAL SUBQ SCH ×4 (00:14→18:13)
[2020-05-29 03:34] LABS: Basophils % 0.4 %; Eosinophils # 0.1 K/mcL (0.0-0.6); Eosinophils % 1.3 %; Hematocrit 28.4 % (37.5-50.1); Hemoglobin 8.8 g/dL (12.9-16.9); Immature Granulocytes % 0.2 % (0-4); Lymphocytes # 0.4 K/mcL (0.6-4.6); Lymphocytes % 4.8 %; Mean Corpuscular Hemoglobin 29.1 pg (28.0-33.3); Mean Platelet Volume 10.8 fL (9.4-12.4); Monocytes # 0.7 K/mcL (0.0-1.3); Monocytes % 8.5 %; Platelet Count 156 K/mcL (140-400); Red Blood Count 3.02 M/mcL (4.19-5.50); Red Cell Distribution Width 16.1 % (11.5-14.5); Segmented Neutrophils % 84.8 %; White Blood Count 8.2 K/mcL (4.3-11.1)
[2020-05-29 03:54] LABS: Magnesium 2.1 mg/dL (1.6-2.6); Potassium 4.6 mEq/L (3.5-5.1)
[2020-05-29] MEDS: Cefepime HCl 1,000 MG in Water for inj. (sterile) 10 ML IVP SCH (05:54)
[2020-05-29] MEDS ORDERED: 0.9 % Sodium Chloride 250 ML IVC PRN (07:16)
[2020-05-29] MEDS ORDERED: *HR* Heparin 10,000 UNIT/10 ML VIAL IV PRN (07:16)
[2020-05-29] MEDS ORDERED: Albumin 25% 25gram/100mL 25 GM/100 ML IV.SOLN IVPB PRN (07:16)
[2020-05-29] MEDS ORDERED: 0.9 % Sodium Chloride 1,000 ML PRIME SCH (07:30)
[2020-05-29] MEDS: Folic Acid 1 MG TABLET PO SCH (08:00)
[2020-05-29] MEDS: Nystatin POWDER 30 GM BOTTLE TP SCH ×3 (08:01→21:26)
[2020-05-29] MEDS: Gabapentin 100 MG CAPSULE PO SCH ×2 (08:01→19:42)
[2020-05-29 09:50] LABS: ABG Base Excess 0 mEq/L (-2 to 3); ABG HCO3 27 mEq/L (21-27); ABG Oxygen Saturation 97 % (95-98); ABG PCO2 55 mmHg (35-45); ABG PO2 104 mmHg (85-104); ABG TCO2 29 mEq/L (20-26)
[2020-05-29] MEDS ORDERED: Cefepime HCl 1,000 MG in Water for inj. (sterile) 10 ML IVP SCH (18:00)
[2020-05-30] MEDS: Insulin LISPRO 300 UNITS/3 ML VIAL SUBQ SCH ×3 (01:31→15:36)
[2020-05-30 04:10] LABS: Basophils % 0.4 %; Eosinophils # 0.2 K/mcL (0.0-0.6); Eosinophils % 2.3 %; Hematocrit 28.4 % (37.5-50.1); Hemoglobin 8.7 g/dL (12.9-16.9); Immature Granulocytes % 0.3 % (0-4); Immature Platelets 5.1 % (1.1-6.1); Lymphocytes # 0.5 K/mcL (0.6-4.6); Lymphocytes % 5.9 %; Mean Corpuscular HGB Conc 30.6 g/dL (31.6-35.5); Mean Corpuscular Hemoglobin 28.7 pg (28.0-33.3); Mean Corpuscular Volume 93.7 fL (83.0-100.0); Monocytes # 0.7 K/mcL (0.0-1.3); Monocytes % 9.6 %; Neutrophils # 6.3 K/mcL (1.6-8.9); Platelet Count 137 K/mcL (140-400); Red Blood Count 3.03 M/mcL (4.19-5.50); Red Cell Distribution Width 16.1 % (11.5-14.5); Segmented Neutrophils % 81.5 %; White Blood Count 7.7 K/mcL (4.3-11.1)
[2020-05-30 04:16] LABS: Calcium 9.1 mg/dL (8.6-10.3)
[2020-05-30] MEDS ORDERED: *HR* FentaNYL (PF) 100 MCG/2 ML VIAL IVP ONE (04:20)
[2020-05-30] MEDS: Gabapentin 100 MG CAPSULE PO SCH ×2 (10:02→19:51)
[2020-05-30] MEDS: Folic Acid 1 MG TABLET PO SCH (10:02)
[2020-05-30] MEDS: Nystatin POWDER 30 GM BOTTLE TP SCH ×2 (10:03→19:52)
[2020-05-30] MEDS ORDERED: Furosemide 40 MG/4 ML VIAL IVP ONE (10:34)
[2020-05-30] MEDS ORDERED: Lactulose Oral Soln 20 GM/30 ML UDC PO SCH (15:00)
[2020-05-30] MEDS ORDERED: *HR* Dextrose 50 % in Water (Vial) 50 ML VIAL IVP PRN (18:33)
[2020-05-30] MEDS ORDERED: Ipratropium/Albuterol Neb 3 ML IH PRN (18:33)
[2020-05-30] MEDS ORDERED: D5% in Water 1,000 ML IVC PRN (18:33)
[2020-05-30] MEDS ORDERED: Naloxone 0.4 MG/ML INJ IVP PRN (18:33)
[2020-05-30] MEDS ORDERED: Dextrose Gel 15 GM/37.5 ML TUBE PO PRN ×2 (18:33)
[2020-05-31] MEDS: Insulin LISPRO 300 UNITS/3 ML VIAL SUBQ SCH ×4 (01:42→18:02)
[2020-05-31 04:20] LABS: Hematocrit 28.5 % (37.5-50.1); Hemoglobin 8.9 g/dL (12.9-16.9); Mean Corpuscular HGB Conc 31.2 g/dL (31.6-35.5); Mean Corpuscular Hemoglobin 29.3 pg (28.0-33.3); Mean Corpuscular Volume 93.8 fL (83.0-100.0); Platelet Count 163 K/mcL (140-400); Red Blood Count 3.04 M/mcL (4.19-5.50); Red Cell Distribution Width 16.5 % (11.5-14.5); White Blood Count 7.4 K/mcL (4.3-11.1)
[2020-05-31 04:40] LABS: Albumin 3.8 g/dL (3.5-5.7); Albumin/Globulin Ratio 1.3 (1.1-2.2); Bilirubin,Total 0.7 mg/dL (0.3-1.0); Calcium 8.9 mg/dL (8.6-10.3); Globulin 2.9 g/dL (2.4-3.5); Potassium 3.9 mEq/L (3.5-5.1); Total Protein 6.7 g/dL (6.4-8.9)
[2020-05-31] MEDS: *HR* HYDROcodone/Acet 10/325 mg TABLET PO PRN ×2 (05:26→10:56)
[2020-05-31] MEDS ORDERED: 0.9 % Sodium Chloride 250 ML IVC PRN (06:50)
[2020-05-31] MEDS: Gabapentin 100 MG CAPSULE PO SCH ×2 (09:07→20:20)
[2020-05-31] MEDS: Folic Acid 1 MG TABLET PO SCH (09:07)
[2020-05-31] MEDS: Nystatin POWDER 30 GM BOTTLE TP SCH ×3 (09:08→20:19)
[2020-05-31] MEDS ORDERED: *HR* Heparin 10,000 UNIT/10 ML VIAL ONE (13:45)
[2020-05-31] MEDS: Cefepime HCl 1,000 MG in Water for inj. (sterile) 10 ML IVP SCH (18:01)
[2020-06-01] MEDS: Insulin LISPRO 300 UNITS/3 ML VIAL SUBQ SCH ×4 (00:30→17:57)
[2020-06-01 04:13] LABS: Hematocrit 28.5 % (37.5-50.1); Hemoglobin 8.8 g/dL (12.9-16.9); Immature Granulocytes % 0.1 % (0-4); Lymphocytes % 6.9 %; Mean Corpuscular HGB Conc 30.9 g/dL (31.6-35.5); Mean Corpuscular Hemoglobin 28.8 pg (28.0-33.3); Mean Corpuscular Volume 93.1 fL (83.0-100.0); Mean Platelet Volume 11.3 fL (9.4-12.4); Platelet Count 126 K/mcL (140-400); Red Blood Count 3.06 M/mcL (4.19-5.50); Red Cell Distribution Width 16.1 % (11.5-14.5); Segmented Neutrophils % 79.3 %; White Blood Count 7.4 K/mcL (4.3-11.1)
[2020-06-01 04:14] LABS: Basophils % 0.4 %; Eosinophils # 0.2 K/mcL (0.0-0.6); Eosinophils % 2.2 %; Lymphocytes # 0.5 K/mcL (0.6-4.6); Monocytes # 0.8 K/mcL (0.0-1.3); Monocytes % 11.1 %; Neutrophils # 5.9 K/mcL (1.6-8.9)
[2020-06-01 04:27] LABS: Albumin 3.9 g/dL (3.5-5.7); Albumin/Globulin Ratio 1.4 (1.1-2.2); Bilirubin,Total 0.6 mg/dL (0.3-1.0); Calcium 8.9 mg/dL (8.6-10.3); Globulin 2.7 g/dL (2.4-3.5); Potassium 3.7 mEq/L (3.5-5.1); Total Protein 6.6 g/dL (6.4-8.9)
[2020-06-01] MEDS: Gabapentin 100 MG CAPSULE PO SCH ×2 (08:43→20:32)
[2020-06-01] MEDS: Folic Acid 1 MG TABLET PO SCH (08:43)
[2020-06-01] MEDS: Nystatin POWDER 30 GM BOTTLE TP SCH ×3 (08:46→20:32)
[2020-06-01 16:38] LABS: RBC,Peritoneal Fluid < 2000 RBC/mcL
[2020-06-01] MEDS: Cefepime HCl 1,000 MG in Water for inj. (sterile) 10 ML IVP SCH (16:45)
[2020-06-01 17:06] LABS: Total Protein,Peritoneal Fluid 3.3 g/dL
[2020-06-01 17:54] LABS: Appearance of Peritoneal Fl CLEAR (Clear); Basophils,Peritoneal Fluid 0 %; Eosinophils,Peritoneal Fluid 0 %
[2020-06-01] MEDS: *HR* HYDROcodone/Acet 10/325 mg TABLET PO PRN (20:31)
[2020-06-01] MEDS: Lactulose Oral Soln 20 GM/30 ML UDC PO SCH (20:31)
[2020-06-02] MEDS ORDERED: Albumin 25% 25gram/100mL 25 GM/100 ML IV.SOLN IVPB SCH
[2020-06-02] MEDS: Insulin LISPRO 300 UNITS/3 ML VIAL SUBQ SCH ×4 (01:15→17:32)
[2020-06-02] MEDS: *HR* HYDROcodone/Acet 10/325 mg TABLET PO PRN ×2 (03:36→20:42)
[2020-06-02 04:02] LABS: Basophils % 0.2 %; Mean Platelet Volume 11.5 fL (9.4-12.4)
[2020-06-02 04:03] LABS: Eosinophils # 0.1 K/mcL (0.0-0.6); Eosinophils % 0.8 %; Hematocrit 27.6 % (37.5-50.1); Hemoglobin 8.5 g/dL (12.9-16.9); Immature Granulocytes % 0.2 % (0-4); Immature Platelets 8.7 % (1.1-6.1); Lymphocytes # 0.5 K/mcL (0.6-4.6); Lymphocytes % 5.4 %; Mean Corpuscular HGB Conc 30.8 g/dL (31.6-35.5); Mean Corpuscular Hemoglobin 28.5 pg (28.0-33.3); Mean Corpuscular Volume 92.6 fL (83.0-100.0); Monocytes % 11.7 %; Platelet Count 113 K/mcL (140-400); Red Blood Count 2.98 M/mcL (4.19-5.50); Segmented Neutrophils % 81.7 %; White Blood Count 9.8 K/mcL (4.3-11.1)
[2020-06-02 04:04] LABS: Monocytes # 1.2 K/mcL (0.0-1.3)
[2020-06-02 04:19] LABS: Albumin 3.9 g/dL (3.5-5.7); Albumin/Globulin Ratio 1.4 (1.1-2.2); Bilirubin,Total 0.5 mg/dL (0.3-1.0); Calcium 8.8 mg/dL (8.6-10.3); Globulin 2.8 g/dL (2.4-3.5); Magnesium 1.8 mg/dL (1.6-2.6); Phosphorous 3.3 mg/dL (2.7-4.5); Potassium 3.8 mEq/L (3.5-5.1); Total Protein 6.7 g/dL (6.4-8.9)
[2020-06-02] MEDS ORDERED: 0.9 % Sodium Chloride 2,000 ML ONE (06:54)
[2020-06-02] MEDS ORDERED: 0.9 % Sodium Chloride 250 ML IVC PRN (07:09)
[2020-06-02] MEDS ORDERED: 0.9 % Sodium Chloride 1,000 ML PRIME SCH (07:15)
[2020-06-02] MEDS ORDERED: cefTRIAXone 2,000 MG in Water for inj. (sterile) 20 ML IVP SCH (09:00)
[2020-06-02] MEDS: Gabapentin 100 MG CAPSULE PO SCH ×2 (09:00→20:42)
[2020-06-02 10:44] LABS: Hematocrit 29.5 % (37.5-50.1); Immature Platelets 10.8 % (1.1-6.1)
[2020-06-02 10:48] LABS: Mean Corpuscular HGB Conc 30.5 g/dL (31.6-35.5); Mean Corpuscular Volume 91.9 fL (83.0-100.0); Mean Platelet Volume 11.6 fL (9.4-12.4); Red Blood Count 3.21 M/mcL (4.19-5.50); Red Cell Distribution Width 15.9 % (11.5-14.5); White Blood Count 9.5 K/mcL (4.3-11.1)
[2020-06-02] MEDS: Lactulose Oral Soln 20 GM/30 ML UDC PO SCH ×2 (11:43→20:43)
[2020-06-02] MEDS: Nystatin POWDER 30 GM BOTTLE TP SCH ×3 (12:05→20:43)
[2020-06-02] MEDS: Folic Acid 1 MG TABLET PO SCH (12:05)
[2020-06-02] MEDS: Albumin 25% 25gram/100mL 25 GM/100 ML IV.SOLN IVPB SCH ×2 (12:06→20:40)
[2020-06-02] MEDS ORDERED: Bismuth Subsalicylate 120 ML ORAL SUSPENSION PO ONE (22:07)
[2020-06-03] MEDS ORDERED: Albumin 25% 25gram/100mL 25 GM/100 ML IV.SOLN ONE (00:09)
[2020-06-03] MEDS ORDERED: 0.9 % Sodium Chloride 500 ML IVC ONE (01:42)
[2020-06-03 02:40] LABS: Basophils % 0.4 %; Eosinophils # 0.1 K/mcL (0.0-0.6); Eosinophils % 0.7 %; Hemoglobin 8.3 g/dL (12.9-16.9); Immature Granulocytes % 0.2 % (0-4); Lymphocytes # 0.5 K/mcL (0.6-4.6); Mean Corpuscular HGB Conc 30.7 g/dL (31.6-35.5); Mean Corpuscular Hemoglobin 29.5 pg (28.0-33.3); Mean Corpuscular Volume 96.1 fL (83.0-100.0); Mean Platelet Volume 12.3 fL (9.4-12.4); Monocytes % 12.3 %; Neutrophils # 6.5 K/mcL (1.6-8.9); Platelet Count 106 K/mcL (140-400); Red Blood Count 2.81 M/mcL (4.19-5.50); Segmented Neutrophils % 80.4 %
[2020-06-03 02:45] LABS: Magnesium 1.9 mg/dL (1.6-2.6); Phosphorous 2.8 mg/dL (2.7-4.5); Potassium 3.8 mEq/L (3.5-5.1)
[2020-06-03] MEDS: Folic Acid 1 MG TABLET PO SCH (08:31)
[2020-06-03] MEDS: Gabapentin 100 MG CAPSULE PO SCH ×2 (08:33→21:13)
[2020-06-03] MEDS: Nystatin POWDER 30 GM BOTTLE TP SCH ×3 (08:35→21:15)
[2020-06-03] MEDS: Insulin LISPRO 300 UNITS/3 ML VIAL SUBQ SCH ×3 (08:41→16:44)
[2020-06-03] MEDS: Lactulose Oral Soln 20 GM/30 ML UDC PO SCH ×2 (08:42→21:15)
[2020-06-03] MEDS: *HR* HYDROcodone/Acet 10/325 mg TABLET PO PRN (21:13)
[2020-06-03] MEDS ORDERED: Bismuth Subsalicylate 120 ML ORAL SUSPENSION PO ONE (21:25)
[2020-06-03] MEDS ORDERED: Melatonin 3 MG TABLET PO ONE (21:32)
[2020-06-04 02:59] LABS: Hemoglobin 8.1 g/dL (12.9-16.9)
[2020-06-04 03:01] LABS: Hematocrit 26.9 % (37.5-50.1)
[2020-06-04 04:49] LABS: Calcium 8.9 mg/dL (8.6-10.3); Magnesium 1.7 mg/dL (1.6-2.6); Phosphorous 2.7 mg/dL (2.7-4.5)
[2020-06-04] MEDS: Folic Acid 1 MG TABLET PO SCH (07:52)
[2020-06-04] MEDS: Gabapentin 100 MG CAPSULE PO SCH ×2 (07:53→22:15)
[2020-06-04] MEDS: Nystatin POWDER 30 GM BOTTLE TP SCH ×3 (07:57→22:21)
[2020-06-04] MEDS: Insulin LISPRO 300 UNITS/3 ML VIAL SUBQ SCH ×3 (07:57→17:46)
[2020-06-04] MEDS ORDERED: Ondansetron ODT 4 MG TAB.RAPDIS SL PRN (10:01)
[2020-06-04] MEDS: *HR* HYDROcodone/Acet 10/325 mg TABLET PO PRN ×2 (10:15→22:23)
[2020-06-04] MEDS: Lactulose Oral Soln 20 GM/30 ML UDC PO SCH ×2 (10:15→22:21)
[2020-06-04 18:34] LABS: ABG Base Excess 3 mEq/L (-2 to 3); ABG HCO3 30 mEq/L (21-27); ABG Oxygen Saturation 99 % (95-98); ABG PCO2 61 mmHg (35-45); ABG PH 7.31 pH Units (7.32-7.45); ABG PO2 142 mmHg (85-104); ABG TCO2 32 mEq/L (20-26)
[2020-06-05 04:13] LABS: Basophils % 0.4 %; Eosinophils # 0.2 K/mcL (0.0-0.6); Hematocrit 27.6 % (37.5-50.1); Hemoglobin 8.2 g/dL (12.9-16.9); Immature Granulocytes % 0.3 % (0-4); Lymphocytes # 0.5 K/mcL (0.6-4.6); Lymphocytes % 5.8 %; Mean Corpuscular HGB Conc 29.7 g/dL (31.6-35.5); Mean Corpuscular Hemoglobin 28.3 pg (28.0-33.3); Mean Corpuscular Volume 95.2 fL (83.0-100.0); Mean Platelet Volume 11.6 fL (9.4-12.4); Monocytes % 11.6 %; Neutrophils # 7.2 K/mcL (1.6-8.9); Platelet Count 146 K/mcL (140-400); Red Cell Distribution Width 16.3 % (11.5-14.5); Segmented Neutrophils % 79.9 %
[2020-06-05 04:33] LABS: Calcium 9.1 mg/dL (8.6-10.3); Magnesium 1.8 mg/dL (1.6-2.6); Phosphorous 3.1 mg/dL (2.7-4.5); Potassium 4.2 mEq/L (3.5-5.1)
[2020-06-05] MEDS ORDERED: 0.9 % Sodium Chloride 250 ML IVC PRN (07:16)
[2020-06-05] MEDS ORDERED: *HR* Heparin 10,000 UNIT/10 ML VIAL IV PRN ×2 (07:16)
[2020-06-05] MEDS: Insulin LISPRO 300 UNITS/3 ML VIAL SUBQ SCH ×2 (09:11→12:14)
[2020-06-05] MEDS: *HR* HYDROcodone/Acet 10/325 mg TABLET PO PRN (09:21)
[2020-06-05] MEDS: Gabapentin 100 MG CAPSULE PO SCH (09:21)
[2020-06-05] MEDS: Lactulose Oral Soln 20 GM/30 ML UDC PO SCH (09:38)
[2020-06-05] MEDS: Folic Acid 1 MG TABLET PO SCH (09:39)
[2020-06-05] MEDS: Nystatin POWDER 30 GM BOTTLE TP SCH (09:40)
[2020-06-05 12:10] VITALS: BP 100/67
[2020-06-05] MEDS ORDERED: Heparin 1,000 UNITS/500 mL 500 ML ONE (13:58)
[2020-06-05] MEDS ORDERED: Lidocaine/EPI 1:100k 1% 50 ML VIAL ONE (13:58)
[2020-06-05] MEDS ORDERED: 0.9 % Sodium Chloride 500 ML ONE (14:15)
[2020-06-05] MEDS ORDERED: *HR* FentaNYL (PF) 100 MCG/2 ML VIAL ONE (14:17)
[2020-06-05] MEDS ORDERED: CeFAZolin 2,000 MG/50 ML BAG IVPB ONE (14:24)
[2020-06-05] MEDS ORDERED: *HR* Heparin 5,000 UNIT/ML VIAL ONE (14:29)
== END 2020-06-05 17:42 | DRG 469 ==
LOC: EMEROOARM 00:49 → 2NNU 00:49 → ICNU 05:52 → SUATTDRO 05:53 → ICNU 07:25 → 2ANU 05-26 17:47 → ICNU 05-27 15:35 → 2ANU 06-01 15:17
PROVIDERS: ADMIT Student in an Organized Health Care Education/Training Program; ATTEND Internal Medicine
PROC: IRPERMA (2020-06-05 12:00)

== ENCOUNTER 2020-06-08 14:23 | Inpatient (IN) ==
[2020-06-08 15:28] LABS: Basophils % 0.3 %; Eosinophils # 0.1 K/mcL (0.0-0.6); Eosinophils % 1.3 %; Hematocrit 28.2 % (37.5-50.1); Hemoglobin 8.7 g/dL (12.9-16.9); Immature Granulocytes % 0.3 % (0-4); Lymphocytes # 0.3 K/mcL (0.6-4.6); Lymphocytes % 3.5 %; Mean Corpuscular HGB Conc 30.9 g/dL (31.6-35.5); Mean Corpuscular Hemoglobin 29.4 pg (28.0-33.3); Mean Corpuscular Volume 95.3 fL (83.0-100.0); Mean Platelet Volume 11.4 fL (9.4-12.4); Monocytes # 1.2 K/mcL (0.0-1.3); Monocytes % 12.3 %; Neutrophils # 7.7 K/mcL (1.6-8.9); Platelet Count 145 K/mcL (140-400); Red Blood Count 2.96 M/mcL (4.19-5.50); Red Cell Distribution Width 16.7 % (11.5-14.5); Segmented Neutrophils % 82.3 %; White Blood Count 9.4 K/mcL (4.3-11.1)
[2020-06-08 15:34] LABS: INR 1.1; Prothrombin Time 12.7 Seconds (9.4-12.1)
[2020-06-08 15:37] LABS: Activated Partial Thrombo Time 29.6 Seconds (26.0-36.0)
[2020-06-08 15:59] LABS: Alanine Aminotransferase 8 Units/L (7-52); Albumin/Globulin Ratio 1.3 (1.1-2.2); Alkaline Phosphatase 105 Units/L (34-104); Aspartate Amino Transferase 21 Units/L (13-39); BUN/Creatinine Ratio 6 (6-26); Bilirubin,Direct 0.2 mg/dL (0.0-0.2); Bilirubin,Indirect 0.4 mg/dL (0.0-1.0); Bilirubin,Total 0.6 mg/dL (0.3-1.0); Blood Urea Nitrogen 22 mg/dL (6-20); Calcium 9.1 mg/dL (8.6-10.3); Carbon Dioxide 26 mEq/L (23-29); Chloride 96 mEq/L (98-107); Ethanol < 10 mg/dL (Less than 10); Globulin 3.1 g/dL (2.4-3.5); Glucose 54 mg/dL (70-105); Osmolality,Calculated 277 (280-300); Potassium 3.9 mEq/L (3.5-5.1); Sodium 133 mEq/L (136-145); Total Protein 7.1 g/dL (6.4-8.9); Troponin I 0.03 ng/mL (< 0.04); eGFR For African Americans 22 (> 60); eGFR For Non-African Americans 18 (> 60)
[2020-06-08] MEDS ORDERED: 0.9 % Sodium Chloride 500 ML IVC ONE ×2 (16:08→17:49)
[2020-06-08] MEDS ORDERED: Vancomycin 1,750 MG/517.5 ML IV.SOLN IVPB ONE (16:08)
[2020-06-08] MEDS ORDERED: Piperacillin/Tazobactam 3.375 GM in 0.9 % Sodium Chloride Mini Bag 100 ML IVPB ONE (16:08)
[2020-06-08] MEDS ORDERED: levoFLOXacin 750 MG/150 ML 750 MG/150 ML BAG IVPB ONE (16:08)
[2020-06-08] MEDS ORDERED: *HR* Norepinephrine 4 MG/4 ML VIAL IVC ONE (16:16)
[2020-06-08] MEDS ORDERED: 0.9 % Sodium Chloride 250 ML ONE (16:16)
[2020-06-08] MEDS: Norepinephrine 4 MG/254 ML IV.SOLN IVC SCH (16:23)
[2020-06-08 16:51] LABS: Bilirubin,Urine Negative (Negative); Blood,Urine Trace (Negative); Clarity,Urine Turbid (Clear); Color,Urine Orange (Yellow); Glucose,Urine (UA) Normal (Normal); Hyaline Casts,Urine Few per lpf (None Seen); Ketones,Urine Trace mg/dL (Negative); Leukocyte Esterase,Urine Trace (Negative); Mucus,Urine Few per lpf (None-Few); Nitrite,Urine Negative (Negative); Protein,Urine 50 mg/dL (Neg-Trace); RBC,Urine 0-3 per hpf (0-3); Specific Gravity,Urine 1.028 (1.010-1.025); Squamous Epithelial Cell,Urine Few per hpf (None-Few); Urobilinogen,Urine Normal (Normal); WBC,Urine 0-3 per hpf (0-3)
[2020-06-08 17:00] LABS: Amphetamine Screen,Urine Negative ng/mL (Cutoff=1000); Barbiturate Screen,Urine Negative ng/mL (Cutoff=200); Benzodiazepines Screen,Urine Negative ng/mL (Cutoff=200); Cannabinoid Screen,Urine Negative ng/mL (Cutoff = 50); Cocaine Screen,Urine Negative ng/mL (Cutoff= 300); Opiate Screen,Urine Positive ng/mL (Cutoff=300); Phencyclidine Screen,Urine Negative ng/mL (Cutoff=25)
[2020-06-08] MEDS ORDERED: Albumin 25% 25gram/100mL 25 GM/100 ML IV.SOLN IVPB ONE (20:16)
[2020-06-08] MEDS ORDERED: Isovue-370 500 ML BOTTLE IVP ONE (20:20)
[2020-06-08 22:29] LABS: Adenovirus Not Detected (Not Detect); Bordetella Pertussis Not Detected (Not Detect); Chlamydophila pneumoniae Not Detected (Not Detect); Coronavirus 229E Not Detected (Not Detect); Coronavirus HKU1 Not Detected (Not Detect); Coronavirus NL63 Not Detected (Not Detect); Coronavirus OC43 Not Detected (Not Detect); Human Metapneumovirus Not Detected (Not Detect); Human Rhinovirus/Enterovirus Not Detected (Not Detect); Influenza A Subtype 2009 H1 Not Detected (Not Detect); Influenza B Not Detected (Not Detect); Mycoplasma pneumoniae Not Detected (Not Detect); Parainfluenza Virus 1 Not Detected (Not Detect); Parainfluenza Virus 2 Not Detected (Not Detect); Parainfluenza Virus 3 Not Detected (Not Detect); Parainfluenza Virus 4 Not Detected (Not Detect); Respiratory Syncytial Virus Not Detected (Not Detect); SARS-CoV-2 Not Detected (Not Detect)
[2020-06-08] MEDS ORDERED: D5% in Water 1,000 ML IVC PRN (23:14)
[2020-06-08] MEDS ORDERED: Dextrose Gel 15 GM/37.5 ML TUBE PO PRN ×2 (23:14)
[2020-06-08] MEDS ORDERED: *HR* Dextrose 50 % in Water (Vial) 50 ML VIAL ONE (23:17)
[2020-06-08] MEDS ORDERED: Naloxone 0.4 MG/ML INJ IVP PRN (23:17)
[2020-06-08] MEDS: *HR* Dextrose 50 % in Water (Vial) 50 ML VIAL IVP PRN (23:55)
[2020-06-09] MEDS ORDERED: Piperacillin/Tazobactam 3.375 GM in 0.9 % Sodium Chloride Mini Bag 100 ML IVPB SCH
[2020-06-09] MEDS ORDERED: 0.9 % Sodium Chloride 500 ML IVC SCH (00:15)
[2020-06-09] MEDS ORDERED: D5% in Water 1,000 ML IVC SCH ×2 (00:45→05:25)
[2020-06-09 01:00] LABS: ABG Base Excess 3 mEq/L (-2 to 3); ABG HCO3 30 mEq/L (21-27); ABG Oxygen Saturation 97 % (95-98); ABG PCO2 58 mmHg (35-45); ABG PH 7.32 pH Units (7.32-7.45); ABG PO2 102 mmHg (85-104); ABG TCO2 32 mEq/L (20-26)
[2020-06-09] MEDS ORDERED: 0.9 % Sodium Chloride 500 ML ONE (02:54)
[2020-06-09 03:35] LABS: Basophils % 0.3 %; Immature Granulocytes % 0.3 % (0-4); Red Cell Distribution Width 16.8 % (11.5-14.5)
[2020-06-09 03:36] LABS: INR 1.2; Prothrombin Time 13.9 Seconds (9.4-12.1)
[2020-06-09 03:37] LABS: Eosinophils % 0.5 %; Hematocrit 26.4 % (37.5-50.1); Immature Platelets 6.8 % (1.1-6.1); Lymphocytes # 0.4 K/mcL (0.6-4.6); Lymphocytes % 5.5 %; Mean Corpuscular HGB Conc 30.3 g/dL (31.6-35.5); Mean Corpuscular Hemoglobin 28.3 pg (28.0-33.3); Mean Corpuscular Volume 93.3 fL (83.0-100.0); Mean Platelet Volume 11.2 fL (9.4-12.4); Monocytes # 1.1 K/mcL (0.0-1.3); Neutrophils # 6.4 K/mcL (1.6-8.9); Platelet Count 129 K/mcL (140-400); Red Blood Count 2.83 M/mcL (4.19-5.50); Segmented Neutrophils % 79.4 %
[2020-06-09 03:52] LABS: Albumin/Globulin Ratio 1.5 (1.1-2.2); Bilirubin,Total 0.5 mg/dL (0.3-1.0); Globulin 2.7 g/dL (2.4-3.5); Magnesium 1.7 mg/dL (1.6-2.6); Potassium 3.8 mEq/L (3.5-5.1); Total Protein 6.7 g/dL (6.4-8.9)
[2020-06-09] MEDS: *HR* Dextrose 50 % in Water (Vial) 50 ML VIAL IVP PRN (04:00)
[2020-06-09] MEDS: Piperacillin/Tazobactam 3.375 GM in 0.9 % Sodium Chloride Mini Bag 100 ML IVPB SCH ×2 (05:31→17:11)
[2020-06-09] MEDS: Norepinephrine 4 MG/254 ML IV.SOLN IVC SCH ×4 (05:53→20:10)
[2020-06-09] MEDS: Insulin LISPRO 300 UNITS/3 ML VIAL SUBQ SCH ×3 (07:30→16:41)
[2020-06-09] MEDS: Lactulose Oral Soln 20 GM/30 ML UDC PO SCH ×2 (07:35→19:59)
[2020-06-09] MEDS ORDERED: Acetaminophen 325 MG TABLET PO PRN (10:06)
[2020-06-09] MEDS: *HR* HYDROcodone/Acet 5/325 mg TABLET PO PRN (10:21)
[2020-06-09] MEDS: *HR* Heparin 5,000 UNIT/ML VIAL SQ SCH (18:12)
[2020-06-10 03:39] LABS: Basophils % 0.3 %; Eosinophils # 0.2 K/mcL (0.0-0.6); Eosinophils % 1.4 %; Hematocrit 27.6 % (37.5-50.1); Hemoglobin 8.6 g/dL (12.9-16.9); Immature Granulocytes % 0.5 % (0-4); Lymphocytes # 0.5 K/mcL (0.6-4.6); Lymphocytes % 4.4 %; Mean Corpuscular HGB Conc 31.2 g/dL (31.6-35.5); Mean Corpuscular Hemoglobin 28.6 pg (28.0-33.3); Mean Corpuscular Volume 91.7 fL (83.0-100.0); Mean Platelet Volume 10.7 fL (9.4-12.4); Monocytes # 1.2 K/mcL (0.0-1.3); Neutrophils # 8.6 K/mcL (1.6-8.9); Platelet Count 162 K/mcL (140-400); Red Blood Count 3.01 M/mcL (4.19-5.50); Red Cell Distribution Width 16.4 % (11.5-14.5); Segmented Neutrophils % 82.4 %; White Blood Count 10.5 K/mcL (4.3-11.1)
[2020-06-10 03:55] LABS: Albumin 3.7 g/dL (3.5-5.7); Albumin/Globulin Ratio 1.4 (1.1-2.2); Bilirubin,Total 0.6 mg/dL (0.3-1.0); Calcium 8.8 mg/dL (8.6-10.3); Globulin 2.7 g/dL (2.4-3.5); Magnesium 1.7 mg/dL (1.6-2.6); Potassium 3.9 mEq/L (3.5-5.1); Total Protein 6.4 g/dL (6.4-8.9)
[2020-06-10] MEDS: Norepinephrine 4 MG/254 ML IV.SOLN IVC SCH (05:24)
[2020-06-10] MEDS: Piperacillin/Tazobactam 3.375 GM in 0.9 % Sodium Chloride Mini Bag 100 ML IVPB SCH ×2 (06:13→16:56)
[2020-06-10] MEDS: *HR* Heparin 5,000 UNIT/ML VIAL SQ SCH (06:13)
[2020-06-10] MEDS: Insulin LISPRO 300 UNITS/3 ML VIAL SUBQ SCH ×3 (07:54→15:10)
[2020-06-10] MEDS: Lactulose Oral Soln 20 GM/30 ML UDC PO SCH (07:54)
[2020-06-10] MEDS ORDERED: 0.9 % Sodium Chloride 1,000 ML ONE (09:07)
[2020-06-10] MEDS ORDERED: *HR* Heparin 10,000 UNIT/10 ML VIAL IV PRN ×2 (09:35→19:35)
[2020-06-10] MEDS ORDERED: Albumin 25% 25gram/100mL 25 GM/100 ML IV.SOLN IVPB PRN ×2 (09:35→19:35)
[2020-06-10] MEDS ORDERED: 0.9 % Sodium Chloride 250 ML IVC PRN ×2 (09:35→19:35)
[2020-06-10] MEDS ORDERED: 0.9 % Sodium Chloride 1,000 ML PRIME SCH ×2 (09:45→19:35)
[2020-06-10] MEDS: *HR* HYDROcodone/Acet 5/325 mg TABLET PO PRN ×2 (11:08→16:56)
[2020-06-10] MEDS ORDERED: *HR* Heparin 5,000 UNIT/ML VIAL IVP ONE (13:37)
[2020-06-10] MEDS ORDERED: *HR* Heparin 5,000 UNIT/ML VIAL IVP PRN ×4 (13:37→19:35)
[2020-06-10] MEDS ORDERED: Heparin 25,000UNIT/250ML 1/2NS 25,000 UNIT/250 ML IV.SOLN IVC SCH (13:45)
[2020-06-10 15:11] LABS: Hematocrit 25.9 % (37.5-50.1); Hemoglobin 8.1 g/dL (12.9-16.9); Mean Corpuscular HGB Conc 31.3 g/dL (31.6-35.5); Mean Corpuscular Hemoglobin 28.7 pg (28.0-33.3); Mean Corpuscular Volume 91.8 fL (83.0-100.0); Mean Platelet Volume 10.1 fL (9.4-12.4); Platelet Count 136 K/mcL (140-400); Red Blood Count 2.82 M/mcL (4.19-5.50); Red Cell Distribution Width 16.4 % (11.5-14.5); White Blood Count 8.2 K/mcL (4.3-11.1)
[2020-06-10 15:29] LABS: Heparin anti-factor XA UFH < 0.04 IU/mL (0.30-0.70); INR 1.2; Prothrombin Time 13.5 Seconds (9.4-12.1)
[2020-06-10 15:31] LABS: Activated Partial Thrombo Time 29.3 Seconds (26.0-36.0)
[2020-06-10] MEDS ORDERED: levoFLOXacin 500 MG/100 ML 500 MG/100 ML BAG IVPB SCH (18:00)
[2020-06-10] MEDS ORDERED: *HR* Dextrose 50 % in Water (Vial) 50 ML VIAL IVP PRN (19:35)
[2020-06-10] MEDS ORDERED: Naloxone 0.4 MG/ML INJ IVP PRN (19:35)
[2020-06-10] MEDS ORDERED: D5% in Water 1,000 ML IVC PRN (19:35)
[2020-06-10] MEDS ORDERED: Fluticasone Propionate Nasal 50 MCG/SPRAY BOTTLE NS PRN (19:35)
[2020-06-10] MEDS ORDERED: Cholecalciferol (D-3) 1,000 UNIT (25MCG) TABLET PO SCH (19:35)
[2020-06-10] MEDS ORDERED: Ipratropium/Albuterol Neb 3 ML IH PRN (19:35)
[2020-06-10] MEDS ORDERED: Dextrose Gel 15 GM/37.5 ML TUBE PO PRN ×2 (19:35)
[2020-06-10] MEDS: Heparin 25,000UNIT/250ML 1/2NS 25,000 UNIT/250 ML IV.SOLN IVC SCH (20:35)
[2020-06-10] MEDS: Gabapentin 100 MG CAPSULE PO SCH (20:42)
[2020-06-10] MEDS: Nystatin POWDER 30 GM BOTTLE TP SCH (23:30)
[2020-06-10] MEDS: Acetaminophen 325 MG TABLET PO PRN (23:31)
[2020-06-10] MEDS: Vancomycin Oral Soln 125 MG/2.5 ML UDC PO SCH (23:32)
[2020-06-11 03:59] LABS: Lymphocytes % 5.2 %
[2020-06-11 04:01] LABS: Basophils % 0.4 %; Eosinophils # 0.1 K/mcL (0.0-0.6); Eosinophils % 1.5 %; Hematocrit 25.4 % (37.5-50.1); Hemoglobin 7.6 g/dL (12.9-16.9); Immature Granulocytes % 0.6 % (0-4); Immature Platelets 5.5 % (1.1-6.1); Lymphocytes # 0.4 K/mcL (0.6-4.6); Mean Corpuscular HGB Conc 29.9 g/dL (31.6-35.5); Mean Corpuscular Volume 93.7 fL (83.0-100.0); Mean Platelet Volume 11.3 fL (9.4-12.4); Monocytes # 0.9 K/mcL (0.0-1.3); Monocytes % 10.8 %; Neutrophils # 6.9 K/mcL (1.6-8.9); Platelet Count 118 K/mcL (140-400); Red Blood Count 2.71 M/mcL (4.19-5.50); Red Cell Distribution Width 16.4 % (11.5-14.5); Segmented Neutrophils % 81.5 %; White Blood Count 8.4 K/mcL (4.3-11.1)
[2020-06-11 04:18] LABS: Albumin 3.5 g/dL (3.5-5.7); Albumin/Globulin Ratio 1.4 (1.1-2.2); Bilirubin,Total 0.7 mg/dL (0.3-1.0); Calcium 8.6 mg/dL (8.6-10.3); Globulin 2.5 g/dL (2.4-3.5); Magnesium 1.6 mg/dL (1.6-2.6); Potassium 3.8 mEq/L (3.5-5.1)
[2020-06-11] MEDS: Piperacillin/Tazobactam 3.375 GM in 0.9 % Sodium Chloride Mini Bag 100 ML IVPB SCH ×2 (05:46→17:29)
[2020-06-11] MEDS: Insulin LISPRO 300 UNITS/3 ML VIAL SUBQ SCH ×3 (08:40→17:05)
[2020-06-11] MEDS: Cholecalciferol (D-3) 1,000 UNIT (25MCG) TABLET PO SCH ×2 (08:43→08:44)
[2020-06-11] MEDS: Loratadine 10 MG TABLET PO SCH (08:43)
[2020-06-11] MEDS: Multivit/Ca/Min/Fe/FA 1 TAB TABLET PO SCH (08:43)
[2020-06-11] MEDS: Gabapentin 100 MG CAPSULE PO SCH ×2 (08:43→21:46)
[2020-06-11] MEDS: Vancomycin Oral Soln 125 MG/2.5 ML UDC PO SCH ×4 (08:43→21:47)
[2020-06-11] MEDS: Folic Acid 1 MG TABLET PO SCH (08:44)
[2020-06-11] MEDS: Nystatin POWDER 30 GM BOTTLE TP SCH ×3 (08:45→21:49)
[2020-06-11] MEDS: Triamcinolone Acet 0.1% CRM 15 GM TUBE TP SCH (09:46)
[2020-06-11] MEDS: Heparin 25,000UNIT/250ML 1/2NS 25,000 UNIT/250 ML IV.SOLN IVC SCH (10:48)
[2020-06-11] MEDS ORDERED: Isovue-370 500 ML BOTTLE IVP ONE (16:50)
[2020-06-11] MEDS: *HR* HYDROcodone/Acet 5/325 mg TABLET PO PRN (17:44)
[2020-06-11 21:32] LABS: Adenovirus F 40/41 PCR Not detected (Not detect); Astrovirus PCR Not detected (Not detect); C.difficile Toxin A/B Gene PCR Not detected (Not detect); Campylobacter by PCR Not detected (Not detect); Cryptosporidium by PCR Not detected (Not detect); Cyclospora cayetanensis PCR Not detected (Not detect); E. coli O157 by PCR Not detected (Not detect); Entamoeba histolytica PCR Not detected (Not detect); Enteroaggregative E.coli(EAEC) Not detected (Not detect); Enteropathogenic E.coli(EPEC) Not detected (Not detect); Enterotoxigenic E.coli (ETEC) Not detected (Not detect); Giardia lamblia PCR Not detected (Not detect); Norovirus GI/GII PCR Not detected (Not detect); Plesiomonas shigelloides PCR Not detected (Not detect); Rotavirus A PCR Not detected (Not detect); Salmonella PCR Not detected (Not detect); Sapovirus PCR Not detected (Not detect); Shig/EnteroinvasiveE coli EIEC Not detected (Not detect); Shigalike tox-prod E coli STEC Not detected (Not detect); Vibrio PCR Not detected (Not detect); Vibrio cholerae PCR Not detected (Not detect); Yersinia enterocolitica PCR Not detected (Not detect)
[2020-06-11] MEDS: Acetaminophen 325 MG TABLET PO PRN (22:33)
[2020-06-12] MEDS ORDERED: Ondansetron 4 MG/2 ML VIAL IVP ONE (00:52)
[2020-06-12 04:25] LABS: Basophils # 0.1 K/mcL (0.0-0.2); Basophils % 0.5 %; Eosinophils # 0.2 K/mcL (0.0-0.6); Eosinophils % 2.1 %; Hematocrit 26.3 % (37.5-50.1); Hemoglobin 8.1 g/dL (12.9-16.9); Immature Granulocytes % 0.3 % (0-4); Lymphocytes # 0.6 K/mcL (0.6-4.6); Lymphocytes % 5.4 %; Mean Corpuscular HGB Conc 30.8 g/dL (31.6-35.5); Mean Corpuscular Volume 94.3 fL (83.0-100.0); Mean Platelet Volume 10.8 fL (9.4-12.4); Monocytes % 9.2 %; Neutrophils # 9.1 K/mcL (1.6-8.9); Platelet Count 142 K/mcL (140-400); Red Blood Count 2.79 M/mcL (4.19-5.50); Red Cell Distribution Width 16.6 % (11.5-14.5); Segmented Neutrophils % 82.5 %
[2020-06-12 04:52] LABS: Albumin 3.6 g/dL (3.5-5.7); Albumin/Globulin Ratio 1.3 (1.1-2.2); Bilirubin,Total 0.6 mg/dL (0.3-1.0); Globulin 2.8 g/dL (2.4-3.5); Potassium 3.9 mEq/L (3.5-5.1); Total Protein 6.4 g/dL (6.4-8.9)
[2020-06-12] MEDS: Heparin 25,000UNIT/250ML 1/2NS 25,000 UNIT/250 ML IV.SOLN IVC SCH ×2 (05:38→05:45)
[2020-06-12] MEDS: Piperacillin/Tazobactam 3.375 GM in 0.9 % Sodium Chloride Mini Bag 100 ML IVPB SCH ×2 (05:42→17:02)
[2020-06-12] MEDS: Insulin LISPRO 300 UNITS/3 ML VIAL SUBQ SCH ×3 (08:41→16:49)
[2020-06-12] MEDS: Cholecalciferol (D-3) 1,000 UNIT (25MCG) TABLET PO SCH ×3 (09:00→09:33)
[2020-06-12] MEDS: Vancomycin Oral Soln 125 MG/2.5 ML UDC PO SCH ×4 (09:23→20:27)
[2020-06-12] MEDS: Loratadine 10 MG TABLET PO SCH (09:24)
[2020-06-12] MEDS: Multivit/Ca/Min/Fe/FA 1 TAB TABLET PO SCH (09:24)
[2020-06-12] MEDS: Folic Acid 1 MG TABLET PO SCH (09:24)
[2020-06-12] MEDS: Gabapentin 100 MG CAPSULE PO SCH ×2 (09:24→20:29)
[2020-06-12] MEDS: Nystatin POWDER 30 GM BOTTLE TP SCH ×3 (09:29→20:29)
[2020-06-12] MEDS: Triamcinolone Acet 0.1% CRM 15 GM TUBE TP SCH (09:31)
[2020-06-12] MEDS: *HR* HYDROcodone/Acet 5/325 mg TABLET PO PRN (09:35)
[2020-06-13 01:18] LABS: Basophils # 0.1 K/mcL (0.0-0.2); Basophils % 0.7 %; Eosinophils # 0.3 K/mcL (0.0-0.6); Eosinophils % 2.8 %; Hematocrit 25.8 % (37.5-50.1); Hemoglobin 7.8 g/dL (12.9-16.9); Immature Granulocytes % 0.4 % (0-4); Lymphocytes # 0.6 K/mcL (0.6-4.6); Lymphocytes % 6.3 %; Mean Corpuscular HGB Conc 30.2 g/dL (31.6-35.5); Mean Corpuscular Hemoglobin 28.3 pg (28.0-33.3); Mean Corpuscular Volume 93.5 fL (83.0-100.0); Mean Platelet Volume 10.6 fL (9.4-12.4); Monocytes % 9.3 %; Neutrophils # 8.2 K/mcL (1.6-8.9); Platelet Count 155 K/mcL (140-400); Red Blood Count 2.76 M/mcL (4.19-5.50); Red Cell Distribution Width 16.7 % (11.5-14.5); Segmented Neutrophils % 80.5 %; White Blood Count 10.2 K/mcL (4.3-11.1)
[2020-06-13 01:36] LABS: Albumin 3.6 g/dL (3.5-5.7); Albumin/Globulin Ratio 1.2 (1.1-2.2); Bilirubin,Total 0.6 mg/dL (0.3-1.0); Globulin 2.9 g/dL (2.4-3.5); Potassium 4.1 mEq/L (3.5-5.1); Total Protein 6.5 g/dL (6.4-8.9)
[2020-06-13] MEDS: Piperacillin/Tazobactam 3.375 GM in 0.9 % Sodium Chloride Mini Bag 100 ML IVPB SCH (05:44)
[2020-06-13] MEDS ORDERED: *HR* Heparin 10,000 UNIT/10 ML VIAL IV PRN (07:41)
[2020-06-13] MEDS ORDERED: 0.9 % Sodium Chloride 250 ML IVC PRN (07:41)
[2020-06-13] MEDS ORDERED: 0.9 % Sodium Chloride 1,000 ML PRIME SCH (07:45)
[2020-06-13] MEDS: Loratadine 10 MG TABLET PO SCH (09:18)
[2020-06-13] MEDS: Multivit/Ca/Min/Fe/FA 1 TAB TABLET PO SCH (09:18)
[2020-06-13] MEDS: Folic Acid 1 MG TABLET PO SCH (09:19)
[2020-06-13] MEDS: Gabapentin 100 MG CAPSULE PO SCH ×2 (09:20→19:39)
[2020-06-13] MEDS: Vancomycin Oral Soln 125 MG/2.5 ML UDC PO SCH ×2 (09:20→13:17)
[2020-06-13] MEDS: Insulin LISPRO 300 UNITS/3 ML VIAL SUBQ SCH ×3 (09:20→17:09)
[2020-06-13] MEDS: Nystatin POWDER 30 GM BOTTLE TP SCH ×3 (09:20→19:39)
[2020-06-13] MEDS ORDERED: 0.9 % Sodium Chloride 1,000 ML ONE (10:35)
[2020-06-13] MEDS: Triamcinolone Acet 0.1% CRM 15 GM TUBE TP SCH (11:17)
[2020-06-13] MEDS: *HR* Heparin 5,000 UNIT/ML VIAL SQ SCH (17:11)
[2020-06-13] MEDS: *HR* HYDROcodone/Acet 5/325 mg TABLET PO PRN (19:43)
[2020-06-14 02:24] LABS: Hematocrit 25.1 % (37.5-50.1); Mean Corpuscular Volume 93.7 fL (83.0-100.0); Red Blood Count 2.68 M/mcL (4.19-5.50)
[2020-06-14 02:26] LABS: Basophils % 0.5 %; Eosinophils # 0.2 K/mcL (0.0-0.6); Eosinophils % 2.2 %; Hemoglobin 7.7 g/dL (12.9-16.9); Immature Granulocytes % 0.2 % (0-4); Immature Platelets 5.7 % (1.1-6.1); Lymphocytes # 0.6 K/mcL (0.6-4.6); Lymphocytes % 7.2 %; Mean Corpuscular HGB Conc 30.7 g/dL (31.6-35.5); Mean Corpuscular Hemoglobin 28.7 pg (28.0-33.3); Mean Platelet Volume 10.7 fL (9.4-12.4); Monocytes # 0.9 K/mcL (0.0-1.3); Monocytes % 10.6 %; Neutrophils # 6.6 K/mcL (1.6-8.9); Platelet Count 136 K/mcL (140-400); Red Cell Distribution Width 16.9 % (11.5-14.5); Segmented Neutrophils % 79.3 %; White Blood Count 8.3 K/mcL (4.3-11.1)
[2020-06-14 02:40] LABS: Albumin 3.6 g/dL (3.5-5.7); Albumin/Globulin Ratio 1.2 (1.1-2.2); Bilirubin,Total 0.5 mg/dL (0.3-1.0); Globulin 2.9 g/dL (2.4-3.5); Total Protein 6.5 g/dL (6.4-8.9)
[2020-06-14] MEDS: *HR* Heparin 5,000 UNIT/ML VIAL SQ SCH (06:33)
[2020-06-14] MEDS: Insulin LISPRO 300 UNITS/3 ML VIAL SUBQ SCH ×2 (07:36→11:24)
[2020-06-14] MEDS ORDERED: *HR* Heparin 10,000 UNIT/10 ML VIAL IV PRN (07:41)
[2020-06-14] MEDS ORDERED: 0.9 % Sodium Chloride 250 ML IVC PRN (07:41)
[2020-06-14] MEDS ORDERED: Albumin 25% 25gram/100mL 25 GM/100 ML IV.SOLN IVPB PRN (07:41)
[2020-06-14] MEDS ORDERED: 0.9 % Sodium Chloride 1,000 ML PRIME SCH (07:45)
[2020-06-14] MEDS: Cholecalciferol (D-3) 1,000 UNIT (25MCG) TABLET PO SCH (08:07)
[2020-06-14] MEDS: Gabapentin 100 MG CAPSULE PO SCH (08:07)
[2020-06-14] MEDS: Triamcinolone Acet 0.1% CRM 15 GM TUBE TP SCH (08:07)
[2020-06-14] MEDS: Loratadine 10 MG TABLET PO SCH (08:07)
[2020-06-14] MEDS: Folic Acid 1 MG TABLET PO SCH (08:07)
[2020-06-14] MEDS: Multivit/Ca/Min/Fe/FA 1 TAB TABLET PO SCH (08:07)
[2020-06-14] MEDS: Nystatin POWDER 30 GM BOTTLE TP SCH ×2 (08:08→15:14)
[2020-06-14] MEDS ORDERED: Lactobacillus 1 EACH CAP.SPRINK PO SCH (11:30)
[2020-06-14 15:44] VITALS: BP 116/77
== END 2020-06-14 17:09 | disposition home health service (06) ==
LOC: EMEROOARM 14:23 → ICNU 14:23 → SUATTDRO 23:18 → 2ANU 06-12 15:38
PROVIDERS: ADMIT Internal Medicine; ATTEND Internal Medicine

== ENCOUNTER 2020-06-19 22:04 | Inpatient (IN) ==
[2020-06-19 22:42] LABS: Basophils % 0.3 %; Eosinophils # 0.1 K/mcL (0.0-0.6); Eosinophils % 1.3 %; Hematocrit 25.2 % (37.5-50.1); Hemoglobin 7.7 g/dL (12.9-16.9); Immature Granulocytes % 0.5 % (0-4); Lymphocytes # 0.3 K/mcL (0.6-4.6); Lymphocytes % 2.9 %; Mean Corpuscular HGB Conc 30.6 g/dL (31.6-35.5); Mean Corpuscular Hemoglobin 28.5 pg (28.0-33.3); Mean Corpuscular Volume 93.3 fL (83.0-100.0); Mean Platelet Volume 10.7 fL (9.4-12.4); Monocytes # 0.7 K/mcL (0.0-1.3); Monocytes % 6.8 %; Neutrophils # 9.6 K/mcL (1.6-8.9); Platelet Count 199 K/mcL (140-400); Segmented Neutrophils % 88.2 %; White Blood Count 10.8 K/mcL (4.3-11.1)
[2020-06-19 22:50] LABS: VBG HCO3 27 mEq/L (21-27); VBG PCO2 57 mmHg (41-51); VBG PH 7.28 pH Units (7.32-7.42); VBG PO2 213 mmHg (25-50)
[2020-06-19 22:58] LABS: INR 1.2; Prothrombin Time 13.4 Seconds (9.4-12.1)
[2020-06-19 23:18] LABS: Alanine Aminotransferase 7 Units/L (7-52); Albumin 3.9 g/dL (3.5-5.7); Albumin/Globulin Ratio 1.1 (1.1-2.2); Alkaline Phosphatase 116 Units/L (34-104); Aspartate Amino Transferase 20 Units/L (13-39); BUN/Creatinine Ratio 8 (6-26); Bilirubin,Direct 0.1 mg/dL (0.0-0.2); Bilirubin,Indirect 0.4 mg/dL (0.0-1.0); Bilirubin,Total 0.5 mg/dL (0.3-1.0); Blood Urea Nitrogen 35 mg/dL (6-20); Calcium 9.1 mg/dL (8.6-10.3); Carbon Dioxide 24 mEq/L (23-29); Chloride 95 mEq/L (98-107); Ethanol < 10 mg/dL (Less than 10); Globulin 3.4 g/dL (2.4-3.5); Glucose 28 mg/dL (70-105); Osmolality,Calculated 278 (280-300); Potassium 4.4 mEq/L (3.5-5.1); Sodium 132 mEq/L (136-145); Total Protein 7.3 g/dL (6.4-8.9); Troponin I 0.08 ng/mL (< 0.04); eGFR For African Americans 18 (> 60); eGFR For Non-African Americans 15 (> 60)
[2020-06-19] MEDS ORDERED: *HR* Dextrose 50 % in Water (Vial) 50 ML VIAL IVP ONE (23:18)
[2020-06-19] MEDS ORDERED: *HR* Dextrose 50 % in Water (Vial) 50 ML VIAL ONE (23:21)
[2020-06-20] MEDS ORDERED: *HR* Dextrose 50 % in Water (Vial) 50 ML VIAL IVP ONE ×3 (00:32→06:23)
[2020-06-20 00:40] LABS: Bilirubin,Urine Small (Negative); Blood,Urine Negative (Negative); Clarity,Urine Clear (Clear); Color,Urine Yellow (Yellow); Glucose,Urine (UA) Normal (Normal); Ketones,Urine Negative (Negative); Leukocyte Esterase,Urine Negative (Negative); Nitrite,Urine Negative (Negative); PH,Urine 5.5 pH Units (5.0-8.0); Protein,Urine 50 mg/dL (Neg-Trace); RBC,Urine 0-3 per hpf (0-3); Specific Gravity,Urine > 1.030 (1.010-1.025); Squamous Epithelial Cell,Urine Few per hpf (None-Few); Urobilinogen,Urine Normal (Normal)
[2020-06-20 01:06] LABS: Amphetamine Screen,Urine Negative ng/mL (Cutoff=1000); Barbiturate Screen,Urine Negative ng/mL (Cutoff=200); Benzodiazepines Screen,Urine Negative ng/mL (Cutoff=200); Cannabinoid Screen,Urine Negative ng/mL (Cutoff = 50); Cocaine Screen,Urine Negative ng/mL (Cutoff= 300); Opiate Screen,Urine Positive ng/mL (Cutoff=300); Phencyclidine Screen,Urine Negative ng/mL (Cutoff=25)
[2020-06-20] MEDS ORDERED: Ondansetron 4 MG/2 ML VIAL IVP PRN (06:26)
[2020-06-20] MEDS ORDERED: Naloxone 0.4 MG/ML INJ IVP PRN (06:26)
[2020-06-20] MEDS ORDERED: Dextrose Gel 15 GM/37.5 ML TUBE PO PRN (06:30)
[2020-06-20] MEDS ORDERED: D5% in Water 1,000 ML IVC PRN (06:30)
[2020-06-20] MEDS ORDERED: Dextrose 50 % in Water (Vial) 100 ML in D5% in 0.45% NACL 1,000 ML IVC SCH ×2 (06:45→22:45)
[2020-06-20] MEDS ORDERED: Albumin 25% 25gram/100mL 25 GM/100 ML IV.SOLN IVPB PRN (06:58)
[2020-06-20] MEDS ORDERED: 0.9 % Sodium Chloride 250 ML IVC PRN (06:58)
[2020-06-20] MEDS ORDERED: 0.9 % Sodium Chloride 1,000 ML PRIME SCH (07:00)
[2020-06-20] MEDS: *HR* Dextrose 50 % in Water (Vial) 50 ML VIAL IVP PRN ×4 (08:15→23:37)
[2020-06-20] MEDS: Dextrose Gel 15 GM/37.5 ML TUBE PO PRN ×3 (10:45→11:41)
[2020-06-20] MEDS ORDERED: *HR* Heparin 10,000 UNIT/10 ML VIAL IV PRN (11:04)
[2020-06-20] MEDS: GuaiFENesin Liq 200 MG/10 ML UDC PO PRN (11:41)
[2020-06-20] MEDS: Insulin LISPRO 300 UNITS/3 ML VIAL SUBQ SCH ×3 (12:51→15:45)
[2020-06-20] MEDS: Furosemide 40 MG/4 ML VIAL IVP SCH ×2 (12:55→13:04)
[2020-06-20 14:10] LABS: Uric Acid 3.6 mg/dL (2.3-7.6)
[2020-06-20] MEDS ORDERED: Fluticasone Propionate Nasal 50 MCG/SPRAY BOTTLE NS PRN (15:09)
[2020-06-20] MEDS ORDERED: Ipratropium/Albuterol Neb 3 ML IH PRN (15:09)
[2020-06-20] MEDS: Dextrose 50 % in Water (Vial) 100 ML in D5% in 0.45% NACL 1,000 ML IVC SCH (17:03)
[2020-06-20] MEDS: Lactulose Oral Soln 20 GM/30 ML UDC PO SCH (21:01)
[2020-06-20] MEDS: Gabapentin 100 MG CAPSULE PO SCH (21:01)
[2020-06-21 01:21] LABS: Basophils % 0.2 %; Eosinophils # 0.2 K/mcL (0.0-0.6); Eosinophils % 2.4 %; Hematocrit 23.1 % (37.5-50.1); Immature Granulocytes % 0.4 % (0-4); Lymphocytes # 0.3 K/mcL (0.6-4.6); Lymphocytes % 3.6 %; Mean Corpuscular HGB Conc 30.3 g/dL (31.6-35.5); Mean Corpuscular Hemoglobin 28.9 pg (28.0-33.3); Mean Corpuscular Volume 95.5 fL (83.0-100.0); Mean Platelet Volume 10.8 fL (9.4-12.4); Monocytes # 0.8 K/mcL (0.0-1.3); Monocytes % 10.1 %; Neutrophils # 6.9 K/mcL (1.6-8.9); Platelet Count 153 K/mcL (140-400); Red Blood Count 2.42 M/mcL (4.19-5.50); Red Cell Distribution Width 16.8 % (11.5-14.5); Segmented Neutrophils % 83.3 %; White Blood Count 8.3 K/mcL (4.3-11.1)
[2020-06-21 01:47] LABS: Albumin 3.6 g/dL (3.5-5.7); Albumin/Globulin Ratio 1.2 (1.1-2.2); Bilirubin,Total 0.4 mg/dL (0.3-1.0); Calcium 8.5 mg/dL (8.6-10.3); Magnesium 1.4 mg/dL (1.6-2.6); Phosphorous 4.3 mg/dL (2.7-4.5); Potassium 4.2 mEq/L (3.5-5.1); Total Protein 6.6 g/dL (6.4-8.9)
[2020-06-21 02:25] LABS: Estimated Average Glucose 100 mg/dl; Hemoglobin A1C 5.1 %
[2020-06-21] MEDS ORDERED: Acetaminophen 325 MG TABLET PO ONE (04:00)
[2020-06-21] MEDS ORDERED: Octreotide 50 MCG/ML INJ IVP ONE (04:45)
[2020-06-21] MEDS: *HR* Dextrose 50 % in Water (Vial) 50 ML VIAL IVP PRN ×2 (04:52→10:11)
[2020-06-21] MEDS ORDERED: Furosemide 20 MG/2 ML VIAL IVP ONE (07:55)
[2020-06-21] MEDS: Tiotropium 10 INH DOSE IH SCH (08:13)
[2020-06-21] MEDS: Norepinephrine 4 MG/254 ML IV.SOLN IVC SCH (08:56)
[2020-06-21 09:00] LABS: Hematocrit 23.9 % (37.5-50.1); Hemoglobin 7.1 g/dL (12.9-16.9); Mean Corpuscular HGB Conc 29.7 g/dL (31.6-35.5); Mean Corpuscular Hemoglobin 28.4 pg (28.0-33.3); Mean Corpuscular Volume 95.6 fL (83.0-100.0); Mean Platelet Volume 10.9 fL (9.4-12.4); Platelet Count 164 K/mcL (140-400); Red Cell Distribution Width 16.6 % (11.5-14.5); White Blood Count 10.1 K/mcL (4.3-11.1)
[2020-06-21] MEDS: Insulin LISPRO 300 UNITS/3 ML VIAL SUBQ SCH ×3 (09:24→16:20)
[2020-06-21] MEDS: Lactobacillus 1 EACH CAP.SPRINK PO SCH (09:25)
[2020-06-21] MEDS: Loratadine 10 MG TABLET PO SCH (09:25)
[2020-06-21] MEDS: Folic Acid 1 MG TABLET PO SCH (09:26)
[2020-06-21] MEDS: Lactulose Oral Soln 20 GM/30 ML UDC PO SCH ×4 (09:26→20:22)
[2020-06-21] MEDS: Gabapentin 100 MG CAPSULE PO SCH ×2 (09:26→20:22)
[2020-06-21] MEDS ORDERED: Lidocaine 1% 0 ML ONE (09:33)
[2020-06-21] MEDS: Dextrose 50 % in Water (Vial) 100 ML in D5% in 0.45% NACL 1,000 ML IVC SCH (11:34)
[2020-06-21] MEDS ORDERED: *HR* Heparin 5,000 UNIT/ML VIAL IVP PRN ×2 (12:59)
[2020-06-21] MEDS ORDERED: Vancomycin 1,750 MG in 0.9 % Sodium Chloride 250 ML IVPB SCH (13:00)
[2020-06-21] MEDS ORDERED: Vancomycin 1,750 MG/517.5 ML IV.SOLN IVPB ONE (13:30)
[2020-06-21 13:33] LABS: Heparin anti-factor XA UFH < 0.04 IU/mL (0.30-0.70); INR 1.1; Prothrombin Time 13.2 Seconds (9.4-12.1)
[2020-06-21] MEDS: Heparin 25,000UNIT/250ML 1/2NS 25,000 UNIT/250 ML IV.SOLN IVC SCH (13:34)
[2020-06-21 13:37] LABS: VBG Ionized Calcium 1.05 mmol/L (1.15-1.35)
[2020-06-21 13:39] LABS: Hematocrit 23.6 % (37.5-50.1); Hemoglobin 7.1 g/dL (12.9-16.9); Mean Corpuscular HGB Conc 30.1 g/dL (31.6-35.5); Mean Corpuscular Hemoglobin 28.6 pg (28.0-33.3); Mean Corpuscular Volume 95.2 fL (83.0-100.0); Mean Platelet Volume 10.6 fL (9.4-12.4); Platelet Count 195 K/mcL (140-400); Red Blood Count 2.48 M/mcL (4.19-5.50); Red Cell Distribution Width 16.7 % (11.5-14.5); White Blood Count 9.2 K/mcL (4.3-11.1)
[2020-06-21 13:54] LABS: Albumin 3.8 g/dL (3.5-5.7); Albumin/Globulin Ratio 1.2 (1.1-2.2); Bilirubin,Total 0.5 mg/dL (0.3-1.0); Calcium 8.8 mg/dL (8.6-10.3); Globulin 3.2 g/dL (2.4-3.5); Magnesium 1.6 mg/dL (1.6-2.6); Phosphorous 4.7 mg/dL (2.7-4.5); Potassium 4.5 mEq/L (3.5-5.1)
[2020-06-21] MEDS ORDERED: *HR* Heparin 5,000 UNIT/ML VIAL SQ SCH (14:00)
[2020-06-21] MEDS: Piperacillin/Tazobactam 3.375 GM in 0.9 % Sodium Chloride Mini Bag 100 ML IVPB SCH (17:37)
[2020-06-21] MEDS: Pantoprazole 40 MG VIAL IVP SCH (17:37)
[2020-06-21 19:53] LABS: Bacteria,Urine Few per hpf (None-Few); Bilirubin,Urine Small (Negative); Blood,Urine Large (Negative); Budding Yeast,Urine Many per hpf (None Seen); Clarity,Urine Ex.Turbid (Clear); Color,Urine Yellow (Yellow); Glucose,Urine (UA) Normal (Normal); Ketones,Urine Negative (Negative); Leukocyte Esterase,Urine Large (Negative); Nitrite,Urine Negative (Negative); Protein,Urine >=300 mg/dL (Neg-Trace); RBC,Urine 30-50 per hpf (0-3); Urobilinogen,Urine Normal (Normal); WBC,Urine TNTC per hpf (0-3)
[2020-06-21] MEDS: Doxycycline 100 MG CAPSULE PO SCH (20:21)
[2020-06-22] MEDS: Dextrose 50 % in Water (Vial) 100 ML in D5% in 0.45% NACL 1,000 ML IVC SCH ×2 (01:09→08:51)
[2020-06-22] MEDS: GuaiFENesin Liq 200 MG/10 ML UDC PO PRN (02:07)
[2020-06-22 02:49] LABS: Basophils # 0.1 K/mcL (0.0-0.2); Basophils % 0.6 %; Eosinophils # 0.3 K/mcL (0.0-0.6); Eosinophils % 3.6 %; Hematocrit 22.6 % (37.5-50.1); Hemoglobin 6.9 g/dL (12.9-16.9); Immature Granulocytes % 0.3 % (0-4); Lymphocytes # 0.5 K/mcL (0.6-4.6); Lymphocytes % 5.9 %; Mean Corpuscular HGB Conc 30.5 g/dL (31.6-35.5); Mean Corpuscular Hemoglobin 29.1 pg (28.0-33.3); Mean Corpuscular Volume 95.4 fL (83.0-100.0); Mean Platelet Volume 10.7 fL (9.4-12.4); Monocytes # 0.8 K/mcL (0.0-1.3); Monocytes % 10.3 %; Neutrophils # 6.2 K/mcL (1.6-8.9); Platelet Count 161 K/mcL (140-400); Red Blood Count 2.37 M/mcL (4.19-5.50); Red Cell Distribution Width 16.6 % (11.5-14.5); Segmented Neutrophils % 79.3 %; White Blood Count 7.8 K/mcL (4.3-11.1)
[2020-06-22 03:08] LABS: Calcium 8.6 mg/dL (8.6-10.3); Potassium 4.3 mEq/L (3.5-5.1)
[2020-06-22] MEDS: Heparin 25,000UNIT/250ML 1/2NS 25,000 UNIT/250 ML IV.SOLN IVC SCH (05:08)
[2020-06-22] MEDS: Pantoprazole 40 MG VIAL IVP SCH ×2 (05:20→16:32)
[2020-06-22] MEDS: Piperacillin/Tazobactam 3.375 GM in 0.9 % Sodium Chloride Mini Bag 100 ML IVPB SCH ×2 (05:20→16:32)
[2020-06-22] MEDS ORDERED: Albumin 25% 25gram/100mL 25 GM/100 ML IV.SOLN IVPB PRN (07:11)
[2020-06-22] MEDS ORDERED: 0.9 % Sodium Chloride 250 ML IVC PRN (07:11)
[2020-06-22] MEDS: Tiotropium 10 INH DOSE IH SCH (07:41)
[2020-06-22] MEDS: Insulin LISPRO 300 UNITS/3 ML VIAL SUBQ SCH ×3 (08:04→16:48)
[2020-06-22] MEDS: Doxycycline 100 MG CAPSULE PO SCH (08:08)
[2020-06-22] MEDS: Gabapentin 100 MG CAPSULE PO SCH ×2 (08:09→19:53)
[2020-06-22] MEDS: Folic Acid 1 MG TABLET PO SCH (08:09)
[2020-06-22] MEDS: Lactobacillus 1 EACH CAP.SPRINK PO SCH (08:09)
[2020-06-22] MEDS: Loratadine 10 MG TABLET PO SCH (08:09)
[2020-06-22] MEDS: Lactulose Oral Soln 20 GM/30 ML UDC PO SCH ×3 (08:11→21:00)
[2020-06-22] MEDS: Norepinephrine 4 MG/254 ML IV.SOLN IVC SCH (08:51)
[2020-06-22] MEDS ORDERED: *HR* Heparin 10,000 UNIT/10 ML VIAL ONE (14:09)
[2020-06-22 14:44] LABS: Hematocrit 24.7 % (37.5-50.1); Hemoglobin 7.5 g/dL (12.9-16.9)
[2020-06-22] MEDS: Hydrocortisone 10 MG TABLET PO SCH ×2 (14:59→19:53)
[2020-06-22 16:07] LABS: Basophils # 0.1 K/mcL (0.0-0.2); Basophils % 0.5 %; Eosinophils # 0.2 K/mcL (0.0-0.6); Eosinophils % 1.5 %; Hematocrit 25.8 % (37.5-50.1); Hemoglobin 7.7 g/dL (12.9-16.9); Immature Granulocytes % 0.4 % (0-4); Lymphocytes # 0.4 K/mcL (0.6-4.6); Lymphocytes % 3.6 %; Mean Corpuscular HGB Conc 29.8 g/dL (31.6-35.5); Mean Corpuscular Hemoglobin 28.7 pg (28.0-33.3); Mean Corpuscular Volume 96.3 fL (83.0-100.0); Monocytes # 1.3 K/mcL (0.0-1.3); Monocytes % 13.1 %; Neutrophils # 8.3 K/mcL (1.6-8.9); Platelet Count 146 K/mcL (140-400); Red Blood Count 2.68 M/mcL (4.19-5.50); Red Cell Distribution Width 16.5 % (11.5-14.5); Segmented Neutrophils % 80.9 %; White Blood Count 10.2 K/mcL (4.3-11.1)
[2020-06-22 17:51] LABS: Hematocrit 23.4 % (37.5-50.1); Hemoglobin 7.2 g/dL (12.9-16.9)
[2020-06-23 01:16] LABS: Hematocrit 22.7 % (37.5-50.1); Hemoglobin 6.9 g/dL (12.9-16.9)
[2020-06-23 04:19] LABS: Basophils % 0.4 %; Hematocrit 23.8 % (37.5-50.1); Hemoglobin 7.1 g/dL (12.9-16.9); Immature Granulocytes % 0.5 % (0-4); Lymphocytes # 0.3 K/mcL (0.6-4.6); Lymphocytes % 4.1 %; Mean Corpuscular HGB Conc 29.8 g/dL (31.6-35.5); Mean Corpuscular Hemoglobin 28.4 pg (28.0-33.3); Mean Corpuscular Volume 95.2 fL (83.0-100.0); Mean Platelet Volume 10.7 fL (9.4-12.4); Monocytes # 0.4 K/mcL (0.0-1.3); Monocytes % 5.5 %; Neutrophils # 7.2 K/mcL (1.6-8.9); Platelet Count 163 K/mcL (140-400); Red Cell Distribution Width 16.4 % (11.5-14.5); Segmented Neutrophils % 89.5 %; White Blood Count 8.1 K/mcL (4.3-11.1)
[2020-06-23 04:33] LABS: Calcium 9.1 mg/dL (8.6-10.3); Potassium 4.7 mEq/L (3.5-5.1)
[2020-06-23] MEDS: Heparin 25,000UNIT/250ML 1/2NS 25,000 UNIT/250 ML IV.SOLN IVC SCH (05:01)
[2020-06-23] MEDS: Pantoprazole 40 MG VIAL IVP SCH ×2 (05:43→17:51)
[2020-06-23] MEDS: Piperacillin/Tazobactam 3.375 GM in 0.9 % Sodium Chloride Mini Bag 100 ML IVPB SCH (05:44)
[2020-06-23 06:48] LABS: Hematocrit 22.7 % (37.5-50.1)
[2020-06-23] MEDS ORDERED: Heparin 1,000 UNITS/500 mL 500 ML ONE (07:17)
[2020-06-23] MEDS ORDERED: Fluconazole 150 MG TABLET PO ONE (08:41)
[2020-06-23] MEDS: Insulin LISPRO 300 UNITS/3 ML VIAL SUBQ SCH ×2 (09:33→11:32)
[2020-06-23] MEDS: Loratadine 10 MG TABLET PO SCH (10:26)
[2020-06-23] MEDS: Folic Acid 1 MG TABLET PO SCH (10:26)
[2020-06-23] MEDS: Gabapentin 100 MG CAPSULE PO SCH ×2 (10:26→20:44)
[2020-06-23] MEDS: Lactobacillus 1 EACH CAP.SPRINK PO SCH (10:26)
[2020-06-23] MEDS: Lactulose Oral Soln 20 GM/30 ML UDC PO SCH ×3 (10:27→20:45)
[2020-06-23] MEDS: Hydrocortisone 10 MG TABLET PO SCH ×2 (10:27→20:44)
[2020-06-23] MEDS: Tiotropium 10 INH DOSE IH SCH (11:16)
[2020-06-23] MEDS ORDERED: *HR* Heparin 10,000 UNIT/10 ML VIAL IV PRN (12:25)
[2020-06-23] MEDS ORDERED: 0.9 % Sodium Chloride 250 ML IVC PRN (12:25)
[2020-06-23 13:03] LABS: Hematocrit 23.1 % (37.5-50.1); Hemoglobin 6.9 g/dL (12.9-16.9)
[2020-06-23 13:16] LABS: Magnesium 1.8 mg/dL (1.6-2.6); Phosphorous 4.7 mg/dL (2.7-4.5)
[2020-06-23 15:12] LABS: Hepatitis B Surface Antibody < 3.10 mIU/mL
[2020-06-23 15:22] LABS: Hepatitis B Surface Antigen Nonreactive (Nonreactive)
[2020-06-23 18:19] LABS: Hematocrit 22.1 % (37.5-50.1); Hemoglobin 6.8 g/dL (12.9-16.9)
[2020-06-23] MEDS ORDERED: 0.9 % Sodium Chloride 500 ML ONE (18:58)
[2020-06-24 01:36] LABS: Basophils % 0.2 %; Eosinophils % 0.4 %; Hematocrit 23.9 % (37.5-50.1); Hemoglobin 7.4 g/dL (12.9-16.9); Immature Granulocytes % 0.4 % (0-4); Lymphocytes # 0.4 K/mcL (0.6-4.6); Lymphocytes % 4.4 %; Mean Corpuscular Hemoglobin 28.6 pg (28.0-33.3); Mean Corpuscular Volume 92.3 fL (83.0-100.0); Mean Platelet Volume 10.7 fL (9.4-12.4); Monocytes # 0.8 K/mcL (0.0-1.3); Monocytes % 8.8 %; Neutrophils # 7.3 K/mcL (1.6-8.9); Platelet Count 148 K/mcL (140-400); Red Blood Count 2.59 M/mcL (4.19-5.50); Segmented Neutrophils % 85.8 %; White Blood Count 8.5 K/mcL (4.3-11.1)
[2020-06-24 01:57] LABS: Calcium 9.2 mg/dL (8.6-10.3); Potassium 4.2 mEq/L (3.5-5.1)
[2020-06-24] MEDS: Pantoprazole 40 MG VIAL IVP SCH ×2 (05:20→17:19)
[2020-06-24] MEDS: Tiotropium 10 INH DOSE IH SCH (07:37)
[2020-06-24] MEDS ORDERED: *HR* Heparin 10,000 UNIT/10 ML VIAL IV PRN (07:55)
[2020-06-24] MEDS ORDERED: 0.9 % Sodium Chloride 250 ML IVC PRN (07:55)
[2020-06-24] MEDS: Hydrocortisone 10 MG TABLET PO SCH ×2 (08:23→19:52)
[2020-06-24] MEDS: Gabapentin 100 MG CAPSULE PO SCH ×2 (08:23→19:54)
[2020-06-24] MEDS: Loratadine 10 MG TABLET PO SCH (08:23)
[2020-06-24] MEDS: Folic Acid 1 MG TABLET PO SCH (08:24)
[2020-06-24] MEDS: Lactulose Oral Soln 20 GM/30 ML UDC PO SCH ×3 (08:24→19:53)
[2020-06-24] MEDS: Lactobacillus 1 EACH CAP.SPRINK PO SCH (08:24)
[2020-06-24 09:07] LABS: Magnesium 1.7 mg/dL (1.6-2.6); Phosphorous 5.1 mg/dL (2.7-4.5)
[2020-06-24] MEDS: *HR* Heparin 5,000 UNIT/ML VIAL SQ SCH (17:19)
[2020-06-25] MEDS: *HR* Heparin 5,000 UNIT/ML VIAL SQ SCH ×2 (05:38→17:54)
[2020-06-25] MEDS: Pantoprazole 40 MG VIAL IVP SCH ×2 (05:38→17:54)
[2020-06-25 07:03] LABS: Basophils % 0.1 %; Eosinophils % 0.4 %; Hematocrit 25.9 % (37.5-50.1); Hemoglobin 7.9 g/dL (12.9-16.9); Immature Granulocytes % 0.7 % (0-4); Lymphocytes # 0.4 K/mcL (0.6-4.6); Lymphocytes % 4.1 %; Mean Corpuscular HGB Conc 30.5 g/dL (31.6-35.5); Mean Corpuscular Hemoglobin 28.6 pg (28.0-33.3); Mean Corpuscular Volume 93.8 fL (83.0-100.0); Mean Platelet Volume 10.9 fL (9.4-12.4); Monocytes # 0.7 K/mcL (0.0-1.3); Monocytes % 7.3 %; Platelet Count 141 K/mcL (140-400); Red Blood Count 2.76 M/mcL (4.19-5.50); Red Cell Distribution Width 16.2 % (11.5-14.5); Segmented Neutrophils % 87.4 %; White Blood Count 9.1 K/mcL (4.3-11.1)
[2020-06-25 07:21] LABS: Calcium 9.4 mg/dL (8.6-10.3); Magnesium 1.8 mg/dL (1.6-2.6); Phosphorous 4.4 mg/dL (2.7-4.5)
[2020-06-25] MEDS: Tiotropium 10 INH DOSE IH SCH (07:52)
[2020-06-25] MEDS: Folic Acid 1 MG TABLET PO SCH (07:57)
[2020-06-25] MEDS: Loratadine 10 MG TABLET PO SCH (07:57)
[2020-06-25] MEDS: Lactobacillus 1 EACH CAP.SPRINK PO SCH (07:57)
[2020-06-25] MEDS: Hydrocortisone 10 MG TABLET PO SCH ×2 (07:57→21:12)
[2020-06-25] MEDS: Gabapentin 100 MG CAPSULE PO SCH ×2 (07:57→21:12)
[2020-06-25] MEDS: Lactulose Oral Soln 20 GM/30 ML UDC PO SCH ×3 (07:58→21:13)
[2020-06-26 02:43] LABS: Basophils % 0.2 %; Eosinophils # 0.1 K/mcL (0.0-0.6); Eosinophils % 0.5 %; Hematocrit 25.4 % (37.5-50.1); Hemoglobin 7.6 g/dL (12.9-16.9); Immature Granulocytes % 0.5 % (0-4); Immature Platelets 6.2 % (1.1-6.1); Lymphocytes # 0.3 K/mcL (0.6-4.6); Lymphocytes % 2.7 %; Mean Corpuscular HGB Conc 29.9 g/dL (31.6-35.5); Mean Corpuscular Hemoglobin 28.3 pg (28.0-33.3); Mean Corpuscular Volume 94.4 fL (83.0-100.0); Mean Platelet Volume 10.3 fL (9.4-12.4); Monocytes # 0.7 K/mcL (0.0-1.3); Neutrophils # 9.7 K/mcL (1.6-8.9); Platelet Count 146 K/mcL (140-400); Red Blood Count 2.69 M/mcL (4.19-5.50); Red Cell Distribution Width 16.1 % (11.5-14.5); Segmented Neutrophils % 90.1 %; White Blood Count 10.8 K/mcL (4.3-11.1)
[2020-06-26 02:56] LABS: Calcium 9.3 mg/dL (8.6-10.3); Magnesium 1.7 mg/dL (1.6-2.6); Phosphorous 4.3 mg/dL (2.7-4.5); Potassium 4.1 mEq/L (3.5-5.1)
[2020-06-26] MEDS: Pantoprazole 40 MG VIAL IVP SCH ×2 (06:09→17:14)
[2020-06-26] MEDS: *HR* Heparin 5,000 UNIT/ML VIAL SQ SCH ×2 (06:10→17:14)
[2020-06-26] MEDS: Lactulose Oral Soln 20 GM/30 ML UDC PO SCH ×3 (08:15→21:26)
[2020-06-26] MEDS: Tiotropium 10 INH DOSE IH SCH (08:33)
[2020-06-26] MEDS ORDERED: Norepinephrine 4 MG/254 ML IV.SOLN IVC SCH (08:45)
[2020-06-26] MEDS ORDERED: 0.9 % Sodium Chloride 250 ML ONE (10:33)
[2020-06-26] MEDS: Lactobacillus 1 EACH CAP.SPRINK PO SCH (10:38)
[2020-06-26] MEDS: Gabapentin 100 MG CAPSULE PO SCH ×2 (10:38→21:25)
[2020-06-26] MEDS: Hydrocortisone 10 MG TABLET PO SCH ×2 (10:39→21:25)
[2020-06-26] MEDS: Loratadine 10 MG TABLET PO SCH (10:39)
[2020-06-26] MEDS: Folic Acid 1 MG TABLET PO SCH (10:39)
[2020-06-26 15:51] LABS: Hematocrit 26.3 % (37.5-50.1); Hemoglobin 8.2 g/dL (12.9-16.9)
[2020-06-27] MEDS: GuaiFENesin Liq 200 MG/10 ML UDC PO PRN (01:41)
[2020-06-27 03:41] LABS: Hemoglobin 8.2 g/dL (12.9-16.9); Immature Granulocytes % 0.5 % (0-4)
[2020-06-27 03:43] LABS: Basophils % 0.1 %; Eosinophils # 0.1 K/mcL (0.0-0.6); Eosinophils % 1.1 %; Hematocrit 26.6 % (37.5-50.1); Immature Platelets 4.3 % (1.1-6.1); Lymphocytes # 0.3 K/mcL (0.6-4.6); Lymphocytes % 3.7 %; Mean Corpuscular HGB Conc 30.8 g/dL (31.6-35.5); Mean Corpuscular Hemoglobin 29.3 pg (28.0-33.3); Mean Platelet Volume 10.7 fL (9.4-12.4); Monocytes # 0.6 K/mcL (0.0-1.3); Monocytes % 6.7 %; Neutrophils # 7.3 K/mcL (1.6-8.9); Platelet Count 146 K/mcL (140-400); Segmented Neutrophils % 87.9 %; White Blood Count 8.3 K/mcL (4.3-11.1)
[2020-06-27 04:01] LABS: Calcium 9.1 mg/dL (8.6-10.3); Magnesium 1.7 mg/dL (1.6-2.6); Phosphorous 4.4 mg/dL (2.7-4.5); Potassium 4.2 mEq/L (3.5-5.1)
[2020-06-27] MEDS: *HR* Heparin 5,000 UNIT/ML VIAL SQ SCH (05:39)
[2020-06-27] MEDS: Pantoprazole 40 MG VIAL IVP SCH (05:39)
[2020-06-27] MEDS ORDERED: 0.9 % Sodium Chloride 250 ML IVC PRN (07:30)
[2020-06-27] MEDS ORDERED: *HR* Heparin 10,000 UNIT/10 ML VIAL IV PRN (07:30)
[2020-06-27] MEDS ORDERED: 0.9 % Sodium Chloride 1,000 ML PRIME SCH (07:30)
[2020-06-27] MEDS: Tiotropium 10 INH DOSE IH SCH (07:57)
[2020-06-27] MEDS: Hydrocortisone 10 MG TABLET PO SCH (08:25)
[2020-06-27] MEDS: Lactobacillus 1 EACH CAP.SPRINK PO SCH (08:25)
[2020-06-27] MEDS: Gabapentin 100 MG CAPSULE PO SCH (08:26)
[2020-06-27] MEDS: Lactulose Oral Soln 20 GM/30 ML UDC PO SCH ×2 (08:26→15:19)
[2020-06-27] MEDS: Loratadine 10 MG TABLET PO SCH (08:26)
[2020-06-27] MEDS: Folic Acid 1 MG TABLET PO SCH (11:35)
[2020-06-27 16:43] VITALS: BP 118/74
== END 2020-06-27 17:15 | disposition home or self-care (01) | DRG 194 ==
LOC: EMEROOARM 22:04 → 2NNU 22:04 → SUATTDRO 06-20 05:50 → 2NNU 06-20 08:45 → ICNU 06-21 11:40 → 2NNU 06-22 11:09 → 2ANU 06-25 16:07 → 2NNU 06-26 09:23
PROVIDERS: ADMIT Internal Medicine; ATTEND Internal Medicine

== ENCOUNTER 2020-07-05 12:33 | Inpatient (IN) ==
[2020-07-05 13:25] LABS: Basophils % 0.1 %; Eosinophils # 0.1 K/mcL (0.0-0.6); Eosinophils % 0.5 %; Hematocrit 30.4 % (37.5-50.1); Immature Granulocytes % 0.4 % (0-4); Lymphocytes # 0.3 K/mcL (0.6-4.6); Mean Corpuscular HGB Conc 29.6 g/dL (31.6-35.5); Mean Corpuscular Hemoglobin 28.8 pg (28.0-33.3); Mean Corpuscular Volume 97.1 fL (83.0-100.0); Mean Platelet Volume 10.5 fL (9.4-12.4); Monocytes # 0.8 K/mcL (0.0-1.3); Monocytes % 6.7 %; Neutrophils # 10.1 K/mcL (1.6-8.9); Platelet Count 156 K/mcL (140-400); Red Blood Count 3.13 M/mcL (4.19-5.50); Red Cell Distribution Width 17.2 % (11.5-14.5); Segmented Neutrophils % 89.3 %; White Blood Count 11.3 K/mcL (4.3-11.1)
[2020-07-05 13:36] LABS: INR 1.1; Prothrombin Time 12.8 Seconds (9.4-12.1)
[2020-07-05 13:39] LABS: Activated Partial Thrombo Time 44.7 Seconds (26.0-36.0)
[2020-07-05 13:51] LABS: Albumin 4.1 g/dL (3.5-5.7); Albumin/Globulin Ratio 1.2 (1.1-2.2); Bilirubin,Direct 0.1 mg/dL (0.0-0.2); Bilirubin,Indirect 0.4 mg/dL (0.0-1.0); Bilirubin,Total 0.5 mg/dL (0.3-1.0); Calcium 9.5 mg/dL (8.6-10.3); Globulin 3.4 g/dL (2.4-3.5); Potassium 4.5 mEq/L (3.5-5.1); Total Protein 7.5 g/dL (6.4-8.9); Troponin I 0.05 ng/mL (< 0.04)
[2020-07-05] MEDS ORDERED: 0.9 % Sodium Chloride 250 ML IVC PRN (14:21)
[2020-07-05] MEDS ORDERED: *HR* Heparin 10,000 UNIT/10 ML VIAL IV PRN (14:21)
[2020-07-05] MEDS ORDERED: 0.9 % Sodium Chloride 1,000 ML PRIME SCH (14:30)
[2020-07-05] MEDS ORDERED: Naloxone 0.4 MG/ML INJ IVP PRN (14:36)
[2020-07-05 14:45] LABS: Adenovirus Not Detected (Not Detect); Bordetella Pertussis Not Detected (Not Detect); Chlamydophila pneumoniae Not Detected (Not Detect); Coronavirus 229E Not Detected (Not Detect); Coronavirus HKU1 Not Detected (Not Detect); Coronavirus NL63 Not Detected (Not Detect); Coronavirus OC43 Not Detected (Not Detect); Human Metapneumovirus Not Detected (Not Detect); Human Rhinovirus/Enterovirus Not Detected (Not Detect); Influenza A Subtype 2009 H1 Not Detected (Not Detect); Influenza B Not Detected (Not Detect); Mycoplasma pneumoniae Not Detected (Not Detect); Parainfluenza Virus 1 Not Detected (Not Detect); Parainfluenza Virus 2 Not Detected (Not Detect); Parainfluenza Virus 3 Not Detected (Not Detect); Parainfluenza Virus 4 Not Detected (Not Detect); Respiratory Syncytial Virus Not Detected (Not Detect); SARS-CoV-2 Not Detected (Not Detect)
[2020-07-05] MEDS ORDERED: Ipratropium/Albuterol Neb 3 ML IH PRN (14:51)
[2020-07-05] MEDS ORDERED: Albumin 25% 25gram/100mL 25 GM/100 ML IV.SOLN ONE (16:38)
[2020-07-05] MEDS ORDERED: *HR* Heparin 5,000 UNIT/ML VIAL SQ SCH (18:00)
[2020-07-06 03:57] LABS: Basophils % 0.3 %; Eosinophils # 0.1 K/mcL (0.0-0.6); Eosinophils % 1.3 %; Hematocrit 28.2 % (37.5-50.1); Hemoglobin 8.6 g/dL (12.9-16.9); Immature Granulocytes % 0.3 % (0-4); Lymphocytes # 0.4 K/mcL (0.6-4.6); Lymphocytes % 4.6 %; Mean Corpuscular HGB Conc 30.5 g/dL (31.6-35.5); Mean Corpuscular Hemoglobin 29.2 pg (28.0-33.3); Mean Corpuscular Volume 95.6 fL (83.0-100.0); Mean Platelet Volume 10.9 fL (9.4-12.4); Monocytes # 1.1 K/mcL (0.0-1.3); Monocytes % 11.9 %; Platelet Count 123 K/mcL (140-400); Red Blood Count 2.95 M/mcL (4.19-5.50); Red Cell Distribution Width 17.1 % (11.5-14.5); Segmented Neutrophils % 81.6 %; White Blood Count 8.9 K/mcL (4.3-11.1)
[2020-07-06 03:58] LABS: Neutrophils # 7.3 K/mcL (1.6-8.9)
[2020-07-06 04:19] LABS: Calcium 9.6 mg/dL (8.6-10.3); Magnesium 1.8 mg/dL (1.6-2.6); Phosphorous 5.7 mg/dL (2.7-4.5); Potassium 4.7 mEq/L (3.5-5.1)
[2020-07-06 04:22] LABS: Troponin I 0.07 ng/mL (< 0.04)
[2020-07-06] MEDS: Pantoprazole 40 MG VIAL IVP SCH ×2 (05:17→17:16)
[2020-07-06] MEDS ORDERED: *HR* Heparin 5,000 UNIT/ML VIAL CRRT PRN (08:13)
[2020-07-06] MEDS ORDERED: 0.9 % Sodium Chloride 1,000 ML PRIME ONE ×2 (08:13)
[2020-07-06] MEDS ORDERED: *HR* Alteplase (Cathflo) 2 MG VIAL IVP PRN (08:13)
[2020-07-06] MEDS ORDERED: 0.9 % Sodium Chloride 1,000 ML PRIME SCH (08:15)
[2020-07-06] MEDS ORDERED: 0.9 % Sodium Chloride 2,000 ML ONE (08:41)
[2020-07-06] MEDS ORDERED: Hydrocortisone 10 MG TABLET PO SCH (09:00)
[2020-07-06] MEDS: PrismaSATE BGK 4/2.5 5,000 ML CRRT SCH ×2 (11:30)
[2020-07-06] MEDS ORDERED: *HR* Dextrose 50 % in Water (Vial) 50 ML VIAL ONE (14:14)
[2020-07-06] MEDS ORDERED: Fluticasone Propionate Nasal 50 MCG/SPRAY BOTTLE NS PRN (15:11)
[2020-07-06] MEDS ORDERED: Ergocalciferol (VIT D2) 50,000 UNIT (1.25MG) CAP PO SCH (15:15)
[2020-07-06] MEDS ORDERED: Calcium Gluconate 1gm/50mL 1 GM/50 ML BAG IVPB PRN ×2 (15:47)
[2020-07-06] MEDS ORDERED: Albumin 25% 25gram/100mL 25 GM/100 ML IV.SOLN IVPB ONE (16:26)
[2020-07-06] MEDS ORDERED: Furosemide 80 MG in 0.9 % Sodium Chloride 50 ML IV ONE (16:28)
[2020-07-06] MEDS ORDERED: 0.9 % Sodium Chloride 250 ML IVC PRN (17:46)
[2020-07-06] MEDS: Calcium Chloride 4,000 MG in 0.9 % Sodium Chloride 1,000 ML CRRT SCH (19:05)
[2020-07-06] MEDS: Lactulose Oral Soln 20 GM/30 ML UDC PO SCH (19:28)
[2020-07-06] MEDS: Gabapentin 100 MG CAPSULE PO SCH (19:28)
[2020-07-06] MEDS: Hydrocortisone 10 MG TABLET PO SCH (19:28)
[2020-07-06] MEDS: Nystatin POWDER 30 GM BOTTLE TP SCH (20:07)
[2020-07-07] MEDS ORDERED: Albumin 25% 25gram/100mL 25 GM/100 ML IV.SOLN IVPB PRN (00:01)
[2020-07-07] MEDS ORDERED: *HR* Heparin 10,000 UNIT/10 ML VIAL IV PRN (00:01)
[2020-07-07] MEDS: Pantoprazole 40 MG VIAL IVP SCH ×2 (05:11→17:58)
[2020-07-07 06:15] LABS: Basophils % 0.1 %; Eosinophils % 0.3 %; Hemoglobin 8.4 g/dL (12.9-16.9); Mean Corpuscular Volume 95.1 fL (83.0-100.0); Red Cell Distribution Width 17.1 % (11.5-14.5)
[2020-07-07 06:17] LABS: Hematocrit 27.1 % (37.5-50.1); Immature Granulocytes % 0.3 % (0-4); Lymphocytes # 0.3 K/mcL (0.6-4.6); Lymphocytes % 2.4 %; Mean Corpuscular Hemoglobin 29.5 pg (28.0-33.3); Mean Platelet Volume 10.6 fL (9.4-12.4); Monocytes # 0.9 K/mcL (0.0-1.3); Monocytes % 7.3 %; Neutrophils # 10.5 K/mcL (1.6-8.9); Platelet Count 123 K/mcL (140-400); Red Blood Count 2.85 M/mcL (4.19-5.50); Segmented Neutrophils % 89.6 %; White Blood Count 11.7 K/mcL (4.3-11.1)
[2020-07-07 06:31] LABS: Calcium 9.6 mg/dL (8.6-10.3); Potassium 4.9 mEq/L (3.5-5.1)
[2020-07-07] MEDS: PrismaSATE BGK 4/2.5 5,000 ML CRRT SCH ×2 (08:43)
[2020-07-07] MEDS: Hydrocortisone 10 MG TABLET PO SCH ×2 (08:53→20:24)
[2020-07-07] MEDS: Gabapentin 100 MG CAPSULE PO SCH ×2 (08:53→20:24)
[2020-07-07] MEDS: Lactulose Oral Soln 20 GM/30 ML UDC PO SCH ×3 (08:53→20:24)
[2020-07-07] MEDS ORDERED: Multivit/Ca/Min/Fe/FA 1 TAB TABLET PO SCH (09:00)
[2020-07-07] MEDS ORDERED: Loratadine 10 MG TABLET PO SCH (09:00)
[2020-07-07] MEDS ORDERED: Cholecalciferol (D-3) 1,000 UNIT (25MCG) TABLET PO SCH (09:00)
[2020-07-07] MEDS ORDERED: Lactobacillus 1 EACH CAP.SPRINK PO SCH (09:00)
[2020-07-07] MEDS ORDERED: Folic Acid 1 MG TABLET PO SCH (09:00)
[2020-07-07] MEDS: Nystatin POWDER 30 GM BOTTLE TP SCH ×3 (09:26→20:24)
[2020-07-07] MEDS: Calcium Chloride 4,000 MG in 0.9 % Sodium Chloride 1,000 ML CRRT SCH (14:24)
[2020-07-07] MEDS ORDERED: Melatonin 3 MG TABLET PO PRN ×2 (20:34→20:36)
[2020-07-07] MEDS ORDERED: Fluticasone Propionate Nasal 50 MCG/SPRAY BOTTLE NS PRN (22:20)
[2020-07-07] MEDS ORDERED: 0.9 % Sodium Chloride 250 ML IVC PRN ×2 (22:20)
[2020-07-07] MEDS ORDERED: Naloxone 0.4 MG/ML INJ IVP PRN (22:20)
[2020-07-07] MEDS ORDERED: *HR* Alteplase (Cathflo) 2 MG VIAL IVP PRN (22:20)
[2020-07-07] MEDS: Ondansetron 4 MG/2 ML VIAL IVP PRN (22:54)
[2020-07-08 02:04] LABS: Eosinophils % 0.3 %; Hematocrit 27.7 % (37.5-50.1); Hemoglobin 8.6 g/dL (12.9-16.9); Lymphocytes % 2.1 %; Mean Corpuscular Hemoglobin 29.4 pg (28.0-33.3); Mean Corpuscular Volume 94.5 fL (83.0-100.0); Red Blood Count 2.93 M/mcL (4.19-5.50); Red Cell Distribution Width 17.2 % (11.5-14.5)
[2020-07-08 02:07] LABS: Basophils % 0.2 %; Immature Granulocytes % 0.4 % (0-4); Immature Platelets 5.6 % (1.1-6.1); Lymphocytes # 0.2 K/mcL (0.6-4.6); Mean Platelet Volume 10.9 fL (9.4-12.4); Monocytes # 0.9 K/mcL (0.0-1.3); Monocytes % 7.9 %; Platelet Count 115 K/mcL (140-400); Segmented Neutrophils % 89.1 %; White Blood Count 11.6 K/mcL (4.3-11.1)
[2020-07-08 02:13] LABS: Neutrophils # 10.3 K/mcL (1.6-8.9)
[2020-07-08 02:27] LABS: Calcium 9.3 mg/dL (8.6-10.3); Potassium 4.4 mEq/L (3.5-5.1)
[2020-07-08] MEDS: Ipratropium/Albuterol Neb 3 ML IH PRN (05:42)
[2020-07-08] MEDS ORDERED: Pantoprazole 40 MG VIAL IVP SCH (06:00)
[2020-07-08] MEDS ORDERED: 0.9 % Sodium Chloride 250 ML IVC PRN (08:18)
[2020-07-08] MEDS ORDERED: *HR* Heparin 10,000 UNIT/10 ML VIAL IV PRN (08:18)
[2020-07-08] MEDS ORDERED: *HR* LORazepam 2 MG/ML VIAL IVP ONE (08:21)
[2020-07-08] MEDS ORDERED: 0.9 % Sodium Chloride 1,000 ML ONE (08:31)
[2020-07-08 10:05] LABS: VBG HCO3 29 mEq/L (21-27); VBG PCO2 69 mmHg (41-51); VBG PH 7.23 pH Units (7.32-7.42); VBG PO2 85 mmHg (25-50)
[2020-07-08] MEDS: Albumin 25% 25gram/100mL 25 GM/100 ML IV.SOLN IVPB PRN (10:34)
[2020-07-08] MEDS: Lactobacillus 1 EACH CAP.SPRINK PO SCH (12:17)
[2020-07-08] MEDS: Folic Acid 1 MG TABLET PO SCH (12:17)
[2020-07-08] MEDS: Loratadine 10 MG TABLET PO SCH (12:17)
[2020-07-08] MEDS: Cholecalciferol (D-3) 1,000 UNIT (25MCG) TABLET PO SCH (12:18)
[2020-07-08] MEDS: Multivit/Ca/Min/Fe/FA 1 TAB TABLET PO SCH (12:18)
[2020-07-08] MEDS: Hydrocortisone 10 MG TABLET PO SCH ×2 (12:33→21:19)
[2020-07-08] MEDS: Gabapentin 100 MG CAPSULE PO SCH ×2 (12:34→21:19)
[2020-07-08] MEDS: Lactulose Oral Soln 20 GM/30 ML UDC PO SCH ×3 (12:40→21:20)
[2020-07-08] MEDS: Nystatin POWDER 30 GM BOTTLE TP SCH ×3 (12:41→21:21)
[2020-07-08 15:18] LABS: Adenovirus Not Detected (Not Detect); Bordetella Pertussis Not Detected (Not Detect); Chlamydophila pneumoniae Not Detected (Not Detect); Coronavirus 229E Not Detected (Not Detect); Coronavirus HKU1 Not Detected (Not Detect); Coronavirus NL63 Not Detected (Not Detect); Coronavirus OC43 Not Detected (Not Detect); Human Metapneumovirus Not Detected (Not Detect); Human Rhinovirus/Enterovirus Not Detected (Not Detect); Influenza A Subtype 2009 H1 Not Detected (Not Detect); Influenza B Not Detected (Not Detect); Mycoplasma pneumoniae Not Detected (Not Detect); Parainfluenza Virus 1 Not Detected (Not Detect); Parainfluenza Virus 2 Not Detected (Not Detect); Parainfluenza Virus 3 Not Detected (Not Detect); Parainfluenza Virus 4 Not Detected (Not Detect); Respiratory Syncytial Virus Not Detected (Not Detect); SARS-CoV-2 Not Detected (Not Detect)
[2020-07-09 04:04] LABS: Mean Platelet Volume 11.1 fL (9.4-12.4); Red Cell Distribution Width 17.3 % (11.5-14.5)
[2020-07-09 04:06] LABS: Basophils % 0.3 %; Eosinophils # 0.1 K/mcL (0.0-0.6); Eosinophils % 0.8 %; Hemoglobin 8.8 g/dL (12.9-16.9); Immature Granulocytes % 0.4 % (0-4); Immature Platelets 5.8 % (1.1-6.1); Lymphocytes # 0.3 K/mcL (0.6-4.6); Lymphocytes % 2.8 %; Mean Corpuscular HGB Conc 30.3 g/dL (31.6-35.5); Mean Corpuscular Hemoglobin 29.1 pg (28.0-33.3); Monocytes # 0.5 K/mcL (0.0-1.3); Monocytes % 4.7 %; Neutrophils # 10.2 K/mcL (1.6-8.9); Platelet Count 119 K/mcL (140-400); Red Blood Count 3.02 M/mcL (4.19-5.50); White Blood Count 11.2 K/mcL (4.3-11.1)
[2020-07-09 04:24] LABS: Calcium 9.7 mg/dL (8.6-10.3); Potassium 4.6 mEq/L (3.5-5.1)
[2020-07-09] MEDS: Folic Acid 1 MG TABLET PO SCH (10:10)
[2020-07-09] MEDS: Cholecalciferol (D-3) 1,000 UNIT (25MCG) TABLET PO SCH (10:10)
[2020-07-09] MEDS: Multivit/Ca/Min/Fe/FA 1 TAB TABLET PO SCH (10:11)
[2020-07-09] MEDS: Loratadine 10 MG TABLET PO SCH (10:11)
[2020-07-09] MEDS: Hydrocortisone 10 MG TABLET PO SCH ×2 (10:11→21:44)
[2020-07-09] MEDS: Lactobacillus 1 EACH CAP.SPRINK PO SCH (10:11)
[2020-07-09] MEDS: Gabapentin 100 MG CAPSULE PO SCH ×2 (10:12→21:44)
[2020-07-09] MEDS: Nystatin POWDER 30 GM BOTTLE TP SCH ×3 (10:12→21:44)
[2020-07-09 10:48] LABS: VBG HCO3 27 mEq/L (21-27); VBG PCO2 59 mmHg (41-51); VBG PH 7.26 pH Units (7.32-7.42); VBG PO2 206 mmHg (25-50)
[2020-07-09] MEDS: Albumin 25% 25gram/100mL 25 GM/100 ML IV.SOLN IVC SCH (11:26)
[2020-07-09] MEDS: Albumin 25% 25gram/100mL 25 GM/100 ML IV.SOLN IVPB PRN (14:00)
[2020-07-09] MEDS: Lactulose Oral Soln 20 GM/30 ML UDC PO SCH ×2 (15:39→21:45)
[2020-07-09] MEDS ORDERED: Albumin 25% 25gram/100mL 25 GM/100 ML IV.SOLN IVPB ONE (15:55)
[2020-07-09 16:33] LABS: RBC,Peritoneal Fluid 9000 RBC/mcL
[2020-07-09 17:18] LABS: Appearance of Peritoneal Fl HAZY (Clear)
[2020-07-09 17:28] LABS: Basophils,Peritoneal Fluid 0 %; Eosinophils,Peritoneal Fluid 0 %
[2020-07-10 06:21] LABS: Hematocrit 28.9 % (37.5-50.1); Hemoglobin 8.9 g/dL (12.9-16.9); Immature Platelets 5.5 % (1.1-6.1); Mean Corpuscular HGB Conc 30.8 g/dL (31.6-35.5); Mean Corpuscular Hemoglobin 29.5 pg (28.0-33.3); Mean Corpuscular Volume 95.7 fL (83.0-100.0); Mean Platelet Volume 10.9 fL (9.4-12.4); Red Blood Count 3.02 M/mcL (4.19-5.50); Red Cell Distribution Width 17.3 % (11.5-14.5)
[2020-07-10 06:38] LABS: Calcium 9.5 mg/dL (8.6-10.3); Potassium 4.6 mEq/L (3.5-5.1)
[2020-07-10] MEDS: Multivit/Ca/Min/Fe/FA 1 TAB TABLET PO SCH (10:51)
[2020-07-10] MEDS: Cholecalciferol (D-3) 1,000 UNIT (25MCG) TABLET PO SCH (10:51)
[2020-07-10] MEDS: Folic Acid 1 MG TABLET PO SCH (10:51)
[2020-07-10] MEDS: Hydrocortisone 10 MG TABLET PO SCH ×2 (10:51→21:40)
[2020-07-10] MEDS: Lactobacillus 1 EACH CAP.SPRINK PO SCH (10:52)
[2020-07-10] MEDS: Gabapentin 100 MG CAPSULE PO SCH ×2 (10:52→21:40)
[2020-07-10] MEDS: Loratadine 10 MG TABLET PO SCH (10:52)
[2020-07-10] MEDS: Nystatin POWDER 30 GM BOTTLE TP SCH ×3 (10:52→21:41)
[2020-07-10] MEDS: Lactulose Oral Soln 20 GM/30 ML UDC PO SCH ×3 (10:53→21:41)
[2020-07-10] MEDS: Albumin 25% 25gram/100mL 25 GM/100 ML IV.SOLN IVC SCH (15:54)
[2020-07-10] MEDS: Ipratropium/Albuterol Neb 3 ML IH PRN (16:13)
[2020-07-10] MEDS: Budesonide/Formoterol 160/4.5 1 PUFF INH IH SCH ×2 (16:59→20:26)
[2020-07-11 04:06] LABS: Potassium 4.8 mEq/L (3.5-5.1)
[2020-07-11 04:11] LABS: Hematocrit 28.9 % (37.5-50.1); Hemoglobin 8.7 g/dL (12.9-16.9); Immature Platelets 5.6 % (1.1-6.1); Mean Corpuscular HGB Conc 30.1 g/dL (31.6-35.5); Mean Corpuscular Hemoglobin 28.9 pg (28.0-33.3); Mean Platelet Volume 10.9 fL (9.4-12.4); Red Blood Count 3.01 M/mcL (4.19-5.50); Red Cell Distribution Width 17.2 % (11.5-14.5)
[2020-07-11] MEDS: Ondansetron 4 MG/2 ML VIAL IVP PRN (04:19)
[2020-07-11] MEDS ORDERED: Tiotropium 10 INH DOSE IH SCH (07:00)
[2020-07-11] MEDS: Budesonide/Formoterol 160/4.5 1 PUFF INH IH SCH ×2 (07:32→20:01)
[2020-07-11] MEDS ORDERED: *HR* Heparin 10,000 UNIT/10 ML VIAL IV PRN (07:33)
[2020-07-11] MEDS ORDERED: 0.9 % Sodium Chloride 250 ML IVC PRN (07:33)
[2020-07-11] MEDS ORDERED: 0.9 % Sodium Chloride 1,000 ML PRIME SCH (07:45)
[2020-07-11] MEDS: Lactulose Oral Soln 20 GM/30 ML UDC PO SCH ×3 (12:37→21:04)
[2020-07-11] MEDS: Lactobacillus 1 EACH CAP.SPRINK PO SCH (12:39)
[2020-07-11] MEDS: Hydrocortisone 10 MG TABLET PO SCH ×2 (12:39→21:04)
[2020-07-11] MEDS: Nystatin POWDER 30 GM BOTTLE TP SCH ×3 (12:40→21:04)
[2020-07-11] MEDS: Folic Acid 1 MG TABLET PO SCH (12:40)
[2020-07-11] MEDS: Cholecalciferol (D-3) 1,000 UNIT (25MCG) TABLET PO SCH (12:40)
[2020-07-11] MEDS: Gabapentin 100 MG CAPSULE PO SCH ×2 (12:40→21:04)
[2020-07-11] MEDS: Multivit/Ca/Min/Fe/FA 1 TAB TABLET PO SCH (12:40)
[2020-07-11] MEDS: Loratadine 10 MG TABLET PO SCH (12:40)
[2020-07-12 05:42] LABS: Hematocrit 29.5 % (37.5-50.1); Mean Platelet Volume 10.8 fL (9.4-12.4)
[2020-07-12 05:44] LABS: Hemoglobin 8.8 g/dL (12.9-16.9); Mean Corpuscular HGB Conc 29.8 g/dL (31.6-35.5); Mean Corpuscular Volume 97.4 fL (83.0-100.0); Red Blood Count 3.03 M/mcL (4.19-5.50); Red Cell Distribution Width 17.2 % (11.5-14.5); White Blood Count 10.2 K/mcL (4.3-11.1)
[2020-07-12 07:44] VITALS: BP 112/69
[2020-07-12] MEDS: Lactobacillus 1 EACH CAP.SPRINK PO SCH (08:56)
[2020-07-12] MEDS: Hydrocortisone 10 MG TABLET PO SCH (08:56)
[2020-07-12] MEDS: Folic Acid 1 MG TABLET PO SCH (08:57)
[2020-07-12] MEDS: Multivit/Ca/Min/Fe/FA 1 TAB TABLET PO SCH (08:57)
[2020-07-12] MEDS: Cholecalciferol (D-3) 1,000 UNIT (25MCG) TABLET PO SCH (08:57)
[2020-07-12] MEDS: Lactulose Oral Soln 20 GM/30 ML UDC PO SCH (08:58)
[2020-07-12] MEDS: Gabapentin 100 MG CAPSULE PO SCH (08:58)
[2020-07-12] MEDS: Loratadine 10 MG TABLET PO SCH (08:58)
[2020-07-12] MEDS: Nystatin POWDER 30 GM BOTTLE TP SCH (08:58)
[2020-07-13] MEDS ORDERED: Ergocalciferol (VIT D2) 50,000 UNIT (1.25MG) CAP PO SCH (11:00)
== END 2020-07-12 11:23 | disposition home health service (06) | DRG 194 ==
LOC: CDU 12:33 → EMEROOARM 12:33 → CDU 15:43 → ICNU 22:07 → SUATTDRO 07-07 09:56 → 2ANU 07-08 00:14
PROVIDERS: ADMIT Internal Medicine; ATTEND Internal Medicine

== ENCOUNTER 2020-07-31 05:04 | Inpatient (IN) ==
[2020-07-31] MEDS ORDERED: Ipratropium/Albuterol Neb 3 ML ONE ×2 (05:09→11:16)
[2020-07-31] MEDS ORDERED: methylPREDNISolone 125 MG/2 ML VIAL IVP ONE (05:10)
[2020-07-31] MEDS ORDERED: Ipratropium/Albuterol Neb 3 ML IH ONE (05:10)
[2020-07-31 05:48] LABS: Basophils % 0.1 %; Eosinophils % 0.3 %; Hematocrit 34.6 % (37.5-50.1); Hemoglobin 10.2 g/dL (12.9-16.9); Immature Granulocytes % 0.4 % (0-4); Lymphocytes # 0.3 K/mcL (0.6-4.6); Lymphocytes % 2.2 %; Mean Corpuscular HGB Conc 29.5 g/dL (31.6-35.5); Mean Corpuscular Hemoglobin 29.4 pg (28.0-33.3); Mean Corpuscular Volume 99.7 fL (83.0-100.0); Mean Platelet Volume 11.1 fL (9.4-12.4); Monocytes # 0.8 K/mcL (0.0-1.3); Monocytes % 7.1 %; Neutrophils # 10.7 K/mcL (1.6-8.9); Platelet Count 154 K/mcL (140-400); Red Blood Count 3.47 M/mcL (4.19-5.50); Red Cell Distribution Width 18.6 % (11.5-14.5); Segmented Neutrophils % 89.9 %; White Blood Count 11.8 K/mcL (4.3-11.1)
[2020-07-31 06:03] LABS: Calcium 9.5 mg/dL (8.6-10.3); Potassium 4.7 mEq/L (3.5-5.1)
[2020-07-31 06:06] LABS: Troponin I 0.08 ng/mL (< 0.04)
[2020-07-31] MEDS ORDERED: Piperacillin/Tazobactam 3.375 GM in Water for inj. (sterile) 20 ML IVP ONE (06:18)
[2020-07-31] MEDS ORDERED: Vancomycin 1,750 MG/517.5 ML IV.SOLN IVPB ONE (07:00)
[2020-07-31 07:29] LABS: Adenovirus Not Detected (Not Detect); Bordetella Pertussis Not Detected (Not Detect); Chlamydophila pneumoniae Not Detected (Not Detect); Coronavirus 229E Not Detected (Not Detect); Coronavirus HKU1 Not Detected (Not Detect); Coronavirus NL63 Not Detected (Not Detect); Coronavirus OC43 Not Detected (Not Detect); Human Metapneumovirus Not Detected (Not Detect); Human Rhinovirus/Enterovirus Not Detected (Not Detect); Influenza A Subtype 2009 H1 Not Detected (Not Detect); Influenza B Not Detected (Not Detect); Mycoplasma pneumoniae Not Detected (Not Detect); Parainfluenza Virus 1 Not Detected (Not Detect); Parainfluenza Virus 2 Not Detected (Not Detect); Parainfluenza Virus 3 Not Detected (Not Detect); Parainfluenza Virus 4 Not Detected (Not Detect); Respiratory Syncytial Virus Not Detected (Not Detect); SARS-CoV-2 Not Detected (Not Detect)
[2020-07-31] MEDS ORDERED: *HR* Heparin 10,000 UNIT/10 ML VIAL IV PRN (07:42)
[2020-07-31] MEDS ORDERED: 0.9 % Sodium Chloride 250 ML IVC PRN (07:42)
[2020-07-31] MEDS ORDERED: 0.9 % Sodium Chloride 1,000 ML PRIME SCH (07:45)
[2020-07-31] MEDS ORDERED: Melatonin 3 MG TABLET PO PRN (07:57)
[2020-07-31] MEDS ORDERED: Naloxone 0.4 MG/ML INJ IVP PRN (07:57)
[2020-07-31 08:51] LABS: Hepatitis B Surface Antibody 4.46 mIU/mL
[2020-07-31 09:02] LABS: Hepatitis B Surface Antigen Nonreactive (Nonreactive)
[2020-07-31] MEDS ORDERED: Ipratropium/Albuterol Neb 3 ML IH PRN (09:34)
[2020-07-31] MEDS ORDERED: Nitroglycerin 0.4 MG TAB.SUBL SL PRN (09:38)
[2020-07-31 11:06] LABS: INR 1.1; Prothrombin Time 12.4 Seconds (9.4-12.1)
[2020-07-31] MEDS: Chlorhexidine Rinse 15 ML MOUTHWASH MM SCH ×2 (11:10→20:33)
[2020-07-31 11:24] LABS: Magnesium 1.8 mg/dL (1.6-2.6); Phosphorous 3.9 mg/dL (2.7-4.5)
[2020-07-31 11:25] LABS: Albumin 3.8 g/dL (3.5-5.7); Albumin/Globulin Ratio 1.3 (1.1-2.2); Bilirubin,Direct 0.2 mg/dL (0.0-0.2); Bilirubin,Indirect 0.4 mg/dL (0.0-1.0); Bilirubin,Total 0.6 mg/dL (0.3-1.0); Total Protein 6.8 g/dL (6.4-8.9)
[2020-07-31 11:44] LABS: Thyroid Stimulating Hormone 4.316 mcIU/mL (0.340-5.600)
[2020-07-31 12:06] LABS: Estimated Average Glucose 105 mg/dl; Hemoglobin A1C 5.3 %
[2020-07-31] MEDS: Budesonide/Formoterol 160/4.5 1 PUFF INH IH SCH ×2 (13:34→19:56)
[2020-07-31] MEDS: Ipratropium/Albuterol Neb 3 ML IH SCH ×4 (13:34→23:25)
[2020-07-31] MEDS: MethylPREDNISolone 40 MG/ML VIAL IVP SCH (15:02)
[2020-07-31] MEDS: Lactulose Oral Soln 20 GM/30 ML UDC PO SCH ×2 (15:02→20:33)
[2020-07-31] MEDS ORDERED: Fluticasone Propionate Nasal 50 MCG/SPRAY BOTTLE NS PRN (16:34)
[2020-07-31] MEDS: *HR* Heparin 5,000 UNIT/ML VIAL SQ SCH (17:18)
[2020-07-31] MEDS: Lactobacillus 1 EACH CAP.SPRINK PO SCH (20:33)
[2020-07-31] MEDS: Gabapentin 100 MG CAPSULE PO SCH (20:33)
[2020-07-31] MEDS ORDERED: LACTULOSE 10 GM/15 ML PO SCH (21:00)
[2020-07-31] MEDS ORDERED: HYDROCORTISONE 20 MG PO SCH (21:00)
[2020-07-31] MEDS ORDERED: Saline Nasal Spray 44 ML BOTTLE NS PRN (22:16)
[2020-08-01] MEDS: MethylPREDNISolone 40 MG/ML VIAL IVP SCH ×3 (00:44→16:23)
[2020-08-01 03:39] LABS: Hematocrit 29.6 % (37.5-50.1); Hemoglobin 9.2 g/dL (12.9-16.9); Immature Granulocytes % 0.4 % (0-4); Immature Platelets 6.1 % (1.1-6.1); Lymphocytes # 0.1 K/mcL (0.6-4.6); Lymphocytes % 2.3 %; Mean Corpuscular HGB Conc 31.1 g/dL (31.6-35.5); Mean Corpuscular Hemoglobin 29.9 pg (28.0-33.3); Mean Corpuscular Volume 96.1 fL (83.0-100.0); Mean Platelet Volume 11.4 fL (9.4-12.4); Monocytes # 0.2 K/mcL (0.0-1.3); Monocytes % 4.3 %; Neutrophils # 4.8 K/mcL (1.6-8.9); Platelet Count 126 K/mcL (140-400); Red Blood Count 3.08 M/mcL (4.19-5.50); Red Cell Distribution Width 18.6 % (11.5-14.5); White Blood Count 5.2 K/mcL (4.3-11.1)
[2020-08-01] MEDS: Ipratropium/Albuterol Neb 3 ML IH SCH ×6 (03:47→23:22)
[2020-08-01 03:51] LABS: Albumin 3.6 g/dL (3.5-5.7); Albumin/Globulin Ratio 1.2 (1.1-2.2); Bilirubin,Total 0.7 mg/dL (0.3-1.0); Calcium 9.1 mg/dL (8.6-10.3); Phosphorous 3.4 mg/dL (2.7-4.5); Potassium 4.1 mEq/L (3.5-5.1); Total Protein 6.6 g/dL (6.4-8.9)
[2020-08-01 03:56] LABS: Anisocytosis 1+ (Not Present); Platelet Estimate Slight Decrease (Normal)
[2020-08-01] MEDS: *HR* Heparin 5,000 UNIT/ML VIAL SQ SCH ×2 (05:21→16:23)
[2020-08-01] MEDS ORDERED: 0.9 % Sodium Chloride 250 ML IVC PRN (07:23)
[2020-08-01] MEDS ORDERED: *HR* Heparin 10,000 UNIT/10 ML VIAL IV PRN (07:23)
[2020-08-01] MEDS ORDERED: 0.9 % Sodium Chloride 1,000 ML PRIME SCH (07:30)
[2020-08-01] MEDS: Budesonide/Formoterol 160/4.5 1 PUFF INH IH SCH ×2 (08:17→19:38)
[2020-08-01] MEDS: Chlorhexidine Rinse 15 ML MOUTHWASH MM SCH ×3 (09:29→20:55)
[2020-08-01] MEDS: Lactulose Oral Soln 20 GM/30 ML UDC PO SCH ×4 (09:30→20:55)
[2020-08-01] MEDS: cefTRIAXone 1,000 MG in 0.9 % Sodium Chloride Mini Bag 100 ML IVPB SCH (09:37)
[2020-08-01] MEDS: Folic Acid 1 MG TABLET PO SCH (14:05)
[2020-08-01] MEDS: Cholecalciferol (D-3) 1,000 UNIT (25MCG) TABLET PO SCH (14:05)
[2020-08-01] MEDS: Thiamine (B-1) 100 MG TABLET PO SCH (14:05)
[2020-08-01] MEDS: Renal Vitamin 1 CAP CAPSULE PO SCH (14:06)
[2020-08-01] MEDS: Azithromycin 250 MG TABLET PO SCH (14:07)
[2020-08-01] MEDS: Lactobacillus 1 EACH CAP.SPRINK PO SCH ×2 (14:08→20:55)
[2020-08-01] MEDS: Gabapentin 100 MG CAPSULE PO SCH ×2 (14:08→20:55)
[2020-08-01] MEDS: Albumin 25% 25gram/100mL 25 GM/100 ML IV.SOLN IVPB SCH ×3 (16:22→20:55)
[2020-08-02] MEDS: MethylPREDNISolone 40 MG/ML VIAL IVP SCH ×4 (00:04→23:54)
[2020-08-02 02:07] LABS: Hemoglobin 9.6 g/dL (12.9-16.9); Immature Granulocytes % 0.2 % (0-4); Red Cell Distribution Width 18.7 % (11.5-14.5)
[2020-08-02 02:08] LABS: Eosinophils % 0.2 %; Hematocrit 31.2 % (37.5-50.1); Immature Platelets 7.1 % (1.1-6.1); Lymphocytes # 0.1 K/mcL (0.6-4.6); Lymphocytes % 2.7 %; Mean Corpuscular HGB Conc 30.8 g/dL (31.6-35.5); Mean Corpuscular Hemoglobin 29.4 pg (28.0-33.3); Mean Corpuscular Volume 95.7 fL (83.0-100.0); Mean Platelet Volume 10.2 fL (9.4-12.4); Monocytes # 0.3 K/mcL (0.0-1.3); Monocytes % 6.6 %; Red Blood Count 3.26 M/mcL (4.19-5.50); Segmented Neutrophils % 90.3 %; White Blood Count 4.4 K/mcL (4.3-11.1)
[2020-08-02 02:27] LABS: Calcium 9.7 mg/dL (8.6-10.3); Magnesium 1.9 mg/dL (1.6-2.6); Potassium 3.6 mEq/L (3.5-5.1)
[2020-08-02 02:37] LABS: Platelet Count 98 K/mcL (140-400)
[2020-08-02 02:38] LABS: Anisocytosis 1+ (Not Present); Platelet Estimate Decreased (Normal)
[2020-08-02] MEDS: Ipratropium/Albuterol Neb 3 ML IH SCH ×6 (03:57→23:46)
[2020-08-02] MEDS: *HR* Heparin 5,000 UNIT/ML VIAL SQ SCH ×2 (06:10→17:43)
[2020-08-02] MEDS: Budesonide/Formoterol 160/4.5 1 PUFF INH IH SCH ×2 (07:31→19:46)
[2020-08-02] MEDS: Chlorhexidine Rinse 15 ML MOUTHWASH MM SCH ×2 (09:18→20:22)
[2020-08-02] MEDS: Lactulose Oral Soln 20 GM/30 ML UDC PO SCH ×8 (09:19→23:52)
[2020-08-02] MEDS: cefTRIAXone 1,000 MG in 0.9 % Sodium Chloride Mini Bag 100 ML IVPB SCH (09:19)
[2020-08-02] MEDS: Renal Vitamin 1 CAP CAPSULE PO SCH (09:21)
[2020-08-02] MEDS: Folic Acid 1 MG TABLET PO SCH (09:21)
[2020-08-02] MEDS: Thiamine (B-1) 100 MG TABLET PO SCH (09:21)
[2020-08-02] MEDS: Gabapentin 100 MG CAPSULE PO SCH ×2 (09:21→20:22)
[2020-08-02] MEDS: Cholecalciferol (D-3) 1,000 UNIT (25MCG) TABLET PO SCH (09:22)
[2020-08-02] MEDS: Lactobacillus 1 EACH CAP.SPRINK PO SCH ×2 (09:22→20:22)
[2020-08-02] MEDS: Azithromycin 250 MG TABLET PO SCH (09:22)
[2020-08-02] MEDS: Acetaminophen 325 MG TABLET PO PRN (11:10)
[2020-08-03] MEDS: Lactulose Oral Soln 20 GM/30 ML UDC PO SCH ×5 (01:45→20:13)
[2020-08-03] MEDS: Ipratropium/Albuterol Neb 3 ML IH SCH ×6 (03:08→23:30)
[2020-08-03 04:35] LABS: Hematocrit 29.2 % (37.5-50.1); Hemoglobin 9.2 g/dL (12.9-16.9); Immature Platelets 7.5 % (1.1-6.1); Mean Corpuscular HGB Conc 31.5 g/dL (31.6-35.5); Mean Corpuscular Hemoglobin 29.7 pg (28.0-33.3); Mean Corpuscular Volume 94.2 fL (83.0-100.0); Mean Platelet Volume 11.4 fL (9.4-12.4); Red Blood Count 3.1 M/mcL (4.19-5.50); Red Cell Distribution Width 18.1 % (11.5-14.5); White Blood Count 6.6 K/mcL (4.3-11.1)
[2020-08-03 04:52] LABS: Calcium 9.4 mg/dL (8.6-10.3); Potassium 4.1 mEq/L (3.5-5.1)
[2020-08-03] MEDS: *HR* Heparin 5,000 UNIT/ML VIAL SQ SCH ×2 (05:12→18:38)
[2020-08-03] MEDS ORDERED: 0.9 % Sodium Chloride 250 ML IVC PRN (07:16)
[2020-08-03] MEDS ORDERED: *HR* Heparin 10,000 UNIT/10 ML VIAL IV PRN (07:16)
[2020-08-03] MEDS ORDERED: 0.9 % Sodium Chloride 1,000 ML PRIME SCH (07:30)
[2020-08-03] MEDS: Gabapentin 100 MG CAPSULE PO SCH ×2 (09:50→20:13)
[2020-08-03] MEDS: Azithromycin 250 MG TABLET PO SCH (09:52)
[2020-08-03] MEDS: Cholecalciferol (D-3) 1,000 UNIT (25MCG) TABLET PO SCH (09:53)
[2020-08-03] MEDS: Thiamine (B-1) 100 MG TABLET PO SCH (09:53)
[2020-08-03] MEDS: Renal Vitamin 1 CAP CAPSULE PO SCH (09:53)
[2020-08-03] MEDS: Folic Acid 1 MG TABLET PO SCH (09:54)
[2020-08-03] MEDS: Lactobacillus 1 EACH CAP.SPRINK PO SCH ×2 (09:54→20:12)
[2020-08-03] MEDS: MethylPREDNISolone 40 MG/ML VIAL IVP SCH ×3 (09:55→23:27)
[2020-08-03] MEDS: Chlorhexidine Rinse 15 ML MOUTHWASH MM SCH ×2 (10:53→20:13)
[2020-08-03] MEDS: cefTRIAXone 1,000 MG in 0.9 % Sodium Chloride Mini Bag 100 ML IVPB SCH (10:53)
[2020-08-03] MEDS: Budesonide/Formoterol 160/4.5 1 PUFF INH IH SCH ×2 (11:15→19:45)
[2020-08-04 03:08] LABS: White Blood Count 7.5 K/mcL (4.3-11.1)
[2020-08-04 03:09] LABS: Hematocrit 30.1 % (37.5-50.1); Immature Platelets 7.4 % (1.1-6.1); Mean Corpuscular HGB Conc 29.9 g/dL (31.6-35.5); Mean Corpuscular Volume 97.1 fL (83.0-100.0); Mean Platelet Volume 10.7 fL (9.4-12.4); Red Blood Count 3.1 M/mcL (4.19-5.50); Red Cell Distribution Width 17.9 % (11.5-14.5)
[2020-08-04] MEDS: Ipratropium/Albuterol Neb 3 ML IH SCH ×6 (03:59→23:02)
[2020-08-04] MEDS: *HR* Heparin 5,000 UNIT/ML VIAL SQ SCH ×2 (05:12→16:35)
[2020-08-04] MEDS: Budesonide/Formoterol 160/4.5 1 PUFF INH IH SCH ×2 (07:48→19:46)
[2020-08-04] MEDS ORDERED: Lactulose 200 GM, Sodium Chloride IRRigation 700 ML RC ONE (08:57)
[2020-08-04] MEDS: MethylPREDNISolone 40 MG/ML VIAL IVP SCH (09:00)
[2020-08-04] MEDS: cefTRIAXone 1,000 MG in 0.9 % Sodium Chloride Mini Bag 100 ML IVPB SCH (09:00)
[2020-08-04] MEDS: Gabapentin 100 MG CAPSULE PO SCH ×2 (09:01→22:19)
[2020-08-04] MEDS: Cholecalciferol (D-3) 1,000 UNIT (25MCG) TABLET PO SCH (09:01)
[2020-08-04] MEDS: Azithromycin 250 MG TABLET PO SCH (09:01)
[2020-08-04] MEDS: Lactobacillus 1 EACH CAP.SPRINK PO SCH ×2 (09:01→22:19)
[2020-08-04] MEDS: Renal Vitamin 1 CAP CAPSULE PO SCH (09:02)
[2020-08-04] MEDS: Thiamine (B-1) 100 MG TABLET PO SCH (09:02)
[2020-08-04] MEDS: Chlorhexidine Rinse 15 ML MOUTHWASH MM SCH ×2 (09:02→22:19)
[2020-08-04] MEDS: Lactulose Oral Soln 20 GM/30 ML UDC PO SCH ×3 (09:02→22:20)
[2020-08-04] MEDS: Folic Acid 1 MG TABLET PO SCH (09:02)
[2020-08-05 01:39] LABS: Calcium 9.1 mg/dL (8.6-10.3); Potassium 4.4 mEq/L (3.5-5.1)
[2020-08-05] MEDS: Ipratropium/Albuterol Neb 3 ML IH SCH ×6 (03:38→23:15)
[2020-08-05] MEDS: *HR* Heparin 5,000 UNIT/ML VIAL SQ SCH ×2 (05:10→16:47)
[2020-08-05] MEDS ORDERED: 0.9 % Sodium Chloride 250 ML IVC PRN (08:36)
[2020-08-05] MEDS ORDERED: *HR* Heparin 10,000 UNIT/10 ML VIAL IV PRN (08:36)
[2020-08-05] MEDS: Lactobacillus 1 EACH CAP.SPRINK PO SCH ×2 (09:00→20:49)
[2020-08-05] MEDS: Renal Vitamin 1 CAP CAPSULE PO SCH (09:00)
[2020-08-05] MEDS: Folic Acid 1 MG TABLET PO SCH (09:00)
[2020-08-05] MEDS: Gabapentin 100 MG CAPSULE PO SCH ×2 (09:00→20:50)
[2020-08-05] MEDS: Thiamine (B-1) 100 MG TABLET PO SCH (09:00)
[2020-08-05] MEDS: predniSONE 20 MG TABLET PO SCH (09:00)
[2020-08-05] MEDS: Cholecalciferol (D-3) 1,000 UNIT (25MCG) TABLET PO SCH (09:01)
[2020-08-05] MEDS: Lactulose Oral Soln 20 GM/30 ML UDC PO SCH ×3 (09:02→20:50)
[2020-08-05] MEDS: Chlorhexidine Rinse 15 ML MOUTHWASH MM SCH ×2 (09:02→20:50)
[2020-08-05] MEDS: Budesonide/Formoterol 160/4.5 1 PUFF INH IH SCH ×2 (09:57→20:29)
[2020-08-06 01:57] LABS: Basophils % 0.1 %
[2020-08-06 01:59] LABS: Eosinophils % 0.1 %; Hematocrit 33.7 % (37.5-50.1); Immature Granulocytes % 0.5 % (0-4); Immature Platelets 8.1 % (1.1-6.1); Lymphocytes # 0.2 K/mcL (0.6-4.6); Lymphocytes % 1.6 %; Mean Corpuscular HGB Conc 29.7 g/dL (31.6-35.5); Mean Corpuscular Hemoglobin 29.4 pg (28.0-33.3); Mean Corpuscular Volume 99.1 fL (83.0-100.0); Mean Platelet Volume 11.4 fL (9.4-12.4); Monocytes # 0.6 K/mcL (0.0-1.3); Monocytes % 5.3 %; Platelet Count 101 K/mcL (140-400); Red Cell Distribution Width 18.3 % (11.5-14.5); Segmented Neutrophils % 92.4 %; White Blood Count 12.1 K/mcL (4.3-11.1)
[2020-08-06 03:01] LABS: Neutrophils # 11.2 K/mcL (1.6-8.9)
[2020-08-06 03:15] LABS: Calcium 9.4 mg/dL (8.6-10.3); Potassium 4.1 mEq/L (3.5-5.1)
[2020-08-06] MEDS: Ipratropium/Albuterol Neb 3 ML IH SCH ×5 (04:21→20:33)
[2020-08-06] MEDS: *HR* Heparin 5,000 UNIT/ML VIAL SQ SCH ×2 (05:27→16:10)
[2020-08-06] MEDS: Budesonide/Formoterol 160/4.5 1 PUFF INH IH SCH ×2 (07:48→20:33)
[2020-08-06] MEDS: Lactobacillus 1 EACH CAP.SPRINK PO SCH ×2 (07:55→21:39)
[2020-08-06] MEDS: Folic Acid 1 MG TABLET PO SCH (07:55)
[2020-08-06] MEDS: Cholecalciferol (D-3) 1,000 UNIT (25MCG) TABLET PO SCH (07:55)
[2020-08-06] MEDS: Gabapentin 100 MG CAPSULE PO SCH ×2 (07:56→21:39)
[2020-08-06] MEDS: Renal Vitamin 1 CAP CAPSULE PO SCH (07:56)
[2020-08-06] MEDS: Nystatin POWDER 30 GM BOTTLE TP SCH ×2 (07:56→22:54)
[2020-08-06] MEDS: Chlorhexidine Rinse 15 ML MOUTHWASH MM SCH ×2 (07:56→21:39)
[2020-08-06] MEDS: Thiamine (B-1) 100 MG TABLET PO SCH (07:56)
[2020-08-06] MEDS: predniSONE 20 MG TABLET PO SCH (07:56)
[2020-08-06] MEDS: Lactulose Oral Soln 20 GM/30 ML UDC PO SCH ×3 (07:57→21:39)
[2020-08-06] MEDS: Ondansetron 4 MG/2 ML VIAL IVP PRN (21:38)
[2020-08-07] MEDS: Ipratropium/Albuterol Neb 3 ML IH SCH ×7 (00:24→23:40)
[2020-08-07] MEDS: Acetaminophen 325 MG TABLET PO PRN (04:12)
[2020-08-07] MEDS: *HR* Heparin 5,000 UNIT/ML VIAL SQ SCH ×2 (04:13→16:27)
[2020-08-07 05:46] LABS: Eosinophils % 0.3 %; Hematocrit 30.5 % (37.5-50.1); Hemoglobin 9.1 g/dL (12.9-16.9); Immature Granulocytes % 0.5 % (0-4); Immature Platelets 7.7 % (1.1-6.1); Lymphocytes # 0.3 K/mcL (0.6-4.6); Lymphocytes % 1.8 %; Mean Corpuscular HGB Conc 29.8 g/dL (31.6-35.5); Mean Corpuscular Hemoglobin 29.3 pg (28.0-33.3); Mean Corpuscular Volume 98.1 fL (83.0-100.0); Mean Platelet Volume 10.5 fL (9.4-12.4); Monocytes # 0.8 K/mcL (0.0-1.3); Monocytes % 5.7 %; Neutrophils # 13.5 K/mcL (1.6-8.9); Platelet Count 106 K/mcL (140-400); Red Blood Count 3.11 M/mcL (4.19-5.50); Red Cell Distribution Width 17.8 % (11.5-14.5); Segmented Neutrophils % 91.7 %; White Blood Count 14.7 K/mcL (4.3-11.1)
[2020-08-07 06:09] LABS: Potassium 4.8 mEq/L (3.5-5.1)
[2020-08-07] MEDS: Budesonide/Formoterol 160/4.5 1 PUFF INH IH SCH ×2 (07:32→19:48)
[2020-08-07] MEDS: Chlorhexidine Rinse 15 ML MOUTHWASH MM SCH ×2 (09:06→21:20)
[2020-08-07] MEDS: Folic Acid 1 MG TABLET PO SCH (09:06)
[2020-08-07] MEDS: Lactulose Oral Soln 20 GM/30 ML UDC PO SCH ×3 (09:06→21:21)
[2020-08-07] MEDS: Lactobacillus 1 EACH CAP.SPRINK PO SCH ×2 (09:06→21:21)
[2020-08-07] MEDS: Nystatin POWDER 30 GM BOTTLE TP SCH (09:07)
[2020-08-07] MEDS: Renal Vitamin 1 CAP CAPSULE PO SCH (09:07)
[2020-08-07] MEDS: Gabapentin 100 MG CAPSULE PO SCH ×3 (09:07→21:21)
[2020-08-07] MEDS: Thiamine (B-1) 100 MG TABLET PO SCH (09:07)
[2020-08-07] MEDS: Cholecalciferol (D-3) 1,000 UNIT (25MCG) TABLET PO SCH (09:07)
[2020-08-07 11:23] LABS: ABG Base Excess 4 mEq/L (-2 to 3); ABG HCO3 33 mEq/L (21-27); ABG Oxygen Saturation 93 % (95-98); ABG PCO2 74 mmHg (35-45); ABG PH 7.26 pH Units (7.32-7.45); ABG PO2 80 mmHg (85-104); ABG TCO2 35 mEq/L (20-26)
[2020-08-07] MEDS: MethylPREDNISolone 40 MG/ML VIAL IVP SCH ×2 (12:23→21:16)
[2020-08-07] MEDS: Piperacillin/Tazobactam 3.375 GM in 0.9 % Sodium Chloride Mini Bag 100 ML IVPB SCH (12:23)
[2020-08-07 13:17] LABS: ABG Base Excess 5 mEq/L (-2 to 3); ABG HCO3 34 mEq/L (21-27); ABG Oxygen Saturation 95 % (95-98); ABG PCO2 69 mmHg (35-45); ABG PO2 86 mmHg (85-104); ABG TCO2 36 mEq/L (20-26)
[2020-08-07] MEDS: Metoprolol XL (24 HR) Succ 25 MG TAB.ER.24H PO SCH (16:33)
[2020-08-08] MEDS: Nystatin POWDER 30 GM BOTTLE TP SCH ×3 (00:03→21:10)
[2020-08-08] MEDS: Piperacillin/Tazobactam 3.375 GM in 0.9 % Sodium Chloride Mini Bag 100 ML IVPB SCH ×2 (00:04→13:31)
[2020-08-08 02:11] LABS: Calcium 9.3 mg/dL (8.6-10.3); Potassium 5.6 mEq/L (3.5-5.1)
[2020-08-08] MEDS: *HR* Heparin 5,000 UNIT/ML VIAL SQ SCH ×2 (04:07→18:46)
[2020-08-08] MEDS: MethylPREDNISolone 40 MG/ML VIAL IVP SCH ×3 (04:07→20:59)
[2020-08-08] MEDS: Ipratropium/Albuterol Neb 3 ML IH SCH ×6 (04:08→23:20)
[2020-08-08] MEDS ORDERED: 0.9 % Sodium Chloride 250 ML IVC PRN (07:29)
[2020-08-08] MEDS ORDERED: *HR* Heparin 10,000 UNIT/10 ML VIAL IV PRN (07:29)
[2020-08-08] MEDS ORDERED: 0.9 % Sodium Chloride 1,000 ML PRIME SCH (07:30)
[2020-08-08] MEDS: Folic Acid 1 MG TABLET PO SCH (07:31)
[2020-08-08] MEDS: Gabapentin 100 MG CAPSULE PO SCH ×2 (07:31→21:10)
[2020-08-08] MEDS: Lactobacillus 1 EACH CAP.SPRINK PO SCH ×2 (07:31→21:10)
[2020-08-08] MEDS: Metoprolol XL (24 HR) Succ 25 MG TAB.ER.24H PO SCH (07:31)
[2020-08-08] MEDS: Cholecalciferol (D-3) 1,000 UNIT (25MCG) TABLET PO SCH (07:31)
[2020-08-08] MEDS: Chlorhexidine Rinse 15 ML MOUTHWASH MM SCH ×2 (07:31→20:59)
[2020-08-08] MEDS: Renal Vitamin 1 CAP CAPSULE PO SCH (07:31)
[2020-08-08] MEDS: Lactulose Oral Soln 20 GM/30 ML UDC PO SCH ×3 (07:31→21:10)
[2020-08-08] MEDS: Thiamine (B-1) 100 MG TABLET PO SCH (07:31)
[2020-08-08] MEDS: Budesonide/Formoterol 160/4.5 1 PUFF INH IH SCH ×2 (08:07→20:28)
[2020-08-08] MEDS ORDERED: Insulin Human Regular 10 UNIT in 0.9 % Sodium Chloride 10 ML IV ONE (08:15)
[2020-08-08] MEDS ORDERED: *HR* Dextrose 50 % in Water (Vial) 50 ML VIAL IVP ONE (08:16)
[2020-08-08] MEDS ORDERED: Lactulose 200 GM, Sodium Chloride IRRigation 700 ML RC ONE (10:55)
[2020-08-09] MEDS: Piperacillin/Tazobactam 3.375 GM in 0.9 % Sodium Chloride Mini Bag 100 ML IVPB SCH ×3 (01:00→23:56)
[2020-08-09] MEDS: Ipratropium/Albuterol Neb 3 ML IH SCH ×6 (03:23→23:34)
[2020-08-09] MEDS: MethylPREDNISolone 40 MG/ML VIAL IVP SCH ×3 (05:42→20:44)
[2020-08-09] MEDS: *HR* Heparin 5,000 UNIT/ML VIAL SQ SCH ×2 (05:42→18:05)
[2020-08-09] MEDS: Ondansetron 4 MG/2 ML VIAL IVP PRN (07:00)
[2020-08-09] MEDS: Chlorhexidine Rinse 15 ML MOUTHWASH MM SCH ×2 (07:46→20:43)
[2020-08-09] MEDS: Budesonide/Formoterol 160/4.5 1 PUFF INH IH SCH ×2 (07:50→20:19)
[2020-08-09] MEDS: Lactulose Oral Soln 20 GM/30 ML UDC PO SCH ×3 (10:51→20:44)
[2020-08-09] MEDS: Folic Acid 1 MG TABLET PO SCH (10:51)
[2020-08-09] MEDS: Gabapentin 100 MG CAPSULE PO SCH ×2 (10:51→20:43)
[2020-08-09] MEDS: Nystatin POWDER 30 GM BOTTLE TP SCH ×2 (10:51→21:01)
[2020-08-09] MEDS: Renal Vitamin 1 CAP CAPSULE PO SCH (10:51)
[2020-08-09] MEDS: Lactobacillus 1 EACH CAP.SPRINK PO SCH ×2 (10:51→20:43)
[2020-08-09] MEDS: Cholecalciferol (D-3) 1,000 UNIT (25MCG) TABLET PO SCH (10:52)
[2020-08-09] MEDS: Metoprolol XL (24 HR) Succ 25 MG TAB.ER.24H PO SCH (10:52)
[2020-08-09] MEDS: Thiamine (B-1) 100 MG TABLET PO SCH (10:52)
[2020-08-09] MEDS ORDERED: E-Z-HD (BARIUM SULF) SUSPENSION PO ONE (14:32)
[2020-08-09] MEDS ORDERED: E-Z-PAQUE (BARIUM SULF) SUSP 1 BOTTLE PO ONE (14:32)
[2020-08-09] MEDS: Acetaminophen 325 MG TABLET PO PRN (15:32)
[2020-08-09] MEDS ORDERED: Albumin 25% 25gram/100mL 25 GM/100 ML IV.SOLN IVPB ONE (20:28)
[2020-08-10] MEDS: Ipratropium/Albuterol Neb 3 ML IH SCH ×6 (04:02→23:39)
[2020-08-10 05:55] LABS: VBG HCO3 31 mEq/L (21-27); VBG PCO2 61 mmHg (41-51); VBG PH 7.32 pH Units (7.32-7.42); VBG PO2 41 mmHg (25-50)
[2020-08-10 06:18] LABS: Calcium 8.9 mg/dL (8.6-10.3); Magnesium 1.8 mg/dL (1.6-2.6); Phosphorous 3.9 mg/dL (2.7-4.5); Potassium 4.3 mEq/L (3.5-5.1)
[2020-08-10] MEDS: *HR* Heparin 5,000 UNIT/ML VIAL SQ SCH ×2 (06:25→17:37)
[2020-08-10] MEDS: MethylPREDNISolone 40 MG/ML VIAL IVP SCH (06:25)
[2020-08-10] MEDS: Budesonide/Formoterol 160/4.5 1 PUFF INH IH SCH ×2 (07:51→20:01)
[2020-08-10] MEDS: Thiamine (B-1) 100 MG TABLET PO SCH (07:54)
[2020-08-10] MEDS: Renal Vitamin 1 CAP CAPSULE PO SCH (07:54)
[2020-08-10] MEDS: Lactobacillus 1 EACH CAP.SPRINK PO SCH ×2 (07:54→20:32)
[2020-08-10] MEDS: Cholecalciferol (D-3) 1,000 UNIT (25MCG) TABLET PO SCH (07:54)
[2020-08-10] MEDS: Nystatin POWDER 30 GM BOTTLE TP SCH ×2 (07:55→20:34)
[2020-08-10] MEDS: Folic Acid 1 MG TABLET PO SCH (07:55)
[2020-08-10] MEDS: Lactulose Oral Soln 20 GM/30 ML UDC PO SCH ×3 (07:56→20:32)
[2020-08-10] MEDS: Chlorhexidine Rinse 15 ML MOUTHWASH MM SCH ×2 (07:57→20:32)
[2020-08-10] MEDS ORDERED: *HR* Heparin 10,000 UNIT/10 ML VIAL IV PRN (08:00)
[2020-08-10] MEDS ORDERED: 0.9 % Sodium Chloride 250 ML IVC PRN (08:00)
[2020-08-10] MEDS ORDERED: Albumin 25% 25gram/100mL 25 GM/100 ML IV.SOLN ONE (08:46)
[2020-08-10] MEDS: Piperacillin/Tazobactam 3.375 GM in 0.9 % Sodium Chloride Mini Bag 100 ML IVPB SCH (11:33)
[2020-08-10] MEDS: predniSONE 20 MG TABLET PO SCH (12:53)
[2020-08-10 20:43] LABS: Influenza A PCR Negative (Negative); Influenza B PCR Negative (Negative); Resp. Syncytial Virus PCR Negative (Negative)
[2020-08-10 20:46] LABS: SARS-CoV-2 by PCR (In House) Negative (Negative)
[2020-08-11] MEDS: Ipratropium/Albuterol Neb 3 ML IH SCH ×5 (03:51→20:32)
[2020-08-11] MEDS: *HR* Heparin 5,000 UNIT/ML VIAL SQ SCH ×2 (07:08→19:32)
[2020-08-11] MEDS: Budesonide/Formoterol 160/4.5 1 PUFF INH IH SCH ×2 (07:44→20:32)
[2020-08-11] MEDS: Renal Vitamin 1 CAP CAPSULE PO SCH (08:37)
[2020-08-11] MEDS: Cholecalciferol (D-3) 1,000 UNIT (25MCG) TABLET PO SCH (08:38)
[2020-08-11] MEDS: Lactobacillus 1 EACH CAP.SPRINK PO SCH ×2 (08:38→21:21)
[2020-08-11] MEDS: predniSONE 20 MG TABLET PO SCH (08:38)
[2020-08-11] MEDS: Lactulose Oral Soln 20 GM/30 ML UDC PO SCH ×3 (08:38→21:21)
[2020-08-11] MEDS: Chlorhexidine Rinse 15 ML MOUTHWASH MM SCH ×2 (08:38→20:07)
[2020-08-11] MEDS: Folic Acid 1 MG TABLET PO SCH (08:38)
[2020-08-11] MEDS: Thiamine (B-1) 100 MG TABLET PO SCH (08:38)
[2020-08-11] MEDS: Nystatin POWDER 30 GM BOTTLE TP SCH ×2 (08:55→22:44)
[2020-08-11 10:53] LABS: Adenovirus Not Detected (Not Detect); Bordetella Pertussis Not Detected (Not Detect); Chlamydophila pneumoniae Not Detected (Not Detect); Coronavirus 229E Not Detected (Not Detect); Coronavirus HKU1 Not Detected (Not Detect); Coronavirus NL63 Not Detected (Not Detect); Coronavirus OC43 Not Detected (Not Detect); Human Metapneumovirus Not Detected (Not Detect); Human Rhinovirus/Enterovirus Not Detected (Not Detect); Influenza A Subtype 2009 H1 Not Detected (Not Detect); Influenza B Not Detected (Not Detect); Mycoplasma pneumoniae Not Detected (Not Detect); Parainfluenza Virus 1 Not Detected (Not Detect); Parainfluenza Virus 2 Not Detected (Not Detect); Parainfluenza Virus 3 Not Detected (Not Detect); Parainfluenza Virus 4 Not Detected (Not Detect); Respiratory Syncytial Virus Not Detected (Not Detect); SARS-CoV-2 Not Detected (Not Detect)
[2020-08-11] MEDS ORDERED: *HR* Heparin 10,000 UNIT/10 ML VIAL IV PRN (11:48)
[2020-08-11] MEDS ORDERED: 0.9 % Sodium Chloride 250 ML IVC PRN (11:48)
[2020-08-11] MEDS ORDERED: Glycopyrrolate 0.2 MG/ML VIAL IVP STA (11:49)
[2020-08-11 12:35] LABS: Hematocrit 23.1 % (37.5-50.1); Mean Corpuscular HGB Conc 31.6 g/dL (31.6-35.5); Mean Corpuscular Hemoglobin 30.5 pg (28.0-33.3); Mean Corpuscular Volume 96.7 fL (83.0-100.0); Platelet Count 141 K/mcL (140-400); Red Blood Count 2.39 M/mcL (4.19-5.50); Red Cell Distribution Width 17.9 % (11.5-14.5); White Blood Count 18.7 K/mcL (4.3-11.1)
[2020-08-11 12:37] LABS: VBG HCO3 27 mEq/L (21-27); VBG PCO2 55 mmHg (41-51); VBG PO2 57 mmHg (25-50)
[2020-08-11 12:38] LABS: Hemoglobin 7.3 g/dL (12.9-16.9)
[2020-08-11 12:52] LABS: Calcium 9.2 mg/dL (8.6-10.3); Magnesium 1.8 mg/dL (1.6-2.6); Potassium 3.8 mEq/L (3.5-5.1)
[2020-08-11] MEDS ORDERED: Norepinephrine 4 MG/254 ML IV.SOLN IVC ONE (14:15)
[2020-08-11] MEDS ORDERED: *HR* EPINEPHrine 1 MG/10 ML SYRINGE IVP ONE (14:15)
[2020-08-11] MEDS ORDERED: Albumin 25% 25gram/100mL 25 GM/100 ML IV.SOLN ONE (14:17)
[2020-08-11] MEDS: FentaNYL (PF) 1,000 MCG/100 ML IV.SOLN IVC SCH ×2 (18:30→23:52)
[2020-08-11] MEDS: Midazolam HCl 50 MG/100 ML IV.SOLN IVC SCH (18:30)
[2020-08-11 19:24] LABS: Troponin I 29.46 ng/mL (< 0.04)
[2020-08-11] MEDS ORDERED: Isovue-370 500 ML BOTTLE IVP ONE (19:26)
[2020-08-11] MEDS ORDERED: *HR* Heparin 5,000 UNIT/ML VIAL IVP PRN ×2 (20:03)
[2020-08-11] MEDS ORDERED: *HR* Heparin 5,000 UNIT/ML VIAL IVP ONE (20:03)
[2020-08-11] MEDS ORDERED: Heparin 25,000UNIT/250ML 1/2NS 25,000 UNIT/250 ML IV.SOLN IVC SCH (20:15)
[2020-08-11 20:30] LABS: Hemoglobin 6.9 g/dL (12.9-16.9)
[2020-08-11 20:32] LABS: Hematocrit 22.2 % (37.5-50.1); Immature Platelets 11.1 % (1.1-6.1); Mean Corpuscular HGB Conc 31.1 g/dL (31.6-35.5); Mean Corpuscular Hemoglobin 30.1 pg (28.0-33.3); Mean Corpuscular Volume 96.9 fL (83.0-100.0); Mean Platelet Volume 11.8 fL (9.4-12.4); Red Blood Count 2.29 M/mcL (4.19-5.50); Red Cell Distribution Width 18.2 % (11.5-14.5); White Blood Count 18.5 K/mcL (4.3-11.1)
[2020-08-11] MEDS ORDERED: 0.9 % Sodium Chloride 2,000 ML ONE (20:55)
[2020-08-11] MEDS ORDERED: ISOVUE-370 200 ML INFUS..BTL ONE (20:56)
[2020-08-11] MEDS ORDERED: Nitroglycerin 1,000 MCG/5 ML VIAL IV ONE (20:56)
[2020-08-11] MEDS ORDERED: *HR* Heparin 10,000 UNIT/10 ML VIAL ONE (20:56)
[2020-08-11] MEDS ORDERED: Heparin 1,000 UNITS/500 mL 0 ML ONE (20:56)
[2020-08-11 21:05] LABS: Calcium 9.1 mg/dL (8.6-10.3); Phosphorous 3.7 mg/dL (2.7-4.5); Potassium 3.8 mEq/L (3.5-5.1)
[2020-08-11] MEDS: Norepinephrine 4 MG/254 ML IV.SOLN IVC SCH (21:22)
[2020-08-11 22:23] LABS: ABG Base Excess -2 mEq/L (-2 to 3); ABG HCO3 24 mEq/L (21-27); ABG Oxygen Saturation 100 % (95-98); ABG PCO2 46 mmHg (35-45); ABG PH 7.33 pH Units (7.32-7.45); ABG PO2 291 mmHg (85-104); ABG TCO2 26 mEq/L (20-26); Blood Gas Modality ASSIST CONTROL; Blood Gas VT 500 cc
[2020-08-11 23:06] LABS: VBG Ionized Calcium 1.09 mmol/L (1.15-1.35)
[2020-08-11 23:18] LABS: INR 1.4; Prothrombin Time 16.5 Seconds (9.4-12.1)
[2020-08-12] MEDS ORDERED: 0.9 % Sodium Chloride 250 ML ONE ×2 (00:02→03:32)
[2020-08-12] MEDS: Ipratropium/Albuterol Neb 3 ML IH SCH ×7 (00:05→23:03)
[2020-08-12] MEDS: Norepinephrine 4 MG/254 ML IV.SOLN IVC SCH (03:31)
[2020-08-12 05:29] LABS: ABG Base Excess 3 mEq/L (-2 to 3); ABG HCO3 28 mEq/L (21-27); ABG Oxygen Saturation 96 % (95-98); ABG PCO2 47 mmHg (35-45); ABG PH 7.38 pH Units (7.32-7.45); ABG PO2 85 mmHg (85-104); ABG TCO2 30 mEq/L (20-26); Blood Gas Modality ASSIST CONTROL; Blood Gas VT 498 cc
[2020-08-12] MEDS: FentaNYL (PF) 1,000 MCG/100 ML IV.SOLN IVC SCH ×3 (06:50→21:35)
[2020-08-12] MEDS: Budesonide/Formoterol 160/4.5 1 PUFF INH IH SCH ×2 (07:10→20:20)
[2020-08-12] MEDS ORDERED: Perflutren Lipid Microsphere 1.3 ML in 0.9 % Sodium Chloride 8.7 ML IVP PRN (07:32)
[2020-08-12] MEDS: Renal Vitamin 1 CAP CAPSULE PO SCH (07:53)
[2020-08-12] MEDS: Cholecalciferol (D-3) 1,000 UNIT (25MCG) TABLET PO SCH (09:09)
[2020-08-12] MEDS: Folic Acid 1 MG TABLET PO SCH (09:09)
[2020-08-12] MEDS: Chlorhexidine Rinse 15 ML MOUTHWASH MM SCH ×2 (09:09→20:15)
[2020-08-12] MEDS: Thiamine (B-1) 100 MG TABLET PO SCH (09:09)
[2020-08-12] MEDS: predniSONE 20 MG TABLET PO SCH (09:10)
[2020-08-12] MEDS: Norepinephrine 8 MG in 0.9 % Sodium Chloride 4 MG/250 ML IVBAG IVC SCH ×2 (09:12→18:18)
[2020-08-12] MEDS: Lactobacillus 1 EACH CAP.SPRINK PO SCH ×2 (09:13→20:15)
[2020-08-12] MEDS: Lactulose Oral Soln 20 GM/30 ML UDC PO SCH ×3 (09:14→20:15)
[2020-08-12] MEDS: Nystatin POWDER 30 GM BOTTLE TP SCH ×2 (09:15→20:15)
[2020-08-12 10:37] LABS: Hematocrit 25.7 % (37.5-50.1); Mean Corpuscular HGB Conc 33.1 g/dL (31.6-35.5); Mean Corpuscular Hemoglobin 30.1 pg (28.0-33.3); Mean Corpuscular Volume 91.1 fL (83.0-100.0); Mean Platelet Volume 11.3 fL (9.4-12.4); Platelet Count 118 K/mcL (140-400); Red Blood Count 2.82 M/mcL (4.19-5.50); Red Cell Distribution Width 16.7 % (11.5-14.5)
[2020-08-12 10:39] LABS: VBG Ionized Calcium 1.08 mmol/L (1.15-1.35)
[2020-08-12 10:39] LABS: Hemoglobin 8.5 g/dL (12.9-16.9); White Blood Count 28.4 K/mcL (4.3-11.1)
[2020-08-12] MEDS ORDERED: Calcium Gluconate 1gm/50mL 1 GM/50 ML BAG IVPB ONE (10:45)
[2020-08-12 11:05] LABS: Magnesium 2.2 mg/dL (1.6-2.6); Potassium 3.5 mEq/L (3.5-5.1)
[2020-08-12 11:18] LABS: Troponin I 33.66 ng/mL (< 0.04)
[2020-08-12] MEDS ORDERED: Potassium Chloride Elixir 20 MEQ/15 ML UDC GTUBE ONE (13:43)
[2020-08-12 14:53] LABS: Albumin 3.7 g/dL (3.5-5.7); Albumin/Globulin Ratio 1.9 (1.1-2.2); Bilirubin,Direct 0.7 mg/dL (0.0-0.2); Bilirubin,Indirect 0.8 mg/dL (0.0-1.0); Bilirubin,Total 1.5 mg/dL (0.3-1.0); Total Protein 5.7 g/dL (6.4-8.9)
[2020-08-12] MEDS: Piperacillin/Tazobactam 3.375 GM in 0.9 % Sodium Chloride Mini Bag 100 ML IVPB SCH (16:36)
[2020-08-12] MEDS: Midazolam HCl 50 MG/100 ML IV.SOLN IVC SCH (20:51)
[2020-08-12] MEDS: Artificial Tears SOLN 15 ML BOTTLE BOTH EYES SCH (20:53)
[2020-08-12] MEDS: Pantoprazole 40 MG VIAL IVP SCH (20:53)
[2020-08-13] MEDS: Artificial Tears SOLN 15 ML BOTTLE BOTH EYES SCH ×6 (00:05→20:15)
[2020-08-13] MEDS: FentaNYL (PF) 1,000 MCG/100 ML IV.SOLN IVC SCH ×3 (03:18→21:30)
[2020-08-13 04:08] LABS: Hematocrit 24.2 % (37.5-50.1); Hemoglobin 8.1 g/dL (12.9-16.9); Immature Platelets 8.5 % (1.1-6.1); Mean Corpuscular HGB Conc 33.5 g/dL (31.6-35.5); Mean Corpuscular Volume 89.6 fL (83.0-100.0); Red Blood Count 2.7 M/mcL (4.19-5.50); Red Cell Distribution Width 17.2 % (11.5-14.5)
[2020-08-13 04:16] LABS: White Blood Count 30.2 K/mcL (4.3-11.1)
[2020-08-13 04:29] LABS: Calcium 8.9 mg/dL (8.6-10.3); Potassium 3.8 mEq/L (3.5-5.1)
[2020-08-13] MEDS: Ipratropium/Albuterol Neb 3 ML IH SCH ×5 (04:32→20:09)
[2020-08-13 04:33] LABS: Troponin I 28.11 ng/mL (< 0.04)
[2020-08-13 04:39] LABS: ABG Base Excess 3 mEq/L (-2 to 3); ABG HCO3 27 mEq/L (21-27); ABG Oxygen Saturation 98 % (95-98); ABG PCO2 39 mmHg (35-45); ABG PH 7.45 pH Units (7.32-7.45); ABG PO2 92 mmHg (85-104); ABG TCO2 29 mEq/L (20-26); Blood Gas Modality ASSIST CONTROL; Blood Gas VT 500 cc
[2020-08-13] MEDS: Piperacillin/Tazobactam 3.375 GM in 0.9 % Sodium Chloride Mini Bag 100 ML IVPB SCH ×2 (05:40→16:57)
[2020-08-13] MEDS: Norepinephrine 8 MG in 0.9 % Sodium Chloride 4 MG/250 ML IVBAG IVC SCH ×2 (06:30→16:55)
[2020-08-13] MEDS: Budesonide/Formoterol 160/4.5 1 PUFF INH IH SCH ×2 (08:06→20:10)
[2020-08-13] MEDS: Thiamine (B-1) 100 MG TABLET PO SCH (08:41)
[2020-08-13] MEDS: Chlorhexidine Rinse 15 ML MOUTHWASH MM SCH ×2 (08:41→20:15)
[2020-08-13] MEDS: Folic Acid 1 MG TABLET PO SCH (08:41)
[2020-08-13] MEDS: Lactulose Oral Soln 20 GM/30 ML UDC PO SCH ×3 (08:41→20:15)
[2020-08-13] MEDS: Pantoprazole 40 MG VIAL IVP SCH (08:41)
[2020-08-13] MEDS: Cholecalciferol (D-3) 1,000 UNIT (25MCG) TABLET PO SCH (08:42)
[2020-08-13] MEDS: predniSONE 20 MG TABLET PO SCH (08:42)
[2020-08-13] MEDS: Lactobacillus 1 EACH CAP.SPRINK PO SCH ×2 (08:43→20:15)
[2020-08-13] MEDS: Nystatin POWDER 30 GM BOTTLE TP SCH ×2 (08:43→20:16)
[2020-08-13] MEDS: Renal Vitamin 1 CAP CAPSULE PO SCH (08:44)
[2020-08-13 16:48] LABS: Appearance of Body Fluid Hazy (Clear); Volume of Body Fluid 21 mL
[2020-08-13] MEDS: Acetaminophen 325 MG TABLET PO PRN (20:15)
[2020-08-14] MEDS: Artificial Tears SOLN 15 ML BOTTLE BOTH EYES SCH ×6 (00:13→20:36)
[2020-08-14] MEDS: Midazolam HCl 50 MG/100 ML IV.SOLN IVC SCH (00:17)
[2020-08-14] MEDS: Ipratropium/Albuterol Neb 3 ML IH SCH ×7 (00:28→23:17)
[2020-08-14 03:57] LABS: Red Blood Count 2.75 M/mcL (4.19-5.50); Red Cell Distribution Width 17.3 % (11.5-14.5)
[2020-08-14 03:59] LABS: Hematocrit 24.4 % (37.5-50.1); Hemoglobin 8.2 g/dL (12.9-16.9); Immature Platelets 8.6 % (1.1-6.1); Mean Corpuscular HGB Conc 33.6 g/dL (31.6-35.5); Mean Corpuscular Hemoglobin 29.8 pg (28.0-33.3); Mean Corpuscular Volume 88.7 fL (83.0-100.0); Mean Platelet Volume 10.9 fL (9.4-12.4); White Blood Count 25.6 K/mcL (4.3-11.1)
[2020-08-14 04:15] LABS: Magnesium 1.9 mg/dL (1.6-2.6); Phosphorous 2.7 mg/dL (2.7-4.5)
[2020-08-14 04:16] LABS: Calcium 8.9 mg/dL (8.6-10.3); Potassium 3.9 mEq/L (3.5-5.1)
[2020-08-14] MEDS: Norepinephrine 8 MG in 0.9 % Sodium Chloride 4 MG/250 ML IVBAG IVC SCH (04:38)
[2020-08-14 04:50] LABS: ABG Base Excess 3 mEq/L (-2 to 3); ABG HCO3 27 mEq/L (21-27); ABG Oxygen Saturation 98 % (95-98); ABG PCO2 37 mmHg (35-45); ABG PH 7.46 pH Units (7.32-7.45); ABG PO2 105 mmHg (85-104); ABG TCO2 28 mEq/L (20-26); Blood Gas Modality ASSIST CONTROL; Blood Gas VT 500 cc
[2020-08-14] MEDS: Piperacillin/Tazobactam 3.375 GM in 0.9 % Sodium Chloride Mini Bag 100 ML IVPB SCH ×2 (07:14→17:20)
[2020-08-14] MEDS: Budesonide/Formoterol 160/4.5 1 PUFF INH IH SCH ×2 (07:15→20:08)
[2020-08-14] MEDS: Pantoprazole 40 MG VIAL IVP SCH (08:07)
[2020-08-14] MEDS: Lactulose Oral Soln 20 GM/30 ML UDC PO SCH ×3 (08:08→20:35)
[2020-08-14] MEDS: Chlorhexidine Rinse 15 ML MOUTHWASH MM SCH ×2 (08:08→20:35)
[2020-08-14] MEDS: Folic Acid 1 MG TABLET PO SCH (08:09)
[2020-08-14] MEDS: Thiamine (B-1) 100 MG TABLET PO SCH (08:09)
[2020-08-14] MEDS: predniSONE 20 MG TABLET PO SCH (08:09)
[2020-08-14] MEDS: Cholecalciferol (D-3) 1,000 UNIT (25MCG) TABLET PO SCH (08:09)
[2020-08-14] MEDS: Renal Vitamin 1 CAP CAPSULE PO SCH (08:09)
[2020-08-14] MEDS: Nystatin POWDER 30 GM BOTTLE TP SCH ×2 (08:10→20:36)
[2020-08-14] MEDS: Lactobacillus 1 EACH CAP.SPRINK PO SCH ×2 (08:11→20:35)
[2020-08-14] MEDS: FentaNYL (PF) 1,000 MCG/100 ML IV.SOLN IVC SCH ×2 (09:30→20:25)
[2020-08-14] MEDS: *HR* Heparin 5,000 UNIT/ML VIAL SQ SCH ×2 (17:15→23:52)
[2020-08-15] MEDS: Artificial Tears SOLN 15 ML BOTTLE BOTH EYES SCH ×6 (00:30→20:21)
[2020-08-15] MEDS: Ipratropium/Albuterol Neb 3 ML IH SCH ×6 (04:20→23:36)
[2020-08-15 04:30] LABS: ABG Base Excess 0 mEq/L (-2 to 3); ABG HCO3 26 mEq/L (21-27); ABG Oxygen Saturation 98 % (95-98); ABG PCO2 43 mmHg (35-45); ABG PH 7.38 pH Units (7.32-7.45); ABG PO2 115 mmHg (85-104); ABG TCO2 27 mEq/L (20-26); Blood Gas Modality ASSIST CONTROL; Blood Gas VT 500 cc
[2020-08-15 04:42] LABS: Hematocrit 27.6 % (37.5-50.1); Immature Platelets 8.7 % (1.1-6.1); Mean Corpuscular HGB Conc 32.6 g/dL (31.6-35.5); Mean Corpuscular Hemoglobin 29.9 pg (28.0-33.3); Mean Corpuscular Volume 91.7 fL (83.0-100.0); Mean Platelet Volume 12.4 fL (9.4-12.4); Red Blood Count 3.01 M/mcL (4.19-5.50); Red Cell Distribution Width 18.5 % (11.5-14.5); White Blood Count 27.2 K/mcL (4.3-11.1)
[2020-08-15 05:00] LABS: Calcium 8.9 mg/dL (8.6-10.3); Magnesium 2.1 mg/dL (1.6-2.6); Phosphorous 3.3 mg/dL (2.7-4.5)
[2020-08-15] MEDS: Piperacillin/Tazobactam 3.375 GM in 0.9 % Sodium Chloride Mini Bag 100 ML IVPB SCH ×2 (05:30→17:34)
[2020-08-15] MEDS: FentaNYL (PF) 1,000 MCG/100 ML IV.SOLN IVC SCH ×3 (05:30→22:35)
[2020-08-15] MEDS: *HR* Heparin 5,000 UNIT/ML VIAL SQ SCH ×3 (05:49→21:00)
[2020-08-15] MEDS: Nystatin POWDER 30 GM BOTTLE TP SCH ×2 (07:35→20:21)
[2020-08-15] MEDS: Dexmedetomidine HCl 400 MCG/100 ML MLS IVC SCH ×3 (07:36→17:00)
[2020-08-15] MEDS: Budesonide/Formoterol 160/4.5 1 PUFF INH IH SCH ×2 (07:57→19:52)
[2020-08-15] MEDS: Cholecalciferol (D-3) 1,000 UNIT (25MCG) TABLET PO SCH (08:02)
[2020-08-15] MEDS: Folic Acid 1 MG TABLET PO SCH (08:03)
[2020-08-15] MEDS: Thiamine (B-1) 100 MG TABLET PO SCH (08:03)
[2020-08-15] MEDS: predniSONE 20 MG TABLET PO SCH (08:03)
[2020-08-15] MEDS: Lactobacillus 1 EACH CAP.SPRINK PO SCH ×2 (08:03→20:21)
[2020-08-15] MEDS: Lactulose Oral Soln 20 GM/30 ML UDC PO SCH ×3 (08:03→20:27)
[2020-08-15] MEDS: Chlorhexidine Rinse 15 ML MOUTHWASH MM SCH ×2 (08:03→20:21)
[2020-08-15] MEDS: Pantoprazole 40 MG VIAL IVP SCH (08:03)
[2020-08-15] MEDS: Renal Vitamin 1 CAP CAPSULE PO SCH (08:04)
[2020-08-15] MEDS: Norepinephrine 8 MG in 0.9 % Sodium Chloride 4 MG/250 ML IVBAG IVC SCH (10:59)
[2020-08-16] MEDS: Artificial Tears SOLN 15 ML BOTTLE BOTH EYES SCH ×5 (00:13→15:55)
[2020-08-16] MEDS: Dexmedetomidine HCl 400 MCG/100 ML MLS IVC SCH (02:47)
[2020-08-16] MEDS: Ipratropium/Albuterol Neb 3 ML IH SCH ×4 (03:31→15:46)
[2020-08-16 05:00] LABS: ABG Base Excess 2 mEq/L (-2 to 3); ABG HCO3 26 mEq/L (21-27); ABG Oxygen Saturation 87 % (95-98); ABG PCO2 39 mmHg (35-45); ABG PH 7.43 pH Units (7.32-7.45); ABG PO2 52 mmHg (85-104); ABG TCO2 27 mEq/L (20-26); Blood Gas Modality AF; Blood Gas VT 500 cc
[2020-08-16] MEDS: Piperacillin/Tazobactam 3.375 GM in 0.9 % Sodium Chloride Mini Bag 100 ML IVPB SCH (05:51)
[2020-08-16] MEDS: *HR* Heparin 5,000 UNIT/ML VIAL SQ SCH ×2 (05:52→15:55)
[2020-08-16 05:58] LABS: Red Cell Distribution Width 18.1 % (11.5-14.5)
[2020-08-16 06:00] LABS: Hematocrit 28.8 % (37.5-50.1); Hemoglobin 9.5 g/dL (12.9-16.9); Immature Platelets 10.4 % (1.1-6.1); Mean Corpuscular Hemoglobin 29.5 pg (28.0-33.3); Mean Corpuscular Volume 89.4 fL (83.0-100.0); Platelet Count 66 K/mcL (140-400); Red Blood Count 3.22 M/mcL (4.19-5.50); White Blood Count 18.2 K/mcL (4.3-11.1)
[2020-08-16 06:05] LABS: INR 1.1
[2020-08-16 06:52] LABS: Calcium 9.1 mg/dL (8.6-10.3); Magnesium 1.8 mg/dL (1.6-2.6); Phosphorous 3.3 mg/dL (2.7-4.5); Potassium 4.3 mEq/L (3.5-5.1)
[2020-08-16] MEDS: FentaNYL (PF) 1,000 MCG/100 ML IV.SOLN IVC SCH (06:59)
[2020-08-16] MEDS: Budesonide/Formoterol 160/4.5 1 PUFF INH IH SCH (07:45)
[2020-08-16] MEDS: Renal Vitamin 1 CAP CAPSULE PO SCH (08:05)
[2020-08-16] MEDS: Nystatin POWDER 30 GM BOTTLE TP SCH (08:05)
[2020-08-16] MEDS: Pantoprazole 40 MG VIAL IVP SCH (08:21)
[2020-08-16] MEDS: Chlorhexidine Rinse 15 ML MOUTHWASH MM SCH (08:21)
[2020-08-16] MEDS ORDERED: predniSONE 10 MG TABLET PO SCH (09:00)
[2020-08-16] MEDS: Lactobacillus 1 EACH CAP.SPRINK PO SCH (09:07)
[2020-08-16] MEDS: Folic Acid 1 MG TABLET PO SCH (09:08)
[2020-08-16] MEDS: Cholecalciferol (D-3) 1,000 UNIT (25MCG) TABLET PO SCH (09:08)
[2020-08-16] MEDS: Lactulose Oral Soln 20 GM/30 ML UDC PO SCH ×2 (09:08→15:55)
[2020-08-16] MEDS: Thiamine (B-1) 100 MG TABLET PO SCH (09:08)
[2020-08-16] MEDS: Norepinephrine 8 MG in 0.9 % Sodium Chloride 4 MG/250 ML IVBAG IVC SCH (09:53)
[2020-08-16] MEDS ORDERED: *HR* LORazepam 2 MG/ML VIAL IVP PRN (15:39)
[2020-08-16 19:07] VITALS: BP 42/32
== END 2020-08-16 22:02 | disposition expired | DRG 194 ==
LOC: 2ANU 05:04 → EMEROOARM 05:04 → SUATTDRO 07:43 → 2ANU 09:39 → SUATTDRO 08-04 17:50 → 2NNU 08-07 16:57 → 2ANU 08-10 16:10 → ICNU 08-11 21:12
PROVIDERS: ADMIT Internal Medicine; ATTEND Internal Medicine